=== PATIENT | female | born 1965 | race Caucasian/White ===

== ENCOUNTER 2022-01-23 06:10 | Inpatient (IN) | payer BC, SELFPAY ==
[2022-01-23] VITALS (10 sets, daily range): BP systolic 142–189; BP diastolic 77–101; PULSE 63–98; RESP 16–24; TEMP 36.3–36.9; O2SAT 91–98; BMI 31.1; BMI 31.5
--- NOTE | 2022-01-23 06:46 | CRLHL7_ITS ---
For Patients: As a result of the Century Cures Act, medical imaging exams and procedure reports are released immediately into your electronic medical record. You may view this report before your referring provider. If you have questions, please contact your health care provider. INDICATION: Right lower quadrant pain TECHNIQUE: CT abdomen and pelvis without contrast COMPARISON: None. FINDINGS: Kidney/ureters: Right intrarenal calculus measuring 4 mm. Kidneys appear symmetric. No evidence of ureteral calculus or hydronephrosis. Liver/gallbladder/bile ducts: The liver is normal in size, shape and attenuation. Gallbladder surgically absent. No biliary dilatation. Spleen/pancreas/adrenal glands: The spleen, adrenal glands and pancreas are within normal limits. GI tract: Moderately dilated fluid-filled loops of bowel within the left lower to mid abdomen. Although evaluation is limited due to lack of IV contrast suspect transition point within the mid abdomen on series 4, image 33. Is associated swirling and inflammation of the mesentery. Colonic diverticulosis without evidence of acute diverticulitis. Mild fecal retention throughout the colon. The appendix appears unremarkable. Abdominal wall/omentum/peritoneum: No free air or significant free fluid. No mass or inflammation. Lymph nodes: Few mildly prominent right lower quadrant mesenteric lymph nodes which are nonspecific and may be reactive. Pelvis: Unremarkable pelvis. Lower chest: Unremarkable. IMPRESSION: Moderately dilated fluid-filled loops of bowel within the left lower to mid abdomen. Although evaluation is limited due to lack of IV contrast suspect transition point within the mid abdomen. Findings concerning for small bowel obstruction, possibly a closed loop. Colonic diverticulosis without evidence of acute diverticulitis. Nonobstructing right renal calculus. Please note that all CT scans at this facility use dose modulation, iterative reconstruction, and/or weight-based dosing when appropriate to reduce radiation dose to as low as reasonably achievable. Dictated by Azeem Tavera MD @ 01/23/2022 8:09:56 AM (Electronically Signed)
--- NOTE | 2022-01-23 06:49 | ED_ITS ---
HPI - General Adult General Date Seen: 01/23/22 <Reymundo Magallanes MD - Last Filed: 01/23/22 08:34> Chief complaint: Abdominal Pain <Reymundo Magallanes MD - Last Filed: 01/23/22 08:34> Stated complaint: Appendicitis <Reymundo Magallanes MD - Last Filed: 01/23/22 08:34> Time Seen by Provider: 01/23/22 06:33 <Reymundo Magallanes MD - Last Filed: 01/23/22 08:34> Source: patient <Reymundo Magallanes MD - Last Filed: 01/23/22 08:34> Mode of arrival: ambulatory <Reymundo Magallanes MD - Last Filed: 01/23/22 08:34> Limitations: no limitations <Reymundo Magallanes MD - Last Filed: 01/23/22 08:34> History of Present Illness HPI narrative: Patient is a 56-year-old female who was working overnight POST when she had sudden onset of pain at around 2:00 a.m.. This pain was initially generalized but is more severe on her right side. There has been no dysuria. She has vomited several times and has had the dry heaves. No fevers or chills. Her diet yesterday consisted of Doritos and a candy bar. She has had a previous cholecystectomy and tubal ligation. She is not having any acid reflux symptoms. She has never had this type of pain before. <Reymundo Magallanes MD - Last Filed: 01/23/22 08:34> Related Data Home medications: Home Medications Medication Instructions Recorded Confirmed amlodipine 10 mg tablet 10 mg PO DAILY 01/23/22 01/23/22 cetirizine 10 mg tablet 10 mg PO DAILY PRN 01/23/22 01/23/22 epinephrine 0.3 mg/0.3 mL 0.3 ml IM PRN PRN 01/23/22 01/23/22 injection, auto-injector fluticasone propionate 50 2 spray intranasal DAILY 01/23/22 01/23/22 mcg/actuation nasal spray,suspension ibuprofen 600 mg tablet 600 mg PO Q6H PRN 01/23/22 01/23/22 levothyroxine 137 mcg tablet 137 mcg PO DAILY 01/23/22 01/23/22 <Reymundo Magallanes MD - Last Filed: 01/23/22 08:34> Allergies/adverse reactions: Allergies Allergy/AdvReac Type Severity Reaction Status Date / Time Cephalosporins Allergy Severe Anaphylaxis Verified 01/23/22 06:33 iodine Allergy Severe Anaphylaxis Verified 01/23/22 06:33 lemon Allergy Severe Anaphylaxis Verified 01/23/22 06:33 sleetmute Allergy Severe Anaphylaxis Verified 01/23/22 06:33 Penicillins Allergy Severe Anaphylaxis Verified 01/23/22 06:33 tree nut Allergy Severe Anaphylaxis Verified 01/23/22 06:33 cefaclor [From Ceclor] Allergy Unknown Verified 01/23/22 06:33 cefprozil [From Cefzil] Allergy Unknown Verified 01/23/22 06:33 cefuroxime [From Ceftin] Allergy Unknown Verified 01/23/22 06:33 <Reymundo Magallanes MD - Last Filed: 01/23/22 08:34> Review of Systems Narrative: Review of systems is outlined above otherwise noted to be negative. Her other health problems include hypertension and Graves disease. She takes amlodipine and levothyroxine and a 2nd blood pressure medication that she does not recall the name of. <Reymundo Magallanes MD - Last Filed: 01/23/22 08:34> [facility] Medical History: Medical History (Updated 01/23/22 @ 08:19 by Nabil Gilbert MD) Asthma Chronic tonsil and adenoid disease Graves disease Hypertension Motion sickness <Reymundo Magallanes MD - Last Filed: 01/23/22 08:34> Surgical History: Surgical History (Updated 01/23/22 @ 07:12 by Heike Arita RN) H/O hernia repair H/O tubal ligation Hx of cholecystectomy <Reymundo Magallanes MD - Last Filed: 01/23/22 08:34> Social History: Social History Smoking Status: Current every day smoker What tobacco products do you use: cigarettes Smoking packs per day: 0.5 Smoking cigarettes per day: 10.0 Years smoked: 30 Smoking pack-years: 15.00 Do you use any of these nicotine containing products: None Second hand tobacco smoke exposure: No Non-prescribed substance use: denies use service: No <Reymundo Magallanes MD - Last Filed: 01/23/22 08:34> Exam Narrative: Exam Narrative: Vitals noted. HEENT: Conjunctiva clear. Neck is supple without adenopathy. Lungs: Clear to auscultation in all spaulding. No wheezes, rales, rhonchi. Heart: Regular rate and rhythm without murmur. Abdomen: Her abdomen is soft. No guarding, rigidity, rebound. Bowel sounds are normal. No palpable masses. She is very tender but her exam is hard to reproduce. Does seem that the right mid abdomen is the most tender area. Extremities: No cyanosis or edema. Good distal pulses. Skin: No abnormalities noted of the exposed skin. Neurologic: Awake, alert, fully oriented. Neurologic exam is nonfocal. <Reymundo Magallanes MD - Last Filed: 01/23/22 08:34> Const: Vital Signs, click to edit/add: Vital Signs - 24 hr 01/23/22 06:27 01/23/22 08:20 01/23/22 08:40 Temperature 97.7 F 97.4 F L Pulse Rate [Left P ulse Oximeter] 84 78 69 Respiratory Rate 24 16 16 Blood Pressure [Ri ght Upper Arm] 173/101 H 156/80 H 156/80 H Pulse Oximetry 98 98 98 Oxygen Delivery Me thod Room Air Room Air Room Air 01/23/22 09:00 01/23/22 09:20 Temperature 97.4 F L Pulse Rate [Left P ulse Oximeter] 93 98 Respiratory Rate 16 16 Blood Pressure [Ri ght Upper Arm] 142/88 H 142/80 H Pulse Oximetry 97 95 Oxygen Delivery Me thod Room Air Room Air <Reymundo Magallanes MD - Last Filed: 01/23/22 08:34> Vital Signs, click to edit/add: Vital Signs - 24 hr 01/23/22 06:27 01/23/22 08:20 01/23/22 08:40 Temperature 97.7 F 97.4 F L Pulse Rate [Left P ulse Oximeter] 84 78 69 Respiratory Rate 24 16 16 Blood Pressure [Ri ght Upper Arm] 173/101 H 156/80 H 156/80 H Pulse Oximetry 98 98 98 Oxygen Delivery Me thod Room Air Room Air Room Air 01/23/22 09:00 01/23/22 09:20 Temperature 97.4 F L Pulse Rate [Left P ulse Oximeter] 93 98 Respiratory Rate 16 16 Blood Pressure [Ri ght Upper Arm] 142/88 H 142/80 H Pulse Oximetry 97 95 Oxygen Delivery Me thod Room Air Room Air <Nabil Gilbert MD - Last Filed: 01/23/22 10:38> Course Course Hospital Course: Patient is seen and examined. Labs and CT of her abdomen are ordered. IV is established and normal saline at a rate of 500 mL/hour is ordered. She is given fentanyl 50 mcg IV and Zofran 4 mg IV. <Reymundo Magallanes MD - Last Filed: 01/23/22 08:34> Vital Signs Vital signs: Initial Vital Signs Temperature 97.7 F 01/23/22 06:27 Temperature Source Temporal Artery Scan 01/23/22 06:27 Pulse Rate 84 01/23/22 06:27 Respiratory Rate 24 01/23/22 06:27 Blood Pressure 173/101 H 01/23/22 06:27 Blood Pressure Mean 125 01/23/22 06:27 Blood Pressure Position Semi-Fowlers 01/23/22 06:27 Pulse Oximetry 98 01/23/22 06:27 Oxygen Delivery Method 01/23/22 06:27 Vital Signs Temperature 97.7 F 01/23/22 06:27 Pulse Rate 84 01/23/22 06:27 Respiratory Rate 24 01/23/22 06:27 Blood Pressure 173/101 H 01/23/22 06:27 Pulse Oximetry 98 01/23/22 06:27 Oxygen Delivery Method 01/23/22 06:27 Temperature 97.8 F 01/23/22 09:47 Pulse Rate 72 01/23/22 09:47 Respiratory Rate 16 01/23/22 09:47 Blood Pressure 189/81 H 01/23/22 09:47 Pulse Oximetry 96 01/23/22 09:47 Oxygen Delivery Method 01/23/22 09:47 <Reymundo Magallanes MD - Last Filed: 01/23/22 08:34> Initial Vital Signs Temperature 97.7 F 01/23/22 06:27 Temperature Source Temporal Artery Scan 01/23/22 06:27 Pulse Rate 84 01/23/22 06:27 Respiratory Rate 24 01/23/22 06:27 Blood Pressure 173/101 H 01/23/22 06:27 Blood Pressure Mean 125 01/23/22 06:27 Blood Pressure Position Semi-Fowlers 01/23/22 06:27 Pulse Oximetry 98 01/23/22 06:27 Oxygen Delivery Method 01/23/22 06:27 Vital Signs Temperature 97.7 F 01/23/22 06:27 Pulse Rate 84 01/23/22 06:27 Respiratory Rate 24 01/23/22 06:27 Blood Pressure 173/101 H 01/23/22 06:27 Pulse Oximetry 98 01/23/22 06:27 Oxygen Delivery Method 01/23/22 06:27 Temperature 97.8 F 01/23/22 09:47 Pulse Rate 72 01/23/22 09:47 Respiratory Rate 16 01/23/22 09:47 Blood Pressure 189/81 H 01/23/22 09:47 Pulse Oximetry 96 01/23/22 09:47 Oxygen Delivery Method 01/23/22 09:47 <Nabil Gilbert MD - Last Filed: 01/23/22 10:38> Medical Decision Making MDM Narrative Medical decision making narrative: A scald by regarding the patient's CT scan, and she has a probable small- bowel obstruction, question close loop. Left lower abdomen. Her appendix looks normal. Her laboratory studies show an elevated white blood cell count. The patient will be admitted, surgical consult, will talk to the hospitalist. <Nabil Gilbert MD - Last Filed: 01/23/22 10:38> Lab Data Labs: Lab Results 01/23/22 01/23/22 01/23/22 Range/Units 06:45 06:45 08:00 WBC 13.08 H (4.50-11.00) K/uL RBC 4.72 (4.00-5.20) m/uL Hgb 14.1 (12.0-16.0) gm/dL Hct 41.4 (33.0-51.0) % MCV 88 (80-100) fL MCH 30 (26-34) pg MCHC 34 (32-36) gm/dL RDW Coeff of Sukhdev 11.7 (11.5-15.5) % Plt Count 215 (140-440) K/uL Neut % (Auto) 82.4 H (42.0-72.0) % Lymph % (Auto) 11.9 L (20-44) % [place] % (Auto) 5.0 (0.0-11.0) % Eos % (Auto) 0.2 (0.0-7.0) % Baso % (Auto) 0.4 (0.0-3.0) % Neut # (Auto) 10.80 H (1.7-7.0) K/uL Lymph # (Auto) 1.60 (0.90-2.90) K/uL [place] # (Auto) 0.70 (0.00-0.90) K/UL Eos # (Auto) 0.00 (0.00-0.50) K/uL Baso # (Auto) 0.10 (0.00-0.30) K/uL Abs Immat Gran (auto) 0.00 (0.00-0.30) K/uL Imm/Tot Granulo (auto) 0.1 % Sodium 138 (135-149) mmol/L Potassium 3.5 L (3.6-5.1) mmol/L Chloride 104 (96-114) mmol/L Carbon Dioxide 26 (20-32) mmol/L BUN 16 (7-30) mg/dL Creatinine 0.7 (0.5-1.5) mg/dL Estimated Creat Clear 72.66 Estimated GFR 103 ml/min Glucose 133 H (60-115) mg/dL Calcium 9.3 (8.4-10.6) mg/dL Total Bilirubin 0.7 (0.1-1.5) mg/dL Direct Bilirubin 0.1 (0.0-0.5) mg/dL AST 27 (12-35) U/L ALT 25 (4-35) U/L Alkaline Phosphatase 97 (40-150) U/L Total Protein 7.2 (6.0-8.3) g/dL Albumin 4.2 (3.3-5.0) g/dL Urine Color Yellow (Yellow) Urine Appearance Clear (Clear) Urine pH 7.0 (5.0-8.5) Ur Specific [place] 1.025 (1.000-1.030) Urine Protein 2+ A (Negative) Urine Glucose (UA) Negative (Negative) Urine Ketones 3+ A (Negative) Urine Blood 2+ A (Negative) Urine Nitrite Negative (Negative) Urine Bilirubin Negative (Negative) Urine Urobilinogen 0.2 (0.2-1.0) Ur Leukocyte Esterase Negative (Negative) Urine RBC 5-10 A (0-2) Urine WBC 0-2 (0-5) Ur Squamous Epith Cells Few (None-Few) Urine Bacteria None (None) SARS-CoV-2 (PCR) (Negative) Influenza Type A (PCR) (Negative) Influenza Type B (PCR) (Negative) RSV (PCR) (Negative) 01/23/22 Range/Units 08:14 WBC (4.50-11.00) K/uL RBC (4.00-5.20) m/uL Hgb (12.0-16.0) gm/dL Hct (33.0-51.0) % MCV (80-100) fL MCH (26-34) pg MCHC (32-36) gm/dL RDW Coeff of Sukhdev (11.5-15.5) % Plt Count (140-440) K/uL Neut % (Auto) (42.0-72.0) % Lymph % (Auto) (20-44) % [place] % (Auto) (0.0-11.0) % Eos % (Auto) (0.0-7.0) % Baso % (Auto) (0.0-3.0) % Neut # (Auto) (1.7-7.0) K/uL Lymph # (Auto) (0.90-2.90) K/uL [place] # (Auto) (0.00-0.90) K/UL Eos # (Auto) (0.00-0.50) K/uL Baso # (Auto) (0.00-0.30) K/uL Abs Immat Gran (auto) (0.00-0.30) K/uL Imm/Tot Granulo (auto) % Sodium (135-149) mmol/L Potassium (3.6-5.1) mmol/L Chloride (96-114) mmol/L Carbon Dioxide (20-32) mmol/L BUN (7-30) mg/dL Creatinine (0.5-1.5) mg/dL Estimated Creat Clear Estimated GFR ml/min Glucose (60-115) mg/dL Calcium (8.4-10.6) mg/dL Total Bilirubin (0.1-1.5) mg/dL Direct Bilirubin (0.0-0.5) mg/dL AST (12-35) U/L ALT (4-35) U/L Alkaline Phosphatase (40-150) U/L Total Protein (6.0-8.3) g/dL Albumin (3.3-5.0) g/dL Urine Color (Yellow) Urine Appearance (Clear) Urine pH (5.0-8.5) Ur Specific [place] (1.000-1.030) Urine Protein (Negative) Urine Glucose (UA) (Negative) Urine Ketones (Negative) Urine Blood (Negative) Urine Nitrite (Negative) Urine Bilirubin (Negative) Urine Urobilinogen (0.2-1.0) Ur Leukocyte Esterase (Negative) Urine RBC (0-2) Urine WBC (0-5) Ur Squamous Epith Cells (None-Few) Urine Bacteria (None) SARS-CoV-2 (PCR) Negative SARS-CoV-2 (Negative) Influenza Type A (PCR) Negative PCR FLU A (Negative) Influenza Type B (PCR) Negative PCR FLU B (Negative) RSV (PCR) Negative PCR RSV (Negative) <Reymundo Magallanes MD - Last Filed: 01/23/22 08:34> Lab Results 01/23/22 01/23/22 01/23/22 Range/Units 06:45 06:45 08:00 WBC 13.08 H (4.50-11.00) K/uL RBC 4.72 (4.00-5.20) m/uL Hgb 14.1 (12.0-16.0) gm/dL Hct 41.4 (33.0-51.0) % MCV 88 (80-100) fL MCH 30 (26-34) pg MCHC 34 (32-36) gm/dL RDW Coeff of Sukhdev 11.7 (11.5-15.5) % Plt Count 215 (140-440) K/uL Neut % (Auto) 82.4 H (42.0-72.0) % Lymph % (Auto) 11.9 L (20-44) % [place] % (Auto) 5.0 (0.0-11.0) % Eos % (Auto) 0.2 (0.0-7.0) % Baso % (Auto) 0.4 (0.0-3.0) % Neut # (Auto) 10.80 H (1.7-7.0) K/uL Lymph # (Auto) 1.60 (0.90-2.90) K/uL [place] # (Auto) 0.70 (0.00-0.90) K/UL Eos # (Auto) 0.00 (0.00-0.50) K/uL Baso # (Auto) 0.10 (0.00-0.30) K/uL Abs Immat Gran (auto) 0.00 (0.00-0.30) K/uL Imm/Tot Granulo (auto) 0.1 % Sodium 138 (135-149) mmol/L Potassium 3.5 L (3.6-5.1) mmol/L Chloride 104 (96-114) mmol/L Carbon Dioxide 26 (20-32) mmol/L BUN 16 (7-30) mg/dL Creatinine 0.7 (0.5-1.5) mg/dL Estimated Creat Clear 72.66 Estimated GFR 103 ml/min Glucose 133 H (60-115) mg/dL Calcium 9.3 (8.4-10.6) mg/dL Total Bilirubin 0.7 (0.1-1.5) mg/dL Direct Bilirubin 0.1 (0.0-0.5) mg/dL AST 27 (12-35) U/L ALT 25 (4-35) U/L Alkaline Phosphatase 97 (40-150) U/L Total Protein 7.2 (6.0-8.3) g/dL Albumin 4.2 (3.3-5.0) g/dL Urine Color Yellow (Yellow) Urine Appearance Clear (Clear) Urine pH 7.0 (5.0-8.5) Ur Specific [place] 1.025 (1.000-1.030) Urine Protein 2+ A (Negative) Urine Glucose (UA) Negative (Negative) Urine Ketones 3+ A (Negative) Urine Blood 2+ A (Negative) Urine Nitrite Negative (Negative) Urine Bilirubin Negative (Negative) Urine Urobilinogen 0.2 (0.2-1.0) Ur Leukocyte Esterase Negative (Negative) Urine RBC 5-10 A (0-2) Urine WBC 0-2 (0-5) Ur Squamous Epith Cells Few (None-Few) Urine Bacteria None (None) SARS-CoV-2 (PCR) (Negative) Influenza Type A (PCR) (Negative) Influenza Type B (PCR) (Negative) RSV (PCR) (Negative) 01/23/22 Range/Units 08:14 WBC (4.50-11.00) K/uL RBC (4.00-5.20) m/uL Hgb (12.0-16.0) gm/dL Hct (33.0-51.0) % MCV (80-100) fL MCH (26-34) pg MCHC (32-36) gm/dL RDW Coeff of Sukhdev (11.5-15.5) % Plt Count (140-440) K/uL Neut % (Auto) (42.0-72.0) % Lymph % (Auto) (20-44) % [place] % (Auto) (0.0-11.0) % Eos % (Auto) (0.0-7.0) % Baso % (Auto) (0.0-3.0) % Neut # (Auto) (1.7-7.0) K/uL Lymph # (Auto) (0.90-2.90) K/uL [place] # (Auto) (0.00-0.90) K/UL Eos # (Auto) (0.00-0.50) K/uL Baso # (Auto) (0.00-0.30) K/uL Abs Immat Gran (auto) (0.00-0.30) K/uL Imm/Tot Granulo (auto) % Sodium (135-149) mmol/L Potassium (3.6-5.1) mmol/L Chloride (96-114) mmol/L Carbon Dioxide (20-32) mmol/L BUN (7-30) mg/dL Creatinine (0.5-1.5) mg/dL Estimated Creat Clear Estimated GFR ml/min Glucose (60-115) mg/dL Calcium (8.4-10.6) mg/dL Total Bilirubin (0.1-1.5) mg/dL Direct Bilirubin (0.0-0.5) mg/dL AST (12-35) U/L ALT (4-35) U/L Alkaline Phosphatase (40-150) U/L Total Protein (6.0-8.3) g/dL Albumin (3.3-5.0) g/dL Urine Color (Yellow) Urine Appearance (Clear) Urine pH (5.0-8.5) Ur Specific [place] (1.000-1.030) Urine Protein (Negative) Urine Glucose (UA) (Negative) Urine Ketones (Negative) Urine Blood (Negative) Urine Nitrite (Negative) Urine Bilirubin (Negative) Urine Urobilinogen (0.2-1.0) Ur Leukocyte Esterase (Negative) Urine RBC (0-2) Urine WBC (0-5) Ur Squamous Epith Cells (None-Few) Urine Bacteria (None) SARS-CoV-2 (PCR) Negative SARS-CoV-2 (Negative) Influenza Type A (PCR) Negative PCR FLU A (Negative) Influenza Type B (PCR) Negative PCR FLU B (Negative) RSV (PCR) Negative PCR RSV (Negative) <Nabil Gilbert MD - Last Filed: 01/23/22 10:38> Discharge Plan Discharge Clinical Impression: Bowel obstruction <Reymundo Magallanes MD - Last Filed: 01/23/22 08:34> Patient Disposition: Admitted As Inpatient <Reymundo Magallanes MD - Last Filed: 01/23/22 08:34> Condition: Improved <Reymundo Magallanes MD - Last Filed: 01/23/22 08:34>
[2022-01-23 07:00] LABS: Basophils Percent Auto 0.4 % (0.0-3.0); Eosinophils Percent Auto 0.2 % (0.0-7.0); Hematocrit 41.4 % (33.0-51.0); Hemoglobin* 14.1 gm/dL (12.0-16.0); Immature Granulocytes Pct Auto 0.1 %; Lymphocytes Percent Auto 11.9 % (20-44); Mean Corpuscular HGB Conc 34 gm/dL (32-36); Mean Corpuscular Hemoglobin 30 pg (26-34); Mean Corpuscular Volume 88 fL (80-100); Neutrophils Percent Auto 82.4 % (42.0-72.0); Platelet Count* 215 K/uL (140-440); RDW Coefficient of Variation % 11.7 % (11.5-15.5); Red Blood Count 4.72 m/uL (4.00-5.20); White Blood Count* 13.08 K/uL (4.50-11.00)
[2022-01-23 07:03] LABS: Slide Review Reflex No
[2022-01-23] MEDS: 0.9 % SODIUM CHLORIDE 1000 ml 1,000 ML 500 ML IV (07:08)
[2022-01-23] MEDS: fentaNYL 100 MCG/2 ML inj 50 MCG IVP (07:15)
[2022-01-23] MEDS: ONDANSETRON 2 MG/ML inj 4 MG IVP ×3 (07:15→23:38)
--- OUTSIDE RECORDS SUMMARY | 2022-01-23 07:15 | XMS_ITS | Encounter Summary ---
:1965 Author Organization [facility] Address [address] [place] [address] Care Team Providers Name Role Phone Fausto Good P.A.-C. Primary Care Provider [phone] Reason for Visit Reason Comments Hypertension Encounter Details Date Type Department Care Team Description 08/30/2021 Clinical Communication Department of Fausto Lam, Hypertension Medicine, [place] [facility], in [address] [address] [place], [place] [phone] (Work) [phone] Social History Tobacco Use Types Packs/Day Years Used Date Smoking Tobacco: Every Day Cigarettes 0.5 35 S tarted: 02/10/1982 E-cigarettes Smokeless Tobacco: Never Alcohol Use Standard Drinks/Week Comments Yes 0 (1 standard drink = 0.6 oz pure alcoho l) Daily caffeine Alcohol Habits Answer Date Recorded How often do you have a drink containing alcohol? 2-4 times a month 02/16/2021 How many drinks containing alcohol do you have on a 1 or 2 02/16/2021 typical day when you are drinking? How often do you have six or more drinks on one Never 02/16/2021 occasion? Social Isolation Answer Date Recorded In a typical week, how many times do you More than three blue es a week 02/16/2021 talk on the phone with family, friends, or neighbors? How often do you get together with friends Never 02/16/2021 or relatives? How often do you attend pentecostalism or Never 2021 sabianist services? Do you belong to any clubs or No 02/16/2021 organizations such as pentecostalism groups, unions, fraternal or athletic groups, or school groups? How often do you attend meetings of the Never 02/16/2021 clubs or organizations you belong to? Are you now , , , 02/16/2021 , never or living with a partner? Physical Activity Answer Date Recorded On average, how many days per week do you engage in moderate to 5 days 02/16/2021 strenuous exercise (like walking fast, running, jogging, dancing, swimming, biking, or other activities that cause a light or heavy sweat)? On average, how many minutes do you engage in exercise at th is 60 min 02/16/2021 level? Stress Answer Date Recorded Do you feel stress - tense, restless, nervous, or To some ex tent 02/16/2021 anxious, or unable to sleep at night because your mind is troubled all the time - these days? Financial Resource Strain Answer Date Recorded How hard is it for you to pay for the very basics like Somew hat hard 02/16/2021 food, housing, medical care, and heating? Intimate Partner Violence Answer Date Recorded Within the last year, have you been afraid of your partner o r No 02/16/2021 ex-partner? Within the last year, have you been humiliated or emotionall y No 02/16/2021 abused in other ways by your partner or ex-partner? Within the last year, have you been kicked, hit, slapped, or No 02/16/2021 otherwise physically hurt by your partner or ex-partner? Within the last year, have you been raped or forced to have any No 02/16/2021 kind of sexual activity by your partner or ex-partner? Food Insecurity Answer Date Recorded Within the past 12 months, you worried that your food would Never true 02/16/2021 run out before you got money to buy more. Within the past 12 months, the food you bought just didn't N ever true 02/16/2021 last and you didn't have money to get more. Transportation Needs Answer Date Recorded In the past 12 months, has lack of transportation kept you f rom No 02/16/2021 medical appointments or from getting medications? In the past 12 months, has lack of transportation kept you f rom No 02/16/2021 meetings, work, or getting things needed for daily living? Housing Stability Answer Date Recorded In the last 12 months, was there a time when you were not ab le No 02/16/2021 to pay the mortgage or rent on time? In the last 12 months, how many places have you lived? 1 02/16/2021 In the last 12 months, was there a time when you did not hav e a No 02/16/[address] or slept in a care home (including now)? Education Answer Date Recorded What is the highest level of school you have Some college, n o degree 09/27/2018 completed or the highest degree you have received? Sex Assigned at Date Recorded Female 10/01/2017 7:47 AM CDT documented as of this encounter Miscellaneous Notes Telephone Encounter - Francy Dinh - 08/30/2021 12:24 PM CDT Left message for patient to return call to clinic. Does the patient need to speak to nursing? no Action needed: Patient due for one month follow up blood pressure check office visit. Orders in, please assist with scheduling. documented in this encounter Plan of Treatment Not on filedocumented as of this encounter Visit Diagnoses Not on filedocumented in this encounter Additional Health Concerns Assessment Noted Time PHQ-9 Depression Total Score: 7 08/23/2021 2:57 PM CDT documented as of this encounter Care Teams Cabinet Assembler Relationship Specialty Start Date End Date Fausto Good P.A.-C. PCP - General 07/25/[address] [place] [phone] documented as of this encounter
--- OUTSIDE RECORDS SUMMARY | 2022-01-23 07:15 | XMS_ITS | Encounter Summary ---
:1965 Author Organization [facility] Address [address] [place] [address] Care Team Providers Name Role Phone Fausto Good P.A.-C. Primary Care Provider [phone] Reason for Referral Outpatient (Routine) - Pending Review Specialty Diagnoses / Procedures Referred By Contact Refer red To Contact Diagnoses Primary Osteoarthritis Knee Left Asad Eubanks M.D. [facility] Region Procedures ptx-vcff-euxppqpf-elbow arthrocentesis: L knee joint [address] [place] [phone] Referral ID Status Reason Start Date Expiration Date Visits V isits Requested Authorized [id number] Pending 07/18/2021 07/18/2022 1 1 Review Reason for Visit Reason Comments Arthritis Injection Visit Appointment Request (Routine) - Closed Specialty Diagnoses / Procedures Referred By Contact Refer red To Contact Orthopedic Surgery Asad Eubanks M.D. [address] [place] [phone] Referral ID Status Reason Start Date Expiration Date Visits Requ ested Visits Authorized [id number] Closed 06/15/2021 06/15/2022 1 1 Encounter Details Date Type Department Care Team Description 07/18/2021 Office Visit Department of Asad Eubanks Primary Os teoarthritis Orthopedic Surgery eduardo Pandya M.D. Knee Left (Primary Dx) [place], [place] [address] [place] [phone] Social History Tobacco Use Types Packs/Day Years [...] or relatives? How often do you attend anabaptism or Never 2021 anabaptist services? Do you belong to any clubs or No 02/16/2021 organizations such as anabaptism groups, unions, fraternal or athletic groups, or [...] place to sleep or slept in a half-way (including now)? Education Answer Date Recorded What is the highest level of school you have Some college, n o degree 09/27/2018 completed or the highest degree you have received? Sex Assigned at Date Recorded Female 10/01/2017 7:47 AM CDT documented as of this encounter Procedure Notes Asad Eubanks M.D. - 07/18/2021 3:30 PM CDTAssociated Order(s): ttz-bnga-vszugxvo-elbow arthrocentesis: L knee joint Post-Procedure Diagnose(s): Primary Osteoarthritis Knee Left Knee site- L knee joint : injection only Date/Time: 07/18/2021 9:23 AM Performed by: Asad Eubanks M.D. Authorized by: Asad Eubanks M.D. PROCEDURE DETAILS Procedure Location knee Knee site: L knee joint Site prep: patient was prepped and draped in usual sterile fashion Patient position: seated Procedural approach: anterolateral Procedure performed: injection only Needle gauge: 21 G Procedural Medication The following medications were administered at the target site(s) Viscosupplement: 20 mg sodium hyaluronate (viscosup) 10 mg/mL(mw 2.4 -3.6 million) CONSENT Consent obtained: written UNIVERSAL PROTOCOL All relevant documentation and testing were reviewed and available. All required blood products, implants, devices and or special equipment were made available as applicable. Pre-procedure verificationwas conducted and the correct site was marked if required. A fire risk assessment was done as applicable. The procedural time-out to verify correct patient, correct side/site, and procedure was conducted prior to performing the procedure and confirmed in a procedural pause. PRE-PROCEDURE DETAILS Procedure purpose: therapeutic Indications: L knee DJD Appropriate hand hygiene, gown, cap, mask, protective eyewear, sterile gloves, skin preparation, sterile drape, and strict aseptic technique were utilized as applicable for the procedure. Site preparation: chlorhexidine SEDATION / ANESTHESIA Anesthesia method: none POST-PROCEDURE DETAILS Procedure completed successfully: yes Complications: no apparent complications Discharge instructions: ice area as needed for comfort documented in this encounter Plan of Treatment Not on filedocumented as of this encounter Procedures Procedure Name Priority Date/Time Associated Diagnosis Comme nts SD ARTHCS ASP/INJ Routine 07/18/2021 9:23 AM Primary Osteoarth ritis Results for this MJR JT WO US CDT Knee Left procedure are i n the results section. documented in this encounter Results SD ARTHCS ASP/INJ MJR JT WO US (07/18/2021 9:23 AM CDT) Narrative [facility]AL - 07/18/2021 9:23 AM CDT Asad Eubanks M.D. ? 07/18/2021 ??3:09 PM Knee site- L knee joint : injection only Date/Time: 07/18/2021 9:23 AM Performed by: Asad Eubanks M.D. Authorized by: Asad Eubanks M.D. PROCEDURE DETAILS Procedure Location knee Knee site: L knee joint Site prep: patient was prepped and drape d in usual sterile fashion ?? Patient position: seated Procedural approach: anterolateral Procedure performed: injection only Needle gauge: 21 G Procedural Medication The following medications were administe red at the target site(s) Viscosupplement: 20 mg sodium hyaluronat e (viscosup) 10 mg/mL(mw 2.4 -3.6 million) CONSENT Consent obtained: written UNIVERSAL PROTOCOL All relevant documentation and testing w ere reviewed and available. All required blood products, implants, devic es and or special equipment were made available as applicable. Pre-proced ure verification was conducted and the correct site was marked if required. A fire risk assessment was done as applicable. The procedural time-out t o verify correct patient, correct side/site, and procedure was conducted p rior to performing the procedure and confirmed in a procedural pause. PRE-PROCEDURE DETAILS Procedure purpose: therapeutic Indications: L knee DJD Appropriate hand hygiene, gown, cap, mas k, protective eyewear, sterile gloves, skin preparation, sterile drape, and strict aseptic technique were utilized as applicable for the procedure . Site preparation: chlorhexidine SEDATION / ANESTHESIA Anesthesia method: none POST-PROCEDURE DETAILS Procedure completed successfully: yes Complications: no apparent complications ?? Discharge instructions: ice area as need ed for comfort Asad Eubanks M.D. PROCEDURE/MINOR SURGICAL ORD ERABLES Performing Organization Address City/State/ZIP Code Phon e Number [facility] NA documented in this encounter Visit Diagnoses Diagnosis Primary Osteoarthritis Knee Left - Prima ry documented in this encounter Administered Medications Inactive Administered Medications - up to 3 most recent administrations Medication Order MAR Action Action Date Dose Rate Site sodium hyaluronate (viscosup) Given 07/18/2021 9:23 AM CDT 20 mg injection 20 mg (EUFLEXXA) 20 mg, intra-articular, One-Time Injection, Starting on Fri07/18/21 at 0923, For 1 dose documented in this encounter Additional Health Concerns Assessment Noted Time PHQ-9 Depression Total Score: 11 10/28/2018 2:28 PM CD T documented as of this encounter Care Teams Hoop Flaring Machine Operator Relationship Specialty Start Date End Date Fausto Good P.A.-C. PCP - General 07/25/[address] [place] [phone] documented as of this encounter
--- OUTSIDE RECORDS SUMMARY | 2022-01-23 07:15 | XMS_ITS | Encounter Summary ---
:1965 Author Organization [facility] Address [address] [place] [address] Care Team Providers Name Role Phone Fausto Good P.A.-C. Primary Care Provider [phone] Reason for Referral Outpatient (Routine) - Closed Specialty Diagnoses / Procedures Referred By Contact Refer red To Contact Family Medicine Fausto Good P. A.-C. [facility] Region [address] [place] [address] Referral ID Status Reason Start Date Expiration Date Visits Requ ested Visits Authorized [id number] Closed 08/23/2021 08/23/2022 1 1 Outpatient (Routine) - Closed Specialty Diagnoses / Procedures Referred By Contact Refer red To Contact Diagnoses Screening Mammogram Average Risk Patient Fausto Good P.A.-C. [facility] Procedures BI Breast Screening Bilateral with Tomosynthesis [address] [place] [phone] Referral ID Status Reason Start Date Expiration Date Visits Requ ested Visits Authorized [id number] Closed 08/23/2021 08/23/2022 1 1 Reason for Visit Reason Comments Med Refill Needs med refills and runny nose since covid in Outpatient (Routine) - Closed Specialty Diagnoses / Procedures Referred By Contact Refer red To Contact Family Medicine Fausto Good P. A.-C. [facility] Region [address] [place] [phone] Referral ID Status Reason Start Date Expiration Date Visits Requ ested Visits Authorized [id number] Closed 08/25/2020 08/25/2021 1 1 Encounter Details Date Type Department Care Team Description 08/23/2021 Office Visit Department of [facility] Fausto Good Sc reening Mammogram Average Risk Patient (Primary Dx); Medicine, Mariela Gerardo Hypertension Essential Primary; Clinic, in [address] Migraine Headache; [place], [place] Hypothyroidism; [address] [address] Rhinitis Allergic; [place], [place] [phone] General Medica l Examination Adult [address] (Work) [phone] Social History Tobacco Use Types Packs/Day Years [...] or relatives? How often do you attend protestant or Never 2021 mandaen services? Do you belong to any clubs or No 02/16/2021 organizations such as protestant groups, unions, fraternal or athletic groups, or [...] place to sleep or slept in a correction (including now)? Education Answer Date Recorded What is the highest level of school you have Some college, n o degree 09/27/2018 completed or the highest degree you have received? Sex Assigned at Date Recorded Female 10/01/2017 7:47 AM CDT documented as of this encounter Last Filed Vital Signs Vital Sign Reading Time Taken Comments Blood Pressure 153/83 08/23/2021 2:50 PM CDT Pulse 80 08/23/2021 2:48 PM CDT Temperature 36.1 ??C (97 ??F) 08/23/2021 2:48 PM CDT Respiratory Rate - - Oxygen Saturation - - Inhaled Oxygen Concentration - - Weight 84 kg (185 lb 3 oz) 08/23/2021 2:48 PM CDT Height - - Body Mass Index 32.81 03/21/2021 3:59 PM MRI MANAGER documented in this encounter H&P Notes Fausto Good P.A.-C. - 08/23/2021 3:00 PM CDT SUBJECTIVE CHIEF COMPLAINT / REASON FOR VISIT Hannah Kahn is a 56 y.o. female who presents for evaluation of Med Refill (Needs med refills and runny nose since covid in ). HISTORY OF PRESENT ILLNESS Hannah presents today for her yearly history and physical. For the most part she is doing well but he has had some nasal congestion and a sore in her nose that has bothered her for the last few months.She has also had a cough as a result. She does take lisinopril for her hypertension but she has beenon this for couple years in the cough has only been there for the last couple months. She does not have any known allergies. She is due for her mammogram and is due for some blood work as well today that was done prior to the visit. Current Outpatient Medications Medication Sig Dispense Refill ??? amLODIPine (NORVASC) 10 mg tablet Take 1 tablet (10 mg total) by mouth daily. 90 tablet 3 ??? EPINEPHrine 0.3 mg/0.3 mL injection syringe Inject 0.3 mL (0.3 mg total) intramuscularly as needed for anaphylaxis. Inject into the thigh. 1 each 1 ??? cetirizine (ZyrTEC) 10 mg tablet Take 1 tablet (10 mg total) by mouth daily as needed for allergies. 90 tablet 3 ??? fluticasone propionate (FLONASE) 50 mcg/actuation nasal spray Administer 2 sprays into each nostril daily. 48 g 3 ??? ibuprofen (ADVIL,MOTRIN) 600 mg tablet Take 1 tablet (600 mg total) by mouth every 6 (six) hoursas needed for pain or moderate pain or score 4-6 of 10 for up to 14 days. 56 tablet 0 ??? levothyroxine (SYNTHROID, LEVOTHROID) 150 mcg tablet Take 1 tablet (150 mcg total) by mouth daily. 90 tablet 3 ??? lisinopril-hydroCHLOROthiazide (PRINZIDE,ZESTORETIC) 20-12.5 mg per tablet Take 2 tablets by mouth daily. 180 tablet 3 No current facility-administered medications for this visit. Allergies Allergen Reactions ??? Amoxicillin Hives ??? Cefaclor Hives ??? Cefprozil Hives and Anaphylaxis Other reaction(s): Throat Swelling/Closing ??? Cefuroxime Other (see comments) ??? Cephalosporins Hives and Other (see comments) Other reaction(s): Throat Swelling/Closing ??? Iodinated Contrast Media Other (see comments) ??? Iodine Hives and Other (see comments) Other reaction(s): Throat Swelling/Closing ??? Lemon Juice Hives and Other (see comments) Other reaction(s): Throat Swelling/Closing ??? [place] Hives and Other (see comments) Other reaction(s): Throat Swelling/Closing ??? Penicillins Other (see comments) and Hives Other reaction(s): Throat Swelling/Closing ??? Shellfish Containing Products Anaphylaxis ??? Tree Nut Shortness of breath and Hives Other reaction(s): Throat Swelling/Closing [place] nuts- Use these nuts to make nutmeg Patient carries Epinephrine pen. MEDICAL HISTORY Patient Active Problem List Diagnosis ??? Migraine Headache ??? Hypertension Essential Primary ??? Hypothyroidism Past Surgical History: Procedure Laterality Date ??? CHOLECYSTECTOMY N/A Cholecystectomy ??? CHOLECYSTECTOMY ??? DILATATION AND CURETTAGE ??? ENDOMETRIAL THERMAL ABLATION N/A 05/20/2003 Endometrial ablation, thermal, without hysteroscopic guidance.. ??? GALLBLADDER SURGERY ??? HERNIA REPAIR ??? OTHER SURGICAL HISTORY ??? THYROIDECTOMY - TOTAL N/A 11/30/2018 Procedure: THYROIDECTOMY, TOTAL.; Surgeon: Elicia Shah M.D.; Location: [facility] ??? TONSILLECTOMY ??? TONSILLECTOMY AND ADENOIDECTOMY N/A Tonsillectomy and adenoidectomy ??? TUBAL LIGATION Social History Tobacco Use ??? Smoking status: Current Every Day Smoker Packs/day: 0.50 Years: 35.00 Pack years: 17.50 Types: Cigarettes, E-cigarettes Start date: 02/10/1982 ??? Smokeless tobacco: Never Used Substance Use Topics ??? Alcohol use: Yes Types: 6 Cans of beer per week Comment: Daily caffeine ??? Drug use: No Family History Adopted: Yes Problem Relation Age of Onset ??? Heart attack Mother OBJECTIVE Vitals: 08/23/21 1448 08/23/21 1450 BP: (!) 150/91 153/83 BP Location: Left arm Patient Position: Sitting Cuff Size: Regular Large Pulse: 80 Temp: 36.1 ??C Weight: 84 kg Body mass index is 32.81 kg/m??. PHYSICAL EXAMINATION General: Patient appears in no acute distress. ENT: TMs no erythema. Throat no erythema. Nasal mucosa shows no open sores Neck: No lymphadenopathy. No thyroid masses. Heart: Regular rate and rhythm. No murmurs. Lungs: Clear to auscultation. Abdomen: Soft and nontender to palpation. ASSESSMENT / PLAN #1 Screening Mammogram Average Risk Patient Will set her up for her mammogram #2 Hypertension Essential Primary Her blood pressure is elevated am going to double the dose of her lisinopril and keep her on 25 mg of hydrochlorothiazide. I will see her back in a month and recheck her blood pressure at that time #3 Migraine Headache These are quite infrequent. #4 Hypothyroidism Her TSH came back quite elevated at 17.3 and I am going to increase her levothyroxine to 150 mcg daily and recheck this in about six weeks. #5 Rhinitis Allergic I am going to start her on some Zyrtec and Flonase. If her cough persists we will consider switchingher lisinopril at follow-up #6 General Medical Examination Adult She just lost her dog which has made her quite sad she is grieving this but overall has a new puppy and says that she is doing better. She enjoys her job but is applying for advancement position within[employer]arassance. If she has any questions or problems she will let us know I am hopeful that she will beable to increase her exercise level as her energy should improve with the increased dose of levothyroxine. Fausto Good P.A.-C. documented in this encounter Plan of Treatment Scheduled Referrals Name Type Priority Associated Diagnoses Order [facility] Medicine Outpatient Referral Routine Expec brea: office visit 09/23/2021 (clinic) (Approximate), Expires: 11/23/2022 documented as of this encounter Results (ABNORMAL) BI Breast Screening Bilateral with Tomosynthesis (10/03/2021 3:43 PM CDT) Anatomical Region Laterality Modality Breast, Breast Imaging [facility] LOS, Breast Imaging [facility] LOS, [place] [address] Bilateral Mammography Imaging [facility] Specimen (Source) Anatomical Collection Method Collection Time Re ceived Time Location / / Volume Laterality 10/03/2021 4:40 PM CDT Impressions 10/03/2021 4:45 PM CDT Incomplete. ??Need additional imaging evaluation. RECOMMENDATION: ??Additional Imaging Diagnostic imaging evaluation. ASSESSMENT: ??BI-RADS: 0 - Incomplete: N eeds Additional Imaging Evaluation. Narrative 10/03/2021 4:45 PM CDT REVISED REPORT: EXAM: ??BI BREAST SCREENING BILATERAL WI TH TOMOSYNTHESIS Current study was evaluated with a Compu ter Aided Detection (CAD) system. INDICATION: ??Screening mammogram. COMPARISON: ??Prior exam(s) were availab le and reviewed for comparison. DENSITY: ??c. The breast(s) are heteroge neously dense, which may obscure small masses. FINDINGS: Possible focal asymmetry in th e right breast middle depth. ??No mammographic findings of malignancy in the left breast. Procedure Note Eliel Robertson M.B., Latrice Damon - REVISED REPORT: EXAM: BI BREAST SCREENING BILATERAL WITH TOMOSYNTHESIS Current study was evaluated with a Compu ter Aided Detection (CAD) system. INDICATION: Screening mammogram. COMPARISON: Prior exam(s) were available and reviewed for comparison. DENSITY: c. The breast(s) are heterogene ously dense, which may obscure small masses. FINDINGS: Possible focal asymmetry in th e right breast middle depth. No mammographic findings of malignancy in the left breast. IMPRESSION: Incomplete. Need additional imaging eval uation. RECOMMENDATION: Additional Imaging Diagnostic imaging evaluation. ASSESSMENT: BI-RADS: 0 - Incomplete: Nee ds Additional Imaging Evaluation. Fausto Good P.A.-C. IMG BI PROCEDURES (ABNORMAL) S-TSH (Thyroid-Stimulating Hormone - Sensitive) (10/03/2021 2:54 PM CDT) P athologist Signature TSH, Sensitive 0.2 (L) 0.3 - 4.2 10/03/2021 [facility] mIU/L 6:34 PM CDT Specimen Anatomical Collection Method Collection Time Receive d Time (Source) Location / / Volume Laterality Blood (Blood, 10/03/2021 2:54 PM 10/04/19 6:08 Venous) CDT PM CDT Fausto Good P.A.-C. LAB BLOOD ADD-ON Performing Organization Address City/State/ZIP Code Phon e Number [facility]- [address] [place] [address] [place] [address] System in [place] [address] documented in this encounter Visit Diagnoses Diagnosis Screening Mammogram Average Risk Patient - Primary Hypertension Essential Primary Migraine Headache Hypothyroidism Rhinitis Allergic General Medical Examination Adult Screening Mammogram Average Risk Patient documented in this encounter Additional Health Concerns Assessment Noted Time PHQ-9 Depression Total Score: 7 08/23/2021 2:57 PM CDT documented as of this encounter Care Teams Chiropractor Sole Practitioner Relationship Specialty Start Date End Date Fausto Good P.A.-C. PCP - General 07/25/[address] [place] [phone] documented as of this encounter
--- OUTSIDE RECORDS SUMMARY | 2022-01-23 07:15 | XMS_ITS | Clinical Summary ---
:1965 Author Organization [facility] Address [address] [place] [address] Care Team Providers Name Role Phone None, Pcp Primary Care Provider Unavailable Social History Tobacco Use Types Packs/Day Years Used Date Smoking Tobacco: Never Assessed Sex Assigned at Date Recorded Not on file Plan of Treatment Health Maintenance Due Date Last Done Comments CT Colonography 1965 Colonoscopy 1965 Colorectal Cancer Screening 1965 FIT-DNA 1965 Mammogram 1965 Pap Smear 1965 Sigmoidoscopy 1965 iFOBT 1965 COVID-19 Vaccine (3 - 08/18/2020 06/23/2020, 05/26/2020 Booster for Moderna series) Zoster Vaccines (2 of 2) 10/20/2020 08/25/2020 DTaP,Tdap,and Td Vaccines (3 08/25/2030 08/25/2020, 011, - Td or Tdap) 02/18/2000, Additional history exists HPV Vaccines Aged Out No longer eligib le based on patient 's age to complete this topic Pneumococcal Vaccine: Aged Out No longer eligible Pediatrics (0 to 5 Years) based on patient's age and At-Risk Patients (6 to to co mplete this topic 64 Years) Care Teams Revenue Director Relationship Specialty Start Date End Date None, Pcp PCP - General Ore Crusher 11/27/20 [address] [place] [address]
--- OUTSIDE RECORDS SUMMARY | 2022-01-23 07:15 | XMS_ITS | Encounter Summary ---
:1965 Author Organization [facility] Address [address] [place] [address] Care Team Providers Name Role Phone Fausto Good P.A.-C. Primary Care Provider [phone] Encounter Details Date Type Department Care Team Description 10/03/2021 Hospital Encounter Department of Fausto Good Hyp othyroidism Laboratory Medicine in [place], [place] [address] [phone] Social History Tobacco Use Types Packs/Day Years [...] or relatives? How often do you attend jew or Never 2021 anabaptism services? Do you belong to any clubs or No 02/16/2021 organizations such as jew groups, unions, fraternal or athletic groups, or [...] to pay for the very basics like [employer] hat hard 02/16/2021 food, housing, medical care, [...] place to sleep or slept in a nursing home (including now)? Education Answer Date Recorded What is the highest level of school you have Some college, n o degree 09/27/2018 completed or the highest degree you have received? Sex Assigned at Date Recorded Female 10/01/2017 7:47 AM CDT documented as of this encounter Medications at Time of Discharge Medication Sig Dispensed Refills Start Date End Date amLODIPine (NORVASC) Take 1 tablet (10 mg 90 tablet 3 08/23 10 mg tablet total) by mouth daily. cetirizine (ZyrTEC) Take 1 tablet (10 mg 90 tablet 3 2021 10 mg tablet total) by mouth daily as needed for allergies. fluticasone Administer 2 sprays 48 g 3 08/23/2021 propionate (FLONASE) into each nostril 50 mcg/actuation daily. nasal spray lisinopril-hydroCHLOR Take 2 tablets by mouth 180 tablet 3 0 08/23/2021 08/23/2022 Othiazide daily. (PRINZIDE,ZESTORETIC) 20-12.5 mg per tablet EPINEPHrine 0.3 Inject 0.3 mL (0.3 mg 1 each 1 1 10/08/2021 mg/0.3 mL injection total) intramuscularly syringe as needed for anaphylaxis. Inject into the thigh. ibuprofen Take 1 tablet (600 mg 56 tablet 0 04/09/2021 (ADVIL,MOTRIN) 600 mg total) by mouth every 6 tablet (six) hours as needed for pain or moderate pain or score 4-6 of 10 for up to 14 days. levothyroxine Take 1 tablet (150 mcg 90 tablet 3 08/23/2021 10/08/2021 (SYNTHROID, total) by mouth daily. LEVOTHROID) 150 mcg tablet documented as of this encounter Plan of Treatment Not on filedocumented as of this encounter Procedures Procedure Name Priority Date/Time Associated Diagnosis Comme nts THYROID-STIMULATING Routine 10/03/2021 2:54 PM Hypothyroidism Results for this HORMONE-SENSITIVE CDT procedure are in (S-TSH) the results section. documented in this encounter Results (ABNORMAL) S-TSH (Thyroid-Stimulating Hormone - Sensitive) (10/03/2021 2:54 PM CDT) athologist Signature TSH, Sensitive 0.2 (L) 0.3 - 4.2 10/03/2021 [place] mIU/L 6:34 PM CDT Specimen Anatomical Collection Method Collection Time Receive d Time (Source) Location / / Volume Laterality Blood (Blood, 10/03/2021 2:54 PM 10/04/19 6:08 Venous) CDT PM CDT Fausto Good P.A.-C. LAB BLOOD ADD-ON Performing Organization Address City/State/ZIP Code Phon e Number [facility]- [address] [place] [id number] [facility] [place] [address] System in [place] [address] [facility] [place] documented in this encounter Visit Diagnoses Diagnosis Hypothyroidism documented in this encounter Additional Health Concerns Assessment Noted Time PHQ-9 Depression Total Score: 7 08/23/2021 2:57 PM CDT documented as of this encounter Care Teams Business Development Specialist Relationship Specialty Start Date End Date Fausto Good P.A.-C. PCP - General 07/25/16 [address] [place] [phone] documented as of this encounter
--- OUTSIDE RECORDS SUMMARY | 2022-01-23 07:15 | XMS_ITS | Encounter Summary ---
:1965 Author Organization [facility] Address [address] [place] [address] Care Team Providers Name Role Phone Fausto Good P.A.-C. Primary Care Provider [phone] Reason for Referral Outpatient (Routine) - Pending Review Specialty Diagnoses / Procedures Referred By Contact Refer red To Contact Diagnoses Primary Osteoarthritis Knee Left Asad Eubanks M.D. [facility] Procedures ORS Non-Guided aspiration/injection [address] [place] [address] Referral ID Status Reason Start Date Expiration Date Visits V isits Requested Authorized [id number] Pending 06/06/2021 06/06/2022 3 3 Review Encounter Details Date Type Department Care Team Description 06/06/2021 Orders Only Department of Asad Eubanks Primary Os teoarthritis Orthopedic Surgery in Latrice Pandya Knee Left (Primary Dx) [place], [place] [address] [place] [phone] Social History Tobacco Use Types Packs/Day Years [...] or relatives? How often do you attend anglican or Never 2021 cheondoism services? Do you belong to any clubs or No 02/16/2021 organizations such as anglican groups, unions, fraternal or athletic groups, or [...] place to sleep or slept in a assisted (including now)? Education Answer Date Recorded What is the highest level of school you have Some college, n o degree 09/27/2018 completed or the highest degree you have received? Sex Assigned at Date Recorded Female 10/01/2017 7:47 AM CDT documented as of this encounter Plan of Treatment Not on filedocumented as of this encounter Visit Diagnoses Diagnosis Primary Osteoarthritis Knee Left - Prima ry documented in this encounter Additional Health Concerns Assessment Noted Time PHQ-9 Depression Total Score: 11 10/28/2018 2:28 PM CD T documented as of this encounter Care Teams Edge Sawyer Relationship Specialty Start Date End Date Fausto Good P.A.-C. PCP - General 07/25/16 [address] [place] [phone] documented as of this encounter
--- OUTSIDE RECORDS SUMMARY | 2022-01-23 07:15 | XMS_ITS | Encounter Summary ---
:1965 Author Organization [facility] Address [address] [place] [address] Care Team Providers Name Role Phone Fautso Good P.A.-C. Primary Care Provider Reason for Referral Outpatient (Routine) - Closed Specialty Diagnoses / Procedures Referred By Contact Refer red To Contact Diagnoses Screening Mammogram Average Risk Patient Fausto Good P.A.-C. [facility] Region Procedures BI Breast Screening Bilateral with Tomosynthesis [address] [place] [address] Referral ID Status Reason Start Date Expiration Date Visits Requ ested Visits Authorized [id number] Closed 08/23/2021 08/23/2022 1 1 Reason for Visit Outpatient (Routine) - Closed Specialty Diagnoses / Procedures Referred By Contact Refer red To Contact Diagnoses Screening Mammogram Average Risk Patient Fausto Good P.A.-C. [facility] Region Procedures BI Breast Screening Bilateral with Tomosynthesis [address] [place] [address] Referral ID Status Reason Start Date Expiration Date Visits Requ ested Visits Authorized [id number] Closed 08/23/2021 08/23/2022 1 1 Encounter Details Date Type Department Care Team Description 10/03/2021 Hospital Encounter Department of Milli Good Mammogram Radiology in Fausto, P.A.-C. Average Risk Patient Scout Sierra [address] [facility] [address] [address] [facility] [place] [phone] Social History Tobacco Use Types Packs/Day Years [...] or relatives? How often do you attend congregational or Never 2021 sabianism services? Do you belong to any clubs or No 02/16/2021 organizations such as congregational groups, unions, fraternal or athletic groups, or [...] place to sleep or slept in a penitentiary (including now)? Education Answer Date Recorded What [...] 1 tablet (10 mg 90 tablet 3 07/14 /2022 10 mg tablet total) by mouth daily. [...] encounter Procedures Procedure Name Priority Date/Time Associated Comments Diagnosis BI BREAST SCREENING RAD - Routine 10/03/2021 3:43 Screening Resu lts for BILATERAL WITH (most inpatients PM CDT Mammogram Average this procedure TOMOSYNTHESIS and all Risk Patient are in the outpatients) results section. documented in this encounter Results (ABNORMAL) BI Breast Screening Bilateral with Tomosynthesis (10/03/2021 3:43 PM CDT) Anatomical Region Laterality Modality Breast, Breast Imaging RST LOS, Breast Imaging ARZ LOS, Cehtna st Bilateral Mammography Imaging FLA LOS Specimen (Source) Anatomical Collection Method Collection Time [...] Evaluation. Fausto Good P.A.-C. IMG BI PROCEDURES documented in this encounter Visit Diagnoses Diagnosis Screening Mammogram Average Risk Patient documented in this encounter Additional Health Concerns Assessment Noted Time PHQ-9 Depression Total Score: 7 08/23/2021 2:57 PM CDT documented as of this encounter Care Teams Ict Support And Test Engineers Relationship Specialty Start Date End Date Fausto Good P.A.-C. PCP - General 07/25/16 [address] [place] [address] documented as of this encounter
--- OUTSIDE RECORDS SUMMARY | 2022-01-23 07:15 | XMS_ITS | Encounter Summary ---
:1965 Author Organization [facility] Address [address] [place] [id number] Care Team Providers Name Role Phone Fausto Good P.A.-C. Primary Care Provider [phone] Reason for Referral Outpatient (Routine) - Authorized Specialty Diagnoses / Procedures Referred By Contact Refer red To Contact Fausto Good P. A.-C. [facility] Region [address] [place] [address] Referral ID Status Reason Start Date Expiration Date Visits V isits Requested Authorized [id number] Authorized 09/11/2021 09/11/2022 1 1 Encounter Details Date Type Department Care Team Description 09/11/2021 Orders Only [facility] PCP [facility] MNT Fausto Good P.A.-C. [address] [place] [phone] (Wo rk) Social History Tobacco Use Types Packs/Day Years [...] or relatives? How often do you attend yarsanism or Never 2021 jain services? Do you belong to any clubs or No 02/16/2021 organizations such as yarsanism groups, unions, fraternal or athletic groups, or [...] place to sleep or slept in a long term (including now)? Education Answer Date Recorded What is the highest level of school you have Some college, n o degree 09/27/2018 completed or the highest degree you have received? Sex Assigned at Date Recorded Female 10/01/2017 7:47 AM CDT documented as of this encounter Plan of Treatment Scheduled Referrals Name Type Priority Associated Diagnoses [facility] Outpatient Referral Routine Ex pected: visit (clinic) - 09/25/2021, [facility] Region; Expires: BP check; BP check 3 only (RN LPN LVN) documented as of this encounter Visit Diagnoses Not on filedocumented in this encounter Additional Health Concerns Assessment Noted Time PHQ-9 Depression Total Score: 7 08/23/2021 2:57 PM CDT documented as of this encounter Care Teams Hospice Care Consultant Relationship Specialty Start Date End Date Fausto Good P.A.-C. PCP - General 07/25/16 [address] [place] [phone] documented as of this encounter
--- OUTSIDE RECORDS SUMMARY | 2022-01-23 07:15 | XMS_ITS | Encounter Summary ---
:1965 Author Organization [facility] Address [address] [place] [address] Care Team Providers Name Role Phone Fausto Good P.A.-C. Primary Care Provider [phone] Reason for Referral Outpatient (Routine) - Pending Review Specialty Diagnoses / Procedures Referred By Contact Refer red To Contact Diagnoses Primary Osteoarthritis Knee Left Arlene Madera, [facility] Region Procedures usx-mrto-lzjezknu-elbow arthrocentesis: L knee joint [address] [place] [address] Referral ID Status Reason Start Date Expiration Date Visits V isits Requested Authorized [id number] Pending 07/11/2021 07/11/2022 1 1 Review Reason for Visit Reason Comments Pain Appointment Request (Routine) - Closed Specialty Diagnoses / Procedures Referred By Contact Refer red To Contact Orthopedic Surgery Asad Eubanks M.D. [address] [place] [address] Referral ID Status Reason Start Date Expiration Date Visits Requ ested Visits Authorized [id number] Closed 06/15/2021 06/15/2022 1 1 Encounter Details Date Type Department Care Team Description 07/11/2021 Office Visit Department of Arlene Madera Primary O steoarthritis Orthopedic Surgery Humaira Sharma Knee Left (Primary Dx) in [place], [address] [place], [place] [address] [address] [place], [place] [phone] (Work) [phone] Social History Tobacco Use Types Packs/Day Years [...] do you attend anabaptism or Never 2021 sabianism services? Do you [...] documented as of this encounter Procedure Notes Arlene Madera P.A.-C. - 07/11/2021 11:00 AM CDTAssociated Order(s): uni-wrhj-vlkmmvuc-elbow arthrocentesis: L knee joint Post-Procedure Diagnose(s): Primary Osteoarthritis Knee Left Knee site- L knee joint : injection only Date/Time: 07/11/2021 10:45 AM Performed by: Arlene Madera P.A.-C. Authorized by: Arlene Madera P.A.-C. PROCEDURE DETAILS Procedure Location knee Knee site: [...] pause. PRE-PROCEDURE DETAILS Procedure purpose: therapeutic Indications: pain Appropriate hand hygiene, gown, cap, mask, protective eyewear, sterile gloves, skin preparation, sterile drape, and strict aseptic technique were utilized as applicable for the procedure. Site preparation: alcohol SEDATION / ANESTHESIA Anesthesia method: pre-procedure topical application and topical application Topical application type: aerosol cold spray POST-PROCEDURE DETAILS Procedure completed successfully: yes Complications: no apparent complications Discharge instructions: ice area as needed for comfort documented in this encounter Plan of Treatment Not on filedocumented as of this encounter Procedures Procedure Name Priority Date/Time Associated Diagnosis Comme nts WA ARTHCS ASP/INJ Routine 07/11/2021 10:45 Primary Osteoarthri tis Results for this MJR JT WO US AM CDT Knee Left procedure are i n the results section. documented in this encounter Results WA ARTHCS ASP/INJ MJR JT WO US (07/11/2021 10:45 AM CDT) Narrative MMODAL - 07/11/2021 10:45 AM CDT Arlene Madera P.A.-C. ? 07/11/2021 10:47 AM Knee site- L knee joint : injection only Date/Time: 07/11/2021 10:45 AM Performed by: Arlene Madera P.A.- C. Authorized by: Arlene Madera P.A. -C. PROCEDURE DETAILS Procedure Location knee Knee site: [...] pause. PRE-PROCEDURE DETAILS Procedure purpose: therapeutic Indications: pain Appropriate hand hygiene, gown, cap, mas k, protective eyewear, sterile gloves, skin preparation, sterile drape, and strict aseptic technique were utilized as applicable for the procedure . Site preparation: alcohol SEDATION / ANESTHESIA Anesthesia method: pre-procedure topical application and topical application Topical application type: aerosol cold s pray POST-PROCEDURE DETAILS Procedure completed successfully: yes Complications: no apparent complications ?? Discharge instructions: ice area as need ed for comfort Arlene Madera P.A.-C. PROCEDURE/MINOR SURGICAL OR DERABLES Performing Organization Address City/State/ZIP Code Phon e Number MMODAL MMODAL NA documented in this encounter Visit Diagnoses Diagnosis Primary Osteoarthritis Knee Left - Prima ry documented in this encounter Administered Medications Inactive Administered Medications - up to 3 most recent administrations Medication Order MAR Action Action Date Dose Rate Site sodium hyaluronate (viscosup) Given 07/11/2021 10:45 AM CDT 20 m g injection 20 mg ([id number]) 20 mg, intra-articular, One-Time Injection, Starting on Fri07/11/21 at 1045, For 1 dose documented in this encounter Additional Health Concerns Assessment Noted Time PHQ-9 Depression Total Score: 11 10/28/2018 2:28 PM CD T documented as of this encounter Care Teams Mexican Food Maker Relationship Specialty Start Date End Date Fausto Good P.A.-C. PCP - General 07/25/[address] [place] [phone] documented as of this encounter
--- OUTSIDE RECORDS SUMMARY | 2022-01-23 07:15 | XMS_ITS | Encounter Summary ---
:1965 Author Organization [facility] Address [address] [place] [address] Care Team Providers Name Role Phone Fausto Good P.A.-C. Primary Care Provider Reason for Referral Outpatient (Routine) - Authorized Specialty Diagnoses / Procedures Referred By Contact Refer red To Contact Orthopedic Surgery Diagnoses Pain Foot Right Fausto Good [facility] Region [address] [place] [address] Referral ID Status Reason Start Date Expiration Date Visits V isits Requested Authorized [id number] Authorized 10/08/2021 10/08/2022 1 1 Scheduling Instructions Ortho internal referral panel order, alfredo ging before Consult visit Outpatient (Routine) - Closed Specialty Diagnoses / Procedures Referred By Contact Refer red To Contact Diagnoses Pain Foot Right Fausto Good P.A.-C. [facility] Procedures DX Foot Right 3+ Views [address] [place] [address] Referral ID Status Reason Start Date Expiration Date Visits Requ ested Visits Authorized [id number] Closed 10/08/2021 10/08/2022 1 1 Outpatient (Routine) - Authorized Specialty Diagnoses / Procedures Referred By Contact Refer red To Contact Family Medicine Fausto Good P. A.-C. [address] [address] Referral ID Status Reason Start Date Expiration Date Visits V isits Requested Authorized [id number] Authorized 10/08/2021 10/07/2024 1 1 Reason for Visit Reason Comments Hypertension Was seen in August. Levothyrox ine and lisinopril/hydrochlorothiazed were increased. Outpatient (Routine) - Closed Specialty Diagnoses / Procedures Referred By Contact Refer vik To Contact Family Medicine [facility]usto [facility]. [facility].-[facility] [address] [address] Referral ID Status Reason Start Date Expiration Date Visits Requ ested Visits Authorized [id number] Closed 08/23/2021 08/23/2022 1 1 Encounter Details Date Type Department Care Team Description 10/08/2021 Office Visit Department of [facility] Henry Good [facility] Hypertension Essential Primary; Clinic, in [address] Hypothyroidism; [place], [place] Encounter For Screening For Cardiovascular Disorders; [address] [address] Pain Foot Right [place], [place] [phone] (Work) [phone] Social History Tobacco Use Types Packs/Day Years Used Date Smoking Tobacco: Every Day Cigarettes 0.5 35 S tarted: 02/10/1982 E-cigarettes Smokeless Tobacco: Never Tobacco Cessation: Ready to Quit: No; Co unseling Given: Yes Alcohol Use Standard Drinks/Week Comments Yes 0 [...] do you attend congregational or Never 2021 judaism services? Do you belong to any clubs [...] place to sleep or slept in a alf (including now)? Education Answer Date Recorded What is the highest level of school you have Some college, n o degree 09/27/2018 completed or the highest degree you have received? Sex Assigned at Date Recorded Female 10/01/2017 7:47 AM CDT documented as of this encounter Last Filed Vital Signs Vital Sign Reading Time Taken Comments Blood Pressure 115/77 10/08/2021 2:24 PM average of 3 CDT Pulse 79 10/08/2021 2:24 PM CDT Temperature 35.9 ??C (96.7 ??F) 10/08/2021 2:24 PM CDT Respiratory Rate 12 10/08/2021 2:24 PM CDT Oxygen Saturation - - Inhaled Oxygen Concentration - - Weight 81 kg (178 lb 9.2 oz) 10/08/2021 2:24 PM CDT Height 160 cm (5' 2.99) 10/08/2021 2:24 PM CDT Body Mass Index 31.64 10/08/2021 2:24 PM CDT documented in this encounter Progress Notes Fausto Good P.A.-C. - 10/08/2021 3:00 PM CDT SUBJECTIVE CHIEF COMPLAINT / REASON FOR VISIT Hannah Kahn is a 56 y.o. female who presents for evaluation of Hypertension (Was seenin August. Levothyroxine and lisinopril/hydrochlorothiazed were increased.). HISTORY OF PRESENT ILLNESS Hannah presents today for follow-up of a couple different issues. She has hypertension and we recently increased her medication she is tolerating it well her blood pressure is well controlled. She alsohas hypothyroidism. We recently increased to this medication as well but she is a little over supplemented with TSH of 0.2. For the most part she is feeling well. She also recently had her mammogram but does need to get some extra imaging. She has some pain in her foot that is bothered her for quite some time and she would like to look into this further. OBJECTIVE Vitals: 10/08/21 1424 BP: 115/77 BP Location: Right arm Patient Position: Sitting Cuff Size: Large Pulse: 79 Resp: 12 Temp: (!) 35.9 ??C TempSrc: Temporal Weight: 81 kg Height: 160 cm Body mass index is 31.64 kg/m??. PHYSICAL EXAMINATION In general she appears in no acute distress Foot: Her right foot has a prominence that is uncomfortable to the touch on the lateral aspect of her foot. There is no real erythema or cystic lesion in this area but there is a bony prominence. ASSESSMENT / PLAN #1 Screening Cancer Colon I put through colo guard she is overdue for this #2 Hypertension Essential Primary Continue on her current dose of lisinopril hydrochlorothiazide #3 Hypothyroidism I am going to decrease this to 137 mcg daily. I will recheck this again in six months #4 Encounter For Screening For Cardiovascular Disorders Will check a lipid panel at that time as well #5 Pain Foot Right I am going to obtain an x-ray of her foot ever follow-up with Podiatry. If she has questions or problems she will let us know. Total time spent 30 minute Fausto Good P.A.-C. documented in this encounter Plan of Treatment Pending Results Name Type Priority Associated Diagnoses Date/Ti wa Cologuard-Sent Out Lab Lab Routine Screening Cancer C olon 10/09/2021 2:01 AM CDT Scheduled Orders Name Type Priority Associated Diagnoses Order S cheector Cologuard-Sent Out Lab Lab Routine Screening Cancer C olon Expected: 10/09/2021, Expires: 2022 S-TSH Lab Routine Hypertension Essential Expec brea: 04/09/2022 (Thyroid-Stimulating Primary (Approximate), Hormone - Sensitive) Hypothyroid ism Expires: 10/08/2022 Encounter For Screening For Cardiovascular Disorders Lipid Panel Lab Routine Hypertension Essential Expec brea: 04/09/2022 Primary (Approximate), Hypothyroidism Expires: 10/08/2022 Encounter For Screening For Cardiovascular Disorders Basic Metabolic Panel Lab Routine Hypertension Essent ial Expected: 04/09/2022 Primary (Approximate), Hypothyroidism Expires: 01/08/2023 Encounter For Screening For Cardiovascular Disorders Scheduled Referrals Name Type Priority Associated Order Schedule Diagnoses Family Medicine Outpatient Referral Routine Expec brea: office visit 04/09/2022 (clinic) (Approximate), Expires: 01/08/2023 Orthopedic Surgery - Outpatient Referral Routine Pain Foot Rig ht Expected: Podiatry foot non 10/08/2021 surgical consult (Approximat e), (clinic) Expires: 01/08/2023 documented as of this encounter Results DX Foot Right 3+ Views (10/08/2021 3:46 PM CDT) Anatomical Region Laterality Modality Lower Extremity, Foot, Musculoskeletal RST LOS, Right Digital Radiography Musculoskeletal ARZ LOS, Muskuloskeletal FLA LOS Specimen (Source) Anatomical Collection Method Collection Time Re ceived Time Location / / Volume Laterality 10/08/2021 4:13 PM CDT Impressions 10/08/2021 4:14 PM CDT No comparison. Right pes planus and hindfoot valgus with a prominent right plantar calcaneal spur. Degenerative changes at the IP joints of both feet. Right foot is otherwise negative. Specifically, no fracture. Narrative 10/08/2021 4:14 PM CDT EXAM: ??DX FOOT RIGHT 3+ VIEWS Procedure Note Ines Boyle M.D. - 10/08/2021For matting of this note might be different from the original. EXAM: DX FOOT RIGHT 3+ VIEWS IMPRESSION: No comparison. Right pes planus and hind foot valgus with a prominent right plantar calcaneal spur. Degenerative changes at the IP joints of both feet. Right foot is otherwise negative. Specifically, no fracture. Fausto Good P.A.-C. [facility] documented in this encounter Visit Diagnoses Diagnosis Screening Cancer Colon - Primary Hypertension Essential Primary Hypothyroidism Encounter For Screening For Cardiovascul ar Disorders Pain Foot Right Pain Foot Right documented in this encounter Additional Health Concerns Assessment Noted Time PHQ-9 Depression Total Score: 7 08/23/2021 2:57 PM CDT documented as of this encounter Care Teams Relay Mechanic Relationship Specialty Start Date End Date Fausto Good P.A.-C. PCP - General 07/25/[address] [place] [phone] documented as of this encounter
--- OUTSIDE RECORDS SUMMARY | 2022-01-23 07:15 | XMS_ITS | Encounter Summary ---
:1965 Author Organization [facility] Address [address] [place] [address] Care Team Providers Name Role Phone Fausto Good P.A.-C. Primary Care Provider [phone] Reason for Referral Outpatient (Routine) - Pending Review Specialty Diagnoses / Procedures Referred By Contact Refer red To Contact Diagnoses Primary Osteoarthritis Knee Left Asad Eubanks M.D. [facility] [place] [facility] Procedures cuv-hqxd-phwcaqmo-elbow arthrocentesis: L knee joint [address] [place] [address] Referral ID Status Reason Start Date Expiration Date Visits V isits Requested Authorized [id number] Pending 07/02/2021 07/02/2022 1 1 Review Reason for Visit Reason Comments Pain Outpatient (Routine) - Pending Review Specialty Diagnoses / Procedures Referred By Contact Refer red To Contact Diagnoses Primary Osteoarthritis Knee Left Asad Eubanks M.D. [facility] [place] [facility] Procedures ORS Non-Guided aspiration/injection [address] [place] [address] Referral ID Status Reason Start Date Expiration Date Visits V isits Requested Authorized [id number] Pending 06/06/2021 06/06/2022 3 3 Review Encounter Details Date Type Department Care Team Description 07/02/2021 Procedure visit Department of Yeni Eubanks Ost eoarthritis Orthopedic Surgery Asad G, M.D. Knee Left (Primary Dx) in [place], [address] [place], [place] [address] [address] [place], [place] [phone] (Work) [phone] Social History Tobacco Use Types Packs/Day Years [...] or relatives? How often do you attend islam or Never 2021 scientologist services? Do you belong to any clubs or No 02/16/2021 organizations such as islam groups, unions, fraternal or athletic groups, or [...] encounter Procedure Notes Asad Eubanks M.D. - 07/02/2021 2:15 PM CDTAssociated Order(s): egv-kaif-yoximzea-elbow arthrocentesis: L knee joint Post-Procedure Diagnose(s): Primary Osteoarthritis Knee Left Knee site- L knee joint : injection only Date/Time: 07/02/2021 7:03 AM Performed by: Asad Eubanks M.D. Authorized [...] needed for comfort documented in this encounter Miscellaneous Notes Addendum Note - Pilar Schwab, L.P.NFarzana - 07/02/2021 2:15 PM CDT Addended by: PILAR SCHWAB on: 07/02/2021 01:55 PM Modules accepted: Orders documented in this encounter Plan of Treatment Not on filedocumented as of this encounter Procedures Procedure Name Priority Date/Time Associated Diagnosis Comme nts ORS NON-GUIDED Routine 07/02/2021 1:48 PM Primary Osteoarthrit is ASPIRATION/INJECTI CDT Knee Left ON MS ARTHCS ASP/INJ Routine 07/02/2021 7:03 AM Primary Osteoarth ritis Results for this MJR JT WO US CDT Knee Left procedure are i n the results section. documented in this encounter Results MS ARTHCS ASP/INJ MJR JT WO US (07/02/2021 7:03 AM CDT) Narrative MMODAL - 07/02/2021 7:03 AM CDT Asad Eubanks M.D. ? 07/02/2021 ??1:50 PM Knee site- L knee joint : injection only Date/Time: 07/02/2021 7:03 AM Performed by: Asad Eubanks M.D. Authorized [...] Dose Rate Site sodium hyaluronate (viscosup) Given 07/02/2021 7:03 AM CDT 20 mg injection 20 mg (EUFLEXXA) 20 mg, intra-articular, One-Time Injection, Starting on Fri07/02/21 at 0703, For 1 dose documented in this encounter Additional Health Concerns Assessment Noted Time PHQ-9 Depression Total Score: 11 10/28/2018 2:28 PM CD T documented as of this encounter Care Teams Tobacco Checkout Clerk Relationship Specialty Start Date End Date Fausto Good P.A.-C. PCP - General 07/25/[address] [place] [phone] documented as of this encounter
--- OUTSIDE RECORDS SUMMARY | 2022-01-23 07:15 | XMS_ITS | Encounter Summary ---
:1965 Author Organization [facility] Address [address] [place] [address] Care Team Providers Name Role Phone Fausto Good P.A.-C. Primary Care Provider [phone] Reason for Referral Outpatient (Routine) - Closed Specialty Diagnoses / Procedures Referred By Contact Refer red To Contact Diagnoses Pain Foot Right Fausto Good P.A.-C. [facility] [place] [facility] Procedures DX Foot Right 3+ Views [address] [place] [address] Referral ID Status Reason Start Date Expiration Date Visits Requ ested Visits Authorized [id number] Closed 10/08/2021 10/08/2022 1 1 Reason for Visit Outpatient (Routine) - Closed Specialty Diagnoses / Procedures Referred By Contact Refer red To Contact Diagnoses Pain Foot Right Fausto Good P.A.-C. [facility] [place] [facility] Procedures DX Foot Right 3+ Views [address] [place] [address] Referral ID Status Reason Start Date Expiration Date Visits Requ ested Visits Authorized [id number] Closed 10/08/2021 10/08/2022 1 1 Encounter Details Date Type Department Care Team Description 10/08/2021 Hospital Encounter Department of Fausto Good Pai n Foot Right Radiology in [place], [place] [address] [place] [phone] [phone] Social History Tobacco Use Types Packs/Day Years [...] or relatives? How often do you attend mormonism or Never 2021 latter-day services? Do you belong to any clubs or No 02/16/2021 organizations such as mormonism groups, unions, fraternal or athletic groups, or [...] place to sleep or slept in a retirement (including now)? Education Answer Date Recorded What [...] 0.3 mL (0.3 mg 1 each 1 2 10/18/2021 mg/0.3 mL injection total) intramuscularly syringe as needed for anaphylaxis. Inject into the thigh. levothyroxine Take 1 tablet (137 mcg 90 tablet 3 10/08/2021 10/18/2021 (SYNTHROID, total) by mouth daily. LEVOTHROID) 137 mcg tablet documented as of this encounter Plan of Treatment Not on filedocumented as of this encounter Procedures Procedure Name Priority Date/Time Associated Comments Diagnosis DX FOOT RIGHT 3+ RAD - Routine 10/08/2021 3:46 Pain Foot Right Resu lts for this VIEWS (most inpatients PM CDT procedure a re in and all the results outpatients) section. documented in this encounter Results DX Foot Right 3+ [...] fracture. Fausto Good P.A.-C. IMG DIAGNOSTIC IMAGING PROCE YARA documented in this encounter Visit Diagnoses Diagnosis Pain Foot Right documented in this encounter Additional Health Concerns Assessment Noted Time PHQ-9 Depression Total Score: 7 08/23/2021 2:57 PM CDT documented as of this encounter Care Teams Pier Hand Relationship Specialty Start Date End Date Fausto Good P.A.-C. PCP - General 07/25/16 [address] [place] [phone] documented as of this encounter
--- OUTSIDE RECORDS SUMMARY | 2022-01-23 07:15 | XMS_ITS | Encounter Summary ---
:1965 Author Organization [facility] Address [address] [place] [address] Care Team Providers Name Role Phone Fausto Good P.A.-C. Primary Care Provider [phone] Reason for Referral Outpatient (Routine) - Authorized Specialty Diagnoses / Procedures Referred By Contact Refer red To Contact Diagnoses Abnormal Mammogram Fausto Good P.A.-C. [facility] [place] [facility] Procedures BI Ultrasound Breast Focused Right [address] [place] [address] Referral ID Status Reason Start Date Expiration Date Visits V isits Requested Authorized [id number] Authorized 10/04/2021 10/04/2022 1 1 Reason for Visit Outpatient (Routine) - Authorized Specialty Diagnoses / Procedures Referred By Contact Refer red To Contact Diagnoses Abnormal Mammogram Fausto Good P.A.-C. [facility] [place] [facility] Procedures BI Ultrasound Breast Focused Right [address] [place] [address] Referral ID Status Reason Start Date Expiration Date Visits V isits Requested Authorized [id number] Authorized 10/04/2021 10/04/2022 1 1 Encounter Details Date Type Department Care Team Description 10/31/2021 Hospital Encounter Department of Latisha Abnormal Mammogram Radiology in [place], [place] 225 [facility] [address] [place], [place] [phone] Social History Tobacco Use Types Packs/Day Years [...] or relatives? How often do you attend mosque or Never 2021 adventist services? Do you belong to any clubs or No 02/16/2021 organizations such as mosque groups, unions, fraternal or athletic groups, or [...] place to sleep or slept in a fpc (including now)? Education Answer Date Recorded What [...] by mouth daily as needed for allergies. EPINEPHrine 0.3 Inject 0.3 mL (0.3 mg 1 each 1 2 mg/0.3 mL injection total) intramuscularly syringe as needed for anaphylaxis. Inject into the thigh. fluticasone Administer 2 sprays 48 g 3 08/23/2021 propionate (FLONASE) into each nostril 50 mcg/actuation daily. nasal spray levothyroxine Take 1 tablet (137 mcg 90 tablet 3 10/18/2021 (SYNTHROID, total) by mouth daily. LEVOTHROID) 137 mcg tablet lisinopril-hydroCHLOR Take 2 tablets by mouth 180 tablet 3 0 08/23/2021 08/23/2022 Othiazide daily. (PRINZIDE,ZESTORETIC) 20-12.5 mg per tablet documented as of this encounter Plan of Treatment Scheduled Orders Name Type Priority Associated Order Schedule Diagnoses BI Ultrasound Imaging RAD - Routine (most Abnormal Mammogram O nce for 1 Breast Focused inpatients and all Occurre nces starting Right outpatients) 10/31/2021 unti l 10/31/2021 documented as of this encounter Visit Diagnoses Diagnosis Abnormal Mammogram documented in this encounter Additional Health Concerns Assessment Noted Time PHQ-9 Depression Total Score: 7 08/23/2021 2:57 PM CDT documented as of this encounter Care Teams Grocery Store Manager Relationship Specialty Start Date End Date Fausto Good P.A.-C. PCP - General 07/25/[address] [place] [phone] documented as of this encounter
--- OUTSIDE RECORDS SUMMARY | 2022-01-23 07:15 | XMS_ITS | Encounter Summary ---
:1965 Author Organization [facility] Address [address] [place] [address] Care Team Providers Name Role Phone Fausto Good P.A.-C. Primary Care Provider [phone] Encounter Details Date Type Department Care Team Description 10/09/2021 Orders Only Department of Family Fausto Good [facility] Cancer Colon Medicine, [place] [facility], in [address] [address] [place], [place] [phone] (Work) [phone] Social History Tobacco Use Types Packs/Day Years [...] or relatives? How often do you attend tenriism or Never 2021 mormonism services? Do you belong to any clubs or No 02/16/2021 organizations such as tenriism groups, unions, fraternal or athletic groups, or [...] to pay for the very basics like [employer] hat hard 02/16/2021 food, housing, medical care, [...] place to sleep or slept in a long-term (including now)? Education Answer Date Recorded What is the highest level of school you have Some college, n o degree 09/27/2018 completed or the highest degree you have received? Sex Assigned at Date Recorded Female 10/01/2017 7:47 AM CDT documented as of this encounter Plan of Treatment Pending Results Name Type Priority Associated Diagnoses Date/Ti me Santos-Sent Out Lab Lab Routine Screening Cancer C olon 10/09/2021 2:01 AM CDT documented as of this encounter Visit Diagnoses Diagnosis Screening Cancer Colon documented in this encounter Additional Health Concerns Assessment Noted Time PHQ-9 Depression Total Score: 7 08/23/2021 2:57 PM CDT documented as of this encounter Care Teams Core Composer Feeder Relationship Specialty Start Date End Date Fausto Good P.A.-C. PCP - General 07/25/[address] [place] [phone] documented as of this encounter
--- OUTSIDE RECORDS SUMMARY | 2022-01-23 07:15 | XMS_ITS | Clinical Summary ---
:1965 Author Organization [facility] Address [address] [place] [address] Care Team Providers Name Role Phone Fausto Good P.A.-C. Primary Care Provider [phone] Source Comments Patient records contain information from all sites at [facility]. For routine questions regarding patient records, call [phone] during business hours, M-F 8:00 AM - 5:00 PM Central Time. Record requests for emergency care only can be directed to [phone] at any time.[facility] Allergies Active Allergy Reactions Severity Noted Date Comments Amoxicillin Hives 10/09/2006 Cefaclor Hives 10/09/2006 Cefprozil Hives, Anaphylaxis 04/17/2007 Other jerod ction(s): Throat Swelling/Closin g Cefuroxime Other (see comments) 04/17/2007 Cephalosporins Hives, Other (see 04/22/2013 Other re action(s): comments) Throat Swelling/Closin g Iodinated Contrast Media Other (see comments) 04/17/19 11 Iodine Hives, Other (see 04/22/2013 Other reac tion(s): comments) Throat Swelling/Closin g Lemon Juice Hives, Other (see 04/22/2013 Other reac tion(s): comments) Throat Swelling/Closin g [place] Hives, Other (see 04/22/2013 Other reac tion(s): comments) Throat Swelling/Closin g Penicillins Other (see comments), 04/16/2010 Other reaction(s): Hives Throat Swelling/Closin g Shellfish Containing Anaphylaxis 10/09/2006 Products Tree Nut Shortness of breath, 07/08/2009 Other r eaction(s): Hives Throat Swelling/Closin g Welches nuts- ?? Use these nuts to m radha roth Patient carries Epinephrine pen . Medications Medication Sig Dispensed Refills Start Date End Date Status amLODIPine Take 1 tablet (10 mg 90 tablet 3 08/23/2021 Active (NORVASC) 10 mg total) by mouth tablet daily. lisinopril-hydroCHL Take 2 tablets by 180 tablet 3 08/23/2021 Active OROthiazide mouth daily. 3 (PRINZIDE,ZESTORETI C) 20-12.5 mg per tablet cetirizine (ZyrTEC) Take 1 tablet (10 mg 90 tablet 3 2 Active 10 mg tablet total) by mouth daily as needed for allergies. fluticasone Administer 2 sprays 48 g 3 08/23/2021 Active propionate into each nostril (FLONASE) 50 daily. mcg/actuation nasal spray EPINEPHrine 0.3 Inject 0.3 mL (0.3 mg 1 each 1 10/18/2021 Active mg/0.3 mL injection total) syringe intramuscularly as needed for anaphylaxis. Inject into the thigh. levothyroxine Take 1 tablet (137 90 tablet 3 10/18/2021 Active (SYNTHROID, mcg total) by mouth LEVOTHROID) 137 mcg daily. tablet Active Problems Problem Noted Date Hypothyroidism 08/23/2021 Migraine Headache 07/10/2011 Hypertension Essential Primary 08/12/2008 Resolved Problems Problem Noted Date Resolved Date Pain Knee Left 03/21/2021 03/21/2021 Graves' Hyperthyroidism 12/01/2018 08/23/2021 Urticaria Acute 11/10/2017 08/25/2020 Angioedema Acquired Personal History 11/10/2017 Hyperthyroidism 09/26/2017 01/01/2019 Depression Major 02/07/2009 09/26/2017 Hypertension 03/08/2008 09/26/2017 Asthma Mild Intermittent 10/30/2007 09/26/2017 Gastroesophageal Reflux Disease NOS 10/09/200610/11 Encounters Date Type Specialty Care Team Description 10/31/2021 Hospital Encounter Radiology Fausto Good P.A. -C. Abnormal Mammogram 10/31/2021 Hospital Encounter Radiology Fausto Good P.A. -C. Abnormal Mammogram from Last 3 Months Immunizations Name Administration Dates Next Due Influenza (IM) Preservative Free 02/07/2009 PPSV23 10/08/2021 (Deferred: Patient decision), 08/25/2020 RZV (SHINGRIX) 10/08/2021 (Deferred: Patient decision), 08/25/2020 SARS-COV-2 (COVID-19) - MODERNA 06/23/2020, 05/26/2020 SARS-COV-2 (COVID-19) - PFIZER (12 10/08/2021 (Deferred: Pat ient decision) years or older) Td Preservative Free (TENIVAC, 02/18/2000 DECAVAC) Tdap 08/25/2020, 04/16/2010 Family History Patient is adopted Medical History Relation Name Comments Heart attack Mother Relation Name Status Comments Mother Social History Tobacco Use Types Packs/Day Years [...] or relatives? How often do you attend confucianist or Never 2021 shinto services? Do you belong to any clubs or No 02/16/2021 organizations such as confucianist groups, unions, fraternal or athletic groups, or [...] place to sleep or slept in a longterm (including now)? Education Answer Date Recorded What is the highest level of school you have Some college, n o degree 09/27/2018 completed or the highest degree you have received? Sex Assigned at Date Recorded Female 10/01/2017 7:47 AM CDT Last Filed Vital Signs Vital Sign Reading Time Taken Comments Blood Pressure 115/77 10/08/2021 2:24 PM average of 3 CDT Pulse 79 10/08/2021 2:24 PM CDT Temperature 35.9 ??C (96.7 ??F) 10/08/2021 2:24 PM CDT Respiratory Rate 12 10/08/2021 2:24 PM CDT Oxygen Saturation 96% 03/21/2021 3:59 PM THERAPEUTIC MASSAGE TECHNICIAN Inhaled Oxygen Concentration - - Weight 81 kg (178 lb 9.2 oz) 10/08/2021 2:24 PM CDT Height 160 cm (5' 2.99) 10/08/2021 2:24 PM CDT Body Mass Index 31.64 10/08/2021 2:24 PM CDT Plan of Treatment Health Maintenance Due Date Last Done Comments CT Colonography 1965 Cologuard 1965 Colonoscopy 1965 Colorectal Cancer Screening 1965 FIT 1965 HIV Screening 1965 Hepatitis B Vaccines (1 of 3 - 1965 3-dose series) Hepatitis C Screening 1965 COVID-19 Vaccine (3 - Booster for 08/18/2020 06/23/2020, Moderna series) Zoster Vaccines (2 of 2) 10/20/2020 08/25/2020 Pneumococcal vaccine (0-64 years) 08/25/2021 08/25/2020 (2 - PCV) Influenza Vaccine (#1) 2021 02/07/2009 Creatinine Level 08/23/2022 08/23/2021, 03/21/2021, 08/23/2020, Additional history exists Potassium Level 08/23/2022 08/23/2021, 03/21/2021, 08/23/2020, Additional history exists Sodium Level 08/23/2022 08/23/2021, 03/21/2021, 08/23/2020, Additional history exists Thyroid Stimulating Hormone (TSH) 10/03/2022 10/03/2021, , test for thyroid function 08/23/2020, Additional history exists Office Visit for Blood Pressure 10/08/2022 10/08/2021 Check / Re-check Tobacco Cessation counseling 10/08/2022 10/08/2021 Visit: Chronic Disease, age 18+ 10/08/2022 10/08/2021 Mammogram 10/31/2022 10/31/2021, 10/03/2021, 10/26/2018, Additional history exists Cervical Cancer Screening 10/29/2023 10/28/2018, 10/28/2018 , 10/02/2015, Additional history exists Fasting Glucose for Diabetes 08/23/2024 08/23/2021, 022, Screening 08/23/2020, Additional history exists Lipid (Cholesterol) Screening 08/23/2026 08/23/2021, 2018, 10/11/2015, Additional history exists DTaP,Tdap,and Td Vaccines (3 - Td 08/25/2030 08/25/2020, , or Tdap) 02/18/2000 Depression Screening (Annual Completed 08/23/2021 PHQ-2) Medical Devices Implanted Type Area Airplane Pilot Supervisor Device Identifier Shelf Model / Expiration Serial / Date Lot Clp Hrzn Ti 6 Clp Sm Red - [id number] Hardware [facility] App [id number] 07/01/2023 [id number] / Implanted: Qty: 1 on 11/30/2018 by Jj Shah M.D. at [facility] e.g. / pins/screws/ [id number] rods Procedures Procedure Name Priority Date/Time Associated Comments Diagnosis BI BREAST DIAGNOSTIC RAD - Routine 10/31/2021 2:31 Abnormal Res ults for RIGHT WITH (most inpatients PM CDT Mammogram this proced ure TOMOSYNTHESIS and all are in the outpatients) results section. from Last 3 Months Results BI Breast Diagnostic Right with Tomosynthesis (10/31/2021 2:31 PM CDT) Anatomical Region Laterality Modality Breast, Breast Imaging RST LOS, Breast Imaging ARZ LOS, [address] st Right Mammography Imaging FLA LOS Specimen (Source) Anatomical Collection Method Collection Time Re ceived Time Location / / Volume Laterality 10/31/2021 3:12 PM CDT Impressions 10/31/2021 3:13 PM CDT No mammographic findings of malignancy. RECOMMENDATION: ??Annual Screening Mammo gram ASSESSMENT: ??BI-RADS: 1: Negative. Narrative 10/31/2021 3:13 PM CDT EXAM: ??BI BREAST DIAGNOSTIC RIGHT WITH TOMOSYNTHESIS INDICATION: ??Possible focal asymmetry r ight breast middle depth. COMPARISON: ??Studies dating back to DENSITY: ??c. The breast(s) are heteroge neously dense, which may obscure small masses. FINDINGS: ??Possible focal asymmetry res olves into normal overlapping fibroglandular tissue with the benefit of spot compression CC and MLO v iews. No suspicious features on full field ML view. Procedure Note Sha Tolbert M.D. - 10/31/2021Formatt ing of this note might be different from the original. EXAM: BI BREAST DIAGNOSTIC RIGHT WITH TO MOSYNTHESIS INDICATION: Possible focal asymmetry rig ht breast middle depth. COMPARISON: Studies dating back to 2015 DENSITY: c. The breast(s) are heterogene ously dense, which may obscure small masses. FINDINGS: Possible focal asymmetry resol ves into normal overlapping fibroglandular tissue with the benefit of spot compression CC and MLO v iews. No suspicious features on full field ML view. IMPRESSION: No mammographic findings of malignancy. RECOMMENDATION: Annual Screening Mammogr am ASSESSMENT: BI-RADS: 1: Negative. Fausto Good P.A.-C. IMG BI PROCEDURES from Last 3 Months Insurance Payer Benefit Plan Subscriber ID Effective Phone Address Typ e / Group Dates AM TRUST JOHANNA ACEVEDO [id number] 2020-Pres [phone] [address] [employer] ent [address] [place] [address] BLUE [employer] BLUE [id number] 2020-Pres [phone] [address] BLUE SHIELD ACCESS ent [id number] [place] [address] [employer] Workers Comp Self 1965 [address] [place] [phone] Advance Directives For more information, please contact: [phone] Latest Code Status on File Code Status Date Activated Date Inactivated Comments Full Code 11/30/2018 3:12 PM 12/01/2018 12:58 PM Question Answer Comments Full Code: Not Discussed Due to: Patient not available Code Status History Code Status Date Activated Date Inactivated Comments Full Code 11/30/2018 10:02 AM 11/30/2018 3:12 PM Question Answer Comments Full Code: Not Discussed Due to: Patient not available Care Teams Automatic Serging Machine Operator Relationship Specialty Start Date End Date Fausto Good P.A.-C. PCP - General 07/25/16 [address] [place] [phone]
--- OUTSIDE RECORDS SUMMARY | 2022-01-23 07:15 | XMS_ITS | Encounter Summary ---
:1965 Author Organization [facility] Address [address] [place] [address] Care Team Providers Name Role Phone Fausto Good P.A.-C. Primary Care Provider [phone] Encounter Details Date Type Department Care Team Description 08/23/2021 Hospital Encounter Department of Leandra Good Essential Primary; Laboratory Medicine Zahra Lambert Graves' Hyperthyroidism; in [address] Screening Examination Diabetes Mellitus; [place], [place] Encounter For Screening For Cardiovascular Disorders [address] [address] [place], [place] [phone] [address] (Work) [phone] Social History Tobacco Use Types Packs/Day Years [...] do you attend pentecostalism or Never 2021 shinto services? Do you [...] place to sleep or slept in a [facility] (including now)? Education Answer Date Recorded What [...] Name Priority Date/Time Associated Diagnosis Comme nts LIPID PANEL, S Routine 08/23/2021 2:07 Hypertension Essential Results for this PM CDT Primary procedure are in Graves' the results Hyperthyroidism section. Screening Examination Diabetes [facility] s Encounter For Screening For Cardiovascular Disorders THYROID-STIMULATING Routine 08/23/2021 2:07 Hypertension Essen tial Results for this HORMONE-SENSITIVE PM CDT Primary procedure are in (S-TSH) Graves' the results Hyperthyroidism section. Screening Examination Diabetes [facility] s Encounter For Screening For Cardiovascular Disorders COMPREHENSIVE Routine 08/23/2021 2:07 Hypertension Essential R esults for this METABOLIC PANEL, S/P PM CDT Primary procedure are in Graves' the results Hyperthyroidism section. Screening Examination Diabetes [facility] s Encounter For Screening For Cardiovascular Disorders documented in this encounter Results Lipid Panel (08/23/2021 2:07 PM CDT) athologist Signature Triglycerides 59 mg/dL 08/23/2021 OWAT 4:06 PM CDT Comment: ----REFERENCE VALUE---- Normal: <150 mg/dL Borderline High: 150-199 mg/dL High: 200-499 mg/dL Very High: > or =500 mg/dL Cholesterol, Total 172 mg/dL 08/23/2021 4:06 PM CD T OWAT Comment: ----REFERENCE VALUE---- Desirable: < 200 mg/dL Borderline High: 200 - 239 mg/dL High: > or = 240 mg/dL Cholesterol, LDL, Calculated 110 mg/dL 08/23/2021 4:06 PM CDT OWAT Comment: ----REFERENCE VALUE---- Desirable: <100 mg/dL Above Desirable: 100-129 mg/dL Borderline High: 130-159 mg/dL High: 160-189 mg/dL Very High: >=190 mg/dL ----ADDITIONAL INFORMATION---- LDL cholesterol calculated using the Shoemaker/NIH equation. Cholesterol, HDL 50 >=50 mg/dL 08/23/2021 4:06 PM CDT OWAT Cholesterol, Non-HDL, Calculated 122 mg/dL 022 4:06 PM CDT OWAT Comment: ----REFERENCE VALUE---- Desirable: <130 mg/dL Above Desirable: 130-159 mg/dL Borderline High: 160-189 mg/dL High: 190-219 mg/dL Very High: > or =220 mg/dL Fasting (8 HR or more) Yes 08/23/2021 3:30 P M CDT OWAT Specimen Anatomical Collection Method Collection Time Receive d Time (Source) Location / / Volume Laterality Blood (Blood, 08/23/2021 2:07 PM 08/24/19 3:30 Venous) CDT PM CDT Fausto Good P.A.-C. LAB BLOOD ADD-ON Performing Organization Address City/State/ZIP Code Phon e Number [facility]- [address] [place] [address] [place] [address] System in [place] [address] [facility] Comprehensive Metabolic Panel (08/23/2021 2:07 PM CDT) P athologist Signature Potassium, P 4.7 3.6 - 5.2 08/23/2021 OW[facility] mmol/L 4:06 PM CDT Sodium, P 141 135 - 145 08/23/2021 OW[facility] mmol/L 4:06 PM CDT Chloride, P 106 98 - 107 08/23/2021 OW[place] mmol/L 4:06 PM CDT Bicarbonate, P 25 22 - 29 08/23/2021 OW[facility] mmol/L 4:06 PM CDT Anion Gap, P 10 7 - 15 08/23/2021 OWAT 4:06 PM CDT BUN (Blood Urea 16 6 - 21 08/23/2021 OWAT Nitrogen), P mg/dL 4:06 PM CDT Creatinine 0.83 0.59 - 08/23/2021 OW[facility] 1.04 mg/dL 4:06 PM CDT eGFR-Black/Afric >90 >=60 08/23/2021 OW[facility] an Indonesian mL/min/BSA 4:06 PM CDT Comment: ----ADDITIONAL INFORMATION---- Estimated GFR calculated using the 2009 CKD_EPI creatinine equation. eGFR Non-Black/ 80 >=60 mL/min/BSA 4:06 PM CDT OWAT Comment: ----ADDITIONAL INFORMATION---- Estimated GFR calculated using the 2009 CKD_EPI creatinine equation. Calcium, Total, P 9.0 8.6 - 10.0 mg/dL 08/23/2021 4:06 PM CDT OW[facility] Glucose, P 109 70 - 140 mg/dL 08/23/2021 4:06 PM CDT O SOPHIA Protein, Total, P 6.6 6.3 - 7.9 g/dL 08/23/2021 4:06 P M CDT OW[facility] Albumin, P 3.9 3.5 - 5.0 g/dL 08/23/2021 4:06 PM CDT O SOPHIA Aspartate Aminotransferase 20 8 - 43 U/L 08/23/2021 4 :06 PM CDT OW[place] (AST), P Alkaline Phosphatase, P 82 35 - 104 U/L 08/23/2021 4: 06 PM CDT OW[facility] Alanine Aminotransferase (ALT), 15 7 - 45 U/L 022 4:06 PM CDT OWAT P Bilirubin, Total, P 0.4 <=1.2 mg/dL 08/23/2021 4:06 PM CDT OWAT Specimen Anatomical Collection Method Collection Time Receive d Time (Source) Location / / Volume Laterality Blood (Blood, 08/23/2021 2:07 PM 08/24/19 22 3:30 Venous) CDT PM CDT Fausto Good P.A.-C. LAB BLOOD ADD-ON Performing Organization Address City/State/ZIP Code Phon e Number [facility]- [address] [place] [address] [place] [address] System in [place] [address] (ABNORMAL) S-TSH (Thyroid-Stimulating Hormone - Sensitive) (08/23/2021 2:07 PM CDT) P athologist Signature TSH, Sensitive 17.3 (H) 0.3 - 4.2 08/23/2021 OW[facility] mIU/L 4:06 PM CDT Specimen Anatomical Collection Method Collection Time Receive d Time (Source) Location / / Volume Laterality Blood (Blood, 08/23/2021 2:07 PM 08/24/19 3:30 Venous) CDT PM CDT Fausto Good P.A.-C. LAB BLOOD ADD-ON Performing Organization Address City/State/ZIP Code Phon e Number [facility]- [address] [place] [address] [facility] [place] [address] System in [place] [address] documented in this encounter Visit Diagnoses Diagnosis Hypertension Essential Primary Graves' Hyperthyroidism Screening Examination Diabetes Mellitus Encounter For Screening For Cardiovascul ar Disorders documented in this encounter Additional Health Concerns Assessment Noted Time PHQ-9 Depression Total Score: 7 08/23/2021 2:57 PM CDT documented as of this encounter Care Teams Water Softener Servicer Relationship Specialty Start Date End Date Fausto Good P.A.-C. PCP - General 07/25/[address] [place] [phone] documented as of this encounter
--- OUTSIDE RECORDS SUMMARY | 2022-01-23 07:15 | XMS_ITS | Encounter Summary ---
:1965 Author Organization [facility] Address [address] [place] [address] Care Team Providers Name Role Phone None, Pcp Primary Care Provider Unavailable Encounter Details Date Type Department Care Team Description 11/27/2020 [facility] Encounters for blood and uri ne [address] testing [place], [place] [address] Social History Tobacco Use Types Packs/Day Years Used Date Smoking Tobacco: Never Assessed Sex Assigned at Date Recorded Not on file documented as of this encounter Progress Notes Belle Chaudhry MA - 11/27/2020 10:00 AM CDT Ancillary services were performed. documented in this encounter Plan of Treatment Not on filedocumented as of this encounter Visit Diagnoses Diagnosis Encounters for blood and urine testing Laboratory examination, unspecified documented in this encounter Care Teams Solvent Mixer Relationship Specialty Start Date End Date None, Pcp PCP - General Upholstery Covers Inspector 11/27/[address] [place] [phone] documented as of this encounter
--- OUTSIDE RECORDS SUMMARY | 2022-01-23 07:15 | XMS_ITS | Encounter Summary ---
:1965 Author Organization [facility] Address [address] [place] [address] Care Team Providers Name Role Phone Fausto Good P.A.-C. Primary Care Provider [phone] Reason for Referral Outpatient (Routine) - Closed Specialty Diagnoses / Procedures Referred By Contact Refer red To Contact Diagnoses Abnormal Mammogram Fausto Good P.A.-C. [facility] Region Procedures BI Breast Diagnostic Right with Tomosynthesis [address] [place] [address] Referral ID Status Reason Start Date Expiration Date Visits Requ ested Visits Authorized [id number] Closed 10/04/2021 10/04/2022 1 1 Reason for Visit Outpatient (Routine) - Closed Specialty Diagnoses / Procedures Referred By Contact Refer red To Contact Diagnoses Abnormal Mammogram Fausto Good P.A.-C. [facility] Region Procedures BI Breast Diagnostic Right with Tomosynthesis [address] [place] [address] Referral ID Status Reason Start Date Expiration Date Visits Requ ested Visits Authorized [id number] Closed 10/04/2021 10/04/2022 1 1 Encounter Details Date Type Department Care Team Description 10/31/2021 Hospital Encounter Department of Latisha Abnormal Mammogram Radiology in Humaira Lambert [place], [place] [address] [place], [place] STEPAN ALEAXNDER [phone] Social History Tobacco Use Types Packs/Day [...] or relatives? How often do you attend voodoo or Never 2021 orthodox services? Do you belong to any clubs or No 02/16/2021 organizations such as voodoo groups, unions, fraternal or athletic groups, or [...] place to sleep or slept in a usp (including now)? Education Answer Date Recorded What [...] all are in the outpatients) results section. documented in this encounter Results BI Breast Diagnostic Right with Tomosynthesis (10/31/2021 2:31 PM CDT) Anatomical Region Laterality Modality Breast, Breast Imaging RST LOS, Breast Imaging ARZ LOS, [address] Right Mammography Imaging [facility] Specimen (Source) Anatomical Collection Method Collection Time [...] middle depth. COMPARISON: ??Studies dating back to 201 6 DENSITY: ??c. The breast(s) are heteroge neously [...] middle depth. COMPARISON: Studies dating back to 2016 DENSITY: c. The breast(s) are heterogene ously [...] Negative. Fausto Good P.A.-C. IMG BI PROCEDURES documented in this encounter Visit Diagnoses Diagnosis Abnormal Mammogram documented in this encounter Additional Health Concerns Assessment Noted Time PHQ-9 Depression Total Score: 7 08/23/2021 2:57 PM CDT documented as of this encounter Care Teams Skip Load Driver Relationship Specialty Start Date End Date Fausto Good P.A.-C. PCP - General 07/25/[address] [place] [phone] documented as of this encounter
--- OUTSIDE RECORDS SUMMARY | 2022-01-23 07:15 | XMS_ITS | Clinical Summary ---
:1965 Author Organization [facility] [place] [address] Care Team Providers Name Role Phone Fausto Good Unavailable Fausto Good Primary Care Provider Allergies Active Allergy Reactions Severity Noted Date Comments Amoxicillin 04/17/2007 Cefaclor 04/17/2007 Cefuroxime 04/17/2007 Cefprozil Hives, Throat 04/17/2007 Swelling/Closing Cephalosporins Hives, Throat 04/22/2013 Swelling/Closing Iodine Hives, Throat 04/22/2013 Swelling/Closing Lemon Juice Hives, Throat 04/22/2013 Swelling/Closing [place] Hives, Throat 04/22/2013 Swelling/Closing Tree Nut Hives, Throat 04/22/2013 [place] nuts- U se these Swelling/Closing nuts to ashok e nutmeg Penicillins Hives, Throat 04/22/2013 Swelling/Closing Tree Nut Hives, Dyspnea 07/08/2009 Patient haroon es Epinephrine pen . Medications Medication Sig Dispensed Refills Start Date End Date Status amLODIPine (NORVASC) Take 10 mg by mouth 0 Active 10 mg tablet once daily. EPINEPHrine (EPIPEN) Inject 0.3 mg 0 08/25/2020 Active 0.3 mg/0.3 mL intramuscular one injection time if needed. levothyroxine Take 112 mcg by 0 08/25/2020 Active (SYNTHROID) 112 mcg mouth once daily. tablet ibuprofen (ADVIL; Take 1 tablet (600 30 Tablet 0 03/28/2021 Active MOTRIN) 600 mg mg) by mouth every 6 tabletIndications: hours if needed for Complex tear of Pain. Maximum of medial meniscus, 3200 mg in 24 hours. current injury, left knee, initial encounter CrutchIndications: For home use. 2 Each 0 03/28/2021 Active Complex tear of medial meniscus, current injury, left knee, initial encounter traMADoL (ULTRAM) 50 Take 1 tablet (50 15 Tablet 0 03/28/2021 Active mg mg) by mouth every 6 tabletIndications: hours if needed for Complex tear of Pain. medial meniscus, current injury, left knee, initial encounter Active Problems Problem Noted Date Complex tear of medial meniscus, current injury, left knee, initial 03/27/2021 encounter HTN (hypertension) 08/12/2008 Social History Tobacco Use Types Packs/Day Years Used Date Smoking Tobacco: Every Day Cigarettes 0.5 30 Smokeless Tobacco: Never Tobacco Cessation: Ready to Quit: No; Co unseling Given: No Alcohol Use Standard Drinks/Week Comments Yes 0 (1 standard drink = 0.6 oz pure alcoho l) Sex Assigned at Date Recorded Not on file Obstetrics History Last Filed Vital Signs Vital Sign Reading Time Taken Comments Blood Pressure 121/64 03/28/2021 9:00 AM IMAGING ACCOUNT MANAGER Pulse 65 03/28/2021 9:00 AM IMAGING ACCOUNT MANAGER Temperature 36.3 ??C (97.4 ??F) 03/28/2021 8:26 AM IMAGING ACCOUNT MANAGER Respiratory Rate 18 03/28/2021 9:00 AM IMAGING ACCOUNT MANAGER Oxygen Saturation 98% 03/28/2021 9:00 AM IMAGING ACCOUNT MANAGER Inhaled Oxygen Concentration - - Weight 85.8 kg (189 lb 1.6 oz) 03/28/2021 6:11 AM IMAGING ACCOUNT MANAGER Height 159 cm (5' 2.6) 03/16/2021 12:41 PM IMAGING ACCOUNT MANAGER Body Mass Index 33.93 03/16/2021 12:41 PM IMAGING ACCOUNT MANAGER Plan of Treatment Health Maintenance Due Date Last Done Comments Tdap 08/03/1978 Depression screening for age 12+ 1979 HIV for age 15-65 08/03/1982 BMI (ht and wt on same day) for age 18+ 08/03/1985 Hepatitis C screening for age 18-79 08/03/1985 Tetanus booster 1987 Pap test for age 21-65 08/03/1988 Colonoscopy through age 75 08/03/2012 Lipids for age 45-75 08/03/2012 Mammogram for age 45-75 08/03/2012 Zoster (shingles) series for age 50+ (1 of 08/03/2017 2) COVID-19 vaccine series (3 - Booster for 08/18/2020 021, 05/26/2020 Moderna series) Influenza for age 50-64 10/11/2021 Results Not on filefrom Last 3 Months Insurance Payer Benefit Plan / Subscriber ID Effective Dates Phone Addre ss Type Group WC WORKERS COMP WC AMTRUST [id number] 2020-Presen [address] [address] [place] [address] [employer] 02/11/[address] [place] (Work) [place] [address] [employer] Workers Comp Self 1965 [address] Criss,Hannah A (Home) [address] [place] [address] AVE (Work) [place] [address] Advance Directives Latest Code Status on File Code Status Date Activated Date Inactivated Comments Full Code 03/28/2021 5:57 AM 03/28/2021 11:23 AM Question Answer Comments Code Status Discussion: Not Discussed Care Teams Nurse Aide Relationship Specialty Start Date End Date Fausto Good PA PCP - General 10/11/17 Fausto Good PA 04/22/13
--- OUTSIDE RECORDS SUMMARY | 2022-01-23 07:16 | XMS_ITS | Encounter Summary ---
:1965 Author Organization [facility] Address [address] [place] [address] Care Team Providers Name Role Phone Fausto Good P.A.-C. Primary Care Provider [phone] Encounter Details Date Type Department Care Team Description 03/21/2021 Hospital Encounter Department of Latisha Complex Tear Medial Meniscus Current Injury Left Knee Subsequent; Laboratory Medicine Zahra Lambert Preoperative Exam in [address] [facility] [address] [place], [place] [phone] [address] (Work) [phone] Social History Tobacco Use Types Packs/Day Years [...] or relatives? How often do you attend yazidism or Never 2021 sikh services? Do you belong to any clubs or No 02/16/2021 organizations such as yazidism groups, unions, fraternal or athletic groups, or [...] 1 tablet (10 mg 90 tablet 3 08/2508/23/2021 10 mg tablet total) by mouth daily. EPINEPHrine 0.3 mg/0.3 Inject 0.3 mL (0.3 mg 1 each 1 10/08/2021 mL injection syringe total) intramuscularly as needed for anaphylaxis. Inject into the thigh. levothyroxine Take 1 tablet (112 mcg 90 tablet 3 08/25/2020 08/23/2021 (SYNTHROID, total) by mouth daily. LEVOTHROID) 112 mcg tablet lisinopril-hydroCHLORO Take 1 tablet by mouth 90 tablet 3 0 08/25/2020 08/23/2021 thiazide daily. (PRINZIDE,ZESTORETIC) 20-25 mg per tablet traMADoL (ULTRAM) 50 Take 1 tablet (50 mg 30 tablet 0 03/2103/26/2021 mg tabletIndications: total) by mouth every 6 Chronic Pain/Nonacute (six) hours as needed Pain for moderate pain or score 4-6 of 10 Indications: Chronic Pain/Nonacute Pain. documented as of this encounter Plan of Treatment Not on filedocumented as of this encounter Procedures Procedure Name Priority Date/Time Associated Diagnosis Comme nts CBC WITH Routine 03/21/2021 5:07 PM Complex Tear Medial Re sults for this DIFFERENTIAL, B SECURITY FIELD SUPERVISOR Meniscus Current procedur e are in Injury Left Knee the results Subsequent section. Preoperative Exam BASIC METABOLIC Routine 03/21/2021 5:07 PM Complex Tear Medial Results for this PANEL, S/P SECURITY FIELD SUPERVISOR Meniscus Current procedure a re in Injury Left Knee the results Subsequent section. Preoperative Exam documented in this encounter Results CBC with Differential, Blood (03/21/2021 5:07 PM SECURITY FIELD SUPERVISOR) P athologist Signature Hemoglobin 14.1 11.6 - 03/21/2021 FB60 15.0 g/dL 5:25 PM SECURITY FIELD SUPERVISOR Hematocrit 41.7 35.5 - 03/21/2021 FB60 44.9 % 5:25 PM SECURITY FIELD SUPERVISOR Erythrocytes 4.61 3.92 - 03/21/2021 FB60 5.13 5:25 PM SECURITY FIELD SUPERVISOR x10(12)/L MCV 90.5 78.2 - 03/21/2021 FB60 97.9 fL 5:25 PM SECURITY FIELD SUPERVISOR RBC Distrib Width 12.3 12.2 - 03/21/2021 FB60 16.1 % 5:25 PM SECURITY FIELD SUPERVISOR Platelet Count 235 157 - 371 03/21/2021 FB60 x10(9)/L 5:25 PM SECURITY FIELD SUPERVISOR Leukocytes 8.2 3.4 - 9.6 03/21/2021 FB60 x10(9)/L 5:25 PM SECURITY FIELD SUPERVISOR Neutrophils 5.09 1.56 - 03/21/2021 FB60 6.45 5:25 PM SECURITY FIELD SUPERVISOR x10(9)/L Lymphocytes 2.22 0.95 - 03/21/2021 FB60 3.07 5:25 PM SECURITY FIELD SUPERVISOR x10(9)/L Monocytes 0.76 0.26 - 03/21/2021 FB60 0.81 5:25 PM SECURITY FIELD SUPERVISOR x10(9)/L Eosinophils 0.12 0.03 - 03/21/2021 FB60 0.48 5:25 PM SECURITY FIELD SUPERVISOR x10(9)/L Basophils 0.05 0.01 - 03/21/2021 FB60 0.08 5:25 PM SECURITY FIELD SUPERVISOR x10(9)/L Specimen Anatomical Collection Method Collection Time Receive d Time (Source) Location / / Volume Laterality Blood (Blood, 03/21/2021 5:07 PM 02/09/20 22 5:17 Venous) SECURITY FIELD SUPERVISOR PM SECURITY FIELD SUPERVISOR Fausto Good P.A.-C. LAB BLOOD ADD-ON Performing Organization Address City/State/ZIP Code Phon e Number [facility] [address] [place] [address] [facility] [address] [place] [address] System in [place] [address] (ABNORMAL) Basic Metabolic Panel (03/21/2021 5:07 PM SECURITY FIELD SUPERVISOR) P athologist Signature Potassium, P 4.2 3.6 - 5.2 03/21/2021 OW[facility] mmol/L 6:22 PM SECURITY FIELD SUPERVISOR Sodium, P 135 135 - 145 03/21/2021 [facility] mmol/L 6:22 PM SECURITY FIELD SUPERVISOR Chloride, P 97 (L) 98 - 107 03/21/2021 [facility] mmol/L 6:22 PM SECURITY FIELD SUPERVISOR Bicarbonate, P 29 22 - 29 03/21/2021 [facility] mmol/L 6:22 PM SECURITY FIELD SUPERVISOR Anion Gap, P 9 7 - 15 03/21/2021 [place] 6:22 PM SECURITY FIELD SUPERVISOR BUN (Blood Urea 18 6 - 21 03/21/2021 OW[place] Nitrogen), P mg/dL 6:22 PM SECURITY FIELD SUPERVISOR Creatinine 0.73 0.59 - 03/21/2021 OW[facility] 1.04 mg/dL 6:22 PM SECURITY FIELD SUPERVISOR eGFR-Black/Afri >90 >=60 03/21/2021 OWAT can Algerian mL/min/BSA 6:22 PM SECURITY FIELD SUPERVISOR Comment: ----ADDITIONAL INFORMATION---- Estimated GFR calculated using the 2009 CKD_EPI creatinine equation. eGFR Non-Black/ >90 >=60 mL/min/BSA 03/21/2021 6:22 PM SECURITY FIELD SUPERVISOR [facility] Comment: ----ADDITIONAL INFORMATION---- Estimated GFR calculated using the 2009 CKD_EPI creatinine equation. Calcium, Total, P 9.6 8.6 - 10.0 mg/dL 03/21/2021 6:22 PM SECURITY FIELD SUPERVISOR OWAT Glucose, P 112 70 - 140 mg/dL 03/21/2021 6:22 PM SECURITY FIELD SUPERVISOR O SOPHIA Specimen Anatomical Collection Method Collection Time Receive d Time (Source) Location / / Volume Laterality Blood (Blood, 03/21/2021 5:07 PM 03/21/19 5:57 Venous) SECURITY FIELD SUPERVISOR PM SECURITY FIELD SUPERVISOR Fausto Good P.A.-C. LAB BLOOD ADD-ON Performing Organization Address City/State/ZIP Code Phon e Number [facility]- [address] [place] [address] [facility] [place] [address] System in [place] [address] documented in this encounter Visit Diagnoses Diagnosis Complex Tear Medial Meniscus Current Inj ury Left Knee Subsequent Preoperative Exam documented in this encounter Additional Health Concerns Assessment Noted Time PHQ-9 Depression Total Score: 11 10/28/2018 2:28 PM CD T documented as of this encounter Care Teams Operating Room Registered Nurse Relationship Specialty Start Date End Date Fausto Good P.A.-C. PCP - General 07/25/16 [address] [place] [phone] documented as of this encounter
--- OUTSIDE RECORDS SUMMARY | 2022-01-23 07:16 | XMS_ITS | Encounter Summary ---
:1965 Author Organization [facility] Address [address] [place] [address] Care Team Providers Name Role Phone Fausto Good P.A.-C. Primary Care Provider [phone] Reason for Referral Outpatient (Routine) - Closed Specialty Diagnoses / Procedures Referred By Contact Refer red To Contact Orthopedic Surgery Diagnoses Pain [facility]nee [facility] [address] [place] [phone] Referral ID Status Reason Start Date Expiration Date Visits Requ ested Visits Authorized [id number] Closed 12/25/2020 12/25/2021 1 1 Scheduling Instructions Ortho internal referral panel order, alfredo ging before Consult visit RNATIONAL ORGANIZER Encounter Details Date Type Department Care Team Description 12/25/2020 Orders Only Department of Family Fausto Good Pa in Knee Left Medicine, Mariela Gerardo (Primary Dx) Clinic, in [address] [facility] [address] [place], [place] [phone] [phone] (Work) [phone] Social History Tobacco Use Types Packs/Day Years [...] or relatives? How often do you attend buddhist or Never 2021 catholic services? Do you belong to any clubs or No 02/16/2021 organizations such as buddhist groups, unions, fraternal or athletic groups, or [...] Treatment Scheduled Referrals Name Type Priority Associated Order Schedule Diagnoses Orthopedic Surgery - Outpatient Referral Routine Pain Knee Lef t Expected: Knee non surgical 12/25/2020 consult (clinic) (Approximat e), Expires: 12/26/2023 documented as of this encounter Visit Diagnoses Diagnosis Pain Knee Left - Primary documented in this encounter Additional Health Concerns Assessment Noted Time PHQ-9 Depression Total Score: 11 10/28/2018 2:28 PM CD T documented as of this encounter Care Teams Supervisor Blood Relationship Specialty Start Date End Date Fausto Good P.A.-C. PCP - General 07/25/16 [address] [place] [address] documented as of this encounter
--- OUTSIDE RECORDS SUMMARY | 2022-01-23 07:16 | XMS_ITS | Encounter Summary ---
:[address] [facility] Address [address] [place] [address] Care Team Providers Name Role Phone Fausto Good P.A.-C. Primary Care Provider [phone] Reason for Referral Outpatient (Routine) - Pending Review Specialty Diagnoses / Procedures Referred By Contact Refer red To Contact Diagnoses Other Tear Medial Meniscus Current Injury Left Knee Subsequent Asad Eubanks M.D. [facility] Procedures uyx-xuyv-mftvmihz-elbow arthrocentesis: L knee joint [address] [place] [address] Referral ID Status Reason Start Date Expiration Date Visits V isits Requested Authorized [id number] Pending 05/21/2021 05/21/2022 1 1 Review Reason for Visit Reason Comments Follow-up Post-op Swelling Outpatient (Routine) - Closed Specialty Diagnoses / Procedures Referred By Contact Refer red To Contact Orthopedic Surgery Diagnoses left knee pain Asad Eubanks [facility] [place] [facility] M.DFarzana [address] [place] [address] Referral ID Status Reason Start Date Expiration Date Visits Requ ested Visits Authorized [id number] Closed 02/16/2021 02/16/2022 1 1 Encounter Details Date Type Department Care Team Description 05/21/2021 Office Visit Department of Asad Eubanks Other Tear Medial Orthopedic Surgery eduardo Pandya M.D. Meniscus Current [place], [place] [address] Injury Left Knee [address] [place], [place] Subsequent ([place] [id number] Dx) [id number] Social History Tobacco Use Types Packs/Day [...] or relatives? How often do you attend amish or Never 2021 cheondoism services? Do you belong to any clubs or No 02/16/2021 organizations such as amish groups, unions, fraternal or athletic groups, or [...] place to sleep or slept in a detention (including now)? Education Answer Date Recorded What is the highest level of school you have Some college, n o degree 09/27/2018 completed or the highest degree you have received? Sex Assigned at Date Recorded Female 10/01/2017 7:47 AM CDT documented as of this encounter Progress Notes Asad Eubanks M.D. - 05/21/2021 2:45 PM CDT HPI: Hannah returns to clinic almost 8 weeks out from a left knee arthroscopic partial medial and lateralmeniscectomy. Her knee is better but is still quite inflamed. She is still swollen. She has trouble with stairs. Most her pain is medial. PHYSICAL EXAM: Examination of her left knee reveals well-healed surgical incisions. She is neurovascular intact with good range of motion. She has a small effusion. She has tenderness over the medial joint line. ASSESSMENT AND PLAN: Hannah is almost 8 weeks out from a left knee arthroscopic partial medial and lateral meniscectomy. She was noted to have grade 4 changes medially at the time of surgery. We discussed options. She would like to proceed with a cortisone injection today. documented in this encounter Procedure Notes Asad Eubanks M.D. - 05/21/2021 2:45 PM CDTAssociated Order(s): obp-jxcz-bbncxilx-elbow arthrocentesis: L knee joint Post-Procedure Diagnose(s): Other Tear Medial Meniscus Current Injury Left Knee Subsequent Knee site- L knee joint : injection only Date/Time: 05/21/2021 2:33 PM Performed by: Asad Eubanks M.D. Authorized by: Asad Eubanks M.D. PROCEDURE DETAILS Procedure Location knee Knee site: L knee joint Site prep: patient was prepped and draped in usual sterile fashion Patient position: seated Procedural approach: anterolateral Procedure performed: injection only Needle gauge: 21 G Procedural Medication The following medications were administered at the target site(s) Local anesthetic: 8 mL lidocaine 10 mg/mL (1 %) Corticosteroid: 40 mg triamcinolone acetonide 40 mg/mL CONSENT Consent obtained: written UNIVERSAL PROTOCOL All relevant documentation and testing were reviewed and available. All required blood products, implants, devices and or special equipment were made available as applicable. Pre-procedure verificationwas conducted and the correct site was marked if required. A fire risk assessment was done as applicable. The procedural time-out was conducted prior to performing the procedure and confirmed in a procedural pause. PRE-PROCEDURE DETAILS Procedure purpose: therapeutic Indications: Pain Appropriate hand hygiene, gown, cap, mask, protective [...] Name Priority Date/Time Associated Diagnosis Comme nts RI ARTHCS ASP/INJ Routine 05/21/2021 2:33 PM Other Tear Medial Results for this MJR JT WO US CDT Meniscus Current procedure a re in Injury Left Knee the results Subsequent section. documented in this encounter Results RI ARTHCS ASP/INJ MJR JT WO US (05/21/2021 2:33 PM CDT) Narrative MMODAL - 05/21/2021 2:33 PM CDT Asad Eubanks M.D. ? 05/21/2021 ??2:34 PM Knee site- L knee joint : injection only Date/Time: 05/21/2021 2:33 PM Performed by: Asad Eubanks M.D. Authorized by: Asad Eubanks M.D. PROCEDURE DETAILS Procedure Location knee Knee site: L knee joint Site prep: patient was prepped and drape d in usual sterile fashion ?? Patient position: seated Procedural approach: anterolateral Procedure performed: injection only Needle gauge: 21 G Procedural Medication The following medications were administe red at the target site(s) Local anesthetic: 8 mL lidocaine 10 mg/m L (1 %) Corticosteroid: 40 mg triamcinolone acet onide 40 mg/mL CONSENT Consent obtained: written UNIVERSAL PROTOCOL All relevant documentation and testing w ere reviewed and available. All required blood products, implants, devic es and or special equipment were made available as applicable. Pre-proced ure verification was conducted and the correct site was marked if required. A fire risk assessment was done as applicable. The procedural time-out w as conducted prior to performing the procedure and confirmed in a procedu ral pause. PRE-PROCEDURE DETAILS Procedure purpose: therapeutic Indications: Pain Appropriate hand hygiene, gown, cap, mas k, [...] documented in this encounter Visit Diagnoses Diagnosis Other Tear Medial Meniscus Current Injur y Left Knee Subsequent - Primary documented in this encounter Administered Medications Inactive Administered Medications - up to 3 most recent administrations Medication Order MAR Action Action Date Dose Rate Site lidocaine 10 mg/mL (1 %) injection 8 Given 05/21/2021 2:33 PM CD T 8 mL mL (XYLOCAINE) 8 mL, infiltration, One-Time Injection, Starting on Fri05/21/21 at 1433, For 1 dose triamcinolone acetonide injection 40 mg Given 05/21/2021 2:33 PM CDT 40 mg (KENALOG-40) 40 mg, intra-articular, One-Time Injection, Starting on Fri05/21/21 at 1433, For 1 dose documented in this encounter Additional Health Concerns Assessment Noted Time PHQ-9 Depression Total Score: 10/28/2018 2:28 PM CD T documented as of this encounter Care Teams Director Of Business Continuity Relationship Specialty Start Date End Date Fausto Good P.A.-C. PCP - General 07/25/[address] [place] [phone] documented as of this encounter
--- OUTSIDE RECORDS SUMMARY | 2022-01-23 07:16 | XMS_ITS | Encounter Summary ---
:1965 Author Organization [facility] Address [address] [place] [address] Care Team Providers Name Role Phone Fausto Good P.A.-C. Primary Care Provider [phone] Reason for Referral Specialty Diagnoses / Procedures Referred By Contact Refer red To Contact [facility] [address] [place] [address] Referral ID Status Reason Start Date Expiration Date Visits Requ ested Visits Authorized Encounter Details Date Type Department Care Team Description 05/26/[address] [facility] er For COVID-19 Medicine, [facility] Vaccine Immunization [facility], in [facility] (Prim jeremiah Dx) [address] [address] [facility] [phone] Social History Tobacco Use Types Packs/Day Years [...] or relatives? How often do you attend rastafarian or Never 2021 methodist services? Do you belong to any clubs or No 02/16/2021 organizations such as rastafarian groups, unions, fraternal or athletic groups, or [...] Name Type Priority Associated Diagnoses Order S chedule Covid immunization Outpatient Referral Routine Encounter For E xpected: office visit Covid-19 Vaccine 06/23/2020, Subsequent; 28 days Immunization Expires: 05/27/2023 documented as of this encounter Visit Diagnoses Diagnosis Encounter For COVID-19 Vaccine Immunizat ion - Primary documented in this encounter Additional Health Concerns Assessment Noted Time PHQ-9 Depression Total Score: 11 10/28/2018 2:28 PM CD T documented as of this encounter Care Teams Compound Specialist Relationship Specialty Start Date End Date Fausto Good P.A.-C. PCP - General 07/25/16 [address] [place] [address] documented as of this encounter
--- OUTSIDE RECORDS SUMMARY | 2022-01-23 07:16 | XMS_ITS | Encounter Summary ---
:1965 Author Organization [facility] Address [address] [place] [address] Care Team Providers Name Role Phone Fausto Good P.A.-C. Primary Care Provider [phone] Reason for Referral Outpatient (Routine) - Pending Review Specialty Diagnoses / Procedures Referred By Contact Refer red To Contact Diagnoses Complex Tear Medial Meniscus Current Injury Left Knee Subsequent Juwan Hernandez P.A.-C. 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 [address] [place] [address] Referral ID Status Reason Start Date Expiration Date Visits Requ ested Visits Authorized [id number] Closed 02/16/2021 02/16/2022 1 1 Encounter Details Date Type Department Care Team Description 04/09/2021 Office Visit Department of Juwan Hernandez Complex T ear Medial Orthopedic Surgery in [place] Meniscus Current [place], [place] [address] Injury Left Knee [address] [place] Subsequent (Primary [place] [id number] Dx) [id number] Social History Tobacco Use Types [...] or relatives? How often do you attend christianity or Never 2021 mandaen services? Do you belong to any clubs or No 02/16/2021 organizations such as christianity groups, unions, fraternal or athletic groups, or [...] documented as of this encounter Progress Notes Juwan Hernandez P.A.-C. - 04/09/2021 1:00 PM CST PRIMARY CARE PROVIDER Fausto Good P.A.-C. SUBJECTIVE CHIEF COMPLAINT/REASON FOR VISIT Two week postoperative recheck of left knee arthroscopy with partial medial menisectomy and partial lateral menisectomy. HISTORY OF PRESENT ILLNESS Hannah Kahn is a very pleasant 55 y.o. year-old female who presents today for 2 week postop recheck of the above-stated procedure performed by Dr. Eubanks on 03/28/2021. Patient reports that she is doing very well. She has not started physical therapy. Denies any issues with swelling,numbness or tingling. she reports moderate pain. Continues to use her tramadol and prescription strength ibuprofen. She states she is bothered most by sharp pain when she is laying down at night as well as achy pain ascending and descending stairs. No fever chills night sweats, nausea, or vomiting. OBJECTIVE PHYSICAL EXAMINATION GENERAL: This is a well-nourished, well-developed, female. Alert and oriented x3 in no acute distress. Cooperative and responds appropriately to all questions. MUSCULOSKELETAL: Examination of the left knee reveals 2 well-healing, well- approximated, portal incision sites. These are clean, dry, and intact without signs of infection. Neurovascularly intact distally. Capillary refill less than 2 seconds. Demonstrates full knee range of motion. ASSESSMENT / PLAN IMPRESSION/REPORT/PLAN #1 Complex Tear Medial Meniscus Current Injury Left Knee Subsequent Two weeks status post left knee arthroscopy with partial medial menisectomy and partial lateral menisectomy performed by Dr. Eubanks on 03/28/2021. PLAN: Hannah Kahn is doing well. At this point, we did discuss that patient can continue anti-inflammatories such as ibuprofen or Aleve in addition to Tylenol or pain medications. This should allow her to cut down on narcotic pain medications. We did recommend continuing with the icing.She will plan to return to work on 04/16/2021. All questions were answered to the patient's satisfaction. We will plan on seeing patient back in [address] Eubanks. TROSLAG WELDING MACHINE OPERATOR documented in this encounter Procedure Notes Kelley Worley L.P.N. - 04/09/2021 1:00 PM CSTAssociated Order(s): suture removal Post-Procedure Diagnose(s): Complex Tear Medial Meniscus Current Injury Left Knee Subsequent Suture removal Date/Time: 04/09/2021 1:28 PM Performed by: Kelley Worley L.P.N. Authorized by: Juwan Hernandez P.A.-C. Care team members present 1. Kelley Worley L.P.N. PROCEDURE DETAILS Wound appearance: No signs of infection and good approximation of wound edges Number of sutures removed: 2 CONSENT Consent obtained: verbal Consent given by: patient The benefits, risks and alternatives to the procedure and the potential need for sedation or anesthesia as well as the names, roles, and responsibilities of healthcare team members performing significant interventional tasks were discussed with the patient and/or decision maker. UNIVERSAL PROTOCOL All relevant documentation and testing were reviewed and available. All required blood products, implants, devices and or special equipment were made available as applicable. Pre-procedure verificationwas conducted and the correct site was marked if required. A fire risk assessment was done as applicable. The procedural time-out was conducted prior to performing the procedure and confirmed in a procedural pause. PRE PROCEDURE DETAILS Sutures were placed at [facility] facility: no Indicaton: scheduled suture removal Location: Lower extremity Lower extremity location: Knee Knee location: Left knee SEDATION / ANESTHESIA Anesthesia method: none POST PROCEDURE DETAILS Procedure completed successfully: yes Complications: no immediate complications TROSLAG WELDING MACHINE OPERATOR documented in this encounter Plan of Treatment Not on filedocumented as of this encounter Procedures Procedure Name Priority Date/Time Associated Diagnosis Comme nts SUTURE REMOVAL Routine 04/09/2021 1:28 PM Complex Tear Medial Results for this ELECTROSLAG WELDING MACHINE OPERATOR Meniscus Current procedure a re in the Injury Left Knee results sec tion. Subsequent documented in this encounter Results SUTURE REMOVAL (04/09/2021 1:28 PM ELECTROSLAG WELDING MACHINE OPERATOR) Narrative [facility] - 04/09/2021 1:28 PM ELECTROSLAG WELDING MACHINE OPERATOR Kelley Worley L.P.N. ? 04/09/2021 ??1:29 PM Suture removal Date/Time: 04/09/2021 1:28 PM Performed by: Kelley Worley L.P.N. Authorized by: Juwan Hernandez P.A.-C. Care team members present 1. Kelley Worley L.P.N. PROCEDURE DETAILS Wound appearance: ??No signs of infectio n and good approximation of wound edges Number of sutures removed: ??2 CONSENT Consent obtained: verbal Consent given by: patient The benefits, risks and alternatives to the procedure and the potential need for sedation or anesthesia as well as the names, roles, and responsibilities of healthcare team memb ers performing significant interventional tasks were discussed with the patient and/or decision maker. UNIVERSAL PROTOCOL All relevant documentation and testing [...] and confirmed in a procedu ral pause. PRE PROCEDURE DETAILS Sutures were placed at [employer] facility: no ?? Indicaton: scheduled suture removal ?? Location: ??Lower extremity Lower extremity location: ??Knee Knee location: ??Left knee SEDATION / ANESTHESIA Anesthesia method: none POST PROCEDURE DETAILS Procedure completed successfully: yes ?? Complications: no immediate complication s ?? Juwan Hernandez P.A.-C. PROCEDURE/MINOR SURGICAL ORD ERABLES Performing Organization Address City/State/ZIP Code Phon e Number MMODAL MMODAL NA documented in this encounter Visit Diagnoses Diagnosis Complex Tear Medial Meniscus Current Inj ury Left Knee Subsequent - Primary documented in this encounter Additional Health Concerns Assessment Noted Time PHQ-9 Depression Total Score: 11 10/28/2018 2:28 PM CD T documented as of this encounter Care Teams Brick Unloader Tender Relationship Specialty Start Date End Date Fausto Good P.A.-C. PCP - General 07/25/[address] [place] [phone] documented as of this encounter
--- OUTSIDE RECORDS SUMMARY | 2022-01-23 07:16 | XMS_ITS | Encounter Summary ---
:1965 Author Organization [facility] Address [address] [place] [address] Care Team Providers Name Role Phone Fausto Good P.A.-C. Primary Care Provider [phone] Reason for Referral Outpatient (Routine) - Closed Specialty Diagnoses / Procedures Referred By Contact Refer red To Contact Diagnoses Complex Tear Medial Meniscus Current Injury Left Knee Subsequent Preoperative Exam Fausto Good P.A.-C. [facility] [place] [facility] Procedures ECG [address] [place] [address] Referral ID Status Reason Start Date Expiration Date Visits Requ ested Visits Authorized [id number] Closed 03/21/2021 03/21/2022 1 1 PROCESS TECHNICIAN Reason for Visit Outpatient (Routine) - Closed Specialty Diagnoses / Procedures Referred By Contact Refer red To Contact Diagnoses Complex Tear Medial Meniscus Current Injury Left Knee Subsequent Preoperative Exam Fausto Good P.A.-C. [facility] [place] [facility] Procedures ECG [address] [place] [address] Referral ID Status Reason Start Date Expiration Date Visits Requ ested Visits Authorized [id number] Closed 03/21/2021 03/21/2022 1 1 Encounter Details Date Type Department Care Team Description 03/21/2021 Hospital Encounter Department of Latisha Complex Tear Medial Meniscus Current Injury Left Knee Subsequent; Laboratory Medicine Fausto, P.A. -C. Preoperative Exam in [place], [address] [place] [address] [address] [address] [place] [phone] (Work) [phone] Social History Tobacco Use Types Packs/Day Years [...] or relatives? How often do you attend mandaen or Never 2021 hindu services? Do you belong to any clubs or No 02/16/2021 organizations such as mandaen groups, unions, fraternal or athletic groups, or [...] Name Priority Date/Time Associated Diagnosis Comme nts ECG Routine 03/21/2021 5:12 PM Complex Tear Medial Re sults for this WET PROCESS TECHNICIAN Meniscus Current procedure a re in the Injury Left Knee results sec tion. Subsequent Preoperative Exam documented in this encounter Results ECG 12 Lead (03/21/2021 5:12 PM WET PROCESS TECHNICIAN) P athologist Signature Ventricular Rate 58 BPM MUSE ECG/Min [place] Interval 144 ms MUSE QRSD Interval 94 ms MUSE QT Interval 444 ms MUSE QTC Interval 435 ms MUSE P [place] 67 degrees MUSE R [place] 48 degrees MUSE T Wave [place] 21 degrees MUSE Specimen Anatomical Collection Method Collection Time Receive d Time (Source) Location / / Volume Laterality 03/21/2021 5:12 PM 2 5:33 WET PROCESS TECHNICIAN PM WET PROCESS TECHNICIAN Impressions MUSE - 03/21/2021 5:33 PM WET PROCESS TECHNICIAN Sinus bradycardia Low anterior forces No previous ECGs available Reviewed by SUZY Manning Narrative This result has an attachment that is no t available. Procedure Note Humberto Armijo M.D. - 02/09/2022Formatti ng of this note might be different from the original. IMPRESSION: Sinus bradycardia Low anterior forces No previous ECGs available Reviewed by SUZY Manning Fausto Good P.A.-C. ECG ORDERABLES Performing Organization Address City/State/ZIP Code Phon e Number MUSE MUSE NA documented in this encounter Visit Diagnoses Diagnosis Complex Tear Medial Meniscus Current Inj ury Left Knee Subsequent Preoperative Exam documented in this encounter Additional Health Concerns Assessment Noted Time PHQ-9 Depression Total Score: 11 10/28/2018 2:28 PM CD T documented as of this encounter Care Teams Systems Analyst Engineer Relationship Specialty Start Date End Date Fausto Good P.A.-C. PCP - General 07/25/[address] [place] [phone] documented as of this encounter
--- OUTSIDE RECORDS SUMMARY | 2022-01-23 07:16 | XMS_ITS | Encounter Summary ---
:1965 Author Organization [facility] Address [address] [place] [address] Care Team Providers Name Role Phone Fausto Good P.A.-C. Primary Care Provider [phone] Encounter Details Date Type Department Care Team Description 01/03/2021 Orders Only [facility] Fausto Good P.A.-C. [address] [place] [phone] (Wo rk) Social History Tobacco Use [...] or relatives? How often do you attend restoration or Never 2021 sabianist services? Do you belong to any clubs or No 02/16/2021 organizations such as restoration groups, unions, fraternal or athletic groups, or [...] place to sleep or slept in a fci (including now)? Education Answer Date Recorded What [...] documented as of this encounter Care Teams Real Estate Salesperson Relationship Specialty Start Date End Date Fausto Good P.A.-C. PCP - General 07/25/16 [address] [place] [phone] documented as of this encounter
--- OUTSIDE RECORDS SUMMARY | 2022-01-23 07:16 | XMS_ITS | Encounter Summary ---
:1965 Author Organization [facility] Address [address] [place] [address] Care Team Providers Name Role Phone Fausto Good P.A.-C. Primary Care Provider [phone] Encounter Details Date Type Department Care Team Description 06/23/2020 Immunization Department of [facility] Chance Medina For COVID-19 Medicine, Ryland Peña M.D. Vaccine Immunization Building, in [address] [place] [address] [address] [facility] [address] [place], [place] [phone] (Work) [phone] Social History Tobacco Use Types Packs/Day Years [...] or relatives? How often do you attend holiness or Never 2021 restorationism services? Do you belong to any clubs or No 02/16/2021 organizations such as holiness groups, unions, fraternal or athletic groups, or [...] to pay for the very basics like [employer] hat hard 02/16/2021 food, housing, medical care, [...] place to sleep or slept in a [place] (including now)? Education Answer Date Recorded What is the highest level of school you have Some college, n o degree 09/27/2018 completed or the highest degree you have received? Sex Assigned at Date Recorded Female 10/01/2017 7:47 AM CDT documented as of this encounter Plan of Treatment Not on filedocumented as of this encounter Visit Diagnoses Diagnosis Encounter For COVID-19 Vaccine Immunizat ion documented in this encounter Additional Health Concerns Assessment Noted Time PHQ-9 Depression Total Score: 11 10/28/2018 2:28 PM CD T documented as of this encounter Care Teams Repair Welder Relationship Specialty Start Date End Date Fausto Good P.A.-C. PCP - General 07/25/[address] [place] [phone] documented as of this encounter
--- OUTSIDE RECORDS SUMMARY | 2022-01-23 07:16 | XMS_ITS | Encounter Summary ---
:1965 Author Organization [facility] Address [address] [place] [address] Care Team Providers Name Role Phone Fausto Good P.A.-C. Primary Care Provider [phone] Encounter Details Date Type Department Care Team Description 03/28/2021 Orders Only [facility] Pharmacy - Veronica Dhillon [address] [place] [address] Social History Tobacco Use Types Packs/Day Years [...] or relatives? How often do you attend jain or Never 2021 synagogue services? Do you belong to any clubs or No 02/16/2021 organizations such as jain groups, unions, fraternal or athletic groups, or [...] place to sleep or slept in a jail (including now)? Education Answer Date Recorded What [...] documented as of this encounter Care Teams Respiratory Therapy Technician Relationship Specialty Start Date End Date Fausto Good P.A.-C. PCP - General 07/25/[address] [place] [phone] documented as of this encounter
--- OUTSIDE RECORDS SUMMARY | 2022-01-23 07:16 | XMS_ITS | Encounter Summary ---
:1965 Author Organization [facility] Address [address] [place] [address] Care Team Providers Name Role Phone Fausto Good P.A.-C. Primary Care Provider [phone] Reason for Referral Outpatient (Routine) - Closed Specialty Diagnoses / Procedures Referred By Contact Refer red To Contact Family Medicine [facility]. A.-[facility]. [facility] [address] [phone] Referral ID Status Reason Start Date Expiration Date Visits Requ ested Visits Authorized [id number] Closed 08/25/2020 08/25/2021 1 1 Reason for Visit Reason Comments Follow-up lab results Outpatient (Routine) - Closed Specialty Diagnoses / Procedures Referred By Contact Refer red To Contact Family Fausto Campbell P. A.-C. [facility] [address] [phone] Referral ID Status Reason Start Date Expiration Date Visits Requ ested Visits Authorized [id number] Closed 09/30/2019 09/29/2020 1 1 Encounter Details Date Type Department Care Team Description 08/25/2020 Office Visit Department of Ed Lam Essential Primary (Primary Dx); Medicine, Zahra Crow Graves' Hyperthyroidism; Clinic, in [address] Examination Adult; STEPAN Pulliam Migraine Headache; [address] [address] Screening Examination Diabetes Mellitus; STEPAN BUSTILLOS [phone] Encounter For Screening For Cardiovascular Disorders; [phone] (Work) Screening Cancer Colon [phone] Social History Tobacco Use Types Packs/Day Years [...] or relatives? How often do you attend jewish or Never 2021 mormon services? 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 - 08/25/2020 9:30 AM CDT CHIEF COMPLAINT / REASON FOR VISIT Hannah Kahn is a 55 y.o. female who presents for evaluation of Follow-up (lab results). HISTORY OF PRESENT ILLNESS Hannah and physical. She has hypothyroidism and is a little under supplemented. Her TSH is just slightly elevated. For the most part she is doing well she and her bought a new house and has been very happy with this it is kept her busy. 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 Migraine Headache ??? Angioedema Acquired Personal History ??? Hypertension Essential Primary ??? Graves' Hyperthyroidism PAST SURGICAL HISTORY: Past Surgical History: Procedure Laterality Date ??? CHOLECYSTECTOMY N/A Cholecystectomy ??? CHOLECYSTECTOMY ??? DILATATION AND CURETTAGE ??? ENDOMETRIAL THERMAL ABLATION N/A 05/20/2003 Endometrial ablation, thermal, without hysteroscopic guidance.. ??? GALLBLADDER SURGERY ??? HERNIA REPAIR ??? OTHER SURGICAL HISTORY ??? THYROIDECTOMY - TOTAL N/A 11/30/2018 Procedure: THYROIDECTOMY, TOTAL.; Surgeon: Elicia Shah M.D.; Location: [facility] OR ??? TONSILLECTOMY ??? TONSILLECTOMY AND ADENOIDECTOMY N/A Tonsillectomy and adenoidectomy ??? TUBAL LIGATION SOCIAL HISTORY: Social History Tobacco Use ??? Smoking status: Current Every Day Smoker Packs/day: 0.50 Years: 35.00 Pack years: 17.50 Types: Cigarettes, E-cigarettes Start date: 02/10/1982 ??? Smokeless tobacco: Never Used Substance Use Topics ??? Alcohol use: Yes Types: 6 Cans of beer per week Comment: Daily caffeine ??? Drug use: No FAMILY HISTORY: Family History Adopted: Yes Problem Relation Age of Onset ??? Heart attack Mother REVIEW OF SYSTEMS: General: Denies recent fever, weight loss, or extreme fatigue. Eyes: Denies double vision or sudden loss of vision. ENT: Denies sore throat, runny nose, ear pain, or hearing loss. Heart:: Denies chest pain or irregular heartbeats. Respiratory: Denies cough, wheezing, shortness of breath. Digestion: Denies nausea, vomiting, diarrhea or constipation. Genito/Urinary: Denies frequent or painful urination. Skin: Denies rash, sores, excessive bruising, or change of a mole. Nerves/Brain: Denies headache, persistent weakness or numbness. Endocrine: Denies excessive thirst or urination, cold or heat intolerance. Blood: Denies unusual bruising or bleeding or enlarged lymph nodes. MEDICATIONS: Current Outpatient Medications Medication Sig Dispense Refill ??? amLODIPine (NORVASC) 10 mg tablet Take 1 tablet (10 mg total) by mouth daily. 90 tablet 3 ??? cyclobenzaprine (FLEXERIL) 10 mg tablet Take 1 tablet (10 mg total) by mouth 3 (three) times a day as needed for muscle spasms. 30 tablet 11 ??? EPINEPHrine 0.3 mg/0.3 mL injection syringe Inject 0.3 mL (0.3 mg total) intramuscularly as needed for anaphylaxis. Inject into the thigh. 1 each 1 ??? lisinopril-hydroCHLOROthiazide (PRINZIDE,ZESTORETIC) 20-25 mg per tablet Take 1 tablet by mouth daily. 90 tablet 3 ??? levothyroxine (SYNTHROID, LEVOTHROID) 112 mcg tablet Take 1 tablet (112 mcg total) by mouth daily. 90 tablet 3 No current facility-administered medications for this visit. ALLERGIES: Allergies Allergen Reactions ??? Amoxicillin Hives ??? [...] (see comments) Other reaction(s): Throat Swelling/Closing ??? [place] Hives and Other (see comments) Other reaction(s): Throat Swelling/Closing ??? Penicillins Other (see comments) and Hives Other reaction(s): Throat Swelling/Closing ??? Shellfish Containing Products Anaphylaxis ??? Tree Nut Shortness of breath and Hives Other reaction(s): Throat Swelling/Closing [place] nuts- Use these nuts to make nutmeg Patient carries Epinephrine pen. OBJECTIVE Vitals: 08/25/20 0908 BP: 136/78 BP Location: Right arm Patient Position: Sitting Cuff Size: Large Pulse: 84 Temp: 36.2 ??C Weight: 83 kg Body mass index is 32.83 kg/m??. PHYSICAL EXAMINATION General: Patient appears in no acute distress. ENT: TMs no erythema. Throat no erythema. Neck: No lymphadenopathy. No thyroid masses. Heart: Regular rate and rhythm. No murmurs. Lungs: Clear to auscultation. Abdomen: Soft and nontender to palpation. Breasts: No lumps or masses appreciated IMPRESSION / REPORT / PLAN #1 Hypertension Essential Primary Blood pressure is well controlled. Her potassium is just slightly elevated will continue on lisinopril hydrochlorothiazide I will recheck her potassium when I recheck her TSH in 3 months #2 Graves' Hyperthyroidism We will increase her Synthroid to 112 mcg daily. I will recheck this in 3 months #3 General Medical Examination Adult She is maintaining an active lifestyle encouraged her to continue this. Will update her vaccines today and she is also due for her mammogram which we will get set up #4 Migraine Headache These have been stable they seem to be doing quite a bit better. I think this may be secondary to less stress #5 Screening Examination Diabetes Mellitus Will check a metabolic panel again next year #6 Encounter For Screening For Cardiovascular Disorders And a lipid panel #7 Screening Cancer Colon She is due for colon cancer screening Will put through colo guard. Fausto Good P.A.-C. documented in this encounter Plan of Treatment Scheduled Referrals Name Type Priority Associated Diagnoses Order S [facility] Medicine Outpatient Referral Routine Expec brea: office visit 08/25/2021 (clinic) (Approximate), Expires: 08/26/2023 documented as of this encounter Results Lipid Panel (08/23/2021 2:07 PM CDT) P athologist Signature Triglycerides 59 mg/dL 08/23/2021 [place] [...] Organization Address City/State/ZIP Code Phon e Number [facility]- [address] [facility] [place] [address] [facility] [place] [address] System in [place] [address] Comprehensive Metabolic Panel (08/23/2021 2:07 PM CDT) [...] CDT eGFR-Black/Afric >90 >=60 08/23/2021 [place] an Brazilian mL/min/BSA 4:06 PM CDT Comment: ----ADDITIONAL INFORMATION---- [...] P.A.-C. LAB BLOOD ADD-ON Performing Organization Address City/[facility]/ZIP Code Phon e Number [facility]- [address] [place] [id number] [place] [address] System in [place] [address] [place] [address] (ABNORMAL) S-TSH (Thyroid-Stimulating Hormone - Sensitive) (08/23/2021 2:07 PM CDT) P athologist Signature TSH, Sensitive 17.3 (H) 0.3 - 4.2 08/23/2021 [place] mIU/L 4:06 PM CDT Specimen Anatomical Collection Method Collection Time Receive d Time (Source) Location / / Volume Laterality Blood (Blood, 08/23/2021 2:07 PM 08/24/19 3:30 Venous) CDT PM CDT Fausto Good P.A.-C. LAB BLOOD ADD-ON Performing Organization Address City/[facility]/ZIP Code Phon e Number [facility]- [address] [place] [address] [place] [address] System [address] documented in this encounter Visit Diagnoses Diagnosis Hypertension Essential Primary - Primary Graves' Hyperthyroidism General Medical Examination Adult Migraine Headache Screening Examination Diabetes Mellitus Encounter For Screening For Cardiovascul ar Disorders Screening Cancer Colon documented in this encounter Additional Health Concerns Assessment Noted Time PHQ-9 Depression Total Score: 11 10/28/2018 2:28 PM CD T documented as of this encounter Care Teams Downstairs Maid Relationship Specialty Start Date End Date Fausto Good P.A.-C. PCP - General 07/25/[address] [place] [phone] documented as of this encounter
--- OUTSIDE RECORDS SUMMARY | 2022-01-23 07:16 | XMS_ITS | Encounter Summary ---
:1965 Author Organization [facility] Address [address] [place] [address] Care Team Providers Name Role Phone Fausto Good P.A.-C. Primary Care Provider [phone] Reason for Referral Outpatient (Routine) - Closed Specialty Diagnoses / Procedures Referred By Contact Refer red To Contact Diagnoses Complex Tear Medial Meniscus Current Injury Left Knee Subsequent Preoperative Exam Fausto Good P.A.-C. [facility] [place] [facility] Procedures ECG 12 Lead [address] [place] [address] Referral ID Status Reason Start Date Expiration Date Visits Requ ested Visits Authorized [id number] Closed 03/21/2021 03/21/2022 1 1 EY PARTY CHIEF Outpatient (Routine) - Closed Specialty Diagnoses / Procedures Referred By Contact Refer red To Contact Diagnoses Complex Tear Medial Meniscus Current Injury Left Knee Subsequent Preoperative Exam Fausto Good P.A.-C. [facility] [place] [facility] Procedures DX Chest AP or PA and Lateral 2 Views [address] [place] [address] Referral ID Status Reason Start Date Expiration Date Visits Requ ested Visits Authorized [id number] Closed 03/21/2021 03/21/2022 1 1 EY PARTY CHIEF Reason for Visit Reason Comments Pre-op Exam Left knee arthroscopy with Arturo Eubanks on 03/28/21. Outpatient (Routine) - Closed Specialty Diagnoses / Procedures Referred By Contact Refer red To Contact Family Medicine Diagnoses Complex Tear Medial Meniscus Current Injury Left Knee Subsequent Asad Eubanks [facility] [place] Kwon M.D. [address] [place] [address] Referral ID Status Reason Start Date Expiration Date Visits Requ ested Visits Authorized [id number] Closed 02/16/2021 02/16/2022 1 1 Encounter Details Date Type Department Care Team Description 03/21/2021 Office Visit Department of Family Fausto Good Hy pertension Essential Primary (Primary Dx); Medicine, [place] Complex Tear Medial Meniscus Current Inj ury Left Knee Subsequent; Clinic, in [place], [address] [place], [place] [address]eth Graves' Hyperthyroidism; [place], [place] Angioedema Acquired Personal History; [address] [address] Preoperative Exam [place], [place] [phone] (Work) [phone] Social History Tobacco Use Types Packs/Day Years [...] or relatives? How often do you attend mandaeism or Never 2021 gnosticism services? Do you belong to any clubs or No 02/16/2021 organizations such as mandaeism groups, unions, fraternal or athletic groups, or [...] to pay for the very basics like [employer] hat hard 02/16/2021 food, housing, medical care, [...] Sign Reading Time Taken Comments Blood Pressure 127/82 03/21/2021 3:59 PM SURVEY PARTY CHIEF Average Pulse 76 03/21/2021 3:59 PM SURVEY PARTY CHIEF Temperature 36.4 ??C (97.5 ??F) 03/21/2021 3:59 PM SURVEY PARTY CHIEF Respiratory Rate 16 03/21/2021 3:59 PM SURVEY PARTY CHIEF Oxygen Saturation 96% 03/21/2021 3:59 PM SURVEY PARTY CHIEF Inhaled Oxygen Concentration - - Weight 84.8 kg (186 lb 15.2 oz) 03/21/2021 3:59 PM SURVEY PARTY CHIEF Height 160 cm (5' 2.99) 03/21/2021 3:59 PM SURVEY PARTY CHIEF Body Mass Index 33.13 03/21/2021 3:59 PM SURVEY PARTY CHIEF documented in this encounter H&P Notes Fausto Good P.A.-C. - 03/21/2021 4:00 PM CST SUBJECTIVE PREOPERATIVE HISTORY AND PHYSICAL CHIEF COMPLAINT / REASON FOR VISIT Hannah Kahn is a 55 y.o. female who presents for evaluation of Pre-op Exam (Left kneearthroscopy with Dr. Eubanks on 03/28/21.). HISTORY OF PRESENT ILLNESS Hannah presents today for preop history and physical prior to her upcoming knee surgery. She has been struggling with knee pain for the last few months this is a work comp injury. I reviewed her MRI. She is able to walk two city blocks without having shortness of breath or chest pain but is significantly limited by her knee discomfort. Current Outpatient Medications Medication Sig Dispense Refill ??? amLODIPine (NORVASC) 10 mg tablet Take 1 tablet (10 mg total) by mouth daily. 90 tablet 3 ??? EPINEPHrine 0.3 mg/0.3 mL injection syringe Inject 0.3 mL (0.3 mg total) intramuscularly as needed for anaphylaxis. Inject into the thigh. 1 each 1 ??? levothyroxine (SYNTHROID, LEVOTHROID) 112 mcg tablet Take 1 tablet (112 mcg total) by mouth daily. 90 tablet 3 ??? lisinopril-hydroCHLOROthiazide (PRINZIDE,ZESTORETIC) 20-25 mg per tablet Take 1 tablet by mouth daily. 90 tablet 3 ??? traMADoL (ULTRAM) 50 mg tablet Take 1 tablet (50 mg total) by mouth every 6 (six) hours as needed for moderate pain or score 4-6 of 10 Indications: Chronic Pain/Nonacute Pain. 30 tablet 0 No current facility-administered medications for this visit. [...] (see comments) Other reaction(s): Throat Swelling/Closing ??? [place] Hives and Other (see comments) Other reaction(s): Throat Swelling/Closing ??? Penicillins Other (see comments) and Hives Other reaction(s): Throat Swelling/Closing ??? Shellfish Containing Products Anaphylaxis ??? Tree Nut Shortness of breath and Hives Other reaction(s): Throat Swelling/Closing [place] nuts- Use these nuts to make nutmeg Patient carries Epinephrine pen. MEDICAL HISTORY Patient Active Problem List Diagnosis ??? Migraine Headache ??? Angioedema Acquired Personal History ??? Hypertension Essential Primary ??? Graves' Hyperthyroidism Past Surgical History: Procedure Laterality Date ??? CHOLECYSTECTOMY N/A Cholecystectomy ??? CHOLECYSTECTOMY ??? DILATATION AND CURETTAGE ??? ENDOMETRIAL THERMAL ABLATION N/A 05/20/2003 Endometrial ablation, thermal, without hysteroscopic guidance.. ??? GALLBLADDER SURGERY ??? HERNIA REPAIR ??? OTHER SURGICAL HISTORY ??? THYROIDECTOMY - TOTAL N/A 11/30/2018 Procedure: THYROIDECTOMY, TOTAL.; Surgeon: Elicia Shah M.D.; Location: [facility] OR ??? TONSILLECTOMY ??? TONSILLECTOMY AND [...] Onset ??? Heart attack Mother OBJECTIVE Vitals: 03/21/21 1559 BP: 127/82 BP Location: Left arm Patient Position: Sitting Cuff Size: Regular Pulse: 76 Resp: 16 Temp: 36.4 ??C TempSrc: Temporal SpO2: 96% Weight: 84.8 kg Height: 160 cm Body mass index is 33.13 kg/m??. PHYSICAL EXAMINATION General: Patient appears in no acute distress. ENT: TMs no erythema. Throat no erythema. Neck: No lymphadenopathy. No thyroid masses. Heart: Regular rate and rhythm. No murmurs. Lungs: Clear to auscultation. Abdomen: Soft and nontender to palpation. ASSESSMENT / PLAN #1 Complex Tear Medial Meniscus Current Injury Left Knee Subsequent She will follow-up for surgery as scheduled #2 Hypertension Essential Primary Her blood pressure is well controlled. She will continue on her current medical regimen #3 Graves' Hyperthyroidism She will continue on the Synthroid this has been well controlled #4 Angioedema Acquired Personal History She has a history of multiple drug allergies and these are listed in this note. #5 Preoperative Exam She is ASA class two for surgery. Today I checked a CBC metabolic panel chest x- ray and EKG. She is good to go for surgery. Follow-up as scheduled total time spent 30 minutes Jean Marie MaC. EY PARTY CHIEF documented in this encounter Plan of Treatment Not on filedocumented as of this encounter Results ECG 12 Lead (03/21/2021 5:12 PM SURVEY PARTY CHIEF) athologist Signature Ventricular Rate 58 BPM MUSE ECG/Min SD Interval 144 ms MUSE QRSD Interval 94 ms MUSE QT Interval 444 ms MUSE QTC Interval 435 ms MUSE P [place] 67 degrees MUSE R [place] 48 degrees MUSE T Wave [place] 21 degrees MUSE Specimen Anatomical Collection Method Collection Time Receive d Time (Source) Location / / Volume Laterality 03/21/2021 5:12 PM 5:33 SURVEY PARTY CHIEF PM SURVEY PARTY CHIEF Impressions MUSE - 03/21/2021 5:33 PM SURVEY PARTY CHIEF Sinus bradycardia Low anterior forces No previous ECGs available Reviewed by SUZY Manning Narrative This result has an attachment that is no t available. Procedure Note Humberto Armijo M.D. - 03/21/2021Formatti ng of this note might be different from the original. IMPRESSION: Sinus bradycardia Low anterior forces No previous ECGs available Reviewed by SUZY Manning Fausto Good P.A.-C. ECG ORDERABLES Performing Organization Address City/State/ZIP Code Phon e Number MUSE MUSE NA CBC with Differential, Blood (03/21/2021 5:07 PM SURVEY PARTY CHIEF) athologist Signature Hemoglobin 14.1 11.6 - 03/21/2021 FB60 15.0 g/dL 5:25 PM SURVEY PARTY CHIEF Hematocrit 41.7 35.5 - 03/21/2021 FB60 44.9 % 5:25 PM SURVEY PARTY CHIEF Erythrocytes 4.61 3.92 - 03/21/2021 FB60 5.13 5:25 PM SURVEY PARTY CHIEF x10(12)/L MCV 90.5 78.2 - 03/21/2021 FB60 97.9 fL 5:25 PM SURVEY PARTY CHIEF RBC Distrib Width 12.3 12.2 - 03/21/2021 FB60 16.1 % 5:25 PM SURVEY PARTY CHIEF Platelet Count 235 157 - 371 03/21/2021 FB60 x10(9)/L 5:25 PM SURVEY PARTY CHIEF Leukocytes 8.2 3.4 - 9.6 03/21/2021 FB60 x10(9)/L 5:25 PM SURVEY PARTY CHIEF Neutrophils 5.09 1.56 - 03/21/2021 FB60 6.45 5:25 PM SURVEY PARTY CHIEF x10(9)/L Lymphocytes 2.22 0.95 - 03/21/2021 FB60 3.07 5:25 PM SURVEY PARTY CHIEF x10(9)/L Monocytes 0.76 0.26 - 03/21/2021 FB60 0.81 5:25 PM SURVEY PARTY CHIEF x10(9)/L Eosinophils 0.12 0.03 - 03/21/2021 FB60 0.48 5:25 PM SURVEY PARTY CHIEF x10(9)/L Basophils 0.05 0.01 - 03/21/2021 FB60 0.08 5:25 PM SURVEY PARTY CHIEF x10(9)/L Specimen Anatomical Collection Method Collection Time Receive d Time (Source) Location / / Volume Laterality Blood (Blood, 03/21/2021 5:07 PM 03/21/19 22 5:17 Venous) SURVEY PARTY CHIEF PM SURVEY PARTY CHIEF Fausto Good P.A.-C. LAB BLOOD ADD-ON Performing Organization Address City/State/ZIP Code Phon e Number [address] [place] [address] [facility] [address] [place] [address] System [address] (ABNORMAL) Basic Metabolic Panel (03/21/2021 5:07 PM SURVEY PARTY CHIEF) P athologist Signature Potassium, P 4.2 3.6 - 5.2 03/21/2021 [place] mmol/L 6:22 PM SURVEY PARTY CHIEF Sodium, P 135 135 - 145 03/21/2021 [place] mmol/L 6:22 PM SURVEY PARTY CHIEF Chloride, P 97 (L) 98 - 107 03/21/2021 [place] mmol/L 6:22 PM SURVEY PARTY CHIEF Bicarbonate, P 29 22 - 29 03/21/2021 [place] mmol/L 6:22 PM SURVEY PARTY CHIEF Anion Gap, P 9 7 - 15 03/21/2021 [place] 6:22 PM SURVEY PARTY CHIEF BUN (Blood Urea 18 6 - 21 03/21/2021 [place] Nitrogen), P mg/dL 6:22 PM SURVEY PARTY CHIEF Creatinine 0.73 0.59 - 03/21/2021 [place] 1.04 mg/dL 6:22 PM SURVEY PARTY CHIEF eGFR-Black/Afri >90 >=60 03/21/2021 [place] can [place] mL/min/BSA 6:22 PM SURVEY PARTY CHIEF Comment: ----ADDITIONAL INFORMATION---- Estimated GFR calculated using the 2009 CKD_EPI creatinine equation. eGFR Non-Black/ >90 >=60 mL/min/BSA 03/21/2021 6:22 PM SURVEY PARTY CHIEF [place] Comment: ----ADDITIONAL INFORMATION---- Estimated GFR calculated using the 2009 CKD_EPI creatinine equation. Calcium, Total, P 9.6 8.6 - 10.0 mg/dL 03/21/2021 6:22 PM SURVEY PARTY CHIEF [place] Glucose, P 112 70 - 140 mg/dL 03/21/2021 6:22 PM SURVEY PARTY CHIEF O SOPHIA Specimen Anatomical Collection Method Collection Time Receive d Time (Source) Location / / Volume Laterality Blood (Blood, 03/21/2021 5:07 PM 03/21/19 5:57 Venous) SURVEY PARTY CHIEF PM SURVEY PARTY CHIEF Fausto Good P.A.-C. LAB BLOOD ADD-ON Performing Organization Address City/State/ZIP Code Phon e Number [facility]- [address] [place] [address] [facility] [place] [address] System in [place] [address] DX Chest AP or PA and Lateral 2 Views (03/21/2021 4:48 PM SURVEY PARTY CHIEF) Anatomical Region Laterality Modality Chest, Thoracic RST LOS, Thoracic ARZ LOS, Thoracic N/A Digital Radiography FLA LOS Specimen (Source) Anatomical Collection Method Collection Time Re ceived Time Location / / Volume Laterality 03/21/2021 5:01 PM SURVEY PARTY CHIEF Impressions 03/21/2021 5:02 PM SURVEY PARTY CHIEF No evidence of acute cardiopulmonary abnormality. No focal pulmonary consolidation or pleural effusion. Chen l heart size. No pneumothorax. Spondylosis. Narrative 03/21/2021 5:02 PM SURVEY PARTY CHIEF EXAM: DX CHEST AP OR PA AND LATERAL 2 VIEWS Procedure Note Estuardo Gonzalez M.D. - 03/21/2021Formattin g of this note might be different from the original. EXAM: DX CHEST AP OR PA AND LATERAL 2 EWS IMPRESSION: No evidence of acute cardiopulmonary abn ormality. No focal pulmonary consolidation or pleural effusion. Chen l heart size. No pneumothorax. Spondylosis. Fausto Good P.A.-C. IMG DI[facility]NOST[facility] documented in this encounter Visit Diagnoses Diagnosis Hypertension Essential Primary - Primary Complex Tear Medial Meniscus Current Inj ury Left Knee Subsequent Graves' Hyperthyroidism Angioedema Acquired Personal History Preoperative Exam Complex Tear Medial Meniscus Current Inj ury Left Knee Subsequent Preoperative Exam Complex Tear Medial Meniscus Current Inj ury Left Knee Subsequent Preoperative Exam documented in this encounter Additional Health Concerns Assessment Noted Time PHQ-9 Depression Total Score: 11 10/28/2018 2:28 PM CD T documented as of this encounter Care Teams Organ Teacher Relationship Specialty Start Date End Date Fausto Good P.A.-C. PCP - General 07/25/16 [address] [place] [phone] documented as of this encounter
--- OUTSIDE RECORDS SUMMARY | 2022-01-23 07:16 | XMS_ITS | Encounter Summary ---
:1965 Author Organization [facility] Address [address] [place] [address] Care Team Providers Name Role Phone Fausto Good P.A.-C. Primary Care Provider [phone] Encounter Details Date Type Department Care Team Description 01/16/2021 Clinical Communication Department of Asad Eubanks Orthopedic Surgery ny Latrice Pandya [place], [place] [address] [place] [phone] Social History Tobacco Use Types Packs/Day Years [...] or relatives? How often do you attend yarsani or Never 2021 catholic services? Do you belong to any clubs or No 02/16/2021 organizations such as yarsani groups, unions, fraternal or athletic groups, or [...] to pay for the very basics like [employer] hat hard 02/16/2021 food, housing, medical care, [...] this encounter Miscellaneous Notes Telephone Encounter - Elvia Crooks - 01/16/2021 3:15 PM CST Reason for Communication: Belle from [facility] needs a new order for the imagining of left knee with a diagnosis code attached. Please fax new order to [phone]. Thank you. Current Phone Number: Can Nursing/Provider leave a detailed message?: Did the patient refuse triage through Nurse line? (for symptom based concerns): Action Needed: Fax new order Name of Medication (if relevant): Please send all scheduling replies to scheduling pool. REPAIRER documented in this encounter Plan of Treatment Not on filedocumented as of this encounter Visit Diagnoses Not on filedocumented in this encounter Additional Health Concerns Assessment Noted Time PHQ-9 Depression Total Score: 11 10/28/2018 2:28 PM CD T documented as of this encounter Care Teams Floor Nurse Relationship Specialty Start Date End Date Fausto Good P.A.-C. PCP - General 07/25/[address] [place] [phone] documented as of this encounter
--- OUTSIDE RECORDS SUMMARY | 2022-01-23 07:16 | XMS_ITS | Encounter Summary ---
:1965 Author Organization [facility] Address [address] [place] [address] Care Team Providers Name Role Phone Fausto Good P.A.-C. Primary Care Provider [phone] Reason for Visit Outpatient (Routine) - Closed Specialty Diagnoses / Procedures Referred By Contact Refer red To Contact Orthopedic Surgery Diagnoses Pain Knee Left Fausto Good [facility] P.AFarzana-CFarzana [address] [place] [address] Referral ID Status Reason Start Date Expiration Date Visits Requ ested Visits Authorized [id number] Closed 12/25/2020 12/25/2021 1 1 Encounter Details Date Type Department Care Team Description 01/10/2021 Comprehensive Visit Department of Ean Eubanks Kn ee Left Orthopedic Surgery Asad Pandya M.D. (Primary Dx) in [address] [phone] Social History Tobacco Use Types Packs/Day Years [...] or relatives? How often do you attend taoist or Never 2021 mormon services? Do you belong to any clubs or No 02/16/2021 organizations such as taoist groups, unions, fraternal or athletic groups, or [...] place to sleep or slept in a group home (including now)? Education Answer Date Recorded What is the highest level of school you have Some college, n o degree 09/27/2018 completed or the highest degree you have received? Sex Assigned at Date Recorded Female 10/01/2017 7:47 AM CDT documented as of this encounter Consult Notes Juwan Hernandez P.A.-C. - 01/10/2021 3:00 PM CST Workers' Compensation Claim Current date: 01/10/2021 Employer: [employer] Date of Injury: 11/16/2020 Body part(s): Left knee REASON FOR VISIT:left knee pain REFERRING PROVIDER: Fausto Good P.A.-C. HPI: Hannah Kahn is a 55 y.o. female who presents today for evaluation of left knee pain. She reports that she slipped on water at work on 11/16/2020 resulting in left knee pain and right lower extremity bruising. Since that time she has had sharp medial-sided pain with weight-bearing activities. She also reports occasional catching and a feeling of instability. She has tried a cortisone injection on 12/18/2020 which gave her some relief but was very temporary. She has started a new job where she works 1 hour and then has now hour break. She states that her knee is able to tolerate this. Patient denies any recent weight change, fever, chills, night sweats, nausea, vomiting, lightheadedness, dizziness, chest pain or pressure. Please see Orthopedic intake form that is scanned into the EMR for complete list of medication, allergies, past medical history, past family history, past social history, and complete review of systems. VITALS: There were no vitals taken for this visit. PHYSICAL EXAM: General: This is a well-nourished well-developed female. She is alert and oriented x3. She is in no acute distress. She is cooperative and responds appropriately all questions. Musculoskeletal: Pain with palpation along the medial joint line. Positive Apley's compression and Apley's distraction testing. Negative anterior posterior drawer test. Negative valgus and varus stresstesting. Neurovascularly intact distally. Capillary refill less than 2 seconds. ASSESSMENT AND PLAN: 1. Left knee pain, likely medial meniscus tear. Hannah is a very pleasant 55-year-old female who is here today for a work comp injury of her left knee. Given her mechanical symptoms and sharp pains we have recommended proceeding with an MRI of the left knee to evaluate firm medial meniscus tear. We will plan on seeing her back in clinic once the results of this are available. All questions were answered to patient's satisfaction. Total time of visit: 30 minutes, 25 minutes spent on counseling and coordination of care. Answers for HPI/ROS submitted by the patient on 01/09/2021 No general issues: Yes No eye issues: Yes No ENT issues: Yes Swelling in the legs or feet: Yes Pain in the calf muscles when walking: Yes Dry cough: Yes No GI issues: Yes Pain or stiffness in the joints: Yes Joint swelling: Yes No skin issues: Yes No neurologic issues: Yes No mental health issues: Yes No blood/lymph issues: Yes No urinary/reproductive issues: Yes TRUCTION SALES REPRESENTATIVE Associated attestation - Asad Eubanks M.D. - 01/10/2021 3:31 PM CONSTRUCTION SALES REPRESENTATIVE Patient seen and examined with Physician Cable Rigger. Agree with above assessment and plan. documented in this encounter Plan of Treatment Not on filedocumented as of this encounter Visit Diagnoses Diagnosis Pain Knee Left - Primary documented in this encounter Additional Health Concerns Assessment Noted Time PHQ-9 Depression Total Score: 11 10/28/2018 2:28 PM CD T documented as of this encounter Care Teams Drywaller Relationship Specialty Start Date End Date Fausto Good P.A.-C. PCP - General 07/25/[address] [place] [phone] documented as of this encounter
--- OUTSIDE RECORDS SUMMARY | 2022-01-23 07:16 | XMS_ITS | Encounter Summary ---
:1965 Author Organization [facility] Address [address] [place] [address] Care Team Providers Name Role Phone Fausto Good-Edgar Primary Care Provider [phone] Encounter Details Date Type Department Care Team Description 12/12/2020 Orders Only [facility] MNT Fausto Good, Screening Mammogram P.A.-C. Breast Cancer [address] [place] [phone] Social History Tobacco Use Types Packs/Day Years [...] or relatives? How often do you attend methodist or Never 2021 sikhism services? Do you belong to any clubs or No 02/16/2021 organizations such as methodist groups, unions, fraternal or athletic groups, or [...] to pay for the very basics like [employer] hat hard 02/16/2021 food, housing, medical care, [...] of this encounter Visit Diagnoses Diagnosis Screening Mammogram Breast Cancer documented in this encounter Additional Health Concerns Assessment Noted Time PHQ-9 Depression Total Score: 11 10/28/2018 2:28 PM CD T documented as of this encounter Care Teams Boring Mill Operator For Metal Relationship Specialty Start Date End Date Fausto Good P.A.-C. PCP - General 07/25/[address] [place] [phone] documented as of this encounter
--- OUTSIDE RECORDS SUMMARY | 2022-01-23 07:16 | XMS_ITS | Encounter Summary ---
:1965 Author Organization [facility] Address [address] [place] [address] Care Team Providers Name Role Phone Fausto Good P.A.-C. Primary Care Provider [phone] Encounter Details Date Type Department Care Team Description 02/19/2021 Clinical Communication Department of Asad Eubanks Orthopedic Surgery me Latrice Pandya [place], [place] [address] [place] [phone] Social History Tobacco Use Types Packs/Day Years [...] do you attend mandaeism or Never 2021 oriental orthodox services? Do you belong to any [...] to pay for the very basics like [employer] hat hard 02/16/2021 food, housing, medical care, [...] place to sleep or slept in a intermediate (including now)? Education Answer Date Recorded What is the highest level of school you have Some college, n o degree 09/27/2018 completed or the highest degree you have received? Sex Assigned at Date Recorded Female 10/01/2017 7:47 AM CDT documented as of this encounter Miscellaneous Notes Telephone Encounter - Nicole Dobbs R.N. - 02/20/2021 3:08 PM DIRECTOR DIGITAL Called patient and discussed the process of approving surgery through Work Comp and then scheduling.Patient verbalized understanding this information and has no further questions. CTOR DIGITAL Telephone Encounter - Jud Guerrero - 02/20/2021 1:20 PM CST Patient is calling in and stated that the message that was left for her cut off. Patient did say that work comp told her that the surgery has to be scheduled first, so they will know what they are covering. Patient is asking for a call back. CTOR DIGITAL Telephone Encounter - Isatu Jimenez, C.N.Shawna - 02/20/2021 12:08 PM DIRECTOR DIGITAL Patient still doesn't have approval from work comp to schedule surgery at this time. I called patient and let them know we have to wait for this. I informed the patient I will call them to schedule as soon as I see the approval went through, or patient will call me if they hear of their approval first. CTOR DIGITAL Telephone Encounter - Claudette Plaza - 02/19/2021 1:47 PM CST Reason for Communication: Patient calling in and needs to scehdule her surgery with Dr. Eubanks. Please advise and call back after 12 pm as patient works nights. Current Can Nursing/Provider leave a detailed message?: Yes Did the patient refuse triage through Nurse line? (for symptom based concerns): n/a Action Needed: Call back Name of Medication (if relevant): Please send all scheduling replies to scheduling pool. CTOR DIGITAL documented in this encounter Plan of Treatment Not on filedocumented as of this encounter Visit Diagnoses Not on filedocumented in this encounter Additional Health Concerns Assessment Noted Time PHQ-9 Depression Total Score: 11 10/28/2018 2:28 PM CD T documented as of this encounter Care Teams Supply Chain Design Manager Relationship Specialty Start Date End Date Fausto Good P.A.-C. PCP - General 07/25/[address] [place] [phone] documented as of this encounter
--- OUTSIDE RECORDS SUMMARY | 2022-01-23 07:16 | XMS_ITS | Encounter Summary ---
:1965 Author Organization [facility] Address [address] [place] [address] Care Team Providers Name Role Phone Fausto Good P.A.-C. Primary Care Provider [phone] Encounter Details Date Type Department Care Team Description 04/10/2021 Clinical Communication Department of Fausto Lam [facility], Mariela Gerardo [facility], [address] [address] [place], [place] [phone] (Work) [phone] Social History Tobacco Use Types Packs/Day Years [...] or relatives? How often do you attend sabianism or Never 2021 alevism services? Do you belong to any clubs or No 02/16/2021 organizations such as sabianism groups, unions, fraternal or athletic groups, or [...] to pay for the very basics like [employer] hat hard 02/16/2021 food, housing, medical care, [...] this encounter Miscellaneous Notes Telephone Encounter - Lashonda Velarde L.PFarzanaN. - 04/10/2021 11:51 AM CST Paperwork refaxed as requested. PICKLED MEAT Telephone Encounter - Percy Muñoz - 04/10/2021 11:13 AM CST Reason for Communication: Work comp paperwork was faxed yesterday and the last page was unreadable. Please refax paperwork to the number provided on paperwork. Current Phone Number: Can Nursing/Provider leave a detailed message?: Did the patient refuse triage through Nurse line? (for symptom based concerns): Action Needed: Please refax Name of Medication (if relevant): Please send all scheduling replies to scheduling pool. PICKLED MEAT documented in this encounter Plan of Treatment Not on filedocumented as of this encounter Visit Diagnoses Not on filedocumented in this encounter Additional Health Concerns Assessment Noted Time PHQ-9 Depression Total Score: 11 10/28/2018 2:28 PM CD T documented as of this encounter Care Teams Academic Manager Relationship Specialty Start Date End Date Fausto Good P.A.-C. PCP - General 07/25/[address] [place] [phone] documented as of this encounter
--- OUTSIDE RECORDS SUMMARY | 2022-01-23 07:16 | XMS_ITS | Encounter Summary ---
:1965 Author Organization [facility] Address [address] [place] [address] Care Team Providers Name Role Phone Fausto Good P.A.-C. Primary Care Provider [phone] Reason for Referral Outpatient (Routine) - Closed Specialty Diagnoses / Procedures Referred By Contact Refer red To Contact Diagnoses Complex Tear Medial Meniscus Current Injury Left Knee Subsequent Preoperative Exam Fausto Good P.A.-C. [facility] [place] [facility] Procedures DX Chest AP or PA and Lateral 2 Views [address] [place] [address] Referral ID Status Reason Start Date Expiration Date Visits Requ ested Visits Authorized [id number] Closed 03/21/2021 03/21/2022 1 1 MOLDER HAND Reason for Visit Outpatient (Routine) - Closed Specialty Diagnoses / Procedures Referred By Contact Refer red To Contact Diagnoses Complex Tear Medial Meniscus Current Injury Left Knee Subsequent Preoperative Exam Fausto Good P.A.-C. [facility] [place] [facility] Procedures DX Chest AP or PA and Lateral 2 Views [address] [place] [address] Referral ID Status Reason Start Date Expiration Date Visits Requ ested Visits Authorized [id number] Closed 03/21/2021 03/21/2022 1 1 Encounter Details Date Type Department Care Team Description 03/21/2021 Hospital Encounter Department of Latisha Complex Tear Medial Meniscus Current Injury Left Knee Subsequent; Radiology in [facility] Lambert Preoperative Exam Mariela, Brianne [place], [place] [address] [address] STEPAN BUSTILLOS [phone] (Work) [phone] Social History Tobacco Use Types Packs/Day Years [...] or relatives? How often do you attend anabaptist or Never 2021 pentecostal services? Do you belong to any clubs or No 02/16/2021 organizations such as anabaptist groups, unions, fraternal or athletic groups, or [...] Name Priority Date/Time Associated Comments Diagnosis DX CHEST AP OR PA RAD - Routine 03/21/2021 4:48 Complex Tear Result s for this AND LATERAL 2 (most inpatients PM TILE MOLDER HAND Medial Meniscus procedu re are in VIEWS and all Current Injury the results outpatients) Left Knee section. Subsequent Preoperative Exam documented in this encounter Results DX Chest AP or PA and Lateral 2 Views (03/21/2021 4:48 PM TILE MOLDER HAND) Anatomical Region Laterality Modality Chest, Thoracic RST LOS, Thoracic ARZ LOS, Thoracic N/A Digital Radiography FLA LOS Specimen (Source) Anatomical Collection Method Collection Time Re ceived Time Location / / Volume Laterality 03/21/2021 5:01 PM TILE MOLDER HAND Impressions 03/21/2021 5:02 PM TILE MOLDER HAND No evidence of acute cardiopulmonary abnormality. No focal pulmonary consolidation or pleural effusion. Chen l heart size. No pneumothorax. Spondylosis. Narrative 03/21/2021 5:02 PM TILE MOLDER HAND EXAM: DX CHEST AP OR PA AND [...] Spondylosis. Fausto Good P.A.-C. IMG DIAGNOSTIC IMAGING PROCE DURES documented in this encounter Visit Diagnoses Diagnosis Complex Tear Medial Meniscus Current Inj ury Left Knee Subsequent Preoperative Exam documented in this encounter Additional Health Concerns Assessment Noted Time PHQ-9 Depression Total Score: 11 10/28/2018 2:28 PM CD T documented as of this encounter Care Teams Extrusion Press Adjuster Relationship Specialty Start Date End Date Fausto Good P.A.-C. PCP - General 07/25/16 [address] [place] [phone] documented as of this encounter
--- OUTSIDE RECORDS SUMMARY | 2022-01-23 07:16 | XMS_ITS | Encounter Summary ---
:1965 Author Organization [facility] Address [address] [place] [address] Care Team Providers Name Role Phone Fausto Good P.A.-C. Primary Care Provider [phone] Encounter Details Date Type Department Care Team Description 02/08/2021 Clinical Communication Department of Asad Eubanks Orthopedic Surgery ks Latrice Pandya [place], [place] [address] [place] [phone] Social History Tobacco Use Types Packs/Day Years [...] or relatives? How often do you attend temple or Never 2021 yazidi services? Do you belong to any clubs or No 02/16/2021 organizations such as temple groups, unions, fraternal or athletic groups, or [...] to pay for the very basics like [employer] hat hard 02/16/2021 food, housing, medical care, [...] Miscellaneous Notes Telephone Encounter - Lashonda Velarde L.P.NFarzana - 02/08/2021 4:44 PM CST Called and spoke with patient. Given appointment to see Dr. Eubanks on 02/16/21 for results of left knee MRI. SEAT UPHOLSTERER Telephone Encounter - Celsa Richard - 02/08/2021 2:13 PM CST Reason for Communication: Pt called and had an MRI done at [facility] on 01/29, she would like the results Current Can Nursing/Provider leave a detailed message?: yes Did the patient refuse triage through Nurse line? (for symptom based concerns): na Action Needed: Please call back Name of Medication (if relevant): Please send all scheduling replies to scheduling pool. SEAT UPHOLSTERER documented in this encounter Plan of Treatment Not on filedocumented as of this encounter Visit Diagnoses Not on filedocumented in this encounter Additional Health Concerns Assessment Noted Time PHQ-9 Depression Total Score: 11 10/28/2018 2:28 PM CD T documented as of this encounter Care Teams Counter Supervisor Relationship Specialty Start Date End Date Fausto Good P.A.-C. PCP - General 07/25/[address] [place] [phone] documented as of this encounter
--- OUTSIDE RECORDS SUMMARY | 2022-01-23 07:16 | XMS_ITS | Encounter Summary ---
:[address] [facility] Address [address] [place] [address] Care Team Providers Name Role Phone Fausto Good P.A.-C. Primary Care Provider [phone] Reason for Referral Specialty Diagnoses / Procedures Referred By Contact Refer red To Contact Cory James M.D. [facility] [address] [facility] [place] [address] Referral ID Status Reason Start Date Expiration Date Visits Requ ested Visits Authorized Encounter Details Date Type Department Care Team Description 05/12/2020 Orders Only [facility] PCP [facility] Sa josué Neves M.D. [address] [place], [place] [phone] (Wo rk) Social History Tobacco Use Types [...] or relatives? How often do you attend worship or Never 2021 yazdanism services? Do you belong to any clubs or No 02/16/2021 organizations such as worship groups, unions, fraOpternative or athletic groups, or school groups? How [...] Name Type Priority Associated Order Schedule Diagnoses Covid immunization Outpatient Referral Routine Ex pected: office visit Initial 021 (Approximate), Expires: 05/12/2021 documented as of this encounter Visit Diagnoses Not on filedocumented in this encounter Additional Health Concerns Assessment Noted Time PHQ-9 Depression Total Score: 11 10/28/2018 2:28 PM CD T documented as of this encounter Care Teams Buffer Operator Relationship Specialty Start Date End Date Fausto Good P.A.-C. PCP - General 07/25/16 [address] [place] [phone] documented as of this encounter
--- OUTSIDE RECORDS SUMMARY | 2022-01-23 07:16 | XMS_ITS | Encounter Summary ---
:1965 Author Organization [facility] Address [address] [place] [address] Care Team Providers Name Role Phone Fausto Good P.A.-C. Primary Care Provider [phone] Reason for Referral Outpatient (Routine) - Closed Specialty Diagnoses / Procedures Referred By Contact Refer red To Contact Diagnoses Pain Knee Left Fausto Good P.A.-C. [facility] Procedures Large Joint Injection: L knee joint [address] [place] [address] Referral ID Status Reason Start Date Expiration Date Visits Requ ested Visits Authorized [id number] Closed 12/18/2020 12/18/2021 1 1 E ALIGNER Reason for Visit Reason Comments Follow-up [facility]- L leg injured Appointment Request (Routine) - Closed Specialty Diagnoses / Procedures Referred By Contact Refer red To Contact Family Medicine Referral ID Status Reason Start Date Expiration Date Visits Requ ested Visits Authorized [id number] Closed 12/18/2020 12/18/2021 1 1 Encounter Details Date Type Department Care Team Description 12/18/2020 Office Visit Department of Fausto Lam Pa in Knee Left MedicineMariela P.A.-C. (Primary Dx) Clinic, [address] [address] [place], [place] [phone] (Work) [phone] Social History Tobacco Use Types Packs/Day Years [...] or relatives? How often do you attend shinto or Never 2021 zoroastrian services? Do you belong to any clubs or No 02/16/2021 organizations such as shinto groups, unions, fraternal or athletic groups, or [...] Sign Reading Time Taken Comments Blood Pressure 165/95 12/18/2020 3:19 PM FRAME ALIGNER Pulse 80 12/18/2020 3:11 PM FRAME ALIGNER Temperature 36.5 ??C (97.7 ??F) 12/18/2020 3:11 PM FRAME ALIGNER Respiratory Rate - - Oxygen Saturation - - Inhaled Oxygen Concentration - - Weight 84 kg (185 lb 3 oz) 12/18/2020 3:11 PM FRAME ALIGNER Height - - Body Mass Index 33.23 02/15/2019 2:36 PM FRAME ALIGNER documented in this encounter Progress Notes Fausto Good P.A.-C. - 12/18/2020 3:30 PM CST SUBJECTIVE CHIEF COMPLAINT / REASON FOR VISIT Hannah Kahn is a 55 y.o. female who presents for evaluation of Follow-up ([facility]- L leg injured). HISTORY OF PRESENT ILLNESS Hannah presents today with complaints of pain in her left knee. This has been going on now for aboutthe last three weeks. She suffered an injury at work where she tripped and fell. She has been able to walk but walked quite a bit a few days ago and now has increasing discomfort in her knee. OBJECTIVE Vitals: 12/18/20 1511 12/18/20 1519 BP: (!) 174/97 (!) 165/95 BP Location: Left arm Left arm Patient Position: Sitting Sitting Cuff Size: Regular Regular Pulse: 80 Temp: 36.5 ??C Weight: 84 kg Body mass index is 33.23 kg/m??. PHYSICAL EXAMINATION In general she appears in no acute distress. Left knee: No erythema she has some mild swelling. Roel sign was positive with both internal and external rotation. Drawer sign negative. ASSESSMENT / PLAN #1 Pain Knee Left We had a long discussion about this she wants to avoid surgery if at all possible. She has been seenfor this in the emergency room and apparently an x- ray was negative for any fractures. I was unable to view this x-ray today. After some discussion we opted to inject her knee. She realizes that this would delay any potential surgery for couple months. She wants to proceed with this regardless becauseshe wants to avoid further evaluation with MRI and or surgery if necessary. If she has any questionsor problems she will let us know otherwise follow up as needed. She will notify us with her responseto the injection. Please see separate procedure note Fausto Good P.A.-C. E ALIGNER documented in this encounter Procedure Notes Fausto Good P.A.-C. - 12/18/2020 3:30 PM CSTAssociated Order(s): Large Joint Injection: L knee joint Post-Procedure Diagnose(s): Pain Knee Left Knee site- L knee joint : injection only Date/Time: 12/18/2020 5:36 PM Performed by: Fausto Good P.A.-C. Authorized by: Fausto Good P.A.-C. PROCEDURE DETAILS Procedure Location knee Knee site: L knee joint Patient position: supine Procedural approach: superolat Procedure performed: injection only Needle gauge: 22 G, length: 1 1/2 in Procedural Medication The following medications were administered at the target site(s) Local anesthetic: 5 mL lidocaine 10 mg/mL (1 %) Corticosteroid: 40 mg triamcinolone acetonide 40 mg/mL CONSENT Consent obtained: verbal The benefits, risks and alternatives to the [...] procedural pause. PRE-PROCEDURE DETAILS Procedure purpose: therapeutic Site preparation: alcohol and povidone-iodine SEDATION / ANESTHESIA Anesthesia method: none POST-PROCEDURE DETAILS Procedure completed successfully: yes Complications: no apparent complications E ALIGNER documented in this encounter Plan of Treatment Not on filedocumented as of this encounter Procedures Procedure Name Priority Date/Time Associated Diagnosis Comme nts [facility] [facility]THCS ASP/INJ Routine 12/18/2020 5:36 PM Pain Knee Left Re sults for this TREASURER CHANDAN VALERA US FRAME ALIGNER procedure are i n the results section. documented in this encounter Results [facility] [facility]THCS ASP/INJ MJR JT WO US (12/18/2020 5:36 PM FRAME ALIGNER) Narrative MMODAL - 12/18/2020 5:36 PM FRAME ALIGNER Fausto Good P.A.-C. ? 12/18/2020 ??5:39 PM Knee site- L knee joint : injection only Date/Time: 12/18/2020 5:36 PM Performed by: Fausto Good P.A.-C. Authorized by: Fausto Good P.A.-C. PROCEDURE DETAILS Procedure Location knee Knee site: L knee joint Patient position: supine Procedural approach: superolat Procedure performed: injection only Needle gauge: 22 G, length: 1 1/2 in Procedural Medication The following medications were administe red at the target site(s) Local anesthetic: 5 mL lidocaine 10 mg/m L (1 %) Corticosteroid: 40 mg triamcinolone acet onide 40 mg/mL CONSENT Consent obtained: verbal The benefits, risks and alternatives to the [...] ral pause. PRE-PROCEDURE DETAILS Procedure purpose: therapeutic Site preparation: alcohol and povidone-i odine SEDATION / ANESTHESIA Anesthesia method: none POST-PROCEDURE DETAILS Procedure completed successfully: yes Complications: no apparent complications ?? Fausto Good P.A.-C. PROCEDURE/MINOR SURGICAL ORD ERABLES Performing Organization Address City/State/ZIP Code Phon e Number MMODAL MMODAL NA documented in this encounter Visit Diagnoses Diagnosis Pain Knee Left - Primary documented in this encounter Administered Medications Inactive Administered Medications - up to 3 most recent administrations Medication Order MAR Action Action Date Dose Rate Site lidocaine 10 mg/mL (1 %) injection 5 Given 12/18/2020 5:36 PM CS T 5 mL mL (XYLOCAINE) 5 mL, infiltration, One-Time Injection, Starting on 12/18/20 at 1736, For 1 dose triamcinolone acetonide injection 40 mg Given 12/18/2020 5:36 PM FRAME ALIGNER 40 mg (KENALOG-40) 40 mg, intra-articular, One-Time Injection, Starting on Fri12/18/20 at 1736, For 1 dose documented in this encounter Additional Health Concerns Assessment Noted Time PHQ-9 Depression Total Score: 10/28/2018 2:28 PM CD T documented as of this encounter Care Teams Grounds Maintenance Worker Relationship Specialty Start Date End Date Fausto Good P.A.-C. PCP - General 07/25/[address] [place] [phone] documented as of this encounter
--- OUTSIDE RECORDS SUMMARY | 2022-01-23 07:16 | XMS_ITS | Encounter Summary ---
:1965 Author Organization [facility] Address [address] [place] [address] Care Team Providers Name Role Phone Fausto Good P.A.-C. Primary Care Provider [phone] Reason for Referral Outpatient (Routine) - Closed Specialty Diagnoses / Procedures Referred By Contact Refer red To Contact Family Medicine Diagnoses Complex Tear Medial Meniscus Current Injury Left Knee Subsequent Asad Eubanks [facility] [place] [facility] M.D. [address] [place] [address] Referral ID Status Reason Start Date Expiration Date Visits Requ ested Visits Authorized [id number] Closed 02/16/2021 02/16/2022 1 1 IT FRONT OFFICE DEVELOPER Outpatient (Routine) - Closed Specialty Diagnoses / Procedures Referred By Contact Refer red To Contact Orthopedic Surgery Diagnoses left knee pain Asad Eubanks [facility] [place] [facility] M.D. [address] [place] [address] Referral ID Status Reason Start Date Expiration Date Visits Requ ested Visits Authorized [id number] Closed 02/16/2021 02/16/2022 1 1 IT FRONT OFFICE DEVELOPER Outpatient (Routine) - Closed Specialty Diagnoses / Procedures Referred By Contact Refer red To Contact Orthopedic Surgery Diagnoses post op Asad Eubanks [facility] [place] [facility] M.D. [address] [place] [address] Referral ID Status Reason Start Date Expiration Date Visits Requ ested Visits Authorized [id number] Closed 02/16/2021 02/16/2022 1 1 IT FRONT OFFICE DEVELOPER Reason for Visit Reason Comments Work Related Injury DOI 11/16/2020 Papmatthew Santillan's Pain Work Related Injury Appointment Request (Routine) - Closed Specialty Diagnoses / Procedures Referred By Contact Refer red To Contact Orthopedic Surgery Diagnoses n/a [facility] Procedures n/a Referral ID Status Reason Start Date Expiration Date Visits Requ ested Visits Authorized [id number] Closed 02/08/2021 02/08/2022 1 1 Encounter Details Date Type Department Care Team Description 02/16/2021 Office Visit Department of Asad Eubanks Medial Orthopedic Surgery in [place] Meniscus [place], [place] [address] Left Knee [address] [place], [place] Subsequent [place] [address] Dx) [phone] Social History Tobacco Use Types Packs/Day Years [...] do you attend protestant or Never 2021 lutheran services? Do you belong to any clubs [...] place to sleep or slept in a fdc (including now)? Education Answer Date Recorded What is the highest level of school you have Some college, n o degree 09/27/2018 completed or the highest degree you have received? Sex Assigned at Date Recorded Female 10/01/2017 7:47 AM CDT documented as of this encounter Patient Instructions Patient InstructionsChalino Jarvis - 02/16/2021 11:00 AM CST Surgical education was given to the patient today for left knee arthroscopy and meniscal repair to be scheduled with . All questions were answered and the patient verbalized understanding of all information and instructions given including Hibiclens sheet. Surgery scheduling met with patient and scheduled surgery and pre and post op appointments. SMP IT FRONT OFFICE DEVELOPER documented in this encounter Progress Notes Asad Eubanks M.D. - 02/16/2021 11:00 AM CST HPI: Hannah returns to clinic for follow-up of left knee MRI. Please see previous notes for complete details. She reports no changes in recently saw her. PHYSICAL EXAM: She is a healthy-appearing female no acute distress. Examination her left knee reveals benign skin. She has full range of motion. She is ligamentously stable. She has significant tenderness palpation on the medial joint line. She has no lateral tenderness. She has pain with Apley and Roel. IMAGING: MRI demonstrates a subchondral fracture of medial tibial plateau. She also has a radial tear to the posterior horn/root junction of the medial meniscus. She has diffuse grade 2/3 changes in the medial compartment. ASSESSMENT AND PLAN: Hannah is a pleasant 55-year-old female with a significant left knee medial meniscus tear and subchondral fracture of the medial tibial plateau after acute injury at work. This is work comp. I did recommend surgical intervention. Risks, benefits, alternatives to left knee arthroscopic partial medial meniscectomy explained. She expressed understanding this and agreed the decision proceed with surgery.She will need some restricted weight-bearing postoperatively due to the subchondral fracture. IT FRONT OFFICE DEVELOPER documented in this encounter Plan of Treatment Scheduled Referrals Name Type Priority Associated Order Schedule Diagnoses Orthopedic Surgery Outpatient Referral Routine 1 Occurrences Post Op (clinic) starting until 3 Orthopedic Surgery Outpatient Referral Routine 1 Occurrences Post Op (clinic) starting until 2 [facility] Outpatient Referral Routine Complex Tear Me dial Expected: consult (clinic) Meniscus Current 022 Injury Left Knee (Approximat e), Subsequent Expires: 2022 documented as of this encounter Visit Diagnoses Diagnosis Complex Tear Medial Meniscus Current Inj ury Left Knee Subsequent - Primary documented in this encounter Additional Health Concerns Assessment Noted Time PHQ-9 Depression Total Score: 11 10/28/2018 2:28 PM CD T documented as of this encounter Care Teams Insole Doubler Relationship Specialty Start Date End Date Fausto Good P.A.-C. PCP - General 07/25/[address] [place] [phone] documented as of this encounter
--- OUTSIDE RECORDS SUMMARY | 2022-01-23 07:16 | XMS_ITS | Encounter Summary ---
:1965 Author Organization [facility] Address [address] [place] [address] Care Team Providers Name Role Phone Fausto Good P.A.-C. Primary Care Provider [phone] Reason for Visit Reason Comments Med Refill Encounter Details Date Type Department Care Team Description 03/22/2021 Refill Department of Family Medicine, Fausto Aldrich P.A.-C. Med Refill [facility], in [address] [place] [phone] [place] [address] [place] [address] [phone] Social History Tobacco Use Types Packs/Day Years [...] or relatives? How often do you attend episcopal or Never 2021 restorationist services? Do you belong to any clubs or No 02/16/2021 organizations such as episcopal groups, unions, fraternal or athletic groups, or [...] this encounter Miscellaneous Notes Telephone Encounter - Sarita Mcgee L.P.N. - 03/26/2021 10:58 AM POLICY MANAGER Hannah Kahn is eligible for Controlled Substance Prescribing Plan (CSPP). Patient meets the following inclusion criteria: i. Daily use > 3 months ii. Anticipated shelter use If long-term prescribing under the controlled substance plan is something you endorse, you must enroll this patient by completing a CSPP. Name of medication: tramadol Strength: 50 mg Frequency: every 6 hours PRN for moderate pain or score 4-6 of 10 Route: oral Quantity of last refill: 30 Date of last refill: 03-21-21 The patient would like to obtain the script by: ePrescribe to pharmacy A surrogate will cone picker the script. Name: Telephone number to reach patient: See EMR CY MANAGER documented in this encounter Plan of Treatment Not on filedocumented as of this encounter Visit Diagnoses Not on filedocumented in this encounter Additional Health Concerns Assessment Noted Time PHQ-9 Depression Total Score: 11 10/28/2018 2:28 PM CD T documented as of this encounter Care Teams Form Builder Relationship Specialty Start Date End Date Fausto Good P.A.-C. PCP - General 07/25/[address] [place] [phone] documented as of this encounter
--- OUTSIDE RECORDS SUMMARY | 2022-01-23 07:16 | XMS_ITS | Encounter Summary ---
:1965 Author Organization [facility] Address [address] [place] [address] Care Team Providers Name Role Phone Fausto Good P.A.-C. Primary Care Provider Reason for Visit Reason Comments SURGERY DATE Encounter Details Date Type Department Care Team Description 03/05/2021 Clinical Communication Department of Asad Eubanks SURGERY DATE Orthopedic Surgery in [place], [place] [address] [place] [phone] Social History Tobacco Use Types Packs/Day Years [...] or relatives? How often do you attend latter-day or Never 2021 taoist services? Do you belong to any clubs or No 02/16/2021 organizations such as latter-day groups, unions, fraternal or athletic groups, or [...] this encounter Miscellaneous Notes Telephone Encounter - Isatu Jimenez CFarzanaNFarzanaAFarzana - 03/05/2021 11:41 AM MEDICAL CLERICAL ASSISTANT SURGEON: YOVANI PRE-OP: CHRISTINA 03/21/21 SURGERY DATE: 03/28/21 PROCEDURE: LEFT KNEE ARTHROSCOPY, PARTIAL MEDIAL MENISECTOMY COVID TEST: POSITIVE 02/27/21 ANESTHESIA: [facility] WILL CALL THE PATIENT WITH SURGERY TIME CAL CLERICAL ASSISTANT documented in this encounter Plan of Treatment Not on filedocumented as of this encounter Visit Diagnoses Not on filedocumented in this encounter Additional Health Concerns Assessment Noted Time PHQ-9 Depression Total Score: 11 10/28/2018 2:28 PM CD T documented as of this encounter Care Teams Turn Machine Operator Relationship Specialty Start Date End Date Fausto Good P.A.-C. PCP - General 07/25/16 [address] [place] [phone] documented as of this encounter
--- OUTSIDE RECORDS SUMMARY | 2022-01-23 07:16 | XMS_ITS | Encounter Summary ---
:1965 Author Organization [facility] Address [address] [place] [address] Care Team Providers Name Role Phone Fausto Good P.A.-C. Primary Care Provider [phone] Encounter Details Date Type Department Care Team Description 08/23/2020 Hospital Encounter Department of Arabella Good' Hyperthyroidism; Laboratory Medicine Zahra Lambert Hypertension Essential Primary; in [address] [facility] [address] [place], [place] [phone] [phone] (Work) [phone] Social History Tobacco Use Types Packs/Day Years [...] or relatives? How often do you attend restorationist or Never 2021 hoahaoism services? Do you belong to any clubs or No 02/16/2021 organizations such as restorationist groups, unions, fraternal or athletic groups, or [...] to pay for the very basics like [employer] hat hard 02/16/2021 food, housing, medical care, [...] place to sleep or slept in a chcf (including now)? Education Answer Date Recorded What is the highest level of school you have Some college, n o degree 09/27/2018 completed or the highest degree you have received? Sex Assigned at Date Recorded Female 10/01/2017 7:47 AM CDT documented as of this encounter Medications at Time of Discharge Medication Sig Dispensed Refills Start Date End Date amLODIPine (NORVASC) 10 Take 1 tablet (10 mg 90 tablet 3 08/25/2020 mg tablet total) by mouth daily. cyclobenzaprine Take 1 tablet (10 mg 30 tablet 11 09/30/2019 03/21/2021 (FLEXERIL) 10 mg tablet total) by mouth 3 (three) times a day as needed for muscle spasms. EPINEPHrine (EPIPEN) Inject 0.3 mL (0.3 mg 1 each 1 10/1108/25/2020 0.3 mg/0.3 mL injection total) intramuscularly syringe as needed for anaphylaxis. Inject into the thigh. levothyroxine Take 1 tablet (100 mcg 30 tablet 0 07/06/2020 08/25/2020 (SYNTHROID, LEVOTHROID) total) by mouth every 100 mcg tablet morning before breakfast. lisinopril-hydroCHLOROt Take 1 tablet by mouth 90 tablet 3 09/30/2019 08/25/2020 hiazide daily. (PRINZIDE,ZESTORETIC) 20-25 mg per tablet documented as of this encounter Plan of Treatment Not on filedocumented as of this encounter Procedures Procedure Name Priority Date/Time Associated Diagnosis Comme nts THYROID-STIMULATING Routine 08/23/2020 11:02 AM Graves' R esults for this HORMONE-SENSITIVE CDT Hyperthyroidis m procedure are in (S-TSH) Hypertension the results Essential Primar y section. Fatigue BASIC METABOLIC Routine 08/23/2020 11:02 AM Graves' Resul ts for this PANEL, S/P CDT Hyperthyroidism procedure are in Hypertension the results Essential Primar y section. Fatigue documented in this encounter Results (ABNORMAL) S-TSH (Thyroid-Stimulating Hormone - Sensitive) (08/23/2020 11:02 AM CDT) athologist Signature TSH, Sensitive 4.7 (H) 0.3 - 4.2 08/23/2020 [place] mIU/L 1:54 PM CDT Specimen Anatomical Collection Method Collection Time Receive d Time (Source) Location / / Volume Laterality Blood (Blood, 08/23/2020 11:02 08/23/2020 1:23 Venous) AM CDT PM CDT Fausto Good P.A.-C. LAB BLOOD ADD-ON Performing Organization Address City/State/ZIP Code Phon e Number [facility] [address] [place] [address] [place] [address] System in [place] [address] [facility] (ABNORMAL) Basic Metabolic Panel (08/23/2020 11:02 AM CDT) athologist Signature Potassium, P 5.3 (H) 3.6 - 5.2 08/23/2020 [place] mmol/L 1:44 PM CDT Sodium, P 139 135 - 145 08/23/2020 [place] mmol/L 1:44 PM CDT Chloride, P 103 98 - 107 08/23/2020 [place] mmol/L 1:44 PM CDT Bicarbonate, P 27 22 - 29 08/23/2020 [place] mmol/L 1:44 PM CDT Anion Gap, P 9 7 - 15 08/23/2020 [place] 1:44 PM CDT BUN (Blood Urea 25 (H) 6 - 21 08/23/2020 [place] Nitrogen), P mg/dL 1:44 PM CDT Creatinine 0.74 0.59 - 08/23/2020 [place] 1.04 mg/dL 1:44 PM CDT eGFR-Black/Afri >90 >=60 08/23/2020 [place] can [place] mL/min/BSA 1:44 PM CDT Comment: ----ADDITIONAL INFORMATION---- Estimated GFR calculated using the 2009 CKD_EPI creatinine equation. eGFR Non-Black/ >90 >=60 mL/min/BSA 08/23/2020 1:44 PM CDT [facility] Comment: ----ADDITIONAL INFORMATION---- Estimated GFR calculated using the 2009 CKD_EPI creatinine equation. Calcium, Total, P 9.8 8.6 - 10.0 mg/dL 08/23/2020 1:44 PM CDT [place] Glucose, P 109 70 - 140 mg/dL 08/23/2020 1:44 PM CDT O SOPHIA Specimen Anatomical Collection Method Collection Time Receive d Time (Source) Location / / Volume Laterality Blood (Blood, 08/23/2020 11:02 08/23/2020 1:22 Venous) AM CDT PM CDT Fausto Good P.A.-C. LAB BLOOD ADD-ON Performing Organization Address City/State/ZIP Code Phon e Number [facility] [address] [place] [id number] [facility] [place] [address] System in [place] [address] documented in this encounter Visit Diagnoses Diagnosis Graves' Hyperthyroidism Hypertension Essential Primary Fatigue documented in this encounter Additional Health Concerns Assessment Noted Time PHQ-9 Depression Total Score: 11 10/28/2018 2:28 PM CD T documented as of this encounter Care Teams Track Vehicle Repairer Relationship Specialty Start Date End Date Fausto Good P.A.-C. PCP - General 07/25/16 [address] [place] [phone] documented as of this encounter
[2022-01-23 07:17] LABS: Albumin* 4.2 g/dL (3.3-5.0); Chloride* 104 mmol/L (96-114); Potassium* 3.5 mmol/L (3.6-5.1); Sodium* 138 mmol/L (135-149)
--- OUTSIDE RECORDS SUMMARY | 2022-01-23 07:17 | XMS_ITS | Encounter Summary ---
:1965 Author Organization [facility] Address [address] [place] [address] Care Team Providers Name Role Phone Fausto Good P.A.-C. Primary Care Provider [phone] Reason for Visit Reason Onset Date Comments Outpatient COVID-19 Testing 12/02/2019 Encounter Details Date Type Department Care Team Description 12/02/2019 External Outreach Department of Josiah Rosas Infect ion [facility] Internal Medicine in J, D.O. Respiratory ([place], [place] [address] Dx) [address] [place] [phone] Social History Tobacco Use Types Packs/Day [...] or relatives? How often do you attend baptism or Never 2021 latter day services? Do you belong to any clubs or No 02/16/2021 organizations such as baptism groups, unions, fraternal or athletic groups, or [...] place to sleep or slept in a custodial (including now)? Education Answer Date Recorded What is the highest level of school you have Some college, n o degree 09/27/2018 completed or the highest degree you have received? Sex Assigned at Date Recorded Female 10/01/2017 7:47 AM CDT documented as of this encounter Progress Notes Tootie Sifuentes RFarzanaN. - 12/02/2019 12:08 PM CDT Encounter created for the drive-through COVID-19 testing. documented in this encounter Plan of Treatment Not on filedocumented as of this encounter Procedures Procedure Name Priority Date/Time Associated Diagnosis Comme nts SARS CORONAVIRUS-2 Routine 12/02/2019 12:27 PM Infection Upper Results for this RNA, V CDT Respiratory procedure are i n the results section. documented in this encounter Results SARS Coronavirus-2 RNA, V Symptomatic (12/02/2019 12:27 PM CDT) [facility] Method Time Signature SARS-CoV-2 Swab, 12/03/2019 MKTO Specimen Nasopharynx 1:55 AM CDT Source SARS CoV-2 Undetected Undetected 12/03/2019 MKTO RNA, TMA 1:55 AM CDT Comment: SARS-CoV-2 RNA absent. This result does not rule out COVID-19 in the patient, as the sensitivity of the test depends o n the timing of the specimen collection and the quality of the specim en. Result should be correlated with patient's history and clinical presentat ion. ----ADDITIONAL INFORMATION---- This test is performed using the Aptima SARS-CoV-2 assay ([employer] which has received Emergency Use Authori zation (EUA) by the U.S. Food and Drug Administration. Fact sheets for this Emergency Use Autho rization (EUA) assay can be found at the following links: For Healthcare Providers: https://www.fd a.gov/media/790647/download For Patients: https://www.fda.gov/media/ 468430/download Specimen Anatomical Collection Method Collection Time Receive d Time (Source) Location / / Volume Laterality Varies 12/02/2019 12:27 12/02/2019 7:12 (Nasopharynx) PM CDT PM CDT Josiah Rosas D.O. LAB MICROBIOLOGY - GENERAL O RDERABLES Performing Organization Address City/State/ZIP [facility] Phon e Number [facility] [address] [place] [id number] [place] [address] [place] [address] System in [address] documented in this encounter Visit Diagnoses Diagnosis Infection Upper Respiratory - Primary documented in this encounter Additional Health Concerns Infection Onset Date Last Indicated Resolved Time COVID19 Pending 12/02/2019 12/02/2019 12/03/2019 1:56 AM CDT Assessment Noted Time PHQ-9 Depression Total Score: 11 10/28/2018 2:28 PM CD T documented as of this encounter Care Teams Karate Instructor Relationship Specialty Start Date End Date Fausto Good P.A.-C. PCP - General 07/25/[address] [place] [phone] documented as of this encounter
--- OUTSIDE RECORDS SUMMARY | 2022-01-23 07:17 | XMS_ITS | Encounter Summary ---
:1965 Author Organization [facility] Address [address] [place] [address] Care Team Providers Name Role Phone Fausto Good P.A.-C. Primary Care Provider [phone] Encounter Details Date Type Department Care Team Description 10/14/2019 Orders Only [facility] PCP TH MNT Fausto Good, Screening Mammogram P.A.-C. Breast Cancer [address] [place] [phone] Social History Tobacco Use Types Packs/Day Years [...] or relatives? How often do you attend presybeterian or Never 2021 sabianist services? Do you belong to any clubs or No 02/16/2021 organizations such as presybeterian groups, unions, fraternal or athletic groups, or [...] to pay for the very basics like [employer] hat hard 02/16/2021 food, housing, medical care, [...] documented as of this encounter Care Teams Yarder Engineer Relationship Specialty Start Date End Date Fausto Good P.A.-C. PCP - General 07/25/[address] [place] [phone] documented as of this encounter
--- OUTSIDE RECORDS SUMMARY | 2022-01-23 07:17 | XMS_ITS | Encounter Summary ---
:1965 Author Organization [facility] Address [address] [place] [address] Care Team Providers Name Role Phone Fausto Good P.A.-C. Primary Care Provider [phone] Encounter Details Date Type Department Care Team Description 02/15/2019 Orders Only Division of Endocrinology in [facility] ifeoma Rosetta Casey [place], [place] [address] [place] [address] Social History Tobacco Use Types Packs/Day Years [...] do you attend voodoo or Never 2021 worship services? Do you belong to any clubs [...] place to sleep or slept in a senior living (including now)? Education Answer Date Recorded What [...] documented as of this encounter Care Teams Nutritional Chemist Relationship Specialty Start Date End Date Fausto Good P.A.-C. PCP - General 07/25/[address] [place] [phone] documented as of this encounter
--- OUTSIDE RECORDS SUMMARY | 2022-01-23 07:17 | XMS_ITS | Encounter Summary ---
:1965 Author Organization [facility] Address [address] [place] [address] Care Team Providers Name Role Phone Fausto Good P.A.-C. Primary Care Provider [phone] Encounter Details Date Type Department Care Team Description 04/16/2019 Hospital Encounter Department of Arabella Conroy' Hyperthyroidism Laboratory Medicine Latrice Black and Pathology, [address] [place] [address] in [facility] [phone] [place] [phone] [place] [address] (Work) [place], [place] [phone] (Fax) [phone] Social History Tobacco Use Types Packs/Day Years [...] or relatives? How often do you attend adventist or Never 2021 yazidi services? Do you belong to any clubs or No 02/16/2021 organizations such as adventist groups, unions, fraternal or athletic groups, or [...] 1 tablet (10 mg 90 tablet 3 04/10/2020 mg tablet total) by mouth daily. cyclobenzaprine Take 1 tablet (10 mg 30 tablet 11 10/28/2018 09/30/2019 (FLEXERIL) 10 mg tablet total) by mouth 3 (three) times a day as needed for muscle spasms. EPINEPHrine (EPIPEN) Inject 0.3 mL (0.3 mg 1 each 1 10/1108/25/2020 0.3 mg/0.3 mL injection total) intramuscularly syringe as needed for anaphylaxis. Inject into the thigh. levothyroxine Take 1 tablet (100 mcg 90 tablet 3 02/15/2019 02/07/2020 (SYNTHROID, LEVOTHROID) total) by mouth every 100 mcg tablet morning before breakfast. propranolol (INDERAL) Take 0.5 tablets (10 0 07/201908/23/2019 20 mg tablet mg total) by mouth 3 (three) times a day. documented as of this encounter Plan of Treatment Not on filedocumented as of this encounter Procedures Procedure Name Priority Date/Time Associated Diagnosis Comme nts THYROID-STIMULATIN Routine 07/13/2019 1:30 PM Graves' Hyperthy roidism Results for this G CDT procedure are i n HORMONE-SENSITIVE the result s (S-TSH) section. T4 (THYROXINE), Routine 07/13/2019 1:30 PM Graves' Hyperthyroi dism Results for this FREE, S CDT procedure are i n the results section. documented in this encounter Results S-TSH (Thyroid-Stimulating Hormone - Sensitive) (07/13/2019 1:30 PM CDT) athologist Signature TSH, Sensitive 1.0 0.3 - 4.2 07/15/2019 DT mIU/L 7:03 PM CDT Specimen Anatomical Collection Method Collection Time Receive d Time (Source) Location / / Volume Laterality Blood (Blood, 07/13/2019 1:30 PM 07/15/19 20 Venous) CDT 11:13 AM CDT Resulting Agency Comment Mailed In Specimen Sofia Conroy M.D. LAB BLOOD ADD-ON Performing Organization Address [facility] Phon e Number [facility] - [id number] [place] [address] T4 (Thyroxine), Free (07/13/2019 1:30 PM CDT) athologist Signature T4 (Thyroxine), 1.3 0.9 - 1.7 07/15/2019 DT Free, S ng/dL 7:03 PM CDT Specimen Anatomical Collection Method Collection Time Receive d Time (Source) Location / / Volume Laterality Blood (Blood, 07/13/2019 1:30 PM 07/15/19 20 Venous) CDT 11:13 AM CDT Resulting Agency Comment Mailed In Specimen Sofia Conroy M.D. LAB BLOOD ADD-ON Performing Organization Address [facility] Phon e Number [facility] - [phone] [place] [address] documented in this encounter Visit Diagnoses Diagnosis Graves' Hyperthyroidism documented in this encounter Additional Health Concerns Assessment Noted Time PHQ-9 Depression Total Score: 11 10/28/2018 2:28 PM CD T documented as of this encounter Care Teams Strategies Analyst Relationship Specialty Start Date End Date Fausto Good P.A.-C. PCP - General 07/25/[address] [place] [phone] documented as of this encounter
--- OUTSIDE RECORDS SUMMARY | 2022-01-23 07:17 | XMS_ITS | Encounter Summary ---
:1965 Author Organization [facility] Address [address] [place] [address] Care Team Providers Name Role Phone Fausto Good P.A.-C. Primary Care Provider [phone] Encounter Details Date Type Department Care Team Description 01/04/2019 Hospital Encounter Department of Mulu Good Laboratory Medicine eduardo Lambert P.A.-C. [place] [address] [facility] [address] [place] [phone] Social History Tobacco Use Types Packs/Day Years [...] do you attend protestant or Never 2021 mormonism services? Do you [...] to pay for the very basics like [employer] hat hard 02/16/2021 food, housing, medical care, [...] place to sleep or slept in a residential (including now)? Education Answer Date Recorded What is the highest level of school you have Some college, n o degree 09/27/2018 completed or the highest degree you have received? Sex Assigned at Date Recorded Female 10/01/2017 7:47 AM CDT documented as of this encounter Medications at Time of Discharge Medication Sig Dispensed Refills Start Date End Date amLODIPine (NORVASC) 5 Take 1 tablet (5 mg 90 tablet 3 10/1102/15/2019 mg tablet total) by mouth daily. cyclobenzaprine Take 1 tablet (10 mg 30 tablet 11 10/28/2018 09/30/2019 (FLEXERIL) 10 mg total) by mouth 3 tablet (three) times a day as needed for muscle spasms. EPINEPHrine (EPIPEN) Inject 0.3 mL (0.3 mg 1 each 1 10/1108/25/2020 0.3 mg/0.3 mL total) intramuscularly injection syringe as needed for anaphylaxis. Inject into the thigh. ergocalciferol 1 cps 2 days this week 16 capsule 2 9 02/15/2019 (DRISDOL) 50,000 Unit repeat next week x 8 capsule weeks levothyroxine Take 1 tablet (125 mcg 90 tablet 3 12/24/2018 02/15/2019 (SYNTHROID, total) by mouth every LEVOTHROID) 125 mcg morning before tablet breakfast. propranolol (INDERAL) Take 1 tablet (20 mg 0 11/1102/15/2019 20 mg tablet total) by mouth 3 (three) times a day. documented as of this encounter Plan of Treatment Not on filedocumented as of this encounter Procedures Procedure Name Priority Date/Time Associated Diagnosis Comme nts T4 (THYROXINE), Routine 01/01/2019 4:41 AM Graves' Hyperthyroi dism Results for this FREE, S LEVEL VIAL INSPECTOR procedure are i n the results section. documented in this encounter Results T4 (Thyroxine), Free (01/01/2019 4:41 AM LEVEL VIAL INSPECTOR) P athologist Signature T4 (Thyroxine), 1.7 0.9 - 1.7 01/04/2019 [place] Free, S ng/dL 11:19 AM LEVEL VIAL INSPECTOR Comment: Biotin has been identified by the lazarus singh as a potential interfering substance. ??Higher concentr ations of biotin may be found in multivitamins, hair/nail supple ments, and workout supplements. ??If the result does not [facility] clinical observations, repeat testing after patient refrains fr om the use of supplements for at least 12 hours. Specimen Anatomical Collection Method Collection Time Receive d Time (Source) Location / / Volume Laterality Blood (Blood, 01/01/2019 4:41 AM 01/05/20 19 9:57 Venous) LEVEL VIAL INSPECTOR AM LEVEL VIAL INSPECTOR Fausto Good P.A.-C. LAB BLOOD ADD-ON Performing Organization Address City/State/ZIP Code Phon e Number [facility]- [address] [place] [phone] [place] [address] System in [place] [address] documented in this encounter Visit Diagnoses Diagnosis Graves' Hyperthyroidism documented in this encounter Additional Health Concerns Assessment Noted Time PHQ-9 Depression Total Score: 10/28/2018 2:28 PM CD T documented as of this encounter Care Teams Neon Glass Blower Relationship Specialty Start Date End Date Fausto Good P.A.-C. PCP - General 07/25/16 [address] [place] [phone] documented as of this encounter
--- OUTSIDE RECORDS SUMMARY | 2022-01-23 07:17 | XMS_ITS | Encounter Summary ---
:1965 Author Organization [facility] Address [address] [place] [address] Care Team Providers Name Role Phone Fausto Good P.A.-C. Primary Care Provider [phone] Encounter Details Date Type Department Care Team Description 08/23/2019 Orders Only Department of Family Nanci Sanabria APR N, Medicine, [facility], C.N. P. in [facility] [address] [place] [phone] [place] [address] [phone] Social History Tobacco Use Types Packs/Day Years [...] or relatives? How often do you attend buddhism or Never 2021 zoroastrianism services? Do you belong to any clubs or No 02/16/2021 organizations such as buddhism groups, unions, fraternal or athletic groups, or [...] to pay for the very basics like [employer] hat hard 02/16/2021 food, housing, medical care, [...] documented as of this encounter Care Teams Livestock Broker Relationship Specialty Start Date End Date Fausto Good P.A.-C. PCP - General 07/25/[address] [place] [phone] documented as of this encounter
--- OUTSIDE RECORDS SUMMARY | 2022-01-23 07:17 | XMS_ITS | Encounter Summary ---
:1965 Author Organization [facility] Address [address] [place] [address] Care Team Providers Name Role Phone Fausto Good P.A.-C. Primary Care Provider [phone] Reason for Visit Appointment Request (Routine) - Closed Specialty Diagnoses / Procedures Referred By Contact Refer red To Contact Family Medicine Referral ID Status Reason Start Date Expiration Date Visits Requ ested Visits Authorized [id number] Closed 07/12/2019 07/11/2020 1 1 Encounter Details Date Type Department Care Team Description 07/13/2019 Hospital Encounter Department of Fausto Good Gra ves' Disease Laboratory Medicine in [place], [place] [address] [facility] [address] [place] [phone] Social History Tobacco Use Types Packs/Day Years [...] or relatives? How often do you attend christian or Never 2021 latter day services? Do you belong to any clubs or No 02/16/2021 organizations such as christian groups, unions, fraternal or athletic groups, or [...] to sleep or slept in a senior care (including now)? Education Answer Date Recorded What [...] Treatment Scheduled Orders Name Type Priority Associated Diagnoses Order S luisdule Kit Collection Lab Routine Graves' Disease Once for 1 Occurrences starting 07/13/2019 unti l 07/13/2019 documented as of this encounter Visit Diagnoses Diagnosis Graves' Disease documented in this encounter Additional Health Concerns Assessment Noted Time PHQ-9 Depression Total Score: 11 10/28/2018 2:28 PM CD T documented as of this encounter Care Teams Market Research Consultant Relationship Specialty Start Date End Date Fausto Good P.A.-C. PCP - General 07/25/[address] [place] [phone] documented as of this encounter
--- OUTSIDE RECORDS SUMMARY | 2022-01-23 07:17 | XMS_ITS | Encounter Summary ---
:1965 Author Organization [facility] Address [address] [place] [address] Care Team Providers Name Role Phone Fausto Good P.A.-C. Primary Care Provider [phone] Reason for Visit Reason Comments Medication review After surgery Appointment Request (Routine) - Closed Specialty Diagnoses / Procedures Referred By Contact Refer red To Contact Family Medicine Referral ID Status Reason Start Date Expiration Date Visits Requ ested Visits Authorized [id number] Closed 12/28/2018 12/28/2019 1 1 Encounter Details Date Type Department Care Team Description 01/01/2019 Office Visit Department of Family Latisha Graves' Hyperthyroidism (Primary Dx); Medicine, [place] Zahra Lambert [facility], in [address] [place] [phone] [place], [place] [phone] (Work) [phone] Social History Tobacco Use Types Packs/Day Years [...] do you attend mormonism or Never 2021 catholic services? Do you [...] Sign Reading Time Taken Comments Blood Pressure 128/80 01/01/2019 7:59 AM HAND I TUBE BENDER Pulse 74 01/01/2019 7:59 AM HAND I TUBE BENDER Temperature 36.2 ??C (97.2 ??F) 01/01/2019 7:59 AM HAND I TUBE BENDER Respiratory Rate 20 01/01/2019 7:59 AM HAND I TUBE BENDER Oxygen Saturation - - Inhaled Oxygen Concentration - - Weight 76.9 kg (169 lb 8.5 oz) 01/01/2019 7:59 AM HAND I TUBE BENDER Height - - Body Mass Index 31.2 11/30/2018 9:50 AM CDT documented in this encounter Progress Notes Fausto Good P.A.-C. - 01/01/2019 8:00 AM CST CHIEF COMPLAINT / REASON FOR VISIT Hannah Kahn is a 53 y.o. female who presents for evaluation of Medication review (After surgery). HISTORY OF PRESENT ILLNESS Hannah presents today for follow-up of her recent surgical procedure. She had a thyroidectomy secondary to Graves hyperthyroidism. Postoperatively she has done well she has been fatigued but overall she is feeling well. Her blood pressure has been better controlled she would like to wean off of her propranolol. She needs to have her TSH checked as well. She has a follow-up with endocrinology after the 1st of the year. OBJECTIVE Vitals: 01/01/19 0759 BP: 128/80 BP Location: Right arm Patient Position: Sitting Cuff Size: Large Pulse: 74 Resp: 20 Temp: 36.2 ??C TempSrc: Temporal Weight: 76.9 kg Body mass index is 31.2 kg/m??. PHYSICAL EXAM In general she appears in no acute distress Neck: Her surgical scar is healing nicely overall it looks good she is feeling well. Heart: Regular rate rhythm no murmurs Lungs: Clear to auscultation IMPRESSION / REPORT / PLAN #1 Graves' Hyperthyroidism She is doing well postoperatively I will check a TSH today as well as a metabolic panel. Will treat as necessary. Follow-up as scheduled with endocrinology #2 Hypertension Essential Primary Blood pressure is well controlled today she would like to wean off the propranolol. Will continue onthe amlodipine for now we will drop her propranolol to 20 mg once daily for a week and then discontinue it if her blood pressures are higher than 130/80 on average we should restart something else or adjust her amlodipine. She is in agreement with this plan will let us know. Total time spent with her was 25 minutes of which 15 was tymg-ax-cnst coordination of care and counseling Fausto Good P.A.-C. I TUBE BENDER documented in this encounter Miscellaneous Notes Result Encounter Note - Analilia Medina L.P.N. - 01/04/2019 11:57 AM HAND I TUBE BENDER Name of person contacted: Patient Relationship to patient: Not applicable Call back number: [phone] Breakfast Manager: Not applicable Information provided: Patient notified of results and recommendations as listed above by JASON Ma chain person/patient received and understood education/information provided: Yes chain person/patient agreed to the Plan of Care: Yes I TUBE BENDER documented in this encounter Plan of Treatment Not on filedocumented as of this encounter Procedures Procedure Name Priority Date/Time Associated Diagnosis Comme nts THYROID-STIMULATING Routine 01/01/2019 8:41 AM Graves' Re sults for this HORMONE-SENSITIVE HAND I TUBE BENDER Hyperthyroidis m procedure are in (S-TSH) Hypertension the results Essential Primary section. BASIC METABOLIC Routine 01/01/2019 8:41 AM Graves' Result s for this PANEL, S/P HAND I TUBE BENDER Hyperthyroidism procedure are in Hypertension the results Essential Primary section. documented in this encounter Results (ABNORMAL) S-TSH (Thyroid-Stimulating Hormone - Sensitive) (01/01/2019 8:41 AM HAND I TUBE BENDER) Analysis Performed At Patho logist Time Signature TSH, Sensitive <0.01 (L) 0.3 - 4.2 01/01/2019 [place] mIU/L 11:38 AM HAND I TUBE BENDER Comment: Biotin has been identified by the lazarus singh as a potential interfering substance. ??Higher concentr ations of biotin may be found in multivitamins, hair/nail supple ments, and workout supplements. ??If the result does not [facility] clinical observations, repeat testing after patient refrains fr om the use of supplements for at least 12 hours. Specimen Anatomical Collection Method Collection Time Receive d Time (Source) Location / / Volume Laterality Blood (Blood, 01/01/2019 8:41 AM 01/02/20 19 Venous) HAND I TUBE BENDER 11:37 AM HAND I TUBE BENDER Fausto Good P.A.-C. LAB BLOOD ADD-ON Performing Organization Address City/State/ZIP Code Phon e Number [facility] [address] [place] [address] [place] [address] System in [place] [address] (ABNORMAL) Basic Metabolic Panel (01/01/2019 8:41 AM HAND I TUBE BENDER) P athologist Signature Potassium, S 4.6 3.6 - 5.2 01/01/2019 [place] mmol/L 11:53 AM HAND I TUBE BENDER Sodium, S 142 135 - 145 01/01/2019 [place] mmol/L 11:53 AM HAND I TUBE BENDER Chloride, S 103 98 - 107 01/01/2019 [place] mmol/L 11:53 AM HAND I TUBE BENDER Bicarbonate, S 28 22 - 29 01/01/2019 [place] mmol/L 11:53 AM HAND I TUBE BENDER Anion Gap 11 7 - 15 01/01/2019 [place] 11:53 AM HAND I TUBE BENDER BUN (Blood Urea 17 6 - 21 01/01/2019 [place] Nitrogen), S mg/dL 11:53 AM HAND I TUBE BENDER Creatinine 0.61 0.59 - 01/01/2019 [place] 1.04 mg/dL 11:53 AM HAND I TUBE BENDER eGFR-Non >90 >=60 01/01/2019 [place] Black/ mL/min/BSA 11:53 AM HAND I TUBE BENDER Tristanian Comment: ----ADDITIONAL INFORMATION---- Estimated GFR calculated using the 2009 CKD_EPI creatinine equation. eGFR-Black/ >90 >=60 mL/min/BSA 2018 11:53 AM HAND I TUBE BENDER [place] Comment: ----ADDITIONAL INFORMATION---- Estimated GFR calculated using the 2009 CKD_EPI creatinine equation. Calcium, Total, S 9.6 8.6 - 10.0 mg/dL 01/01/2019 11:5 3 AM HAND I TUBE BENDER [place] Glucose, S 148 (H) 70 - 140 mg/dL 01/01/2019 11:53 AM HAND I TUBE BENDER [place] Specimen Anatomical Collection Method Collection Time Receive d Time (Source) Location / / Volume Laterality Blood (Blood, 01/01/2019 8:41 AM 01/02/20 19 Venous) HAND I TUBE BENDER 11:37 AM HAND I TUBE BENDER Fausto Good P.A.-C. LAB BLOOD ADD-ON Performing Organization Address City/State/ZIP Code Phon e Number [facility] [address] [place] [address] [place] [address] System in [place] [address] documented in this encounter Visit Diagnoses Diagnosis Graves' Hyperthyroidism - Primary Hypertension Essential Primary documented in this encounter Additional Health Concerns Assessment Noted Time PHQ-9 Depression Total Score: 11 10/28/2018 2:28 PM CD T documented as of this encounter Care Teams Tentering Machine Feeder Relationship Specialty Start Date End Date Fausto Good P.A.-C. PCP - General 07/25/[address] [place] [phone] documented as of this encounter
--- OUTSIDE RECORDS SUMMARY | 2022-01-23 07:17 | XMS_ITS | Encounter Summary ---
:1965 Author Organization [facility] Address [address] [place] [address] Care Team Providers Name Role Phone Fausto Good P.A.-C. Primary Care Provider [phone] Reason for Visit Reason Comments Med Refill Encounter Details Date Type Department Care Team Description 02/07/2020 Refill Division of Endocrinology in Sofia Dudley M.D. Med Refill [place], [place] [address] [place] [address] [address] [place] [phone] (Wo rk) Social History Tobacco Use Types [...] do you attend christianity or Never 2021 buddhism services? Do you belong to any clubs [...] documented as of this encounter Care Teams Draw Frame Runner Relationship Specialty Start Date End Date Fausto Good P.A.-C. PCP - General 07/25/[address] [place] [phone] documented as of this encounter
--- OUTSIDE RECORDS SUMMARY | 2022-01-23 07:17 | XMS_ITS | Encounter Summary ---
:1965 Author Organization [facility] Address [address] [place] [address] Care Team Providers Name Role Phone Fausto Good P.A.-C. Primary Care Provider [phone] Reason for Visit Reason Comments Establish Care Outpatient (Routine) - Closed Specialty Diagnoses / Procedures Referred By Contact Refer red To Contact Endocrinology Diagnoses Graves' Hyperthyroidism Sofia Conroy M.D. [facility] [address] [place] [address] Referral ID Status Reason Start Date Expiration Date Visits Requ ested Visits Authorized [id number] Closed 12/04/2018 12/04/2019 1 1 Encounter Details Date Type Department Care Team Description 02/15/2019 Office Visit Division of Mulu Conroy Hyperth yroidism Endocrinology in Latrice Black [place], [place] [address] [place] [address] [address] [place] [phone] Social History Tobacco Use Types Packs/Day Years [...] do you attend christianity or Never 2021 orthodox services? Do you belong to any clubs or No 02/16/2021 organizations such as christianity groups, unions, [employer] or athletic groups, or school groups? How [...] Sign Reading Time Taken Comments Blood Pressure 161/90 02/15/2019 2:36 PM DIRECTOR PHYSICAL THERAPY Pulse 65 02/15/2019 2:36 PM DIRECTOR PHYSICAL THERAPY Temperature - - Respiratory Rate - - Oxygen Saturation - - Inhaled Oxygen Concentration - - Weight 78.2 kg (172 lb 6.4 oz) 02/15/2019 2:36 PM DIRECTOR PHYSICAL THERAPY Height 159 cm (5' 2.6) 02/15/2019 2:36 PM DIRECTOR PHYSICAL THERAPY Body Mass Index 30.93 02/15/2019 2:36 PM DIRECTOR PHYSICAL THERAPY documented in this encounter Progress Notes Sofia Conroy M.D. - 02/15/2019 2:30 PM CST SUBJECTIVE CHIEF COMPLAINT/REASON FOR VISIT Status post thyroidectomy for resistant Graves' disease. HISTORY OF PRESENT ILLNESS Patient had surgery by Dr. Shah in November 2018. This was not complicated. Her scar is healing well. Patient is on levothyroxine 125 mcg. She feels more fatigued but had resolutions of tremors, shaking, and palpitations. She continues to have problems with blood pressure, which her primary did not addres s at this point. She is still on propranolol 20 mg 3 times a day and running out of Norvasc 5 mg a day. She has no signs of ophthalmopathy. After 10 weeks on the current dose of levothyroxine, a free thyroxine is 1.6, TSH is 0.06. OBJECTIVE PHYSICAL EXAMINATION Neck: Well-healed surgical scar over neck. Eyes: No evidence of Graves' ophthalmopathy. Vital Signs: Height 159, weight 78, pulse 65, blood pressure 161/90. ASSESSMENT / PLAN #1 Exogenous hyperthyroidism I recommend patient decreases the levothyroxine to 100 mcg a day and a mail-in TSH is obtained in about 2-3 months. #2 Hypertension This is significant, and I will increase patient's amlodipine to 10 mg a day. As she has profound fatigue, propranolol might play a role here, so she will taper down the medication to half tablet 3 times a day for a week and then discontinue it. I suspect she will need an additional antihypertensive agent, and this needs to be followed by her primary physician to add perhaps diuretic if blood pressure is not satisfactory. Patient agrees with the plan. Sofia Conroy M.D. CT CT Job ID: [id number]/carolina CTOR PHYSICAL THERAPY documented in this encounter Plan of Treatment Not on filedocumented as of this encounter Results S-TSH (Thyroid-Stimulating Hormone - Sensitive) (07/13/2019 1:30 PM CDT) P athologist Signature TSH, Sensitive 1.0 0.3 - 4.2 07/15/2019 DTL mIU/L 7:03 PM CDT Specimen Anatomical Collection Method Collection Time Receive d Time (Source) Location / / Volume Laterality Blood (Blood, 07/13/2019 1:30 PM 07/15/19 20 Venous) CDT 11:13 AM CDT Resulting Agency Comment Mailed In Specimen Sofia Conroy M.D. LAB BLOOD ADD-ON Performing Organization Address City/State/ZIP Code Phon e Number [facility] - [address] [place], [place] [address] [place] [address] T4 (Thyroxine), Free (07/13/2019 1:30 PM CDT) P athologist Signature T4 (Thyroxine), 1.3 0.9 - 1.7 07/15/2019 DTL Free, S ng/dL 7:03 PM CDT Specimen Anatomical Collection Method Collection Time Receive d Time (Source) Location / / Volume Laterality Blood (Blood, 07/13/2019 1:30 PM 07/15/19 20 Venous) CDT 11:13 AM CDT Resulting Agency Comment Mailed In Specimen Sofia Conroy M.D. LAB BLOOD ADD-ON Performing Organization Address [facility] Phon e Number [facility] [address] [place], [place] [address] [place] [phone] [place] [address] documented in this encounter Visit Diagnoses Diagnosis Graves' Hyperthyroidism documented in this encounter Additional Health Concerns Assessment Noted Time PHQ-9 Depression Total Score: 11 10/28/2018 2:28 PM CD T documented as of this encounter Care Teams Physical Therapy Coordinator Relationship Specialty Start Date End Date Fausto Good P.A.-C. PCP - General 07/25/[address] [place] [phone] documented as of this encounter
--- OUTSIDE RECORDS SUMMARY | 2022-01-23 07:17 | XMS_ITS | Encounter Summary ---
:1965 Author Organization [facility] Address [address] [place] [address] Care Team Providers Name Role Phone Fausto Godo P.A.-C. Primary Care Provider [phone] Reason for Visit Reason Comments Hypertension Outpatient (Routine) - Closed Specialty Diagnoses / Procedures Referred By Contact Refer red To Contact Fausto Good P. A.-C. [facility] [address] [place] [address] Referral ID Status Reason Start Date Expiration Date Visits Requ ested Visits Authorized [id number] Closed 06/28/2019 06/27/2020 1 1 Encounter Details Date Type Department Care Team Description 08/26/2019 Nurse Only Department of Family Onelia Good P.A.-C. [address] [place] [phone] Hypertension Medicine, [facility], Anaid Regalado, RFarzanaNFarzana in [address] [phone] Social History Tobacco Use Types Packs/Day Years [...] or relatives? How often do you attend pentecostal or Never 2021 gnosticist services? Do you belong to any clubs or No 02/16/2021 organizations such as pentecostal groups, unions, fraternal or athletic groups, or [...] Sign Reading Time Taken Comments Blood Pressure 146/76 08/26/2019 1:25 PM CDT Pulse 72 08/26/2019 1:25 PM CDT Temperature - - Respiratory Rate - - Oxygen Saturation 98% 08/26/2019 1:25 PM CDT Inhaled Oxygen Concentration - - Weight - - Height - - Body Mass Index - - documented in this encounter Progress Notes Anaid Regalado, R.N. - 08/26/2019 1:15 PM CDT The patient is seen today for an blood pressure measurement. The patient is taking their blood pressure medication as prescribed. The patient brought no home readings with them today The patient states they are currently having the following symptoms:patient states that she has had a slight headache but it is not constant. States that last week she noticed her blood vessels were shot. States that she has been under a lot of stress at work. Based on today's readings: The provider will be notified of today's visit and the patient was dismissed. documented in this encounter Plan of Treatment Not on filedocumented as of this encounter Visit Diagnoses Diagnosis Hypertension Essential Primary - Primary documented in this encounter Additional Health Concerns Assessment Noted Time PHQ-9 Depression Total Score: 11 10/28/2018 2:28 PM CD T documented as of this encounter Care Teams Probation And Parole Officer Relationship Specialty Start Date End Date Fausto Good P.A.-C. PCP - General 07/25/[address] [place] [phone] documented as of this encounter
--- OUTSIDE RECORDS SUMMARY | 2022-01-23 07:17 | XMS_ITS | Encounter Summary ---
:1965 Author Organization [facility] Address [address] [place] [address] Care Team Providers Name Role Phone Fausto Good P.A.-C. Primary Care Provider [phone] Reason for Referral Outpatient (Routine) - Closed Specialty Diagnoses / Procedures Referred By Contact Refer red To Contact Fausto Good P. A.-C. [facility] [address] [place] [address] Referral ID Status Reason Start Date Expiration Date Visits Requ ested Visits Authorized [id number] Closed 06/28/2019 06/27/2020 1 1 Encounter Details Date Type Department Care Team Description 06/28/2019 Orders Only RST PCP [facility] MNT Vielka Good P.A.-C. [address] [place] [phone] (Wo rk) Social History Tobacco [...] or relatives? How often do you attend gnosticism or Never 2021 restorationism services? Do you belong to any clubs or No 02/16/2021 organizations such as gnosticism groups, unions, fraternal or athletic groups, or [...] Name Type Priority Associated Diagnoses Order S issa Primary Care nurse Outpatient Referral Routine Ex pected: visit (clinic) - 07/12/2019, [facility] Region; Expires: BP check 06/27/2022 documented as of this encounter Visit Diagnoses Not on filedocumented in this encounter Additional Health Concerns Assessment Noted Time PHQ-9 Depression Total Score: 11 10/28/2018 2:28 PM CD T documented as of this encounter Care Teams Client Representative Relationship Specialty Start Date End Date Fausto Good P.A.-C. PCP - General 07/25/16 [address] [place] [phone] documented as of this encounter
--- OUTSIDE RECORDS SUMMARY | 2022-01-23 07:17 | XMS_ITS | Encounter Summary ---
:1965 Author Organization [facility] Address [address] [place] [address] Care Team Providers Name Role Phone Fausto Good P.A.-C. Primary Care Provider [phone] Encounter Details Date Type Department Care Team Description 01/01/2019 Orders Only Department of [facility] Fausto Good, Medicine, [facility], PSerg Jerez in [facility] 225 [facility] [address] [place] [address] [place], [place] [phone] Social History Tobacco Use Types Packs/Day Years [...] or relatives? How often do you attend adventism or Never 2021 mandaen services? Do you belong to any clubs or No 02/16/2021 organizations such as adventism groups, unions, fraternal or athletic groups, or [...] to pay for the very basics like [employer] hat hard 02/16/2021 food, housing, medical care, [...] documented as of this encounter Care Teams Bead Supervisor Relationship Specialty Start Date End Date Fausto Good P.A.-C. PCP - General 07/25/[address] [place] [phone] documented as of this encounter
--- OUTSIDE RECORDS SUMMARY | 2022-01-23 07:17 | XMS_ITS | Encounter Summary ---
:[address] [facility] Address [address] [place] [address] Care Team Providers Name Role Phone Fausto Good P.A.-C. Primary Care Provider [phone] Reason for Referral Outpatient (Routine) - Closed Specialty Diagnoses / Procedures Referred By Contact Refer red To Contact Endocrinology Diagnoses Graves' Hyperthyroidism Sofia Conroy M.D. [facility] [address] [place] [phone] Referral ID Status Reason Start Date Expiration Date Visits Requ ested Visits Authorized [id number] Closed 12/04/2018 12/04/2019 1 1 Encounter Details Date Type Department Care Team Description 12/04/2018 Orders Only Division of Leigh Rajput Graves' Hype rthyroidism Endocrinology in J, R.N. (Primary Dx) [place], [place] [phone] [place] [address] (Work) [place] [address] Social History Tobacco Use Types Packs/Day Years [...] or relatives? How often do you attend quaker or Never 2021 denominational services? Do you belong to any clubs or No 02/16/2021 organizations such as quaker groups, unions, [place] or athletic groups, or school groups? How [...] Name Type Priority Associated Diagnoses Order S [facility] Endocrinology office Outpatient Routine Graves' Expecte d: visit (clinic) Referral Hyperthyroidism 01/12/2019 (Approximate), Expires: 12/04/2021 documented as of this encounter Results T4 (Thyroxine), Free (02/15/2019 11:05 AM ECOMMERCE MARKETING SPECIALIST) P athologist Signature T4 (Thyroxine), 1.6 0.9 - 1.7 02/15/2019 DTL Free, S ng/dL 12:47 PM ECOMMERCE MARKETING SPECIALIST Specimen Anatomical Collection Method Collection Time Receive d Time (Source) Location / / Volume Laterality Blood (Blood, 02/15/2019 11:05 02/15/2019 Venous) AM ECOMMERCE MARKETING SPECIALIST 11:25 AM ECOMMERCE MARKETING SPECIALIST Sofia Conroy M.D. LAB BLOOD ADD-ON Performing Organization Address City/State/ZIP Code Phon e Number [facility] - [address] [place], [place] [address] [place] [address] [facility] [address] [facility] (ABNORMAL) S-TSH (Thyroid-Stimulating Hormone - Sensitive) (02/15/2019 11:05 AM ECOMMERCE MARKETING SPECIALIST) athologist Signature TSH, Sensitive 0.06 (L) 0.3 - 4.2 02/15/2019 DTL mIU/L 12:47 PM ECOMMERCE MARKETING SPECIALIST Specimen Anatomical Collection Method Collection Time Receive d Time (Source) Location / / Volume Laterality Blood (Blood, 02/15/2019 11:05 02/15/2019 Venous) AM ECOMMERCE MARKETING SPECIALIST 11:25 AM ECOMMERCE MARKETING SPECIALIST Sofia Conroy M.D. LAB BLOOD ADD-ON Performing Organization Address City/State/ZIP Code Phon e Number [address] [place] [id number] [place] [address] [address] [facility] documented in this encounter Visit Diagnoses Diagnosis Graves' Hyperthyroidism - Primary documented in this encounter Additional Health Concerns Assessment Noted Time PHQ-9 Depression Total Score: 11 10/28/2018 2:28 PM CD T documented as of this encounter Care Teams Welding Tester Relationship Specialty Start Date End Date Fausto Good P.A.-C. PCP - General 07/25/[address] [place] [phone] documented as of this encounter
--- OUTSIDE RECORDS SUMMARY | 2022-01-23 07:17 | XMS_ITS | Encounter Summary ---
:1965 Author Organization [facility] Address [address] [place] [address] Care Team Providers Name Role Phone Fausto Good P.A.-C. Primary Care Provider [phone] Reason for Referral Outpatient (Routine) - Closed Specialty Diagnoses / Procedures Referred By Contact Refer red To Contact Family Medicine [facility]usto Good P. A.-C. [facility] [address] [address] Referral ID Status Reason Start Date Expiration Date Visits Requ ested Visits Authorized [id number] Closed 09/30/2019 09/29/2020 1 1 Reason for Visit Reason Comments Follow-up labs 09/26 Hypertension Outpatient (Routine) - Closed Specialty Diagnoses / Procedures Referred By Contact Weston chery To Contact Family Medicine Fausto Good P. A.-C. [facility] [address] [address] Referral ID Status Reason Start Date Expiration Date Visits Requ ested Visits Authorized [id number] Closed 08/26/2019 08/25/2020 1 1 Encounter Details Date Type Department Care Team Description 09/30/2019 Office Visit Department of Family Good Graves' Hyperthyroidism (Primary Dx); Tressa Ward P.A. -C. Hypertension Essential Primary; Clinic, in [address] [place] [address] [place] 300 [facility] [address] [place] [phone] (Work) [phone] Social History Tobacco Use Types Packs/Day Years [...] or relatives? How often do you attend moravian or Never 2021 anabaptism services? Do you belong to any clubs or No 02/16/2021 organizations such as moravian groups, unions, fraternal or athletic groups, or [...] Sign Reading Time Taken Comments Blood Pressure 127/76 09/30/2019 10:35 AM CDT Pulse 79 09/30/2019 10:35 AM CDT Temperature 36.6 ??C (97.9 ??F) 09/30/2019 10:35 AM CDT Respiratory Rate 16 09/30/2019 10:35 AM CDT Oxygen Saturation - - Inhaled Oxygen Concentration - - Weight 81.8 kg (180 lb 3.6 oz) 09/30/2019 10:35 AM CDT Height - - Body Mass Index 32.34 02/15/2019 2:36 PM INFORMATICS COORDINATOR documented in this encounter Progress Notes Fausto Good P.A.-C. - 09/30/2019 11:00 AM CDT CHIEF COMPLAINT / REASON FOR VISIT Hannah Kahn is a 54 y.o. female who presents for evaluation of Follow-up (labs 09/26 )and Hypertension. HISTORY OF PRESENT ILLNESS Hannah presents today to discuss her ongoing fatigue. She struggles with fatigue. She works at a job at [employer] and has seemed dissatisfied with her job for quite some time. I have known her forquite a few years and we have discussed this on many of our visits. She has recent hyperthyroidism and this was treated she continues to be on Synthroid and her TSH has been in the normal range. She recently had some hypertension and her propranolol which had previously been discontinued was restarted. This may certainly contribute to her fatigue but she says that the fatigue was still present prior to increasing the propranolol. She is wanting about other treatment options and what else can be doneabout her ongoing fatigue. OBJECTIVE Vitals: 09/30/19 1035 BP: 127/76 BP Location: Right arm Patient Position: Sitting Cuff Size: Large Pulse: 79 Resp: 16 Temp: 36.6 ??C TempSrc: Temporal Weight: 81.8 kg Body mass index is 32.34 kg/m??. PHYSICAL EXAM In general she appears in no acute distress on No further physical exam was done IMPRESSION / REPORT / PLAN #1 Graves' Hyperthyroidism I reviewed her previous endocrinology notes. Overall this has been doing well her TSH is been good Michael going to recheck this in 3 months and I will see her back #2 Hypertension Essential Primary Her blood pressure is well controlled today. I am going to discontinue the propranolol an increase her lisinopril hydrochlorothiazide in hopes that we will get better control of her blood pressure but by decreasing the beta-blockade hopefully improve her energy level #3 Fatigue We had a long discussion about her fatigue. If her blood pressure is well controlled and her TSH is normal when I see her back I do think we should address her mental health as a possible cause for herfatigue. She is in agreement with this plan will discuss it when I see her back. If she has any questions or problems in the meantime she will let us know. Total time spent with her was 25 minutes of which 15 was [id number] coordination of care and counseling Fausto Good P.A.-C. documented in this encounter Plan of Treatment Scheduled Referrals Name Type Priority Associated Diagnoses Order S [facility] Medicine Outpatient Referral Routine Expec brea: office visit 12/31/2019 (clinic) (Approximate), Expires: 09/29/2022 documented as of this encounter Results (ABNORMAL) S-TSH (Thyroid-Stimulating Hormone [...] Organization Address City/State/ZIP Code Phon e Number [facility] [address] [place] [address] [place] [address] System in [place] [address] (ABNORMAL) Basic Metabolic Panel (08/23/2020 11:02 AM [...] CDT eGFR-Black/Afri >90 >=60 08/23/2020 [place] can Cameroonian mL/min/BSA 1:44 PM CDT Comment: ----ADDITIONAL INFORMATION---- [...] Organization Address City/State/ZIP Code Phon e Number [facility]- [address] [place] [address] [place] [address] System in [place] [address] documented in this encounter Visit Diagnoses Diagnosis Graves' Hyperthyroidism - Primary Hypertension Essential Primary Fatigue documented in this encounter Additional Health Concerns Assessment Noted Time PHQ-9 Depression Total Score: 11 10/28/2018 2:28 PM CD T documented as of this encounter Care Teams Animal Shelter Supervisor Relationship Specialty Start Date End Date Fausto Good P.A.-C. PCP - General 07/25/[address] [place] [phone] documented as of this encounter
--- OUTSIDE RECORDS SUMMARY | 2022-01-23 07:17 | XMS_ITS | Encounter Summary ---
:1965 Author Organization [facility] Address [address] [place] [address] Care Team Providers Name Role Phone Fausto Good P.A.-C. Primary Care Provider [phone] Encounter Details Date Type Department Care Team Description 07/12/2019 Clinical Communication Department of [facility] Fausto Good [facility], Mariela Gerardo [facility], in [address] [address] [place], [place] [phone] [address] (Work) [phone] Social History Tobacco Use Types Packs/Day Years [...] or relatives? How often do you attend episcopalian or Never 2021 sabianist services? Do you belong to any clubs or No 02/16/2021 organizations such as episcopalian groups, unions, fraternal or athletic groups, or [...] to pay for the very basics like interspireSubmitw hat hard 02/16/2021 food, housing, medical care, [...] Notes Telephone Encounter - Elvia Crooks - 07/12/2019 2:01 PM CDT 1. Do you have a pending COVID test because you had symptoms or exposure to someone with COVID or you have tested positive for COVID in the last 30 days? no 2. In the past 14 days, do you, anyone in the household, or anyone you have had prolonged exposure have any of the following? a. Fever = 38.0 C (100.5 F) lasting 24 hours? no b. New symptoms (Specifically: headache, cough, shortness of breath, respiratory distress, sore throat, diarrhea, nausea, vomiting, chills and repeated shaking with chills, myalgia's (muscle aches), loss of smell, or change or loss of taste sensation)? no c. Had close contact with a patient with known or possible COVID-19 in the last 14 days? no Route reply to: Scheduling Contact Number: [phone] documented in this encounter Plan of Treatment Not on filedocumented as of this encounter Visit Diagnoses Not on filedocumented in this encounter Additional Health Concerns Assessment Noted Time PHQ-9 Depression Total Score: 11 10/28/2018 2:28 PM CD T documented as of this encounter Care Teams Space Sciences Director Relationship Specialty Start Date End Date Fausto Good P.A.-C. PCP - General 07/25/16 [address] [place] [phone] documented as of this encounter
--- OUTSIDE RECORDS SUMMARY | 2022-01-23 07:17 | XMS_ITS | Encounter Summary ---
:1965 Author Organization [facility] Address [address] [place] [address] Care Team Providers Name Role Phone Fausto Good P.A.-C. Primary Care Provider [phone] Encounter Details Date Type Department Care Team Description 09/28/2019 Hospital Encounter Department of Leandra Good Laboratory Medicine Zahra Lambert Essential Primary in [address] 300 [facility] [address] [place], [place] [phone] [address] (Work) [phone] Social History Tobacco Use Types Packs/Day Years [...] or relatives? How often do you attend synagogue or Never 2021 jehovah's witness services? Do you belong to any clubs or No 02/16/2021 organizations such as synagogue groups, unions, fraternal or athletic groups, or [...] to pay for the very basics like [employer] hat hard 02/16/2021 food, housing, medical care, [...] 1 tablet by mouth 90 tablet 3 08/26/2019 09/30/2019 hiazide daily. (PRINZIDE,ZESTORETIC) 10-12.5 mg per tablet propranoloL (INDERAL) Take 1 tablet (20 mg 90 tablet 0 08/1009/30/2019 20 mg tablet total) by mouth every 8 (eight) hours. documented as of this encounter Plan of Treatment Not on filedocumented as of this encounter Procedures Procedure Name Priority Date/Time Associated Diagnosis Comme nts BASIC METABOLIC Routine 09/28/2019 10:55 Hypertension Results for this PANEL, S/P AM CDT Essential Primary procedure are in the results section. documented in this encounter Results Basic Metabolic Panel (09/28/2019 10:55 AM CDT) P athologist Signature Potassium, P 4.2 3.6 - 5.2 09/28/2019 [place] mmol/L 1:56 PM CDT Sodium, P 140 135 - 145 09/28/2019 [place] mmol/L 1:56 PM CDT Chloride, P 102 98 - 107 09/28/2019 [place] mmol/L 1:56 PM CDT Bicarbonate, P 28 22 - 29 09/28/2019 [place] mmol/L 1:56 PM CDT Anion Gap, P 10 7 - 15 09/28/2019 [place] 1:56 PM CDT BUN (Blood Urea 17 6 - 21 09/28/2019 [facility] Nitrogen), P mg/dL 1:56 PM CDT Creatinine 0.78 0.59 - 09/28/2019 [facility] 1.04 mg/dL 1:56 PM CDT eGFR-Black/Afric >90 >=60 09/28/2019 [facility] an Danish mL/min/BSA 1:56 PM CDT Comment: ----ADDITIONAL INFORMATION---- Estimated GFR calculated using the 2009 CKD_EPI creatinine equation. eGFR Non-Black/ 88 >=60 mL/min/BSA 1:56 PM CDT [facility] Comment: ----ADDITIONAL INFORMATION---- Estimated GFR calculated using the 2009 CKD_EPI creatinine equation. Calcium, Total, P 9.3 8.6 - 10.0 mg/dL 09/28/2019 1:56 PM CDT [facility] Glucose, P 106 70 - 140 mg/dL 09/28/2019 1:56 PM CDT O SOPHIA Specimen Anatomical Collection Method Collection Time Receive d Time (Source) Location / / Volume Laterality Blood (Blood, 09/28/2019 10:55 09/28/2019 1:10 Venous) AM CDT PM CDT Fausto Good P.A.-C. LAB BLOOD ADD-ON Performing Organization Address City/State/ZIP Code Phon e Number [facility]- [address] [place] [address] [place] [address] [address] [place] [address] documented in this encounter Visit Diagnoses Diagnosis Hypertension Essential Primary documented in this encounter Additional Health Concerns Assessment Noted Time PHQ-9 Depression Total Score: 11 10/28/2018 2:28 PM CD T documented as of this encounter Care Teams Ceo & Board Director Relationship Specialty Start Date End Date Fausto Good P.A.-C. PCP - General 07/25/[address] [place] [phone] documented as of this encounter
--- OUTSIDE RECORDS SUMMARY | 2022-01-23 07:17 | XMS_ITS | Encounter Summary ---
:1965 Author Organization [facility] Address [address] [place] [address] Care Team Providers Name Role Phone Fausto Good P.A.-C. Primary Care Provider [phone] Reason for Visit Reason Comments Med Refill Encounter Details Date Type Department Care Team Description 04/10/2020 Refill Division of Endocrinology in Sofia Dudley M.D. Med Refill [place], [place] [address] [facility] [address] [place] [address] [phone] (Wo rk) Social History Tobacco Use Types [...] or relatives? How often do you attend hinduism or Never 2021 gnosticism services? Do you belong to any clubs or No 02/16/2021 organizations such as hinduism groups, unions, fraternal or athletic groups, or [...] to pay for the very basics like [employer] Store[employer] hat hard 02/16/2021 food, housing, medical care, [...] this encounter Miscellaneous Notes Telephone Encounter - Leigh Rajput R.N. - 04/10/2020 12:55 PM AMBULANCE PARAMEDIC Prescription renewal request did not meet nurse protocol because: patient has not been seen within the past 12 months and medication is not an active prescription Protocol utilized: Prescription Renewal Request for Medications: Division of Endocrinology, Diabetes, Metabolism and Nutrition. LANCE PARAMEDIC Telephone Encounter - Angelina Garvin - 04/10/2020 11:50 AM CST Requesting refills for the following prescriptions-- Did the request come from a pharmacy or the patient? pharmacy Name of the pharmacy: [id number] Preferred Pharmacy Correct in EPIC (yes or no): yes Medication(s) requested: amLODIPine (NORVASC) 10 mg tablet, Take 1 tablet (10 mg total) by mouth daily. - oral Last quantity issued: 90 tablets Patient's Endocrine provider is: Dr. Conroy Thank you Alissa Shaker Tender [phone] PLEASE REPLY TO THE SECRETARIAL POOL WHEN REPLYING TO THIS MESSAGE--p RST END [facility]. Thank you! LANCE PARAMEDIC documented in this encounter Plan of Treatment Not on filedocumented as of this encounter Visit Diagnoses Not on filedocumented in this encounter Additional Health Concerns Assessment Noted Time PHQ-9 Depression Total Score: 11 10/28/2018 2:28 PM CD T documented as of this encounter Care Teams Hydro Excavation Operator Relationship Specialty Start Date End Date Fausto Good P.A.-C. PCP - General 07/25/[address] [place] [phone] documented as of this encounter
--- OUTSIDE RECORDS SUMMARY | 2022-01-23 07:17 | XMS_ITS | Encounter Summary ---
:1965 Author Organization [facility] Address [address] [place] [address] Care Team Providers Name Role Phone Fausto Good P.A.-C. Primary Care Provider [phone] Encounter Details Date Type Department Care Team Description 02/15/2019 Hospital Encounter Department of Arabella Conroy' Hyperthyroidism Laboratory Medicine Latrice Black and Pathology, [address] [place] [address] in [facility] [address] [place] [phone] [place] [address] (Work) [place], [place] [phone] [address] (Fax) [phone] Social History Tobacco Use Types Packs/Day Years [...] do you attend pentecostalism or Never 2021 restorationist services? Do you [...] place to sleep or slept in a snf (including now)? Education Answer Date Recorded What [...] Date/Time Associated Diagnosis Comme nts THYROID-STIMULATIN Routine 02/15/2019 11:05 Graves' Hyperthyro idism Results for this G AM INSTRUCTIONAL SYSTEMS SPECIALIST procedure are i n HORMONE-SENSITIVE the result s (S-TSH) section. T4 (THYROXINE), Routine 02/15/2019 11:05 Graves' Hyperthyroidi sm Results for this FREE, S AM INSTRUCTIONAL SYSTEMS SPECIALIST procedure are i n the results section. documented in this encounter Results T4 (Thyroxine), Free (02/15/2019 11:05 AM INSTRUCTIONAL SYSTEMS SPECIALIST) athologist Signature T4 (Thyroxine), 1.6 0.9 - 1.7 02/15/2019 DTL Free, S ng/dL 12:47 PM INSTRUCTIONAL SYSTEMS SPECIALIST Specimen Anatomical Collection Method Collection Time Receive d Time (Source) Location / / Volume Laterality Blood (Blood, 02/15/2019 11:05 02/15/2019 Venous) AM INSTRUCTIONAL SYSTEMS SPECIALIST 11:25 AM INSTRUCTIONAL SYSTEMS SPECIALIST Sofia Conroy M.D. LAB BLOOD ADD-ON Performing Organization Address City/[facility] Phon e Number [facility] - [address] (ABNORMAL) S-TSH (Thyroid-Stimulating Hormone - Sensitive) (02/15/2019 11:05 AM INSTRUCTIONAL SYSTEMS SPECIALIST) athologist Signature TSH, Sensitive 0.06 (L) 0.3 - 4.2 02/15/2019 DTL mIU/L 12:47 PM INSTRUCTIONAL SYSTEMS SPECIALIST Specimen Anatomical Collection Method Collection Time Receive d Time (Source) Location / / Volume Laterality Blood (Blood, 02/15/2019 11:05 02/15/2019 Venous) AM INSTRUCTIONAL SYSTEMS SPECIALIST 11:25 AM INSTRUCTIONAL SYSTEMS SPECIALIST Sofia Conroy M.D. LAB BLOOD ADD-ON Performing Organization Address City/[facility] Phon e Number [facility] - [address] documented in this encounter Visit Diagnoses Diagnosis Graves' Hyperthyroidism documented in this encounter Additional Health Concerns Assessment Noted Time PHQ-9 Depression Total Score: 11 10/28/2018 2:28 PM CD T documented as of this encounter Care Teams Pbx Inspector Relationship Specialty Start Date End Date Fausto Good P.A.-C. PCP - General 07/25/[address] [place] [phone] documented as of this encounter
--- OUTSIDE RECORDS SUMMARY | 2022-01-23 07:17 | XMS_ITS | Encounter Summary ---
:1965 Author Organization [facility] Address [address] [place] [address] Care Team Providers Name Role Phone Fausto Good P.A.-C. Primary Care Provider [phone] Encounter Details Date Type Department Care Team Description 12/08/2018 Clinical Communication Division of Sofia Conroy, Endocrinology in [place], [place] [address] [facility] [address] [place] [address] [phone] Social History Tobacco Use Types Packs/Day Years [...] or relatives? How often do you attend sabianist or Never 2021 rastafari services? Do you belong to any clubs or No 02/16/2021 organizations such as sabianist groups, unions, fraternal or athletic groups, or [...] to pay for the very basics like [employer] hat hard 02/16/2021 food, housing, medical care, [...] this encounter Miscellaneous Notes Telephone Encounter - Sofia Conroy M.D. - 12/08/2018 10:37 AM CDT Naomi go for beginning of February. [place] Telephone Encounter - Naomi Best - 12/08/2018 10:[address] Conroy, I was looking at scheduling your follow-up appointment with Ms. Jovany Kahn. Looking at the appointments to schedule however, it looks like you entered two return appointments to see her back. The soonest appointment you have entered is to see back on 01/12 (which you're scheduled to be off). Were you planning on coming in to see Ms Jovany Kahn that day? Otherwise, the appointment would probably be pushed out to next year as it looks like you're out of office for most of January. Thanks, ~Naomi documented in this encounter Plan of Treatment Not on filedocumented as of this encounter Visit Diagnoses Not on filedocumented in this encounter Additional Health Concerns Assessment Noted Time PHQ-9 Depression Total Score: 11 10/28/2018 2:28 PM CD T documented as of this encounter Care Teams Rivet Heater Relationship Specialty Start Date End Date Fausto Good P.A.-C. PCP - General 07/25/16 [address] [place] [phone] documented as of this encounter
--- OUTSIDE RECORDS SUMMARY | 2022-01-23 07:17 | XMS_ITS | Encounter Summary ---
:1965 Author Organization [facility] Address [address] [place] [address] Care Team Providers Name Role Phone Fausto Good P.A.-C. Primary Care Provider [phone] Encounter Details Date Type Department Care Team Description 01/04/2019 Orders Only Department of [facility] Arabella Good' Hyperthyroidism Medicine, [place] [facility] (Primary Dx) Clinic, in [address] [address] [place], [place] [phone] (Work) [phone] Social History Tobacco Use Types Packs/Day Years [...] or relatives? How often do you attend latter day or Never 2021 samaritan services? Do you belong to any clubs or No 02/16/2021 organizations such as latter day groups, unions, fraternal or athletic groups, or [...] to pay for the very basics like [employer] hat hard 02/16/2021 food, housing, medical care, [...] on filedocumented as of this encounter Results T4 (Thyroxine), Free (01/01/2019 4:41 AM FINANCIAL SERVICES REP) P athologist Signature T4 (Thyroxine), 1.7 0.9 - 1.7 01/04/2019 [facility] Free, S ng/dL 11:19 AM FINANCIAL SERVICES REP Comment: Biotin has been identified by the lazarus singh as a potential interfering substance. ??Higher concentr ations of biotin may be found in multivitamins, hair/nail supple ments, and workout supplements. ??If the result does not [facility] clinical observations, repeat testing after patient refrains fr om the use of supplements for at least 12 hours. Specimen Anatomical Collection Method Collection Time Receive d Time (Source) Location / / Volume Laterality Blood (Blood, 01/01/2019 4:41 AM 01/05/20 9:57 Venous) FINANCIAL SERVICES REP AM FINANCIAL SERVICES REP Fausto Good P.A.-C. LAB BLOOD ADD-ON Performing Organization Address City/State/ZIP Code Phon e Number [facility]- [address] [place] [address] [place] [address] System in [place] [address] documented in this encounter Visit Diagnoses Diagnosis Graves' Hyperthyroidism - Primary documented in this encounter Additional Health Concerns Assessment Noted Time PHQ-9 Depression Total Score: 11 10/28/2018 2:28 PM CD T documented as of this encounter Care Teams Dye Line Operator Relationship Specialty Start Date End Date Fausto Good P.A.-C. PCP - General 07/25/[address] [place] [phone] documented as of this encounter
--- OUTSIDE RECORDS SUMMARY | 2022-01-23 07:17 | XMS_ITS | Encounter Summary ---
:1965 Author Organization [facility] Address [address] [place] [address] Care Team Providers Name Role Phone Fausto Good P.A.-C. Primary Care Provider [phone] Encounter Details Date Type Department Care Team Description 12/02/2018 Orders Only Division of Rocco Conroy (Primary Endocrinology in Latrice Black Dx) [place], [place] [address] [facility] [address] [place] [phone] [phone] Social History Tobacco Use Types Packs/Day Years [...] do you attend mormonism or Never 2021 sikh services? Do you [...] as of this encounter Visit Diagnoses Diagnosis Hyperthyroidism - Primary documented in this encounter Additional Health Concerns Assessment Noted Time PHQ-9 Depression Total Score: 11 10/28/2018 2:28 PM CD T documented as of this encounter Care Teams Main Line Station Engineer Relationship Specialty Start Date End Date Fausto Good P.A.-C. PCP - General 07/25/[address] [place] [phone] documented as of this encounter
--- OUTSIDE RECORDS SUMMARY | 2022-01-23 07:17 | XMS_ITS | Encounter Summary ---
:1965 Author Organization [facility] Address [address] [place] [address] Care Team Providers Name Role Phone Fausto Good P.A.-C. Primary Care Provider [phone] Reason for Visit Reason Comments Med Refill Encounter Details Date Type Department Care Team Description 12/24/2018 Refill Division of Endocrinology in Sofia Dudley M.D. Med Refill [place], [place] [address] [place] [address] [address] [place] [phone] (Wo rk) Social History Tobacco Use Types [...] do you attend presybeterian or Never 2021 baptist services? Do you belong to any clubs [...] Telephone Encounter - Leigh Rajput R.N. - 12/24/2018 7:51 AM CST Prescription renewal request did not meet nurse protocol because: requested medication not listed inmost recent plan of care. Protocol utilized: Prescription Renewal Request for Medications: Division of Endocrinology, Diabetes, Metabolism and Nutrition. E CUSTODIAN Telephone Encounter - Ameena Grissom - 12/24/2018 7:36 AM CST Requesting refills for the following prescriptions-- Did the request come from a pharmacy or the patient? Pharmacy Name of the pharmacy: [facility] Preferred Pharmacy Correct in EPIC (yes or no): yes Medication(s) requested: Levothyroxine 125mcg Last quantity issued: na Patient's Endocrine provider is: Sofia Conroy MD Thank you, Ameena E CUSTODIAN documented in this encounter Plan of Treatment Not on filedocumented as of this encounter Visit Diagnoses Not on filedocumented in this encounter Additional Health Concerns Assessment Noted Time PHQ-9 Depression Total Score: 10/28/2018 2:28 PM CD T documented as of this encounter Care Teams Belt Fixer Relationship Specialty Start Date End Date Fausto Good P.A.-C. PCP - General 07/25/[address] [place] [phone] documented as of this encounter
--- OUTSIDE RECORDS SUMMARY | 2022-01-23 07:17 | XMS_ITS | Encounter Summary ---
:1965 Author Organization [facility] Address [address] [place] [address] Care Team Providers Name Role Phone Fausto Good P.A.-C. Primary Care Provider [phone] Reason for Visit Reason Comments NOAH Nurse Line Encounter Details Date Type Department Care Team Description 07/16/2019 Clinical Communication Division of NOAH Conroy Nurse [facility] Endocrinology in Latrice Black [place], [place] [address] [facility] [address] [place] [phone] Social History Tobacco Use Types Packs/Day Years [...] do you attend confucianist or Never 2021 yazidi services? Do you [...] this encounter Miscellaneous Notes Telephone Encounter - Estefanía Santos - 07/16/2019 4:08 PM CDT In the past 30 days have you had a swab for COVID that tested positive? no documented in this encounter Plan of Treatment Not on filedocumented as of this encounter Visit Diagnoses Not on filedocumented in this encounter Additional Health Concerns Assessment Noted Time PHQ-9 Depression Total Score: 11 10/28/2018 2:28 PM CD T documented as of this encounter Care Teams Customer Success Intern Relationship Specialty Start Date End Date Fausto Good P.A.-C. PCP - General 07/25/[address] [place] [phone] documented as of this encounter
--- OUTSIDE RECORDS SUMMARY | 2022-01-23 07:18 | XMS_ITS | Encounter Summary ---
:1965 Author Organization [facility] Address [address] [place] [address] Care Team Providers Name Role Phone Fausto Good P.A.-C. Primary Care Provider [phone] Encounter Details Date Type Department Care Team Description 10/19/2018 Clinical Communication Department of Fausto Lam [facility], Mariela Gerardo [facility], in [address] [address] [place], [place] [phone] (Work) [phone] Social History Tobacco Use Types Packs/Day Years Used Date Smoking Tobacco: Every Day Cigarettes 0.5 35 S tarted: 02/10/1982 E-cigarettes Smokeless Tobacco: Never Alcohol Use Standard Drinks/Week Comments Yes 0 (1 standard drink = 0.6 oz pure alcoho l) Alcohol Habits Answer Date Recorded How often [...] do you attend mandaeism or Never 2021 anabaptism services? Do you [...] to pay for the very basics like [employer] hat hard 02/16/2021 food, housing, medical care, [...] this encounter Miscellaneous Notes Telephone Encounter - Courtney Carrion L.P.N. - 10/19/2018 10:14 AM CDT Orders for lab are in, please assist with scheduling them. Thank you. Telephone Encounter - Fausto Good P.A.-C. - 10/19/2018 9:57 AM CDT Orders are in Telephone Encounter - Alley Gannon - 10/19/2018 9:31 AM CDT Reason for Communication: Patient calling to schedule annual physical, mammogram, and colonoscopy. Fine Arts Instructor has assisted patient in scheduling physical and mammogram, and patient stating she would like to wait to set up her colonoscopy until she meets with Fausto for her physical. Patient requesting Fausto please place lab orders (normally done with her physical) so she may have labs done 10-26-2018 when she is at [facility] for her mammogram. Current Can Nursing/Provider leave a detailed message: Yes Did the patient refuse triage through Nurse line? (for symptom based concerns): No. NL does not apply Action Needed: Please place lab orders and contact patient once placed for scheduling Name of Medication (if relevant): N/A documented in this encounter Plan of Treatment Not on filedocumented as of this encounter Results CBC with Differential, Blood (10/26/2018 11:42 AM CDT) P athologist Signature Hemoglobin 14.9 11.6 - 10/26/2018 15.0 g/dL 12:02 PM CDT Hematocrit 43.9 35.5 - 10/26/2018 44.9 % 12:02 PM CDT Erythrocytes 4.89 3.92 - 10/26/2018 5.13 12:02 PM CDT x10(12)/L MCV 89.8 78.2 - 10/26/2018 97.9 fL 12:02 PM CDT RBC Distrib Width 12.5 12.2 - 10/26/2018 16.1 % 12:02 PM CDT Platelet Count 203 157 - 371 10/26/2018 x10(9)/L 12:02 PM CDT Leukocytes 7.6 3.4 - 9.6 10/26/2018 x10(9)/L 12:02 PM CDT Neutrophils 4.17 1.56 - 10/26/2018 6.45 12:02 PM CDT x10(9)/L Lymphocytes 2.51 0.95 - 10/26/2018 3.07 12:02 PM CDT x10(9)/L Monocytes 0.69 0.26 - 10/26/2018 0.81 12:02 PM CDT x10(9)/L Eosinophils 0.17 0.03 - 10/26/2018 0.48 12:02 PM CDT x10(9)/L Basophils 0.04 0.01 - 10/26/2018 0.08 12:02 PM CDT x10(9)/L Specimen Anatomical Collection Method Collection Time Receive d Time (Source) Location / / Volume Laterality Blood (Blood, 10/26/2018 11:42 10/26/2018 Venous) AM CDT 11:51 AM CDT Fausto Roethler P.A.-C. LAB BLOOD ADD-ON Performing Organization Address City/[facility] Phon e Number [facility] [address] [place] [phone] LAB (ABNORMAL) S-TSH (Thyroid-Stimulating Hormone - Sensitive) (10/26/2018 11:42 AM CDT) athologist Signature TSH, Sensitive 5.8 (H) 0.3 - 4.2 10/26/2018 mIU/L 1:13 PM CDT Comment: Biotin has been identified by the lazarus singh as a potential interfering substance. ??Higher concentr ations of biotin may be found in multivitamins, hair/nail supple ments, and workout supplements. ??If the result does not ma tch clinical observations, repeat testing after patient refrains fr om the use of supplements for at least 12 hours. Specimen Anatomical Collection Method Collection Time Receive d Time (Source) Location / / Volume Laterality Blood (Blood, 10/26/2018 11:42 10/26/2018 Venous) AM CDT 11:51 AM CDT Fausto Good P.A.-C. LAB BLOOD ADD-ON Performing Organization Address City/[facility] Code Phon e Number [facility] [address] [place] [id number] LAB Lipid Panel (10/26/2018 11:42 AM CDT) athologist Signature Cholesterol, 182 mg/dL 10/26/2018 Total 1:51 PM CDT Comment: ----REFERENCE VALUE---- Desirable: < 200 Borderline high: 200 - 239 High: > or = 240 Triglycerides 80 mg/dL 10/26/2018 1:51 PM CDT Comment: ----REFERENCE VALUE---- Normal: <150 Borderline high: 150-199 High: 200-499 Very high: > or =500 Cholesterol, HDL, S 56 >=50 mg/dL 10/26/2018 1:51 PM CDT Calculated LDL 110 mg/dL 10/26/2018 1:51 PM CDT Comment: ----REFERENCE VALUE---- Desirable: <100 Above Desirable: 100-129 Borderline high: 130-159 High: 160-189 Very high: > or =190 Cholesterol, Non-HDL, Calculated 126 mg/dL 019 1:51 PM CDT Comment: ----REFERENCE VALUE---- Desirable: <130 Above Desirable: 130-159 Borderline high: 160-189 High: 190-219 Very high: > or =220 Specimen Anatomical Collection Method Collection Time Receive d Time (Source) Location / / Volume Laterality Blood (Blood, 10/26/2018 11:42 10/26/2018 Venous) AM CDT 11:51 AM CDT Fausto Good P.A.-C. LAB BLOOD ADD-ON Performing Organization Address City/State/ZIP Code Phon e Number [facility] [address] [place] [address] LAB (ABNORMAL) Comprehensive Metabolic Panel (10/26/2018 11:42 AM CDT) P athologist Signature Potassium, S 4.4 3.6 - 5.2 10/26/2018 mmol/L 1:51 PM CDT Sodium, S 144 135 - 145 10/26/2018 mmol/L 1:51 PM CDT Chloride, S 105 98 - 107 10/26/2018 mmol/L 1:51 PM CDT Bicarbonate, S 28 22 - 29 10/26/2018 mmol/L 1:51 PM CDT Anion Gap 11 7 - 15 10/26/2018 1:51 PM CDT BUN (Blood Urea 19 6 - 21 10/26/2018 Nitrogen), S mg/dL 1:51 PM CDT Creatinine 0.79 0.59 - 10/26/2018 1.04 mg/dL 1:51 PM CDT eGFR-Non 87 >=60 10/26/2018 Black/ mL/min/BSA 1:51 PM CDT [place]i Comment: ----ADDITIONAL INFORMATION---- Estimated GFR calculated using the 2009 CKD_EPI creatinine equation. eGFR-Black/ >90 >=60 mL/min/BSA 2018 1:51 PM CDT Comment: ----ADDITIONAL INFORMATION---- Estimated GFR calculated using the 2009 CKD_EPI creatinine equation. Calcium, Total, S 9.1 8.6 - 10.0 mg/dL 10/26/2018 1:51 PM CDT Glucose, S 103 70 - 140 mg/dL 10/26/2018 1:51 PM CDT Protein, Total, S 6.8 6.3 - 7.9 g/dL 10/26/2018 1:51 P M CDT Albumin, S 4.1 3.5 - 5.0 g/dL 10/26/2018 1:51 PM CDT Aspartate Aminotransferase 18 8 - 43 U/L 10/26/2018 1 :51 PM CDT (AST), S Alkaline Phosphatase, S 129 (H) 35 - 104 U/L 10/26/2018 1: 51 PM CDT Alanine Aminotransferase (ALT), 20 7 - 45 U/L 019 1:51 PM CDT S Bilirubin, Total, S 0.4 <=1.2 mg/dL 10/26/2018 1:51 PM CDT Specimen Anatomical Collection Method Collection Time Receive d Time (Source) Location / / Volume Laterality Blood (Blood, 10/26/2018 11:42 10/26/2018 Venous) AM CDT 11:51 AM CDT Fausto Good P.A.-C. LAB BLOOD ADD-ON Performing Organization Address City/State/ZIP Code Phon e Number [facility] [address] [place] [phone] LAB documented in this encounter Visit Diagnoses Diagnosis Hyperthyroidism - Primary Screening Examination Diabetes Mellitus Encounter For Screening For Cardiovascul ar Disorders Iron Deficiency Anemia Screening Exam documented in this encounter Additional Health Concerns Assessment Noted Time PHQ-9 Depression Total Score: 7 09/12/2014 2:25 PM CDT documented as of this encounter Care Teams Fitness Teacher Relationship Specialty Start Date End Date Fausto Good P.A.-C. PCP - General 07/25/16 [address] [place] [phone] documented as of this encounter
--- OUTSIDE RECORDS SUMMARY | 2022-01-23 07:18 | XMS_ITS | Encounter Summary ---
:1965 Author Organization [facility] Address [address] [place] [address] Care Team Providers Name Role Phone Fausto Good P.A.-C. Primary Care Provider [phone] Encounter Details Date Type Department Care Team Description 07/16/2018 Hospital Encounter Department of ConroySofia monteiro, Hyper thyroidism Laboratory Medicine in [place], [place] [address] [phone] [phone] Social History Tobacco Use Types Packs/Day Years [...] or relatives? How often do you attend caodaism or Never 2021 jainism services? Do you belong to any clubs or No 02/16/2021 organizations such as caodaism groups, unions, fraternal or athletic groups, or [...] or slept in a [facility] (including now)? Sex Assigned at Date Recorded Female 10/01/2017 7:47 AM CDT documented as of this encounter Medications at Time of Discharge Medication Sig Dispensed Refills Start Date End Date chlorhexidine 2 (two) times a day. 0 03/31/2018 0 10/28/2018 (PERIDEX) 0.12 % mouthwash EPINEPHrine (EPIPEN) Inject 0.3 mL (0.3 mg 1 each 1 12/1110/28/2018 0.3 mg/0.3 mL total) intramuscularly injection syringe as needed for anaphylaxis. Inject into the thigh. EPINEPHrine (EPIPEN) Inject 0.3 mL (0.3 mg 1 each 12/1111/30/2018 0.3 mg/0.3 mL total) intramuscularly injection syringe as needed for anaphylaxis. Inject into the thigh. ibuprofen Take 600 mg by mouth 4 0 03/31/2018 (ADVIL,MOTRIN) 600 mg (four) times a day as tablet needed. methIMAzole Take 2.5 tablets (25 mg 75 tablet 11 05/04/2018 09/30/2018 (TAPAZOLE) 10 mg total) by mouth daily. tablet propranolol (INDERAL) Take 1 tablet (20 mg 270 tablet 3 04/1108/11/2018 20 mg tablet total) by mouth every 8 (eight) hours. documented as of this encounter Plan of Treatment Scheduled Orders Name Type Priority Associated Diagnoses Order S chedule Kit Collection Lab Routine Hyperthyroidism Once for 1 Occurrences starting 07/16/2018 unti l 07/16/2018 documented as of this encounter Visit Diagnoses Diagnosis Hyperthyroidism documented in this encounter Additional Health Concerns Assessment Noted Time PHQ-9 Depression Total Score: 7 09/12/2014 2:25 PM CDT documented as of this encounter Care Teams Broach Grinder Relationship Specialty Start Date End Date Fausto Good P.A.-C. PCP - General 07/25/[address] [place] [phone] documented as of this encounter
--- OUTSIDE RECORDS SUMMARY | 2022-01-23 07:18 | XMS_ITS | Encounter Summary ---
:1965 Author Organization [facility] Address [address] [place] [address] Care Team Providers Name Role Phone Fausto Good P.A.-C. Primary Care Provider [phone] Encounter Details Date Type Department Care Team Description 11/24/2018 Orders Only Division of Endocrinology in Sofia Dudley M.D. [place], [place] [address] [facility] [address] [place] [phone] (Wo rk) Social History Tobacco Use Types [...] do you attend pentecostal or Never 2021 holiness services? Do you belong to any clubs [...] to pay for the very basics like [employer] hat hard 02/16/2021 food, housing, medical care, [...] documented as of this encounter Care Teams Landscape Specialist Relationship Specialty Start Date End Date Fausto Good P.A.-C. PCP - General 07/25/16 [address] [place] [phone] documented as of this encounter
--- OUTSIDE RECORDS SUMMARY | 2022-01-23 07:18 | XMS_ITS | Encounter Summary ---
:1965 Author Organization [facility] Address [address] [place] [address] Care Team Providers Name Role Phone Fausto Good P.A.-C. Primary Care Provider [phone] Encounter Details Date Type Department Care Team Description 11/24/2018 Hospital Encounter Department of ConroySofia monteiro, Hyper thyroidism Laboratory Medicine in [place], [place] [address] [phone] [phone] Social History Tobacco Use Types Packs/Day Years [...] do you attend synagogue or Never 2021 yazidism services? Do you belong to any clubs [...] place to sleep or slept in a skilled nursing (including now)? Education Answer Date Recorded What is the highest level of school you have Some college, n o degree 09/27/2018 completed or the highest degree you have received? Sex Assigned at Date Recorded Female 10/01/2017 7:47 AM CDT documented as of this encounter Medications at Time of Discharge Medication Sig Dispensed Refills Start Date End Date acetaminophen Take 2 tablets (1,000 0 12/01/2018 12/01/2018 (TYLENOL) 500 mg mg total) by mouth tablet every 6 (six) hours. acetaminophen Take 2 tablets (1,000 0 12/01/2018 01/01/2019 (TYLENOL) 500 mg mg total) by mouth tablet every 6 (six) hours as needed for pain. amLODIPine (NORVASC) 5 Take 1 tablet (5 [...] Inject 0.3 mL (0.3 mg 1 each 10/1108/25/2020 0.3 mg/0.3 mL total) intramuscularly injection syringe as needed for anaphylaxis. Inject into the thigh. ergocalciferol 1 cps 2 days this week 16 capsule 2 9 02/15/2019 (DRISDOL) 50,000 Unit repeat next week x 8 capsule weeks levothyroxine Take 1 tablet (125 mcg 50 tablet 0 12/03/2018 12/24/2018 (SYNTHROID, total) by mouth every LEVOTHROID) 125 mcg morning before tablet breakfast. methIMAzole (TAPAZOLE) Take 3 tablets (30 mg 90 tablet 11 12/01/2018 10 mg tablet total) by mouth daily. oxyCODONE (ROXICODONE) Take 1 tablet (5 mg 10 tablet 0 11/1112/01/2018 5 mg immediate release total) by mouth every tabletIndications: 4 (four) hours as Acute Pain needed for mild pain or score 1-3 of 10 Indication: Acute Pain. oxyCODONE (ROXICODONE) Take 1 tablet (5 mg 5 tablet 0 11/1101/01/2019 5 mg immediate release total) by mouth every tabletIndications: 6 (six) hours as Acute Pain needed for severe pain or score 7-10 of 10 Indication: Acute Pain. propranolol (INDERAL Take 1 capsule (120 mg 30 capsule 11 11/30/2018 LA) 120 mg 24 hr total) by mouth daily. capsule propranolol (INDERAL) Take 40 mg by mouth 3 0 12/01/2018 20 mg tablet (three) times a day. propranolol (INDERAL) Take 1 tablet (20 mg 0 11/1102/15/2019 20 mg tablet total) by mouth 3 (three) times a day. sennosides-docusate Take 2 tablets by 60 tablet 9 01/01/2019 sodium (Senna with mouth at bedtime. Docusate Sodium) 8.6-50 mg per tablet documented as of this encounter Plan of Treatment Not on filedocumented as of this encounter Visit Diagnoses Diagnosis Hyperthyroidism documented in this encounter Additional Health Concerns Assessment Noted Time PHQ-9 Depression Total Score: 11 10/28/2018 2:28 PM CD T documented as of this encounter Care Teams Copper Tapper Relationship Specialty Start Date End Date Fausto Good P.A.-C. PCP - General 07/25/[address] [place] [phone] documented as of this encounter
--- OUTSIDE RECORDS SUMMARY | 2022-01-23 07:18 | XMS_ITS | Encounter Summary ---
:1965 Author Organization [facility] Address [address] [place] [address] Care Team Providers Name Role Phone Fausto Good P.A.-C. Primary Care Provider [phone] Reason for Visit Auth/Cert Specialty Diagnoses / Procedures Referred By Contact Refer red To Contact Diagnoses Hyperthyroidism Hyperthyroidism [E05.90] Procedures PA THYROIDECTOMY TOTAL/COMPLETE THYROIDECTOMY - TOTAL Referral ID Status Reason Start Date Expiration Date Visits Requ ested Visits Authorized [id number] 1 1 Encounter Details Date Type Department Care Team Description 11/30/2018 Anesthesia Event [facility] [place] OR Chance Garcia M.D., Ph.D. [address] [place] [phone] 201 [facility] [place] K, SCHOOL LABORATORY TECHNICIAN, ASSOCIATE PROFESSOR OF [employer], DNAP [address] [place] [phone] [place] [phone] Anesthesia Record Procedure Summary Procedure Name Responsible Anesthesia Start Anesthesia Stop Time Anesthesiologist Time THYROIDECTOMYJose Robert T, M.D., 11/30/18 1201 11/30/18 1403 TOTAL. Ph.D. Events Date Time Event Comment 11/30/2018 1150 1201 An Start Machine/Equipmen t Checked Infection Precautions Foll owed Procedure/Site Verified NPO Sta tus Verified Supine Standard ASA Mon itors Applied 1203 In Room 1207 An Induction 1214 An Intubation 1228 Turnover to Proceduralist 1231 Proc Start 1344 Proc Fin 1348 Turnover to ANE Staff 1351 Airway Removal Criteria Met 1351 Extubation/Airway Removed 1353 an stop data 1356 Out of Room 1403 An End I completed my h andoff to the receiving staff during [facility] we 1. Identified the patient 2. Ident ified the responsible provider 3. Revi ewed the pertinent medical history 4. Discussed the surgical course 5. Review ed intra-op anesthesia management and i ssues during anesthesia 6. Set expectati ons for post-procedure period 7. Allowe d opportunity for questions and ac knowledgement of understanding. Name Total fentanyl injection 50 mcg/mL 100 mcg lidocaine 2% (mg) injection 100 mg propofol 10 mg/mL 150 mg propofol 10 mg/mL infusion 479.88 mg succinylcholine 20 mg/mL injection 100 mg phenylephrine 100 mcg/mL injection 400 mcg ePHEDrine PF 5 mg/mL syringe injection 30 mg remifentanil 20 mcg/mL in NaCl 0.9% 100 mL infusion (U LTIVA) 1.92 mg vasopressin 20 Units/mL injection 6 Units dexamethasone 4 mg/mL injection 4 mg droperidol 2.5 mg/mL injection 0.625 mg caffeine-sodium benzoate 250 mg (125 mg caffeine)/mL i njection 250 mg Lactated Ringers Free Drip 1,000 mL Agents No agents on file. Blood No blood administrations on file. Lines, Drains, and Airways Type Details Placement Removal Peripheral IV Placement Date: 11/30/18 1201 by 12/01/18 1035 b y 11/30/18; Placement Brianna Chambers Nizzari, Christina D, Time: 1201; Catheter SCHOOL LABORATORY TECHNICIAN, EMANUEL, DNAP R.N. Size: 20 G; Orientation: Right; Location: Hand; Inserted by: pre-op; Removal Date: 12/01/18; Removal Time: 1035; Removal Reason: Per order ETT Placement Date: 11/30/18 1214 by 11/30/18 1351 b y 11/30/18; Placement Brianna Chambers Swenson, Courtney K, Time: 1214 (created via SCHOOL LABORATORY TECHNICIAN, ASSOCIATE PROFESSOR OF [employer], DNAP SCHOOL LABORATORY TECHNICIAN, C RNA, DNAP procedure documentation); Mask Ventilation: Easy mask; Type: Monitored ETT; Single Lumen Tube Size: 7 mm; Cuffed: Yes; Location: Oral; Removal Date: 11/30/18; Removal Time: 1351 (RETIRED) Incision 11/30/18; 1332; Neck; 11/30/18 1332 by 1418 by 10/31/20 (Removed by [facility] ic-Background background completion Graciela , Trip paulino Automated utility); 1418 (Removed Batch Susan b by background completion utility) documented in this encounter Social History Tobacco Use Types Packs/Day Years [...] or relatives? How often do you attend sikhism or Never 2021 christian services? Do you belong to any clubs or No 02/16/2021 organizations such as sikhism groups, unions, fraternal or athletic groups, or [...] AM CDT documented as of this encounter OR Notes Anesthesia Postprocedure Evaluation - Chance Garcia M.D., Ph.D. - 11/30/2018 2:42 PM CDT Patient: Hannah Kahn Procedure Summary Date: 11/30/18 Room / Location: [place] [address] / [facility] in [place], [place] Anesthesia Start: 1201 Anesthesia Stop: 1403 Procedure: THYROIDECTOMY, TOTAL. (N/A ) Diagnosis: Hyperthyroidism (Hyperthyroidism [E05.90].) Provider: Elicia Shah M.D. Responsible Provider: Chance Garcia M.D., Ph.D. Anesthesia Type: general ASA Status: 2 Anesthesia Type: general Last vitals Vitals Value Taken Time BP 164/68 11/30/2018 2:30 PM Temp 36.4 ??C 11/30/2018 2:02 PM Pulse 84 11/30/2018 2:42 PM Resp 21 11/30/2018 2:42 PM SpO2 95 % 11/30/2018 2:42 PM Vitals shown include unvalidated device data. Please reference Vitals flowsheet for most recent vital signs. Anesthesia Post Evaluation Patient Disposition: general care unit Cardiovascular status: hemodynamics (HR & BP) acceptable Respiratory status: patent airway with spontaneous effort Temperature: normothermic Oxygen requirements: room air Level of consciousness: awake Pain score: pain requiring further management Post Op nausea/vomiting: none Hydration status: euvolemic Comments: Headache Anesthesia Procedure Notes - Brianna Chambers R.N. - 11/30/2018 12:30 PM CDT Associated Order(s): Airway Airway Date/Time: 11/30/2018 12:14 PM Performed by: Brianna Chambers R.N. Authorized by: Chance Garcia M.D., Ph.D. Patient location during procedure: OR / Procedure Area PROCEDURE DETAILS: Mask difficulty assessment: easy mask Final airway type: video laryngoscope Laryngeal Manipulation: no Final best view of glottic structures - Cormack/Lehane Score: grade 1 ETT location: oral VL device: glide scope [place] scope blade size: 3 Adult tube size: 7 Adult ETT distance at teeth/gum: 22 Oral tube type: monitored ETT Cuffed: yes Number of attempt to successful placement: 1 Airway confirmation: bilateral breath sounds, positive ETCO2 and bilateral chest rise Other previous techniques attempted: none PRE PROCEDURE DETAILS: Pre evaluation for airway management: procedure Urgency: elective Preop assessment of probable difficulty: no difficulty anticipated Preoxygenation: bag valve mask SEDATION / ANESTHESIA Anesthesia method: anesthesia POST PROCEDURE DETAILS: Procedure outcome: successful Airway event: no complications Anesthesia Preprocedure Evaluation - Chance Garcia M.D., Ph.D. - 11/30/2018 11:47 AM CDT Preprocedure Anesthesia & H&P Assessment Procedure Summary Date/Time: 11/30/18 1203 Procedure: THYROIDECTOMY, TOTAL. (N/A ) Diagnosis: Hyperthyroidism [E05.90] Pre-op diagnosis: Hyperthyroidism [E05.90]. Location: [place] [address] / [facility] in [place], [place] Provider: Elicia Shah M.D. Pertinent components of the patient's history including current problem list, medical history, surgical history, family history, social history, medications and allergies were reviewed. Present illnessand pre-op diagnosis were confirmed. The planned surgery / procedure was verified with the patient /legal guardian. The patient's general health condition remains unchanged No current facility-administered medications on file prior to encounter. Current Outpatient Medications on File Prior to Encounter Medication Sig Dispense Refill ??? amLODIPine (NORVASC) 5 mg tablet Take 1 tablet (5 mg total) by mouth daily. 90 tablet 3 ??? propranolol (INDERAL) 20 mg tablet Take 40 mg by mouth 3 (three) times a day. ??? cyclobenzaprine (FLEXERIL) 10 mg tablet Take 1 tablet (10 mg total) by mouth 3 (three) times a day as needed for muscle spasms. 30 tablet 11 ??? EPINEPHrine (EPIPEN) 0.3 mg/0.3 mL injection syringe Inject 0.3 mL (0.3 mg total) intramuscularly as needed for anaphylaxis. Inject into the thigh. 1 each 1 ??? methIMAzole (TAPAZOLE) 10 mg tablet Take 3 tablets (30 mg total) by mouth daily. (Patient not taking: Reported on 10/28/2018 ) 90 tablet 11 ??? [DISCONTINUED] EPINEPHrine (EPIPEN) 0.3 mg/0.3 mL injection syringe Inject 0.3 mL (0.3 mg total)intramuscularly as needed for anaphylaxis. Inject into the thigh. 1 each 11 ??? [DISCONTINUED] propranolol (INDERAL LA) 120 mg 24 hr capsule Take 1 capsule (120 mg total) by mouth daily. 30 capsule 11 PROBLEM LIST Relevant Problems CV (+) Hypertension Essential Primary ENDO (+) Hyperthyroidism OBJECTIVE PHYSICAL EXAMINATION Airway (HEENT) Mallampati: I TM Distance: >3 FB Neck ROM: Full Mouth Opening: >3 cm Cardiovascular Rhythm: Regular Rate: Normal Cardiovascular Assessment: cardiovascular normal Functional Capacity: >4 METS Pulmonary Pulmonary Assessment: Clear and non labored General / Constitutional Constitutional Assessment: Normal General State of Health:: healthy appearing and calm Neurological Neurologic Assessment:??alert and alert and oriented x 3 Dental Dental Assessment: dentition intact ASSESSMENT / PLAN ANESTHESIA PLAN ASA: 2 Anesthesia Plan: general Patient seen and allergies reviewed, anesthesia plan and risks discussed directly with patient /legal guardian or through an mold yard crane operator.. Risks/Benefits/Alternatives of Blood transfusion discussed with patient / legal guardian, including an opportunity to ask questions and/or decline some or all transfusion therapies. The patient / legalguardian consented to the use of all blood products, as deemed medically necessary Approval to Proceed: approved for anesthesia documented in this encounter Plan of Treatment Not on filedocumented as of this encounter Procedures Procedure Name Priority Date/Time Associated Comments Diagnosis LDA ANE ENDOTRACHEAL Routine 11/30/2018 12:30 Res ults for this AIRWAY PM CDT procedure are i n the results section. documented in this encounter Results LDA ANE ENDOTRACHEAL AIRWAY (11/30/2018 12:30 PM CDT) Narrative Brianna Chambers R.N. - 11/30/2018 1 2:30 PM CDT Brianna Chambers R.N. ? 11/30/2018 12:33 PM Airway Date/Time: 11/30/2018 12:14 PM Performed by: Brianna Chambers R.N. Authorized by: Chance Garcia M.D., P h.D. Patient location during procedure: OR / Procedure Area PROCEDURE DETAILS: Mask difficulty assessment: easy mask Final airway type: video laryngoscope Laryngeal Manipulation: no ?? Final best view of glottic structures - Cormack/Lehane Score: grade 1 ETT location: oral VL device: glide scope [place] scope blade size: 3 Adult tube size: 7 Adult ETT distance at teeth/gum: 22 Oral tube type: monitored ETT Cuffed: yes Number of attempt to successful placemen t: 1 Airway confirmation: bilateral breath so unds, positive ETCO2 and bilateral chest rise Other previous techniques attempted: non e PRE PROCEDURE DETAILS: Pre evaluation for airway management: pr ocedure Urgency: elective Preop assessment of probable difficulty: no difficulty anticipated Preoxygenation: bag valve mask SEDATION / ANESTHESIA Anesthesia method: anesthesia POST PROCEDURE DETAILS: ? Procedure outcome: successful ?? Airway event: no complications Chance Garcia M.D., Ph.D. ANESTHESIA ORDERABLES documented in this encounter Visit Diagnoses Not on filedocumented in this encounter Administered Medications Inactive Administered Medications - up to 3 most recent administrations Medication Order MAR Action Action Date Dose Rate Site caffeine-sodium benzoate injection Given 11/30/2018 1:49 PM CDT 250 mg As needed, Starting on Fri11/30/18 at 1349, Anesthesia Intra-op dexamethasone injection (DECADRON) Given 11/30/2018 12:20 PM CDT 4 mg As needed, Starting on Fri11/30/18 at 1220, Anesthesia Intra-op droperidol injection (INAPSINE) Given 11/30/2018 1:21 PM CDT 0.625 mg intravenous, As needed, Starting on Fri11/30/18 at 1321, Anesthesia Intra-op ePHEDrine (PF) injection Given 11/30/2018 12:27 PM CDT 10 mg intravenous, As needed, Starting on Fri11/30/18 at 1221, Anesthesia Intra-op Given 11/30/2018 12:24 PM CDT 5 mg Given 11/30/2018 12:21 PM CDT 5 mg fentaNYL injection (SUBLIMAZE) Given 11/30/2018 1:23 PM CDT 50 mcg intravenous, As needed, Starting on Fri11/30/18 at 1256, Anesthesia Intra-op Given 11/30/2018 12:56 PM CDT 50 mcg lactated ringers New Bag 11/30/2018 1:40 PM CDT intravenous, Continuous Infusion: Per Instructions PRN, Starting on Fri11/30/18 at 1204, Anesthesia Intra-op New Bag 11/30/2018 12:04 PM CDT lidocaine (PF) (cardiac) injection Given 11/30/2018 12:09 PM CDT 100 mg intravenous, As needed, Starting on Fri11/30/18 at 1209, Anesthesia Intra-op phenylephrine injection Given 11/30/2018 1:11 PM CDT 100 mcg intravenous, As needed, Starting on Fri11/30/18 at 1218, Anesthesia Intra-op Given 11/30/2018 12:27 PM CDT 100 mcg Given 11/30/2018 12:24 PM CDT 100 mcg propofol 10 mg/mL infusion Rate/Dose 11/30/2018 1:38 50 mcg/kg/min 2 2.3 mL/hr (DIPRIVAN) Change PM CDT intravenous, Continuous Infusion: Per Instructions PRN, Starting on Fri11/30/18 at 1212, Anesthesia Intra-op Rate/Dose Change 11/30/2018 12:37 PM CDT 75 mcg/kg/min 33.5 mL/hr Rate/Dose Change 11/30/2018 12:21 PM CDT 50 mcg/kg/min 22.3 mL/hr propofol injection (DIPRIVAN) Given 11/30/2018 12:11 PM CDT 150 mg intravenous, As needed, Starting on Fri11/30/18 at 1211, Anesthesia Intra-op remifentanil 20 mcg/mL in Rate/Dose 11/30/2018 1:38 0.1 mcg/kg/min 2 2.3 mL/hr NaCl 0.9% 100 mL infusion Change PM CDT (ULTIVA) Continuous Infusion: Per Instructions PRN, Starting on Fri11/30/18 at 1208, Anesthesia Intra-op Rate/Dose Change 11/30/2018 1:20 PM CDT 0.2 mcg/kg/min 44.6 mL/hr New Bag 11/30/2018 12:08 PM CDT 0.3 mcg/kg/min 67 mL/hr succinylcholine (PF) injection (ANECTINE ) Given 11/30/2018 12:12 PM CDT 100 mg intravenous, As needed, Starting on Fri11/30/18 at 1212, Anesthesia Intra-op vasopressin injection (PITRESSIN) Given 11/30/2018 1:38 PM CDT 1 Units As needed, Starting on Fri11/30/18 at 1231, Anesthesia Intra-op Given 11/30/2018 1:30 PM CDT 1 Units Given 11/30/2018 1:12 PM CDT 1 Units documented in this encounter Additional Health Concerns Assessment Noted Time PHQ-9 Depression Total Score: 11 10/28/2018 2:28 PM CD T documented as of this encounter Care Teams Studio Designer Relationship Specialty Start Date End Date Fausto Good P.A.-C. PCP - General 07/25/[address] [place] [phone] documented as of this encounter
--- OUTSIDE RECORDS SUMMARY | 2022-01-23 07:18 | XMS_ITS | Encounter Summary ---
:[address] [facility] Address [address] [place] [address] Care Team Providers Name Role Phone Fausto Good P.A.-C. Primary Care Provider [phone] Reason for Visit Reason Comments Med Refill Encounter Details Date Type Department Care Team Description 08/11/2018 Refill Division of Endocrinology in Sofia Dudley M.D. Med Refill [place], [place] [address] [place] [address] [address] [place] [phone] (Wo rk) Social History Tobacco Use Types [...] or relatives? How often do you attend rastafari or Never 2021 voodoo services? Do you belong to any clubs or No 02/16/2021 organizations such as rastafari groups, unions, fraternal or athletic groups, or [...] place to sleep or slept in a halfway (including now)? Sex Assigned at Date Recorded Female 10/01/2017 7:47 AM CDT documented as of this encounter Miscellaneous Notes Addendum Note - Leigh Rajput R.N. - 08/14/2018 4:12 PM CDT Addended by: LEIGH RAJPUT on: 08/14/2018 04:12 PM Modules accepted: Orders Telephone Encounter - Madelyn Maharaj - 08/14/2018 3:53 PM CDT Pharmacy sent back stating they needed pt's phone number as they didn't have them on file. Faxed back the prescription with her number written in. Got another fax stating the origin of the fax is from an unrecognized sources. Please verify the information below, sign and fax back to authorize the prescription was faxed from your office. Not exactly sure what this means? Telephone Encounter - Leigh Rajput R.N. - 08/11/2018 9:12 AM CDT Prescription renewal request did not meet nurse protocol because: medication is entered as historical mode and is not able to be renewed by protocol. Protocol utilized: Prescription Renewal Request for Medications: Division of Endocrinology, Diabetes, Metabolism and Nutrition. Telephone Encounter - Madelyn Maharaj - 08/11/2018 8:51 AM CDT Requesting refills for the following prescriptions-- Did the request come from a pharmacy or the patient? pharmacy Name of the pharmacy: [facility] Preferred Pharmacy Correct in EPIC (yes or no): yes Medication(s) requested: Propranolol tab 20 mg Last quantity issued: 270 Patient's Endocrine provider is: Dr Conroy Thank you, Johanna documented in this encounter Plan of Treatment Not on filedocumented as of this encounter Visit Diagnoses Not on filedocumented in this encounter Additional Health Concerns Assessment Noted Time PHQ-9 Depression Total Score: 7 09/12/2014 2:25 PM CDT documented as of this encounter Care Teams Hr Manager Relationship Specialty Start Date End Date Fausto Good P.A.-C. PCP - General 07/25/[address] [place] [phone] documented as of this encounter
--- OUTSIDE RECORDS SUMMARY | 2022-01-23 07:18 | XMS_ITS | Encounter Summary ---
:1965 Author Organization [facility] Address [address] [place] [address] Care Team Providers Name Role Phone Fausto Good P.A.-C. Primary Care Provider [phone] Reason for Visit Auth/Cert Specialty Diagnoses / Procedures Referred By Contact Refer red To Contact Diagnoses Hyperthyroidism Hyperthyroidism [E05.90] Procedures AL THYROIDECTOMY TOTAL/COMPLETE THYROIDECTOMY - TOTAL Referral ID Status Reason Start Date Expiration Date Visits Requ ested Visits Authorized [id number] 1 1 Encounter Details Date Type Department Care Team Description 11/30/2018 - Hospital [facility] Dy, Deionn M, Graves' Hypert hyroidism (Primary Dx); 12/01/2018 Encounter Latrice Rangel Hyperthyroidism [facility], [address] [place] [id number] Floor [phone] [address] [facility] (Work) [place], [place] [phone] (Fax) [phone] Social History Tobacco Use Types Packs/Day Years [...] or relatives? How often do you attend religion or Never 2021 catholic services? Do you belong to any clubs or No 02/16/2021 organizations such as religion groups, unions, fraternal or athletic groups, or [...] Sign Reading Time Taken Comments Blood Pressure 155/80 12/01/2018 10:39 AM CDT Pulse 65 12/01/2018 10:39 AM CDT Temperature 36.7 ??C (98.1 ??F) 12/01/2018 10:32 AM CDT Respiratory Rate 18 12/01/2018 8:17 AM CDT Oxygen Saturation 95% 12/01/2018 10:39 AM CDT Inhaled Oxygen Concentration - - Weight 74.4 kg (164 lb 0.4 oz) 11/30/2018 9:50 AM CDT Height 157 cm (5' 1.81) 11/30/2018 9:50 AM CDT Body Mass Index 30.18 11/30/2018 9:50 AM CDT documented in this encounter Discharge Summaries Rochelle Godwin M.B.B.S. - 12/01/2018 10:46 AM CDT DISCHARGE SUMMARY BRIEF OVERVIEW Discharge Provider: Elicia Shah M.D. Primary Care Providers: Fausto Good P.A.-C. (General) [address] [facility] [phone] Primary Care Provider Primary Care Provider Other Providers: None Admission Date: 11/30/2018 Discharge Date: 12/01/2018 PRINCIPAL DIAGNOSIS Hyperthyroidism SECONDARY DIAGNOSES Principal Problem: Hyperthyroidism Active Problems: Graves' Hyperthyroidism Resolved Problems: * No resolved hospital problems. * Surgery Information This Encounter Past Procedures (12/01/2017 to Today) Date Procedures Providers Location 11/30/2018 THYROIDECTOMY, TOTAL. Elicia Shah M.D.Thalji, Nassir M, M.B., Ch.B., Ph.D. RST [facility] OR DISCHARGE DISPOSITION Home or Self Care [1] ACTIVE ISSUES REQUIRING FOLLOW UP No return appointment. If you have any questions or concerns related to your surgery you may contacta member of Dr. Shah's service at during normal business hours. After hours you may contact the [facility] corrugated box machine operator at and ask for a member of Dr. Shah's service. You should have a TSH blood level drawn at six to eight weeks postoperatively, at sixmonths, and yearly thereafter. You may have your primary care physician or petroleum transport driver perform this test and make recommendations based on the result. Please fax the results to our office at . Please also follow up with her petroleum transport driver or PCP regarding your blood pressure medications. Hypocalcemia may occur after surgery. If you should experience new tingling in your fingers or numbness or tingling around your mouth, take two 500 mg calcium tablets. If symptoms don't subside within 30 minutes then take two more 500 mg calcium tablets. If the symptoms persist 30 minutes after the second dose of calcium or become severe, go to your local emergency room for evaluation and a calcium blood test. Please notify Dr. Shah's office. Monitor your incision for signs and symptoms of infection which may include, but are not limited to, increased swelling, pain, drainage, redness, fever, orchills. If development of any of these symptoms should occur, please contact our office or seek medical attention. Remove the Steri-Strips over your incision if they have not come off on their own in 2weeks. Your sutures are under the skin and will dissolve within the next few months. It is a normal part of the healing process for the incision to feel hard and bumpy underneath. The incision may actually look worse as it heals. Everyone heals differently, but within 2 to 3 months the incision shouldbe completely healed. While in the sun, please apply a thin layer of sunscreen to protect the incision and to keep it from turning red. It takes the incision about a year to fade as much as it's going to. Narcotic pain medications (such as Oxycodone and Tramadol) can cause numerous side effects including nausea, constipation, sedation, and confusion. Narcotic pain medication should be used for 5-7 days after surgery. Do not drive while taking narcotic pain medication. A stool softener may be used while taking this medication if you experience constipation. Any sksk-jwr-ixbkrks stool softener or laxative is appropriate (such as Colace, Dulcolax, or Senokot). At any time, acetaminophen (Tylenol) maybe used instead. One gram of Tylenol can be taken safely in most patients every 6 hours, keeping in mind that one is not to exceed 4 grams of Tylenol in a 24 hour period. Please check labels carefully for Tylenol (acetaminophen) combinations that may cause you to exceed the 4 gram per day limit. OUTPATIENT FOLLOW UP Future Appointments Date Time Provider Department Center 01/25/2019 10:00 AM Cam Saleh M.D. [facility] TEST RESULTS PENDING AT DISCHARGE Pending Labs Order Current Status Surgical Pathology, Frozen Lab In process DETAILS OF HOSPITAL STAY REASON FOR ADMISSION Hyperthyroidism Graves' Hyperthyroidism HOSPITAL COURSE PATHOLOGY: PENDING PROCEDURE: The patient was admitted to general surgery floor after she underwent the following procedure: Totalthyroidectomy. POSTOPERATIVE COURSE: The patient tolerated the procedure well. After a brief stay in the post anesthesia care unit, she transferred to the general surgery floor. Her hospital course was uneventful. At the time of dismissal, she was tolerating a general diet without nausea or emesis, her pain was controlled on oral medications, she was ambulating well, and was voiding without problem. CONSULTS ORDERED DURING THIS ADMISSION None CONDITION AT DISCHARGE stable Discharge instructions were provided to the patient and caregiver(s). documented in this encounter Discharge Instructions AttachmentsThe following attachments cannot be sent through Care Everywhere. Oxycodone, Rapid Release (By mouth) (Greenlandic)Levothyroxine (By mouth) (Greenlandic) documented in this encounter Medications at Time of Discharge Medication Sig Dispensed Refills Start Date End Date amLODIPine (NORVASC) 5 Take 1 tablet (5 mg 90 tablet 3 10/1102/15/2019 mg tablet total) by mouth daily. acetaminophen Take 2 tablets (1,000 0 12/01/2018 01/01/2019 (TYLENOL) 500 mg mg total) by mouth tablet every 6 (six) hours as needed for pain. cyclobenzaprine Take 1 tablet (10 mg 30 [...] LEVOTHROID) 125 mcg morning before tablet breakfast. oxyCODONE (ROXICODONE) Take 1 tablet (5 mg 5 tablet 0 11/1101/01/2019 5 mg immediate release total) by mouth every tabletIndications: 6 (six) hours as Acute Pain needed for severe pain or score 7-10 of 10 Indication: Acute Pain. propranolol (INDERAL) Take 1 tablet (20 mg 0 11/1102/15/2019 20 mg tablet total) by mouth 3 (three) times a day. sennosides-docusate Take 2 tablets by 60 tablet 11 9 01/01/2019 sodium (Senna with mouth at bedtime. Docusate Sodium) 8.6-50 mg per tablet documented as of this encounter Progress Notes Rochelle Godwin M.B.BFarzanaS. - 12/01/2018 10:46 AM CDT All clinical parameters were reviewed in detail including vital signs, intake and output, laboratoryvalues, imaging results and recommendations from consulted services. Patient was seen and examined at bedside. No acute events overnight. Voice is normal, no neck hematoma, parathormone is normal as well. Incision clean dry and intact. Pain is well controlled. Tolerating a general diet with adequate bowel and bladder function. Plan is to discharge today with 6 week follow up with TSH with the petroleum transport driver. Levothyroxine will be started on postop day 3. Scripts have been written and provided. Seen and discussed with Dr. Shah who agrees. Elicia Shah M.D. - 12/01/2018 8:25 AM CDT Doing well. Neck incision clean dry and intact. No clinically significant hematoma. Calcium, Total, S Date Value Ref Range Status 12/01/2018 9.0 8.6 - 10.0 mg/dL Final Parathyroid Hormone (PTH), S Date Value Ref Range Status 12/01/2018 27 15 - 65 pg/mL Final Assessment: Stable postoperative course Plan: Discharge home documented in this encounter OR Notes Op Note - Jayant Zapata M.B., Ch.B., Ph.D. - 11/30/2018 12:31 PM CDT FULL OP NOTE Procedure(s): THYROIDECTOMY, TOTAL. Surgeon(s) and Role: * Elicia Shah M.D. - Primary * Jayant Zapata M.B., Ch.B., Ph.D. - Catalyst Operator Gasoline Anesthesia Type General Pre-operative Diagnosis Hyperthyroidism Post-operative Diagnosis Hyperthyroidism Findings Hypervascular, though macroscopically normal thyroid gland. Pyramidal lobe resected. Complications Description of Procedure Patient was brought to the operating room and placed in the supine position. Under general endotracheal anesthesia, a transverse Kenny incision was made. We dissected through the subcutaneous tissue and platysma. The strap muscles were identified and divided in the avascular plane. The strap muscles were retracted laterally. We began on the left side. The superior pole was isolated and the vessels divided using the LigaSure device. The thyroid was rotated medially. The recurrent laryngeal nerve andsuperior and inferior parathyroids were identified and protected throughout the case. The thyroid was dissected off the trachea. A pyramidal lobe was dissected free of the underlying trachea. The procedure was repeated on the contralateral side in a similar fashion. This was sent to Pathology. Hemostasis was obtained. The strap muscles were reapproximated using interrupted 3 Vicryl suture. Platysma was closed using interrupted3-0 Vicryl suture. Skin was closed using running Quill suture. Patient was extubated and transferredto PACU in satisfactory condition. Wound class I Specimens ID Type Source Tests Collected by Time A : Total thyroid Tissue Thyroid SURGICAL PATHOLOGY, [facility] Elicia Shah M.D. 11/30/2018 1321 Drains None Estimated Blood Loss 25 mL Implants Implant Name Type Inv. Item Serial No. Residential Team Leader Lot No. LRB No. Used CLP HRZN TI 6 CLP SM RED - [id number] Hardware e.g. pins/screws/rods CLP HRZN TI 6 CLP SM RED [employer] [id number] N/A 1 CLP HRZN TI 6 CLP SM RED - [id number] Hardware e.g. pins/screws/rods CLP HRZN TI 6 CLP SM RED [employer] [id number] N/A 1 Jeanie Walker, ChFarzanaB., Ph.D. Brief Op Note - Jayant Zapata M.B., Ch.B., Ph.D. - 11/30/2018 12:31 PM CDT BRIEF OP NOTE Procedure(s): THYROIDECTOMY, TOTAL. Surgeon(s) and Role: * Elicia Shah M.D. - Primary * Jayant Zapata M.B., Ch.B., Ph.D. - Catalyst Operator Gasoline Anesthesia Type General Pre-operative Diagnosis Hyperthyroidism Post-operative Diagnosis Hyperthyroidism Findings Hypervascular, though macroscopically normal thyroid gland. Pyramidal lobe resected. Complications None Specimens ID Type Source Tests Collected by Time A : Total thyroid Tissue Thyroid SURGICAL PATHOLOGY, [facility] Elicia Shah M.D. 11/30/2018 1321 Drains None Estimated Blood Loss 25 mL Implants Implant Name Type Inv. Item Serial No. Residential Team Leader Lot No. LRB No. Used CLP HRZN TI 6 CLP SM RED - [id number] Hardware e.g. pins/screws/rods CLP HRZN TI 6 CLP SM RED [employer] [id number] N/A 1 CLP HRZN TI 6 CLP SM RED - [id number] Hardware e.g. pins/screws/rods CLP HRZN TI 6 CLP SM RED [employer] [id number] N/A 1 Jeanie Walker, Ch.B., Ph.D. documented in this encounter Miscellaneous Notes Hospital Course - Rochelle Godwin M.B.B.S. - 12/01/2018 11:07 AM CDT PATHOLOGY: PENDING PROCEDURE: The patient was admitted to general surgery floor after she underwent the following procedure: Totalthyroidectomy. POSTOPERATIVE COURSE: The patient tolerated the procedure well. After a brief stay in the post anesthesia care unit, she transferred to the general surgery floor. Her hospital course was uneventful. At the time of dismissal, she was tolerating a general diet without nausea or emesis, her pain was controlled on oral medications, she was ambulating well, and was voiding without problem. documented in this encounter Plan of Treatment Not on filedocumented as of this encounter Procedures Procedure Name Priority Date/Time Associated Diagnosis Comme nts PARATHYROID HORMONE Routine 12/01/2018 3:21 Resul ts for this (PTH), S AM CDT procedure are i n the results section. CALCIUM, TOT, S/P Routine 12/01/2018 3:21 Results for this AM CDT procedure are i n the results section. ADULT OXYGEN THERAPY Routine 11/30/2018 2:07 PM CDT SURGICAL PATHOLOGY, Routine 11/30/2018 1:21 Hyperthyroidism Re sults for this [facility] PM CDT procedure are i n the results section. THYROIDECTOMY - TOTAL 11/30/2018 11:48 Hyperthyroidism AM CDT documented in this encounter Results PTH (Parathyroid Hormone) (12/01/2018 3:21 AM CDT) athologist Signature Parathyroid 27 15 - 65 12/01/2018 DT Hormone (PTH), S pg/mL 6:58 AM CDT Specimen Anatomical Collection Method Collection Time Receive d Time (Source) Location / / Volume Laterality Blood (Blood, 12/01/2018 3:21 AM 12/02/19 3:48 Venous) CDT AM CDT Jayant Ware, ChFarzanaB., Ph.D. LAB BLOOD ADD-ON Performing Organization Address [facility] Phon e Number [facility] - [address] Calcium, Total (12/01/2018 3:21 AM CDT) athologist [facility] Calcium, Total, 9.0 8.6 - 10.0 12/01/2018 DT S mg/dL 6:52 AM CDT Specimen Anatomical Collection Method Collection Time Receive d Time (Source) Location / / Volume Laterality Blood (Blood, 12/01/2018 3:21 AM 12/02/19 3:48 Venous) CDT AM CDT Jayant Ware, ChFarzanaB., Ph.D. LAB BLOOD ADD-ON Performing Organization Address City/[facility] Phon e Number [facility] - [address] Surgical Pathology, [facility] (11/30/2018 1:21 PM CDT) Component Value Ref Test Analysis Performed Pathologis t Range Method Time At [facility] 12/01/2018 [facility] 4:05 PM CDT Aaron in Mirna Bullard 12/01/2018 [facility] the Hortensiaorgjievski, 4:05 PM Interpretation Latrice-Pathology CDT Fellow Report Prabhakar Conner.B.S. [phone] 12/01/2018 Casey ANDERSEN electronically I verify that I have examined all relevant slides/ma terials 4:05 PM signed by for the specimen(s) and rendered or confirmed the diagnosis. CDT Seen in consultation with Veronica Conroy M.D. [phone] Gross Description A. ??Received fresh labeled total thyroid is a 16 gram 12/01/2018 [facility] thyroid with a 4.3 x 2.5 x 1.6 cm right lobe, a 4.2 x 3.4 x 4:05 PM 1.5 cm left lobe, and a 4.4 x 2.1 x 1 cm isthmus with CDT pyramidal lobe. ??The capsule is inked and margins are taken perpendicularly. ??No masses of nodules identified grossly. Digital Specialist tissue submitted for permanent sections only. ??Grossed by LAB. Block Summary A Total thyroid 12/01/2018 [facility] A1 Right lobe 4:05 PM A2 Left lobe CDT A3 Isthmus Interpretation FINAL DIAGNOSIS 12/01/2018 [facility] A. ??Thyroid, total thyroidectomy: Chronic lymphocytic 4:05 PM thyroiditis with reactive changes (clinical diagnosis of CDT Graves disease). Specimen (Source) Anatomical Collection Method Collection Time Re ceived Time Location / / Volume Laterality Tissue (Thyroid) 11/30/2018 1:21 PM CDT Narrative This result has an attachment that is no t available. Elicia Shah M.D. LAB SURG PATH ORDERABLES Performing Organization Address City/State/ZIP Code Phon e Number [facility] - [address] [place], [place] [address] [facility] [place] [address] [facility] [address] documented in this encounter Visit Diagnoses Diagnosis Hyperthyroidism - Primary Hyperthyroidism Graves' Hyperthyroidism Graves' Hyperthyroidism documented in this encounter Admitting Diagnoses Diagnosis Hyperthyroidism Graves' Hyperthyroidism documented in this encounter Administered Medications Inactive Administered Medications - up to 3 most recent administrations Medication Order MAR Action Action Date Dose Rate Site acetaminophen tablet 1,000 mg Given 11/30/2018 11:34 AM CDT 1,00 0 mg (TYLENOL) 1,000 mg, oral, Once, On 11/30/18 at 1130, For 1 dose, Pre-Op, Community Sports Coordinator, PreOp with sips acetaminophen tablet 1,000 mg (TYLENOL) Given 12/01/2018 6:49 AM CDT 1,000 mg 1,000 mg, oral, Every 6 hours, First dose on Fri11/30/18 at 1800, (not to exceed 4 grams in 24 hours) Given 11/30/2018 11:42 PM CDT 1,000 mg Given 11/30/2018 5:39 PM CDT 1,000 mg caffeine tablet 200 mg Given 11/30/2018 11:47 AM CDT 200 mg 200 mg, oral, Once, On Fri11/30/18 at 1200, For 1 dose, Pre-Op, With sips calcium carbonate chewable tablet Given 12/01/2018 8:1 8 AM CDT 600 mg of calcium 600 mg of calcium (TUMS E-X) 600 mg of calcium, oral, 2 times daily, First dose on Fri11/30/18 at 2100, Doses listed are in mg of elemental calcium. Take with food. 750 mg calcium carbonate contains 300 mg of elemental calcium. Given 11/30/2018 9:21 PM CDT 600 mg of calcium docusate sodium capsule 100 mg (COLACE) Given 12/01/2018 8:18 AM CDT 100 mg 100 mg, oral, 2 times daily, First dose on Fri11/30/18 at 2100, Do NOT crush or chew. Given 11/30/2018 9:21 PM CDT 100 mg fentaNYL injection 25 mcg (SUBLIMAZE) Given 11/30/2018 2:35 PM CDT 25 mcg 25 mcg, intravenous, Every 2 min PRN, For pain 4 or greater (maximum 100 mcg). If max dose of Fentanyl is reached and if pain is greater than 4, discontinue Fentanyl: give Hydromorphone, Starting on Fri11/30/18 at 1407, PACU (only) Given 11/30/2018 2:25 PM CDT 25 mcg Given 11/30/2018 2:23 PM CDT 25 mcg lactated ringers New Bag 11/30/2018 3:13 PM CDT 75 mL/hr 75 mL/hr 75 mL/hr, intravenous, Continuous, Starting on Fri11/30/18 at 1345, PACU & Post-Op Continued from OR 11/30/2018 2:08 PM CDT 75 mL/hr 75 mL/hr nicotine 14 mg/24 hr 1 Medication Applied 11/30/2018 9:49 PM CDT 1 pa tch Right Arm patch (NICODERM CQ) 1 patch, transdermal, Administer over 24 Hours, Every 24 hours, First dose on Fri11/30/18 at 2200 ondansetron (PF) injection 4 mg (ZOFRAN) Given 11/30/2018 11:47 AM CDT 4 mg 4 mg, intravenous, Once as needed, nausea, vomiting, Starting on Fri11/30/18 at 1146, For 1 dose, Pre-Op propranolol tablet 20 mg (INDERAL) Given 12/01/2018 8:18 AM CDT 20 mg 20 mg, oral, 3 times daily, First dose (after last modification) on Fri11/30/18 at 1645 Given 11/30/2018 9:21 PM CDT 20 mg Given 11/30/2018 5:01 PM CDT 20 mg scopolamine base 1 mg Medication Applied 11/30/2018 11:47 AM 1 patch Behind Right over 3 days 1 patch CDT Ear (TRANSDERM SCOP) 1 patch, transdermal, Administer over 72 Hours, Once as needed, nausea, vomiting, Starting on Fri11/30/18 at 1146, For 1 dose, Pre-Op, Contains 1.5 mg to deliver 1 mg/72 hours. sennosides-docusate sodium 8.6-50 mg per Given 11/30/2018 9: 21 PM CDT 2 tablets tablet 2 tablet (SENOKOT-S) 2 tablet, oral, Daily at bedtime, First dose on Fri11/30/18 at 2100, hold for diarrhea documented in this encounter Active and Recently Administered Medications Times are shown in CDT. Scheduled Medication Order 11/29/2018 11/30/2018 12/01/2018 acetaminophen tablet 1,000 mg (TYLENOL) (COMPLETED) 1134 (Given - Provider: Arturo David RLeonela) 1,000 mg, oral, Once, On Fri11/30/18 at 1130, For 1 dose, Pre-Op, Community Sports Coordinator, PreOp with sips acetaminophen tablet 1,000 mg (TYLENOL) 2288 (Given - Provider: Ekaterina Cantu R.N.)6557 (Given - Provider: Arielle Gan R.N.) 0671 (Given - Provider: Arielle Gan RFarzanaNFarzana) 1,000 mg, oral, Every 6 hours, First dos e on Fri11/30/18 at 1800, (not to exceed 4 grams in 24 hours) caffeine tablet 200 mg (COMPLETED) 1147 (Given - Provider: Arturo David RFarzanaNFarzana) 200 mg, oral, Once, On Fri11/30/18 at 1200, For 1 dose, Pre-Op, With sips calcium carbonate chewable tablet 600 mg of calcium (TUMS E- X) 2120 (Given - Provider: Ekaterina Cantu R.N.) 817 (Given - Provider: Deena rivera R.N.) 600 mg of calcium, oral, 2 times daily, First dose on Fri11/30/18 at 2100, Doses listed are in mg of elemental calcium. Take with food. 750 mg calcium carbonate contains 300 mg of elemental calcium. docusate sodium capsule 100 mg (COLACE) 2120 (Given - Provider: Ekaterina Cantu R.N.) 0818 (Given - Provider: Deena rivera R.N.) 100 mg, oral, 2 times daily, First dose on Fri11/30/18 at 2100, Do NOT crush or chew. nicotine 14 mg/24 hr 1 patch (NICODERM CQ) 2148 (Medication Applied - Provider: Ekaterina Cantu R.N.) 1046 (Due: Medication Removed - Provider : Discharge Provider, Automatic - Comment: Time automatically adjusted from order being discontinued) 1 patch, transdermal, Administer over 24 Hours, Every 24 hours, First dose on Fri11/30/18 at 2200 propranolol tablet 20 mg (INDERAL) 1700 (Given - Provider: Ekaterina Cantu R.N.)2120 (Given - Provider: Ekaterina Cantu R.N.) 0818 (Given - Provider: Deena Ying R.N.) 20 mg, oral, 3 times daily, First dose ( after last modification) on Fri11/30/18 at 1645 sennosides-docusate sodium 8.6-50 mg per tablet 2 tablet (SE NOKOT-S) 2120 (Given - Provider: Ekaterina Cantu R.N.) 2 tablet, oral, Daily at bedtime, First dose on Fri11/30/18 at 2100, hold for diarrhea Continuous Medication Order 11/29/2018 11/30/2018 12/01/2018 lactated ringers (CANCELED) 1408 (Contin ued from OR - Provider: Kalie Yoon R.N.)1513 (New Bag - Provider: Angie Flores R.N.) 75 mL/hr, intravenous, Continuous, Start ing on Fri11/30/18 at 1345, PACU & Post-Op PRN Medication Order 11/29/2018 11/30/2018 12/01/2018 cellulose, oxidized 1 X 2 pad (SURGICEL) (CANCELED) 1323 (Given - Provider: Elicia Shah M.D.) As needed, Starting on Fri11/30/18 at 1323, Intra-Op cyclobenzaprine tablet 10 mg (FLEXERIL) 10 mg, oral, 3 times daily PRN, muscle spasms, Starting 11/11 at 1642 droperidol injection 0.625 mg (INAPSINE) 0.625 mg, intravenous, Every 6 hours PRN , nausea, vomiting, Starting Fri11/30/18 at 1512, For 48 hours, Total of 3 doses in 24 hour period. RASS must be -2 or higher to administer. Reassess for nausea or vomiting after at least 10 minutes. I f nausea or vomiting persists administer next ordered antiemetic medications (order for antiemetic medication administration ondansetron then droperidol then promethazine). fentaNYL injection 25 mcg (SUBLIMAZE) (CANCELED) 1421 (Given - Provider: Kalie Yoon R.N.)1423 (Given - Provider: Kalie Yoon R.N.)1425 (Given - Provider: Kaile Yoon R.N.)1435 (Given - Provider: Kalie Yoon R.N.) 25 mcg, intravenous, Every 2 min PRN, Fo r pain 4 or greater (maximum 100 mcg). If max dose of Fentanyl is reached and if pain is greater than 4, discontinue Fentanyl: give Hydromorphone, Starting on Fri11/30/18 at 1407, PACU (only) naloxone injection 0.2 mg (NARCAN) 0.2 mg, intravenous, As needed, respirat ory depression, Starting 11/30/18 at 1512, For respiratory rate less than 8 breaths per minute or RASS score of -3, -4, -5. Apply oxygen to keep oxygen saturations greater than 90% and notify service. ondansetron (PF) injection 4 mg (ZOFRAN) (COMPLETED) 1147 (Given - Provider: Arturo David R.N.) 4 mg, intravenous, Once as needed, nause a, vomiting, Starting on Fri11/30/18 at 1146, For 1 dose, Pre-Op ondansetron (PF) injection 4 mg (ZOFRAN) 4 mg, intravenous, Every 6 hours PRN, na usea, vomiting, Starting Fri11/30/18 at 1512, For 48 hours, Reassess for nausea or vomiting after at least 10 minutes. If nausea or vomiting persists administer next ordered antiemetic medications (ord er for antiemetic medication administration ondansetron then droperidol then promethazine). oxyCODONE IR tablet 10 mg (ROXICODONE) 10 mg, oral, Every 4 hours PRN, moderate pain or score 4-6 of 10, severe pain or score 7-10 of 10, Starting 11/30/18 at 1512 oxyCODONE IR tablet 5 mg (ROXICODONE) 5 mg, oral, Every 4 hours PRN, mild pain or score 1-3 of 10, Starting 11/30/18 at 1512 promethazine injection 6.25 mg (PHENERGAN) 6.25 mg, intravenous, Every 6 hours PRN, nausea, vomiting, Starting 11/30/18 at 1512, For 48 hours, RASS must be -2 or higher to administer. Reassess for nausea/vomiting after at least 10 minutes. I f nausea or vomiting persists administer next ordered antiemetic medications (order for antiemetic medication administration ondansetron then droperidol then promethazine). scopolamine base 1 mg over 3 days 1 patch (TRANSDERM SCOP) 1147 (Medication Applied - Provider: Arturo David R.N.) 1046 (Due: Medication Removed - Provider: Discharge Provider, Automatic - Comment: Time automatically adjusted from order being discontinued) 1 patch, transdermal, Administer over 72 Hours, Once as needed, nausea, vomiting, Starting on 11/30/18 at 1146, For 1 dose, Pre-Op, Contains 1.5 mg to deliver 1 mg/72 hours. documented in this encounter Additional Health Concerns Assessment Noted Time PHQ-9 Depression Total Score: 11 10/28/2018 2:28 PM CD T documented as of this encounter Care Teams Master [employer] Relationship Specialty Start Date End Date Fausto Good P.A.-C. PCP - General 07/25/[address] [place] [phone] documented as of this encounter
--- OUTSIDE RECORDS SUMMARY | 2022-01-23 07:18 | XMS_ITS | Encounter Summary ---
:1965 Author Organization [facility] Address [address] [place] [address] Care Team Providers Name Role Phone Fausto Good P.A.-C. Primary Care Provider Reason for Referral Outpatient (Routine) - Closed Specialty Diagnoses / Procedures Referred By Contact Refer red To Contact Endocrinology Sofia Conroy M.D. [facility] [address] [place] [address] [phone] Referral ID Status Reason Start Date Expiration Date Visits Requ ested Visits Authorized [id number] Closed 07/27/2018 07/27/2019 1 1 Encounter Details Date Type Department Care Team Description 07/23/2018 Orders Only Division of Rocco Baltazar Endocrinology in [place]ina Corbett (Primary Dx) [address] [place] [phone] Social History Tobacco Use Types Packs/Day Years [...] do you attend islam or Never 2021 islam services? Do you belong to any clubs or No 02/16/2021 organizations such as islam groups, unions, fraIntertwine or athletic groups, or school groups? How [...] or slept in a fdc (including now)? Sex Assigned at Date Recorded Female 10/01/2017 7:47 AM CDT documented as of this encounter Plan of Treatment Scheduled Referrals Name Type Priority Associated Order Schedule Diagnoses Endocrinology office Outpatient Referral Routine Expected: visit (clinic) 09/22/2018 (Approximate), Expires: 07/23/2021 documented as of this encounter Results T4 (Thyroxine), Free (09/30/2018 7:39 AM CDT) athologist Signature T4 (Thyroxine), 1.5 0.9 - 1.7 09/30/2018 Free, S ng/dL 8:41 AM CDT Specimen Anatomical Collection Method Collection Time Receive d Time (Source) Location / / Volume Laterality Blood (Blood, 09/30/2018 7:39 AM 10/01/19 7:48 Venous) CDT AM CDT Sofia Conroy M.D. LAB BLOOD ADD-ON Performing Organization Address City/State/ZIP Code Phon e Number [facility] - [address] [place], [place] [address] [facility] (ABNORMAL) S-TSH (Thyroid-Stimulating Hormone - Sensitive) (09/30/2018 7:39 AM CDT) Analysis Performed At Patho logist Time Signature TSH, Sensitive <0.01 (L) 0.3 - 4.2 09/30/2018 mIU/L 8:41 AM CDT Specimen Anatomical Collection Method Collection Time Receive d Time (Source) Location / / Volume Laterality Blood (Blood, 09/30/2018 7:39 AM 10/01/19 19 7:48 Venous) CDT AM CDT Sofia Conroy M.D. LAB BLOOD ADD-ON Performing Organization Address City/State/ZIP Code Phon e Number [facility] - [address] [place] [address] [facility] documented in this encounter Visit Diagnoses Diagnosis Hyperthyroidism - Primary documented in this encounter Additional Health Concerns Assessment Noted Time PHQ-9 Depression Total Score: 7 09/12/2014 2:25 PM CDT documented as of this encounter Care Teams Director Of Emergency Nursing Relationship Specialty Start Date End Date Fausto Good P.A.-C. PCP - General 07/25/[address] [place] [phone] documented as of this encounter
--- OUTSIDE RECORDS SUMMARY | 2022-01-23 07:18 | XMS_ITS | Encounter Summary ---
:1965 Author Organization [facility] Address [address] [place] [address] Care Team Providers Name Role Phone Fausto Good P.A.-C. Primary Care Provider Encounter Details Date Type Department Care Team Description 10/26/2018 Hospital Encounter Department of Sheng Good; Laboratory Medicine Zahra Lambert Screening Examination Diabetes Mellitus; in [place], [address] [place] [address] Encounter For Screening For Cardiovascul ar Disorders; [place], [place] Iron Deficiency Anemia Scree brian Exam [address] [address] [place], [place] [phone] (Work) [phone] Social History Tobacco Use Types Packs/Day Years [...] do you attend adventist or Never 2021 anabaptism services? Do you [...] End Date amLODIPine (NORVASC) Take 1 tablet (2.5 mg 30 tablet 09/1110/28/2018 2.5 mg tablet total) by mouth daily. chlorhexidine 2 (two) times a day. 0 03/31/2018 0 10/28/2018 (PERIDEX) 0.12 % mouthwash EPINEPHrine (EPIPEN) Inject 0.3 mL (0.3 mg 1 each 12/1110/28/2018 0.3 mg/0.3 mL total) intramuscularly injection syringe as needed for anaphylaxis. Inject into the thigh. EPINEPHrine (EPIPEN) Inject 0.3 mL (0.3 mg 1 each 12/1111/30/2018 0.3 mg/0.3 mL total) intramuscularly injection syringe as needed for anaphylaxis. Inject into the thigh. ibuprofen Take 600 mg by mouth 4 0 03/31/2018 (ADVIL,MOTRIN) 600 mg (four) times a day as tablet needed. methIMAzole Take 3 tablets (30 mg 90 tablet 09/30/2018 (TAPAZOLE) 10 mg total) by mouth daily. tablet propranolol (INDERAL Take 1 capsule (120 mg 30 capsule 11 11/30/2018 LA) 120 mg 24 hr total) by mouth daily. capsule documented as of this encounter Plan of Treatment Not on filedocumented as of this encounter Procedures Procedure Name Priority Date/Time Associated Diagnosis Comme nts LIPID PANEL, S Routine 10/26/2018 11:42 Hyperthyroidism Results for this AM CDT Screening Examination proced ure are in Diabetes Mellitu s the results Encounter For section. Screening For Cardiovascular Disorders Iron Deficiency Anemia Screening Exam CBC WITH Routine 10/26/2018 11:42 Hyperthyroidism Results for this DIFFERENTIAL, B AM CDT Screening Examination pro cedure are in Diabetes Mellitu s the results Encounter For section. Screening For Cardiovascular Disorders Iron Deficiency Anemia Screening Exam THYROID-STIMULATING Routine 10/26/2018 11:42 Hyperthyroi dism Results for this HORMONE-SENSITIVE AM CDT Screening Examination p rocedure are in (S-TSH) Diabetes Mellitu s the results Encounter For section. Screening For Cardiovascular Disorders Iron Deficiency Anemia Screening Exam COMPREHENSIVE Routine 10/26/2018 11:42 Hyperthyroidism Results for this METABOLIC PANEL, S/P AM CDT Screening Examinatio n procedure are in Diabetes Mellitu s the results Encounter For section. Screening For Cardiovascular Disorders Iron Deficiency Anemia Screening Exam documented in this encounter Results CBC [...] P.A.-C. LAB BLOOD ADD-ON Performing Organization Address [facility] Phon e Number [facility] [address] [place] [address] LAB (ABNORMAL) S-TSH (Thyroid-Stimulating Hormone - Sensitive) (10/26/2018 11:42 AM CDT) athologist Signature TSH, Sensitive 5.8 (H) 0.3 - 4.2 10/26/2018 mIU/L 1:13 PM CDT Comment: Biotin has been identified by the lazarus singh as a potential interfering substance. ??Higher concentr ations of biotin may be found in multivitamins, hair/nail supple ments, and workout supplements. ??If the result does not [facility] clinical observations, repeat testing after patient refrains fr om the use of supplements for at least 12 hours. Specimen Anatomical Collection Method Collection Time Receive d Time (Source) Location / / Volume Laterality Blood (Blood, 10/26/2018 11:42 10/26/2018 Venous) AM CDT 11:51 AM CDT Fausto Good P.A.-C. LAB BLOOD ADD-ON Performing Organization Address [facility] Phon e Number [facility] [address] [place] [phone] LAB Lipid Panel (10/26/2018 11:42 AM CDT) [...] Organization Address City/State/ZIP Code Phon e Number [facility] [address] [place] [address] LAB (ABNORMAL) Comprehensive Metabolic Panel (10/26/2018 11:42 AM CDT) athologist Signature Potassium, S 4.4 3.6 - [...] >=60 10/26/2018 Black/ mL/min/BSA 1:51 PM CDT Sammarinese Comment: ----ADDITIONAL INFORMATION---- Estimated GFR calculated using [...] Organization Address City/State/ZIP Code Phon e Number [facility] [address] [place] [address] LAB documented in this encounter Visit Diagnoses Diagnosis Hyperthyroidism Screening Examination Diabetes Mellitus Encounter For Screening For Cardiovascul ar Disorders Iron Deficiency Anemia Screening Exam documented in this encounter Additional Health Concerns Assessment Noted Time PHQ-9 Depression Total Score: 7 09/12/2014 2:25 PM CDT documented as of this encounter Care Teams Compressor Battery Pellets Relationship Specialty Start Date End Date Fausto Good P.A.-C. PCP - General 07/25/[address] [place] [phone] documented as of this encounter
--- OUTSIDE RECORDS SUMMARY | 2022-01-23 07:18 | XMS_ITS | Encounter Summary ---
:1965 Author Organization [facility] Address [address] [place] [address] Care Team Providers Name Role Phone Fausto Good P.A.-C. Primary Care Provider [phone] Reason for Visit Auth/Cert Specialty Diagnoses / Procedures Referred By Contact Refer red To Contact Diagnoses Hyperthyroidism Hyperthyroidism [E05.90] Procedures AZ THYROIDECTOMY TOTAL/COMPLETE THYROIDECTOMY - TOTAL Referral ID Status Reason Start Date Expiration Date Visits Requ ested Visits Authorized [id number] 1 1 Encounter Details Date Type Department Care Team Description 11/30/2018 Surgery [facility] OR Elicia Shah M.D. THYROIDECTOMY, TOTAL. [address] [place] [address] [place], [place] [phone] (Wo rk) Social History Tobacco Use Types [...] do you attend caodaism or Never 2021 worship services? Do you [...] Sign Reading Time Taken Comments Blood Pressure 164/68 11/30/2018 2:30 PM CDT Pulse 96 11/30/2018 2:30 PM CDT Temperature 36.4 ??C (97.5 ??F) 11/30/2018 2:02 PM CDT Respiratory Rate 17 11/30/2018 2:30 PM CDT Oxygen Saturation 93% 11/30/2018 2:30 PM CDT Inhaled Oxygen Concentration - - Weight 74.4 kg (164 lb 0.4 oz) 11/30/2018 9:50 AM CDT Height 157 cm (5' 1.81) 11/30/2018 9:50 AM CDT Body Mass Index 30.18 11/30/2018 9:50 AM CDT documented in this encounter Discharge Summaries Rochelle Godwin M.B.B.S. - 12/01/2018 10:46 AM CDT DISCHARGE SUMMARY BRIEF OVERVIEW Discharge Provider: Elicia Shah M.D. Primary Care Providers: Fausto Good P.ANathan (General) [address] [place] [phone] Primary Care Provider Primary Care Provider Other [...] hours. After hours you may contact the [facility], [facility] kick press operator at and ask for a member of Dr. Shah's service. You should have a TSH blood level drawn at six to eight weeks postoperatively, at sixmonths, and yearly thereafter. You may have your primary care physician or manager bakery perform this test and make recommendations based on the result. Please fax the results to our office at . Please also follow up with her manager bakery or PCP regarding your blood pressure medications. [...] this medication if you experience constipation. Any [id number]-ipsrkem stool softener or laxative is appropriate (such [...] 01/25/2019 10:00 AM Cam Saleh M.D. [facility] BPFKO TEST RESULTS PENDING AT DISCHARGE Pending [...] Care Everywhere. Oxycodone, Rapid Release (By mouth) (Moldovan)Levothyroxine (By mouth) (Moldovan) documented in this encounter Medications at Time [...] of this encounter Progress Notes Rochelle Godwin M.B.B.S. - 12/01/2018 10:46 AM CDT All clinical [...] week follow up with TSH with the manager bakery. Levothyroxine will be started on postop day [...] * Jayant Zapata M.B., Ch.B., Ph.D. - Satellite Communications Engineer Anesthesia Type General Pre-operative Diagnosis Hyperthyroidism Post-operative [...] Implant Name Type Inv. Item Serial No. Basic Combatant Swimmer Lot No. LRB No. Used CLP HRZN TI 6 CLP SM RED - [id number] Hardware e.g. pins/screws/rods CLP HRZN TI 6 CLP SM RED [employer] [id number] N/A 1 CLP HRZN TI 6 CLP SM RED - [id number] Hardware e.g. pins/screws/rods CLP HRZN TI 6 CLP SM RED [employer] [id number] N/A 1 Jeanie Walker, Ch.B., Ph.D. Brief Op Note - Jayant Zapata M.B., Ch.B., Ph.D. - 11/30/2018 12:31 PM CDT BRIEF OP NOTE Procedure(s): THYROIDECTOMY, TOTAL. Surgeon(s) and Role: * Elicia Shah M.D. - Primary * Jayant Zapata M.B., Ch.B., Ph.D. - Satellite Communications Engineer Anesthesia Type General Pre-operative Diagnosis Hyperthyroidism Post-operative Diagnosis Hyperthyroidism Findings Hypervascular, though macroscopically normal thyroid gland. Pyramidal lobe resected. Complications None Specimens ID Type Source Tests Collected by Time A : Total thyroid Tissue Thyroid SURGICAL PATHOLOGY, [facility] Elicia Shah M.D. 11/30/2018 1321 Drains None Estimated Blood Loss 25 mL Implants Implant Name Type Inv. Item Serial No. Basic Combatant Swimmer Lot No. LRB No. Used CLP HRZN TI 6 CLP SM RED - [id number] Hardware e.g. pins/screws/rods CLP HRZN TI 6 CLP SM RED [employer] [id number] N/A 1 CLP HRZN TI 6 CLP SM RED - [id number] Hardware e.g. pins/screws/rods CLP HRZN TI 6 CLP SM RED [employer] [id number] N/A 1 Jeanie Walker, Ch.B., Ph.D. documented [...] Signature Parathyroid 27 15 - 65 12/01/2018 DTL Hormone (PTH), S pg/mL 6:58 AM CDT Specimen Anatomical Collection Method Collection Time Receive d Time (Source) Location / / Volume Laterality Blood (Blood, 12/01/2018 3:21 AM 12/02/19 19 3:48 Venous) CDT AM CDT Jayant Ware Ch.B., Ph.D. LAB BLOOD ADD-ON Performing Organization Address [facility] Phon e Number [facility] - [address] [place] [address] Calcium, Total (12/01/2018 3:21 AM CDT) athologist [facility] Calcium, Total, 9.0 8.6 - 10.0 12/01/2018 DTL S mg/dL 6:52 AM CDT Specimen Anatomical Collection Method Collection Time Receive d Time (Source) Location / / Volume Laterality Blood (Blood, 12/01/2018 3:21 AM 12/02/19 19 3:48 Venous) CDT AM CDT Jayant Ware Ch.B., Ph.D. LAB BLOOD ADD-ON Performing Organization Address City/[facility] Phon e Number [facility] - [address] [place] [address] Laboratories-[facility] [address] [facility] Surgical Pathology, Frozen Lab (11/30/2018 1:21 PM CDT) Component Value Ref Test Analysis Performed Pathologis t Range Method Time At [facility] 12/01/2018 METH 4:05 PM CDT Participated in Mirna Bullard 12/01/2018 Frank 4:05 PM Noah Pollard-Pathology CDT Fellow Report Prabhakar Conner.B.S. [phone] 12/01/2018 Caesy ANDERSEN electronically I verify that I have examined all relevant slides/ma terials 4:05 PM signed by for the specimen(s) and rendered or confirmed the diagnosis. CDT Seen in consultation with Veronica Conroy M.D. [phone] Gross Description A. ??Received fresh labeled total [...] perpendicularly. ??No masses of nodules identified grossly. Dimension Mill Worker tissue submitted for permanent sections only. ??Grossed [...] Organization Address City/State/ZIP Code Phon e Number [facility] - [address] [place], [place] [address] [facility] [place] [address] Laboratories-[facility] [address] documented in this encounter Visit Diagnoses Diagnosis Hyperthyroidism - Primary Hyperthyroidism Graves' Hyperthyroidism Hyperthyroidism documented in this encounter Admitting Diagnoses Diagnosis Hyperthyroidism Graves' Hyperthyroidism documented in this encounter Administered Medications Inactive Administered Medications - up to 3 most recent administrations Medication Order MAR Action Action Date Dose Rate Site acetaminophen tablet 1,000 mg Given 11/30/2018 11:34 AM CDT 1,00 0 mg (TYLENOL) 1,000 mg, oral, Once, On 11/30/18 at 1130, For 1 dose, Pre-Op, Table Tender Sludge, PreOp with sips acetaminophen tablet 1,000 mg [...] 9:21 PM CDT 600 mg of calcium cellulose, oxidized 1 X 2 pad (SURGICE L) Given 11/30/2018 1:23 PM CDT 1 each As needed, Starting on Fri11/30/18 at 1323, Intra-Op docusate sodium capsule 100 mg (COLACE) Given [...] 12/01/2018 acetaminophen tablet 1,000 mg (TYLENOL) (COMPLETED) 3653 (Given - Provider: Arturo David R.N.) 1,000 mg, oral, Once, On Fri11/30/18 at 1130, For 1 dose, Pre-Op, Table Tender Sludge, PreOp with sips acetaminophen tablet 1,000 mg (TYLENOL) 3256 (Given - Provider: Ekaterina Cantu R.N.)2342 (Given - Provider: Arielle Gan R.N.) 0649 (Given - Provider: Arielle Gan R.N.) 1,000 mg, oral, Every 6 hours, First dos e on Fri11/30/18 at 1800, (not to exceed 4 grams in 24 hours) caffeine tablet 200 mg (COMPLETED) 1147 (Given - Provider: Marcelina PradoNFarzana) 200 mg, oral, Once, On Fri11/30/18 at 1200, For 1 dose, Pre-Op, With sips calcium carbonate chewable tablet 600 mg of calcium (TUMS E- X) 2120 (Given - Provider: Ekaterina Cantu R.N.) 08 (Given - Provider: Deena rivera R.N.) 600 [...] Provider: Kalie Yoon R.N.)1425 (Given - Provider: Kalie Yoon R.N.)1435 (Given - Provider: Kalie Yoon R.N.) 25 mcg, intravenous, Every 2 min PRN, Fo r pain 4 or greater (maximum 100 mcg). If max dose of Fentanyl is reached and if pain is greater than 4, discontinue Fentanyl: give Hydromorphone, Starting on Fri11/30/18 at 1407, PACU (only) naloxone injection 0.2 mg (NARCAN) 0.2 mg, intravenous, As needed, respirat ory depression, Starting Fri11/30/18 at 1512, For respiratory rate less than [...] documented as of this encounter Care Teams Student Support Advisor Relationship Specialty Start Date End Date Fausto Good P.A.-C. PCP - General 07/25/[address] [place] [phone] documented as of this encounter
--- OUTSIDE RECORDS SUMMARY | 2022-01-23 07:18 | XMS_ITS | Encounter Summary ---
:1965 Author Organization [facility] Address [address] [place] [address] Care Team Providers Name Role Phone Fausto Good P.A.-C. Primary Care Provider [phone] Encounter Details Date Type Department Care Team Description 11/20/2018 Hospital Encounter Department of ConroySofia monteiro, Hyper thyroidism Laboratory Medicine in [place], [place] [address] [phone] Social History Tobacco Use Types Packs/Day Years [...] or relatives? How often do you attend catholic or Never 2021 mu-ism services? Do you belong to any clubs or No 02/16/2021 organizations such as catholic groups, unions, fraternal or athletic groups, or [...] needed for anaphylaxis. Inject into the thigh. methIMAzole (TAPAZOLE) Take 3 tablets (30 mg 90 tablet 12/01/2018 10 mg tablet total) by mouth daily. propranolol (INDERAL Take 1 capsule (120 mg 30 capsule 11 11/30/2018 [place]) 120 mg 24 hr total) by mouth daily. capsule documented as of this encounter Miscellaneous Notes Result Encounter Note - Sofia Conroy M.D. - 11/20/2018 2:00 PM CDT Please call the patient that her vitamin-D is very low at 10. [place] [address] units of vitamin-D to take 2 doses 1 dose today 1 dose tomorrow and then start on [address] Shah will have to follow calcium closely after surgery.Thanks, Sofia Conroy documented in this encounter Plan of Treatment Not on filedocumented as of this encounter Procedures Procedure Name Priority Date/Time Associated Diagnosis Comme nts 25-HYDROXYVITAMIN Routine 11/20/2018 2:04 PM Hyperthyroidism R esults for this D2 AND D3, S CDT procedure are i n the results section. T3 Routine 11/20/2018 2:04 PM Hyperthyroidism Result s for this (TRIIODOTHYRONINE), CDT procedur e are in FREE, S the results section. THYROID-STIMULATING Routine 11/20/2018 2:04 PM Hyperthyroidism Results for this HORMONE-SENSITIVE CDT procedure are in (S-TSH) the results section. T4 (THYROXINE), Routine 11/20/2018 2:04 PM Hyperthyroidism Res ults for this FREE, S CDT procedure are i n the results section. CALCIUM, TOT, S/P Routine 11/20/2018 2:04 PM Hyperthyroidism R esults for this CDT procedure are i n the results section. documented in this encounter Results (ABNORMAL) 25-Hydroxyvitamin D2 and D3 (11/20/2018 2:04 PM CDT) P athologist Signature 25-Hydroxy D2 <4.0 ng/mL 11/24/2018 [facility] 11:59 AM CDT 25-Hydroxy D3 10 ng/mL 11/24/2018 [facility] 11:59 AM CDT 25-Hydroxy D 10 (L) ng/mL 11/24/2018 [facility] Total 11:59 AM CDT Comment: Interpretation: 10-19 ng/mL (mild to mod erate deficiency) ----REFERENCE VALUE---- 25-HYDROXY D TOTAL (D2+D3) Optimum level s in the healthy population are 20-50, patients with bone disease may benefit from higher levels within this r emerita. ----ADDITIONAL INFORMATION---- This test was developed and its performa nce characteristics determined by [facility] in a manner consistent with CLIA requirements. This test has not been cleared or approved by the U.S. Sonal d and Drug Administration. Specimen Anatomical Collection Method Collection Time Receive d Time (Source) Location / / Volume Laterality Blood (Blood, 11/20/2018 2:04 PM 11/24/19 19 9:24 Venous) CDT AM CDT Sofia Conroy M.D. LAB BLOOD ADD-ON Performing Organization Address City/State/ZIP Code Phon e Number [facility] [address] [place], [place] [address] [place] [address] [place] [address] Laboratory Medicine and Pathology [address] [place] Calcium (11/20/2018 2:04 PM CDT) P athologist Signature Calcium, Total, 9.6 8.6 - 10.0 11/21/2018 [place] S mg/dL 9:50 AM CDT Specimen Anatomical Collection Method Collection Time Receive d Time (Source) Location / / Volume Laterality Blood (Blood, 11/20/2018 2:04 PM 11/21/19 19 5:54 Venous) CDT PM CDT Sofia Conroy M.D. LAB BLOOD ADD-ON Performing Organization Address City/State/ZIP Code Phon e Number [facility] [address] [place] [address] [place] [address] System in [place] [address] (ABNORMAL) S-TSH (Thyroid-Stimulating Hormone - Sensitive) (11/20/2018 2:04 PM CDT) Analysis Performed At Patho logist Time Signature TSH, Sensitive <0.01 (L) 0.3 - 4.2 11/21/2018 [place] mIU/L 9:41 AM CDT Comment: Biotin has been identified by the lazarus singh as a potential interfering substance. ??Higher concentr ations of biotin may be found in multivitamins, hair/nail supple ments, and workout supplements. ??If the result does not [facility] clinical observations, repeat testing after patient refrains fr om the use of supplements for at least 12 hours. Specimen Anatomical Collection Method Collection Time Receive d Time (Source) Location / / Volume Laterality Blood (Blood, 11/20/2018 2:04 PM 11/21/19 19 5:54 Venous) CDT PM CDT Sofia Conroy M.D. LAB BLOOD ADD-ON Performing Organization Address City/State/ZIP Code Phon e Number [facility] [address] [place] [address] [place] [address] System in [place] [address] (ABNORMAL) T3 (Triiodothyronine), Free (11/20/2018 2:04 PM CDT) P athologist Signature T3 6.6 (H) 2.8 - 4.4 11/21/2018 [facility] (Triiodothyron pg/mL 10:27 AM CDT ine), Free, S Specimen Anatomical Collection Method Collection Time Receive d Time (Source) Location / / Volume Laterality Blood (Blood, 11/20/2018 2:04 PM 11/22/19 19 9:06 Venous) CDT AM CDT Sofia Conroy M.D. LAB BLOOD ADD-ON Performing Organization Address City/State/ZIP Code Phon e Number [facility] [address] [place], [place] [address] [place], [place] [address]. [place] [address] Laboratory Medicine and Pathology [address] [place] (ABNORMAL) T4 (Thyroxine), Free (11/20/2018 2:04 PM CDT) P athologist Signature T4 3.1 (H) 0.9 - 1.7 11/20/2018 [facility] (Thyroxine), ng/dL 6:18 PM CDT Free, S Comment: Biotin has been identified by the lazarus singh as a potential interfering substance. ??Higher concentr ations of biotin may be found in multivitamins, hair/nail supple ments, and workout supplements. ??If the result does not [facility] clinical observations, repeat testing after patient refrains fr om the use of supplements for at least 12 hours. Specimen Anatomical Collection Method Collection Time Receive d Time (Source) Location / / Volume Laterality Blood (Blood, 11/20/2018 2:04 PM 11/21/19 19 5:54 Venous) CDT PM CDT Sofia Conroy M.D. LAB BLOOD ADD-ON Performing Organization Address City/State/ZIP Code Phon e Number [facility]- [address] [place] [address] [place] [address] System in [place] [address] documented in this encounter Visit Diagnoses Diagnosis Hyperthyroidism documented in this encounter Additional Health Concerns Assessment Noted Time PHQ-9 Depression Total Score: 11 10/28/2018 2:28 PM CD T documented as of this encounter Care Teams Stockroom Worker Relationship Specialty Start Date End Date Fausto Good P.A.-C. PCP - General 07/25/16 [address] [place] [address] documented as of this encounter
--- OUTSIDE RECORDS SUMMARY | 2022-01-23 07:18 | XMS_ITS | Encounter Summary ---
:1965 Author Organization [facility] Address [address] [place] [address] Care Team Providers Name Role Phone Fausto Good P.A.-C. Primary Care Provider [phone] Encounter Details Date Type Department Care Team Description 09/28/2018 Orders Only [facility] PCP TH MNT Fausto Good, Screening Mammogram P.A.-C. Breast Cancer [address] [place] [phone] Social History Tobacco Use Types Packs/Day Years [...] do you attend restoration or Never 2021 faith services? Do you belong to any clubs [...] on filedocumented as of this encounter Results BI Breast Screening Bilateral with Tomosynthesis (10/26/2018 11:19 AM CDT) Anatomical Region Laterality Modality Breast, Breast Imaging [facility] LOS, Breast Imaging ARZ LOS, [place] [address] Bilateral Mammography Imaging [facility] Specimen (Source) Anatomical Collection Method Collection Time Re ceived Time Location / / Volume Laterality 10/26/2018 11:40 AM CDT Impressions 10/26/2018 11:40 AM CDT Negative. RECOMMENDATION: ??Annual Screening Mammo gram ASSESSMENT: ??BI-RADS: 1: Negative. Narrative 10/26/2018 11:40 AM CDT EXAM: ??BI BREAST SCREENING BILATERAL WITH TOMOSYNTHESIS Current study was evaluated with a Compu ter Aided Detection (CAD) system. INDICATION: ??Screening mammogram. COMPARISON: ??Prior exam(s) were availab le and reviewed for comparison. DENSITY: ??c. The breast(s) are heteroge neously dense, which may obscure small masses. FINDINGS: ??No mammographic findings of malignancy. Procedure Note Romario Snell M.D. - 10/26/2018Forma tting of this note might be different from the original. EXAM: BI BREAST SCREENING BILATERAL WITH TOMOSYNTHESIS Current study was evaluated with a Compu ter Aided Detection (CAD) system. INDICATION: Screening mammogram. COMPARISON: Prior exam(s) were available and reviewed for comparison. DENSITY: c. The breast(s) are heterogene ously dense, which may obscure small masses. FINDINGS: No mammographic findings of ma lignancy. IMPRESSION: Negative. RECOMMENDATION: Annual Screening Mammogr am ASSESSMENT: BI-RADS: 1: Negative. Fausto Good P.A.-C. IMG BI PROCEDURES documented in this encounter Visit Diagnoses Diagnosis Screening Mammogram Breast Cancer Screening Mammogram Breast Cancer documented in this encounter Additional Health Concerns Assessment Noted Time PHQ-9 Depression Total Score: 7 09/12/2014 2:25 PM CDT documented as of this encounter Care Teams Legal Aide Relationship Specialty Start Date End Date Fausto Good P.A.-C. PCP - General 07/25/[address] [place] [phone] documented as of this encounter
--- OUTSIDE RECORDS SUMMARY | 2022-01-23 07:18 | XMS_ITS | Encounter Summary ---
:1965 Author Organization [facility] Address [address] [place] [address] Care Team Providers Name Role Phone Fausto Good P.A.-C. Primary Care Provider [phone] Encounter Details Date Type Department Care Team Description 09/30/2018 Hospital Encounter Department of Sofia Conroy, Jd thyroidism Laboratory Medicine and [facility], [address] [address] [place] [address] [place], [place] (Work) [address] [phone] Social History Tobacco Use Types Packs/Day Years [...] do you attend adventism or Never 2021 anabaptism services? Do you [...] place to sleep or slept in a prison (including now)? Education Answer Date Recorded What [...] Take 1 capsule (120 mg 30 capsule 11/30/2018 [place]) 120 mg 24 hr total) by mouth daily. capsule documented as of this encounter Miscellaneous Notes Result Encounter Note - Sofia Conroy M.D. - 09/30/2018 11:59 PM CDT Patient's thyrotropin receptor antibodies are 2.95 still elevated although not as high as last year. documented in this encounter Plan of Treatment Not on filedocumented as of this encounter Procedures Procedure Name Priority Date/Time Associated Diagnosis Comme nts THYROTROPIN RECEPTOR Routine 09/30/2018 10:47 Hyperthyroidism Results for this AB, S AM CDT procedure are i n the results section. T3 Routine 09/30/2018 10:47 Hyperthyroidism Results for this (TRIIODOTHYRONINE), AM CDT procedur e are in TOT, S the results section. documented in this encounter Results (ABNORMAL) Thyrotropin Receptor Antibody (09/30/2018 10:47 AM CDT) [facility] gist Method Time Signature Thyrotropin 2.95 (H) 0.00 - 09/30/2018 Receptor Ab, S 1.75 IU/L 5:01 PM CDT Comment: ----ADDITIONAL INFORMATION---- At a decision limit of 1.75 IU/L, this a ssay has 97% sensitivity and 99% specificity for detection of Graves' disease. In healthy individuals and in patients with thyroid disease without diagnosis of Graves' disease, th e upper limit of anti-TSHR values are 1.22 IU/L and 1.58 IU/L, respectively (97.5th percenti les). Specimen Anatomical Collection Method Collection Time Receive d Time (Source) Location / / Volume Laterality Blood (Blood, 09/30/2018 10:47 09/30/2018 3:16 Venous) AM CDT PM CDT Sofia Conroy M.D. LAB BLOOD ADD-ON Performing Organization Address City/State/ZIP Code Phon e Number [facility] [address] [place], [place] [address] [facility] T3 (Triiodothyronine), Total (09/30/2018 10:47 AM CDT) athologist Signature T3 140 80 - 200 09/30/2018 (Triiodothyroni ng/dL 12:02 PM CDT ne), Total, S Specimen Anatomical Collection Method Collection Time Receive d Time (Source) Location / / Volume Laterality Blood (Blood, 09/30/2018 10:47 09/30/2018 Venous) AM CDT 11:05 AM CDT Sofia Conroy M.D. LAB BLOOD ADD-ON Performing Organization Address City/State/ZIP Code Phon e Number [facility] [address] [place], [place] [address] [employer] [facility] [employer] [facility] documented in this encounter Visit Diagnoses Diagnosis Hyperthyroidism documented in this encounter Additional Health Concerns Assessment Noted Time PHQ-9 Depression Total Score: 7 09/12/2014 2:25 PM CDT documented as of this encounter Care Teams Aboriginal Community Council Member Relationship Specialty Start Date End Date Fausto Good P.A.-C. PCP - General 07/25/16 [address] [place] [address] documented as of this encounter
--- OUTSIDE RECORDS SUMMARY | 2022-01-23 07:18 | XMS_ITS | Encounter Summary ---
:1965 Author Organization [facility] Address [address] [place] [address] Care Team Providers Name Role Phone Fausto Good P.A.-C. Primary Care Provider [phone] Reason for Visit Reason Comments Annual Exam weight gain from med Outpatient (Routine) - Closed Specialty Diagnoses / Procedures Referred By Contact Refer red To Contact Family Medicine Fausto Good P. A.-C. [address] [phone] Referral ID Status Reason Start Date Expiration Date Visits Requ ested Visits Authorized [id number] Closed 09/26/2017 09/26/2018 1 1 Encounter Details Date Type Department Care Team Description 10/28/2018 Comprehensive Visit Department of Danny Good (Primary Dx); Family MedicineFausto Hypertensio n Essential [facility] Acquired Personal History; in [address] Screening Cancer Colon; [place], [place] General Medical Examination Adult; [address] [address] Pap Smear Examination; [place], [place] [phone] Pain Low Back [address] (Work) [phone] Social History Tobacco Use Types Packs/Day Years [...] do you attend temple or Never 2021 buddhism services? Do you belong to any clubs or No 02/16/2021 organizations such as temple groups, unions, fraFashionStake or athletic groups, or school groups? How [...] Sign Reading Time Taken Comments Blood Pressure 138/80 10/28/2018 2:23 PM CDT Pulse 68 10/28/2018 2:23 PM CDT Temperature 36.5 ??C (97.7 ??F) 10/28/2018 2:23 PM CDT Respiratory Rate - - Oxygen Saturation - - Inhaled Oxygen Concentration - - Weight 79 kg (174 lb 2.6 oz) 10/28/2018 2:23 PM CDT Height - - Body Mass Index 31.49 09/30/2018 9:17 AM CDT documented in this encounter H&P Notes Fausto Good P.A.-C. - 10/28/2018 2:30 PM CDT CHIEF COMPLAINT / REASON FOR VISIT Hannah Kahn is a 53 y.o. female who presents for evaluation of Annual Exam (weight gain from [facility]). HISTORY OF PRESENT ILLNESS Hannah presents today for her yearly medication review. She has a longstanding history of hyperthyroidism she has been treating this with methimazole through her public address announcer in [place]. She has recently increase the dose and now is hypothyroid she has been gaining weight she feels poorly she would like to proceed with further definitive treatment either iodine treatment verses surgery. She does realize this is a little higher risk but I do think this is probably her best moved given the complications that she has had. She has a history of other severe allergies and has an EpiPen she has migraines that flare up about once a month. She has hypertension that is been pretty well controlled she recently was started on amlodipine at 2.5 mg she is marginally controlled today so we will increase that dose a bit. PAST MEDICAL HISTORY: Patient Active Problem List Diagnosis ??? Migraine Headache ??? Hyperthyroidism ??? Urticaria Acute ??? Angioedema Acquired Personal History ??? Hypertension Essential Primary PAST SURGICAL HISTORY: Past Surgical History: Procedure Laterality Date ??? CHOLECYSTECTOMY N/A Cholecystectomy ??? DILATATION AND CURETTAGE ??? ENDOMETRIAL THERMAL ABLATION N/A 05/20/2003 Endometrial ablation, thermal, without hysteroscopic guidance.. ??? GALLBLADDER SURGERY ??? HERNIA REPAIR ??? OTHER SURGICAL HISTORY ??? TONSILLECTOMY ??? TONSILLECTOMY AND ADENOIDECTOMY N/A Tonsillectomy and adenoidectomy ??? TUBAL LIGATION SOCIAL HISTORY: Social History Tobacco Use ??? Smoking status: Current Every Day Smoker Packs/day: 0.50 Years: 35.00 Pack years: 17.50 Types: Cigarettes, E-cigarettes Start date: 02/10/1982 ??? Smokeless tobacco: Never Used Substance Use Topics ??? Alcohol use: Yes Types: 6 Cans of beer per week Frequency: 2-3 times a week Drinks per session: 1 or 2 Binge frequency: Never ??? Drug use: No FAMILY HISTORY: Family [...] Outpatient Medications Medication Sig Dispense Refill ??? EPINEPHrine (EPIPEN) 0.3 mg/0.3 mL injection syringe Inject 0.3 mL (0.3 mg total) intramuscularly as needed for anaphylaxis. Inject into the thigh. 1 each 1 ??? propranolol (INDERAL [place]) 120 mg 24 hr capsule Take 1 capsule (120 mg total) by mouth daily. 30 capsule 11 ??? amLODIPine (NORVASC) 5 mg tablet Take [...] into the thigh. 1 each 11 ??? methIMAzole (TAPAZOLE) 10 mg tablet Take 3 tablets (30 mg total) by mouth daily. (Patient not taking: Reported on 10/28/2018 ) 90 tablet 11 Current Facility-Administered Medications Medication Dose Route Frequency Provider Last Rate Last Dose ??? EPINEPHrine 0.3 mg/0.3 mL injection 0.3 mg (EPIPEN) 0.3 mg intramuscular Once Sofia Conroy M.D. ALLERGIES: Allergies Allergen Reactions ??? Amoxicillin Hives [...] (see comments) Other reaction(s): Throat Swelling/Closing ??? Tribe Hives and Other (see comments) Other reaction(s): Throat Swelling/Closing ??? Penicillins Other (see comments) and Hives Other reaction(s): Throat Swelling/Closing ??? Shellfish Containing Products Anaphylaxis ??? Tree Nut Shortness of breath and Hives Other reaction(s): Throat Swelling/Closing Llano nuts- Use these nuts to make nutmeg Patient carries Epinephrine pen. OBJECTIVE Vitals: 10/28/18 1423 BP: 138/80 BP Location: Right arm Patient Position: Sitting Cuff Size: Large Pulse: 68 Temp: 36.5 ??C Weight: 79 kg Body mass index is 31.49 kg/m??. PHYSICAL EXAMINATION General: Patient appears in no acute distress. ENT: TMs no erythema. Throat no erythema. Neck: No lymphadenopathy. No thyroid masses. Heart: Regular rate and rhythm. No murmurs. Lungs: Clear to auscultation. Breasts: Symmetrical. No lumps appreciated. No axillary lymph nodes palpable. Abdomen: Soft and nontender to palpation. Genitalia: Normal external female genitalia. Pap smear was obtained. Bimanual exam showed no cervical motion tenderness. IMPRESSION / REPORT / PLAN #1 Hyperthyroidism She is going to follow up with her public address announcer she is thinking that she wants to go ahead and have surgery she is going to continue on the methimazole for now her but she has had a pretty significant weight gain and her TSH has climbed up quite a bit over the last month. She will discuss this further with her public address announcer #2 Hypertension Essential Primary Blood pressure is marginally controlled I will increase her amlodipine to 5 mg daily. #3 Angioedema Acquired Personal History I renewed her EpiPen #4 Screening Cancer Colon I called in colo guard for her today #5 General Medical Examination Adult She does not get much exercise she does not eat many vegetables. She has room for improvement in these areas. For now her biggest concern is of her thyroid and hopefully we can get this taken care of. I said I would be happy to manage her Synthroid following her definitive treatment #6 Pap Smear Examination I will notify when I get the results of her Pap smear #7 Pain Low Back She has chronic back pain that flares up occasionally she has found benefit from Flexeril I renewed this for her today Fausto Good P.A.-C. documented in this encounter Plan of Treatment Not on filedocumented as of this encounter Procedures Procedure Name Priority Date/Time Associated Diagnosis Comme nts THINPREP W/HPV Routine 10/28/2018 3:19 PM Pap Smear Results for this CO-TEST SCREEN CDT Examination procedure are in the results section. HPV WITH Routine 10/28/2018 3:19 PM Results f or this GENOTYPING, PCR, CDT procedure a re in THINPREP the results section. documented in this encounter Results HPV with Genotyping, PCR, ThinPrep (10/28/2018 3:19 PM CDT) athologist Signature HPV with Negative Negative 10/29/2018 Genotyping, 1:47 PM CDT ThinPrep, PCR Comment: Negative for high risk HPV by nucleic ac id amplification. ??The following high risk HPV types were not detected: 16, 18, 31, 33, 35, 39, 45, 51, 52, 56, 58, 59, 66, and 68 Specimen Anatomical Collection Method Collection Time Receive d Time (Source) Location / / Volume Laterality Varies 10/28/2018 3:19 PM 9 8:43 CDT AM CDT Fausto Good P.A.-C. LAB MICROBIOLOGY - GENERAL O RDERABLES Performing Organization Address City/State/ZIP Code Phon e Number [facility] [address] [place] [address] LAB ThinPrep w/HPV Co-Test Screen (10/28/2018 3:19 PM CDT) Component Value Ref Test Analysis Performed Pathologis t Range Method Time At Signature 11/02/2018 2:57 PM CDT Report EMILY Levine(ASCP) 11/02/2018 electronically I verify that I have examined all relevant slides/ma terials 2:57 PM signed by for the specimen(s) and rendered or confirmed the diagnosis. CDT Gross Description Received specimen 11/02/2018 in a ThinPrep 2:57 PM vial. CDT Pap Test Source Cervical/Endocervi 11/02/2018 neto 2:57 PM CDT Clinical History Pap 10/02/2015 11/02/2018 2:57 PM CDT Menstrual amenorrhea 11/02/2018 Status(LMP, PM, 2:57 PM ) CDT Hormone None/Not known 11/02/2018 Therapy/Contracep 2:57 PM tives CDT Interpretation Cervical/Endocervical ??(ThinPrep): 11/02/2018 Satisfactory for Evaluation 2:57 PM Negative for Intraepithelial Lesion or Malignancy CDT High Risk HPV: ??Negative Negative for High Risk HPV by nucleic acid amplification. The following High Risk HPV types were not detected: 16, 18, 31, 33, 35, 39, 45, 51, 52, 56, 58, 59, 66, and 68. Specimen Anatomical Collection Method Collection Time Receive d Time (Source) Location / / Volume Laterality Varies 10/28/2018 3:19 PM 9 8:43 (Cervix/Endocerv CDT AM CDT ix) Narrative This result has an attachment that is no t available. Fausto Good P.A.-C. LAB PAP PATHDX ORDERABLES Performing Organization Address City/State/[facility] Phon e Number [place] [id number] [place] [address] CYTOLOGY documented in this encounter Visit Diagnoses Diagnosis Hyperthyroidism - Primary Hypertension Essential Primary Angioedema Acquired Personal History Screening Cancer Colon General Medical Examination Adult Pap Smear Examination Pain Low Back Unspecified documented in this encounter Additional Health Concerns Assessment Noted Time PHQ-9 Depression Total Score: 11 10/28/2018 2:28 PM CD T documented as of this encounter Care Teams Clerk Specialist Relationship Specialty Start Date End Date Fausto Good P.A.-C. PCP - General 07/25/16 [address] [place] [phone] documented as of this encounter
--- OUTSIDE RECORDS SUMMARY | 2022-01-23 07:18 | XMS_ITS | Encounter Summary ---
:1965 Author Organization [facility] Address [address] [place] [address] Care Team Providers Name Role Phone Fausto Good P.A.-C. Primary Care Provider [phone] Reason for Visit Appointment Request (Routine) - Closed Specialty Diagnoses / Procedures Referred By Contact Refer red To Contact Family Medicine Referral ID Status Reason Start Date Expiration Date Visits Requ ested Visits Authorized [id number] Closed 07/15/2018 07/15/2019 1 Encounter Details Date Type Department Care Team Description 07/16/2018 Hospital Encounter Department of Laboratory Sofia Conroy, Medicine in [place] [address] [phone] Social History Tobacco Use Types Packs/Day Years [...] do you attend pentecostal or Never 2021 church services? Do you belong to any clubs [...] or slept in a retirement (including now)? Sex Assigned at Date Recorded [...] Inject 0.3 mL (0.3 mg 1 each 11 12/1111/30/2018 0.3 mg/0.3 mL total) intramuscularly injection [...] documented as of this encounter Care Teams Senior Java Ui Developer Relationship Specialty Start Date End Date Fausto Good P.A.-C. PCP - General 07/25/[address] [place] [phone] documented as of this encounter
--- OUTSIDE RECORDS SUMMARY | 2022-01-23 07:18 | XMS_ITS | Encounter Summary ---
:1965 Author Organization [facility] Address [address] [place] [address] Care Team Providers Name Role Phone Fausto Good P.A.-C. Primary Care Provider [phone] Encounter Details Date Type Department Care Team Description 10/26/2018 Hospital Encounter Department of Milli Good Mammogram Radiology in [place] [facility] [place], [place] 225 [facility] [address] [place] [phone] Social History Tobacco Use Types Packs/Day Years [...] or relatives? How often do you attend uatsdin or Never 2021 taoism services? Do you belong to any clubs or No 02/16/2021 organizations such as uatsdin groups, unions, fraternal or athletic groups, or [...] to pay for the very basics like [employer] hat hard 02/16/2021 food, housing, medical care, [...] Diagnosis BI BREAST SCREENING RAD - Routine 10/26/2018 11:19 Screening Res ults for BILATERAL WITH (most inpatients AM CDT Mammogram Breast this procedure TOMOSYNTHESIS and all Cancer are in the outpatients) results section. documented in this encounter Results BI Breast Screening Bilateral with Tomosynthesis (10/26/2018 11:19 AM CDT) Anatomical Region Laterality Modality Breast, Breast Imaging RST LOS, Breast Imaging ARZ LOS, [address] Bilateral Mammography Imaging FLA LOS Specimen (Source) Anatomical Collection Method Collection Time Re ceived Time Location / / Volume Laterality 10/26/2018 11:40 AM CDT Impressions 10/26/2018 11:40 AM CDT Negative. RECOMMENDATION: ??Annual Screening Mammo gram ASSESSMENT: ??BI-RADS: 1: Negative. Narrative 10/26/2018 11:40 AM CDT EXAM: ??BI BREAST SCREENING BILATERAL WITH TOMOSYNTHESIS Current study was evaluated with a [employer] English Aided Detection (CAD) system. INDICATION: ??Screening mammogram. [...] TOMOSYNTHESIS Current study was evaluated with a [employer] English Aided Detection (CAD) system. INDICATION: Screening mammogram. [...] documented as of this encounter Care Teams Moss Gatherer Relationship Specialty Start Date End Date Fausto Good P.A.-C. PCP - General 07/25/[address] [place] [phone] documented as of this encounter
--- OUTSIDE RECORDS SUMMARY | 2022-01-23 07:18 | XMS_ITS | Encounter Summary ---
:1965 Author Organization [facility] Address [address] [place] [address] Care Team Providers Name Role Phone Fausto Good P.A.-C. Primary Care Provider [phone] Reason for Visit Outpatient (Routine) - Closed Specialty Diagnoses / Procedures Referred By Contact Refer red To Contact Endocrinology Sofia Conroy M.D. [facility] [address] [place] [address] Referral ID Status Reason Start Date Expiration Date Visits Requ ested Visits Authorized [id number] Closed 07/27/2018 07/27/2019 1 1 Encounter Details Date Type Department Care Team Description 09/30/2018 Office Visit Division of Rocco Conroy (Primary Endocrinology in [place]) [place], [place] [address] [facility] [address] [place] [address] [phone] Social History Tobacco Use Types Packs/Day Years [...] or relatives? How often do you attend mormon or Never 2021 yazidi services? Do you belong to any clubs or No 02/16/2021 organizations such as mormon groups, unions, [employer] or athletic groups, or school groups? How [...] Sign Reading Time Taken Comments Blood Pressure 163/90 09/30/2018 9:17 AM CDT Pulse 72 09/30/2018 9:17 AM CDT Temperature - - Respiratory Rate - - Oxygen Saturation - - Inhaled Oxygen Concentration - - Weight 77 kg (169 lb 12.1 oz) 09/30/2018 9:17 AM CDT Height 158.4 cm (5' 2.36) 09/30/2018 9:17 AM CDT Body Mass Index 30.69 09/30/2018 9:17 AM CDT documented in this encounter Progress Notes Sofia Conroy M.D. - 09/30/2018 10:45 AM CDT SUBJECTIVE CHIEF COMPLAINT/REASON FOR VISIT Graves' disease. HISTORY OF PRESENT ILLNESS Mrs. Kahn comes back for followup. She had significant hyperthyroidism diagnosed last summer 2017. No Graves' ophthalmopathy. Her free thyroxine was 3.1, suppressed TSH, and TRAb antibodies were 5.8. She had symptoms of tremor, palpitations, sweating, insomnia, weight loss. She chose to be treatedwith antithyroid medications, although she had a rash while on methimazole which had resolved, and she wanted to continue this. Her initial dosages of methimazole were between 30 to 40 mg; now she is on 25 mg, quite a high dose. Despite this we had never basically had a normal TSH, but a completely normal free T4 was seen. Her symptoms have improved, but she gained about 30 pounds. She has no signs of eye tearing, double vision, or pain in her eyes or photophobia. She has no more tremor but still has intermittent problems with insomnia. Her blood pressure is much higher than it used to be, and on multiple occasions is over 160/90. She is on propranolol 20 mg 3 times a day. Today's blood tests showed TSH less than 0.01 with a free T4 of 1.5 which is higher than on the previously same dose of methimazole 25 mg when free T4 was at 1.0. OBJECTIVE PHYSICAL EXAMINATION General: Patient in no apparent distress. Alert, oriented x3. Vitals: Height 158.4. Weight 77 kg. Pulse 72. Blood pressure 163/90. Thyroid : About 25-30 g. Eyes : Extraocular muscles intact. No proptosis, chemosis, lid lag, or conjunctival injection. Neuro: No evidence of fine tremor. No evidence of hyperreflexia. Heart : Regular rate and rhythm. Palms: No evidence of hyperperspiration. ASSESSMENT / PLAN #1 Persistent Graves' disease We have difficulties to control the patient's hyperthyroidism. It is better than it was before, but her thyroid tests have not normalized despite a rather high dose of methimazole of 25 mg for almost ayear. I discussed with her that I can increase her dose of methimazole currently to 30 mg, but I would be very concerned to use such a high dose for long-term treatment. Therefore I discussed her otheroptions including I-131 therapy or surgical options. I discussed the pros and contras of both of these therapies, and she wants to think about it for a month. I will check her T3 levels and TRAb antibodies. I discussed that iodine therapy works in about 85% of patients but it can be associated with exa cerbation of eye disease, especially when the patient smokes, which she smokes about 3 cigarettes a week, and if the T3 levels are high. We would need to give probably this patient prophylactically some glucocorticoids after iodine therapy. It would make her hypothyroid eventually; that would be a goal. Surgical therapy would not be associated with increased risk of Graves' eye disease, but surgery is related with side effects of anesthesia, postsurgical hypoparathyroidism, and laryngeal nerve injury and also requires lifelong therapy with thyroid hormone. The patient will think about her options and let me know. #2 Hypertension The patient is not as hyperthyroid to explain her hypertension worsening. Therefore, I will increaseher Inderal to Inderal XL 120 mg once a day, and I am adding Norvasc 2.5 mg a day. I encouraged her to follow up with her primary physician to adjust the dose so we have normalization of blood pressures. Questions answered. CT CT Job ID: [id number] documented in this encounter Plan of Treatment Not on filedocumented as of this encounter Results (ABNORMAL) Thyrotropin Receptor Antibody (09/30/2018 10:47 AM CDT) [facility] Method Time Signature Thyrotropin 2.95 (H) 0.00 [...] Address City/State/ZIP Code Phon e Number [facility] [address] [place], [place] [address] [address] [facility] T3 (Triiodothyronine), Total (09/30/2018 10:47 AM CDT) P athologist Signature T3 140 80 - 200 09/30/2018 (Triiodothyroni ng/dL 12:02 PM CDT ne), Total, S Specimen Anatomical Collection Method Collection Time Receive d Time (Source) Location / / Volume Laterality Blood (Blood, 09/30/2018 10:47 09/30/2018 Venous) AM CDT 11:05 AM CDT Sofia Conroy M.D. LAB BLOOD ADD-ON Performing Organization Address City/State/ZIP Code Phon e Number [facility] - [address] [place] [address] 05 [facility] documented in this encounter Visit Diagnoses Diagnosis Hyperthyroidism - Primary documented in this encounter Additional Health Concerns Assessment Noted Time PHQ-9 Depression Total Score: 7 09/12/2014 2:25 PM CDT documented as of this encounter Care Teams Purchase Price Analyst Relationship Specialty Start Date End Date Fausto Good P.A.-C. PCP - General 07/25/16 [address] [place] [phone] documented as of this encounter
--- OUTSIDE RECORDS SUMMARY | 2022-01-23 07:18 | XMS_ITS | Encounter Summary ---
:1965 Author Organization [facility] Address [address] [place] [address] Care Team Providers Name Role Phone Fausto Good P.A.-C. Primary Care Provider Encounter Details Date Type Department Care Team Description 06/21/2018 Hospital Encounter Department of Sofia Conroy, Jd thyroidism Laboratory Medicine and [facility], [address] [phone] [place] [address] [place], [place] (Work) [phone] Social History Tobacco Use Types Packs/Day Years [...] do you attend buddhism or Never 2021 oriental orthodox services? Do [...] or slept in a prison (including now)? Sex Assigned at Date Recorded [...] (eight) hours. documented as of this encounter Miscellaneous Notes Result Encounter Note - Sofia Conroy M.D. - 06/21/2018 11:59 PM CDT Please inform the patient that free T4 is 1.0 but TSH is again down to 0.04 how much methimazole issue on now. How much was she a month ago? Th DE documented in this encounter Plan of Treatment Not on filedocumented as of this encounter Procedures Procedure Name Priority Date/Time Associated Diagnosis Comme nts THYROID-STIMULATING Routine 07/16/2018 1:15 PM Hyperthyroidism Results for this HORMONE-SENSITIVE CDT procedure are in (S-TSH) the results section. T4 (THYROXINE), Routine 07/16/2018 1:15 PM Hyperthyroidism Res ults for this FREE, S CDT procedure are i n the results section. documented in this encounter Results (ABNORMAL) S-TSH (Thyroid-Stimulating Hormone - Sensitive) (07/16/2018 1:15 PM CDT) athologist Signature TSH, Sensitive 0.04 (L) 0.3 - 4.2 07/18/2018 mIU/L 2:27 PM CDT Specimen Anatomical Collection Method Collection Time Receive d Time (Source) Location / / Volume Laterality Blood (Blood, 07/16/2018 1:15 PM 07/19/19 Venous) CDT 12:01 PM CDT Resulting Agency Comment Mailed In Specimen Sofia Conroy M.D. LAB BLOOD ADD-ON Performing Organization Address City/[facility]/ZIP Code Phon e Number [facility] - [address] T4 (Thyroxine), Free (07/16/2018 1:15 PM CDT) athologist Signature T4 (Thyroxine), 1.0 0.9 - 1.7 07/18/2018 Free, S ng/dL 2:27 PM CDT Specimen Anatomical Collection Method Collection Time Receive d Time (Source) Location / / Volume Laterality Blood (Blood, 07/16/2018 1:15 PM 07/19/19 Venous) CDT 12:01 PM CDT Resulting Agency Comment Mailed In Specimen Sofia Conroy M.D. LAB BLOOD ADD-ON Performing Organization Address City/[facility] Phon e Number [facility] - [address] documented in this encounter Visit Diagnoses Diagnosis Hyperthyroidism documented in this encounter Additional Health Concerns Assessment Noted Time PHQ-9 Depression Total Score: 7 09/12/2014 2:25 PM CDT documented as of this encounter Care Teams Software Integrator Relationship Specialty Start Date End Date Fausto Good P.A.-C. PCP - General 07/25/[address] [place] [phone] documented as of this encounter
--- OUTSIDE RECORDS SUMMARY | 2022-01-23 07:18 | XMS_ITS | Encounter Summary ---
:1965 Author Organization [facility] Address [address] [place] [address] Care Team Providers Name Role Phone Fausto Good P.A.-C. Primary Care Provider [phone] Reason for Visit Outpatient (Routine) - Closed Specialty Diagnoses / Procedures Referred By Contact Refer red To Contact General Surgery Diagnoses Hyperthyroidism Sofia Conroy M.D. [facility] [address] [place] [phone] Referral ID Status Reason Start Date Expiration Date Visits Requ ested Visits Authorized [id number] Closed 11/03/2018 11/03/2019 1 1 Encounter Details Date Type Department Care Team Description 11/23/2018 Comprehensive Visit Division of Breast, Dy, Ean Peña M.D. [address] [place] [phone] Hyperthyroidism Endocrine, Metabolic, Sofia Conroy M.D. [address] [place] [phone] and Gastrointestinal Surgery in [place], [place] [address] [place] [phone] Social History Tobacco Use Types Packs/Day [...] do you attend temple or Never 2021 taoism services? Do you [...] documented as of this encounter Progress Notes Sofia Conroy M.D. - 11/23/2018 3:00 PM CDT SUBJECTIVE Followup visit, CHIEF COMPLAINT/REASON FOR VISIT Graves' disease resistant to treatment. ASSESSMENT / PLAN I saw the patient about a month ago and talked about the pluses and minuses of continuation medications, antithyroid, versus proceeding with I-131 ablation or surgery. After thinking through it, patient chose to have a surgical option. When I saw her in September, she had a free thyroxine within normal levels, slightly low TSH. When she was seen by her primary physician about 2 weeks ago, her TSH was 5.8, so he advised her to discontinue the 25 mg of Tapazole. She has been off it for about 2 weeks per her report, and her levels of thyroid showed thyrotoxicosis again. TSH is less than 0.01, free T4 3.1, T3 of 6.6. She feels anxious and has had some palpitations. Calcium is 9.6. Patient met with Dr. Shah who discussed with her the risk and benefits of thyroidectomy, the risk of hypoparathyroidism, and lifelong replacement with thyroid hormone. She also has mild Graves' ophthalmopathy. At this point, I need her to restart methimazole at 30 mg a day, continue propranolol at 120 mg a day. She is allergicto iodine so she will not use Lugol solution. I would prefer that the surgery is scheduled in a few weeks if before surgery she has still palpitation, does not feel well, then the surgery will need to be postponed further. I discussed the issue with the patient and also with Dr. Shah. I will plan to check vitamin D levels, In the meantime, patient was advised to take 1000 mg of calcium extra and 1000 in ternational units of vitamin D. Blood pressure today was 138/80, pulse 60 as of 10/28. Cardiovascular examination normal in September 2018. Patient should also continue Norvasc, and this was increased to 5 mg a day per her physician. CT CT Job ID: [id number] documented in this encounter Consult Notes Elicia Shah M.D. - 11/23/2018 3:00 PM CDT SUBJECTIVE REASON FOR CONSULT Hannah Kahn is a 53 y.o. female who presents for evaluation of No chief complaint on file. She was referred by Sofia Conroy M.D.. HISTORY OF PRESENT ILLNESS Ms. Jovany Kahn was referred for surgical consultation regarding Graves' Disease. The patient's relevant symptoms include symptoms of hyperthyroidism. She denies history of previous radiation exposure. Relevant family history includes nothing of significance. The patient denies a history of previous neck surgery. Vocal fold evaluation was not performed. The following portions of the patient's history were reviewed and updated as appropriate: allergies,current medications, family history, medical history, social history, surgical history and problem list. Does not want POSADA. REVIEW OF SYSTEMS Pertinent items are noted in HPI; all other review of systems was negative. OBJECTIVE PHYSICAL EXAM General appearance: alert, oriented, and no acute distress. Neck is soft and supple. Diagnostics TSH, Sensitive, S Date Value Ref Range Status 11/20/2018 <0.01 (L) 0.3 - 4.2 mIU/L Final Comment: Biotin has been identified by the java xml developer as a potential interfering substance. Higher concentrations of biotin may be found in multivitamins, hair/nail supplements, and workout supplements. If the result does not match clinical observations, repeat testing after patient refrains from the use of supplements for at least 12 hours. Calcium, Total, S Date Value Ref Range Status 11/20/2018 9.6 8.6 - 10.0 mg/dL Final Cervical ultrasound: not done Not done ASSESSMENT / PLAN We recommend total thyroidectomy. Allergic to SSKI . Will continue on propranolol. Restart methimazole. Risk, benefits and alternatives were discussed with the patient. Risks discussed included, but not limited to recurrent laryngeal nerve injury, hypoparathyroidism, bleeding, infection, failure to cure,and the potential need for thyroid hormone replacement. Today, I personally spent 30 minutes with the patient, of which greater than 50% of the time was spent in patient education, counseling, and coordination of care as described above. documented in this encounter Plan of Treatment Not on filedocumented as of this encounter Visit Diagnoses Diagnosis Hyperthyroidism documented in this encounter Additional Health Concerns Assessment Noted Time PHQ-9 Depression Total Score: 10/28/2018 2:28 PM CD T documented as of this encounter Care Teams Daytime Caregiver Relationship Specialty Start Date End Date Fausto Good P.A.-C. PCP - General 07/25/[address] [place] [phone] documented as of this encounter
--- OUTSIDE RECORDS SUMMARY | 2022-01-23 07:18 | XMS_ITS | Encounter Summary ---
:1965 Author Organization [facility] Address [address] [place] [address] Care Team Providers Name Role Phone Fausto Good P.A.-C. Primary Care Provider [phone] Encounter Details Date Type Department Care Team Description 07/23/2018 Comprehensive Visit Department of Cam Saleh Graves Disease Ophthalmology eduardo Morris M.D. Personal History [place], [place] [address] (Primary Dx) [address] [place] [phone] Social History Tobacco Use Types Packs/Day Years [...] do you attend adventism or Never 2021 amish services? Do you belong to any clubs [...] to pay for the very basics like [employer] hat hard 02/16/2021 food, housing, medical care, [...] slept in a skilled nursing (including now)? Sex Assigned at Date Recorded Female 10/01/2017 7:47 AM CDT documented as of this encounter Progress Notes Cam Saleh M.D. - 07/23/2018 1:00 PM CDT Hannah Lovecomb was seen today for No chief complaint on file. #1 Graves Disease No I131 give Treated with methimazole, inderal RTc 6 months 10-2 d-15 #2 [place] Mild Comp ref documented in this encounter Plan of Treatment Not on filedocumented as of this encounter Visit Diagnoses Diagnosis Graves Disease Personal History - Primar y documented in this encounter Additional Health Concerns Assessment Noted Time PHQ-9 Depression Total Score: 7 09/12/2014 2:25 PM CDT documented as of this encounter Care Teams Registered Nurse Maternity Relationship Specialty Start Date End Date Fausto Good P.A.-C. PCP - General 07/25/[address] [place] [phone] documented as of this encounter
[2022-01-23 07:19] LABS: Creatinine* 0.7 mg/dL (0.5-1.5); Est. Creatinine Clearance* 72.66; Estimated Glomerular Filt Rate 103 ml/min
--- OUTSIDE RECORDS SUMMARY | 2022-01-23 07:19 | XMS_ITS | Encounter Summary ---
:1965 Author Organization [facility] Address [address] [place] [address] Care Team Providers Name Role Phone Fausto Good P.A.-C. Primary Care Provider [phone] Encounter Details Date Type Department Care Team Description 05/11/2018 Hospital Encounter Department of Sofia Conroy, Jd thyroidism Laboratory Medicine and M.DFarzana Pathology, [address] [address] [place] [address] [place], [place] (Work) [phone] Social History Tobacco Use Types Packs/Day Years [...] or relatives? How often do you attend congregation or Never 2021 restorationist services? Do you belong to any clubs or No 02/16/2021 organizations such as congregation groups, unions, fraternal or athletic groups, or [...] (eight) hours. documented as of this encounter Progress Notes Sofia Conroy M.D. - 05/11/2018 11:59 PM CDT Please document that tests are much better TSH is 0.3 free thyroxine is just below normal at 0.7. How much methimazole is she taking daily now? Th DE documented in this encounter Plan of Treatment Not on filedocumented as of this encounter Procedures Procedure Name Priority Date/Time Associated Diagnosis Comme nts T3 Routine 06/08/2018 11:01 Hyperthyroidism Results for this (TRIIODOTHYRONINE), AM CDT procedur e are in TOT, S the results section. THYROID-STIMULATING Routine 06/08/2018 11:01 Hyperthyroidism R esults for this HORMONE-SENSITIVE AM CDT procedure are in (S-TSH) the results section. T4 (THYROXINE), Routine 06/08/2018 11:01 Hyperthyroidism Resul ts for this FREE, S AM CDT procedure are i n the results section. documented in this encounter Results (ABNORMAL) T4 (Thyroxine), Free (06/08/2018 11:01 AM CDT) Patholo gist Method Time Signature T4 0.7 (L) 0.9 - 1.7 06/09/2018 [facility] (Thyroxine), ng/dL 11:20 AM CDT LABORATORIES - Free, S [facility] Specimen Anatomical Collection Method Collection Time Receive d Time (Source) Location / / Volume Laterality Blood (Blood, 06/08/2018 11:01 06/09/2018 7:33 Venous) AM CDT AM CDT Resulting Agency Comment Mailed In Specimen Sofia Conroy M.D. LAB BLOOD ADD-ON Performing Organization Address City/[facility]/ZIP Code Phon e Number [facility] LABORATORIES - 200 [place], [place] [address] [facility] T3 (Triiodothyronine), Total (06/08/2018 11:01 AM CDT) P athologist Signature T3 98 80 - 200 06/09/2018 [facility] (Triiodothyron ng/dL 11:20 AM CDT LABORATORIES - ine), Total, S [facility] Specimen Anatomical Collection Method Collection Time Receive d Time (Source) Location / / Volume Laterality Blood (Blood, 06/08/2018 11:01 06/09/2018 7:33 Venous) AM CDT AM CDT Resulting Agency Comment Mailed In Specimen Sofia Conroy M.D. LAB BLOOD ADD-ON Performing Organization Address City/State/ZIP Code Phon e Number [facility] LABORATORIES - 200 [place] [address] 05 [facility] S-TSH (Thyroid-Stimulating Hormone - Sensitive) (06/08/2018 11:01 AM CDT) P athologist Signature TSH, Sensitive 0.3 0.3 - 4.2 06/09/2018 [facility] mIU/L 11:18 AM CDT LABORATORIES - [facility] Specimen Anatomical Collection Method Collection Time Receive d Time (Source) Location / / Volume Laterality Blood (Blood, 06/08/2018 11:01 06/09/2018 7:33 Venous) AM CDT AM CDT Resulting Agency Comment Mailed In Specimen Sofia Conroy M.D. LAB BLOOD ADD-ON Performing Organization Address City/[facility]/ZIP Code Phon e Number [facility] LABORATORIES - [address] documented in this encounter Visit Diagnoses Diagnosis Hyperthyroidism documented in this encounter Additional Health Concerns Assessment Noted Time PHQ-9 Depression Total Score: 7 09/12/2014 2:25 PM CDT documented as of this encounter Care Teams Yarding And Folding Machine Operator Relationship Specialty Start Date End Date Fausto Good P.A.-C. PCP - General 07/25/[address] [place] [phone] documented as of this encounter
--- OUTSIDE RECORDS SUMMARY | 2022-01-23 07:19 | XMS_ITS | Encounter Summary ---
:1965 Author Organization [facility] Address [address] [place] [address] Care Team Providers Name Role Phone Fausto Good P.A.-C. Primary Care Provider [phone] Encounter Details Date Type Department Care Team Description 03/20/2018 Hospital Encounter Department of Sofia Conroy, Jd thyroidism Laboratory Medicine and M.DFarzana Pathology, [address] [address] [place] [address] [place], [place] (Work) [address] [phone] Social History Tobacco Use Types Packs/Day Years [...] do you attend pentecostal or Never 2021 jew services? Do you belong to any clubs [...] place to sleep or slept in a mcc (including now)? Sex Assigned at Date Recorded Female 10/01/2017 7:47 AM CDT documented as of this encounter Medications at Time of Discharge Medication Sig Dispensed Refills Start Date End Date EPINEPHrine (EPIPEN) Inject 0.3 mL (0.3 mg 1 each 12/1110/28/2018 0.3 mg/0.3 mL total) intramuscularly injection syringe as needed for anaphylaxis. Inject into the thigh. EPINEPHrine (EPIPEN) Inject 0.3 mL (0.3 mg 1 each 12/1111/30/2018 0.3 mg/0.3 mL total) intramuscularly injection syringe as needed for anaphylaxis. Inject into the thigh. methIMAzole Take 4 tablets (20 mg 270 tablet 3 01/19/2018 (TAPAZOLE) 5 mg total) by mouth daily. tablet propranolol Take 0.5 tablets (10 mg 270 tablet 3 12/22/2017 05/04/2018 (INDERAL) 20 mg total) by mouth every 8 tablet (eight) hours. documented as of this encounter Progress Notes Sofia Conroy M.D. - 03/20/2018 11:59 PM CST Her thyroid is again overactive , how much methimazole is she on? We might need to do the radioactive ablation. Please have her come for a 30 min visit FridayMay 04. Thanks, DE documented in this encounter Plan of Treatment Not on filedocumented as of this encounter Procedures Procedure Name Priority Date/Time Associated Diagnosis Comme nts ASPARTATE Routine 04/20/2018 12:31 Hyperthyroidism Results for this AMINOTRANSFERASE (AST), PM CDT proc edure are in S/P the results section. THYROID-STIMULATING Routine 04/20/2018 12:31 Hyperthyroidism R esults for this HORMONE-SENSITIVE PM CDT procedure are in (S-TSH) the results section. T4 (THYROXINE), FREE, S Routine 04/20/2018 12:31 Hyperthyroidi sm Results for this PM CDT procedure are i n the results section. ALKALINE PHOSPHATASE, Routine 04/20/2018 12:31 Hyperthyroidism Results for this S/P PM CDT procedure are i n the results section. documented in this encounter Results (ABNORMAL) T4 (Thyroxine), Free (04/20/2018 12:31 PM CDT) [facility] Method Time Signature T4 1.8 (H) 0.9 - 1.7 04/22/2018 [facility] (Thyroxine), ng/dL 1:56 PM CDT LABORATORIES - [facility], [facility] Specimen Anatomical Collection Method Collection Time Receive d Time (Source) Location / / Volume Laterality Blood (Blood, 04/20/2018 12:31 04/22/2018 Venous) PM CDT 12:39 PM CDT Resulting Agency Comment Mailed In Specimen Sofia Conroy M.D. LAB BLOOD ADD-ON Performing Organization Address City/[facility] Code Phon e Number [facility] LABORATORIES - [address] (ABNORMAL) S-TSH (Thyroid-Stimulating Hormone - Sensitive) (04/20/2018 12:31 PM CDT) [facility] Method Time Signature TSH, Sensitive <0.01 (L) 0.3 - 4.2 04/22/2018 [facility] mIU/L 1:56 PM CDT LABORATORIES - [facility] Specimen Anatomical Collection Method Collection Time Receive d Time (Source) Location / / Volume Laterality Blood (Blood, 04/20/2018 12:31 04/22/2018 Venous) PM CDT 12:39 PM CDT Resulting Agency Comment Mailed In Specimen Sofia Conroy M.D. LAB BLOOD ADD-ON Performing Organization Address City/[facility] Phon e Number [facility] LABORATORIES - [address] [place] [address] [facility] (ABNORMAL) Alkaline phosphatase (04/20/2018 12:31 PM CDT) [facility] Method Time Signature Alkaline 119 (H) 35 - 104 04/22/2018 [facility] Phosphatase, S U/L 1:56 PM CDT LABORATORIES - [facility] Specimen Anatomical Collection Method Collection Time Receive d Time (Source) Location / / Volume Laterality Blood (Blood, 04/20/2018 12:31 04/22/2018 Venous) PM CDT 12:39 PM CDT Resulting Agency Comment Mailed In Specimen Sofia Conroy M.D. LAB BLOOD ADD-ON Performing Organization Address City/[facility] Phon e Number [facility] LABORATORIES - [address] [place] [address] [facility] AST (04/20/2018 12:31 PM CDT) [facility] Method Time Signature Aspartate 18 8 - 43 04/22/2018 [facility] Aminotransferase U/L 1:56 PM CDT LABORATORIE S - (AST), S [facility] Specimen Anatomical Collection Method Collection Time Receive d Time (Source) Location / / Volume Laterality Blood (Blood, 04/20/2018 12:31 04/22/2018 Venous) PM CDT 12:39 PM CDT Resulting Agency Comment Mailed In Specimen Sofia Conroy M.D. LAB BLOOD ADD-ON Performing Organization Address City/[facility] Code Phon e Number [facility] LABORATORIES - [address] documented in this encounter Visit Diagnoses Diagnosis Hyperthyroidism documented in this encounter Additional Health Concerns Assessment Noted Time PHQ-9 Depression Total Score: 7 09/12/2014 2:25 PM CDT documented as of this encounter Care Teams Unemployment Inspector Relationship Specialty Start Date End Date Fausto Good P.A.-C. PCP - General 07/25/[address] [place] [phone] documented as of this encounter
--- OUTSIDE RECORDS SUMMARY | 2022-01-23 07:19 | XMS_ITS | Encounter Summary ---
:1965 Author Organization [facility] Address [address] [place] [address] Care Team Providers Name Role Phone Fausot Good P.A.-C. Primary Care Provider [phone] Encounter Details Date Type Department Care Team Description 12/25/2017 Orders Only Department of [facility] Fausto Good, Medicine, [facility], PSerg Jerez in [facility] [address] [facility] [address] [place] [address] [place], [place] [phone] Social History Tobacco Use Types Packs/Day Years [...] do you attend adventism or Never 2021 shinto services? Do you [...] to pay for the very basics like [employer] hat hard 02/16/2021 food, housing, medical care, [...] or slept in a penitentiary (including now)? Sex Assigned at Date Recorded Female 10/01/2017 7:47 AM CDT documented as of this encounter Plan of Treatment Not on filedocumented as of this encounter Visit Diagnoses Not on filedocumented in this encounter Additional Health Concerns Assessment Noted Time PHQ-9 Depression Total Score: 7 09/12/2014 2:25 PM CDT documented as of this encounter Care Teams Egg Grader Relationship Specialty Start Date End Date Fausto Good P.A.-C. PCP - General 07/25/[address] [place] [phone] documented as of this encounter
--- OUTSIDE RECORDS SUMMARY | 2022-01-23 07:19 | XMS_ITS | Encounter Summary ---
:1965 Author Organization [facility] Address [address] [place] [address] Care Team Providers Name Role Phone Fausto Good P.A.-C. Primary Care Provider [phone] Reason for Visit Reason Onset Date Comments epi pen request 12/25/2017 Encounter Details Date Type Department Care Team Description 12/25/2017 Clinical Communication Department of estefania Lam [facility], [place] [facility] [address] [address] [place], [place] [phone] (Work) [phone] Social History Tobacco Use Types Packs/Day Years [...] do you attend restorationist or Never 2021 gnosticist services? Do you [...] or slept in a half-way (including now)? Sex Assigned at Date Recorded Female 10/01/2017 7:47 AM CDT documented as of this encounter Miscellaneous Notes Telephone Encounter - Karlee Miller R.N. - 12/25/2017 3:07 PM CST SUBJECTIVE CHIEF COMPLAINT / REASON FOR CALL epi pen request INFORMATION DISCUSSED Informed patient that Rx was refilled and sent to [facility], that is what is listed as her only primary pharmacy. Patient would like that changed and asked that the Rx go to [facility]. I updated the pharmacy. Called [facility] and they will request transfer of epi pen prescription. PLAN Disposition/Recommendation: N/A Education: patient/caller able to teach back Caller agreeable to plan of care: yes The following references were used: nursing clinical judgement STICS OPERATIONS MANAGER Telephone Encounter - Fausto Good P.A.-C. - 12/25/2017 2:55 PM LOGISTICS OPERATIONS MANAGER Done STICS OPERATIONS MANAGER Telephone Encounter - Ansley Rogers - 12/25/2017 12:49 PM CST Her EPI-pen in 2011 she would like a replacement sent to her pharmacy. She has had a couple of recent episodes of hives and would be more comfortable having this on hand. She uses [facility]. STICS OPERATIONS MANAGER documented in this encounter Plan of Treatment Not on filedocumented as of this encounter Visit Diagnoses Not on filedocumented in this encounter Additional Health Concerns Assessment Noted Time PHQ-9 Depression Total Score: 7 09/12/2014 2:25 PM CDT documented as of this encounter Care Teams Time Broker Relationship Specialty Start Date End Date Fausto Good P.A.-C. PCP - General 07/25/[address] [place] [phone] documented as of this encounter
--- OUTSIDE RECORDS SUMMARY | 2022-01-23 07:19 | XMS_ITS | Encounter Summary ---
:1965 Author Organization [facility] Address [address] [place] [address] Care Team Providers Name Role Phone Fausto Good P.A.-C. Primary Care Provider [phone] Reason for Visit Outpatient (Routine) - Closed Specialty Diagnoses / Procedures Referred By Contact Refer red To Contact Endocrinology Diagnoses Hyperthyroidism Sofia Conroy M.D. [facility] [address] [place] [phone] Referral ID Status Reason Start Date Expiration Date Visits Requ ested Visits Authorized [id number] Closed 04/23/2018 04/23/2019 1 1 Encounter Details Date Type Department Care Team Description 05/04/2018 Office Visit Division of Endocrinology Sofia Conroy, Hyperthyroidism in [facility] mimi Pollard [address] [facility] [address] [place] [address] [place], [place] [phone] Social History Tobacco Use Types Packs/Day Years [...] do you attend yarsani or Never 2021 jewish services? Do you belong to any clubs or No 02/16/2021 organizations such as yarsani groups, unions, [employer] or athletic groups, or school groups? How [...] Sign Reading Time Taken Comments Blood Pressure 173/93 05/04/2018 11:44 Average of 6 re adings AM CDT Pulse 78 05/04/2018 11:44 Average of 6 re adings AM CDT Temperature - - Respiratory Rate - - Oxygen Saturation - - Inhaled Oxygen - - Concentration Weight 72.2 kg (159 lb 2.8 05/04/2018 11:44 oz) AM CDT Height 158.7 cm (5' 2.48) 05/04/2018 11:44 AM CDT Body Mass Index 28.67 05/04/2018 11:44 AM CDT documented in this encounter Progress Notes Sofia Conroy M.D. - 05/04/2018 12:00 PM CDT SUBJECTIVE HISTORY OF PRESENT ILLNESS The patient is a 52-year-old woman who I follow for Graves' disease. She had decrease in methimazoleseveral months ago to 10 mg a day. However, over the last few weeks has noticed more palpitations and more sleep issues and perhaps more tremor. She has had some hair loss but weight gain, about 10 pounds. Her thyroid tests had improved initially but now there is evidence of hyperthyroidism again. TSHis 0.01, although these never had normalized. Her free T4 used to be at 0.9 and now is 1.8. The patient does not have signs of Graves' ophthalmopathy, but she intermittently smokes. She is on Inderal 10 mg 3 times a day. The patient previously had severe urticaria and we were considering whether this was methimazole related but she wanted to continue it and Allergy approved it. She did not have recurrence of urticaria yet. Alkaline phosphatase is 119, which is better than it was. OBJECTIVE PHYSICAL EXAMINATION Vital Signs: Blood pressure 173/93, pulse 78, height 158, weight 72 kg. Eyes : No proptosis, chemosis, or lid lag. Thyroid : Palpable, about 40 g. Neuro : Minimal amount of fine tremor. Skin : No evidence of increased perspiration. Heart : Regular rate and rhythm. No murmur. ASSESSMENT / PLAN #1 Graves' disease with hyperthyroidism I asked the patient to increase methimazole to 25 mg a day and provided a new prescription. She needs to increase Inderal to 20 mg 3 times a day and follow blood pressure with her primary physician within 2 weeks to see if other adjustments to antihypertensives need to be made. I would recommend that in 6 weeks her thyroid tests are repeated. We can continue antithyroid therapy for now. She understands the risk with liver disease. However, if the patient's thyroid continues to be problematic as far as control after almost 9 months on treatment, she might consider more definitive therapy with iodinetherapy. She understands this. I also advised her to discontinue smoking completely as iodine therapy occasionally might exacerbate eye disease. The thyroid uptake on scan in the past showed findings consistent with Graves' disease but also some ectopic uptake in the inferior aspect of the thyroid which thought possibly might be related to cyst or contamination. Radiologist recommended that at one point we have also an ultrasound of thyroid to check for this issue and I will order it. Six-week recheck recommended. CT CT Job ID: [id number] documented in this encounter Plan of Treatment Not on filedocumented as of this encounter Results (ABNORMAL) T4 (Thyroxine), Free (06/08/2018 11:01 AM CDT) Patholo gist Method Time Signature T4 0.7 (L) 0.9 - 1.7 06/09/2018 [facility] (Thyroxine), ng/dL 11:20 AM CDT LABORATORIES - Free, S [facility] Specimen Anatomical Collection Method Collection Time Receive d Time (Source) Location / / Volume Laterality Blood (Blood, 06/08/2018 11:01 06/09/2018 7:33 Venous) AM CDT AM CDT Resulting Agency Comment Mailed In Specimen Sofia Conroy M.D. LAB BLOOD ADD-ON Performing Organization Address City/[facility]/ZIP Code Phon e Number [facility] LABORATORIES - [address] T3 (Triiodothyronine), Total (06/08/2018 11:01 AM CDT) P athologist Signature T3 98 80 - 200 06/09/2018 [facility] (Triiodothyron ng/dL 11:20 AM CDT LABORATORIES - ine), Total, S [facility] Specimen Anatomical Collection Method Collection Time Receive d Time (Source) Location / / Volume Laterality Blood (Blood, 06/08/2018 11:01 06/09/2018 7:33 Venous) AM CDT AM CDT Resulting Agency Comment Mailed In Specimen Sofia Conroy M.D. LAB BLOOD ADD-ON Performing Organization Address City/[facility]/ZIP Code Phon e Number [facility] LABORATORIES - 200 [place] [address] [facility] S-TSH (Thyroid-Stimulating Hormone - Sensitive) (06/08/2018 11:01 AM CDT) P athologist Signature TSH, Sensitive 0.3 0.3 - 4.2 06/09/2018 [facility] mIU/L 11:18 AM CDT LABORATORIES - [facility] Specimen Anatomical Collection Method Collection Time Receive d Time (Source) Location / / Volume Laterality Blood (Blood, 06/08/2018 11:01 06/09/2018 7:33 Venous) AM CDT AM CDT Resulting Agency Comment Mailed In Specimen Sofia Conroy M.D. LAB BLOOD ADD-ON Performing Organization Address City/State/ZIP Code Phon e Number [facility] LABORATORIES - [address] [place], [place] [address] [facility] documented in this encounter Visit Diagnoses Diagnosis Hyperthyroidism documented in this encounter Additional Health Concerns Assessment Noted Time PHQ-9 Depression Total Score: 7 09/12/2014 2:25 PM CDT documented as of this encounter Care Teams Export Freight Specialist Relationship Specialty Start Date End Date Fausto Good P.A.-C. PCP - General 07/25/[address] [place] [phone] documented as of this encounter
--- OUTSIDE RECORDS SUMMARY | 2022-01-23 07:19 | XMS_ITS | Encounter Summary ---
:1965 Author Organization [facility] Address [address] [place] [address] Care Team Providers Name Role Phone Fausto Good P.A.-C. Primary Care Provider [phone] Encounter Details Date Type Department Care Team Description 01/27/2018 Hospital Encounter Department of Sofia Conroy, Jd thyroidism Laboratory Medicine and M.DFarzana Pathology, [address] [address] [place] [address] [place], [place] (Work) [phone] [phone] Social History Tobacco Use Types Packs/Day Years [...] or relatives? How often do you attend samaritan or Never 2021 roman catholic services? Do you belong to any clubs or No 02/16/2021 organizations such as samaritan groups, unions, fraternal or athletic groups, or [...] or slept in a longterm (including now)? Sex Assigned at Date Recorded [...] encounter Progress Notes Sofia Conroy M.D. - 01/27/2018 11:59 PM CST Please inform the patient that thyroid tests are stable her free thyroxine is normal at 0.9 TSH is still suppressed. She should continue on current dose of methimazole please verify the dose. Had livertests are stable. The same above test should be repeated in approximately 2-3 months. Can she return for an appointment? STOCK FEEDER documented in this encounter Plan of Treatment Not on filedocumented as of this encounter Procedures Procedure Name Priority Date/Time Associated Diagnosis Comme nts ASPARTATE Routine 02/16/2018 9:13 Hyperthyroidism Results f or this AMINOTRANSFERASE (AST), AM LIVESTOCK FEEDER proc edure are in S/P the results section. THYROID-STIMULATING Routine 02/16/2018 9:13 Hyperthyroidism Re sults for this HORMONE-SENSITIVE AM LIVESTOCK FEEDER procedure are in (S-TSH) the results section. T4 (THYROXINE), FREE, S Routine 02/16/2018 9:13 Hyperthyroidis m Results for this AM LIVESTOCK FEEDER procedure are i n the results section. ALKALINE PHOSPHATASE, Routine 02/16/2018 9:13 Hyperthyroidism Results for this S/P AM LIVESTOCK FEEDER procedure are i n the results section. documented in this encounter Results AST (02/16/2018 9:13 AM LIVESTOCK FEEDER) [facility] Method Time Signature Aspartate 18 8 - 43 02/17/2018 [facility] Aminotransferase U/L 10:36 AM LABORATORIES - (AST), S LIVESTOCK FEEDER [facility] Specimen Anatomical Collection Method Collection Time Receive d Time (Source) Location / / Volume Laterality Blood (Blood, 02/16/2018 9:13 AM 02/17/19 9:26 Venous) LIVESTOCK FEEDER AM LIVESTOCK FEEDER Resulting Agency Comment Mailed In Specimen Sofia Conroy M.D. LAB BLOOD ADD-ON Performing Organization Address City/State/ZIP Code Phon e Number [facility] LABORATORIES - [address] (ABNORMAL) Alkaline Phosphatase (02/16/2018 9:13 AM LIVESTOCK FEEDER) [facility] Method Time Signature Alkaline 132 (H) 35 - 104 02/17/2018 [facility] Phosphatase, S U/L 10:36 AM LIVESTOCK FEEDER LABORATORIES - [facility] Specimen Anatomical Collection Method Collection Time Receive d Time (Source) Location / / Volume Laterality Blood (Blood, 02/16/2018 9:13 AM 02/17/19 19 9:26 Venous) LIVESTOCK FEEDER AM LIVESTOCK FEEDER Resulting Agency Comment Mailed In Specimen Sofia Conroy M.D. LAB BLOOD ADD-ON Performing Organization Address City/[facility] Phon e Number [facility]IES - [address] [place] [address] [facility] (ABNORMAL) S-TSH (Thyroid-Stimulating Hormone - Sensitive) (02/16/2018 9:13 AM LIVESTOCK FEEDER) Patholo gist Method Time Signature TSH, Sensitive 0.02 (L) 0.3 - 4.2 02/17/2018 [facility] mIU/L 10:36 AM LIVESTOCK FEEDER LABORATORIES - [facility] Specimen Anatomical Collection Method Collection Time Receive d Time (Source) Location / / Volume Laterality Blood (Blood, 02/16/2018 9:13 AM 02/17/19 9:26 Venous) LIVESTOCK FEEDER AM LIVESTOCK FEEDER Resulting Agency Comment Mailed In Specimen Sofia Conroy M.D. LAB BLOOD ADD-ON Performing Organization Address City/State/ZIP Code Phon e Number [facility]IES - [address] [place] [address] [facility] T4 (Thyroxine), Free (02/16/2018 9:13 AM LIVESTOCK FEEDER) P athologist Signature T4 0.9 0.9 - 1.7 02/17/2018 [facility] (Thyroxine), ng/dL 10:36 AM LIVESTOCK FEEDER LABORATORIES - [facility] Specimen Anatomical Collection Method Collection Time Receive d Time (Source) Location / / Volume Laterality Blood (Blood, 02/16/2018 9:13 AM 02/17/19 19 9:26 Venous) LIVESTOCK FEEDER AM LIVESTOCK FEEDER Resulting Agency Comment Mailed In Specimen Sofia Conroy M.D. LAB BLOOD ADD-ON Performing Organization Address City/[facility]/ZIP Code Phon e Number [facility]IES - [address] documented in this encounter Visit Diagnoses Diagnosis Hyperthyroidism documented in this encounter Additional Health Concerns Assessment Noted Time PHQ-9 Depression Total Score: 7 09/12/2014 2:25 PM CDT documented as of this encounter Care Teams Manufacturing Weaver Relationship Specialty Start Date End Date Fausto Good P.A.-C. PCP - General 07/25/[address] [place] [phone] documented as of this encounter
--- OUTSIDE RECORDS SUMMARY | 2022-01-23 07:19 | XMS_ITS | Encounter Summary ---
:1965 Author Organization [facility] Address [address] [place] [address] Care Team Providers Name Role Phone Fausto Good P.A.-C. Primary Care Provider [phone] Encounter Details Date Type Department Care Team Description 01/07/2018 Orders Only Department of Family [facility] (Primary Medicine, Zahra Crow Dx) Clinic, in [address] [address] [place], [place] [phone] (Work) [phone] Social History Tobacco Use Types Packs/Day Years [...] do you attend christian or Never 2021 taoist services? Do you [...] to pay for the very basics like Trelligencew hat hard 02/16/2021 food, housing, medical care, [...] filedocumented as of this encounter Results (ABNORMAL) S-TSH (Thyroid-Stimulating Hormone - Sensitive) (01/08/2018 12:42 PM FULL TIME STAFF INTERPRETER) Analysis Performed At Patho logist Time Signature TSH, Sensitive <0.01 (L) 0.3 - 4.2 01/08/2018 [facility] mIU/L 6:57 PM FULL TIME STAFF INTERPRETER [facility] LAB Comment: Biotin has been identified by the [...] Location / / Volume Laterality Blood (Blood, 01/08/2018 12:42 01/08/2018 6:57 Venous) PM FULL TIME STAFF INTERPRETER PM FULL TIME STAFF INTERPRETER Fausto Good P.A.-C. LAB BLOOD ADD-ON Performing Organization Address City/State/ZIP Code Phon e Number [facility] [address] [place] [address] LAB documented in this encounter Visit Diagnoses Diagnosis Hyperthyroidism - Primary documented in this encounter Additional Health Concerns Assessment Noted Time PHQ-9 Depression Total Score: 7 09/12/2014 2:25 PM CDT documented as of this encounter Care Teams Unstacker Relationship Specialty Start Date End Date Fausto Good P.A.-C. PCP - General 07/25/[address] [place] [phone] documented as of this encounter
--- OUTSIDE RECORDS SUMMARY | 2022-01-23 07:19 | XMS_ITS | Encounter Summary ---
:1965 Author Organization [facility] Address [address] [place] [address] Care Team Providers Name Role Phone Fausto Good P.A.-C. Primary Care Provider Encounter Details Date Type Department Care Team Description 01/08/2018 Hospital Encounter Department of Fausto Good Hyp erthyroidism Laboratory Medicine in [place], [place] [address] [address] [phone] Social History Tobacco Use Types Packs/Day Years [...] do you attend buddhism or Never 2021 jainism services? Do you [...] to pay for the very basics like JamStarw hat hard 02/16/2021 food, housing, medical care, [...] anaphylaxis. Inject into the thigh. methIMAzole Take 2 tablets (10 mg 270 tablet 3 12/22/2017 (TAPAZOLE) 5 mg total) by mouth daily. tablet propranolol Take 0.5 tablets (10 mg 270 tablet 3 12/22/2017 05/04/2018 (INDERAL) 20 mg total) by mouth every 8 tablet (eight) hours. documented as of this encounter Plan of Treatment Not on filedocumented as of this encounter Procedures Procedure Name Priority Date/Time Associated Diagnosis Comme nts THYROID-STIMULATING Routine 01/08/2018 12:42 Hyperthyroidism R esults for this HORMONE-SENSITIVE PM ASSEMBLER INSULATOR procedure are in (S-TSH) the results section. documented in this encounter Results (ABNORMAL) S-TSH (Thyroid-Stimulating Hormone - Sensitive) (01/08/2018 12:42 PM ASSEMBLER INSULATOR) Analysis Performed At Patho logist Time Signature TSH, Sensitive <0.01 (L) 0.3 - 4.2 01/08/2018 [facility] mIU/L 6:57 PM ASSEMBLER INSULATOR [facility] Comment: Biotin has been identified by the lazarus singh as a potential interfering substance. ??Higher concentr ations of biotin may be found in multivitamins, hair/nail supple ments, and workout supplements. ??If the result does not ma [facility] clinical observations, repeat testing after patient refrains fr om the use of supplements for at least 12 hours. Specimen Anatomical Collection Method Collection Time Receive d Time (Source) Location / / Volume Laterality Blood (Blood, 01/08/2018 12:42 01/08/2018 6:57 Venous) PM ASSEMBLER INSULATOR PM ASSEMBLER INSULATOR Fausto Good P.A.-C. LAB BLOOD ADD-ON Performing Organization Address City/State/ZIP Code Phon e Number [facility] [phone], [place] [address] LAB documented in this encounter Visit Diagnoses Diagnosis Hyperthyroidism documented in this encounter Additional Health Concerns Assessment Noted Time PHQ-9 Depression Total Score: 7 09/12/2014 2:25 PM CDT documented as of this encounter Care Teams Culinary Arts Teacher Relationship Specialty Start Date End Date Fausto Good P.A.-C. PCP - General 07/25/16 [address] [place] [phone] documented as of this encounter
--- OUTSIDE RECORDS SUMMARY | 2022-01-23 07:19 | XMS_ITS | Encounter Summary ---
:1965 Author Organization [facility] Address [address] [place] [address] Care Team Providers Name Role Phone Fausto Good P.A.-C. Primary Care Provider [phone] Encounter Details Date Type Department Care Team Description 12/30/2017 Orders Only Department of Family Fausto Good [facility] Medicine, Mariela Gerardo Primary (Primary Dx) Clinic, in [address] [address] [place], [place] [phone] (Work) [phone] Social History Tobacco Use Types Packs/Day Years [...] or relatives? How often do you attend jehovah's witness or Never 2021 taoist services? Do you belong to any clubs or No 02/16/2021 organizations such as jehovah's witness groups, unions, fraternal or athletic groups, or [...] to pay for the very basics like MOO.COMw hat hard 02/16/2021 food, housing, medical care, [...] or slept in a custodial (including now)? Sex Assigned at Date Recorded Female 10/01/2017 7:47 AM CDT documented as of this encounter Plan of Treatment Not on filedocumented as of this encounter Visit Diagnoses Diagnosis Hypertension Essential Primary - Primary documented in this encounter Additional Health Concerns Assessment Noted Time PHQ-9 Depression Total Score: 7 09/12/2014 2:25 PM CDT documented as of this encounter Care Teams Helmet Binder Relationship Specialty Start Date End Date Fausto Good P.A.-C. PCP - General 07/25/16 [address] [place] [phone] documented as of this encounter
--- OUTSIDE RECORDS SUMMARY | 2022-01-23 07:19 | XMS_ITS | Encounter Summary ---
:1965 Author Organization [facility] Address [address] [place] [address] Care Team Providers Name Role Phone Fausto Good P.A.-C. Primary Care Provider [phone] Encounter Details Date Type Department Care Team Description 01/19/2018 Orders Only Department [facility], Zahra Crow Dx) Clinic, in [address] [address] [place], [place] [phone] (Work) [phone] Social History Tobacco Use Types Packs/Day Years [...] do you attend taoist or Never 2021 scientology services? Do you belong to any clubs [...] to pay for the very basics like IMNw hat hard 02/16/2021 food, housing, medical care, [...] slept in a group home (including now)? Sex Assigned at Date Recorded Female 10/01/2017 7:47 AM CDT documented as of this encounter Plan of Treatment Not on filedocumented as of this encounter Visit Diagnoses Diagnosis Hyperthyroidism - Primary documented in this encounter Additional Health Concerns Assessment Noted Time PHQ-9 Depression Total Score: 7 09/12/2014 2:25 PM CDT documented as of this encounter Care Teams Pilot Plant Operator Helper Relationship Specialty Start Date End Date Fausto Good P.A.-C. PCP - General 07/25/16 [address] [place] [phone] documented as of this encounter
--- OUTSIDE RECORDS SUMMARY | 2022-01-23 07:19 | XMS_ITS | Encounter Summary ---
:1965 Author Organization [facility] Address [address] [place] [address] Care Team Providers Name Role Phone Fausto Good P.A.-C. Primary Care Provider [phone] Reason for Visit Reason Comments Med Refill Encounter Details Date Type Department Care Team Description 01/20/2018 Refill Department of Family Medicine, Fausto Aldrich P.A.-C. Med Refill [facility], in [address] [place] [phone] [place] [address] [place] [address] [phone] Social History Tobacco Use Types Packs/Day Years [...] do you attend mormonism or Never 2021 adventism services? Do you belong to any clubs [...] this encounter Miscellaneous Notes Telephone Encounter - Ansley Baires R.N. - 01/20/2018 9:45 AM CST SUBJECTIVE CHIEF COMPLAINT / REASON FOR CALL Med Refill Patient is requesting the following information: Proper dosage of Methimazole - pharmacy requesting. PLAN The following information was provided: Per result notes - Fausto spoke with endocrinology and they recommend 20 mg daily. Pharmacy notified. They will delete Rx for 15 mg. Education: patient/caller able to teach back The following references were used: provider Fausto Good documentation on 01/19/18. ARY COUNSELOR Telephone Encounter - Nicolette Rapp - 01/20/2018 8:09 AM CST Provider: Fausto Good Pharmacy: [facility] Medication: Methimazole 5 mg, take 3 tablets by mouth daily Communication Please clarify which dose to fill 20 mg or 15 mg ARY COUNSELOR documented in this encounter Plan of Treatment Not on filedocumented as of this encounter Visit Diagnoses Not on filedocumented in this encounter Additional Health Concerns Assessment Noted Time PHQ-9 Depression Total Score: 7 09/12/2014 2:25 PM CDT documented as of this encounter Care Teams Inspector Open Die Relationship Specialty Start Date End Date Fausto Good P.A.-C. PCP - General 07/25/[address] [place] [phone] documented as of this encounter
--- OUTSIDE RECORDS SUMMARY | 2022-01-23 07:19 | XMS_ITS | Encounter Summary ---
:1965 Author Organization [facility] Address [address] [place] [address] Care Team Providers Name Role Phone Fausto Good P.A.-C. Primary Care Provider [phone] Encounter Details Date Type Department Care Team Description 01/06/2018 Clinical Communication Department of Fausto Lam [facility], Juan Gerardo [facility] [place], in [address] [address] [place], [place] [phone] [phone] (Work) [phone] Social History Tobacco Use Types Packs/Day Years [...] do you attend protestant or Never 2021 bahai services? Do you belong to any clubs [...] to pay for the very basics like Robotronica hat hard 02/16/2021 food, housing, medical care, [...] or slept in a fpc (including now)? Sex Assigned at Date Recorded Female 10/01/2017 7:47 AM CDT documented as of this encounter Miscellaneous Notes Telephone Encounter - Courtney Carrion L.P.N. - 01/07/2018 4:32 PM OCCUPATIONAL THERAPY INSTRUCTOR Patient is aware and she is scheduling that for 01/08/18. PATIONAL THERAPY INSTRUCTOR Telephone Encounter - Fausto Good P.A.-C. - 01/07/2018 1:21 PM OCCUPATIONAL THERAPY INSTRUCTOR Done PATIONAL THERAPY INSTRUCTOR Telephone Encounter - Courtney Carrion L.P.N. - 01/06/2018 9:48 AM OCCUPATIONAL THERAPY INSTRUCTOR Fausto, Patient states she has graves disease and states she needs her levels drawn to make sure her levels are therapeutic with her medication dose, or if the medication dose needs to be adjusted? She states they draw her blood for this q 3 months. If you are in agreement, can you put in the lab orders and we can call the patient to have this done prior to the 09 of January? She states she will be without insurance until Feb 2018. Thank you. PATIONAL THERAPY INSTRUCTOR Telephone Encounter - Sarita Rodriguez - 01/06/2018 9:33 AM CST Reason for Communication: Pt will lose health insurance on January 10, so would like labs and whatever else can be done before or on the Current Can Nursing/Provider leave a detailed message: yes Action Needed: please add any active requests and call pt to advise Name of Medication (if relevant): na PATIONAL THERAPY INSTRUCTOR documented in this encounter Plan of Treatment Not on filedocumented as of this encounter Visit Diagnoses Not on filedocumented in this encounter Additional Health Concerns Assessment Noted Time PHQ-9 Depression Total Score: 7 09/12/2014 2:25 PM CDT documented as of this encounter Care Teams Fur Dresser Relationship Specialty Start Date End Date Fausto Good P.A.-C. PCP - General 07/25/[address] [place] [phone] documented as of this encounter
--- OUTSIDE RECORDS SUMMARY | 2022-01-23 07:19 | XMS_ITS | Encounter Summary ---
:1965 Author Organization [facility] Address [address] [place] [address] Care Team Providers Name Role Phone Fausto Good P.A.-C. Primary Care Provider [phone] Reason for Visit Appointment Request (Routine) - Closed Specialty Diagnoses / Procedures Referred By Contact Refer red To Contact Family Medicine Referral ID Status Reason Start Date Expiration Date Visits Requ ested Visits Authorized [id number] Closed 06/05/2018 06/05/2019 1 Encounter Details Date Type Department Care Team Description 06/08/2018 Hospital Encounter Department of Sofia Conroy, Hyper thyroidism Laboratory Medicine in [place], [place] [address] [facility] [address] [place] [phone] [phone] Social History Tobacco Use Types Packs/Day Years [...] or relatives? How often do you attend yazidi or Never 2021 mu-ism services? Do you belong to any clubs or No 02/16/2021 organizations such as yazidi groups, unions, fraternal or athletic groups, or [...] Routine Hyperthyroidism Once for 1 Occurrences starting 06/08/2018 unti l 06/08/2018 documented as of this encounter Visit Diagnoses Diagnosis Hyperthyroidism documented in this encounter Additional Health Concerns Assessment Noted Time PHQ-9 Depression Total Score: 7 09/12/2014 2:25 PM CDT documented as of this encounter Care Teams Cloth Shearing Supervisor Relationship Specialty Start Date End Date Fausto Good P.A.-C. PCP - General 07/25/[address] [place] [phone] documented as of this encounter
--- OUTSIDE RECORDS SUMMARY | 2022-01-23 07:19 | XMS_ITS | Encounter Summary ---
:1965 Author Organization [facility] Address [address] [place] [address] Care Team Providers Name Role Phone Fausto Good P.A.-C. Primary Care Provider [phone] Encounter Details Date Type Department Care Team Description 05/11/2018 Hospital Encounter Department of Conroy, Sofia, Hyper thyroidism Radiology, [facility], in [address] [place] [address] [place], [place] [phone] (Work) [phone] Social History Tobacco Use Types Packs/Day Years [...] do you attend sabianist or Never 2021 yarsanism services? Do you belong to any clubs [...] Progress Notes Sofia Conroy M.D. - 05/11/2018 7:56 AM CDT Please inform the patient that ultrasound of thyroid was consistent with Graves disease no evidence of any suspicious nodules or any nodules at all. documented in this encounter Plan of Treatment Not on filedocumented as of this encounter Procedures Procedure Name Priority Date/Time Associated Diagnosis Comme nts US THYROID RAD - Routine 05/11/2018 7:31 Hyperthyroidism Results for this (most inpatients AM CDT procedure a re in and all the results outpatients) section. documented in this encounter Results US Thyroid (05/11/2018 7:31 AM CDT) Anatomical Region Laterality Modality Head and Neck, Ultrasound RST LOS, Ultrasound ARZ LOS, N/A Ultrasound Ultrasound FLA LOS Specimen (Source) Anatomical Collection Method Collection Time Re ceived Time Location / / Volume Laterality 05/11/2018 7:33 AM CDT Impressions 05/11/2018 7:37 AM CDT IMPRESSION: Diffuse heterogeneity of the thyroid parenchyma and hyperemia may reflect thyroiditis or Graves' disease. No distinct thyroid nodules. No masses or cysts seen in the neck. Narrative 05/11/2018 7:37 AM CDT EXAM: US THYROID COMPARISON: Nuclear medicine thyroid sca n 10/08/2017 FINDINGS: The right thyroid lobe measures: 1.4 cmx 2.0 cmx4.5 cm The left thyroid lobe measures: 1.7 cmx2 .0 cmx5.1 cm The isthmus measures: 3 mm in AP diamete r. Thyroid parenchymal evaluation shows: Di ffuse heterogeneity of the thyroid parenchyma and hyperemia may reflect thy roiditis or Graves' disease. No distinct thyroid nodules. No masses or cysts seen in the neck. Lymph nodes: ??Neck levels 1-7 were surv eyed and demonstrated normal nodes. The thyroid nodule descriptions and christian gories are based on the Thyroid Nodule Care Process Model established by the [facility] [place]. [email or web address] Procedure Note Nayeli Martinez M.D. - 05/11/2018Form atting of this note might be different from the original. EXAM: US THYROID COMPARISON: Nuclear medicine thyroid sca n 10/08/2017 FINDINGS: The right thyroid lobe measures: 1.4 cmx 2.0 cmx4.5 cm The left thyroid lobe measures: 1.7 cmx2 .0 cmx5.1 cm The isthmus measures: 3 mm in AP diamete r. Thyroid parenchymal evaluation shows: Di ffuse heterogeneity of the thyroid parenchyma and hyperemia may reflect thy roiditis or Graves' disease. No distinct thyroid nodules. No masses or cysts seen in the neck. Lymph nodes: Neck levels 1-7 were survey ed and demonstrated normal nodes. The thyroid nodule descriptions and christian gories are based on the Thyroid Nodule Care Process Model established by the [facility] [place]. [email or web address]-[email or web address] IMPRESSION: Diffuse heterogeneity of the thyroid parenchyma and hyperemia may reflect thyroiditis or Graves' disease. No distinct thyroid nodules. No masses or cysts seen in the neck. Sofia Conroy M.D. IMG US PROCEDURES documented in this encounter Visit Diagnoses Diagnosis Hyperthyroidism documented in this encounter Additional Health Concerns Assessment Noted Time PHQ-9 Depression Total Score: 7 09/12/2014 2:25 PM CDT documented as of this encounter Care Teams Roller Shop Utility Worker Relationship Specialty Start Date End Date Fausto Good P.A.-C. PCP - General 07/25/[address] [place] [phone] documented as of this encounter
--- OUTSIDE RECORDS SUMMARY | 2022-01-23 07:19 | XMS_ITS | Encounter Summary ---
:1965 Author Organization [facility] Address [address] [place] [address] Care Team Providers Name Role Phone Fausto Good P.A.-C. Primary Care Provider [phone] Reason for Visit Appointment Request (Routine) - Closed Specialty Diagnoses / Procedures Referred By Contact Refer red To Contact Family Medicine Diagnoses [facility] Region Procedures FAM EST LONG Referral ID Status Reason Start Date Expiration Date Visits Requ ested Visits Authorized [id number] Closed 01/19/2018 01/19/2019 1 1 Encounter Details Date Type Department Care Team Description 02/16/2018 Hospital Encounter Department of Laboratory Sofia Conroy, Medicine in [place] [address] [place] [phone] Social History Tobacco Use Types Packs/Day Years [...] do you attend christianity or Never 2021 taoism services? Do you [...] documented as of this encounter Care Teams Parts Cleaner Relationship Specialty Start Date End Date Fausto Good P.A.-C. PCP - General 07/25/16 [address] [place] [phone] documented as of this encounter
--- OUTSIDE RECORDS SUMMARY | 2022-01-23 07:19 | XMS_ITS | Encounter Summary ---
:1965 Author Organization [facility] Address [address] [place] [address] Care Team Providers Name Role Phone Fausto Good P.A.-C. Primary Care Provider [phone] Reason for Visit Appointment Request (Routine) - Closed Specialty Diagnoses / Procedures Referred By Contact Refer red To Contact Family Medicine Referral ID Status Reason Start Date Expiration Date Visits Requ ested Visits Authorized [id number] Closed 04/20/2018 04/20/2019 1 Encounter Details Date Type Department Care Team Description 04/20/2018 Hospital Encounter Department of Sofia Conroy, Hyper thyroidism Laboratory Medicine in [place], [place] [address] [phone] Social History Tobacco Use Types Packs/Day Years [...] do you attend yazidism or Never 2021 sabianism services? Do you [...] or slept in a long-term (including now)? Sex Assigned at Date Recorded [...] a day as tablet needed. methIMAzole Take 4 tablets (20 mg 270 tablet 3 01/19/2018 (TAPAZOLE) 5 mg total) by mouth daily. tablet propranolol (INDERAL) Take 0.5 tablets (10 mg 270 tablet 3 1 02/21/2017 05/04/2018 20 mg tablet total) by mouth every 8 (eight) hours. documented as of this encounter Plan of Treatment Scheduled Orders Name Type Priority Associated Diagnoses Order S chedule Kit Collection Lab Routine Hyperthyroidism Once for 1 Occurrences starting 04/20/2018 unti l 04/20/2018 documented as of this encounter Visit Diagnoses Diagnosis Hyperthyroidism documented in this encounter Additional Health Concerns Assessment Noted Time PHQ-9 Depression Total Score: 7 09/12/2014 2:25 PM CDT documented as of this encounter Care Teams Concrete Conveyor Operator Relationship Specialty Start Date End Date Fausto Good P.A.-C. PCP - General 07/25/[address] [place] [phone] documented as of this encounter
--- OUTSIDE RECORDS SUMMARY | 2022-01-23 07:19 | XMS_ITS | Encounter Summary ---
:1965 Author Organization [facility] Address [address] [place] [address] Care Team Providers Name Role Phone Fausto Good P.A.-C. Primary Care Provider [phone] Reason for Referral Outpatient (Routine) - Closed Specialty Diagnoses / Procedures Referred By Contact Refer red To Contact Endocrinology Diagnoses Hyperthyroidism Sofia Conroy M.D. [facility] [address] [place] [phone] Referral ID Status Reason Start Date Expiration Date Visits Requ ested Visits Authorized [id number] Closed 04/23/2018 04/23/2019 1 1 Encounter Details Date Type Department Care Team Description 04/23/2018 Orders Only Division of Leigh Rajput Hyperthyroid ism (Primary Endocrinology in [place], [place] [phone] [place] [address] (Work) [place] [phone] Social History Tobacco Use Types [...] or relatives? How often do you attend hindu or Never 2021 jew services? Do you belong to any clubs or No 02/16/2021 organizations such as hindu groups, unions, fraGeneix or athletic groups, or school groups? How [...] or slept in a fci (including now)? Sex Assigned at Date Recorded Female 10/01/2017 7:47 AM CDT documented as of this encounter Plan of Treatment Scheduled Referrals Name Type Priority Associated Diagnoses Order [facility] Endocrinology office Outpatient Routine Hyperthyroidism Expe cted: visit (clinic) Referral 05/04/2018 (Approximate), Expires: 04/23/2021 documented as of this encounter Visit Diagnoses Diagnosis Hyperthyroidism - Primary documented in this encounter Additional Health Concerns Assessment Noted Time PHQ-9 Depression Total Score: 7 09/12/2014 2:25 PM CDT documented as of this encounter Care Teams Automatic Winder Operator Relationship Specialty Start Date End Date Fausto Good P.A.-C. PCP - General 07/25/[address] [place] [phone] documented as of this encounter
[2022-01-23 07:20] LABS: Alanine Aminotransferase* 25 U/L (4-35); Alkaline Phosphatase* 97 U/L (40-150); Aspartate Amino Transferase* 27 U/L (12-35); Bilirubin Direct* 0.1 mg/dL (0.0-0.5); Bilirubin Total* 0.7 mg/dL (0.1-1.5); Blood Urea Nitrogen* 16 mg/dL (7-30); Calcium* 9.3 mg/dL (8.4-10.6); Carbon Dioxide* 26 mmol/L (20-32); Glucose* 133 mg/dL (60-115); Total Protein* 7.2 g/dL (6.0-8.3)
--- OUTSIDE RECORDS SUMMARY | 2022-01-23 07:20 | XMS_ITS | Encounter Summary ---
:1965 Author Organization [facility] Address [address] [place] [address] Care Team Providers Name Role Phone Fausto Good P.A.-C. Primary Care Provider [phone] Reason for Visit Reason Comments Thyroid Problem Outpatient (Routine) - Closed Specialty Diagnoses / Procedures Referred By Contact Refer red To Contact Endocrinology Diagnoses na Sofia Conroy M.D. [facility] [address] [place], [place] [phone] Referral ID Status Reason Start Date Expiration Date Visits Requ ested Visits Authorized [id number] Closed 10/28/2017 10/28/2018 1 1 Encounter Details Date Type Department Care Team Description 12/22/2017 Office Visit Division of Rocco Conroy (Primary Endocrinology in [place]) [place], [place] [address] [facility] [address] [place] [phone] Social History Tobacco Use Types Packs/Day Years [...] do you attend jewish or Never 2021 adventism services? Do you belong to any clubs or No 02/16/2021 organizations such as jewish groups, unions, [employer] or athletic groups, or school groups? How [...] Sign Reading Time Taken Comments Blood Pressure 140/79 12/22/2017 2:05 PM FORENSIC EXAMINER average Pulse 75 12/22/2017 2:05 PM FORENSIC EXAMINER Temperature - - Respiratory Rate - - Oxygen Saturation - - Inhaled Oxygen Concentration - - Weight 71.9 kg (158 lb 8.2 oz) 12/22/2017 2:05 PM FORENSIC EXAMINER Height 158.3 cm (5' 2.32) 12/22/2017 2:05 PM FORENSIC EXAMINER Body Mass Index 28.69 12/22/2017 2:05 PM FORENSIC EXAMINER documented in this encounter Progress Notes Sofia Conroy M.D. - 12/22/2017 4:00 PM CST SUBJECTIVE CHIEF COMPLAINT/REASON FOR VISIT Followup for Graves' disease. HISTORY OF PRESENT ILLNESS The patient started on methimazole therapy. She had very good response, although she developed urticaria, and initially we recommended to discontinue methimazole, but Allergy felt that it was okay to continue, and the patient wanted to continue. She is on methimazole 15 mg a day. She has no more tremor and can sleep at night. Today, she had to wait long for the appointment, but her appointment was at4 p.m. Her liver function tests are normal. CBC was normal in November. Alkaline phosphatase is 147, which is elevated as it is in Graves' disease. The patient's free thyroxine now is at 0.9, previously3.1. TSH is still lagging at 0.01. OBJECTIVE PHYSICAL EXAMINATION General: The patient has no tremor, less anxious. Neck : Small goiter about 30 g. Vital Signs: Blood pressure 140/79. Pulse 75. Weight 71 kg. ASSESSMENT / PLAN #1 Graves' disease We will decrease methimazole to 10 mg a day. We will decrease propranolol to 10 mg 3 times a day andeventually discontinue. I would like to recheck the patient's thyroid tests in 6 weeks. As she does not want to drive here, I will mail it. She could also follow with her primary doctor in regard to this. I discussed with the patient that she might require changes in the methimazole therapy, dependingon the thyroid function tests, and usually patients are at least on treatment for 1 to 2 years. Oncethe medication is discontinued, there is a chance of relapse. I previously recommended to discontinue smoking for the patient. She had an unusual uptake for the Graves' disease, but there was some uptake also extrathyroidally. We did not pursue an ultrasound of the thyroid, as this was most due to Graves' disease, but if needed, an ultrasound will be performed down the road. Questions of the patient answered. CT CT Job ID: [id number] NSIC EXAMINER documented in this encounter Plan of Treatment Not on filedocumented as of this encounter Results AST (02/16/2018 9:13 AM FORENSIC EXAMINER) [facility] Method Time Signature Aspartate 18 8 - 43 02/17/2018 [facility] Aminotransferase U/L 10:36 AM LABORATORIES - (AST), S FORENSIC EXAMINER [facility] Specimen Anatomical Collection Method Collection Time Receive d Time (Source) Location / / Volume Laterality Blood (Blood, 02/16/2018 9:13 AM 02/17/19 19 9:26 Venous) FORENSIC EXAMINER AM FORENSIC EXAMINER Resulting Agency Comment Mailed In Specimen Sofia Conroy M.D. LAB BLOOD ADD-ON Performing Organization Address City/[facility]/ZIP Code Phon e Number [facility] - [address] [place] [phone] [facility] (ABNORMAL) Alkaline Phosphatase (02/16/2018 9:13 AM FORENSIC EXAMINER) [facility] gist Method Time Signature Alkaline 132 (H) 35 - 104 02/17/2018 [facility] Phosphatase, S U/L 10:36 AM FORENSIC EXAMINER LAB[facility]ATOR[facility] Specimen Anatomical Collection Method Collection Time Receive d Time (Source) Location / / Volume Laterality Blood (Blood, 02/16/2018 9:13 AM 02/17/19 9:26 Venous) FORENSIC EXAMINER AM FORENSIC EXAMINER Resulting Agency Comment Mailed In Specimen Sofia Conroy M.D. LAB BLOOD ADD-ON Performing Organization Address [facility]/[place]IP [facility] [place] [facility] - [address] [place] [phone] [facility] (ABNORMAL) S-TSH (Thyroid-Stimulating Hormone - Sensitive) (02/16/2018 9:13 AM FORENSIC EXAMINER) [facility] gist Method Time Signature TSH, Sensitive 0.02 (L) 0.3 - 4.2 02/17/2018 [facility] mIU/L 10:36 AM FORENSIC EXAMINER [facility] Specimen Anatomical Collection Method Collection Time Receive d Time (Source) Location / / Volume Laterality Blood (Blood, 02/16/2018 9:13 AM 02/17/19 9:26 Venous) FORENSIC EXAMINER AM FORENSIC EXAMINER Resulting Agency Comment Mailed In Specimen Sofia Conroy M.D. LAB BLOOD ADD-ON Performing Organization Address City/[facility]/ZIP Code Phon e Number [facility] LABORATORIES - [address] [place] [phone] [facility] T4 (Thyroxine), Free (02/16/2018 9:13 AM FORENSIC EXAMINER) P athologist Signature T4 0.9 0.9 - 1.7 02/17/2018 [facility] (Thyroxine), ng/dL 10:36 AM FORENSIC EXAMINER LABORATORIES [facility], S [facility] Specimen Anatomical Collection Method Collection Time Receive d Time (Source) Location / / Volume Laterality Blood (Blood, 02/16/2018 9:13 AM 02/17/19 19 9:26 Venous) FORENSIC EXAMINER AM FORENSIC EXAMINER Resulting Agency Comment Mailed In Specimen Sofia Conroy M.D. LAB BLOOD ADD-ON Performing Organization Address City/State/ZIP Code Phon e Number [facility] LABORATORIES - [address] [place], [place] [address] [facility]) documented in this encounter Visit Diagnoses Diagnosis Hyperthyroidism - Primary documented in this encounter Additional Health Concerns Assessment Noted Time PHQ-9 Depression Total Score: 7 09/12/2014 2:25 PM CDT documented as of this encounter Care Teams Genetics Teacher Relationship Specialty Start Date End Date Fausto Good P.A.-C. PCP - General 07/25/16 [address] [place] [phone] documented as of this encounter
--- OUTSIDE RECORDS SUMMARY | 2022-01-23 07:20 | XMS_ITS | Encounter Summary ---
:1965 Author Organization [facility] Address [address] [place] [address] Care Team Providers Name Role Phone Fausto Good P.A.-C. Primary Care Provider [phone] Reason for Visit Outpatient (Routine) - Closed Specialty Diagnoses / Procedures Referred By Contact Refer red To Contact Allergy and Immunology Diagnoses Sofia Weller M.D. [facility] [address] [place] [phone] Referral ID Status Reason Start Date Expiration Date Visits Requ ested Visits Authorized [id number] Closed 11/10/2017 11/10/2018 1 1 Encounter Details Date Type Department Care Team Description 11/11/2017 Comprehensive Visit Division of Allergic Sofia Rivera M.D. [address] [place] [phone] Urticaria Acute (Primary Dx); Diseases in Fernanda Wang M.D. [address] [place] [phone] [place], [place] [address] [place] [phone] Social History Tobacco Use Types Packs/Day [...] or relatives? How often do you attend zoroastrianism or Never 2021 hindu services? Do you belong to any clubs or No 02/16/2021 organizations such as zoroastrianism groups, unions, fraOOHLALA [employer] or athletic groups, or school groups? How [...] a [place] [facility] (including now)? Sex Assigned at Date Recorded Female 10/01/2017 7:47 AM CDT documented as of this encounter Consult Notes Arlene Appiah M.D. - 11/11/2017 2:30 PM CDT CHIEF COMPLAINT/REASON FOR VISIT No chief complaint on file. HISTORY OF PRESENT ILLNESS Hannah Kahn is a 52 y.o. female with a past medical history significant for recently diagnosed Graves hyperthyroidism who presents for evaluation of acute urticaria. Patient was recently diagnosed in September with Graves disease secondary to insomnia and 40 pound weight loss. She was started on methimazole and propranolol. During methimazole dose de-escalation, the patient experienced sudden onset acute urticaria 2 weeks ago (10/30/17). She did not have angioedema. She tried Benadryl which did not help. She last had an episode of urticaria 3 days ago and her episodes last for a few hours or up to 5 days. She denies bruising and fevers. She endorses itching, even when she does not have hives. REVIEW OF SYSTEMS All systems were reviewed and negative or non-contributory outside of items mentioned in the HPI. VITAL SIGNS There were no vitals taken for this visit. PHYSICAL EXAMINATION General: Alert, oriented, in no apparent distress HEENT: moist mucous membranes, no oral lesions Thyroid: no thyromegaly, tenderness, or thyroid nodularity noted Cardiac: regular rate and rhythm, no murmurs/rubs/gallops Respiratory: lungs clear to auscultation bilaterally, no wheezing/rhonchi/rales Extremities: no peripheral edema or pretibial edema Skin: no rashes, scattered scratches on extensor surfaces Neuro: no focal motor or sensory deficits appreciated, CN II-XII intact Current Outpatient Prescriptions: ??? methylPREDNISolone (MEDROL DOSEPACK) 4 mg tablet, Follow package directions., Disp: 21 tablet, Rfl: 0 ??? propranolol (INDERAL) 20 mg tablet, Take 1 tablet (20 mg total) by mouth every 8 (eight) hours.,Disp: 90 tablet, Rfl: 1 ASSESSMENT/PLAN Hannah Kahn is a 52 y.o. female with a past medical history significant for recently diagnosed Graves hyperthyroidism who presents for evaluation of acute urticaria. #1 Urticaria Acute More than 2/3 of cases of acute urticaria are self-limited and resolved spontaneously. Will prescribe an antihistamine to get her through the duration of these recurring acute urticarial episodes. Lesslikely DRESS syndrome as no peripheral eosinophilia and normal renal and liver function. -Cetirizine 10 mg daily or Archana once daily (patient will buy over the counter, whichever is less expensive). -Patient will contact our office on Friday 11/17 to follow up. If no urticaria, will discuss with endocrinology about re-initiating methimazole. -If urticaria is present, consider dermatology consult for biopsy. Arlene Appiah MD Primary Care Internal Medicine, PGY1 Fernanda Wang M.D. - 11/11/2017 2:30 PM CDT I agree with the assessment of this patient by Dr. Appiah. I had the opportunity to see the patient today and agree with Dr. Appiah's assessment, history and examination. The impression, report, and plan were made and agreed to by the patient, Dr. Appiah, and myself. Please see Dr. Appiah's note for full details of our discussion. #1 Acute urticaria #2 Hyperthyroidism documented in this encounter Plan of Treatment Not on filedocumented as of this encounter Visit Diagnoses Diagnosis Urticaria Acute - Primary Hives documented in this encounter Additional Health Concerns Assessment Noted Time PHQ-9 Depression Total Score: 7 09/12/2014 2:25 PM CDT documented as of this encounter Care Teams Vaccinator Relationship Specialty Start Date End Date Fausto Good P.A.-C. PCP - General 07/25/[address] [place] [phone] documented as of this encounter
--- OUTSIDE RECORDS SUMMARY | 2022-01-23 07:20 | XMS_ITS | Encounter Summary ---
:1965 Author Organization [facility] Address [address] [place] [address] Care Team Providers Name Role Phone Fausto Good P.A.-C. Primary Care Provider [phone] Reason for Referral Outpatient (Routine) - Closed Specialty Diagnoses / Procedures Referred By Contact Refer red To Contact Endocrinology Diagnoses n/a Sofia Conroy M.D. [facility] [address] [place] [address] Referral ID Status Reason Start Date Expiration Date Visits Requ ested Visits Authorized [id number] Closed 10/01/2017 10/01/2018 1 1 utpatient (Routine) - Closed Specialty Diagnoses / Procedures Referred By Contact Refer red To Contact Diagnoses Hyperthyroidism Sofia Conroy M.D. [facility] Procedures NM Thyroid Uptake and Scan PA THYROID IMG UPTAKE SNGL/MULT HC THYROID IMG UPTAKE SNGL/MULT PA THYROID IMG UPTAKE SNGL/MULT [address] [place], [place] [address] Referral ID Status Reason Start Date Expiration Date Visits Requ ested Visits Authorized [id number] Closed 10/01/2017 10/01/2018 6 6 Reason for Visit Outpatient (Routine) - Closed Specialty Diagnoses / Referred By Contact Referred To Contact Procedures Reproductive Diagnoses Hyperthyroidism [facility] / [address] [place] [address] Referral ID Status Reason Start Date Expiration Date Visits Requ ested Visits Authorized [id number] Closed 09/26/2017 09/26/2018 1 1 Encounter Details Date Type Department Care Team Description 10/01/2017 Comprehensive Visit Division of [facility] in [place], [place] [address] [place] [phone] Social History Tobacco Use Types Packs/Day Years Used Date Smoking Tobacco: Every Day Alcohol Habits Answer Date Recorded How often [...] or relatives? How often do you attend taoism or Never 2021 lutheran services? Do you belong to any clubs or No 02/16/2021 organizations such as taoism groups, unions, fraternal or athletic groups, or [...] minutes do you engage in exercise at is 60 min 02/16/2021 level? Stress Answer [...] slept in a senior care (including now)? Sex Assigned at Date Recorded Female 10/01/2017 7:47 AM CDT documented as of this encounter Consult Notes Sofia Conroy M.D. - 10/01/2017 12:00 AM CDT SUBJECTIVE HISTORY OF PRESENT ILLNESS The patient is a 52-year-old woman who has about a 25-pound weight loss over the last 6 months. She cannot sleep very well at night, wakes up right away. She feels more jittery, weaker muscles. She hassome heat intolerance, increased perspiration. Occasionally has rapid heartbeats. No hypertension. No hair changes. She has hyperdefecation and lack of menstrual periods for the last 2 years status post tubal ligation. She has no symptoms of eye disease. No double vision. No increased tearing or photophobia. She has not had any viral illness and no pain in her neck. The patient does not take Biotene.Has not been exposed to amiodarone or contrast and does not have any other autoimmune diseases. We do not know about family history as adopted. The patient has had some mild tremor. No breast discharge. MEDICAL HISTORY Cholecystectomy. Hernia surgery. Ankle fracture. Tubular ligation. History of propranolol use, discontinued 6 months ago. OBJECTIVE DIAGNOSTICS As a part of evaluation for the insomnia, thyroid tests were obtained in 2015. TSH was normal at 1.7, currently less than 0.01 with a free thyroxine elevated at 3.1. TPO antibody positive more than 800. Creatinine normal. Liver function tests not obtained. VITAL SIGNS Blood pressure 110/72, pulse 92, height 161, weight 73 kg. PHYSICAL EXAMINATION Eyes: Extraocular muscles intact. Pupils equal, reactive to light. Not significant retraction. No proptosis, chemosis, or conjunctiva injections. ENT: Oropharynx clear and no redness. Thyroid: Thyroid diffusely enlarged, about 35 g. Heart: Regular rate and rhythm. No murmur. No rub. Lungs: Clear to auscultation. Abdomen: Soft, nontender. Extremities: No edema. Minimal fine tremor upper extremities. No hyperreflexia. ASSESSMENT / PLAN #1 Hyperthyroidism I discussed with the patient that number 1 on the differential diagnosis would be Graves' disease, less likely thyroiditis. We will need to start more tests, and I would recommend strep antibodies, liver function tests, repeat TSH, test. I would obtain a 24-hour uptake, and we will get a scan. The patient is concerned about nodularities in her thyroid. I do not feel nodularities on physicalexam, but the scan will clarify this issue, and if there are nodularities, whether they are hot; because if this, we would not recommend any biopsies. For the hyperthyroidism of any etiology, I would recommend patient use beta blockers. Propranolol was well-tolerated in past. Will do 20 mg 3 times a day to start out with. I will get a cortisol level as well. We will discuss the management of the etiology of her hyperthyroidism once we have the test available. I spent time explaining Graves' disease to the patient and provided patient educational brochures as well. The patient has seafood allergies and history of asthma, but does not need to use inhalers on a regular basis and tolerated propranolol well in the past. Job ID: [id number] documented in this encounter Plan of Treatment Scheduled Referrals Name Type Priority Associated Order Schedule Diagnoses Endocrinology office Outpatient Referral Routine Expected: visit (clinic) 10/01/2017 (Approximate), Expires: 10/01/2020 documented as of this encounter Results NM Thyroid Uptake and Scan (10/09/2017 7:13 AM CDT) Anatomical Region Laterality Modality Neck, Nuclear Medicine RST LOS N/A Nuclear M edicine Specimen (Source) Anatomical Collection Method Collection Time Re ceived Time Location / / Volume Laterality 10/09/2017 7:16 AM CDT Impressions 10/09/2017 9:55 AM CDT IMPRESSION: ?? 1. ??Homogeneously increased radioiodine uptake throughout the thyroid gland. Findings are compatible with a diagnosis of Graves' disease. 2. ??No nodules identified. 3. ??Faint uptake adjacent to the inferi or pole of the left lobe of the thyroid. This is nonspecific and could represent skin contamination, ectopic thyroid tissue, or less likely, thyroid tissue s eparated from the gland by a large photopenic cyst. ??Correlation with brainerde red thyroid ultrasound will be helpful. Narrative 10/09/2017 9:55 AM CDT EXAM: ??NM THYROID UPTAKE AND SCAN RADIOPHARMACEUTICAL/MEDS: Route: oral sodium iodide I 123 oral solution < 1 mi llicurie (SODIUM IODIDE I-123),958 MICROCURIE TECHNIQUE: Multiple projection planar im ages of the thyroid were obtained at 4 hours after oral administration of radio tracer with thyroid uptake measurements at 4 hours and 24 hours using a gamma ca nona. COMPARISON: ??None available INDICATION: ??Hyperthyroidism FINDINGS: Homogeneous iodine uptake thro ughout the thyroid gland. No focal areas of increased or decreased uptake to sugg est hyperactive or cold nodules. ??Faint uptake inferior and lateral to the infer ior pole of the left lobe. THYROID UPTAKE RESULTS 5-hour = 60.9% (4-hour normal = 3-16%) 22.3-hour = 43.2% (24-hour normal = 8-29 %) Procedure Note Frantz Link M.D. - 10/09/2017Formatti ng of this note might be different from the original. EXAM: NM THYROID UPTAKE AND SCAN RADIOPHARMACEUTICAL/MEDS: Route: oral sodium iodide I 123 oral solution < 1 mi llicurie (SODIUM IODIDE I-123),958 MICROCURIE TECHNIQUE: Multiple projection planar im ages of the thyroid were obtained at 4 hours after oral administration of radio tracer with thyroid uptake measurements at 4 hours and 24 hours using a gamma ca nona. COMPARISON: None available INDICATION: Hyperthyroidism FINDINGS: Homogeneous iodine uptake thro ughout the thyroid gland. No focal areas of increased or decreased uptake to sugg est hyperactive or cold nodules. Faint uptake inferior and lateral to the infer ior pole of the left lobe. THYROID UPTAKE RESULTS 5-hour = 60.9% (4-hour normal = 3-16%) 22.3-hour = 43.2% (24-hour normal = 8-29 %) IMPRESSION: 1. Homogeneously increased radioiodine u ptake throughout the thyroid gland. Findings are compatible with a diagnosis of Graves' disease. 2. No nodules identified. 3. Faint uptake adjacent to the inferior pole of the left lobe of the thyroid. This is nonspecific and could represent skin contamination, ectopic thyroid tissue, or less likely, thyroid tissue s eparated from the gland by a large photopenic cyst. Correlation with ordere d thyroid ultrasound will be helpful. Sofia Conroy M.D. IMG NM PROCEDURES Cortisol (10/01/2017 9:28 AM CDT) P athologist Signature Cortisol AM 12 7 - 25 10/01/2017 [facility] Result mcg/dL 10:55 AM CDT LABORATORIES - [facility] Specimen Anatomical Collection Method Collection Time Receive d Time (Source) Location / / Volume Laterality Blood (Blood, 10/01/2017 9:28 AM 10/02/19 18 9:48 Venous) CDT AM CDT Sofia Conroy M.D. LAB BLOOD ADD-ON Performing Organization Address City/[facility] Phon e Number [facility] LABORATORIES - [address] [place] [phone] [facility] (ABNORMAL) Hepatic Function Panel (10/01/2017 9:28 AM CDT) Component Value Ref Test Analysis Performed At Patholo gist Range Method Time Signature Bilirubin, Total, S 0.5 <=1.2 10/01/2017 [facility] IC mg/dL 10:48 AM LABORATORIES - CDT [facility] Bilirubin, Direct, S <0.2 0.0 - 10/01/2017 [facility] [place] 0.3 10:48 AM LABORATORIES - mg/dL T [facility] Aspartate 22 8 - 43 10/01/2017 [facility] Aminotransferase U/L 10:48 AM LABORATORIES - (AST), S T [facility] Alanine 31 7 - 45 10/01/2017 [facility] Aminotransferase U/L 10:48 AM LABORATORIES - (ALT), S T [facility] Alkaline 127 (H) 39 - 100 10/01/2017 [facility] Phosphatase, S U/L 10:48 AM LABORATORIES - T [facility] Albumin, S 4.0 3.5 - 10/01/2017 [facility] 5.0 g/dL 10:48 AM LABORATORIES - T [facility] Protein, Total, S 6.8 6.3 - 10/01/2017 [facility] 7.9 g/dL 10:48 AM LABORATORIES - T [facility] Specimen Anatomical Collection Method Collection Time Receive d Time (Source) Location / / Volume Laterality Blood (Blood, 10/01/2017 9:28 AM 10/02/19 18 9:48 Venous) CDT AM CDT Sofia Conroy M.D. LAB BLOOD ADD-ON Performing Organization Address City/[facility] Code Phon e Number [facility] LABORATORIES - [address] hCG (Human Chorionic Gonadotropin), Quantitative, (10/01/2017 9:28 AM CDT) P athologist Signature HCG, 0.7 IU/L 10/01/2017 [facility] Quantitative, 10:50 AM CDT LABORATORIES - , S [facility] Comment: ----REFERENCE VALUE---- <5.0 Negative 5.0-25.0 Indeterminate >25.0 Positive Specimen Anatomical Collection Method Collection Time Receive d Time (Source) Location / / Volume Laterality Blood (Blood, 10/01/2017 9:28 AM 10/02/19 18 9:48 Venous) CDT AM CDT Sofia Conroy M.D. LAB BLOOD ADD-ON Performing Organization Address City/[facility]/ZIP Code Phon e Number [facility] LABORATORIES - [address] (ABNORMAL) S-TSH (Thyroid-Stimulating Hormone - Sensitive) (10/01/2017 9:28 AM CDT) [employer] Method Time Signature TSH, Sensitive <0.01 (L) 0.3 - 4.2 10/01/2017 [facility] mIU/L 10:48 AM CDT LABORATORIES - [facility] Specimen Anatomical Collection Method Collection Time Receive d Time (Source) Location / / Volume Laterality Blood (Blood, 10/01/2017 9:28 AM 10/02/19 18 9:48 Venous) CDT AM CDT Sofia Conroy M.D. LAB BLOOD ADD-ON Performing Organization Address City/[facility]/ZIP Code Phon e Number [facility] LABORATORIES - [address] (ABNORMAL) Thyrotropin Receptor Antibody (10/01/2017 9:28 AM CDT) [employer] Method Time Signature Thyrotropin 5.79 (H) 0.00 - 10/01/2017 [facility] Receptor Ab, S 1.75 IU/L 6:32 PM CDT [facility] Comment: ----ADDITIONAL INFORMATION---- At a decision limit [...] Location / / Volume Laterality Blood (Blood, 10/01/2017 9:28 AM 10/02/19 18 2:58 Venous) CDT PM CDT Sofia Conroy M.D. LAB BLOOD ADD-ON Performing Organization Address City/State/ZIP Code Phon e Number [facility] [address] [place] [address] [facility] documented in this encounter Visit Diagnoses Diagnosis Hyperthyroidism Hyperthyroidism documented in this encounter Additional Health Concerns Assessment Noted Time PHQ-9 Depression Total Score: 7 09/12/2014 2:25 PM CDT documented as of this encounter Care Teams Coater Smoking Pipe Relationship Specialty Start Date End Date Fausto Good P.A.-C. PCP - General 07/25/[address] [place] [phone] documented as of this encounter
--- OUTSIDE RECORDS SUMMARY | 2022-01-23 07:20 | XMS_ITS | Encounter Summary ---
:1965 Author Organization [facility] Address [address] [place] [address] Care Team Providers Name Role Phone Fausto Good P.A.-C. Primary Care Provider [phone] Encounter Details Date Type Department Care Team Description 12/22/2017 Hospital Encounter Department of Sofia Conroy, Jd thyroidism Laboratory Medicine and [facility], [address] [address] [place] [address] [place], [place] (Work) [phone] Social History Tobacco Use Types Packs/Day Years [...] do you attend amish or Never 2021 evangelical services? Do you belong to any clubs [...] or slept in a detention (including now)? Sex Assigned at Date Recorded Female 10/01/2017 7:47 AM CDT documented as of this encounter Medications at Time of Discharge Medication Sig Dispensed Refills Start Date End Date methIMAzole (TAPAZOLE) 5 Take 2 tablets (10 270 tablet 3 01/201801/19/2018 mg tablet mg total) by mouth daily. propranolol (INDERAL) 20 Take 0.5 tablets (10 270 tablet 3 1 02/21/2017 05/04/2018 mg tablet mg total) by mouth every 8 (eight) hours. documented as of this encounter Plan of Treatment Not on filedocumented as of this encounter Procedures Procedure Name Priority Date/Time Associated Diagnosis Comme nts HEPATIC FUNCTION Routine 12/22/2017 8:50 AM Hyperthyroidism Re sults for this PANEL, S BLOOD SPLATTER ANALYST procedure are i n the results section. THYROID-STIMULATING Routine 12/22/2017 8:50 AM Hyperthyroidism Results for this HORMONE-SENSITIVE BLOOD SPLATTER ANALYST procedure are in (S-TSH) the results section. T4 (THYROXINE), Routine 12/22/2017 8:50 AM Hyperthyroidism Res ults for this FREE, S BLOOD SPLATTER ANALYST procedure are i n the results section. CREATININE WITH Routine 12/22/2017 8:50 AM Hyperthyroidism Res ults for this EGFR, S/P BLOOD SPLATTER ANALYST procedure are i n the results section. documented in this encounter Results Creatinine with Estimated GFR (12/22/2017 8:50 AM BLOOD SPLATTER ANALYST) Analysis Performed At Patho logis Time Signature Creatinine 0.67 0.59 - 12/22/2017 [facility] 1.04 mg/dL 11:23 AM BLOOD SPLATTER ANALYST LABORATORIES - [facility] eGFR-Non >90 >=60 12/22/2017 [facility] Black/ mL/min/BSA 11:23 AM BLOOD SPLATTER ANALYST LABORATORIES - [facility] Comment: ----ADDITIONAL INFORMATION---- Estimated GFR calculated using the 2009 CKD_EPI creatinine equation. eGFR-Black/ >90 >=60 mL/min/BSA 12/22/2017 11:2 3 [facility] [place] BLOOD SPLATTER ANALYST LABORATORIES [facility] Comment: ----ADDITIONAL INFORMATION---- Estimated GFR calculated using the 2009 CKD_EPI creatinine equation. Specimen Anatomical Collection Method Collection Time Receive d Time (Source) Location / / Volume Laterality Blood (Blood, 12/22/2017 8:50 AM 12/23/19 18 9:10 Venous) BLOOD SPLATTER ANALYST AM BLOOD SPLATTER ANALYST Sofia Conroy M.D. LAB BLOOD ADD-ON Performing Organization Address City/State/ZIP Code Phon e Number [facility] LABORATORIES - [address] [place], [place] [address] [facility] (ABNORMAL) Hepatic Function Panel (12/22/2017 8:50 AM BLOOD SPLATTER ANALYST) Component Value Ref Test Analysis Performed At [facility] gist Range Method Time Signature Bilirubin, Total, S 0.3 <=1.2 12/22/2017 [facility] IC mg/dL 11:23 AM LABORATORIES - [facility] Bilirubin, Direct, S <0.2 0.0 - 12/22/2017 [facility] [place] 0.3 11:23 AM LABORATORIES - mg/dL [facility] Aspartate 26 8 - 43 12/22/2017 [facility] Aminotransferase U/L 11:23 AM LABORATORIES - (AST), S [facility] Alanine 36 7 - 45 12/22/2017 [facility] Aminotransferase U/L 11:23 AM LABORATORIES - (ALT), S [facility] Alkaline 147 (H) 35 - 104 12/22/2017 [facility] Phosphatase, S U/L 11:23 AM LABORATORIES - [facility] Albumin, S 4.1 3.5 - 12/22/2017 [facility] 5.0 g/dL 11:23 AM LABORATORIES - [facility] Protein, Total, S 7.0 6.3 - 12/22/2017 [facility] 7.9 g/dL 11:23 AM LABORATORIES - [facility] Specimen Anatomical Collection Method Collection Time Receive d Time (Source) Location / / Volume Laterality Blood (Blood, 12/22/2017 8:50 AM 12/23/19 18 9:10 Venous) BLOOD SPLATTER ANALYST AM BLOOD SPLATTER ANALYST Sofia Conroy M.D. LAB BLOOD ADD-ON Performing Organization Address City/[facility]/ZIP Code Phon e Number [facility] LABORATORIES - [address] [place] [phone] [facility] (ABNORMAL) S-TSH (Thyroid-Stimulating Hormone - Sensitive) (12/22/2017 8:50 AM BLOOD SPLATTER ANALYST) Patholo gist Method Time Signature TSH, Sensitive <0.01 (L) 0.3 - 4.2 12/22/2017 [facility] mIU/L 11:23 AM BLOOD SPLATTER ANALYST LABORATORIES - [facility] Specimen Anatomical Collection Method Collection Time Receive d Time (Source) Location / / Volume Laterality Blood (Blood, 12/22/2017 8:50 AM 12/23/19 18 9:10 Venous) BLOOD SPLATTER ANALYST AM BLOOD SPLATTER ANALYST Sofia Conroy M.D. LAB BLOOD ADD-ON Performing Organization Address City/[facility]/ZIP Code Phon e Number [facility] LABORATORIES - [address] [place] [address] [facility] T4 (Thyroxine), Free (12/22/2017 8:50 AM BLOOD SPLATTER ANALYST) P athologist Signature T4 0.9 0.9 - 1.7 12/22/2017 [facility] (Thyroxine), ng/dL 11:23 AM BLOOD SPLATTER ANALYST LABORATORIES - [facility], [facility] Specimen Anatomical Collection Method Collection Time Receive d Time (Source) Location / / Volume Laterality Blood (Blood, 12/22/2017 8:50 AM 12/23/19 18 9:10 Venous) BLOOD SPLATTER ANALYST AM BLOOD SPLATTER ANALYST Sofia Conroy M.D. LAB BLOOD ADD-ON Performing Organization Address City/[facility]/ZIP Code Phon e Number [facility] LABORATORIES - [address] [place] [phone] [facility] documented in this encounter Visit Diagnoses Diagnosis Hyperthyroidism documented in this encounter Additional Health Concerns Assessment Noted Time PHQ-9 Depression Total Score: 7 09/12/2014 2:25 PM CDT documented as of this encounter Care Teams [place] Inspector Relationship Specialty Start Date End Date Fausto Good P.A.-C. PCP - General 07/25/16 [address] [place] [phone] documented as of this encounter
--- OUTSIDE RECORDS SUMMARY | 2022-01-23 07:20 | XMS_ITS | Encounter Summary ---
:1965 Author Organization [facility] Address [address] [place] [address] Care Team Providers Name Role Phone Fausto Good P.A.-C. Primary Care Provider [phone] Reason for Referral Outpatient (Routine) - Closed Specialty Diagnoses / Procedures Referred By Contact Refer red To Contact Endocrinology Diagnoses Sofia Khan M.D. [address] [phone] Referral ID Status Reason Start Date Expiration Date Visits Requ ested Visits Authorized [id number] Closed 10/28/2017 10/28/2018 1 1 Reason for Visit Outpatient (Routine) - Closed Specialty Diagnoses / Procedures Referred By Contact Weston red To Contact Endocrinology Diagnoses Sofia Khan M.D. [address] [phone] Referral ID Status Reason Start Date Expiration Date Visits Requ ested Visits Authorized [id number] Closed 10/09/2017 10/09/2018 1 1 Encounter Details Date Type Department Care Team Description 10/28/2017 Office Visit Division of Rocco Conroy (Primary Endocrinology in [place]) [place], [place] [address] [facility] [address] [place] [phone] Social History Tobacco Use Types Packs/Day Years Used Date Smoking Tobacco: Every Day Cigarettes 0.5 35 S tarted: 02/10/1982 E-cigarettes Alcohol Use Standard Drinks/Week Comments Yes 0 [...] or relatives? How often do you attend mu-ism or Never 2021 latter day services? Do you belong to any clubs or No 02/16/2021 organizations such as mu-ism groups, unions, [employer] or athletic groups, or school groups? How [...] encounter Progress Notes Sofia Conroy M.D. - 10/28/2017 12:00 AM CDT SUBJECTIVE CHIEF COMPLAINT/REASON FOR VISIT Followup visit 3. Graves disease. ASSESSMENT / PLAN The patient comes back for followup for Graves disease. She has been treated with methimazole 30 mg daily in addition to propranolol 20 mg 3 times a day for at least 2.5 weeks. She sleeps better. She has no tremor, and anxiety has decreased. The patient has occasionally a sensation of fullness in her chest, but no pain, and she has no nausea. The patient has no eye symptoms. The blood tests were doneas general labs, and no thyroid test was obtained today despite the order placed previously. We havea normal AST, and calcium has normalized. At this point I would recommend to add on free thyroxine levels, decrease methimazole to 20 mg for now pending the thyroxine level and continue propranolol. I would like to see the patient back in 6 weeks. Her weight has stabilized. She is not losing any more. The patient was educated that she might need to stay on methimazole, although fluctuating dosages for 18 to 24 months. I asked her to discontinue smoking, and we would be happy [facility] which will decrease the risk of Graves ophthalmopathy. The patient was also advised to use artificial eye drops and perhaps elevate the head of bed. She does not have signs of ophthalmopathy at this point, though. CT CT Job ID: [id number]/[id number] documented in this encounter Plan of Treatment Scheduled Referrals Name Type Priority Associated Order Schedule Diagnoses Endocrinology office Outpatient Referral Routine Expected: visit (clinic) 12/12/2017 (Approximate), Expires: 10/28/2020 documented as of this encounter Results T4 (Thyroxine), Free (12/22/2017 8:50 AM UNDERGRADUATE INTERN) athologist Signature T4 0.9 0.9 - 1.7 12/22/2017 [facility] (Thyroxine), ng/dL 11:23 AM UNDERGRADUATE INTERN LABORATORIES - Free, S [facility] Specimen Anatomical Collection Method Collection Time Receive d Time (Source) Location / / Volume Laterality Blood (Blood, 12/22/2017 8:50 AM 12/23/19 9:10 Venous) UNDERGRADUATE INTERN AM UNDERGRADUATE INTERN Sofia Conroy M.D. LAB BLOOD ADD-ON Performing Organization Address City/State/ZIP Code Phon e Number [facility] LABORATORIES - [address] [place] [address] 05 [facility] T4 (Thyroxine), Free (10/28/2017 8:52 AM CDT) athologist Signature T4 1.7 0.9 - 1.7 10/28/2017 [facility] (Thyroxine), ng/dL 11:45 AM CDT LABORATORIES - Free, S [facility] Specimen Anatomical Collection Method Collection Time Receive d Time (Source) Location / / Volume Laterality Blood (Blood, 10/28/2017 8:52 AM 10/29/19 18 Venous) CDT 11:17 AM CDT Sofia Conroy M.D. LAB BLOOD ADD-ON Performing Organization Address City/State/ZIP Code Phon e Number [facility] LABORATORIES - [address] [place], [place] [address] [facility] documented in this encounter Visit Diagnoses Diagnosis Hyperthyroidism - Primary documented in this encounter Additional Health Concerns Assessment Noted Time PHQ-9 Depression Total Score: 7 09/12/2014 2:25 PM CDT documented as of this encounter Care Teams Senior Php Web Developer Relationship Specialty Start Date End Date Fausto Good P.A.-C. PCP - General 07/25/[address] [place] [phone] documented as of this encounter
--- OUTSIDE RECORDS SUMMARY | 2022-01-23 07:20 | XMS_ITS | Encounter Summary ---
:1965 Author Organization [facility] Address [address] [place] [address] Care Team Providers Name Role Phone Fausto Good P.A.-C. Primary Care Provider [phone] Encounter Details Date Type Department Care Team Description 11/11/2017 Hospital Encounter Department of Laboratory Sofia Conroy Hives Medicine and Pathology, [address] [place] [phone] [place] [address] [phone] Social History Tobacco Use Types Packs/Day Years [...] do you attend synagogue or Never 2021 sikh services? Do you [...] Sig Dispensed Refills Start Date End Date methylPREDNISolone (MEDROL Follow package 21 tablet 0 11/0511/12/2017 DOSEPACK) 4 mg tablet directions. propranolol (INDERAL) 20 mg Take 1 tablet (20 90 tablet 1 0 10/01/2017 12/08/2017 tablet mg total) by mouth every 8 (eight) hours. documented as of this encounter Plan of Treatment Not on filedocumented as of this encounter Procedures Procedure Name Priority Date/Time Associated Diagnosis Comme nts CBC WITH Routine 11/11/2017 12:13 PM Hives Results for this DIFFERENTIAL, B CDT procedure ar e in the results section. documented in this encounter Results (ABNORMAL) CBC with Differential (11/11/2017 12:13 PM CDT) [facility] Method Time Signature Hemoglobin 13.6 11.6 - 11/11/2017 [facility] 15.0 g/dL 12:44 PM CDT [facility]ATOR[facility] - [facility] Hematocrit 41.6 35.5 - 11/11/2017 [facility] 44.9 % 12:44 PM CDT [facility] Erythrocytes 4.84 3.92 - 11/11/2017 [facility] 5.13 12:44 PM CDT LABORATORIES - x10(12)/L [facility] MCV 86.0 78.2 - 11/11/2017 [facility] 97.9 fL 12:44 PM CDT LABORATORIES [facility] RBC Distrib 12.0 (L) 12.2 - 11/11/2017 [facility] Width 16.1 % 12:44 PM CDT [facility] - [facility] Platelet Count 272 157 - 371 11/11/2017 [facility] x10(9)/L 12:44 PM CDT [facility] Leukocytes 7.6 3.4 - 9.6 11/11/2017 [facility] x10(9)/L 12:44 PM CDT [facility] Neutrophils 4.46 1.56 - 11/11/2017 [facility] 6.45 12:44 PM CDT LABORATORIES - x10(9)/L [facility] Lymphocytes 2.19 0.95 - 11/11/2017 [facility] 3.07 12:44 PM CDT LABORATORIES - x10(9)/L [facility] Monocytes 0.68 0.26 - 11/11/2017 [facility] 0.81 12:44 PM CDT LABORATORIES - x10(9)/L [facility] Eosinophils 0.23 0.03 - 11/11/2017 [facility] 0.48 12:44 PM CDT LABORATORIES - x10(9)/L [facility] Basophils 0.04 0.01 - 11/11/2017 [facility] 0.08 12:44 PM CDT LABORATORIES - x10(9)/L [facility] Specimen Anatomical Collection Method Collection Time Receive d Time (Source) Location / / Volume Laterality Blood (Blood, 11/11/2017 12:13 11/11/2017 Venous) PM CDT 12:40 PM CDT Sofia Conroy M.D. LAB BLOOD ADD-ON Performing Organization Address City/State/ZIP Code Phon e Number [facility] LAB[facility]ATORIES - [address] [place] [address] [facility] documented in this encounter Visit Diagnoses Diagnosis Hives documented in this encounter Additional Health Concerns Assessment Noted Time PHQ-9 Depression Total Score: 7 09/12/2014 2:25 PM CDT documented as of this encounter Care Teams Bag Adjuster Relationship Specialty Start Date End Date Fausto Good P.A.-C. PCP - General 07/25/[address] [place] [phone] documented as of this encounter
--- OUTSIDE RECORDS SUMMARY | 2022-01-23 07:20 | XMS_ITS | Encounter Summary ---
:1965 Author Organization [facility] Address [address] [place] [address] Care Team Providers Name Role Phone Fausto Good P.A.-C. Primary Care Provider [phone] Reason for Referral Outpatient (Routine) - Closed Specialty Diagnoses / Procedures Referred By Contact Refer red To Contact Allergy and Immunology Diagnoses Sofia Weller M.D. [facility] [address] [place] [phone] Referral ID Status Reason Start Date Expiration Date Visits Requ ested Visits Authorized [id number] Closed 11/10/2017 11/10/2018 1 1 Reason for Visit Reason Onset Date Comments Hives 11/07/2017 Encounter Details Date Type Department Care Team Description 11/07/2017 Clinical Communication Division of Sofia Conroy Hi ves Endocrinology in [place], [place] [address] [place] [address] [place] [phone] Social History Tobacco Use Types Packs/Day Years [...] do you attend buddhist or Never 2021 alevism services? Do you [...] this encounter Miscellaneous Notes Telephone Encounter - Anu Baltazar R.N. - 11/10/2017 10:36 AM CDT Send online message Telephone Encounter - Ameena Grissom - 11/07/2017 10:54 AM CDT Patient called Reason for Calling:Hives Detailed Message:Patient was seen earlier this week and she had the hives and was taken off Methimazole for the thought of it was the cause of the hives, while she was here for a full day she was completely clear of hives. When she returned home she immediately broke out in hives. She thinks that it must be something in her house that is causing this reaction. She would like to know if she should restart her Methimazole. Her hives are over her entire body and itchy. Best time to be reached:anytime Contact patient by:phone Phone number: [phone] Thank you, Ameena documented in this encounter Plan of Treatment Scheduled Referrals Name Type Priority Associated Order Schedule Diagnoses Allergy and Outpatient Referral Routine Hives Expected : Immunology - 11/10/2017 Urticaria angioedema (Approx imate), consult (clinic) Expires: 11/10/2020 documented as of this encounter Results (ABNORMAL) CBC with Differential (11/11/2017 12:13 PM CDT) [facility] Method Time Signature Hemoglobin 13.6 11.6 - 11/11/2017 [facility] 15.0 g/dL 12:44 PM CDT [facility] Hematocrit 41.6 35.5 - 11/11/2017 [facility] 44.9 % 12:44 PM CDT [facility] Erythrocytes 4.84 3.92 - 11/11/2017 [facility] 5.13 12:44 PM CDT LABORATORIES - x10(12)/L [facility] MCV 86.0 78.2 - 11/11/2017 [facility] 97.9 fL 12:44 PM CDT [facility] RBC Distrib 12.0 (L) 12.2 - 11/11/2017 [facility] Width 16.1 % 12:44 PM CDT [facility] Platelet Count 272 157 - 371 11/11/2017 [facility] x10(9)/L 12:44 PM CDT [facility] Leukocytes 7.6 3.4 - 9.6 11/11/2017 [facility] x10(9)/L 12:44 PM CDT [facility] Neutrophils 4.46 1.56 - 11/11/2017 [facility] 6.45 12:44 PM CDT LABORATORIES - x10(9)/L [facility] Lymphocytes 2.19 0.95 - 11/11/2017 [facility] 3.07 12:44 PM CDT LABORATORIES - x10(9)/L [facility] Monocytes 0.68 0.26 - 11/11/2017 [facility] 0.81 12:44 PM CDT LABORATORIES - x10(9)/L [facility] Eosinophils 0.23 0.03 - 11/11/2017 [facility] 0.48 12:44 PM CDT LABORATORIES - x10(9)/L [facility] Basophils 0.04 0.01 - 11/11/2017 [facility] 0.08 12:44 PM CDT LABORATORIES - x10(9)/L [facility] Specimen Anatomical Collection Method Collection Time Receive d Time (Source) Location / / Volume Laterality Blood (Blood, 11/11/2017 12:13 11/11/2017 Venous) PM CDT 12:40 PM CDT Sofia Conroy M.D. LAB BLOOD ADD-ON Performing Organization Address City/State/ZIP Code Phon e Number [facility] LAB[facility]ATORIES - [address] [place] [address] 05 [facility] documented in this encounter Visit Diagnoses Diagnosis Hives - Primary Angioedema Acquired Personal History Urticaria documented in this encounter Additional Health Concerns Assessment Noted Time PHQ-9 Depression Total Score: 7 09/12/2014 2:25 PM CDT documented as of this encounter Care Teams Credit Reporter Relationship Specialty Start Date End Date Fausto Good P.A.-C. PCP - General 07/25/16 [address] [place] [phone] documented as of this encounter
--- OUTSIDE RECORDS SUMMARY | 2022-01-23 07:20 | XMS_ITS | Encounter Summary ---
:1965 Author Organization [facility] Address [address] [place] [address] Care Team Providers Name Role Phone Fausto Good P.A.-C. Primary Care Provider [phone] Reason for Visit Reason Comments Med Refill Encounter Details Date Type Department Care Team Description 12/08/2017 Refill Division of Endocrinology in Sofia Dudley M.D. Med Refill [place], [place] [address] [place] [address] [address] [place] [phone] (Wo rk) Social History Tobacco Use Types [...] do you attend islam or Never 2021 samaritan services? Do you [...] documented as of this encounter Care Teams Resolute Professional Relationship Specialty Start Date End Date Fausto Good P.A.-C. PCP - General 07/25/[address] [place] [phone] documented as of this encounter
--- OUTSIDE RECORDS SUMMARY | 2022-01-23 07:20 | XMS_ITS | Encounter Summary ---
:1965 Author Organization [facility] Address [address] [place] [address] Care Team Providers Name Role Phone Fausto Good P.A.-C. Primary Care Provider [phone] Encounter Details Date Type Department Care Team Description 10/01/2017 Hospital Encounter Department of Sofia Conroy, Jd thyroidism Laboratory Medicine and M.DFarzana Pathology, [address] [phone] [place] [address] [place], [place] (Work) [phone] Social History Tobacco Use Types Packs/Day Years [...] or relatives? How often do you attend evangelical or Never 2021 confucianist services? Do you belong to any clubs or No 02/16/2021 organizations such as evangelical groups, unions, fraternal or athletic groups, or [...] Sig Dispensed Refills Start Date End Date propranolol (INDERAL) 20 Take 1 tablet (20 mg 90 tablet 1 0 10/01/2017 12/08/2017 mg tablet total) by mouth every 8 (eight) hours. documented as of this encounter Plan of Treatment Not on filedocumented as of this encounter Procedures Procedure Name Priority Date/Time Associated Diagnosis Comme nts HEPATIC FUNCTION Routine 10/01/2017 9:28 Hyperthyroidism Resul ts for this PANEL, S AM CDT procedure are i n the results section. THYROTROPIN RECEPTOR Routine 10/01/2017 9:28 Hyperthyroidism R esults for this AB, S AM CDT procedure are i n the results section. HUMAN CHORIONIC Routine 10/01/2017 9:28 Hyperthyroidism Result s for this GONADOTROPIN (HCG), AM CDT procedur e are in MYRA, the results section. THYROID-STIMULATING Routine 10/01/2017 9:28 Hyperthyroidism Re sults for this HORMONE-SENSITIVE AM CDT procedure are in (S-TSH) the results section. CORTISOL, S Routine 10/01/2017 9:28 Hyperthyroidism Results f or this AM CDT procedure are i n the results section. documented in this encounter Results Cortisol (10/01/2017 9:28 AM CDT) P athologist Signature Cortisol AM 12 7 - 25 10/01/2017 [facility] Result mcg/dL 10:55 AM CDT LABORATORIES - [facility] Specimen Anatomical Collection Method Collection Time Receive d Time (Source) Location / / Volume Laterality Blood (Blood, 10/01/2017 9:28 AM 10/02/19 18 9:48 Venous) CDT AM CDT Sofia Conroy M.D. LAB BLOOD ADD-ON Performing Organization Address City/State/ZIP Code Phon e Number [facility]ATORIES - [address] [place] [address] [facility] (ABNORMAL) Hepatic Function Panel (10/01/2017 9:28 AM CDT) Component Value Ref Test Analysis Performed At Patholo gist Range Method Time Signature Bilirubin, Total, S 0.5 <=1.2 10/01/2017 [facility] mg/dL 10:48 AM LABORATORIES - T [facility] Bilirubin, Direct, S <0.2 0.0 - 10/01/2017 [facility] 0.3 10:48 AM LABORATORIES - mg/dL CDT [facility] Aspartate 22 8 - 43 10/01/2017 [facility] Aminotransferase U/L 10:48 AM LABORATORIES - (AST), S [facility] Alanine 31 7 - 45 10/01/2017 [facility] Aminotransferase U/L 10:48 AM LABORATORIES - (ALT), S [facility] Alkaline 127 (H) 39 - 100 10/01/2017 [facility] Phosphatase, S U/L 10:48 AM LABORATORIES - [facility] Albumin, S 4.0 3.5 - 10/01/2017 [facility] 5.0 g/dL 10:48 AM LABORATORIES - T [facility] Protein, Total, S 6.8 6.3 - 10/01/2017 [facility] 7.9 g/dL 10:48 AM LABORATORIES - T [facility] Specimen Anatomical Collection Method Collection Time Receive d Time (Source) Location / / Volume Laterality Blood (Blood, 10/01/2017 9:28 AM 10/02/19 18 9:48 Venous) CDT AM CDT Sofia Conroy M.D. LAB BLOOD ADD-ON Performing Organization Address City/State/ZIP Code Phon e Number [facility]IES - [address] [place] [address] [facility] hCG (Human Chorionic Gonadotropin), Quantitative, (10/01/2017 9:28 AM CDT) P athologist Signature HCG, 0.7 IU/L 10/01/2017 [facility] Quantitative, 10:50 AM CDT LABORATORIES - , S [facility] Comment: ----REFERENCE VALUE---- <5.0 Negative 5.0-25.0 Indeterminate >25.0 Positive Specimen Anatomical Collection Method Collection Time Receive d Time (Source) Location / / Volume Laterality Blood (Blood, 10/01/2017 9:28 AM 10/02/19 18 9:48 Venous) CDT AM CDT Sofia Conroy M.D. LAB BLOOD ADD-ON Performing Organization Address City/[facility] Code Phon e Number [facility]IES - [address] [place] [address] [facility] (ABNORMAL) S-TSH (Thyroid-Stimulating Hormone - Sensitive) (10/01/2017 9:28 AM CDT) [facility] Method Time Signature TSH, Sensitive <0.01 (L) 0.3 - 4.2 10/01/2017 [facility] mIU/L 10:48 AM CDT LABORATORIES - [facility] Specimen Anatomical Collection Method Collection Time Receive d Time (Source) Location / / Volume Laterality Blood (Blood, 10/01/2017 9:28 AM 10/02/19 18 9:48 Venous) CDT AM CDT Sofia Conroy M.D. LAB BLOOD ADD-ON Performing Organization Address [facility] Phon e Number [facility] - [address] [place] [address] [facility] (ABNORMAL) Thyrotropin Receptor Antibody (10/01/2017 9:28 AM CDT) [facility] [employer] Method Time Signature Thyrotropin 5.79 (H) 0.00 - 10/01/2017 [facility] Receptor Ab, S 1.75 IU/L 6:32 PM CDT [facility] Comment: ----ADDITIONAL INFORMATION---- At a decision limit [...] M.D. LAB BLOOD ADD-ON Performing Organization Address City/[facility]/ZIP Code Phon e Number [facility] [address] [place] [address] [facility] documented in this encounter Visit Diagnoses Diagnosis Hyperthyroidism documented in this encounter Additional Health Concerns Assessment Noted Time PHQ-9 Depression Total Score: 7 09/12/2014 2:25 PM CDT documented as of this encounter Care Teams Benefit Specialist Relationship Specialty Start Date End Date Fausto Good P.A.-C. PCP - General 07/25/[address] [place] [phone] documented as of this encounter
--- OUTSIDE RECORDS SUMMARY | 2022-01-23 07:20 | XMS_ITS | Encounter Summary ---
:1965 Author Organization [facility] Address [address] [place] [address] Care Team Providers Name Role Phone Fausto Good P.A.-C. Primary Care Provider [phone] Reason for Visit Outpatient (Routine) - Closed Specialty Diagnoses / Procedures Referred By Contact Refer red To Contact Diagnoses Hyperthyroidism Sofia Conroy M.D. [facility] Procedures [place] Thyroid Uptake and Scan [place] THYROID IMG UPTAKE SNGL/MULT HC THYROID IMG UPTAKE SNGL/MULT [place] THYROID IMG UPTAKE SNGL/MULT [address] [place] [address] Referral ID Status Reason Start Date Expiration Date Visits Requ ested Visits Authorized [id number] Closed 10/01/2017 10/01/2018 6 6 Encounter Details Date Type Department Care Team Description 10/09/2017 Hospital Encounter Department of Radiology, Sofia Conroy [facility], in M.D. [place], [place] [address] [facility] [address] [place] [phone] Social History Tobacco Use Types Packs/Day Years [...] do you attend protestant or Never 2021 oriental orthodox services? Do [...] or slept in a alf (including now)? Sex Assigned at Date Recorded Female 10/01/2017 7:47 AM CDT documented as of this encounter Medications at Time of Discharge Medication Sig Dispensed Refills Start Date End Date methIMAzole (TAPAZOLE) 10 Take 3 tablets (30 90 tablet 3 11/05/2017 mg tablet mg total) by mouth daily. propranolol (INDERAL) 20 Take 1 tablet (20 mg 90 tablet 1 0 10/01/2017 12/08/2017 mg tablet total) by mouth every 8 (eight) hours. documented as of this encounter Plan of Treatment Not on filedocumented as of this encounter Procedures Procedure Name Priority Date/Time Associated Diagnosis Comme nts NM THYROID RAD - Routine 10/09/2017 7:13 Hyperthyroidism Results for UPTAKE AND SCAN (most inpatients AM CDT this pro cedure and all are in the outpatients) results section. documented in this encounter Results NM Thyroid Uptake and [...] by a large photopenic cyst. ??Correlation with orde red thyroid ultrasound will be helpful. Narrative [...] helpful. Sofia Conroy M.D. IMG [place] PROCEDURES documented in this encounter Visit Diagnoses Not on filedocumented in this encounter Additional Health Concerns Assessment Noted Time PHQ-9 Depression Total Score: 7 09/12/2014 2:25 PM CDT documented as of this encounter Care Teams Buckram Sewer Relationship Specialty Start Date End Date Fausto Good P.A.-C. PCP - General 07/25/[address] [place] [phone] documented as of this encounter
--- OUTSIDE RECORDS SUMMARY | 2022-01-23 07:20 | XMS_ITS | Encounter Summary ---
:1965 Author Organization [facility] Address [address] [place] [address] Care Team Providers Name Role Phone Fausto Good P.A.-C. Primary Care Provider [phone] Encounter Details Date Type Department Care Team Description 09/29/2017 Abstract DATA ABSTRACTION Provider, Historical Social History Tobacco Use Types Packs/Day Years [...] do you attend hinduism or Never 2021 rastafari services? Do you [...] documented as of this encounter Care Teams Nuclear Auxiliary Operator Relationship Specialty Start Date End Date Fausto Good P.A.-C. PCP - General 07/25/[address] [place] [phone] documented as of this encounter
--- OUTSIDE RECORDS SUMMARY | 2022-01-23 07:20 | XMS_ITS | Encounter Summary ---
:1965 Author Organization [facility] Address [address] [place] [address] Care Team Providers Name Role Phone Fausto Good P.A.-C. Primary Care Provider [phone] Reason for Referral Outpatient (Routine) - Closed Specialty Diagnoses / Procedures Referred By Contact Refer red To Contact Endocrinology Diagnoses Sofia Khan M.D. [address] [phone] Referral ID Status Reason Start Date Expiration Date Visits Requ ested Visits Authorized [id number] Closed 11/03/2017 11/03/2018 1 1 Encounter Details Date Type Department Care Team Description 10/31/2017 Clinical Communication Division of [place] Wills Endocrinology in [place], MFarzanaSFarzanaNFarzana, R.N., [facility] [address] [place] [address] [place] [phone] Social History Tobacco Use Types Packs/Day Years [...] do you attend temple or Never 2021 samaritan services? Do you belong to any clubs or No 02/16/2021 organizations such as temple groups, unions, fraSomany Ceramics or athletic groups, or school groups? How [...] this encounter Miscellaneous Notes Telephone Encounter - [place] Wills R.N., CCRN - 11/03/2017 2:51 PM CDT INFORMATION DISCUSSED Ms. Kahn was contacted to relay instructions from Dr. Kessler to take photographs of her hives that she is experiencing. She was agreeable to this and denied any further questions. PLAN Disposition/Recommendation: self-care appropriate at this time . Education: patient/caller able to teach back Caller agreeable to plan of care: yes The following references were used: nursing clinical judgement and provider Dr. Kessler. Addendum Note - Sofia Kessler M.D. - 11/03/2017 11:29 AM CDT Addended by: SOFIA KESSLER on: 11/03/2017 11:29 AM Modules accepted: Orders Telephone Encounter - Dede Guy - 10/31/2017 4:[address] Kessler, Pt called today on 10/31 and mentioned she noticed hives appear above her left elbow on10/30 then it had spread to her legs, back and stomach today. She had taken some benadryl last night and today to help calm them but it did not to much. I transferred the phone call to Jesus our nurse tohelp her. Telephone Encounter - [place] Wills R.N., MARIA - 10/31/2017 4:19 PM CDT HISTORY OF PRESENT ILLNESS S: Ms. Briceño has called in with complaints of itchy hives over arms and legs. She states that she has had them since yesterday and seems to be getting progressively worse. B: Patient was seen by Dr. Kessler on Saturday 10/28. At that time, patient states she was instructedto decrease her dose of methimazole. That has been the only recent adjustment to her medication regimen. The following portions of the patient's history were reviewed and updated as appropriate: allergies and current medications. ASSESSMENT / PLAN A: Patient is currently denying chest pain, dyspnea, dizziness, or headache. She states that she hasan epi-pen, knows the signs and symptoms of allergic reactions and when to seek emergency care. She does not feel like this is an allergic reaction that she has had in the past. She does endorse takingone capsule of benedryl, twice over the last two days with little relief in symptoms. R: This ghost writer will past along assessment to Dr. Kessler for further recommendations. I reviewed when to seek emergency care. Ms. Briceño would appreciate a phone call with any recommendations. Disposition/Recommendation: self-care appropriate at this time . Education: patient/caller able to teach back Caller agreeable to plan of care: yes The following references were used: nursing clinical judgement documented in this encounter Plan of Treatment Scheduled Referrals Name Type Priority Associated Order Schedule Diagnoses Endocrinology office Outpatient Referral Routine Expected: visit (clinic) 11/05/2017 (Approximate), Expires: 11/03/2020 documented as of this encounter Visit Diagnoses Not on filedocumented in this encounter Additional Health Concerns Assessment Noted Time PHQ-9 Depression Total Score: 7 09/12/2014 2:25 PM CDT documented as of this encounter Care Teams Corporate Travel Coordinator Relationship Specialty Start Date End Date Fausto Good P.A.-C. PCP - General 07/25/[address] [place] [phone] documented as of this encounter
--- OUTSIDE RECORDS SUMMARY | 2022-01-23 07:20 | XMS_ITS | Encounter Summary ---
:1965 Author Organization [facility] Address [address] [place] [address] Care Team Providers Name Role Phone Fausto Good P.A.-C. Primary Care Provider [phone] Encounter Details Date Type Department Care Team Description 10/01/2017 Clinical Communication [facility] [address] [phone] Social History Tobacco Use Types Packs/Day Years [...] or relatives? How often do you attend sikh or Never 2021 holiness services? Do you belong to any clubs or No 02/16/2021 organizations such as sikh groups, unions, fraternal or athletic groups, or [...] or slept in a snf (including now)? Sex Assigned at Date Recorded Female 10/01/2017 7:47 AM CDT documented as of this encounter Miscellaneous Notes Telephone Encounter - Chen Ivan L.P.N. - 10/01/2017 12:07 PM CDT Notified Hannah that they do thyroid uptakes in both [place] and [place] although [place] Ross said thatalma is scheduled for a more in debt testing, twice one day and then follow up the next with more andadvised she keep her [place] appts.... Telephone Encounter - Chen Ivan L.P.N. - 10/01/2017 11:31 AM CDT [place] provider believes that Hannah may Graves disease and want to do further iodine testing...nuclear medicine thyroid dose....and she is questioning if they do that here or [place]??? Telephone Encounter - Maggie Oakes - 10/01/2017 11:23 AM CDT Patient states she was seen in [place] today per a referral Fausto sent. She would like to discussthis with him or his nurse. She states they want her to come back there a few times next week as well. Please call [phone] documented in this encounter Plan of Treatment Not on filedocumented as of this encounter Visit Diagnoses Not on filedocumented in this encounter Additional Health Concerns Assessment Noted Time PHQ-9 Depression Total Score: 7 09/12/2014 2:25 PM CDT documented as of this encounter Care Teams Logistics Solution Manager Relationship Specialty Start Date End Date Fausto Good P.A.-C. PCP - General 07/25/[address] [place] [phone] documented as of this encounter
--- OUTSIDE RECORDS SUMMARY | 2022-01-23 07:20 | XMS_ITS | Encounter Summary ---
:1965 Author Organization [facility] Address [address] [place] [address] Care Team Providers Name Role Phone Fausto Good P.A.-C. Primary Care Provider [phone] Encounter Details Date Type Department Care Team Description 11/13/2017 Clinical Communication Division of Sofia Kessler, Endocrinology in [place], [place] [address] [facility] [address] [place] [phone] Social History Tobacco Use Types Packs/Day Years [...] do you attend congregational or Never 2021 church services? Do you [...] to pay for the very basics like [employer] hat hard 02/16/2021 food, housing, medical care, [...] this encounter Miscellaneous Notes Addendum Note - Sofia Kessler M.D. - 11/19/2017 9:47 AM CDT Addended by: SOFIA KESSLER on: 11/19/2017 09:47 AM Modules accepted: Orders Addendum Note - Leigh Rajput R.N. - 11/18/2017 2:20 PM CDT Addended by: LEIGH RAJPUT on: 11/18/2017 02:20 PM Modules accepted: Orders Telephone Encounter - Leigh Rajput R.N. - 11/18/2017 2:17 PM CDT INFORMATION DISCUSSED I contacted the patient at the request of Dr. Kessler. Patient states that her hives are completelygone. She has resumed methimazole 20 mg. I relayed the message from Dr. Kessler to her that she should only take 15 mg if that is what she would prefer. Or, she can try a cousin of methimazole called PTU. Patient prefers to stay on the Methimazole. She states she need a refill of this medication. Patient has a follow up appointment with Dr. Kessler in December. Patient agrees to plan of care and has no questions. PLAN Disposition/Recommendation: self-care appropriate at this time . Education: patient/caller able to teach back Caller agreeable to plan of care: yes The following references were used: nursing clinical judgement and provider Dr. Kessler Telephone Encounter - Anu Baltazar R.N. - 11/14/2017 10:18 AM CDT INFORMATION DISCUSSED Patient denies iodine therapy. Patient will start back on Methimazole 20 mg daily as discussed with Dr. Kessler on 10/28/17. Let patient know that allergy consult was ok for her to restart methimazole. Patient had no further questions. PLAN Disposition/Recommendation: self-care appropriate at this time . Education: patient/caller able to teach back Caller agreeable to plan of care: yes The following references were used: nursing clinical judgement and provider Dr. Kessler documented in this encounter Plan of Treatment Not on filedocumented as of this encounter Visit Diagnoses Not on filedocumented in this encounter Additional Health Concerns Assessment Noted Time PHQ-9 Depression Total Score: 7 09/12/2014 2:25 PM CDT documented as of this encounter Care Teams Pan Devulcanizer Helper Relationship Specialty Start Date End Date Fausto Good P.A.-C. PCP - General 07/25/[address] [place] [phone] documented as of this encounter
--- OUTSIDE RECORDS SUMMARY | 2022-01-23 07:20 | XMS_ITS | Encounter Summary ---
:1965 Author Organization [facility] Address [address] [place] [address] Care Team Providers Name Role Phone Fausto Good P.A.-C. Primary Care Provider [phone] Reason for Referral Outpatient (Routine) - Closed Specialty Diagnoses / Procedures Referred By Contact Refer red To Contact Endocrinology Diagnoses na Sofia Conroy M.D. [facility] [address] [place] [phone] Referral ID Status Reason Start Date Expiration Date Visits Requ ested Visits Authorized [id number] Closed 10/09/2017 10/09/2018 1 1 Reason for Visit Outpatient (Routine) - Closed Specialty Diagnoses / Procedures Referred By Contact [place] red To Contact Endocrinology Diagnoses n/a Sofia Conroy M.D. [address] [phone] Referral ID Status Reason Start Date Expiration Date Visits Requ ested Visits Authorized [id number] Closed 10/01/2017 10/01/2018 1 1 Encounter Details Date Type Department Care Team Description 10/09/2017 Office Visit Division of Rocco Conroy (Primary Endocrinology in [place]) [place], [place] [address] [facility] [address] [place] [phone] Social History Tobacco Use Types Packs/Day Years [...] do you attend anglican or Never 2021 zoroastrian services? Do you [...] encounter Progress Notes Sofia Conroy M.D. - 10/09/2017 12:00 AM CDT SUBJECTIVE ASSESSMENT / PLAN #1 Graves disease The patient comes back for followup. The 24-hour uptake was elevated initially at 4 hours 61, 24 hours 43. She has positive thyroid receptor antibodies. Free thyroxine is in the mid of 3. She feels slightly better on the propranolol, still has some palpitations, but slept better. She has no eye symptomatology. I discussed with her there is no evidence of any cold nodules in the thyroid, which she wasrelieved about. As her blood pressure today is at 144/85, we could try to increase the propranolol to 40 mg 3 times a day for a while. Next, we discussed the options for treatment of Graves disease including iodine therapy or antithyroid medications. I discussed all the pros and cons of these various t reatments, and patient would prefer to use medication therapy. We discussed the possible side effects, which include granulocytosis, liver function test abnormalities, rash. She will start methimazole 30 mg daily for 5 days, then she will go to 20 mg daily. I will see her back in about 2 weeks to recheck a free thyroxine level and adjust methimazole. She understands she will be on the medication perhaps 18 to 24 months and then if she is in remission, we can try to withdraw her, but there will be a chance of recurrence of the disease. The patient verbalized understanding and would like to proceed. Job ID: [id number]/malika documented in this encounter Plan of Treatment Scheduled Referrals Name Type Priority Associated Order Schedule Diagnoses Endocrinology office Outpatient Referral Routine Expected: visit (clinic) 10/20/2017 (Approximate), Expires: 10/09/2020 documented as of this encounter Visit Diagnoses Diagnosis Hyperthyroidism - Primary documented in this encounter Additional Health Concerns Assessment Noted Time PHQ-9 Depression Total Score: 7 09/12/2014 2:25 PM CDT documented as of this encounter Care Teams Hydraulic Assembler Relationship Specialty Start Date End Date Fausto Good P.A.-C. PCP - General 07/25/[address] [place] [phone] documented as of this encounter
--- OUTSIDE RECORDS SUMMARY | 2022-01-23 07:20 | XMS_ITS | Encounter Summary ---
:1965 Author Organization [facility] Address [address] [place] [address] Care Team Providers Name Role Phone Fausto Good P.A.-C. Primary Care Provider [phone] Reason for Referral Outpatient (Routine) - Closed Specialty Diagnoses / Procedures Referred By Contact Refer red To Contact Diagnoses Hyperthyroidism Sofia Conroy M.D. [facility] Procedures NM Thyroid Uptake and Scan NC THYROID IMG UPTAKE SNGL/MULT HC THYROID IMG UPTAKE SNGL/MULT NC THYROID IMG UPTAKE SNGL/MULT [address] [place] [address] Referral ID Status Reason Start Date Expiration Date Visits Requ ested Visits Authorized [id number] Closed 10/01/2017 10/01/2018 6 6 Reason for Visit Outpatient (Routine) - Closed Specialty Diagnoses / Procedures Referred By Contact Refer red To Contact Diagnoses Hyperthyroidism Sofia Conroy M.D. [facility] Procedures NM Thyroid Uptake and Scan NC THYROID IMG UPTAKE SNGL/MULT HC THYROID IMG UPTAKE SNGL/MULT NC THYROID IMG UPTAKE SNGL/MULT [address] [place] [address] Referral ID Status Reason Start Date Expiration Date Visits Requ ested Visits Authorized [id number] Closed 10/01/2017 10/01/2018 6 6 Encounter Details Date Type Department Care Team Description 10/08/2017 Hospital Encounter Department of Sofia Conroy, Hyper thyroidism Radiology, [facility], in [place], [facility] [address] [place], [place] [address] [facility] [address] [place], [place] [phone] (Work) [phone] Social History Tobacco Use Types Packs/Day Years [...] or relatives? How often do you attend yazdanism or Never 2021 caodaism services? Do you belong to any clubs or No 02/16/2021 organizations such as yazdanism groups, unions, fraternal or athletic groups, or [...] by a large photopenic cyst. Correlation with ghazala peace thyroid ultrasound will be helpful. Sofia Conroy M.D. IMG NM PROCEDURES documented in this encounter Visit Diagnoses Diagnosis Hyperthyroidism documented in this encounter Administered Medications Inactive Administered Medications - up to 3 most recent administrations Medication Order MAR Action Action Date Dose Rate Site sodium iodide I 123 oral Given 10/08/2017 8:37 AM CDT 958 microc uries solution < 1 millicurie (SODIUM IODIDE I-123) 958 microcurie., oral, Once, On Fri10/08/17 at 0845, For 1 dose documented in this encounter Additional Health Concerns Assessment Noted Time PHQ-9 Depression Total Score: 7 09/12/2014 2:25 PM CDT documented as of this encounter Care Teams Dumper Mold Cleaner Relationship Specialty Start Date End Date Fausto Good P.A.-C. PCP - General 07/25/16 [address] [place] [phone] documented as of this encounter
--- OUTSIDE RECORDS SUMMARY | 2022-01-23 07:20 | XMS_ITS | Encounter Summary ---
:1965 Author Organization [facility] Address [address] [place] [address] Care Team Providers Name Role Phone Fausto Good P.A.-C. Primary Care Provider [phone] Reason for Visit Reason Onset Date Comments F/U from [place] 10/28/2017 Encounter Details Date Type Department Care Team Description 10/28/2017 Clinical Communication [facility] in [place], [place] 225 [facility] [address] [place] [phone] Social History Tobacco Use Types Packs/Day [...] or relatives? How often do you attend religious or Never 2021 presybeterian services? Do you belong to any clubs or No 02/16/2021 organizations such as religious groups, unions, fraternal or athletic groups, or [...] Telephone Encounter - Chen Ivan L.P.N. - 10/29/2017 12:46 PM CDT Notified Hannah Telephone Encounter - Fausto Good P.A.-C. - 10/29/2017 11:14 AM CDT With this diagnosis she needs to keep following in Endocrinology. I am sorry she had a bad experience Telephone Encounter - Day Abarca C.M.A. - 10/28/2017 1:28 PM CDT I called patient to inform her Fausto is out today and will be back in clinic tomorrow. She voiced interest in transferring management of her graves disease and thyroid to Fausto. Patient voiced frustration about her appointment. Please call patient when you are back in clinic to discuss. Telephone Encounter - Tana Willard - 10/28/2017 1:02 PM CDT Patient went to see an er registrar in [place] today. She had an unpleasant experience and is sort of lost as to what her next steps are, since they were not fully explained to her. They expected labs to be done before her appointment and so the provider did not nhave as much information. She washoping to get a call from Dr. Lambert. Please call back at [phone] documented in this encounter Plan of Treatment Not on filedocumented as of this encounter Visit Diagnoses Not on filedocumented in this encounter Additional Health Concerns Assessment Noted Time PHQ-9 Depression Total Score: 7 09/12/2014 2:25 PM CDT documented as of this encounter Care Teams Supervisor Printing Shop Relationship Specialty Start Date End Date Fausto Good P.A.-C. PCP - General 07/25/[address] [place] [phone] documented as of this encounter
--- OUTSIDE RECORDS SUMMARY | 2022-01-23 07:20 | XMS_ITS | Encounter Summary ---
:1965 Author Organization [facility] Address [address] [place] [address] Care Team Providers Name Role Phone Fausto Good P.A.-C. Primary Care Provider [phone] Encounter Details Date Type Department Care Team Description 10/28/2017 Lab RST Sofia Cortez M.D. Hyperthyroidism [address] [facility] [address] [place] [address] [place] [phone] (Wo rk) Social History Tobacco Use Types [...] do you attend hindu or Never 2021 jehovah's witness services? Do you belong to any clubs or No 02/16/2021 organizations such as hindu groups, unions, fraternal or athletic groups, or [...] Progress Notes Sofia Conroy M.D. - 10/28/2017 11:40 AM CDT Please inform the patient of free thyroxine is already normal at 1.7. I would recommend to continue methimazole at 20 milligrams a day please have her check free thyroxine in 4 weeks rather than 6 weeks you might need to changed orders. documented in this encounter Plan of Treatment Not on filedocumented as of this encounter Procedures Procedure Name Priority Date/Time Associated Diagnosis Comme nts T4 (THYROXINE), Routine 10/28/2017 8:52 AM Hyperthyroidism Res ults for this FREE, S CDT procedure are i n the results section. documented in this encounter Results T4 (Thyroxine), Free (10/28/2017 8:52 AM CDT) P athologist Signature T4 1.7 0.9 - 1.7 10/28/2017 [facility] (Thyroxine), ng/dL 11:45 AM CDT LABORATORIES - Free, S [facility] Specimen Anatomical Collection Method Collection Time Receive d Time (Source) Location / / Volume Laterality Blood (Blood, 10/28/2017 8:52 AM 10/29/19 18 Venous) CDT 11:17 AM CDT Sofia Conroy M.D. LAB BLOOD ADD-ON Performing Organization Address City/State/ZIP Code Phon e Number [facility]IES - [address] [place], [place] [address] [facility] documented in this encounter Visit Diagnoses Diagnosis Hyperthyroidism documented in this encounter Additional Health Concerns Assessment Noted Time PHQ-9 Depression Total Score: 7 09/12/2014 2:25 PM CDT documented as of this encounter Care Teams Acid Crane Operator Relationship Specialty Start Date End Date Fausto Good P.A.-C. PCP - General 07/25/16 [address] [place] [phone] documented as of this encounter
--- OUTSIDE RECORDS SUMMARY | 2022-01-23 07:20 | XMS_ITS | Encounter Summary ---
:1965 Author Organization [facility] Address [address] [place] [address] Care Team Providers Name Role Phone Fausto Good P.A.-C. Primary Care Provider [phone] Encounter Details Date Type Department Care Team Description 10/28/2017 Hospital Encounter Department of Milli Conroy Cancer Colon; Laboratory Medicine Latrice Black Screening Examination For Thyroid Disord er; and Pathology, [address] [place] [address] Screening Examination Diabetes Mellitus; [place], [place] Iron Defi ciency Anemia Screening Exam; in [place], [phone] Encounter For Screening For Cardiovascul ar Disorders; [place] [phone] Loss Weight [address] [facility] (Work) [place], [place] [phone] (Fax) [phone] Social History Tobacco Use Types Packs/Day Years [...] do you attend mosque or Never 2021 nondenominational services? Do you belong to any clubs [...] slept in a care home (including now)? Sex Assigned at Date [...] Name Priority Date/Time Associated Diagnosis Comme nts HEMOGLOBIN A1C, B Routine 10/28/2017 8:55 Screening Canc er Colon Results for this AM CDT Screening Examination proced ure are in For Thyroid Diso rder the results Screening Examination sectio n. Diabetes Mellitu s Iron Deficiency Anemia Screening Exam Encounter For Screening For Cardiovascular Disorders Loss Weight COMPREHENSIVE Routine 10/28/2017 8:55 Screening Cancer Colon Results for this METABOLIC PANEL, S/P AM CDT Screening Examinatio n procedure are in For Thyroid Diso rder the results Screening Examination sectio n. Diabetes Mellitu s Iron Deficiency Anemia Screening Exam Encounter For Screening For Cardiovascular Disorders Loss Weight documented in this encounter Results (ABNORMAL) Comprehensive Metabolic Panel (10/28/2017 8:55 AM CDT) Analysis Performed At Patho logist Time Signature Potassium, S 4.7 3.6 - 5.2 10/28/2017 [facility] mmol/L 9:46 AM CDT [facility] Sodium, S 141 135 - 145 10/28/2017 [facility] mmol/L 9:46 AM CDT LAB[facility]IES [facility] Chloride, S 104 98 - 107 10/28/2017 [facility] mmol/L 9:46 AM CDT [facility] Bicarbonate, S 27 22 - 29 10/28/2017 [facility] mmol/L 9:46 AM CDT LAB[facility] Anion Gap 10 7 - 15 10/28/2017 [facility] 9:46 AM CDT LAB[facility]IES [facility] BUN (Blood Urea 12 6 - 21 10/28/2017 [facility] Nitrogen), S mg/dL 9:46 AM CDT LAB[facility] Creatinine 0.59 0.59 - 10/28/2017 [facility] 1.04 mg/dL 9:46 AM CDT [facility] eGFR-Non >90 >=60 10/28/2017 [facility] Black/ mL/min/BSA 9:46 CDT LABORATORIES [facility] Comment: ----ADDITIONAL INFORMATION---- Estimated GFR calculated using the 2009 CKD_EPI creatinine equation. eGFR-Black/ >90 >=60 mL/min/BSA 10/28/2017 9:46 [facility] CDT [facility] Comment: ----ADDITIONAL INFORMATION---- Estimated GFR calculated using the 2009 CKD_EPI creatinine equation. Calcium, Total, S 9.6 8.6 - 10.0 10/28/2017 9:46 [facility] mg/dL CDT [facility] Glucose, S 127 70 - 140 10/28/2017 9:46 [facility] mg/dL AM CDT [facility] Protein, Total, S 6.8 6.3 - 7.9 10/28/2017 9:46 [facility] g/dL CDT [facility] Albumin, S 4.1 3.5 - 5.0 10/28/2017 9:46 [facility] g/dL AM CDT [facility] Aspartate 20 8 - 43 U/L 10/28/2017 9:46 [facility] Aminotransferase (AST), AM CDT [facility] Alkaline Phosphatase, S 131 (H) 39 - 100 U/L 10/28/2017 9: 46 [facility] AM CDT LAB[facility]ATORIES [facility] Alanine Aminotransferase 33 7 - 45 U/L 10/28/2017 9:4 6 [facility] (ALT), S AM CDT [facility] - [facility] Bilirubin, Total, S 0.3 <=1.2 mg/dL 10/28/2017 9:46 [facility] AM CDT [facility] - [facility] Specimen Anatomical Collection Method Collection Time Receive d Time (Source) Location / / Volume Laterality Blood (Blood, 10/28/2017 8:55 AM 10/29/19 9:03 Venous) CDT AM CDT Fausto Good P.A.-C. LAB BLOOD ADD-ON Performing Organization Address City/[facility]/ZIP Code Phon e Number [facility] LABORATORIES - [address] [place], [place] [address] [facility] Hemoglobin A1c (10/28/2017 8:55 AM CDT) Analysis Performed At Patho logist Time Signature Hemoglobin A1c, 5.4 4.0 - 5.6 10/28/2017 [facility] B % 9:59 AM CDT [facility] - [facility] Specimen Anatomical Collection Method Collection Time Receive d Time (Source) Location / / Volume Laterality Blood (Blood, 10/28/2017 8:55 AM 10/29/19 9:03 Venous) CDT AM CDT Fausto Good P.A.-C. LAB BLOOD ADD-ON Performing Organization Address City/State/ZIP Code Phon e Number [facility] - [address] [place] [phone] [facility] documented in this encounter Visit Diagnoses Diagnosis Screening Cancer Colon Screening Examination For Thyroid Disord er Screening Examination Diabetes Mellitus Iron Deficiency Anemia Screening Exam Encounter For Screening For Cardiovascul ar Disorders Loss Weight documented in this encounter Additional Health Concerns Assessment Noted Time PHQ-9 Depression Total Score: 7 09/12/2014 2:25 PM CDT documented as of this encounter Care Teams Sleeping Car Service Attendant Relationship Specialty Start Date End Date Fausto Good P.A.-C. PCP - General 07/25/16 [address] [place] [phone] documented as of this encounter
--- OUTSIDE RECORDS SUMMARY | 2022-01-23 07:20 | XMS_ITS | Encounter Summary ---
:1965 Author Organization [facility] Address [address] [place] [address] Care Team Providers Name Role Phone Fausto Good P.A.-C. Primary Care Provider [phone] Reason for Visit Reason Onset Date Comments er f/u 11/04/2017 Encounter Details Date Type Department Care Team Description 11/04/2017 Clinical Communication Department of Fausto Lam er f/elmo Medicine, [place] [facility], in [address] [address] [place], [place] [phone] (Work) [phone] Social History Tobacco Use Types Packs/Day Years [...] do you attend mu-ism or Never 2021 pentecostalism services? Do you belong to any clubs or No 02/16/2021 organizations such as mu-ism groups, unions, fraternal or athletic groups, or [...] slept in a senior living (including now)? Sex Assigned at Date Recorded Female 10/01/2017 7:47 AM CDT documented as of this encounter Miscellaneous Notes Telephone Encounter - Day Abarca C.M.AFarzana - 11/05/2017 10:01 AM CDT I called patient and she had just spoken to VALENTE Siddiqui. Telephone Encounter - Chen Curran L.P.N. - 11/05/2017 9:[address] to scheduled appt now Telephone Encounter - Rocio Yeboah M.D. - 11/04/2017 5:06 PM CDT It is best to wait to see endocrine at the scheduled appointment. Telephone Encounter - Kristal Edouard L.P.NFarzana - 11/04/2017 11:40 AM CDT Patient states that she is miserable and has had hives since last . She has an appt in [place] tomorrow but is wondering about oral steroids. Telephone Encounter - Rajat Ornelas - 11/04/2017 10:33 AM CDT Patient was seen in the er friday for hives. Wants something to help with this. I did offer to set up an appointment, but the patient just wanted to send a note to DR. Good. Patient contact [phone] please advise. documented in this encounter Plan of Treatment Not on filedocumented as of this encounter Visit Diagnoses Not on filedocumented in this encounter Additional Health Concerns Assessment Noted Time PHQ-9 Depression Total Score: 7 09/12/2014 2:25 PM CDT documented as of this encounter Care Teams Electrician Assistant Relationship Specialty Start Date End Date Fausto Good P.A.-C. PCP - General 07/25/[address] [place] [phone] documented as of this encounter
--- OUTSIDE RECORDS SUMMARY | 2022-01-23 07:20 | XMS_ITS | Encounter Summary ---
:1965 Author Organization [facility] Address [address] [place] [address] Care Team Providers Name Role Phone Fausto Good P.A.-C. Primary Care Provider [phone] Reason for Visit Outpatient (Routine) - Closed Specialty Diagnoses / Procedures Referred By Contact Refer red To Contact Diagnoses Hyperthyroidism Sofia Conroy M.D. [facility] Procedures NM Thyroid Uptake and Scan VA THYROID IMG UPTAKE SNGL/MULT HC THYROID IMG UPTAKE SNGL/MULT VA THYROID IMG UPTAKE SNGL/MULT [address] [place] [address] Referral ID Status Reason Start Date Expiration Date Visits Requ ested Visits Authorized [id number] Closed 10/01/2017 10/01/2018 6 6 Encounter Details Date Type Department Care Team Description 10/08/2017 Hospital Encounter Department of Radiology, Sofia Conroy [facility], in M.D. [place], [place] [address] [facility] [address] [place] [phone] Social History Tobacco Use Types Packs/Day Years [...] do you attend voodoo or Never 2021 sikh services? Do you [...] documented as of this encounter Care Teams Grain Combine Driver Relationship Specialty Start Date End Date Fausto Good P.A.-C. PCP - General 07/25/[address] [place] [phone] documented as of this encounter
--- OUTSIDE RECORDS SUMMARY | 2022-01-23 07:20 | XMS_ITS | Encounter Summary ---
:1965 Author Organization [facility] Address [address] [place] [address] Care Team Providers Name Role Phone Fausto Good P.A.-C. Primary Care Provider [phone] Encounter Details Date Type Department Care Team Description 11/03/2017 Documentation Division [place] [address] [facility] [address] [place] [address] [place], [place] [phone] (Wo rk) Social History Tobacco Use Types [...] do you attend restorationist or Never 2021 jainism services? Do you [...] encounter Progress Notes Sofia Conroy M.D. - 11/03/2017 11:24 AM CDT I received a message from our nursing staff which I reviewed on October that patient has been having a rash which had the spread over her body she was taking the Benadryl continue treatment with methimazole over the weekend. On her own she visited the emergency room yes today and was told that this is viral. I recommended to the patient to discontinue for now methimazole it can cause marbin even with a delayed reaction and that she is evaluated evaluated in emergency room for possibility of steroids taper. We will need to see had at the clinic here to reassess had other treatment options for Graves. documented in this encounter Plan of Treatment Not on filedocumented as of this encounter Visit Diagnoses Not on filedocumented in this encounter Additional Health Concerns Assessment Noted Time PHQ-9 Depression Total Score: 7 09/12/2014 2:25 PM CDT documented as of this encounter Care Teams Payroll Technician Relationship Specialty Start Date End Date Fausto Good P.A.-C. PCP - General 07/25/[address] [place] [phone] documented as of this encounter
--- OUTSIDE RECORDS SUMMARY | 2022-01-23 07:20 | XMS_ITS | Encounter Summary ---
:1965 Author Organization [facility] Address [address] [place] [address] Care Team Providers Name Role Phone Fausto Good P.A.-C. Primary Care Provider [phone] Encounter Details Date Type Department Care Team Description 11/05/2017 Ancillary Procedure Department of Endocrinology Social History Tobacco Use Types Packs/Day Years [...] do you attend confucianist or Never 2021 zoroastrian services? Do you [...] Procedure Name Priority Date/Time Associated Comments Diagnosis ENDOCRINOLOGY IMAGE Routine 11/05/2017 1:20 PM Re sults for this EXAM CDT procedure are i n the results section. documented in this encounter Results ENDOCRINOLOGY IMAGE EXAM (11/05/2017 1:20 PM CDT) Specimen (Source) Anatomical Collection Method Collection Time Re ceived Time Location / / Volume Laterality 11/05/2017 1:18 PM CDT Narrative [facility] - 11/05/2017 1:20 PM CDT This order has been created and auto-finalized to support the import of images acquired without order. The clini neto documentation to support these images can be found on the encounter maria t t produced images. Provider Not In System IMG NON RAD IMAGING PROCEDUR ES Performing Organization Address City/State/ZIP Code Phon e Number [facility] documented in this encounter Visit Diagnoses Not on filedocumented in this encounter Additional Health Concerns Assessment Noted Time PHQ-9 Depression Total Score: 7 09/12/2014 2:25 PM CDT documented as of this encounter Care Teams Embossograph Operator Relationship Specialty Start Date End Date Fausto Good P.A.-C. PCP - General 07/25/[address] [place] [phone] documented as of this encounter
--- OUTSIDE RECORDS SUMMARY | 2022-01-23 07:20 | XMS_ITS | Encounter Summary ---
:1965 Author Organization [facility] Address [address] [place] [address] Care Team Providers Name Role Phone Fausto Good P.A.-C. Primary Care Provider [phone] Reason for Visit Reason Comments Other Established Endo Outpatient (Routine) - Closed Specialty Diagnoses / Procedures Referred By Contact Refer red To Contact Endocrinology Diagnoses na Sofia Conroy M.D. [facility] [address] [place], [place] [phone] Referral ID Status Reason Start Date Expiration Date Visits Requ ested Visits Authorized [id number] Closed 11/03/2017 11/03/2018 1 1 Encounter Details Date Type Department Care Team Description 11/05/2017 Office Visit Division of Rocco Conroy (Primary Endocrinology in Latrice Black Dx) [place], [place] [address] [facility] [address] [place] [phone] Social History Tobacco Use Types Packs/Day Years [...] do you attend christian or Never 2021 gnosticism services? Do you belong to any clubs or No 02/16/2021 organizations such as christian groups, unions, fraKARALIT or athletic groups, or school groups? How [...] Sign Reading Time Taken Comments Blood Pressure 152/84 11/05/2017 12:27 PM CDT Pulse 65 11/05/2017 12:27 PM CDT Temperature - - Respiratory Rate - - Oxygen Saturation - - Inhaled Oxygen Concentration - - Weight 68.6 kg (151 lb 3.8 oz) 11/05/2017 12:27 PM CDT Height 158 cm (5' 2.21) 11/05/2017 12:27 PM CDT Body Mass Index 27.48 11/05/2017 12:27 PM CDT documented in this encounter Progress Notes Sofia Conroy M.D. - 11/05/2017 12:00 AM CDT SUBJECTIVE HISTORY OF PRESENT ILLNESS The patient told me that last Friday she developed a rash which was extremely itchy. This rash progressed despite using Benadryl. She was evaluated in the Emergency Room, and it was thought it was viral. I asked her to discontinue methimazole on Friday. Since Friday, the patient still has a generalized rash/urticaria, but it is better. OBJECTIVE PHYSICAL EXAMINATION Thyroid: The patient has no signs of hyperthyroidism; no tremor and no sweating. Extremities: She has a few erythematous rash rounded areas which bleach upon pressure over her upperextremities, lower extremities, neck, face, and some on torso. ASSESSMENT / PLAN #1 Graves disease #2 Allergy to methimazole At this point, we discussed with her options. It would be a consideration to switch to PTU, but she still has quite significant rashes, with itching, despite Benadryl. Therefore, her second option would be iodine therapy. I would recommend 19 mEq iodine-131 next week, 1 week after discontinuation of me thimazole. She is most likely to become hypothyroid and need lifelong thyroid hormone replacement therapy to prevent any progression into Graves ophthalmopathy, I recommended to the patient to discontinue smoking and use artificial tear drops. We should see her back in 6 weeks after the iodine therapy. For now, the patient is to continue atenolol. I also gave her a prescription on medrol Dosepak because of the significant skin rash allergy. CT CT Job ID: [id number] documented in this encounter Plan of Treatment Not on filedocumented as of this encounter Results Creatinine with Estimated GFR (12/22/2017 8:50 AM DISTRICT SALES MANAGER) Analysis Performed At Patho logist Time Signature Creatinine 0.67 0.59 - 12/22/2017 [facility] 1.04 mg/dL 11:23 AM DISTRICT SALES MANAGER LABORATORIES [facility] eGFR-Non >90 >=60 12/22/2017 [facility] Black/ mL/min/BSA 11:23 AM DISTRICT SALES MANAGER LABORATORIES [facility] Comment: ----ADDITIONAL INFORMATION---- Estimated GFR calculated using the 2009 CKD_EPI creatinine equation. eGFR-Black/ >90 >=60 mL/min/BSA 12/22/2017 11:2 3 [facility] Anguillan AM DISTRICT SALES MANAGER LABORATORIES [facility] Comment: ----ADDITIONAL INFORMATION---- Estimated GFR calculated using the 2009 CKD_EPI creatinine equation. Specimen Anatomical Collection Method Collection Time Receive d Time (Source) Location / / Volume Laterality Blood (Blood, 12/22/2017 8:50 AM 12/23/19 18 9:10 Venous) DISTRICT SALES MANAGER AM DISTRICT SALES MANAGER Sofia Conroy M.D. LAB BLOOD ADD-ON Performing Organization Address City/[facility] Code Phon e Number [facility] LABORATORIES - [address] [place] [phone] [facility] (ABNORMAL) Hepatic Function Panel (12/22/2017 8:50 AM DISTRICT SALES MANAGER) Component Value Ref Test Analysis Performed At [facility] [employer] Range Method Time Signature Bilirubin, Total, S 0.3 <=1.2 12/22/2017 [facility] mg/dL 11:23 AM LABORATORIES - [facility] Bilirubin, Direct, S <0.2 0.0 - 12/22/2017 [facility] [place] 0.3 11:23 AM LABORATORIES - mg/dL [facility] Aspartate 26 8 - 43 12/22/2017 [facility] Aminotransferase U/L 11:23 AM LABORATORIES - (AST), S [facility] Alanine 36 7 - 45 12/22/2017 [facility] Aminotransferase U/L 11:23 AM LABORATORIES - (ALT), S [facility] Alkaline 147 (H) 35 - 104 12/22/2017 [facility] Phosphatase, S U/L 11:23 AM [facility]ATORIES - [facility] Albumin, S 4.1 3.5 - 12/22/2017 [facility] 5.0 g/dL 11:23 AM LABORATORIES - [facility] Protein, Total, S 7.0 6.3 - 12/22/2017 [facility] 7.9 g/dL 11:23 AM LABORATORIES - [facility] Specimen Anatomical Collection Method Collection Time Receive d Time (Source) Location / / Volume Laterality Blood (Blood, 12/22/2017 8:50 AM 12/23/19 18 9:10 Venous) DISTRICT SALES MANAGER AM DISTRICT SALES MANAGER Sofia Conroy M.D. LAB BLOOD ADD-ON Performing Organization Address City/[facility] Code Phon e Number [facility] LABORATORIES - [address] [place] [phone] [facility] (ABNORMAL) S-TSH (Thyroid-Stimulating Hormone - Sensitive) (12/22/2017 8:50 AM DISTRICT SALES MANAGER) [facility] [employer] Method Time Signature TSH, Sensitive <0.01 (L) 0.3 - 4.2 12/22/2017 [facility] mIU/L 11:23 AM DISTRICT SALES MANAGER LABORATORIES - [facility] Specimen Anatomical Collection Method Collection Time Receive d Time (Source) Location / / Volume Laterality Blood (Blood, 12/22/2017 8:50 AM 12/23/19 18 9:10 Venous) DISTRICT SALES MANAGER AM DISTRICT SALES MANAGER Sofia Conroy M.D. LAB BLOOD ADD-ON Performing Organization Address City/State/ZIP Code Phon e Number [facility] LABORATORIES - [address] [place], [place] [address] [facility] documented in this encounter Visit Diagnoses Diagnosis Hyperthyroidism - Primary documented in this encounter Additional Health Concerns Assessment Noted Time PHQ-9 Depression Total Score: 7 09/12/2014 2:25 PM CDT documented as of this encounter Care Teams Assembler Lay Ups Relationship Specialty Start Date End Date Fausto Good P.A.-C. PCP - General 07/25/16 [address] [place] [phone] documented as of this encounter
--- OUTSIDE RECORDS SUMMARY | 2022-01-23 07:21 | XMS_ITS | Encounter Summary ---
:1965 Author Organization [facility] Address [address] [place] [address] Care Team Providers Name Role Phone Unavailable Primary Care Provider Unavailable Encounter Details Date Type Department Care Team Description 12/26/2015 Hospital Encounter HX [facility] Sagar Delaney M.D. [address] [place] [address], [address] [place] [address] (Wo rk) Social History Tobacco Use Types Packs/Day Years Used Date Smoking Tobacco: Never Assessed Alcohol Habits Answer Date Recorded How often [...] do you attend episcopal or Never 2021 voodoo services? Do you [...] or slept in a assisted (including now)? Sex Assigned at Date Recorded Female 10/01/2017 7:47 AM CDT documented as of this encounter Last Filed Vital Signs Vital Sign Reading Time Taken Comments Blood Pressure 124/84 12/26/2015 12:24 PM ORDER DISPATCHER CHIEF Pulse - - Temperature - - Respiratory Rate - - Oxygen Saturation - - Inhaled Oxygen Concentration - - Weight 84.9 kg (187 lb 4.5 oz) 12/26/2015 12:24 PM ORDER DISPATCHER CHIEF Height 158 cm (5' 2.21) 12/26/2015 12:24 PM ORDER DISPATCHER CHIEF Body Mass Index 34.03 12/26/2015 12:24 PM ORDER DISPATCHER CHIEF documented in this encounter Procedure Notes Arsh Delaney M.D. - 12/26/2015 12:00 AM CST 1EMG [facility] [employer] Arsh Delaney MD ([phone]). HISTORY/INDICATION Ms. Jovany Kahn is a pleasant 50-year-old female who has a several-month history of bilateral hand paresthesias. SUMMARY Prior to starting the procedure, the patients identity was verified, pertinent available records were reviewed, the nature of the procedure was explained, the appropriate sites of the exam were confirmed directly with the patient, and a pre-procedure pause was performed for final verification of all of the above. Please see nerve conduction and needle electromyographic examination summary data scanned into medical record. Nerve conduction studies showed prolonged medial palmar sensory distal latencies bilaterally. Needleexamination of the right upper extremity and left opponens pollicis was normal. CLINICAL INTERPRETATION 1. There is electrophysiologic evidence of mild median neuropathies at the wrists bilaterally. Thesefindings are consistent with the clinical diagnosis of bilateral carpal tunnel syndrome. Arsh Delaney M.D./[place] Electronically Signed By: ARSH DELANEY MD On: 01/02/2016 01:33 PM Modified by and Electronically Signed by: ARSH DELANEY MD On: 01/02/2016 01:33 PM Source: [facility] MHSDOLBEYNONRADSYS Document Id: [id number] R DISPATCHER CHIEF documented in this encounter Miscellaneous Notes Miscellaneous - Zane Stern L.P.N. - 12/28/2015 9:28 AM CST *General Message Document Contains Addenda Addendum by ANTONY WEST on December 28, 2015 10:26:14 ORDER DISPATCHER CHIEF From: ANTONY WEST ( [place] [employer] Lever Operator) To: Physical Medicine and Rehabilitation Staff; Sent: 12/28/2015 10:26:14 ORDER DISPATCHER CHIEF Subject: RE: *General Message Done as requested. From: ZANE STERN LPN ( Physical Medicine and Rehabilitation Staff) To: [place] [employer] L[employer] Operator; Sent: 12/28/2015 09:28:38 ORDER DISPATCHER CHIEF Subject: *General Message Please call her and schedule her for bilateral carpal tunnel injections on 01/09 at 1:30 pm. Source: [facility] POWERCHART Document Id: [id number] Electronically signed by Aaron [facility] Parcel Post Clerk [id number] at 07/07/2016 8:09 AM CDT Telephone Encounter - Arsh Delaney M.D. - 12/27/2015 12:00 AM CST [id number] I spoke with Ms. Jovany Kahn on the phone today following the EGD she had performed yesterday. This did show electrophysiologic evidence of mild median neuropathies at the wrists bilaterally. I diddiscuss various options for management with her, including the possibility of having her involved in occupational therapy, proceeding with bilateral carpal tunnel corticosteroid injections, or having her meet with a surgeon to consider the possibility of operative management. After discussing options with her, at this point in time, Ms. Jovany Kahn would like to proceed with bilateral carpal tunnel corticosteroid injections as she does not have time to take off to proceed with any type of surgical management and I think that is reasonable based on the results of her EMG and her physical examination findings and symptoms. We will arrange for this to occur for her. She voiced agreement with thisplan. Arsh Delaney M.D./[place] Electronically Signed By: ARSH DELANEY MD On: 01/02/2016 01:33 PM Modified by and Electronically Signed by: ARSH DELANEY MD On: 01/02/2016 01:33 PM Source: [facility] MHSDOLBEYNONRADSYS Document Id: [id number] R DISPATCHER CHIEF Miscellaneous - Arsh Delaney M.D. - 12/26/2015 2:18 PM CST Ambulatory Patient Summary [address] [id number] Visit Information Name: HANNAH DANIELSON [facility] Number: [id number] Current Date: 12/26/2015 14:18:48 Physicians Attending Provider: ARSH DELANEY MD Primary Care Provider: YNES VASQUEZ PA-C HANNAH DANIELSON has been given the following list of follow-up instructions, medicationlist, and patient education materials: Follow-up Instructions Your Medications Here is a list of your medications. It is important to take your medications as directed. Use a pillbox or chart to help remind you to take your medications. Please let your doctor or nurse know if you have problems taking your medications. Medication/Strength How to Take Indications/Special Instructions/Comments/Notes for Patient Medication Changes/Routing cyclobenzaprine (Flexeril 10 mg oral tablet) 1 Tablet(s), Oral, once a day lisinopril-hydrochlorothiazide (lisinopril-hydrochlorothiazide 20 mg-12.5 mg oral tablet) 1 Tablet(s), Oral, once a day (Zestoretic) traMADol (traMADol 50 mg oral tablet) 1 Tablet(s), Oral, every 6 hours as needed for Pain Stop Taking the Following Medications: Medication list as of 12-26-15 14:18 Attention: If you have any medications at home that are not on this list, DO NOT take them until youcontact your provider for clarification. Give a copy of your medication list to your primary care provider. Update your medication list any time medications or doses are changed and carry your medication list at all times in case of emergency. Electronically Signed By: ARSH DELANEY MD Signed On:26-DEC-2015 14:18:36 Your Allergies & Intolerances Substance Reaction Symptoms Category Comments amoxicillin Drug cephalosporins Drug penicillins Drug Ceclor Drug iodine Drug Your Problem List Problem Status Onset Comments Carpal Tunnel Syndrome Active 09/17/2007 Hypertension Active 03/08/2008 Allergic Reaction Active 04/18/2008 Ganglion Cyst Active 01/24/2009 Headache Migraine Active Your Upcoming Appointments Date Time Location Provider 04/10/2016 09:30 [facility] Room 2 04/10/2016 10:00 [facility] Room 1 Attention: Contact your local Clinic if further appointment detail needed. Consider Using Patient Online Services Patient Online Services is a secure online and Mobile application that lets you: ?? View lab and test results ?? View portions of your medical record including clinical notes, immunizations and discharge summaries ?? Request an appointment or medication refill ?? Review your appointment schedule ?? Send secure messages to your care team Its easy to create an account if you dont have one. Go to [email or web address] and click on Create Your Account. Then, follow the directions to complete the online form. Youll be asked for your [facility] number which you can find at the top of this document. Your Goals/Additional instructions: Source: [facility] POWERCHART Document Id: [id number] R DISPATCHER CHIEF Miscellaneous - Arsh Delaney M.D. - 12/26/2015 2:18 PM CST Ambulatory Discharge Medication List [address] [id number] Visit Information Name: HANNAH DANIELSON LUPE [facility] Number: [id number] Current Date: 12/26/2015 14:18:47 Attending Provider: ARSH DELANEY MD Primary Care Provider: YNES VASQUEZ PA-C HANNAH DANIELSON LUPE has been given the following list of medications: Your Medications It is important to take your medications as directed. Use a pill box or chart to help remind you to take your medications. Please let your doctor or nurse know if you have problems taking your medications. Medication/Strength How to Take Indications/Special Instructions/Comments/Notes for Patient Medication Changes/Routing cyclobenzaprine (Flexeril 10 mg oral tablet) 1 Tablet(s), Oral, once a day lisinopril-hydrochlorothiazide (lisinopril-hydrochlorothiazide 20 mg-12.5 mg oral tablet) 1 Tablet(s), Oral, once a day (Zestoretic) traMADol (traMADol 50 mg oral tablet) 1 Tablet(s), Oral, every 6 hours as needed for Pain Stop Taking the Following Medications: Medication list as of 12-26-15 14:18 Attention: If you have any medications at home that are not on this list, DO NOT take them until youcontact your provider for clarification. Give a copy of your medication list to your primary care provider. Update your medication list any time medications or doses are changed and carry your medication list at all times in case of emergency. Electronically Signed By: ARSH DELANEY MD Signed On:26-DEC-2015 14:18:36 Additional Information: Source: [facility] POWERCHART Document Id: [id number] R DISPATCHER CHIEF Miscellaneous - Zane Stern, LFarzanaP.N. - 12/26/2015 12:24 PM CST Adult Concrete Rubber Intake/History Adult Concrete Rubber Intake/History Entered On: 12/26/2015 12:25 ORDER DISPATCHER CHIEF Performed On: 12/26/2015 12:24 ORDER DISPATCHER CHIEF by ZANE STERN LPN Intake Systolic Blood Pressure : 124 mmHg Diastolic Blood Pressure : 84 mmHg NIBP Mean : 97 mmHg BP Location : Right upper extremity Blood Pressure Cuff Size : Regular Height : 158 cm(Converted to: 5 ft 2 inch(es), 62 inch(es)) Actual Weight : 84.95 kg(Converted to: 187 lb 5 oz) Dosing Weight Clinic : 84.95 kg Clinic BSA : 1.93 Body Mass Index : 34.03 kg/m2 ZANE STERN LPN - 12/26/2015 12:24 ORDER DISPATCHER CHIEF General Info Information Given By : Patient Languages : Portuguese Is Patient Female and 13-50 no hysterectomy : Yes Status : Patient denies Are you ? : No ZANE STERN LPN - 12/26/2015 12:24 ORDER DISPATCHER CHIEF Subjective Pain Symptoms : No ZANE STERN LPN - 12/26/2015 12:24 ORDER DISPATCHER CHIEF Dependent Habits Exposure to Tobacco Smoke : Patient smokes Smoking Status : Current every day smoker Tobacco 2A : Yes Tobacco Use/Currently Using : Yes Tobacco Use/Last 30 Days : Yes Tobacco Use/Last 12 months : Yes Type : Cigarettes: Less than 20 per day Tobacco Use/Advised to Quit : Yes ZANE STERN LPN - 12/26/2015 12:24 ORDER DISPATCHER CHIEF Source: [facility] ZenedyCHART Document Id: [id number] ORDER DISPATCHER CHIEF!29 R DISPATCHER CHIEF documented in this encounter Plan of Treatment Not on filedocumented as of this encounter Visit Diagnoses Not on filedocumented in this encounter Additional Health Concerns Assessment Noted Time PHQ-9 Depression Total Score: 7 09/12/2014 2:25 PM CDT documented as of this encounter
--- OUTSIDE RECORDS SUMMARY | 2022-01-23 07:21 | XMS_ITS | Encounter Summary ---
:1965 Author Organization [facility] Address [address] [place] [address] Care Team Providers Name Role Phone Unavailable Primary Care Provider Unavailable Encounter Details Date Type Department Care Team Description 05/27/2016 Hospital Encounter HX [facility] FAMILYPRA Onelia Good P.A.-C. [address] [place] [address] (Wo rk) Social History [...] do you attend yarsani or Never 2021 baptist services? Do you [...] Sign Reading Time Taken Comments Blood Pressure 124/88 05/27/2016 11:44 AM CDT Pulse 88 05/27/2016 11:44 AM CDT Temperature - - Respiratory Rate 12 05/27/2016 11:44 AM CDT Oxygen Saturation - - Inhaled Oxygen Concentration - - Weight 85 kg (187 lb 6.3 oz) 05/27/2016 11:44 AM CDT Height 158 cm (5' 2.21) 05/27/2016 11:44 AM CDT Body Mass Index 34.05 05/27/2016 11:44 AM CDT documented in this encounter Progress Notes Ynes Good P.A.-C. - 05/27/2016 11:35 AM CDT [id number] CHIEF COMPLAINT/REASON FOR VISIT Foot pain and chronic headaches. HISTORY OF PRESENT ILLNESS Kaitlin is a pleasant 42-year-old female who has had plantar fasciitis for about the last 6 months. She has tried a night splint. She has tried different orthotics. She has tried icing and massaging without much success. She also has had chronic migraine headaches. She has tried Imitrex without success. She uses Flexeril rarely. She uses tramadol as needed. She does not really know an exact trigger. She has been trying to find a specific food or anything else that seems to trigger it but she gets at least 1 or 2 a week and they last anywhere from an hour to half a day. VITAL SIGNS Noted in the EMR. PHYSICAL EXAMINATION GENERAL: She appears in no acute distress. HEENT: Pupils equal and round and reactive to light. I tried to do a funduscopic exam but was limited due to pupillary constriction. EXTREMITIES: Foot: Her right heel has discomfort to palpation on the anterior aspect of the heel on the medial portion. IMPRESSION/REPORT/PLAN 1. Plantar fasciitis. We spent a good deal of time today discussing treatment options for this. I actually did a tape procedure on her foot today and this seemed to help with her symptoms. She may continue to do this as necessary. I talked about a myofascial release roller to trial. We also talked about night splints and icing and she will continue to work on these things. If she does not get benefitwith this multitude of different things to try she will let us know and I will set her up to see for consideration of injection. 2. Migraine headaches. We talked about episodic migraines and she definitely seems to have chronic migraine headaches. I am going to give her a trial of some propranolol. She has never tried a beta suraj. We will use 80 mg extended- release once daily and see if this helps with her symptoms. 3. Hypertension. She has a history of hypertension but it has really been well controlled. She has been out of her lisinopril/hydrochlorothiazide for over a month and I am going to add in propranolol so I am going to have her hold her lisinopril/hydrochlorothiazide for now. If there are any further questions or problems she will let us know. Total time spent today with Kaitlin was 30 minutes of which 20 of it was in [id number] coordinationof care and counseling. Ynes Good P.A.-C./[place] Electronically Signed By: NYES GOOD PA-C On: 05/29/2016 08:10 AM Source: [facility] MHSDOLBEYNONRADSYS Document Id: [id number] documented in this encounter Miscellaneous Notes Miscellaneous - Ynes Good P.A.-C. - 05/27/2016 1:24 PM CDT Ambulatory Patient Summary [address] [id number] Visit Information Name: KAITLIN DANIELSON [facility] Number: [id number] Current Date: 05/27/2016 13:24:55 Physicians Attending Provider: YNES GOOD PA-C Primary Care Provider: YNES GOOD PA-C KAITLIN DANIELSON LUPE has been given the following [...] tablet) 1 Tablet(s), Oral, once a day propranolol (propranolol 80 mg oral capsule, extended release) 1 cap, Oral, once a day New Routed [facility] , traMADol (traMADol 50 mg oral tablet) 1 Tablet(s), Oral, every 6 hours as needed for Pain Stop Taking the Following Medications: Medication list as of 05-27-16 13:24 Attention: If you have any medications at home that are not on this list, DO NOT take them until youcontact your provider for clarification. Give a copy of your medication list to your primary care provider. Update your medication list any time medications or doses are changed and carry your medication list at all times in case of emergency. Electronically Signed By: YNES GOOD PA-C Signed On:27-MAY-2016 13:24:48 Your Allergies & Intolerances Substance Reaction Symptoms Category Comments amoxicillin Drug cephalosporins Drug penicillins Drug Ceclor Drug iodine Drug Your Problem List Problem Status Onset Comments Carpal Tunnel Syndrome Active 09/17/2007 Hypertension Active 03/08/2008 Allergic Reaction Active 04/18/2008 Ganglion Cyst Active 01/24/2009 Headache Migraine Active Your Upcoming Appointments Date Time Location Provider 06/26/2016 12:55 [facility] [place] [facility], Aung Aguilar Attention: Contact your local Clinic if further [...] if you dont have one. Go to [email or web address] and click on Create Your Account. Then, follow the directions to complete the online form. Youll be asked for your [facility] number which you can find at the top of this document. Your Goals/Additional instructions: Source: [facility] POWERCHART Document Id: [id number] Miscellaneous - Ynes Good P.A.-C. - 05/27/2016 1:24 PM CDT Ambulatory Discharge Medication List [address] [id number] Visit Information Name: KAITLIN DANIELSON [facility] Number: [id number] Current Date: 05/27/2016 13:24:52 Attending Provider: YNES GOOD PA-C Primary Care Provider: YNES GOOD PA-C KAITLIN DANIELSON [facility] has been given the following [...] tablet) 1 Tablet(s), Oral, once a day propranolol (propranolol 80 mg oral capsule, extended release) 1 cap, Oral, once a day New Routed [facility] , traMADol (traMADol 50 mg oral tablet) 1 Tablet(s), Oral, every 6 hours as needed for Pain Stop Taking the Following Medications: Medication list as of 05-27-16 13:24 Attention: If you have any medications at home that are not on this list, DO NOT take them until youcontact your provider for clarification. Give a copy of your medication list to your primary care provider. Update your medication list any time medications or doses are changed and carry your medication list at all times in case of emergency. Electronically Signed By: YNES GOOD PA-C Signed On:27-MAY-2016 13:24:48 Additional Information: Source: [facility] POWERCHART Document Id: [id number] Miscellaneous - Jana Talamantes L.P.N. - 05/27/2016 11:44 AM CDT Adult Justowriter Operator Intake/History Adult Justowriter Operator Intake/History Entered On: 05/27/2016 11:50 CDT Performed On: 05/27/2016 11:44 CDT by JANA TALAMANTES LPN Intake Chief Complaint : migraine concern and R heel pain Temperature Core : 36.5 DegC(Converted to: 97.7 DegF) Peripheral Pulse Rate : 88 /min Respiratory Rate : 12 /min (LOW) Systolic Blood Pressure : 124 mmHg Diastolic Blood Pressure : 88 mmHg NIBP Mean : 100 mmHg BP Location : Right upper extremity Blood Pressure Cuff Size : Large Height : 158 cm(Converted to: 5 ft 2 inch(es), 62 inch(es)) Actual Weight : 85 kg(Converted to: 187 lb 6 oz) Weight Source : Standing scale Dosing Weight Clinic : 85 kg Clinic BSA : 1.93 Body Mass Index : 34.05 kg/m2 JANA TALAMANTES LPN - 05/27/2016 11:44 CDT General Info Information Given By : Patient Languages : Andorran Is Patient Female and 13-50 no hysterectomy : Yes Status : Patient denies Are you ? : No JANA TALAMANTES LPN - 05/27/2016 11:44 CDT Subjective Pain Symptoms : Yes JANA TALAMANTES LPN - 05/27/2016 11:44 CDT Pain Scale Pain Scale Verbal 0-10 : Open JANA TALAMANTES LPN - 05/27/2016 11:44 CDT Pain Pain Assessment Grid Pain 1 Location : Heel JANA TALAMANTES LPN - 05/27/2016 11:44 CDT Dependent Habits Exposure to Tobacco Smoke : Patient smokes Smoking Status : Current every day smoker Tobacco 2A : Yes Tobacco Use/Currently Using : Yes Tobacco Use/Last 30 Days : Yes Tobacco Use/Last 12 months : Yes Type : Cigarettes: Less than 20 per day Tobacco Use/Advised to Quit : Yes JANA TALAMANTES LPN - 05/27/2016 11:44 CDT Source: [facility] POWERCHART Document Id: [id number]!40 documented in this encounter Plan of Treatment Not on filedocumented as of this encounter Visit Diagnoses Not on filedocumented in this encounter Additional Health Concerns Assessment Noted Time PHQ-9 Depression Total Score: 7 09/12/2014 2:25 PM CDT documented as of this encounter
--- OUTSIDE RECORDS SUMMARY | 2022-01-23 07:21 | XMS_ITS | Encounter Summary ---
:1965 Author Organization [facility] Address [address] [place] [address] Care Team Providers Name Role Phone Unavailable Primary Care Provider Unavailable Encounter Details Date Type Department Care Team Description 04/10/2016 Hospital Encounter HX [facility] Mohan Lawler P.A.-C. [address] [place] [address] (Wo rk) Social History Tobacco Use Types [...] do you attend episcopal or Never 2021 denominational services? Do you [...] Sign Reading Time Taken Comments Blood Pressure - - Pulse - - Temperature - - Respiratory Rate - - Oxygen Saturation - - Inhaled Oxygen Concentration - - Weight - - Height 158 cm (5' 2.21) 04/10/2016 10:03 AM INTAKE MAN Body Mass Index - - documented in this encounter Plan of Treatment Not on filedocumented as of this encounter Procedures Procedure Name Priority Date/Time Associated Comments Diagnosis BI ULTRASOUND BREAST Routine 04/10/2016 10:00 Res ults for this FOCUSED BILATERAL AM INTAKE MAN procedure are in the results section. BI BREAST DIAGNOSTIC Routine 04/10/2016 9:38 AM R esults for this BILATERAL WITH INTAKE MAN procedure are in TOMOSYNTHESIS the results section. documented in this encounter Results BI Ultrasound Breast Focused Bilateral (04/10/2016 10:00 AM INTAKE MAN) Anatomical Region Laterality Modality Breast Bilateral Ultrasound Specimen (Source) Anatomical Collection Method Collection Time Re ceived Time Location / / Volume Laterality 04/10/2016 10:00 AM INTAKE MAN Addenda Addendum by ProviderCarlton M.D. o n 04/10/2016 10:00 AM INTAKE MAN RAD^^^OW US Breast Bilat Limited 04/10/2016 10:00:00 Narrative 04/10/2016 11:38 AM INTAKE MAN Findings ?? impression: Please see today's mammograp hy dictation for ultrasound Procedure Note Keegan Spencer D.O. / ProviderThong M.D. - 07/29/2016 Findings impression: Please see today's mammograp hy dictation for ultrasound Francy Watkins R.V.T., R.D.MFarzanaSFarzana IMG BI PROCEDURES BI Breast Diagnostic Bilateral with Tomosynthesis (04/10/2016 9:38 AM INTAKE MAN) Anatomical Region Laterality Modality Breast Bilateral Mammography Specimen (Source) Anatomical Collection Method Collection Time Re ceived Time Location / / Volume Laterality 04/10/2016 9:38 AM INTAKE MAN Addenda Addendum by ProviderCarlton M.D. o n 04/10/2016 9:38 AM INTAKE MAN RAD^^^OW MA Digital Diag Bilat Mammo w/ Dhaval 04/10/2016 09:38:13 Impressions 04/10/2016 11:37 AM INTAKE MAN 1. Benign findings. ACR code 2 2. Heterogeneously dense breast parenchy ma which lowers the sensitivity for small lesions Narrative 04/10/2016 11:37 AM INTAKE MAN Comparison: 10/11/2015 FINDINGS: Today's examination included b ilateral breast tomography and bilateral whole breast ultrasound There has been no significant change. Breast parenchyma is heterogeneously den se with scattered small asymmetries. Bilateral whole breast ultrasound findin gs are unchanged from before demonstrating multiple subcentimeter cys ts. No worrisome findings. Procedure Note Keegan Spencer D.O. / ProviderThong M.D. - 07/29/2016 Comparison: 10/11/2015 FINDINGS: Today's examination included b ilateral breast tomography and bilateral whole breast ultrasound There has been no significant change. Breast parenchyma is heterogeneously den se with scattered small asymmetries. Bilateral whole breast ultrasound findin gs are unchanged from before demonstrating multiple subcentimeter cys ts. No worrisome findings. IMPRESSION: 1. Benign findings. ACR code 2 2. Heterogeneously dense breast parenchy ma which lowers the sensitivity for small lesions Analilia Le IMG BI PROCEDURES documented in this encounter Visit Diagnoses Not on filedocumented in this encounter Additional Health Concerns Assessment Noted Time PHQ-9 Depression Total Score: 7 09/12/2014 2:25 PM CDT documented as of this encounter
--- OUTSIDE RECORDS SUMMARY | 2022-01-23 07:21 | XMS_ITS | Encounter Summary ---
:1965 Author Organization [facility] Address [address] [place] [address] Care Team Providers Name Role Phone Fausto Good P.A.-C. Primary Care Provider [phone] Reason for Referral Outpatient (Routine) - Closed Specialty Diagnoses / Referred By Contact Referred To Contact Procedures Reproductive Diagnoses [facility] / [address] [place] [phone] Referral ID Status Reason Start Date Expiration Date Visits Requ ested Visits Authorized [id number] Closed 09/26/2017 09/26/2018 1 1 Encounter Details Date Type Department Care Team Description 09/26/2017 Orders Only Department of [facility] Danny Good (Primary Medicine, Hayti Zahra Lambert Dx) Clinic, in [address] [facility] [address] [place], [place] [phone] (Work) [phone] Social History Tobacco Use Types Packs/Day Years [...] do you attend christianity or Never 2021 orthodoxy services? Do you belong to any clubs or No 02/16/2021 organizations such as christianity groups, unions, [employer]Woo! or athletic groups, or school groups? How [...] Type Priority Associated Diagnoses Order S issa Endocrinology - Outpatient Routine Hyperthyroidism Expected: Thyroid disorders Referral 09/26/2017 consult (clinic) (Approximat e), Expires: 09/26/2020 documented as of this encounter Results (ABNORMAL) T4 (Thyroxine), Free (09/29/2017 10:03 AM CDT) P athologist Signature T4 3.1 (H) 0.9 - 1.7 09/29/2017 [facility] (Thyroxine), ng/dL 1:33 PM CDT [facility]- Free, [facility] Comment: Biotin has been identified by the lazarus singh as a potential interfering substance. ??Higher concentr ations of biotin may be found in multivitamins, hair/nail supple ments, and workout supplements. ??If the result does not ma [facility] clinical observations, repeat testing after patient refrains fr om the use of supplements for at least 12 hours. Specimen Anatomical Collection Method Collection Time Receive d Time (Source) Location / / Volume Laterality Blood (Blood, 09/29/2017 10:03 09/29/2017 Venous) AM CDT 12:58 PM CDT Fausto Good P.A.-C. LAB BLOOD ADD-ON Performing Organization Address City/State/ZIP Code Phon e Number [facility] [address] [place] [address] LAB (ABNORMAL) Thyroperoxidase (TPO) Antibodies (09/29/2017 10:03 AM CDT) Component Value Ref Test Analysis Performed At [facility] gist Range Method Time Signature Thyroperoxidase Ab, >800.0 <9.0 09/30/2017 [facility] S (H) IU/mL 8:00 AM CDT [facility] - [facility] Specimen Anatomical Collection Method Collection Time Receive d Time (Source) Location / / Volume Laterality Blood (Blood, 09/29/2017 10:03 09/30/2017 7:10 Venous) AM CDT AM CDT Fausto Good P.A.-C. LAB BLOOD ADD-ON Performing Organization Address City/[facility]/ZIP Code Phon e Number [facility] - [address] [place], [place] [address] [facility] documented in this encounter Visit Diagnoses Diagnosis Hyperthyroidism - Primary documented in this encounter Additional Health Concerns Assessment Noted Time PHQ-9 Depression Total Score: 7 09/12/2014 2:25 PM CDT documented as of this encounter Care Teams Assistant Controller Relationship Specialty Start Date End Date Fausto Good P.A.-C. PCP - General 07/25/[address] [place] [phone] documented as of this encounter
--- OUTSIDE RECORDS SUMMARY | 2022-01-23 07:21 | XMS_ITS | Encounter Summary ---
:1965 Author Organization [facility] Address [address] [place] [address] Care Team Providers Name Role Phone Fausto Good P.A.-C. Primary Care Provider [phone] Encounter Details Date Type Department Care Team Description 12/10/2016 Orders Only Department of Family Fausto Good [facility] Medicine, Mariela Gerardo Diabetes Mellitus Clinic, in [address] [address] [place], [place] [phone] (Work) [phone] Social History Tobacco Use Types Packs/Day Years [...] or relatives? How often do you attend restorationism or Never 2021 mormon services? Do you belong to any clubs or No 02/16/2021 organizations such as restorationism groups, unions, fraternal or athletic groups, or [...] of this encounter Visit Diagnoses Diagnosis Screening Examination Diabetes Mellitus documented in this encounter Additional Health Concerns Assessment Noted Time PHQ-9 Depression Total Score: 7 09/12/2014 2:25 PM CDT documented as of this encounter Care Teams [employer] Delivery Driver Relationship Specialty Start Date End Date Fausto Good P.A.-C. PCP - General 07/25/[address] [place] [phone] documented as of this encounter
--- OUTSIDE RECORDS SUMMARY | 2022-01-23 07:21 | XMS_ITS | Encounter Summary ---
:1965 Author Organization [facility] Address [address] [place] [address] Care Team Providers Name Role Phone Fausto Good P.A.-C. Primary Care Provider [phone] Encounter Details Date Type Department Care Team Description 06/11/2017 Orders Only Department of Family Fausto Good Hy pertension Essential Primary (Primary Dx); Medicine, Mariela Gerardo Screening Mammogram Average Risk Patient Clinic, in [address] [address] [place], [place] [phone] (Work) [phone] Social History Tobacco Use Types Packs/Day Years [...] do you attend adventist or Never 2021 zoroastrian services? Do you [...] or slept in a residential (including now)? Sex Assigned at Date Recorded Female 10/01/2017 7:47 AM CDT documented as of this encounter Plan of Treatment Not on filedocumented as of this encounter Results BI Breast Screening Bilateral (09/26/2017 10:18 AM CDT) Anatomical Region Laterality Modality Breast, Breast Imaging RST LOS Bilateral Mammograp hy Specimen (Source) Anatomical Collection Method Collection Time Re ceived Time Location / / Volume Laterality 09/26/2017 12:27 PM CDT Impressions 09/26/2017 12:29 PM CDT IMPRESSION: ??Negative. RECOMMENDATION: ??Annual Screening Mammo gram ASSESSMENT: ??BI-RADS: 1: Negative. Narrative 09/26/2017 12:29 PM CDT EXAM: ??BI BREAST SCREENING BILATERAL Current study was evaluated with a [employer] Aided Detection (CAD) system. INDICATION: ??Screening mammogram. COMPARISON: ??Prior exams were available for comparison. DENSITY: ??c. The breast(s) are heteroge neously dense, which may obscure small masses. FINDINGS: ??No mammographic findings of malignancy. Procedure Note Kristy Dyson M.D. - 09/26/2017Forma tting of this note might be different from the original. EXAM: BI BREAST SCREENING BILATERAL Current study was evaluated with a [employer] Aided Detection (CAD) system. INDICATION: Screening mammogram. COMPARISON: Prior exams were available f or comparison. DENSITY: c. The breast(s) are heterogene ously dense, which may obscure small masses. FINDINGS: No mammographic findings of ma lignancy. IMPRESSION: Negative. RECOMMENDATION: Annual Screening Mammogr am ASSESSMENT: BI-RADS: 1: Negative. Fausto Good P.A.-C. IMG BI PROCEDURES (ABNORMAL) Glucose, Fasting (09/22/2017 7:59 AM CDT) P athologist Signature Glucose, 115 (H) 70 - 99 09/22/2017 [facility] Fasting, S mg/dL 11:37 AM [facility] Specimen Anatomical Collection Method Collection Time Receive d Time (Source) Location / / Volume Laterality Blood (Blood, 09/22/2017 7:59 AM 09/23/19 18 Venous) CDT 11:03 AM CDT Fausto Good P.A.-C. LAB BLOOD NON ADD-ON Performing Organization Address City/State/ZIP Code Phon e Number [facility] [employer] [address] [place] [address] LAB (ABNORMAL) BMP (Basic Metabolic Panel) (09/22/2017 7:59 AM CDT) Analysis Performed At Patho logist Time Signature Potassium, S 4.4 3.6 - 5.2 09/22/2017 [facility] mmol/L 11:37 AM [facility] Sodium, S 143 135 - 145 09/22/2017 [facility] mmol/L 11:37 AM [facility] Chloride, S 107 98 - 107 09/22/2017 [facility] mmol/L 11:37 AM [facility] Bicarbonate, S 26 22 - 29 09/22/2017 [facility] mmol/L 11:37 AM [facility] Anion Gap 10 7 - 15 09/22/2017 [facility] 11:37 AM [facility] BUN (Blood Urea 21 6 - 21 09/22/2017 [facility] Nitrogen), S mg/dL 11:37 AM [facility] Creatinine 0.55 (L) 0.59 - 09/22/2017 [facility] 1.04 mg/dL 11:37 AM [facility] eGFR-Non >90 >=60 09/22/2017 [facility] Black/ mL/min/BSA 11:37 AM [facility] [place] [facility] Comment: ----ADDITIONAL INFORMATION---- Estimated GFR calculated using the 2009 CKD_EPI creatinine equation. eGFR-Black/ >90 >=60 mL/min/BSA 2017 11:37 [facility] Comment: ----ADDITIONAL INFORMATION---- Estimated GFR calculated using the 2009 CKD_EPI creatinine equation. Calcium, Total, S 10.2 (H) 8.6 - 10.0 mg/dL 09/22/2017 1 1:37 AM [facility] Glucose, S CANCELED mg/dL 09/22/2017 11:03 AM [facility] [place] [facility] Comment: Test not performed. See Fasting Glucose result. Result canceled by the ancillary Specimen Anatomical Collection Method Collection Time Receive d Time (Source) Location / / Volume Laterality Blood (Blood, 09/22/2017 7:59 AM 09/23/19 18 Venous) CDT 11:03 AM CDT Fausto Good P.A.-C. LAB BLOOD ADD-ON Performing Organization Address City/State/ZIP Code Phon e Number [facility] [employer] [address], [place] [address] LAB documented in this encounter Visit Diagnoses Diagnosis Hypertension Essential Primary - Primary Screening Mammogram Average Risk Patient Screening Mammogram Average Risk Patient documented in this encounter Additional Health Concerns Assessment Noted Time PHQ-9 Depression Total Score: 7 09/12/2014 2:25 PM CDT documented as of this encounter Care Teams Cyber Threat Analyst Relationship Specialty Start Date End Date Fausto Good P.A.-C. PCP - General 07/25/[address] [place] [phone] documented as of this encounter
--- OUTSIDE RECORDS SUMMARY | 2022-01-23 07:21 | XMS_ITS | Encounter Summary ---
:1965 Author Organization [facility] Address [address] [place] [address] Care Team Providers Name Role Phone Fausto Good P.A.-C. Primary Care Provider [phone] Encounter Details Date Type Department Care Team Description 09/26/2017 Hospital Encounter Department of Milli Good Mammogram Radiology in [place] [facility] Average Risk Patient [place], [place] [address] [phone] Social History Tobacco Use Types Packs/Day Years [...] do you attend samaritan or Never 2021 restoration services? Do you belong to any clubs [...] Priority Date/Time Associated Comments Diagnosis BI BREAST RAD - Routine 09/26/2017 10:18 Screening Results fo r this SCREENING (most inpatients AM CDT Mammogram Average proced ure are in BILATERAL and all Risk Patient the results outpatients) section. documented in this encounter Results BI [...] BILATERAL Current study was evaluated with a Compu [...] BILATERAL Current study was evaluated with a SkyCacheu ter Aided Detection (CAD) system. INDICATION: Screening [...] documented as of this encounter Care Teams Case Filler Relationship Specialty Start Date End Date Fausto Good P.A.-C. PCP - General 07/25/[address] [place] [phone] documented as of this encounter
--- OUTSIDE RECORDS SUMMARY | 2022-01-23 07:21 | XMS_ITS | Encounter Summary ---
:1965 Author Organization [facility] Address [address] [place] [address] Care Team Providers Name Role Phone Unavailable Primary Care Provider Unavailable Encounter Details Date Type Department Care Team Description 04/05/2015 Hospital Encounter HX [facility] Dann Castrejon M.D. [address] [place], [place] [phone] (Wo rk) Social History Tobacco Use Types [...] do you attend gnosticism or Never 2021 yazidism services? Do you [...] - - Height 158 cm (5' 2.21) 04/05/2015 8:46 AM HOSPITALITY DIRECTOR Body Mass Index - - documented in this encounter Progress Notes Zeferino Walters M.D. - 04/05/2015 8:43 AM CST [id number] The documentation for this visit is available in [employer] IMPRESSION/REPORT/PLAN #1 Myopia and presbyopia both eyes. #2 Cataracts, nuclear both eyes. Early stage. PlaN: U/v protection. Update glasses. F/u one to two years. CE/ref Zeferino Walters M.D./ab Electronically Signed By: ZEFERINO WALTERS MD On: 04/17/2015 07:49 AM Source: [facility] MHSDOLBEYNONRADSYS Document Id: [id number] ITALITY DIRECTOR documented in this encounter Miscellaneous Notes Telephone Encounter - Odalis Rodriguez, L.P.N. - 09/04/2015 4:33 PM CDT needs tramadol refill Document Contains Addenda Addendum by ODALIS RDORIGUEZ LPN on September 05, 2015 09:22:26 CDT prescription faxed to pharmacy and patient called and notified Addendum by SO RICO MD on September 04, 2015 18:06:23 CDT From: SO RICO MD To: MAGALYS Good Nurse; Sent: 09/04/2015 18:06:23 CDT Subject: RE: needs tramadol refill I sent rx for 20 tabs. That's it. She needs pain management reviewed. From: ODALIS RODRIGUEZ LPN (MAGALYS Good Nurse) To: SO RICO MD; Sent: 09/04/2015 16:33:50 CDT ! Subject: needs tramadol refill Caller is: ( x ) Patient ( ) Mother ( ) Father ( ) Spouse ( ) Daughter ( ) Son ( ) Pharmacy ( ) Other: Physician: Patient MRN #: Reason for Call: patient calling stated she has been calling since fri to get medication tramadol 50mg po 1 tab every 6 hours as needed for pain refilled . patient is leaving on 09/04/2014 in the early am and will not return until 09/10/2015 in the evening and is completly out of her medication and stated she is going through withdrawl and can not work with out it. last refill was on 08/10/2015 for 50 tabs. please send prescription to [facility] in [place] patient has a appt scheduled for 11/02/2015with wicho good. call patient when prescription has been faxed Message: Advice/Action: Source used: ( ) Verbalizes understanding of instructions ( ) Instructed to call back if symptoms worsen or do not resolve ( ) Refused to see provider ( ) Appointment Scheduled ( ) OK to leave message on voice mail ( ) Patient told to expect return call: ( ) today ( ) tomorrow ( ) next work day ( ) Patient's email ( ) Patient told physician out of office, will call upon return call on ( ) ( ) Patient told physician out of office, routed to other physician ( ) Other ( ) Call back telephone number ( ) Call back cell phone number ( ) Source: [facility] POWERCHART Document Id: [id number] Electronically signed by Conversion, [facility] Spray Drier Operator Helper [id number] at 07/06/2016 8:29 AM CDT Telephone Encounter - Conversion, Historical Provider Ser - 09/04/2015 8:34 AM CDT *Phone Message Document Contains Addenda Addendum by JANA TALAMANTES LPN on September 13, 2015 11:49:00 CDT notified script faxed to [facility] Addendum by YNES GOOD PA-C on September 13, 2015 11:05:41 CDT From: YNES GOOD PA-C To: MAGALYS Good Nurse; Sent: 09/13/2015 11:05:41 CDT Subject: RE: *Phone Message I called in 50 tabs Addendum by JANA TALAMANTES LPN on September 11, 2015 13:45:55 CDT From: JANA TALAMANTES LPN (MAGALYS Good Nurse) To: YNES GOOD PA-C; Sent: 09/11/2015 13:45:55 CDT Subject: FW: *Phone Message Addendum by JANA TALAMANTES LPN on September 11, 2015 13:45:47 CDT notified Hannah that Ynes would be in morning and I would make sure this is addressed right away, she is scheduled the end of the month to see you, its the only time that works with her schedule.... Addendum by DENISE ÁLVAREZ on September 11, 2015 13:40:43 CDT patient called back- only recieved enough for 5 days- is out -has an appt. for 8-- needs more until appt- knows is out- would like a call today- call her at [phone] Addendum by ODALIS RODRIGUEZ LPN on September 04, 2015 16:46:15 CDT patient requesting medication tramadol Addendum by ELISHA RIVERA on September 04, 2015 12:11:38 CDT Pt calling back. Please call her at [phone] Addendum by JEAN EVANS on September 04, 2015 10:29:23 CDT Patient returned your call, please call again [phone] From: CHENTE ENAMORADO (MAGALYS Good Nurse) To: MAGALYS Good Nurse; Sent: 09/04/2015 08:34:28 CDT Subject: *Phone Message Caller is: ( x ) Patient ( ) Mother ( ) Father ( ) Spouse ( ) Daughter ( ) Son ( ) Pharmacy ( ) Other: Physician: Patient MRN #: Reason for Call: Message: Patient called, she would like a call back as soon as possible - [phone] Advice/Action: Source used: ( ) Verbalizes understanding of instructions ( ) Instructed to call back if symptoms worsen or do not resolve ( ) Refused to see provider ( ) Appointment Scheduled ( ) OK to leave message on voice mail ( ) Patient told to expect return call: ( ) today ( ) tomorrow ( ) next work day ( ) Patient's email ( ) Patient told physician out of office, will call upon return call on ( ) ( ) Patient told physician out of office, routed to other physician ( ) Other ( ) Call back telephone number ( ) Call back cell phone number ( ) Source: [facility] [employer] Document Id: [id number] Miscellaneous - Zeferino Walters M.D. - 04/05/2015 10:12 AM CST Ambulatory Patient Summary [address] [id number] Visit Information Name: HANNAH COONEY [facility] Number: [id number] Current Date: 04/05/2015 10:12:01 Physicians Attending Provider: ZEFERINO WALTERS MD Primary Care Provider: YNES GOOD PA-C HANNAH COONEY has been given the following list of follow-up instructions, medication list, and patient education materials: Follow-up Instructions Your [...] every 6 hours as needed for Pain x 30 day(s) Stop Taking the Following Medications: Medication list as of 04-05-15 10:12 Attention: If you have any medications at home that are not on this list, DO NOT take them until youcontact your provider for clarification. Give a copy of your medication list to your primary care provider. Update your medication list any time medications or doses are changed and carry your medication list at all times in case of emergency. Electronically Signed By: ZEFERINO WALTERS MD Signed On:05-APR-2015 10:11:55 Your Allergies & Intolerances Substance Reaction Symptoms Category Comments amoxicillin Drug cephalosporins Drug penicillins Drug Ceclor Drug iodine Drug Your Problem List Problem Status Onset Comments Carpal Tunnel Syndrome Active 09/17/2007 Hypertension Active 03/08/2008 Allergic Reaction Active 04/18/2008 Ganglion Cyst Active 01/24/2009 Headache Migraine Active Your Upcoming Appointments Date Time Location Provider No Appointments found Attention: Contact your local Clinic if further [...] if you dont have one. Go to [email or web address] and click on Create Your Account. Then, follow the directions to complete the online form. Youll be asked for your [facility] number which you can find at the top of this document. Your Goals/Additional instructions: Source: [facility] POWERCHART Document Id: [id number] ITALITY DIRECTOR Miscellaneous - Zeferino Walters M.D. - 04/05/2015 10:12 AM CST Ambulatory Discharge Medication List [facility] [address] [facility] [place] [id number] Visit Information Name: HANNAH COONEY [facility] Number: [id number] Visit Date: 04/05/2015 10:12:00 Attending Provider: ZEFERINO WALTERS MD Primary Care Provider: YNES GOOD PA-C HANNAH COONEY has been given the following list of [...] every 6 hours as needed for Pain x 30 day(s) Stop Taking the Following Medications: Medication list as of 04-05-15 10:12 Attention: If you have any medications at home that are not on this list, DO NOT take them until youcontact your provider for clarification. Give a copy of your medication list to your primary care provider. Update your medication list any time medications or doses are changed and carry your medication list at all times in case of emergency. Electronically Signed By: ZEFERINO WALTERS MD Signed On:05-APR-2015 10:11:55 Additional Information: Source: [facility] POWERCHART Document Id: [id number] ITALITY DIRECTOR documented in this encounter Plan of Treatment Not on filedocumented as of this encounter Visit Diagnoses Not on filedocumented in this encounter Additional Health Concerns Assessment Noted Time PHQ-9 Depression Total Score: 7 09/12/2014 2:25 PM CDT documented as of this encounter
--- OUTSIDE RECORDS SUMMARY | 2022-01-23 07:21 | XMS_ITS | Encounter Summary ---
:1965 Author Organization [facility] Address [address] [place] [address] Care Team Providers Name Role Phone Unavailable Primary Care Provider Unavailable Encounter Details Date Type Department Care Team Description 10/02/2015 Hospital Encounter HX [facility] FB Fausto Hathaway P.A.-C. [address] [place] [address] (Wo rk) Social History [...] or relatives? How often do you attend lutheran or Never 2021 jehovah's witness services? Do you belong to any clubs or No 02/16/2021 organizations such as lutheran groups, unions, fraternal or athletic groups, or [...] - - Height 158 cm (5' 2.21) 10/02/2015 11:26 AM CDT Body Mass Index - - documented in this encounter Plan of Treatment Not on filedocumented as of this encounter Procedures Procedure Name Priority Date/Time Associated Diagnosis Comme nts BI BREAST SCREENING Routine 10/02/2015 11:54 AM R esults for this BILATERAL CDT procedure are i n the results section. documented in this encounter Results BI Breast Screening Bilateral (10/02/2015 11:54 AM CDT) Anatomical Region Laterality Modality Breast Bilateral Mammography Specimen (Source) Anatomical Collection Method Collection Time Re ceived Time Location / / Volume Laterality 10/02/2015 11:54 AM CDT Addenda Addendum by Provider, Latrice Vincent 10/02/2015 11:54 AM CDT RAD^^^OW MA Mammo Screening w ??CADD 10/02/2015 11:54:00 Impressions 10/02/2015 4:02 PM CDT ??Incomplete. ??Need additional imaging evaluation. RECOMMENDATION: ??The Radiology Departme nt will contact the patient and schedule the indicated additional im aging. ??A separate report will be issued as soon as possible, incl uding final recommendations. BI-RADS ASSESSMENT: ??BI-RADS 0 - NEEDS ADDITIONAL IMAGING EVALUATION The appropriate letter will be sent to t muriel patient. Narrative 10/02/2015 4:02 PM CDT EXAM: MA Mammo Screening w/ CADD INDICATION: screening ? AGE: 50 years-old Computer-aided detection equipment was u sed during interpretation. COMPARISON: Prior examinations dating ba ck to 06/30/2006. DENSITY: ??c. The breasts are heterogeno usly dense, which may obscure small masses. FINDINGS: ??There is a focal asymmetry i n the slightly lower, inner left breast, middle to posterior depth. There are also 2 focal asymmetries in the upper outer right daly ast area and Procedure Note Kristy Dyson M.D. / Provider, Estefania marcum M.D. - 06/15/2016 EXAM: MA Mammo Screening w/ CADD INDICATION: screening AGE: 50 years-old Computer-aided detection equipment was u sed during interpretation. COMPARISON: Prior examinations dating ba ck to 06/30/2006. DENSITY: c. The breasts are heterogenous ly dense, which may obscure small masses. FINDINGS: There is a focal asymmetry in the slightly lower, inner left breast, middle to posterior depth. There are also 2 focal asymmetries in the upper outer right daly ast area and IMPRESSION: Incomplete. Need additional imaging evaluation. RECOMMENDATION: The Radiology Department will contact the patient and schedule the indicated additional im aging. A separate report will be issued as soon as possible, incl uding final recommendations. BI-RADS ASSESSMENT: BI-RADS 0 - NEEDS AD DITIONAL IMAGING EVALUATION The appropriate letter will be sent to t he patient. Claudette Turcios(R), RFarzanaTFarzana(R)(M) IMG BI PROCEDURES documented in this encounter Visit Diagnoses Not on filedocumented in this encounter Additional Health Concerns Assessment Noted Time PHQ-9 Depression Total Score: 7 09/12/2014 2:25 PM CDT documented as of this encounter
--- OUTSIDE RECORDS SUMMARY | 2022-01-23 07:21 | XMS_ITS | Encounter Summary ---
:1965 Author Organization [facility] Address [address] [place] [address] Care Team Providers Name Role Phone Fausto Good P.A.-C. Primary Care Provider [phone] Reason for Visit Reason Onset Date Comments Colonoscopy 09/26/2017 Encounter Details Date Type Department Care Team Description 09/26/2017 Clinical Communication Department of Fausto Lam, Colonoscopy Medicine, [facility], in [address] [address] [place], [place] [phone] [address] (Work) [phone] Social History Tobacco Use Types Packs/Day Years [...] do you attend adventist or Never 2021 hoahaoism services? Do you [...] this encounter Miscellaneous Notes Telephone Encounter - Corie Davis L.P.N. - 10/17/2017 1:59 PM CDT Still has not found yet. Will call once she finds out. Telephone Encounter - Corie Davis L.P.N. - 09/29/2017 11:18 AM CDT Patient is checking with insurance to see if [facility] is in network. Will call back once she finds outto schedule. documented in this encounter Plan of Treatment Not on filedocumented as of this encounter Visit Diagnoses Not on filedocumented in this encounter Additional Health Concerns Assessment Noted Time PHQ-9 Depression Total Score: 7 09/12/2014 2:25 PM CDT documented as of this encounter Care Teams Integrity Engineer Relationship Specialty Start Date End Date Fausto Good P.A.-C. PCP - General 07/25/[address] [place] [address] documented as of this encounter
--- OUTSIDE RECORDS SUMMARY | 2022-01-23 07:21 | XMS_ITS | Encounter Summary ---
:1965 Author Organization [facility] Address [address] [place] [address] Care Team Providers Name Role Phone Unavailable Primary Care Provider Unavailable Encounter Details Date Type Department Care Team Description 10/06/2015 Hospital Encounter HX [facility] Mohan Good P.A.-C. [address] [place] [address] (Wo rk) Social History [...] or relatives? How often do you attend hoahaoism or Never 2021 church services? Do you belong to any clubs or No 02/16/2021 organizations such as hoahaoism groups, unions, fraternal or athletic groups, or [...] - - Height 158 cm (5' 2.21) 10/06/2015 8:01 AM CDT Body Mass Index - - documented in this encounter Plan of Treatment Not on filedocumented as of this encounter Visit Diagnoses Not on filedocumented in this encounter Additional Health Concerns Assessment Noted Time PHQ-9 Depression Total Score: 7 09/12/2014 2:25 PM CDT documented as of this encounter
--- OUTSIDE RECORDS SUMMARY | 2022-01-23 07:21 | XMS_ITS | Encounter Summary ---
:1965 Author Organization [facility] Address [address] [place] [address] Care Team Providers Name Role Phone Unavailable Primary Care Provider Unavailable Encounter Details Date Type Department Care Team Description 10/13/2015 Hospital Encounter HX [facility] Mohan Good P.A.-C. [address] [place] [address] (Wo rk) Social History Tobacco [...] do you attend yazidi or Never 2021 amish services? Do you [...] Sign Reading Time Taken Comments Blood Pressure 114/74 10/13/2015 8:04 AM CDT Pulse 72 10/13/2015 8:04 AM CDT Temperature - - Respiratory Rate 16 10/13/2015 8:04 AM CDT Oxygen Saturation - - Inhaled Oxygen Concentration - - Weight 85 kg (187 lb 6.3 oz) 10/13/2015 8:04 AM CDT Height 158 cm (5' 2.21) 10/13/2015 8:04 AM CDT Body Mass Index 34.05 10/13/2015 8:04 AM CDT documented in this encounter Progress Notes Ynes Good P.A.-C. - 10/13/2015 7:53 AM CDT [id number] CHIEF COMPLAINT/REASON FOR VISIT Follow up of her history and physical exam. HISTORY OF PRESENT ILLNESS Kaitlin is a pleasant 50-year-old female who I recently saw for history and physical. Her Pap smear is not back yet. Her labs came back showing a slightly elevated blood glucose but otherwise no significant abnormalities. Reviewed these today. Her mammogram showed an abnormality. She had an ultrasound and is due for another one in 6 months. She will keep an eye on this. We did a lumbar spine x-ray showing some disc desiccation. She has chronic low back pain. She has got an appointment with Dr. Delaney in over a month. She has been doing lots of work lately and has been under some stress but otherwise feels okay. VITAL SIGNS Noted in the electronic medical record. PHYSICAL EXAMINATION In general, she appears in no acute distress. No further physical examination was done today. IMPRESSION/REPORT/PLAN 1. Elevated fasting blood glucose. We will recheck a hemoglobin A1c next year. We will keep an eye on this. She is going to work on her weight loss and this will hopefully improve with this. It was notsignificantly elevated. I think we can wait and recheck it next year. 2. Hypertension. We renewed her lisinopril/hydrochlorothiazide. She will continue on this. 3. Chronic back pain. I told her I wanted her to try to avoid using the tramadol chronically. We talked about the possibility of Cymbalta versus gabapentin. For now, I am going to wait and see what thinks about her back pain and proceed as necessary. This has been a chronic issue for her. She use to take Flexeril regularly but now has gotten off of that. If there is any further questions orany problems, she will let us know. Otherwise, follow up as scheduled. Ynes Good PA-C/[place] Electronically Signed By: YNES GOOD PA-C On: 10/13/2015 12:41 PM Source: [facility] MHSDOLBEYNONRADSYS Document Id: [id number] documented in this encounter Miscellaneous Notes Miscellaneous - Ynes Good P.A.-C. - 10/13/2015 8:43 AM CDT Ambulatory Patient Summary [address] [id number] Visit Information Name: KAITLIN DANIELSON [facility] Number: [id number] Current Date: 10/13/2015 08:43:04 Physicians Attending Provider: YNES GOOD PA-C Primary Care Provider: YNES GOOD PA-C KAITLIN DANIELSON has been given the following list [...] the Following Medications: Medication list as of 10-13-15 08:43 Attention: If you have any medications at [...] Electronically Signed By: YNES GOOD PA-C Signed On:13-OCT-2015 08:42:54 Your Allergies & Intolerances Substance Reaction Symptoms Category Comments amoxicillin Drug cephalosporins Drug penicillins Drug Ceclor Drug iodine Drug Your Problem List Problem Status Onset Comments Carpal Tunnel Syndrome Active 09/17/2007 Hypertension Active 03/08/2008 Allergic Reaction Active 04/18/2008 Ganglion Cyst Active 01/24/2009 Headache Migraine Active Your Upcoming Appointments Date Time Location Provider 11/27/2015 09:15 [facility] Rhett [facility]OM, Nabil Peña 04/10/2016 09:30 [facility] Mammo [facility] Room 2 04/10/2016 10:00 [facility] Room 1 Attention: Contact your local Clinic [...] if you dont have one. Go to [email or web address] and click on Create Your Account. Then, follow the directions to complete the online form. Youll be asked for your [facility] number which you can find at the top of this document. Your Goals/Additional instructions: Source: [facility] POWERCHART Document Id: [id number] Miscellaneous - Ynes Good P.A.-C. - 10/13/2015 8:43 AM CDT Ambulatory Discharge Medication List [address] [id number] Visit Information Name: KAITLIN DANIELSON [facility] Number: [id number] Visit Date: 10/13/2015 08:43:03 Attending Provider: YNES GOOD PA-C Primary Care Provider: YNES GOOD PA-C AMELIA EVERARDOKAITLIN Gardner has been given the following list of [...] the Following Medications: Medication list as of 10-13-15 08:43 Attention: If you have any medications at [...] Electronically Signed By: YNES GOOD PA-C Signed On:13-OCT-2015 08:42:54 Additional Information: Source: [facility] POWERCHART Document Id: [id number] Miscellaneous - Jana Talamantes L.P.N. - 10/13/2015 8:04 AM CDT Adult Outside Sales Professional Intake/History Adult Outside Sales Professional Intake/History Entered On: 10/13/2015 8:08 CDT Performed On: 10/13/2015 8:04 CDT by JANA TALAMANTES LPN Intake Chief Complaint : f/u with results Temperature Core : 36.4 DegC(Converted to: 97.5 DegF) (LOW) Peripheral Pulse Rate : 72 /min Respiratory Rate : 16 /min Systolic Blood Pressure : 114 mmHg Diastolic Blood Pressure : 74 mmHg NIBP Mean : 87 mmHg BP Location : Left upper extremity Blood Pressure Cuff Size : Large Height : 158 cm(Converted to: 5 ft 2 inch(es), 62 inch(es)) Actual Weight : 85 kg(Converted to: 187 lb 6 oz) Weight Source : Standing scale Dosing Weight Clinic : 85 kg Clinic BSA : 1.93 Body Mass Index : 34.05 kg/m2 JANA TALAMANTES LPN - 10/13/2015 8:04 CDT General Info Information Given By : Patient Languages : Czech Is Patient Female and 13-50 no hysterectomy : Yes Status : Patient denies Are you ? : No JANA TALAMANTES LPN - 10/13/2015 8:04 CDT Subjective Pain Symptoms : No JANA TALAMANTES LPN - 10/13/2015 8:04 CDT Dependent Habits Exposure to Tobacco Smoke : Patient smokes Smoking Status : Current every day smoker Tobacco 2A : Yes Tobacco Use/Currently Using : Yes Tobacco Use/Last 30 Days : Yes Tobacco Use/Last 12 months : Yes Type : Cigarettes: Less than 20 per day Tobacco Use/Advised to Quit : Yes JANA TALAMANTES LPN - 10/13/2015 8:04 CDT Source: [facility] POWERCHART Document Id: [id number] CDT!34 documented in this encounter Plan of Treatment Not on filedocumented as of this encounter Visit Diagnoses Not on filedocumented in this encounter Additional Health Concerns Assessment Noted Time PHQ-9 Depression Total Score: 7 09/12/2014 2:25 PM CDT documented as of this encounter
--- OUTSIDE RECORDS SUMMARY | 2022-01-23 07:21 | XMS_ITS | Encounter Summary ---
:1965 Author Organization [facility] Address [address] [place] [address] Care Team Providers Name Role Phone Unavailable Primary Care Provider Unavailable Encounter Details Date Type Department Care Team Description 03/06/2016 Hospital Encounter HX [facility] Sagar Delaney M.D. [address] [place] [address], [address] [place] [address] (Wo rk) Social History Tobacco [...] do you attend voodoo or Never 2021 orthodoxy services? Do you [...] slept in a long term (including now)? Sex Assigned at Date Recorded Female 10/01/2017 7:47 AM CDT documented as of this encounter Last Filed Vital Signs Vital Sign Reading Time Taken Comments Blood Pressure 118/82 03/06/2016 10:06 AM CHANNEL MACHINE OPERATOR Pulse - - Temperature - - Respiratory Rate - - Oxygen Saturation - - Inhaled Oxygen Concentration - - Weight 85.9 kg (189 lb 6 oz) 03/06/2016 10:06 AM CHANNEL MACHINE OPERATOR Height 158 cm (5' 2.21) 03/06/2016 10:06 AM CHANNEL MACHINE OPERATOR Body Mass Index 34.41 03/06/2016 10:06 AM CHANNEL MACHINE OPERATOR documented in this encounter Procedure Notes Arsh Delaney M.D. - 03/06/2016 12:00 AM CST 1RPT DIAGNOSIS Bilateral carpal tunnel syndrome. HISTORY/INDICATION: Please see my clinical note dated 11/27/2015 as well as my miscellaneous note dated 12/27/2015 for details of the HPI. PROCEDURE PERFORMED: 1. Ultrasound-guided right carpal tunnel corticosteroid injection. 2. Ultrasound-guided left carpal tunnel corticosteroid injection. PATIENT EDUCATION: Ready to learn. No apparent learning barriers were identified. Learning preferences include listening. Explained diagnosis and treatment of plan. The patient expressed understanding of the content. Following denial of allergy and review of potential side effects and complications including but notnecessarily limited to infection, allergic reaction, local tissue breakdown, systemic effects of corticosteroids, elevation of blood glucose, injury to soft tissues and/or nerves and seizure, the patient indicated understanding and agreed to proceed. Signed informed consent was obtained. The use of direct ultrasound visualization of the needle (rather than a non- guided injection) was required to increase patient safety by excluding inadvertent intramuscular or intratendinous placement and minimizing bleeding by avoiding osteochondral or vascular injury from the needle. Additionally, the increased accuracy of placement may increase clinical effectiveness and will allow higher diagnostic specificity when evaluating effectiveness of this injection. DESCRIPTION OF PROCEDURE: Ultrasound-guided right carpal tunnel corticosteroid injection. Prior to starting the procedure, a pause was performed to confirm the patients name, affected area and proposed procedure. The patient was placed in a supine position. Next, an optimal, ultrasound image of the right median nerve at the level of the pisiform was obtained with a 12-5 linear array transducer. A preprocedure image was saved to the hard drive. Following this, the area was prepped with a ChloraPrep scrub x2, then re-examined using the same transducer, a sterile ultrasound transducer cover, and sterile ultrasound transducer gel. Real time ultrasound was used to guide a 27 gauge 1-1/4 inchneedle into the carpal tunnel using an ulnar to radial approach in plane with the transducer. After visualization of the tip in the target area and negative aspiration for blood, 1 mL of Celestone was delivered to the target area while observing injectate flow with real time ultrasonographic imaging. The injectate was delivered without complications. DESCRIPTION OF PROCEDURE: Ultrasound-guided left carpal tunnel corticosteroid injection. Prior to starting the procedure, a pause was performed to confirm the patients name, affected area and proposed procedure. The patient was placed in a supine position. Next, an optimal, ultrasound image of the left median nerve at the level of the pisiform was obtained with a 12-5 linear array transducer. A preprocedure image was saved to the hard drive. Following this, the area was prepped with a ChloraPrep scrub x2, then re-examined using the same transducer, a sterile ultrasound transducer cover,and sterile ultrasound transducer gel. Real time ultrasound was used to guide a 27 gauge 1-1/4 inch needle into the carpal tunnel using an ulnar to radial approach in plane with the transducer. After visualization of the tip in the target area and negative aspiration for blood, 1 mL of Celestone was delivered to the target area while observing injectate flow with real time ultrasonographic imaging. The injectate was delivered without complications. The patient tolerated the procedure well. She was observed for an appropriate amount of time and discharged under her own power. She was given my card and instructed to contact me with any questions pertaining to the injection. She was also instructed that should she experience any fever, chills, excessive redness at the injection site, or numbness or weakness, she should phone me immediately. She was instructed that she should use ice over the area of injection, and limit activity for the rest of the day. ADDITIONAL INSTRUCTIONS: Ms. Jovany Kahn will be in contact with us if she has any difficulty following todays procedure. Otherwise, we will plan on being in contact with her over the phone in two weeks to assess her progress. She voiced agreement and understanding with this plan. Arsh Delaney M.D./[place] Electronically Signed By: ARSH DELANEY MD On: 03/07/2016 01:33 PM Modified by and Electronically Signed by: ARSH DELANEY MD On: 03/07/2016 01:33 PM Source: [facility] [email or web address] Document Id: [id number] NEL MACHINE OPERATOR documented in this encounter Nursing Notes Kristal Stern L.P.N. - 04/15/2016 2:19 PM CST carpal tunnel Patient wants to wait until fall to talk about surgery. Electronically Signed By: KRISTAL STERN LPN On: 04/15/2016 02:20 PM Source: [facility] POWERCHART Document Id: [id number] NEL MACHINE OPERATOR documented in this encounter Miscellaneous Notes Miscellaneous - Kristal Stern L.P.N. - 03/06/2016 10:08 AM CST Reminder Msg Document Contains Addenda Addendum by KRISTAL STERN LPN on April 11, 2016 15:07:29 CHANNEL MACHINE OPERATOR From: KRISTAL STERN LPN ( Physical Medicine and Rehabilitation Staff) To: ARSH DELANEY MD; Sent: 04/11/2016 15:07:29 CHANNEL MACHINE OPERATOR Show up: 04/11/2016 15:07:00 CHANNEL MACHINE OPERATOR Subject: RE: Reminder Msg Spoke with patient. She states that she had relief for a couple of weeks but now pain is the same asbefore injections. Addendum by KRISTAL STERN LPN on March 28, 2016 12:49:44 CHANNEL MACHINE OPERATOR Left message for patient to return call. Addendum by KRISTAL STERN LPN on March 21, 2016 16:15:27 CHANNEL MACHINE OPERATOR Left message for patient to return call. From: KRISTAL STERN LPN To: [facility] Staff; Sent: 03/06/2016 10:08:21 CHANNEL MACHINE OPERATOR Show up: 03/20/2016 10:08:00 CHANNEL MACHINE OPERATOR Subject: Reminder Msg Please Remember to: call patient to see how she is doing after bilateral carpal tunnel injections. PATIENT: ( ) Call Patient ( ) Ask Patient to ( ) ( ) Call Relative ( ) Schedule Patient ( ) ( ) Call for Manager Ambulatory ( ) Follow up on Results ( ) Other: PROVIDER: ( ) Call Physician ( ) Call Pharmacist ( ) Call Lab ( ) Other: Special Instructions: Comments: Source: [facility] POWERCHART Document Id: [id number] Electronically signed by Conversion, [facility] Research Chief Engineer [id number] at 07/23/2016 2:46 AM CDT Miscellaneous - Kristal Stern LFarzanaPFarzanaN. - 03/06/2016 10:06 AM CST Adult Masonry Supervisor Intake/History Adult Masonry Supervisor Intake/History Entered On: 03/06/2016 10:07 CHANNEL MACHINE OPERATOR Performed On: 03/06/2016 10:06 CHANNEL MACHINE OPERATOR by KRISTAL STERN LPN Intake Systolic Blood Pressure : 118 mmHg Diastolic Blood Pressure : 82 mmHg NIBP Mean : 94 mmHg BP Location : Left upper extremity Blood Pressure Cuff Size : Regular Height : 158 cm(Converted to: 5 ft 2 inch(es), 62 inch(es)) Actual Weight : 85.9 kg(Converted to: 189 lb 6 oz) Dosing Weight Clinic : 85.9 kg Clinic BSA : 1.94 Body Mass Index : 34.41 kg/m2 KRISTAL STERN LPN - 03/06/2016 10:06 CHANNEL MACHINE OPERATOR General Info Information Given By : Patient Languages : [place] Is Patient Female and 13-50 no hysterectomy : Yes Status : Patient denies Are you ? : No KRISTAL STERN LPN - 03/06/2016 10:06 CHANNEL MACHINE OPERATOR Subjective Pain Symptoms : No KRISTAL STERN LPN - 03/06/2016 10:06 CHANNEL MACHINE OPERATOR Dependent Habits Exposure to Tobacco Smoke : Patient smokes Smoking Status : Current every day smoker Tobacco 2A : Yes Tobacco Use/Currently Using : Yes Tobacco Use/Last 30 Days : Yes Tobacco Use/Last 12 months : Yes Type : Cigarettes: Less than 20 per day Tobacco Use/Advised to Quit : Yes KRISTAL STERN LPN - 03/06/2016 10:06 CHANNEL MACHINE OPERATOR Source: [facility] POWERCHART Document Id: [id number] CHANNEL MACHINE OPERATOR!29 NEL MACHINE OPERATOR Miscellaneous - Arsh Delaney M.D. - 03/06/2016 9:51 AM CST Ambulatory Patient Summary [address] [id number] Visit Information Name: KAITLIN DANIELSON [facility] Number: [id number] Current Date: 03/06/2016 09:51:09 Physicians Attending Provider: ARSH DELANEY MD Primary Care Provider: YNES VASQUEZ PA-C KAITLIN DANIELSON has been given the [...] the Following Medications: Medication list as of 03-06-16 09:51 Attention: If you have any medications at [...] Electronically Signed By: ARSH DELANEY MD Signed On:06-MAR-2016 09:50:58 Your Allergies & Intolerances Substance Reaction Symptoms Category Comments amoxicillin Drug cephalosporins Drug penicillins Drug Ceclor Drug iodine Drug Your Problem List Problem Status Onset Comments Carpal Tunnel Syndrome Active 09/17/2007 Hypertension Active 03/08/2008 Allergic Reaction Active 04/18/2008 Ganglion Cyst Active 01/24/2009 Headache Migraine Active Your Upcoming Appointments Date Time Location Provider 04/10/2016 09:30 [facility] Mammo [facility] Room 2 04/10/2016 10:00 [facility] Ultrasound [facility] Room 1 Attention: Contact your local [...] if you dont have one. Go to [email or web address] and click on Create Your Account. Then, follow the directions to complete the online form. Youll be asked for your [facility] number which you can find at the top of this document. Your Goals/Additional instructions: Source: [facility] POWERCHART Document Id: [id number] NEL MACHINE OPERATOR Miscellaneous - Arsh Delaney M.D. - 03/06/2016 9:51 AM CST Ambulatory Discharge Medication List [address] [id number] Visit Information Name: KAITLIN DANIELSON [facility] Number: [id number] Current Date: 03/06/2016 09:51:08 Attending Provider: ARSH DELANEY MD Primary Care Provider: YNES VASQUEZ PA-C KAITLIN DANIELSON LUPE has been given [...] the Following Medications: Medication list as of 03-06-16 09:51 Attention: If you have any medications at [...] Electronically Signed By: ARSH DELANEY MD Signed On:06-MAR-2016 09:50:58 Additional Information: Source: [facility] POWERCHART Document Id: [id number] NEL MACHINE OPERATOR documented in this encounter Plan of Treatment Not on filedocumented as of this encounter Visit Diagnoses Not on filedocumented in this encounter Additional Health Concerns Assessment Noted Time PHQ-9 Depression Total Score: 7 09/12/2014 2:25 PM CDT documented as of this encounter
--- OUTSIDE RECORDS SUMMARY | 2022-01-23 07:21 | XMS_ITS | Encounter Summary ---
:1965 Author Organization [facility] Address [address] [place] [address] Care Team Providers Name Role Phone Fausto Good P.A.-C. Primary Care Provider [phone] Reason for Referral Outpatient (Routine) - Closed Specialty Diagnoses / Procedures Referred By Contact Refer red To Contact Family Medicine Fausto Good P. A.-C. [facility] [address] [place] [address] Referral ID Status Reason Start Date Expiration Date Visits Requ ested Visits Authorized [id number] Closed 09/26/2017 09/26/2018 1 1 Reason for Visit Reason Comments Annual Exam can't sleep Appointment Request (Routine) - Closed Specialty Diagnoses / Procedures Referred By Contact Refer vik To Contact Family Medicine Referral ID Status Reason Start Date Expiration Date Visits Requ ested Visits Authorized [id number] Closed 08/25/2017 08/25/2018 1 Encounter Details Date Type Department Care Team Description 09/26/2017 Comprehensive Visit Department of Henry Good Cancer Colon (Primary Dx); Fausto Gallagher Screening [facility] Diabetes Mellitus; in [address] Iron Deficiency Anemia Screening Exam; [place], [place] Encounter For Screening For Cardiovascular Disorders; [address] [address] Loss Weight [place], [place] [phone] (Work) [phone] Social History Tobacco Use Types Packs/Day Years [...] or relatives? How often do you attend cheondoism or Never 2021 faith services? Do you belong to any clubs or No 02/16/2021 organizations such as cheondoism groups, unions, fraternal or athletic groups, or [...] Sign Reading Time Taken Comments Blood Pressure 110/72 09/26/2017 8:52 AM CDT Pulse 92 09/26/2017 8:52 AM CDT Temperature 36.9 ??C (98.4 ??F) 09/26/2017 8:52 AM CDT Respiratory Rate - - Oxygen Saturation - - Inhaled Oxygen Concentration - - Weight 73 kg (160 lb 15 oz) 09/26/2017 8:52 AM CDT Height 161 cm (5' 3.39) 09/26/2017 8:52 AM CDT Body Mass Index 28.16 09/26/2017 8:52 AM CDT documented in this encounter H&P Notes Fausto Good P.A.-C. - 09/26/2017 9:15 AM CDT CHIEF COMPLAINT / REASON FOR VISIT Hannah Kahn is a 52 y.o. female who presents for evaluation of Annual Exam (can't sleep). HISTORY OF PRESENT ILLNESS Hannah presents today for her yearly history and physical. She has some concerns about weight loss she has lost a significant amount of weight over the last year but she has been pretty active she says that she found her biological mother and this has had some stress to her life. She has a stressful job but overall she otherwise has been enjoying think she has been riding motorcycle quite regularly.She was a little concerned about the weight loss and fatigue that she has been experiencing. PAST MEDICAL HISTORY: Patient Active Problem List Diagnosis ??? Gastroesophageal Reflux Disease NOS ??? Migraine Headache PAST SURGICAL HISTORY: Past Surgical History: Procedure Laterality Date ??? CHOLECYSTECTOMY N/A Cholecystectomy ??? ENDOMETRIAL THERMAL ABLATION N/A 05/20/2003 Endometrial ablation, thermal, without hysteroscopic guidance.. ??? TONSILLECTOMY AND ADENOIDECTOMY N/A Tonsillectomy and adenoidectomy SOCIAL HISTORY: Social History Substance Use Topics ??? Smoking status: Current Every Day Smoker ??? Smokeless tobacco: Not on file ??? Alcohol use Not on file FAMILY HISTORY: Family History Problem Relation Age of Onset ??? Adopted: Yes ??? Heart attack Mother REVIEW OF SYSTEMS: [...] or bleeding or enlarged lymph nodes. MEDICATIONS: No current outpatient prescriptions on file. No current facility-administered medications for this visit. ALLERGIES: Allergies Allergen Reactions ??? Amoxicillin Hives ??? Cefaclor Hives ??? Iodinated Contrast- Oral And Iv Dye Other (see comments) ??? Penicillins Other (see comments) ??? Shellfish Containing Products Anaphylaxis VITALS: Vitals: 09/26/17 0852 BP: 110/72 BP Location: Left arm Patient Position: Sitting Cuff Size: Large Pulse: 92 Temp: 36.9 ??C Weight: 73 kg Height: 161 cm Body mass index is 28.16 kg/m??. OBJECTIVE Vitals: 09/26/17 0852 BP: 110/72 BP Location: Left arm Patient Position: Sitting Cuff Size: Large Pulse: 92 Temp: 36.9 ??C Weight: 73 kg Height: 161 cm Body mass index is 28.16 kg/m??. PHYSICAL EXAM GENERAL: Patient appears in no acute distress. ENT: TMs no erythema. Throat no erythema. NECK: No lymphadenopathy. No thyroid masses. HEART: Regular rate and rhythm. No murmurs. LUNGS: Clear to auscultation. BREASTS: Symmetrical. No lumps appreciated. No axillary lymph nodes palpable. ABDOMEN: Soft and nontender to palpation. IMPRESSION / REPORT / PLAN #1 Screening Cancer Colon She is due for colonoscopy she will be ASA class 1 for surgery I am going to have her follow up for surgery as scheduled today's visit will count for her preop and this can be extended until the time of her colonoscopy #2 Screening Examination For Thyroid Disorder Will check a TSH because of her fatigue all notify with results #3 Screening Examination Diabetes Mellitus We did a metabolic panel before this visit will recheck this again next year #4 Iron Deficiency Anemia Screening Exam Will check a CBC because of her fatigue #5 Encounter For Screening For Cardiovascular Disorders Will check a lipid panel when we see her back next year #6 Loss Weight We discussed the many possible etiologies of this and also going to check a C reactive protein todaythis may just be because she has been stressed and has not been eating as much. If this persists or she develops any other associated symptoms she will let us know if she has any questions or problems she will let us know otherwise I will notify when I get her lab results back Fausto Good P.A.-C. documented in this encounter Plan of Treatment Scheduled Referrals Name Type Priority Associated Diagnoses Order S issa Family Medicine Outpatient Referral Routine Expec brea: office visit 09/26/2018 (clinic) (Approximate), Expires: 09/26/2020 documented as of this encounter Procedures Procedure Name Priority Date/Time Associated Diagnosis Comme nts CBC WITH Routine 09/26/2017 10:32 Iron Deficiency Anemia R esults for this DIFFERENTIAL, B AM CDT Screening Exam procedure are in the results section. C-REACTIVE Routine 09/26/2017 10:32 Screening Cance r Colon Results for this PROTEIN, HIGH AM CDT Screening Examination proce dure are in SENSITIVITY, S/P For Thyroid Dis order the results Screening Examination sectio n. Diabetes Mellitu s Iron Deficiency Anemia Screening Exam Encounter For Screening For Cardiovascular Disorders Loss Weight THYROID-STIMULATIN Routine 09/26/2017 10:32 Screening Ca ncer Colon Results for this G AM CDT Screening Examination proced ure are in HORMONE-SENSITIVE For Thyroid Di sorder the results (S-TSH) Screening Examination sectio n. Diabetes Mellitu s Iron Deficiency Anemia Screening Exam Encounter For Screening For Cardiovascular Disorders Loss Weight documented in this encounter Results (ABNORMAL) Comprehensive Metabolic Panel (10/28/2017 8:55 AM CDT) Analysis Performed At Patho logist Time Signature Potassium, S 4.7 3.6 - 5.2 10/28/2017 [facility] mmol/L 9:46 AM CDT LAB[facility]ATOR[facility] - [facility] Sodium, S 141 135 - 145 10/28/2017 [facility] mmol/L 9:46 AM CDT [facility] - [facility] Chloride, S 104 98 - 107 10/28/2017 [facility] mmol/L 9:46 AM CDT [facility] - [facility] Bicarbonate, S 27 22 - 29 10/28/2017 [facility] mmol/L 9:46 AM CDT [facility] - [facility] Anion Gap 10 7 - 15 10/28/2017 [facility] 9:46 AM CDT [facility] - [facility] BUN (Blood Urea 12 6 - 21 10/28/2017 [facility] Nitrogen), S mg/dL 9:46 AM CDT LABORATORIES [facility] Creatinine 0.59 0.59 - 10/28/2017 [facility] 1.04 mg/dL 9:46 AM CDT [facility] - [facility] eGFR-Non >90 >=60 10/28/2017 [facility] Black/ mL/min/BSA 9:46 CDT LABORATORIES [facility] Comment: ----ADDITIONAL INFORMATION---- Estimated GFR calculated using the 2009 CKD_EPI creatinine equation. eGFR-Black/ >90 >=60 mL/min/BSA 10/28/2017 9:46 [facility] CDT [facility] Comment: ----ADDITIONAL INFORMATION---- Estimated GFR calculated using the 2009 CKD_EPI creatinine equation. Calcium, Total, S 9.6 8.6 - 10.0 10/28/2017 9:46 [facility] mg/dL CDT LABORATORIES [facility] Glucose, S 127 70 - 140 10/28/2017 9:46 [facility] mg/dL CDT [facility] Protein, Total, S 6.8 6.3 - 7.9 10/28/2017 9:46 [facility] g/dL CDT [facility] Albumin, S 4.1 3.5 - 5.0 10/28/2017 9:46 [facility] g/dL AM CDT [facility] Aspartate 20 8 - 43 U/L 10/28/2017 9:46 [facility] Aminotransferase (AST), AM CDT LABORA TORIES - S [facility] Alkaline Phosphatase, S 131 (H) 39 - 100 U/L 10/28/2017 9: 46 [facility] CDT [facility] Alanine Aminotransferase 33 7 - 45 U/L 10/28/2017 9:4 6 [facility] (ALT), S CDT [facility] Bilirubin, Total, S 0.3 <=1.2 mg/dL 10/28/2017 9:46 [facility] CDT [facility] Specimen Anatomical Collection Method Collection Time Receive d Time (Source) Location / / Volume Laterality Blood (Blood, 10/28/2017 8:55 AM 10/29/19 18 9:03 Venous) CDT AM CDT Fausto Good P.A.-C. LAB BLOOD ADD-ON Performing Organization Address City/State/ZIP Code Phon e Number [facility] - [address] [place], [place] [address] [facility] Hemoglobin A1c (10/28/2017 8:55 AM CDT) Analysis Performed At Patho logist Time Signature Hemoglobin A1c, 5.4 4.0 - 5.6 10/28/2017 [facility] B % 9:59 AM CDT [facility] - [facility] Specimen Anatomical Collection Method Collection Time Receive d Time (Source) Location / / Volume Laterality Blood (Blood, 10/28/2017 8:55 AM 10/29/19 18 9:03 Venous) CDT AM CDT Fausto Good P.A.-C. LAB BLOOD ADD-ON Performing Organization Address City/State/ZIP Code Phon e Number [facility] LABORATORIES - [address] [place], [place] [address] [facility] (ABNORMAL) CBC with Differential, Blood (09/26/2017 10:32 AM CDT) [facility] Method Time Signature Hemoglobin 14.0 11.6 - 09/26/2017 [facility] 15.0 g/dL 11:07 AM T [employer] [employer] [facility] Hematocrit 42.2 35.5 - 09/26/2017 [facility] 44.9 % 11:07 AM T [employer] [facility] Erythrocytes 4.95 3.92 - 09/26/2017 [facility] 5.13 11:07 AM CDT HEALTH x10(12)/L SYSTEM- [employer] [facility] MCV 85.3 78.2 - 09/26/2017 [facility] 97.9 fL 11:07 AM T [employer] [facility] RBC Distrib Width 12.5 12.2 - 09/26/2017 [facility] 16.1 % 11:07 AM T [facility] [facility] Platelet Count 216 157 - 371 09/26/2017 [facility] x10(9)/L 11:07 AM CDT [facility] [facility] Leukocytes 6.5 3.4 - 9.6 09/26/2017 [facility] x10(9)/L 11:07 AM CDT [employer] [facility] Neutrophils 3.51 1.56 - 09/26/2017 [facility] 6.45 11:07 AM CDT HEALTH x10(9)/L [facility] Lymphocytes 1.94 0.95 - 09/26/2017 [facility] 3.07 11:07 AM CDT HEALTH x10(9)/L [facility]- [facility] Monocytes 0.84 (H) 0.26 - 09/26/2017 [facility] 0.81 11:07 AM CDT HEALTH x10(9)/L SYSTEM- [facility] Eosinophils 0.18 0.03 - 09/26/2017 [facility] 0.48 11:07 AM CDT HEALTH x10(9)/L SYSTEM- [place] [facility] Basophils 0.03 0.01 - 09/26/2017 [facility] 0.08 11:07 AM CDT HEALTH x10(9)/L SYSTEM- [facility] Specimen Anatomical Collection Method Collection Time Receive d Time (Source) Location / / Volume Laterality Blood (Blood, 09/26/2017 10:32 09/26/2017 Venous) AM CDT 10:33 AM CDT Fausto Good P.A.-C. LAB BLOOD ADD-ON Performing Organization Address City/[facility]/ZIP Code Phon e Number [facility] [address] [place] [address] [facility]- [address] [place], [place] [address] [place] [address] [facility] (ABNORMAL) C-Reactive Protein, High Sensitivity (09/26/2017 10:32 AM CDT) Patholo gist Method Time Signature C-Reactive 4.1 (H) <2.0 mg/L 09/27/2017 [facility] Protein, High 12:35 PM CDT LABORATORIES - Sens, S [facility] Comment: Higher risk In adults, increased CRP is associated w ith an increased risk for ischemic cardiovascular events. CRP is an acute phase reactant; consider repeat analysis of CRP in 2-4 weeks to establish baseline value . Specimen Anatomical Collection Method Collection Time Receive d Time (Source) Location / / Volume Laterality Blood (Blood, 09/26/2017 10:32 09/27/2017 8:55 Venous) AM CDT AM CDT Fausto Good P.A.-C. LAB BLOOD ADD-ON Performing Organization Address City/State/ZIP Code Phon e Number [facility] LABORATORIES - [address] [place], [place] [address] [facility] (ABNORMAL) S-TSH (Thyroid-Stimulating Hormone - Sensitive) (09/26/2017 10:32 AM CDT) Analysis Performed At Patho logist Time Signature TSH, Sensitive <0.01 (L) 0.3 - 4.2 09/26/2017 [facility] mIU/L 2:06 PM CDT [facility] Comment: Biotin has been identified by [...] Location / / Volume Laterality Blood (Blood, 09/26/2017 10:32 09/26/2017 1:08 Venous) AM CDT PM CDT Fausto Good P.A.-C. LAB BLOOD ADD-ON Performing Organization Address City/State/ZIP Code Phon e Number [facility] [address] [place] [address] LAB documented in this encounter Visit Diagnoses Diagnosis Screening Cancer Colon - Primary Screening Examination For Thyroid Disord er Screening Examination Diabetes Mellitus Iron Deficiency Anemia Screening Exam Encounter For Screening For Cardiovascul ar Disorders Loss Weight documented in this encounter Additional Health Concerns Assessment Noted Time PHQ-9 Depression Total Score: 7 09/12/2014 2:25 PM CDT documented as of this encounter Care Teams Newsroom Intern Relationship Specialty Start Date End Date Fausto Good P.A.-C. PCP - General 07/25/[address] [place] [phone] documented as of this encounter
--- OUTSIDE RECORDS SUMMARY | 2022-01-23 07:21 | XMS_ITS | Encounter Summary ---
:1965 Author Organization [facility] Address [address] [place] [address] Care Team Providers Name Role Phone Unavailable Primary Care Provider Unavailable Encounter Details Date Type Department Care Team Description 10/11/2015 Hospital Encounter HX [facility] Mohan Good P.A.-C. [address] [place] [phone] (Wo rk) Social History [...] do you attend evangelical or Never 2021 yazidi services? Do you [...] - - Height 158 cm (5' 2.21) 10/11/2015 8:44 AM CDT Body Mass Index - - documented in this encounter Plan of Treatment Not on filedocumented as of this encounter Procedures Procedure Name Priority Date/Time Associated Comments Diagnosis LIPID PANEL, S Routine 10/11/2015 8:50 AM Results for this CDT procedure are i n the results section. THYROID-STIMULATING Routine 10/11/2015 8:50 AM Re sults for this HORMONE-SENSITIVE CDT procedure are in (S-TSH) the results section. COMPREHENSIVE Routine 10/11/2015 8:50 AM Results for this METABOLIC PANEL, S/P CDT procedu re are in the results section. documented in this encounter Results Thyroid-Stimulating Hormone-Sensitive (s-TSH) (10/11/2015 8:50 AM CDT) P athologist Signature TSH 1.73 0.27 - 4.20 POWERCHART (Thyrotropin) MIUL Comment: Biotin has been identified by the lazarus singh as a potential interfering substance. Higher concentrations of biotin may be found in multivitamins, hair/nail supplements, and workout supplements. If the result does not match clinical observat ions, repeat testing after patient refrains from the use of supplements for at least 12 hours. Specimen (Source) Anatomical Collection Method Collection Time Re ceived Time Location / / Volume Laterality Blood 10/11/2015 8:50 AM CDT Fausto Good P.A.-C. LAB BLOOD ADD-ON Performing Organization Address City/State/ZIP Code Phon e Number POWERCHART (ABNORMAL) Lipid Panel (10/11/2015 8:50 AM CDT) athologist Signature Calculated LDL 92 <=129 MGDL POWERCHART Comment: 2014 National Lipid Association recommen dations for LDL-C in adults ages 18 and up: Desirable <100 mg/dL Above desirable 100-129 mg/dL Borderline high 130-159 mg/dL High 160-189 mg/dL Very High 190 mg/dL 2014 National Lipid Association recommen dations for LDL-C in children ages 2 to 17. Acceptable <110 mg/dL Borderline High 110-129mg/dL High 130 mg/dL LDL-C >190mg/dL: The markedly elevated LDL level is suggestive of a genetic condition such as familial hypercholesterolemia(FH) or familial defective apolipoprotein B-100 (FDB). Molecular genetic t esting for FH and FDB is available throelmo [facility]: FH/ADH Genetic Reflex Bailey el (test ADHP). Acquired (non-genetic) causes of markedly increased LDL cholesterol include cholestatic liver disease due to the presence of LpX. If a genetic form of hypercholesterolemia is suspected, family studies including biochemical testing fo r lipids (total cholesterol,triglycerides, LDL cholesterol and HDL cholesterol) are recommended. ??Please contact the laboratory at or the on-line test catalog at [facility] for information about how to order these ernst ts or to speak with a genetic counselor. Further interpretation would require clinical information. Total Cholesterol/HDL Ratio 4.05 PO WERCHART Cholesterol, Total 150 <=199 MGDL POWERCHART Comment: 2013 National Lipid Association recommen dations for Total Cholesterol in adults ages 18 and up: Desirable <200 mg/dL Borderline high 200-239 mg/dL High 240 mg/dL 2014 National Lipid Association recommen dations for Total Cholesterol in children ages 2 to 17. Acceptable <170 mg/dL Borderline High 170-199 mg/dL High 200 mg/dL HX HDL 37 (L) >=50 MGDL POWERCHART Comment: 2014 National Lipid Association recommen dations for HDL-C in adults ages 18 and up: Low <40 mg/dL (Men) Low <50 mg/dL (Women) 2014 National Lipid Association recommen dations for HDL-C in children ages 2 to 17. Low <40 mg/dL Borderline Low 40-45 mg/dL Acceptable >45 mg/dL Triglycerides 106 <=149 MGDL POWERCHART Comment: 2014 National Lipid Association recommen dations for Triglycerides in adults ages 18 and up: Normal <150 mg/dL Borderline High 150-199 mg/dL High 200-499 mg/dL Very High 500 mg/dL 2014 National Lipid Association recommen dations for Triglycerides in children ages 2 to 9. Acceptable <75 mg/dL Borderline High 75-99 mg/dL High 100 mg/dL 2014 National Lipid Association recommen dations for Triglycerides in children ages 10 to 17. Acceptable <90 mg/dL Borderline High 90-129 mg/dL High 130 mg/dL Trigs >400mg/dL: Triglycerides >400 mg/ dL. Calculated LDL cholesterol is not valid. Non-HDL cholesterol may be used for risk assessment when triglycerides are >400mg/dL. HXLDL/HDL 2 POWERCHART Specimen (Source) Anatomical Collection Method Collection Time Re ceived Time Location / / Volume Laterality Blood 10/11/2015 8:50 AM CDT Fausto Good P.A.-C. LAB BLOOD ADD-ON Performing Organization Address City/State/ZIP Code Phon e Number POWERCHART (ABNORMAL) CMP (Comprehensive Metabolic Panel) (10/11/2015 8:50 AM CDT) [facility] gist Method Time Signature Alanine 23 7 - 45 POWERCHART Amniotransferase, LD UNITL Albumin, S 4.2 3.2 - 5.2 POWERCHART GDL Alkaline 84 39 - 100 POWERCHART Phosphatase, S UNITL Aspartate 20 8 - 43 POWERCHART Aminotransferase UNITL (AST), S Sodium, S 140 135 - 145 POWERCHART MMOLL Potassium, S 4.1 3.6 - 5.2 POWERCHART MMOLL Chloride, S 102 98 - 107 POWERCHART MMOLL CO2 Total 27 22 - 29 POWERCHART MMOLL Glucose, Fasting, S 121 (H) 70 - 99 POWERCHART MGDL BUN (Blood Urea 15 6 - 21 POWERCHART Nitrogen), S MGDL Creatinine 0.74 0.60 - POWERCHART 1.10 MGDL Calcium, Total, S 9.7 8.0 - POWERCHART 10.3 MGDL Anion Gap 11 7 - 15 POWERCHART MMOLL HXeGFR (MDRD) >60 >=60 POWERCHART [id number] 2 eGFR Black/ >60 >=60 POWERCHART [place] [id number] 2 Bilirubin, Total, S 0.5 0.1 - 1.0 POWERCHART MGDL Total Protein, S 7.3 6.3 - 7.9 POWERCHART GDL Specimen (Source) Anatomical Collection Method Collection Time Re ceived Time Location / / Volume Laterality Blood 10/11/2015 8:50 AM CDT Fausto Good P.A.-C. LAB BLOOD ADD-ON Performing Organization Address City/State/ZIP Code Phon e Number POWERCHART documented in this encounter Visit Diagnoses Not on filedocumented in this encounter Additional Health Concerns Assessment Noted Time PHQ-9 Depression Total Score: 7 09/12/2014 2:25 PM CDT documented as of this encounter
--- OUTSIDE RECORDS SUMMARY | 2022-01-23 07:21 | XMS_ITS | Encounter Summary ---
:1965 Author Organization [facility] Address [address] [place] [address] Care Team Providers Name Role Phone Unavailable Primary Care Provider Unavailable Encounter Details Date Type Department Care Team Description 10/11/2015 Hospital Encounter HX [facility] Fausto Hathaway P.A.-C. [address] [place] [phone] (Wo rk) Social History [...] do you attend hinduism or Never 2021 baptism services? Do you belong to any clubs [...] Date/Time Associated Comments Diagnosis BI BREAST DIAGNOSTIC Routine 10/11/2015 9:00 AM R esults for this BILATERAL WITH CDT procedure are in TOMOSYNTHESIS the results section. documented in this encounter Results BI Breast Diagnostic Bilateral with Tomosynthesis (10/11/2015 9:00 AM CDT) Anatomical Region Laterality Modality Breast Bilateral Mammography Specimen (Source) Anatomical Collection Method Collection Time Re ceived Time Location / / Volume Laterality 10/11/2015 9:00 AM CDT Addenda Addendum by Provider, Latrice Vincent 10/11/2015 9:00 AM CDT RAD^^^OW [place] Digital Diag Bilat Mammo w/ Dhaval 10/11/2015 09:00:53 Impressions 10/12/2015 9:19 AM CDT CODE: 3-PROBABLY BENIGN. Probable benign-appearing cysts, 6 month follow-up evaluation for verification. Appropriate letter sent. Full field digital mammography is used a nd Computer Aided Detection is performed on the digital mammogram im ages. Narrative 10/12/2015 9:19 AM CDT EXAM: ??[place] Digital Diag Bilat Mammo w/ T jeanine. AGE: ??50 years old. GENDER: ??Female. INDICATION: ??Bilateral Asymmetries COMPARISON: ??10/02/2015, 04/16/2010, 2007, 06/30/2006 FINDINGS: History:-year-old female recalled from [facility] bilateral digital screening mammogram 10/02/2015 which demo nstrated heterogeneously dense breast parenchyma bilaterally. Patient was recalled for focal asymmetry within slightly outer, inner, left breast, middle, posterior de pth. 2 additional focal asymmetries within the upper, outer righ t breast. Bilateral digital diagnostic mammogram demonstrates heterogeneously dense breast parenchyma bilaterally. Persistent multiple rounded and oval-sha ped densities throughout both breasts. Some of the margins are obscure d due to overlying breast parenchyma. Due to relative diffuse appearance, ultr asound evaluation performed of both breasts to further evaluate and characterize the bilateral breast masses. BILATERAL BREAST ULTRASOUND FINDINGS: Ultrasound evaluation of the bilateral b reast and bilateral axilla. RIGHT BREAST ULTRASOUND FINDINGS: 8 O'clock position, 1 cm from center of the right nipple there is a 4 mm x 4 mm x 3 mm circular, hypoechoic, n o discernible internal Doppler blood flow, no appreciable poste rior acoustic shadowing or enhancement area, could represent a poss ible fluid-filled debris within a duct or possible complex cyst. 9:00, 9 cm from the center of the right nipple there is a 9 mm x 6 mm x 4 mm, oval-shaped, circumscribed, hypo echoic focus no internal Doppler blood flow, no appreciable poste rior acoustic shadowing or enhancement could represent a fat lobule within a more dense ridge of breast parenchyma, alternatively complex /complicated cyst less likely solid mass. Recommend 6 month follow-up evaluation. If area remains stable, likely may then resume annual sc reening mammography schedule. LEFT BREAST ULTRASOUND FINDINGS:? 9:00 position, 9 cm from the center of t he left nipple there is a bilobed, probable complicated cystic are a which measures 8 mm x 4 m x 3 mm. No appreciable posterior acoustic shadowing or enhancement, no discernible internal Doppler blood flow, favor probable benign etiology. Recommend 6 month follow-up ultrasound e valuation. If area remains stable, patient may also likely resume a nnual screening mammography schedule. BILATERAL AXILLA: Normal sonographic megan earance of the bilateral axilla. Procedure Note Romario Snell M.D. / ProviderEstefania M.D. - 06/15/2016 EXAM: [facility] Digital Diag Bilat Mammo w/ Jorje o. AGE: [age] years old. GENDER: Female. INDICATION: Bilateral Asymmetries COMPARISON: 10/02/2015, 04/16/2010, 10/30/19 08, 06/30/2006 FINDINGS: History:-[facility] 10/02/2015 which demo nstrated heterogeneously dense breast parenchyma bilaterally. Patient was recalled for focal asymmetry within slightly outer, inner, left breast, middle, posterior de pth. 2 additional focal asymmetries within the upper, outer righ t breast. Bilateral digital diagnostic mammogram demonstrates heterogeneously dense breast parenchyma bilaterally. Persistent multiple rounded and oval-sha ped densities throughout both breasts. Some of the margins are obscure d due to overlying breast parenchyma. Due to relative diffuse appearance, ultr asound evaluation performed of both breasts to further evaluate and characterize the bilateral breast masses. BILATERAL BREAST ULTRASOUND FINDINGS: Ultrasound evaluation of the bilateral b reast and bilateral axilla. RIGHT BREAST ULTRASOUND FINDINGS: 8 O'clock position, 1 cm from center of the right nipple there is a 4 mm x 4 mm x 3 mm circular, hypoechoic, n o discernible internal Doppler blood flow, no appreciable poste rior acoustic shadowing or enhancement area, could represent a poss ible fluid-filled debris within a duct or possible complex cyst. 9:00, 9 cm from the center of the right nipple there is a 9 mm x 6 mm x 4 mm, oval-shaped, circumscribed, hypo echoic focus no internal Doppler blood flow, no appreciable poste rior acoustic shadowing or enhancement could represent a fat lobule within a more dense ridge of breast parenchyma, alternatively complex /complicated cyst less likely solid mass. Recommend 6 month follow-up evaluation. If area remains stable, likely may then resume annual sc reening mammography schedule. LEFT BREAST ULTRASOUND FINDINGS:? 9:00 position, 9 cm from the center of t he left nipple there is a bilobed, probable complicated cystic are a which measures 8 mm x 4 m x 3 mm. No appreciable posterior acoustic shadowing or enhancement, no discernible internal Doppler blood flow, favor probable benign etiology. Recommend 6 month follow-up ultrasound e valuation. If area remains stable, patient may also likely resume a nnual screening mammography schedule. BILATERAL AXILLA: Normal sonographic megan earance of the bilateral axilla. IMPRESSION: CODE: 3-PROBABLY BENIGN. Probable benign-appearing cysts, 6 month follow-up evaluation for verification. Appropriate letter sent. Full field digital mammography is used a nd Computer Aided Detection is performed on the digital mammogram im ages. Capri Turcios(R) IMG BI PROCEDURES documented in this encounter Visit Diagnoses Not on filedocumented in this encounter Additional Health Concerns Assessment Noted Time PHQ-9 Depression Total Score: 7 09/12/2014 2:25 PM CDT documented as of this encounter
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
--- OUTSIDE RECORDS SUMMARY | 2022-01-23 07:21 | XMS_ITS | Encounter Summary ---
:1965 Author Organization [facility] Address [address] [place] [address] Care Team Providers Name Role Phone Unavailable Primary Care Provider Unavailable Encounter Details Date Type Department Care Team Description 10/11/2015 Hospital Encounter HX [facility] Mohan Lawler P.A.-C. [address] [place] [address] (Wo rk) Social History [...] do you attend yarsani or Never 2021 muslim services? Do you belong to any clubs [...] - Height 158 cm (5' 2.21) 10/11/2015 9:19 AM CDT Body Mass Index - - documented in this encounter Plan of Treatment Not on filedocumented as of this encounter Visit Diagnoses Not on filedocumented in this encounter Additional Health Concerns Assessment Noted Time PHQ-9 Depression Total Score: 7 09/12/2014 2:25 PM CDT documented as of this encounter
--- OUTSIDE RECORDS SUMMARY | 2022-01-23 07:21 | XMS_ITS | Encounter Summary ---
:1965 Author Organization [facility] Address [address] [place] [address] Care Team Providers Name Role Phone Fausto Good P.A.-C. Primary Care Provider [phone] Encounter Details Date Type Department Care Team Description 04/05/2015 Historical Ophthalmology [facility] Zeferino Jonas M.D. [address] [place], [place] [phone] (Wo rk) Social History [...] do you attend amish or Never 2021 congregational services? Do you belong to any clubs [...] documented as of this encounter Progress Notes Zeferino Jonas M.D. - 04/05/2015 8:58 AM CST Eye General CHIEF COMPLAINT CE HISTORY OF PRESENT ILLNESS States she can't see at all. She is in her first pair of progressive lenses and has had nothing but problems with them. Feels she shouldn't drive. IMPRESSION / REPORT / PLAN #1 Myopia and presbyopia both eyes. #2 Cataracts, nuclear both eyes. Early stage. PlaN: U/v protection. Update glasses. F/u one to two years. CE/ref DIAGNOSIS #1 Myopia and presbyopia both eyes. #2 Cataracts, nuclear both eyes. Early stage. CDM Reports - EYEGEN Id: [id number] Status: Fnl documented in this encounter Plan of Treatment Not on filedocumented as of this encounter Visit Diagnoses Not on filedocumented in this encounter Additional Health Concerns Assessment Noted Time PHQ-9 Depression Total Score: 7 09/12/2014 2:25 PM CDT documented as of this encounter Care Teams Ruby Engineer Relationship Specialty Start Date End Date Fausto Good P.A.-C. PCP - General 07/25/[address] [place] [phone] documented as of this encounter
--- OUTSIDE RECORDS SUMMARY | 2022-01-23 07:21 | XMS_ITS | Encounter Summary ---
:1965 Author Organization [facility] Address [address] [place] [address] Care Team Providers Name Role Phone Fausto Good P.A.-C. Primary Care Provider [phone] Encounter Details Date Type Department Care Team Description 09/29/2017 Hospital Encounter Department of Fausto Good Hyp erthyroidism Laboratory Medicine in [place], [place] [address] [phone] Social History Tobacco Use Types Packs/Day Years [...] do you attend religion or Never 2021 presybeterian services? Do you [...] Name Priority Date/Time Associated Diagnosis Comme nts THYROPEROXIDASE (TPO) Routine 09/29/2017 10:03 Hyperthyroidism Results for this ABS, S AM CDT procedure are i n the results section. T4 (THYROXINE), FREE, S Routine 09/29/2017 10:03 Hyperthyroidi sm Results for this AM CDT procedure are i n the results section. documented in this encounter Results (ABNORMAL) T4 (Thyroxine), Free (09/29/2017 10:03 AM CDT) P athologist Signature T4 3.1 (H) 0.9 - 1.7 09/29/2017 [facility] (Thyroxine), ng/dL 1:33 PM CDT [facility] LAB Comment: Biotin has been identified by the lazarus singh as a potential interfering substance. ??Higher concentr ations of biotin may be found in multivitamins, hair/nail supple ments, and workout supplements. ??If the result does not ma [facility] clinical observations, repeat testing after patient refrains fr om the use of supplements for at least 12 hours. Specimen Anatomical Collection Method Collection Time Receive d Time (Source) Location / / Volume Laterality Blood (Blood, 09/29/2017 10:03 09/29/2017 Venous) AM CDT 12:58 PM CDT Fausto Good P.A.-C. LAB BLOOD ADD-ON Performing Organization Address City/State/ZIP Code Phon e Number [facility] [place] [address] [place] [address] LAB (ABNORMAL) Thyroperoxidase (TPO) Antibodies (09/29/2017 10:03 AM CDT) Component Value Ref Test Analysis Performed At Patholo gist Range Method Time Signature Thyroperoxidase Ab, >800.0 <9.0 09/30/2017 [facility] (H) IU/mL 8:00 AM CDT [facility] - [facility] Specimen Anatomical Collection Method Collection Time Receive d Time (Source) Location / / Volume Laterality Blood (Blood, 09/29/2017 10:03 09/30/2017 7:10 Venous) AM CDT AM CDT Fausto Good P.A.-C. LAB BLOOD ADD-ON Performing Organization Address City/State/ZIP Code Phon e Number [facility] - [address] [place], [place] [address] [facility] documented in this encounter Visit Diagnoses Diagnosis Hyperthyroidism documented in this encounter Additional Health Concerns Assessment Noted Time PHQ-9 Depression Total Score: 7 09/12/2014 2:25 PM CDT documented as of this encounter Care Teams Invertebrate Paleontologist Relationship Specialty Start Date End Date Fausto Good P.A.-C. PCP - General 07/25/[address] [place] [phone] documented as of this encounter
--- OUTSIDE RECORDS SUMMARY | 2022-01-23 07:21 | XMS_ITS | Encounter Summary ---
:1965 Author Organization [facility] Address [address] [place] [address] Care Team Providers Name Role Phone Unavailable Primary Care Provider Unavailable Encounter Details Date Type Department Care Team Description 04/10/2016 Hospital Encounter HX [facility] Fausto Hathaway P.A.-C. [address] [place] [address] (Wo rk) Social History [...] many times do you More than three lbue es a week 02/16/2021 talk on the phone with family, friends, or neighbors? How often do you get together with friends Never 02/16/2021 or relatives? How often do you attend episcopal or Never 2021 oriental orthodox services? 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
--- OUTSIDE RECORDS SUMMARY | 2022-01-23 07:21 | XMS_ITS | Encounter Summary ---
:1965 Author Organization [facility] Address [address] [place] [address] Care Team Providers Name Role Phone Unavailable Primary Care Provider Unavailable Encounter Details Date Type Department Care Team Description 10/02/2015 Hospital Encounter HX NO MAPPING Everton Good P.A.-C. [address] [place] [address] (Wo rk) Social History [...] or relatives? How often do you attend roman catholic or Never 2021 pentecostal services? Do you belong to any clubs or No 02/16/2021 organizations such as roman catholic groups, unions, fraternal or athletic groups, [...] or slept in a jail (including now)? Sex Assigned at Date Recorded Female 10/01/2017 7:47 AM CDT documented as of this encounter Plan of Treatment Not on filedocumented as of this encounter Visit Diagnoses Not on filedocumented in this encounter Additional Health Concerns Assessment Noted Time PHQ-9 Depression Total Score: 7 09/12/2014 2:25 PM CDT documented as of this encounter
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
--- OUTSIDE RECORDS SUMMARY | 2022-01-23 07:21 | XMS_ITS | Encounter Summary ---
:1965 Author Organization [facility] Address [address] [place] [address] Care Team Providers Name Role Phone Fausto Good P.A.-C. Primary Care Provider [phone] Encounter Details Date Type Department Care Team Description 09/22/2017 Hospital Encounter Department of Leandra Good Laboratory Medicine Zahra Lambert [facility] in [address] [facility] [address] [place], [place] [phone] (Work) [phone] Social History Tobacco Use Types Packs/Day Years [...] or relatives? How often do you attend baptist or Never 2021 faith services? Do you belong to any clubs or No 02/16/2021 organizations such as baptist groups, unions, fraternal or athletic groups, or [...] or slept in a intermediate (including now)? Sex Assigned at Date Recorded Female 10/01/2017 7:47 AM CDT documented as of this encounter Plan of Treatment Not on filedocumented as of this encounter Procedures Procedure Name Priority Date/Time Associated Diagnosis Comme nts GLUCOSE, FASTING, Routine 09/22/2017 7:59 AM Hypertension Resu lts for this S/P CDT [facility] procedure are in the results section. BASIC METABOLIC Routine 09/22/2017 7:59 AM Hypertension Result s for this PANEL, S/P CDT [facility] procedure are in the results section. documented in this encounter Results (ABNORMAL) Glucose, Fasting (09/22/2017 7:59 AM CDT) P athologist Signature Glucose, 115 (H) 70 - 99 09/22/2017 [facility] Fasting, S mg/dL 11:37 AM CDT [facility] Specimen Anatomical Collection Method Collection Time Receive d Time (Source) Location / / Volume Laterality Blood (Blood, 09/22/2017 7:59 AM 09/23/19 18 Venous) CDT 11:03 AM CDT Fausto Good P.A.-C. LAB BLOOD NON ADD-ON Performing Organization Address City/State/ZIP Code Phon e Number [facility] [address] [place] [address] LAB (ABNORMAL) BMP (Basic Metabolic Panel) (09/22/2017 7:59 AM CDT) Analysis Performed At Patho logist Time Signature Potassium, S 4.4 3.6 - 5.2 09/22/2017 [facility] mmol/L 11:37 AM CDT [facility] Sodium, S 143 135 - 145 09/22/2017 [facility] mmol/L 11:37 AM CDT [facility] Chloride, S 107 98 - 107 09/22/2017 [facility] mmol/L 11:37 AM [facility] Bicarbonate, S 26 22 - 29 09/22/2017 [facility] mmol/L 11:37 AM [facility] Anion Gap 10 7 - 15 09/22/2017 [facility] 11:37 AM [facility] BUN (Blood Urea 21 6 - 21 09/22/2017 [facility] Nitrogen), S mg/dL 11:37 AM [facility] Creatinine 0.55 (L) 0.59 - 09/22/2017 [facility] 1.04 mg/dL 11:37 AM [facility] eGFR-Non >90 >=60 09/22/2017 [facility] Black/ mL/min/BSA 11:37 AM [facility] Comment: ----ADDITIONAL INFORMATION---- Estimated GFR calculated using the 2009 CKD_EPI creatinine equation. eGFR-Black/ >90 >=60 mL/min/BSA 2017 11:37 [facility] Comment: ----ADDITIONAL INFORMATION---- Estimated GFR calculated using the 2009 CKD_EPI creatinine equation. Calcium, Total, S 10.2 (H) 8.6 - 10.0 mg/dL 09/22/2017 1 1:37 AM [facility] Glucose, S CANCELED mg/dL 09/22/2017 11:03 AM [facility] [place] [facility] Comment: Test not performed. See Fasting Glucose result. Result canceled by the ancillary Specimen Anatomical Collection Method Collection Time Receive d Time (Source) Location / / Volume Laterality Blood (Blood, 09/22/2017 7:59 AM 09/23/19 18 Venous) CDT 11:03 AM CDT Fausto Good P.A.-C. LAB BLOOD ADD-ON Performing Organization Address City/State/ZIP Code Phon e Number [facility] [address] [place] [address] LAB documented in this encounter Visit Diagnoses Diagnosis Hypertension [facility] documented in this encounter Additional Health Concerns Assessment Noted Time PHQ-9 Depression Total Score: 7 09/12/2014 2:25 PM CDT documented as of this encounter Care Teams Director Medical Economics Relationship Specialty Start Date End Date Fausto Good P.A.-C. PCP - General 07/25/16 [address] [place] [address] documented as of this encounter
--- OUTSIDE RECORDS SUMMARY | 2022-01-23 07:21 | XMS_ITS | Encounter Summary ---
:1965 Author Organization [facility] Address [address] [place] [address] Care Team Providers Name Role Phone Unavailable Primary Care Provider Unavailable Encounter Details Date Type Department Care Team Description 09/12/2014 Hospital Encounter HX [facility] Mohan Vasquez P.A.-C. [address] [place] [address] (Wo rk) Social History Tobacco [...] do you attend lutheran or Never 2021 latter-day services? Do you [...] Sign Reading Time Taken Comments Blood Pressure 166/110 09/12/2014 2:27 PM CDT Pulse 64 09/12/2014 2:17 PM CDT Temperature - - Respiratory Rate 16 09/12/2014 2:17 PM CDT Oxygen Saturation - - Inhaled Oxygen Concentration - - Weight 83.7 kg (184 lb 8.4 oz) 09/12/2014 2:17 PM CDT Height 158.5 cm (5' 2.4) 09/12/2014 2:27 PM CDT Body Mass Index 33.32 09/12/2014 2:17 PM CDT documented in this encounter H&P Notes Ynes Vasquez P.A.-C. - 09/12/2014 1:17 PM CDT [id number] CHIEF COMPLAINT/REASON FOR VISIT History and physical exam. HISTORY OF PRESENT ILLNESS Hannah is a pleasant 49-year-old female who has a history of hypertension but she ran out of her medication quite a while ago and she needs to get it refilled. She also has a history of migraines but they have not bothered her very much once she switched cigarettes. She switched to rolling her own ciga rettes and says it does not bother her as much. She also has a history of anxiety but this has been much better controlled. 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 PAST MEDICAL/SURGICAL HISTORY Reviewed in the electronic medical record. FAMILY HISTORY Reviewed in electronic medical record. She is adopted so she does not know her parents. SYSTEMS REVIEW Pertinent positives include some pain in her left her wrist that has been bothering her for about the last month. She does not recall any specific injury and is wondering if there is anything that should be done about this. VITAL SIGNS Noted in the EMR. PHYSICAL EXAMINATION GENERAL: She appears in no acute distress. Blood pressure elevated 166/110. ENT: TMs no erythema. Throat no erythema. EYES: Pupils equal, round and reactive to light. NECK: No lymphadenopathy. No thyroid masses. HEART: Regular rate and rhythm. No murmurs. LUNGS: Clear to auscultation. ABDOMEN: Soft and nontender to palpation. BREASTS: Symmetrical. No masses appreciated. No axillary lymphadenopathy noted. EXTREMITIES: No lower extremity swelling was noted. IMPRESSION/REPORT/PLAN 1. Health maintenance. She is due for a mammogram. We will set this up. We are going to draw some fasting labs and I will see her back to discuss these. 2. Hypertension. This is out of control currently. We need to get her back on her lisinopril hydrochlorothiazide so I got this set up for her. She is going to check her blood pressure at home a couple times a week and bring these readings in when I see her back. We will do some lab work when I see rosalie and discuss these results. 3. Wrist pain. Today I placed her in a splint. She has some discomfort to palpation along the distalulna. This seems to be more of an overuse injury. There was no numbness or tingling in her fingers. I am going to place her in a wrist splint for the next week and see if this helps alleviate her symptoms. If it does not, she will let us know and we will proceed with further imaging when I see her back. If there are questions or problems in the meantime, she will let us know. 4. Migraines. When she gets migraine headaches, she says tramadol seems to help or Flexeril. This has worked in the past. I gave her a refill of these to use as necessary. If there are questions or problems, she will notify us. Ynes Vasquez PA-C/[place] Electronically Signed By: YNES VASQUEZ PA-C On: 09/14/2014 08:46 AM Source: [facility] MHSDOLBEYNONRADSYS Document Id: [id number] documented in this encounter Nursing Notes Sincere Funes L.PFarzanaNFarzana - 12/08/2014 9:23 AM CDT Panel management call Contacted patient in regards to being due for blood pressure recheck. Patient was to return for labs and f/u office visit. Declined at this time but will come in for blood pressure recheck at a nurse only visit. Will call back to schedule. Electronically Signed By: SINCERE FUNES LPN On: 12/08/2014 09:25 AM Source: [facility] 139shop Document Id: [id number] documented in this encounter Miscellaneous Notes Miscellaneous - Belle Funes R.N. - 09/04/2015 2:40 PM CDT *Medication Refill Msg From: BELLE FUNES RN To: JANA TALAMANTES LPN; Sent: 09/04/2015 14:40:51 CDT Subject: *Medication Refill Msg Caller is: ( ) Patient ( ) Mother ( ) Father ( ) Spouse ( ) Daughter ( ) Son ( ) Pharmacy ( ) Other: Provider: Pharmacy: Name of Medications Needing Refill:pt requested tramadol while ynes was gone - just to let you know - she may need a CSA> Last Refill Date: Additional Information: Last / Future Appointment: Disposition: ( ) Send to Pharmacy ( ) Call to Pharmacy ( ) Patient will sampler pickup Script ( ) Mail Rx to Patient [facility] [employer] Document Id: [id number] Miscellaneous - Belle Funes RLeonela - 09/04/2015 2:39 PM CDT *Medication Refill Msg From: BELLE FUNES RN To: SO RICO MD; Sent: 09/04/2015 14:39:44 CDT Subject: *Medication Refill Msg Caller is: ( ) Patient ( ) Mother ( ) Father ( ) Spouse ( ) Daughter ( ) Son ( ) Pharmacy ( ) Other: Provider: Pharmacy: [facility] fax to [phone] Name of Medications Needing Refill:tramadol 50mg Last Refill Date: Additional Information:see note in emr regarding tramadol on 08-30-15. pt is scheduling an appointment with ynes but will be out prior to getting in. will be out of town for 1 week. Last / Future Appointment: Disposition: ( ) Send to Pharmacy ( ) Call to Pharmacy ( ) Patient will sampler pickup Script ( ) Mail Rx to Patient Source: [facility] 139shop Document Id: [id number] Miscellaneous - Nan Meza L.P.N. - 08/28/2015 2:58 PM CDT *General Message-CSA Document Contains Addenda Addendum by NAN MEZA LPN on August 28, 2015 15:26:04 CDT Sent in ERROR Addendum by DARREN RAHMAN APRN, CNP on August 28, 2015 15:21:31 CDT From: DARREN RAHMAN APRN, CNP To: MAGALYS Rahman Nurse; Sent: 08/28/2015 15:21:31 CDT Subject: RE: *General Message-CSA Send to Ynes. From: NAN MEZA LPN ( Daniele Nurse) To: DARREN RAHMAN APRN, CNP; Sent: 08/28/2015 14:58:29 CDT Subject: *General Message-CSA This patient is eligible for Controlled Substance Prescribing Plan (CSPP). Patient meets the following inclusion criteria: i. Daily use > 3 months ii. 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 Name of medication: _Tramadol HCL Strength: _50 mg Frequency: _Take one tablet by mouth every 6 hours for 30 days as needed for pain. Route: _Orally Quantity of last refill: _50 Date of last refill: _08/10/2015 The patient would like to obtain the script by: [_] Given to patient [_] Patient to sampler pickup [_] supervisor mold yard by someone other than patient. Specific surrogate: _ [_] Mailed to patient [_] Mailed to pharmacy [_] Faxed to pharmacy A surrogate will sampler pickup the script. Name: _ Telephone number to reach patient: _ Source: [facility] 139shop Document Id: [id number] Miscellaneous - Belle Funes RFarzanaN. - 08/08/2015 4:21 PM CDT *Medication Refill Msg Document Contains Addenda Addendum by YNES VASQUEZ PA-C on August 09, 2015 12:11:12 CDT From: YNES VASQUEZ PA-C To: BELLE FUNES RN; Sent: 08/09/2015 12:11:12 CDT Subject: RE: *Medication Refill Msg I gave her 50 with a refill on 06/29 From: BELLE FUNES RN To: YNES VASQUEZ PA-C; Sent: 08/08/2015 16:21:07 CDT Subject: *Medication Refill Msg Caller is: ( ) Patient ( ) Mother ( ) Father ( ) Spouse ( ) Daughter ( ) Son ( ) Pharmacy ( ) Other: Provider: Pharmacy: [facility] fax to [phone] Name of Medications Needing Refill:tramadol HCL 50mg - take one tab po every 6 hours prn/pain Last Refill Date:07-20-15 #50 Additional Information: Last / Future Appointment: Disposition: ( ) Send to Pharmacy ( ) Call to Pharmacy ( ) Patient will sampler pickup Script ( ) Mail Rx to Patient Source: [facility] Document Id: [id number] Tony - Padmini Herrera R.N. - 06/30/2015 11:06 AM CDT tramadol Document Contains Addenda Addendum by JANA TALAMANTES LPN on June 30, 2015 13:55:27 CDT notified script faxed to [facility] Addendum by YNES VASQUEZ PA-C on June 30, 2015 11:36:19 CDT From: YNES VASQUEZ PA-C To: JANA TALAMANTES LPN; Sent: 06/30/2015 11:36:19 CDT Subject: FW: tramadol done From: PADMINI HERRERA RN ([facility] Medication Refill) To: YNES VASQUEZ PA-C; Sent: 06/30/2015 11:06:00 CDT Subject: tramadol Caller is: ( ) Patient ( ) Mother ( ) Father ( ) Spouse ( ) Daughter ( ) Son ( kya/fabrizio ) Pharmacy ( ) Other: Provider: [facility] Pharmacy: Name of Medications Needing Refill: tramadol 50 mg Last Refill Date: 06/13/15 qty 50 Additional Information:1 tab po every 6 hours prn pain...... Last / Future Appointment:09/12/14 Disposition: ( x ) Send to Pharmacy ( ) Call to Pharmacy ( ) Patient will sampler pickup Script ( ) Mail Rxto Patient Source: [facility] POWERCHART Document Id: [id number] Toyn - Belle Funes R.N. - 05/22/2015 4:53 PM CDT *Medication Refill Msg Document Contains Addenda Addendum by JANA TALAMANTES LPN on May 22, 2015 17:06:49 CDT notified Addendum by YNES VASQUEZ PA-C on May 22, 2015 16:58:14 CDT From: YNES VASQUEZ PA-C To: JANA TALAMANTES LPN; Sent: 05/22/2015 16:58:14 CDT Subject: RE: *Medication Refill Msg done From: BELLE FUNES RN ([facility] [place] Medication Refill) To: YNES VASQUEZ PA-C; Sent: 05/22/2015 16:53:49 CDT Subject: *Medication Refill Msg Caller is: ( ) Patient ( ) Mother ( ) Father ( ) Spouse ( ) Daughter ( ) Son ( ) Pharmacy ( ) Other: Provider: Pharmacy: [facility] fax [phone] Name of Medications Needing Refill:tramadol hcl 50mg tab - one tab po every 6 hours prn/pain for 30 days. Last Refill Date:04-30-15 #50 Additional Information: Last / Future Appointment:09-12-14 Disposition: ( ) Send to Pharmacy ( ) Call to Pharmacy ( ) Patient will sampler pickup Script ( ) Mail Rx to Patient Source: [facility] POWERCHART Document Id: [id number] Miscellaneous - Padmini Herrera R.N. - 02/06/2015 3:38 PM CST tramadol Document Contains Addenda Addendum by CLAUDY ANGUIANO LPN on 06 February 2015 16:42:00 SOFTWARE DEVELOPMENT COORDINATOR Rx faxed to pt. kya Hendricksied. Addendum by YNES VASQUEZ PA-C on 06 February 2015 16:31:05 SOFTWARE DEVELOPMENT COORDINATOR From: YNES VASQUEZ PA-C To: MAGALYS Vasquez Nurse; Sent: 02/06/2015 16:31:05 SOFTWARE DEVELOPMENT COORDINATOR Subject: FW: tramadol done From: PADMINI HERRERA RN ( [place] Medication Refill) To: YNES VASQUEZ PA-C; Sent: 02/06/2015 15:38:17 SOFTWARE DEVELOPMENT COORDINATOR Subject: tramadol Caller is: ( ) Patient ( ) Mother ( ) Father ( ) Spouse ( ) Daughter ( ) Son ( kya/fabrizio ) Pharmacy ( ) Other: Provider: [facility] Pharmacy: Name of Medications Needing Refill: tramadol 50 mg Last Refill Date: 01/02/15 qty 50 Additional Information: 1 tab po every 6 hours prn pain Last / Future Appointment: 09/12/14 Disposition: ( x ) Send to Pharmacy ( ) Call to Pharmacy ( ) Patient will sampler pickup Script ( ) Mail Rxto Patient Source: [facility] POWERCHART Document Id: [id number] Miscellaneous - Meche Chiu R.N. - 12/05/2014 3:59 PM CDT *Medication Refill Msg Document Contains Addenda Addendum by LUCILA PATEL CMA on 05 December 2014 16:57:28 CDT Faxed. Patient notified. Addendum by YNES VASQUEZ PA-C on 05 December 2014 16:53:31 CDT From: YNES VASQUEZ PA-C To: MAGALYS Vasquez Nurse; Sent: 12/05/2014 16:53:31 CDT Subject: FW: *Medication Refill Msg done From: MECHE CHIU RN To: YNES VASQUEZ PA-C; Sent: 12/05/2014 15:59:43 CDT Subject: *Medication Refill Msg Caller is: ( ) Patient ( ) Mother ( ) Father ( ) Spouse ( ) Daughter ( ) Son ( ) Pharmacy ( ) Other: Provider: Pharmacy: [facility] Name of Medications Needing Refill: Tramadol 50mg tab Last Refill Date: 11/07/14 #50 Additional Information: Last / Future Appointment: 09/12/14 Disposition: ( ) Send to Pharmacy ( ) Call to Pharmacy ( ) Patient will sampler pickup Script ( ) Mail Rx to Patient Source: [facility] POWERCHART Document Id: [id number] Miscellaneous - Ynes Vasquez P.A.-C. - 09/12/2014 5:58 PM CDT Ambulatory Patient Summary [address] [place], [place] [id number] Visit Information Name: HANNAH COONEY [facility] Number: [id number] Current Date: 09/12/2014 17:58:39 Physicians Attending Provider: YNES VASQUEZ PA-C Primary [...] tablet) 1 Tablet(s), Oral, once a day Routed to [id number] [place] [address] lisinopril-hydrochlorothiazide (lisinopril-hydrochlorothiazide 20 mg-12.5 mg oral tablet) 1 Tablet(s), Oral, once a day (Zestoretic) This is a CHANGE [facility] [address] [place] [address] traMADol (traMADol 50 mg oral tablet) 1 Tablet(s), Oral, every 6 hours as needed for Pain x 30 day(s) New Routed to [facility] Stop Taking the Following Medications: Medication list as of 09-12-14 17:58 Attention: If you have any medications at [...] Electronically Signed By: YNES VASQUEZ PA-C Signed On:12-SEP-2014 17:58:33 Your Allergies & Intolerances Substance Reaction Symptoms Category Comments amoxicillin Drug cephalosporins Drug penicillins Drug Ceclor Drug iodine Drug Your Problem List Problem Status Onset Comments Carpal Tunnel Syndrome Active 09/17/2007 Hypertension Active 03/08/2008 Allergic Reaction Active 04/18/2008 Ganglion Cyst Active 01/24/2009 Headache Migraine Active Your Upcoming Appointments Date Time Location Provider 10/10/2014 09:00 [facility] Mammo [facility] MA Room 1 10/10/2014 09:45 [facility] Lab [facility] Lab 10/24/2014 09[facility] Attention: Contact your local Clinic if further [...] if you dont have one. Go to [email or web address] and click on Create Your Account. Then, follow the directions to complete the online form. Youll be asked for your [facility] number which you can find at the top of this document. Your Goals/Additional instructions: Source: [facility] POWERCHART Document Id: [id number] Miscellaneous - Ynes Vasquez P.A.-C. - 09/12/2014 5:58 PM CDT Ambulatory Discharge Medication List [place] [address] [facility] [place] [id number] Visit Information Name: HANNAH COONEY [facility] Number: [id number] Visit Date: 09/12/2014 17:58:38 Attending Provider: YNES VASQUEZ PA-C Primary Care [...] tablet) 1 Tablet(s), Oral, once a day Routed to [address] [id number] lisinopril-hydrochlorothiazide (lisinopril-hydrochlorothiazide 20 mg-12.5 mg oral tablet) 1 Tablet(s), Oral, once a day (Zestoretic) This is a CHANGE Routed to [address] [address] traMADol (traMADol 50 mg oral tablet) 1 Tablet(s), Oral, every 6 hours as needed for Pain x 30 day(s) New Routed to [facility] Stop Taking the Following Medications: Medication list as of 09-12-14 17:58 Attention: If you have any medications at [...] Electronically Signed By: YNES VASQUEZ PA-C Signed On:12-SEP-2014 17:58:33 Additional Information: Source: [facility] POWERCHART Document Id: [id number] Miscellaneous - Sincere Funes L.PLeonela - 09/12/2014 2:27 PM CDT Ambulatory Vitals Height Weight Ambulatory Vitals Height Weight Entered On: 09/12/2014 14:28 CDT Performed On: 09/12/2014 14:27 CDT by SINCERE FUNES LPN Vitals/Ht/Wt Systolic Blood Pressure : 166 mmHg (>HHI) Diastolic Blood Pressure : 110 mmHg (>HHI) NIBP Mean : 129 mmHg BP Location : Right upper extremity Blood Pressure Cuff Size : Regular Height : 158.5 cm(Converted to: 5 ft 2 inch(es), 62 inch(es)) SINCERE FUNES LPN - 09/12/2014 14:27 CDT Source: [employer] Document Id: [id number] CDT!8 Miscellaneous - Sincere Funes L.P.NFarzaan - 09/12/2014 2:25 PM CDT PHQ-9 PHQ-9 Entered On: 09/12/2014 14:27 CDT Performed On: 09/12/2014 14:25 CDT by SINCERE FUNES LPN PHQ-9 Little interest or pleasure in doing things : Not at all Feeling down, depressed, or hopeless : Not at all Trouble falling or staying asleep, or sleeping too much : Nearly every day Feeling tired or having little energy : More than half the days Poor appetite or overeating : More than half the days Feeling bad about yourself or that you are a failure : Not at all Trouble concentrating on things : Not at all Moving or speaking slowly; restless or fidgety : Not at all Thoughts that you would be better off /hurting self : Not at all PHQ-9 Calculated Score : 7 Problems make work, home, or dealing with others : Not difficult at all SINCERE FUNES LPN - 09/12/2014 14:25 CDT Source: [employer] Document Id: [id number] CDT!13 Miscellnakul - Sincere Funes L.P.N. - 09/12/2014 2:23 PM CDT Health Assessment Health Assessment Entered On: 09/12/2014 14:24 CDT Performed On: 09/12/2014 14:23 CDT by SINCERE FUNES LPN Health Assessment Complete Health Assessment Complete or Modified : Annual Health Assessment Annual Health Assessment Completed : Yes SINCERE FUNES LPN - 09/12/2014 14:23 CDT Nutrition Nutrition Risk Factors by History Adult : None SINCERE FUNES LPN - 09/12/2014 14:23 CDT Functional Current Daily Living Assistance : None SINCERE FUNES LPN - 09/12/2014 14:23 CDT Dependent Habits Tobacco Use/Currently Using : Yes Exposure to Tobacco Smoke : Patient smokes Smoking Status : Current every day smoker SINCERE FUNES LPN - 09/12/2014 14:23 CDT Tobacco Use Grid Type : Cigarettes Cigarette Use Packs/Day : 1.0 SINCERE FUNES LPN - 09/12/2014 14:23 CDT Psychosocial Domestic Abuse Concerns : None Behavioral Health Screen/Safety Assmt : No Protestant Preference : Unknown SINCERE FUNES LPN - 09/12/2014 14:23 CDT Advance Directive Advanced Directives : No Advance Directive Additional Information : No SINCERE FUNES LPN - 09/12/2014 14:23 CDT Educ Needs Learning Style Preference Adult Grid Patient : None Family : None SINCERE FUNES LPN - 09/12/2014 14:23 CDT Source: [employer] Document Id: [id number] CDT!27 Miscellnakul - Sincere Funes L.P.NFarzana - 09/12/2014 2:17 PM CDT Adult Chair Car Attendant Intake/History Adult Chair Car Attendant Intake/History Entered On: 09/12/2014 14:23 CDT Performed On: 09/12/2014 14:17 CDT by SINCERE FUNES LPN Intake Chief Complaint : review PHQ-9/HYPERTENSION Temperature Core : 36.6 DegC(Converted to: 97.9 DegF) Peripheral Pulse Rate : 64 /min Respiratory Rate : 16 /min Systolic Blood Pressure : 170 mmHg (>HHI) Diastolic Blood Pressure : 110 mmHg (>HHI) NIBP Mean : 130 mmHg BP Location : Right upper extremity Blood Pressure Cuff Size : Regular Height : 158.5 cm(Converted to: 5 ft 2 inch(es), 62 inch(es)) Actual Weight : 83.7 kg(Converted to: 184 lb 8 oz) Weight Source : Standing scale Dosing Weight Clinic : 83.7 kg Clinic BSA : 1.92 Body Mass Index : 33.32 kg/m2 SINCERE FUNES LPN - 09/12/2014 14:17 CDT General Info Languages : Italian Is Patient Female and 13-50 no hysterectomy : Yes Status : Patient denies Are you ? : No SINCERE FUNES LPN - 09/12/2014 14:17 CDT Subjective Pain Symptoms : No SINCERE FUNES LPN - 09/12/2014 14:17 CDT Dependent Habits Tobacco Use/Currently Using : Yes Tobacco Use/Advised to Quit : Yes Exposure to Tobacco Smoke : Patient smokes Smoking Status : Current every day smoker SINCERE FUNES LPN - 09/12/2014 14:17 CDT Tobacco Use Grid Type : Cigarettes Cigarette Use Packs/Day : 1.0 SINCERE FUNES LPN - 09/12/2014 14:17 CDT Source: [facility] POWERCHART Document Id: [id number] CDT!33 documented in this encounter Plan of Treatment Not on filedocumented as of this encounter Visit Diagnoses Not on filedocumented in this encounter Additional Health Concerns Assessment Noted Time PHQ-9 Depression Total Score: 7 09/12/2014 2:25 PM CDT documented as of this encounter
--- OUTSIDE RECORDS SUMMARY | 2022-01-23 07:22 | XMS_ITS | Encounter Summary ---
:1965 Author Organization [facility] Address [address] [place] [address] Care Team Providers Name Role Phone Unavailable Primary Care Provider Unavailable Encounter Details Date Type Department Care Team Description 05/02/2008 Hospital Encounter HX NO MAPPING Calderon Farr M.D. Social History Tobacco Use Types Packs/Day Years [...] do you attend islam or Never 2021 jehovah's witness services? Do [...]
--- OUTSIDE RECORDS SUMMARY | 2022-01-23 07:22 | XMS_ITS | Encounter Summary ---
:1965 Author Organization [facility] Address [address] [place] [address] Care Team Providers Name Role Phone Unavailable Primary Care Provider Unavailable Encounter Details Date Type Department Care Team Description 06/10/2012 Hospital Encounter HX [facility] FB NURSE Mohan Lopez P.A.-C. [address] [place] [address] (Wo rk) Social History Tobacco [...] or relatives? How often do you attend orthodoxy or Never 2021 spiritism services? Do you belong to any clubs or No 02/16/2021 organizations such as orthodoxy groups, unions, fraternal or athletic groups, or [...] Sign Reading Time Taken Comments Blood Pressure 132/90 06/10/2012 4:32 PM CDT Pulse 92 06/10/2012 4:25 PM CDT Temperature - - Respiratory Rate 16 06/10/2012 4:25 PM CDT Oxygen Saturation - - Inhaled Oxygen Concentration - - Weight - - Height - - Body Mass Index - - documented in this encounter Miscellaneous Notes Miscellaneous - Courtney Baltazar L.P.N. - 06/10/2012 4:32 PM CDT Ambulatory Vitals Height Weight Ambulatory Vitals Height Weight Entered On: 06/10/2012 16:32 CDT Performed On: 06/10/2012 16:32 CDT by COURTNEY BALTAZAR/Ht/Wt Systolic Blood Pressure : 132 mmHg Diastolic Blood Pressure : 90 mmHg (HI) NIBP Mean : 104 mmHg BP Location : Right upper extremity Blood Pressure Cuff Size : Large COURTNEY BALTAZAR - 06/10/2012 16:32 CDT [facility] Document Id: [id number] CDT!7 Miscellaneous - Courtney Baltazar L.P.N. - 06/10/2012 4:25 PM CDT Ambulatory Vitals Height Weight Ambulatory Vitals Height Weight Entered On: 06/10/2012 16:28 CDT Performed On: 06/10/2012 16:25 CDT by COURTNEY BALTAZARs/Ht/Wt Peripheral Pulse Rate : 92 /min Respiratory Rate : 16 /min Systolic Blood Pressure : 140 mmHg Diastolic Blood Pressure : 90 mmHg (HI) NIBP Mean : 107 mmHg BP Location : Right upper extremity Blood Pressure Cuff Size : Regular COURTNEY BALTAZAR - 06/10/2012 16:25 CDT Source: [facility] MengcaoCHART Document Id: [id number] CDT!9 documented in this encounter Plan of Treatment Not on filedocumented as of this encounter Visit Diagnoses Not on filedocumented in this encounter Additional Health Concerns Assessment Noted Time PHQ-9 Depression Total Score: 10 06/03/2012 4:52 PM CD T documented as of this encounter
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
--- OUTSIDE RECORDS SUMMARY | 2022-01-23 07:22 | XMS_ITS | Encounter Summary ---
:1965 Author Organization [facility] Address [address] [place] [address] Care Team Providers Name Role Phone Unavailable Primary Care Provider Unavailable Encounter Details Date Type Department Care Team Description 07/10/2011 Hospital Encounter HX [facility] Mohan Good P.A.-C. [address] [place] [address] (Wo rk) Social History Tobacco [...] you attend jehovah's witness or Never 2021 mu-ism services? Do you [...] Sign Reading Time Taken Comments Blood Pressure 130/74 07/10/2011 3:32 PM CDT Pulse 80 07/10/2011 3:32 PM CDT Temperature - - Respiratory Rate 20 07/10/2011 3:32 PM CDT Oxygen Saturation - - Inhaled Oxygen Concentration - - Weight 83.5 kg (184 lb 1.4 oz) 07/10/2011 3:32 PM CDT Height 161 cm (5' 3.39) 07/10/2011 3:32 PM CDT Body Mass Index 32.21 07/10/2011 3:32 PM CDT documented in this encounter Progress Notes Ynes Good P.A.-C. - 07/10/2011 12:00 AM CDT [id number] CHIEF COMPLAINT/ REASON FOR VISIT Lump on her right arm and also a medication review. HISTORY OF PRESENT ILLNESS Hannah has a history of migraine headaches, she has a history of depression and she has a history of insomnia for which she has used medications in the past. She has had been following with Dr. Rust in [place] and he had her on citalopram. Her depression did not really seem to respond much to the increase in the citalopram. She was up to 40 milligrams a day. Unfortunately, she lost her insurance so she has been off of this for nearly a year. She also has a history of some occasional headaches that seem to respond nicely to Flexeril. She also has used Midrin in the past. She tried Imitrex at one time but thought it was too expensive so did not get a refill of this. She has problems with insomnia and uses trazodone at night time. She finds this to be helpful for insomnia as well as for her anxiety and depression. She noticed a lump on her right inner arm a couple days ago and it was red, hot and swollen and she made the appointment for today. She said today it seems as though it has improved a fair amount. VITAL SIGNS Vitals are noted in the electronic medical record. PHYSICAL EXAM GENERAL: She appears in no acute distress. On examination of her right arm there is a palpable lump that is approximately 2 cm in diameter underneath the skin. It is tender to the touch. There is no head on the skin from a possible puncture wound. It is freely movable. I did not appreciate any epitrochlear lymph nodes and no axillary lymph nodes are appreciated. HEART: Regular rate and rhythm, no murmurs. LUNGS: Clear to auscultation. IMPRESSION/REPORT/PLAN 1. Lump. This lump in her right inner arm has been improving over the last couple days but given the fact it was red, hot and swollen a couple days ago it certainly may be infectious. I recommend she apply some heat to it. I did not attempt to incise and drain at this time. I think we will continue to monitor it and it should continue to decrease in size and hopefully will completely resolve. If it does not we may need to consider excision of this lesion. 2. Depression. Her PHQ-9 score today was 18. Certainly this is not well controlled. She has many anxiety provoking things in her life. Will switch her from citalopram to Effexor XR and give her 75 milligrams once daily. I will see her back in a month to see how she responds to this medication. I will give her a refill of her trazodone as well which she has used in the past at night time. 3. Migraine headaches. She does not have one now but has had them in the past. I have had a hard time getting Midrin so I am going to switch her to Imitrex which is available as a generic and should not be terribly expensive. Will have her use 25 milligrams at the onset of the headache. She may repeat it one time. If it does not work we will have her increase it to 50 milligrams the next time she develops a headache. 4. Health maintenance. She is due for a complete history and physical. When I see her back in a month will do physical at that time. I also will set up a mammogram to be done in the meantime. She is in agreement with this plan. If there are any further questions or problems she will let us know. ANGELITO/crys Signed [facility] Electronically Signed By: YNES GOOD PA-C On: 07/15/2011 10:33 AM Source: [facility] MHSDOLBEYNONRADSYS Document Id: [id number] documented in this encounter Miscellaneous Notes Miscellaneous - Jana Talamantes L.PLeonela - 07/10/2011 4:54 PM CDT PHQ-9 PHQ-9 Entered On: 07/10/2011 16:55 CDT Performed On: 07/10/2011 16:54 CDT by JANA TALAMANTES PHQ-9 Little interest or pleasure in doing things : Several days Feeling down, depressed, or hopeless : Several days Trouble falling or staying asleep, or sleeping too much : Nearly every day Feeling tired or having little energy : Nearly every day Poor appetite or overeating : Nearly every day Feeling bad about yourself or that you are a failure : Several days Trouble concentrating on things : Nearly every day Moving or speaking slowly; restless or fidgety : Nearly every day Thoughts that you would be better off /hurting self : Not at all PHQ-9 Calculated Score : 18 Problems make work, home, or dealing with others : Very difficult JANA TALAMANTES - 07/10/2011 16:54 CDT Source: [facility] POWERCHART Document Id: [id number] Miscellaneous - Ynes Good P.A.-C. - 07/10/2011 4:18 PM CDT Ambulatory Patient Summary [address] [address] Visit Information Name: HANNAH COONEY Current Date: 07/10/2011 16:18:39 Physicians Attending Provider: YNES GOOD PA-C Primary Care Provider: NOMI RUST MD Your Medications Here is a list of your medications. It is important to take your medications as directed. Use a pillbox or chart to help remind you to take your medications. Please let your doctor or nurse know if you have problems taking your medications. Medication/Strength Dose Route Frequency Indications/Special Instructions/Comments sumatriptan (Imitrex 25 mg oral tablet) 25 mg Oral once as needed for Migraine headache repeat afterone hour if needed trazodone (trazodone 50 mg oral tablet) 50 mg Oral once a day (at bedtime) cyclobenzaprine (Flexeril 10 mg oral tablet) 10 mg Oral once a day venlafaxine (Effexor XR 75 mg oral capsule, extended release) 75 mg Oral once a day Attention: If you have any medications at home that are not on this list, DO NOT take them until youcontact your provider for clarification. Your Allergies & Intolerances Substance Reaction Symptoms Category Comments amoxicillin Drug cephalosporins Drug penicillins Drug Ceclor Drug iodine Drug Your Problem List Problem Status Onset Comments Gastroesophageal Reflux Disease Active 10/09/2006 Carpal Tunnel Syndrome Active 09/17/2007 Hypertension Active 03/08/2008 Allergic Reaction Active 04/18/2008 Ganglion Cyst Active 01/24/2009 Depression Major NOS Active 02/07/2009 Headache Migraine Active Your Upcoming Appointments Date Time Location Reason Provider No Appointments found Your Goals/Additional instructions: Source: [facility] POWERCHART Document Id: [id number] Miscellaneous - Ynes Good P.A.-C. - 07/10/2011 4:18 PM CDT Ambulatory Depart Summary [address] [address] Visit Information Name: HANNAH COONEY Visit Date: 07/10/2011 16:18:38 Attending Provider: YNES GOOD PA-C Primary Care Provider: NOMI RUST MD HANNAH COONEY LUPE has been given the following list of medications: Your Medications It is important to take your medications as directed. Use a pill box or chart to help remind you to take your medications. Please let your doctor or nurse know if you have problems taking your medications. Medication/Strength Dose Route Frequency Indications/Special Instructions/Comments sumatriptan (Imitrex 25 mg oral tablet) 25 mg Oral once as needed for Migraine headache repeat afterone hour if needed trazodone (trazodone 50 mg oral tablet) 50 mg Oral once a day (at bedtime) cyclobenzaprine (Flexeril 10 mg oral tablet) 10 mg Oral once a day venlafaxine (Effexor XR 75 mg oral capsule, extended release) 75 mg Oral once a day Attention: If you have any medications at home that are not on this list, DO NOT take them until youcontact your provider for clarification. Additional Information: Source: [facility] POWERCHART Document Id: [id number] Miscellaneous - Jana Talamantes, BonitaPFarzanaNFarzana - 07/10/2011 3:32 PM CDT Adult Grades 7 And 8 Teacher Intake/History Adult Grades 7 And 8 Teacher Intake/History Entered On: 07/10/2011 15:38 CDT Performed On: 07/10/2011 15:32 CDT by JANA TALAMANTES Intake Chief Complaint : lump on R arm and med check Temperature Core : 37.0C(Converted to: 98.6DegF) Peripheral Pulse Rate : 80/min Respiratory Rate : 20/min Systolic Blood Pressure : 130mmHg Diastolic Blood Pressure : 74mmHg NIBP Mean : 93mmHg BP Location : Left upper extremity Blood Pressure Cuff Size : Large Height : 161cm(Converted to: 5ft 3inch(es), 63.39inch(es)) Actual Weight : 83.5kg(Converted to: 184lb 1oz) Weight Source : Standing scale Dosing Weight Clinic : 83.50kg Clinic BSA : 1.93 Body Mass Index : 32.21kg/m2 JANA TALAMANTES - 07/10/2011 15:32 CDT Subjective Pain Symptoms : Yes JANA TALAMANTES 07/10/2011 15:32 CDT Pain Pain Assessment Grid Pain 1 Location : Upper arm (Comment: lump is tender to the touch [JANA TALAMANTES 07/10/2011 15:32 CDT]) JANA TALAMANTES 07/10/2011 15:32 CDT Dependent Habits Tobacco Use/Currently Using : Yes Exposure to Tobacco Smoke : Patient smokes Smoking Status : Current every day smoker JANA TALAMANTES 07/10/2011 15:32 CDT Tobacco Use Grid Type : Cigarettes Cigarette Use Packs/Day : 1.0 JANA TALAMANTES 07/10/2011 15:32 CDT Allergy Allergies (Active) amoxicillin Estimated Onset Date: Unspecified ; Created By: CHIP GUERRA LPN; Reaction Status: Active ; Category: Drug ; Substance: amoxicillin ; Type: Allergy ; Updated By: CHIP GUERRA LPN; Reviewed Date: 07/10/2011 15:30 CDT Ceclor Estimated Onset Date: Unspecified ; Created By: CHIP GUERRA LPN; Reaction Status: Active ; Category: Drug ; Substance: Ceclor ; Type: Allergy ; Updated By: CHIP GUERRA LPN; Reviewed Date: 07/10/2011 15:30 CDT cephalosporins Estimated Onset Date: Unspecified ; Created By: CHIP GURERA LPN; Reaction Status: Active ; Category: Drug ; Substance: cephalosporins ; Type: Allergy ; Updated By: CHIP GUERRA LPN; Reviewed Date: 07/10/2011 15:30 CDT iodine Estimated Onset Date: Unspecified ; Created By: CHIP GUERRA LPN; Reaction Status: Active ; Category: Drug ; Substance: iodine ; Type: Allergy ; Updated By: CHIP GUERRA LPN; Reviewed Date: 07/10/2011 15:30 CDT penicillins Estimated Onset Date: Unspecified ; Created By: CHIP GUERRA LPN; Reaction Status: Active ; Category: Drug ; Substance: penicillins ; Type: Allergy ; Updated By: CHIP GUERRA LPN; Reviewed Date: 07/10/2011 15:30 CDT [facility] Document Id: [id number] documented in this encounter Plan of Treatment Not on filedocumented as of this encounter Visit Diagnoses Not on filedocumented in this encounter Additional Health Concerns Assessment Noted Time PHQ-9 Depression Total Score: 18 07/10/2011 4:54 PM CD T documented as of this encounter
--- OUTSIDE RECORDS SUMMARY | 2022-01-23 07:22 | XMS_ITS | Encounter Summary ---
:1965 Author Organization [facility] Address [address] [place] [address] Care Team Providers Name Role Phone Unavailable Primary Care Provider Unavailable Encounter Details Date Type Department Care Team Description 04/22/2009 Hospital Encounter [facility] Love Bernard, CIVIL DESIGN SPECIALIST, C.N.P. [address] [place] [address] (Wo rk) Social History Tobacco Use Types [...] do you attend yarsani or Never 2021 buddhism services? Do you [...]
--- OUTSIDE RECORDS SUMMARY | 2022-01-23 07:22 | XMS_ITS | Encounter Summary ---
:1965 Author Organization [facility] Address [address] [place] [address] Care Team Providers Name Role Phone Unavailable Primary Care Provider Unavailable Encounter Details Date Type Department Care Team Description 04/22/2009 Hospital Encounter [facility] Fran Dudley, P.A.-C. [address] [place] [address] (Wo rk) Social History Tobacco Use Types [...] do you attend taoism or Never 2021 taoist services? Do you [...]
--- OUTSIDE RECORDS SUMMARY | 2022-01-23 07:22 | XMS_ITS | Encounter Summary ---
:1965 Author Organization [facility] Address [address] [place] [address] Care Team Providers Name Role Phone Unavailable Primary Care Provider Unavailable Encounter Details Date Type Department Care Team Description 03/16/2008 Hospital Encounter [facility] Hubert Long, EMILIA, C.N.P. Social History Tobacco Use Types Packs/Day Years [...] do you attend congregation or Never 2021 scientologist services? Do you [...]
--- OUTSIDE RECORDS SUMMARY | 2022-01-23 07:22 | XMS_ITS | Encounter Summary ---
:1965 Author Organization [facility] Address [address] [place] [address] Care Team Providers Name Role Phone Unavailable Primary Care Provider Unavailable Encounter Details Date Type Department Care Team Description 04/27/2010 Hospital Encounter [facility]X [facility] Provider, Histor ical Social History Tobacco Use Types Packs/Day Years [...] do you attend lutheran or Never 2021 denominational services? Do you [...] Assessment Noted Time PHQ-9 Depression Total Score: 17 04/16/2010 10:[address] documented as of this encounter
--- OUTSIDE RECORDS SUMMARY | 2022-01-23 07:22 | XMS_ITS | Encounter Summary ---
:1965 Author Organization [facility] Address [address] [place] [address] Care Team Providers Name Role Phone Unavailable Primary Care Provider Unavailable Encounter Details Date Type Department Care Team Description 02/08/2009 Hospital Encounter HX NO MAPPING Provider, Historical Social History Tobacco Use Types [...] do you attend mormonism or Never 2021 faith services? Do you [...] slept in a nursing home (including now)? Sex Assigned at Date Recorded Female 10/01/2017 7:47 AM CDT documented as of this encounter Plan of Treatment Not on filedocumented as of this encounter Visit Diagnoses Not on filedocumented in this encounter
--- OUTSIDE RECORDS SUMMARY | 2022-01-23 07:22 | XMS_ITS | Encounter Summary ---
:1965 Author Organization [facility] Address [address] [place] [address] Care Team Providers Name Role Phone Unavailable Primary Care Provider Unavailable Encounter Details Date Type Department Care Team Description 02/09/2009 Hospital Encounter HX NO MAPPING Provider, Historical [...] do you attend pentecostal or Never 2021 restoration services? Do you [...]
--- OUTSIDE RECORDS SUMMARY | 2022-01-23 07:22 | XMS_ITS | Encounter Summary ---
:1965 Author Organization [facility] Address [address] [place] [address] Care Team Providers Name Role Phone Unavailable Primary Care Provider Unavailable Encounter Details Date Type Department Care Team Description 05/24/2008 Hospital Encounter [facility]X [facility] Mariusz Vela M.D. [address] [place] [address] (Wo rk) Social History Tobacco Use Types [...] do you attend taoist or Never 2021 mu-ism services? Do you [...]
--- OUTSIDE RECORDS SUMMARY | 2022-01-23 07:22 | XMS_ITS | Encounter Summary ---
:1965 Author Organization [facility] Address [address] [place] [address] Care Team Providers Name Role Phone Unavailable Primary Care Provider Unavailable Encounter Details Date Type Department Care Team Description 09/28/2012 Hospital Encounter [facility]X [facility] Moahn Good P.A.-C. [address] [place] [address] (Wo rk) Social History Tobacco [...] or relatives? How often do you attend gnosticist or Never 2021 caodaism services? Do you belong to any clubs or No 02/16/2021 organizations such as gnosticist groups, unions, fraternal or athletic groups, or [...] Sign Reading Time Taken Comments Blood Pressure 130/90 09/28/2012 4:13 PM CDT Pulse 80 09/28/2012 4:13 PM CDT Temperature - - Respiratory Rate 14 09/28/2012 4:13 PM CDT Oxygen Saturation - - Inhaled Oxygen Concentration - - Weight 86 kg (189 lb 9.5 oz) 09/28/2012 4:13 PM CDT Height 160 cm (5' 2.99) 09/28/2012 4:13 PM CDT Body Mass Index 33.59 09/28/2012 4:13 PM CDT documented in this encounter Progress Notes Ynes Good P.A.-C. - 09/28/2012 3:51 PM CDT [id number] CHIEF COMPLAINT/REASON FOR VISIT Abdominal discomfort. HISTORY OF PRESENT ILLNESS Kaitlin is a pleasant 47-year-old female who had sudden onset of abdominal discomfort that occurred about 2 weeks ago. She was seen in the Emergency Room and had a CT scan of her abdomen done. The CT scan of her abdomen showed a nonobstructive 3 to 4 mm stone in the upper pole of the right kidney. Her pain is more so on the left side of her abdomen though. She was treated with Vicodin and was sent home. She says over the last couple of weeks the pain has been gradually improving, but has not gone away. She denies any vaginal discharge. She said she had her period just before this episode. Her periods have always been irregular. We did a Pap smear in June of this and it was normal. She has not had dyspareunia, but her abdominal discomfort does persist. Also on her CT scan she was found have a thickening of her uterus and it was suggested that she obtain a pelvic ultrasound. VITAL SIGNS Noted in the electronic medical record. PHYSICAL EXAMINATION GENERAL: She appears in no acute distress. HEART: Regular rate and rhythm. No murmurs. LUNGS: Clear to auscultation. ABDOMEN: Shows positive bowel sounds. There is a fairly loud abdominal bruits that I heard best around the umbilicus. Her abdomen is soft to palpation with some mild abdominal discomfort just below herumbilicus. She denies any rebound tenderness today. IMPRESSION/REPORT/PLAN Abdominal discomfort: Given her abnormal CT findings, we will set her up for a transvaginal and pelvic ultrasound. She also has this abnormal bruit, which may or may not be related to her discomfort. We will proceed further once the ultrasound is obtained. I did refill her Vicodin because she uses this at nighttime for her discomfort. She denies any pain with urination or abnormalities with her bowels. If she does develop any change in her symptoms or worsening of her symptoms in the meantime she will let us know; otherwise we will notify her when we get the results of her ultrasound. Ynes Good PA-C/becka Electronically Signed By: YNES GOOD PA-C On: 10/01/2012 03:08 PM Source: [facility] [email or web address] Document Id: [id number] documented in this encounter Nursing Notes Sincere Rogers LFarzanaP.N. - 09/01/2014 10:32 AM CDT Panel management call Contacted patient in regards to being due for annual/PHQ-9/HTN and med review with Leatha. Transferred to scheduling. Electronically Signed By: SINCERE ROGERS LPN On: 09/01/2014 10:33 AM Source: [facility] POWERCHART Document Id: [id number] documented in this encounter Miscellaneous Notes Miscellaneous - Ynes Good P.A.-C. - 09/28/2012 5:18 PM CDT Ambulatory Depart Summary [address] [address] Visit Information Name: KAITLIN COONEY [facility] Number: [id number] Visit Date: 09/28/2012 17:18:51 Attending Provider: YNES GOOD PA-C Primary Care Provider: NOMI RUST MD KAITLIN COONEY has been given the following list of medications: Your Medications It is important to take your medications as directed. Use a pill box or chart to help remind you to take your medications. Please let your doctor or nurse know if you have problems taking your medications. Medication/Strength Dose Route Frequency Indications/Special Instructions/Comments/Notes HYDROcodone-acetaminophen (Vicodin 5 mg-500 mg oral tablet) 1 tab(s) Oral every 6 hours as needed for Pain No more than 4,000mg acetaminophen/24hrs *lisinopril-hydrochlorothiazide (lisinopril-hydrochlorothiazide 20 mg-12.5 mg oral tablet) 1 tab(s) Oral once a day (Zestoretic) venlafaxine (Effexor XR 75 mg oral capsule, extended release) 75 mg Oral once a day *lisinopril (lisinopril 10 mg oral tablet) 10 mg Oral once a day *buPROPion (Wellbutrin XL 300 mg/24 hours oral tablet, extended release) 300 mg Oral once a day sumatriptan (Imitrex 25 mg oral tablet) 25 mg Oral once as needed for Migraine headache repeat afterone hour if needed cyclobenzaprine (Flexeril 10 mg oral tablet) 10 mg Oral once a day * You have let us know that you are not taking this medication as listed. Please talk with your primary care provider or the health care provider who prescribed the medication as soon as possible. Attention: If you have any medications at home that are not on this list, DO NOT take them until youcontact your provider for clarification. Additional Information: Source: [facility] POWERCHART Document Id: [id number] Miscellaneous - Ynes Good P.A.-C. - 09/28/2012 5:18 PM CDT Ambulatory Patient Summary [id number] [place] [address] Visit Information Name: KAITLIN COONEY [facility] Number: [id number] Current Date: 09/28/2012 17:18:52 Physicians Attending Provider: YNES GOOD PA-C Primary Care Provider: NOMI RUST MD Your Medications Here is a list of your medications. It is important to take your medications as directed. Use a pillbox or chart to help remind you to take your medications. Please let your doctor or nurse know if you have problems taking your medications. Medication/Strength Dose Route Frequency Indications/Special Instructions/Comments/Notes HYDROcodone-acetaminophen (Vicodin 5 mg-500 mg oral tablet) 1 tab(s) Oral every 6 hours as needed for Pain No more than 4,000mg acetaminophen/24hrs *lisinopril-hydrochlorothiazide (lisinopril-hydrochlorothiazide 20 mg-12.5 mg oral tablet) 1 tab(s) Oral once a day (Zestoretic) venlafaxine (Effexor XR 75 mg oral capsule, extended release) 75 mg Oral once a day *lisinopril (lisinopril 10 mg oral tablet) 10 mg Oral once a day *buPROPion (Wellbutrin XL 300 mg/24 hours oral tablet, extended release) 300 mg Oral once a day sumatriptan (Imitrex 25 mg oral tablet) 25 mg Oral once as needed for Migraine headache repeat afterone hour if needed cyclobenzaprine (Flexeril 10 mg oral tablet) 10 mg Oral once a day * You have let us know that you are not taking this medication as listed. Please talk with your primary care provider or the health care provider who prescribed the medication as soon as possible. Attention: If you have any medications at [...] Upcoming Appointments Date Time Location Reason Provider 10/01/2012 09:30 [facility] Ultrasound abdominal pain, thickened uterus on CT, abd bruit on exam [facility] US Room 1 Your Goals/Additional instructions: Source: [facility] POWERCHART Document Id: [id number] Miscellaneous - Jana Talamantes L.P.N. - 09/28/2012 4:13 PM CDT Adult Keno Writer / Runner Intake/History Adult Keno Writer / Runner Intake/History Entered On: 09/28/2012 16:17 CDT Performed On: 09/28/2012 16:13 CDT by JANA TALAMANTES Intake Systolic Blood Pressure : 130 mmHg Diastolic Blood Pressure : 90 mmHg (HI) NIBP Mean : 103 mmHg BP Location : Left upper extremity Blood Pressure Cuff Size : Large JANA TALAMANTES - 09/28/2012 16:18 CDT Chief Complaint : still has lower L back pain and f/u from er visit Temperature Core : 36.5 DegC(Converted to: 97.7 DegF) Peripheral Pulse Rate : 80 /min Respiratory Rate : 14 /min Height : 160 cm(Converted to: 5 ft 3 inch(es), 62.99 inch(es)) Actual Weight : 86 kg(Converted to: 189 lb 10 oz) Weight Source : Standing scale Dosing Weight Clinic : 86 kg Clinic BSA : 1.96 Body Mass Index : 33.59 kg/m2 JANA TALAMANTES 09/28/2012 16:13 CDT General Info Information Given By : Patient Languages : Romansh JANA TALAMANTES 09/28/2012 16:13 CDT Subjective Pain Symptoms : Yes JANA TALAMANTES 09/28/2012 16:13 CDT Pain Pain Assessment Grid Pain 1 Location : Lower back Intensity : 4 JANA TALAMANTES 09/28/2012 16:13 CDT Dependent Habits Tobacco Use/Currently Using : Yes Exposure to Tobacco Smoke : Patient smokes Smoking Status : Current every day smoker JANA TALAMANTES 09/28/2012 16:13 CDT Tobacco Use Grid Type : Cigarettes Cigarette Use Packs/Day : 1.0 JANA TALAMANTES - 09/28/2012 16:13 CDT Source: [facility] [email or web address] Document Id: [id number] CDT!7 documented in this encounter Plan of Treatment Not on filedocumented as of this encounter Visit Diagnoses Not on filedocumented in this encounter Additional Health Concerns Assessment Noted Time PHQ-9 Depression Total Score: 7 07/01/2012 5:37 PM CDT documented as of this encounter
--- OUTSIDE RECORDS SUMMARY | 2022-01-23 07:22 | XMS_ITS | Encounter Summary ---
:1965 Author Organization [facility] Address [address] [place] [address] Care Team Providers Name Role Phone Unavailable Primary Care Provider Unavailable Encounter Details Date Type Department Care Team Description 04/16/2010 Hospital Encounter HX [facility] Jj Woodward M.D. [address] [place], [place] [phone] (Wo rk) Social History [...] do you attend taoist or Never 2021 congregational services? Do you [...] Date/Time Associated Comments Diagnosis BI BREAST SCREENING Routine 04/16/2010 12:32 Resu lts for this BILATERAL PM SAFE AND VAULT INSTALLER procedure are i n the results section. ZZPATHOLOGY NON-POWER PLANT TECHNICIAN Routine 04/16/2010 12:00 Resu lts for this CYTOLOGY AM SAFE AND VAULT INSTALLER procedure are i n the results section. documented in this encounter Results BI Breast Screening Bilateral (04/16/2010 12:32 PM SAFE AND VAULT INSTALLER) Anatomical Region Laterality Modality Breast Bilateral Mammography Specimen (Source) Anatomical Collection Method Collection Time Re ceived Time Location / / Volume Laterality 04/16/2010 12:32 PM SAFE AND VAULT INSTALLER Narrative 04/17/2010 8:56 AM SAFE AND VAULT INSTALLER Comparison with 10/30/2007, 06/30/2006. Bilateral digital screening mammogram de monstrates heterogeneously dense breast parenchyma bilaterally. ??Breast density diminishes mammographic sensitivity for detection of malignancy. ??In the left upper outer middle depth, there is a small region of asymme tric breast parenchyma. ??Patient will be recalled for additional spot (round p addle) compression views left CC, left MLO and prescheduled for ultrasound pending the results of the left unilateral digital diagnostic mammogram. ??Nothing for malignancy within the right breast. CODE: 0-INCOMPLETE - NEEDS ADDITIONAL IM AGING EVALUATION Appropriate letter sent. Full field digital mammography is used a nd Computer Aided Detection is performed on the digital mammogram image s. FOR RADIOLOGY USE ONLY: ??___Results int o computer ??___Letter written and sent ___2 copies of report made ??___Form to materials scheduler ??___Patient called ___Written in incomplete book ??___Preli minary report to doctor Romario Snell, ?? akg ?D: 0 04/16/2010T: 04/16/2010 12:22 pm M.DFarzana Procedure Note Romario Snell M.D. / Provider, Estefania marcum M.D. - 07/03/2016 Comparison with 10/30/2007, 06/30/2006. Bilateral digital screening mammogram de monstrates heterogeneously dense breast parenchyma bilaterally. Breast de nsity diminishes mammographic sensitivity for detection of malignancy. In the left upper outer middle depth, there is a small region of asymme tric breast parenchyma. Patient will be recalled for additional spot (round p addle) compression views left CC, left MLO and prescheduled for ultrasound pending the results of the left unilateral digital diagnostic mammogram. Nothing for malignancy within the right breast. CODE: 0-INCOMPLETE - NEEDS ADDITIONAL IM AGING EVALUATION Appropriate letter sent. Full field digital mammography is used a nd Computer Aided Detection is performed on the digital mammogram image s. FOR RADIOLOGY USE ONLY: ___Results into computer ___Letter written and sent ___2 copies of report made ___Form to [facility] ___Patient called ___Written in incomplete book ___Prelimi zechariah report to doctor jermaine Carcamo T: 12:22 pm Latrice Desi Turcios(R), R.TFarzana(R)(M) [facility] [place] [facility]EDU RES ZZPATHOLOGY NON-POWER PLANT TECHNICIAN CYTOLOGY (04/16/2010 12:00 AM SAFE AND VAULT INSTALLER) Specimen (Source) Anatomical Location Collection Method / Collectio n Time Received Time / Laterality Volume 04/16/[address] [facility] - 04/26/19 11 10:46 AM CDT PATIENT IMAGES Choose the Image button to view related documents. Historical Provider LAB PATHOLOGY/CYTOLOGY ORDER CHERI Performing Organization Address City/State/ZIP Code Phon e Number [facility] documented in this encounter Visit Diagnoses Not on filedocumented in this encounter Additional Health Concerns Assessment Noted Time PHQ-9 Depression Total Score: 17 04/16/2010 10:[address] documented as of this encounter
--- OUTSIDE RECORDS SUMMARY | 2022-01-23 07:22 | XMS_ITS | Encounter Summary ---
:1965 Author Organization [facility] Address [address] [place] [id number] Care Team Providers Name Role Phone Unavailable Primary Care Provider Unavailable Encounter Details Date Type Department Care Team Description 01/24/2009 Hospital Encounter HX [facility] FAMILYPRA Hubert [...] you attend latter day or Never 2021 methodist services? Do you [...]
--- OUTSIDE RECORDS SUMMARY | 2022-01-23 07:22 | XMS_ITS | Encounter Summary ---
:1965 Author Organization [facility] Address [address] [place] [address] Care Team Providers Name Role Phone Unavailable Primary Care Provider Unavailable Encounter Details Date Type Department Care Team Description 07/01/2012 Hospital Encounter [facility]X [facility] Mohan Good P.A.-C. [address] [place] [address] (Wo rk) Social History Tobacco [...] do you attend taoism or Never 2021 sabianist services? Do you [...] Sign Reading Time Taken Comments Blood Pressure 140/88 07/01/2012 4:16 PM CDT Pulse 76 07/01/2012 4:16 PM CDT Temperature - - Respiratory Rate 16 07/01/2012 4:16 PM CDT Oxygen Saturation - - Inhaled Oxygen Concentration - - Weight 86 kg (189 lb 9.5 oz) 07/01/2012 4:16 PM CDT Height 160 cm (5' 2.99) 07/01/2012 4:16 PM CDT Body Mass Index 33.59 07/01/2012 4:16 PM CDT documented in this encounter Progress Notes Ynes Good P.A.-C. - 07/01/2012 3:54 PM CDT [id number] CHIEF COMPLAINT/REASON FOR VISIT History and physical exam. HISTORY OF PRESENT ILLNESS Hannah is a very pleasant 46-year-old female who I have been following for her hypertension as well as depression. I saw her last month and at that time we adjusted her blood pressure medication. She had previously been on hydrochlorothiazide but has been off of it for sometime because she did not like it. We started on lisinopril and she had her blood pressure checked since then and it continues to be elevated. She also a history of depression that has been persistent. Her Wellbutrin that she had been on did not seem to be doing as much as she would like it to. Her PHQ-9 score a month ago was 10 and today it is 7. She is wondering about possibly trying something else for her symptoms. She does think that the gloomy weather does not really help and she does have quite a stressful job.. PAST MEDICAL/SURGICAL HISTORY Her past medical history is significant for carpal tunnel syndrome that she has been able to treat symptomatically. She has a history of depression as mentioned the HPI. She has history of a ganglion cyst that flares up once in awhile but this is tolerable. She has a remote history of esophageal reflux disease that she tolerates. She has a history of migraine headaches for which she takes Imitrex. She gets migraine headaches about once every other week. She uses Imitrex occasionally but this is expensive so she tries to get by with just pain medications. She also has a history of hypertension as mentioned in the history present illness. Her past surgical history is significant for tonsillectomy and adenoidectomy as a child. She has also had cholecystectomy as well as a ganglion cyst removal. SOCIAL HISTORY She drinks alcohol very infrequently. if at all she smokes 9 cigarettes per day but she is planning to quit on July 11. She does not use illegal drugs. Her diet is very general and could use some improvement. Her exercise level, she walked 4 miles the other day and said she lived through it. She is going to try to exercise more. FAMILY HISTORY Mother and father are unknown because she is adopted. SYSTEMS REVIEW Pertinent positives noted in the HPI all others are negative. VITAL SIGNS Noted in the EMR GENERAL: She appears no acute distress. ENT: TMs nonerythematous. Throat no erythema. NECK: No lymphadenopathy. No thyroid masses. HEART: Regular rate and rhythm, no murmurs. LUNGS: Clear to auscultation. ABDOMEN: Positive bowel sounds, soft and nontender palpation. BREAST: Symmetrical. No masses appreciated. No dimpling, retractions were noted. GENITALIA: Normal external female genitalia. Speculum exam was done and cervix was visualized. Pap smear was obtained. Bimanual exam shows no cervical motion tenderness. No adnexal masses or discomfortwas appreciated. Lower extremities without edema. NEURO exam. Deep tendon reflexes present 2+/4 in the patellar reflexes bilaterally. IMPRESSION/REPORT/PLAN 1. Health maintenance. I will notify her when I get the results of her Pap smear. I discussed her lab work with her which had been drawn prior to this visit and there were no abnormalities noted. She has an excellent lipid profile with an exception of a slightly low HDL. She will set up her mammogram because she had this set up originally and missed the appointment. 2. His depression. Her PHQ-9 score a little better today but she would like to try a different medication. I am going to switch her to Effexor 75 mg daily. I will see her back in a month and see how she does with this. 3. Migraines. These have been chronic. I am going to increase the dose of her antihypertensive whichhopefully will give her some benefit from her migraines as well. Also been found to have some improvement from antidepressants and possibly the Effexor will have an effect on these. If it does not, franklin let us know. 4. Hypertension. I am going to increase her lisinopril to 20 mg and 12.5 of hydrochlorothiazide. Franklin start on this today and I will see back in a month for recheck. She will notify us sooner if she has any further questions or problems. Ynes Good PA-C/noam Electronically Signed By: YNES GOOD PA-C On: 07/02/2012 05:29 PM Source: [facility] MHSDOLBEYNONRADSYS Document Id: [id number] documented in this encounter Nursing Notes Sincere Rogers, L.P.N. - 05/12/2014 1:39 PM CDT Panel management call Contacted patient in regards to being due for annual/PHQ-9 /HTN review with Leatha. Patient transferred to [facility]. Patient disconnected during transfer. PSR will call her back. Electronically Signed By: SINCERE ROGERS LPN On: 05/12/2014 01:41 PM Source: [facility] POWERCHART Document Id: [id number] documented in this encounter Miscellaneous Notes Miscellaneous - Ynes Good P.A.-C. - 07/09/2012 12:49 PM CDT Results Notification Document Contains Addenda Addendum by JANA TALAMANTES on 09 Jul 2012 14:23:27 CDT mailed out From: YNES GOOD PA-C To: JANA TALAMANTES; Sent: 07/09/2012 12:49:49 CDT ! Show up: 07/09/2012 17:49:49 [facility] Subject: Results Notification Actions: Note to Nurse Reminder Comments: please send card of normal results Results: Date Result Name Value 07/01/2012 17:15 Spec Desc-Ross See Comment 07/01/2012 17:15 ThPrep Scrn Accn-Ross [id number] 07/01/2012 17:15 ThPrep Scrn Cyto-Ross See Comment 07/01/2012 17:15 ThPrep Scrn Fnl-Ross See Comment [facility] Document Id: [id number] Electronically signed by [facility] Restaurant Bartender [id number] at 07/10/2016 1:59 PM CDT Miscellaneous - Jana Talamantes, L.P.N. - 07/01/2012 5:37 PM CDT PHQ-9 PHQ-9 Entered On: 07/01/2012 17:38 CDT Performed On: 07/01/2012 17:37 CDT by JANA TALAMANTES PHQ-9 Little interest or pleasure in doing things : Several days Feeling down, depressed, or hopeless : Several days Trouble falling or staying asleep, or sleeping too much : Several days Feeling tired or having little energy : Several days Poor appetite or overeating : Several days Feeling bad about yourself or that you are a failure : Several days Trouble concentrating on things : Several days Moving or speaking slowly; restless or fidgety : Not at all Thoughts that you would be better off /hurting self : Not at all PHQ-9 Calculated Score : 7 JANA TALAMANTES - 07/01/2012 17:37 CDT [facility] Document Id: [id number] CDT!12 Miscellnakul - Jana Talamantes, L.P.N. - 07/01/2012 4:16 PM CDT Adult Marking Machine Operator Intake/History Adult Marking Machine Operator Intake/History Entered On: 07/01/2012 16:19 CDT Performed On: 07/01/2012 16:16 CDT by JANA TALAMANTES Intake Chief Complaint : physical Temperature Core : 36.3 DegC(Converted to: 97.3 DegF) (LOW) Peripheral Pulse Rate : 76 /min Respiratory Rate : 16 /min Systolic Blood Pressure : 140 mmHg Diastolic Blood Pressure : 88 mmHg NIBP Mean : 105 mmHg BP Location : Left upper extremity Blood Pressure Cuff Size : Large Height : 160 cm(Converted to: 5 ft 3 inch(es), 62.99 inch(es)) Actual Weight : 86 kg(Converted to: 189 lb 10 oz) Weight Source : Standing scale Dosing Weight Clinic : 86 kg Clinic BSA : 1.96 Body Mass Index : 33.59 kg/m2 JANA TALAMANTES - 07/01/2012 16:16 CDT General Info Information Given By : Patient Languages : Turkmen JANA TALAMANTES 07/01/2012 16:16 CDT Subjective Pain Symptoms : No JANA TALAMANTES 07/01/2012 16:16 CDT Dependent Habits Tobacco Use/Currently Using : Yes Exposure to Tobacco Smoke : Patient smokes Smoking Status : Current every day smoker JANA TALAMANTES 07/01/2012 16:16 CDT Tobacco Use Grid Type : Cigarettes Cigarette Use Packs/Day : 1.0 JANA TALAMANTES 07/01/2012 16:16 CDT Source: [facility] POWERCHART Document Id: [id number] CDT!30 documented in this encounter Plan of Treatment Not on filedocumented as of this encounter Procedures Procedure Name Priority Date/Time Associated Diagnosis Comme nts THINPREP SCREEN HPV Routine 07/01/2012 5:15 PM Re sults for this REFLEX CDT procedure are i n the results section. documented in this encounter Results Pathology ThinPrep Screen HPV Reflex (07/01/2012 5:15 PM CDT) [facility] Method Time Signature Interpretation [id number] POWERCHART HXThPrep Scrn See Comment POWERCHART [facility] Comment: A. ??ThinPrep Pap Test Screen (Cervical/ Endocervical HPV Reflex): Satisfactory for evaluation. Inadequate endocervical/transformation z one component Negative for intraepithelial lesion or m alignancy. Comment: An inadequate endocervical/lobo sformational zone component is not necessarily an indicati on for immediately repeating the pap. Correlation with the history an d clinical exam are required. HXThPrep Scrn Cyto-Garber See Comment [facility] RCHART Comment: Report electronically signed by EMILY Whitney(ASCP) 07/09/2012 08:24 Interpreted by: EMILY Whitney(ASCP) HX Spec Desc-Garber See Comment POWERCHART Comment: A. ??ThinPrep Pap Test Screen (Cervical/ Endocervical HPV Reflex): Received cloudy specimen in ThinPrep via l. Test Performed by: [place] [address] Manual Lathe Operator: Fausto mederos III, M.D. Specimen (Source) Anatomical Collection Method Collection Time Re ceived Time Location / / Volume Laterality Cervix/Endocervix 07/01/2012 5:15 PM CDT Ynes Good P.A.-C. LAB PAP PATHDX ORDERABLES Performing Organization Address City/State/ZIP Code Phon e Number POWERCHART documented in this encounter Visit Diagnoses Not on filedocumented in this encounter Additional Health Concerns Assessment Noted Time PHQ-9 Depression Total Score: 7 07/01/2012 5:37 PM CDT documented as of this encounter
--- OUTSIDE RECORDS SUMMARY | 2022-01-23 07:22 | XMS_ITS | Encounter Summary ---
:1965 Author Organization [facility] Address [address] [place] [address] Care Team Providers Name Role Phone Unavailable Primary Care Provider Unavailable Encounter Details Date Type Department Care Team Description 06/25/2012 Hospital Encounter HX [facility] Mohan Good P.A.-C. [address] [place] [address] (Wo rk) Social History [...] or relatives? How often do you attend oriental orthodox or Never 2021 druze services? Do you belong to any clubs or No 02/16/2021 organizations such as oriental orthodox groups, unions, fraternal or athletic groups, or [...] Associated Comments Diagnosis LIPID PANEL, S Routine 06/25/2012 2:36 PM Results for this CDT procedure are i n the results section. AUTOMATED Routine 06/25/2012 2:36 PM Results f or this DIFFERENTIAL, B CDT procedure ar e in the results section. CBC WITH DIFFERENTIAL, Routine 06/25/2012 2:36 PM Results for this B CDT procedure are i n the results section. COMPREHENSIVE Routine 06/25/2012 2:36 PM Results for this METABOLIC PANEL, S/P CDT procedu re are in the results section. documented in this encounter Results Automated Differential (06/25/2012 2:36 PM CDT) P athologist Signature Neutro % 62.4 34.0 - POWERCHART 71.1 Lymphocytes % 24.6 19.3 - POWERCHART 51.7 HX Pleasants % 11.3 4.7 - 12.5 POWERCHART HX Eos % 1.2 0.7 - 5.8 POWERCHART HX Baso % 0.5 0.1 - 1.2 POWERCHART Absolute 4.79 1.70 - POWERCHART Neutrophils 7.00 109L Lymphocytes 1.89 0.90 - POWERCHART 2.90 X109L Monocytes 0.87 0.30 - POWERCHART 0.90 X109L Eosinophils 0.09 0.05 - POWERCHART 0.50 X109L Absolute 0.04 0.00 - POWERCHART Basophil 0.30 X109L Specimen Anatomical Collection Method Collection Time Receive d Time (Source) Location / / Volume Laterality Blood 06/25/2012 2:36 PM 3 2:36 CDT PM CDT Fausto Good P.A.-C. LAB BLOOD ADD-ON Performing Organization Address City/State/ZIP Code Phon e Number POWERCHART (ABNORMAL) CBC with Differential (06/25/2012 2:36 PM CDT) [facility] gist Method Time Signature Leukocytes 7.7 3.4 - 10.5 POWERCHART X109L Erythrocytes 4.68 3.90 - POWERCHART 5.03 [id number] Hemoglobin 14.4 12.0 - POWERCHART 15.5 GDL Hematocrit 41.2 34.9 - POWERCHART 44.5 MCV 88.0 82.0 - POWERCHART 98.0 FL Platelet Count 236 150 - 450 POWERCHART X109L HX RDW 11.8 (L) 11.9 - POWERCHART 15.5 HXDifferential? Auto POWERCHART Specimen (Source) Anatomical Collection Method Collection Time Re ceived Time Location / / Volume Laterality Blood 06/25/2012 2:36 PM CDT Fausto Good P.A.-C. LAB BLOOD ADD-ON Performing Organization Address City/State/ZIP Code Phon e Number POWERCHART (ABNORMAL) Lipid Panel (06/25/2012 2:36 PM CDT) [facility] Method Time Signature Cholesterol, 144 0 - 200 POWERCHART Total MGDL HX HDL 37.0 (L) 40.0 - POWERCHART 60.0 MGDL Triglycerides 113 0 - 150 POWERCHART MGDL Calculated LDL 84 0 - 100 POWERCHART MGDL Specimen (Source) Anatomical Collection Method Collection Time Re ceived Time Location / / Volume Laterality Blood 06/25/2012 2:36 PM CDT Fausto Good P.A.-C. LAB BLOOD ADD-ON Performing Organization Address City/State/ZIP Code Phon e Number POWERCHART CMP (Comprehensive Metabolic Panel) (06/25/2012 2:36 PM CDT) [facility] gist Method Time Signature BUN (Blood Urea 8 6 - 20 POWERCHART Nitrogen), S MGDL Creatinine 0.7 0.7 - 1.2 POWERCHART MGDL Potassium, S 4.2 3.5 - 4.8 POWERCHART MMOLL Sodium, S 144 135 - 145 POWERCHART MMOLL Chloride, S 105 100 - 108 POWERCHART MMOLL CO2 Total 28 22 - 29 POWERCHART MMOLL Calcium, Total, S 9.5 8.5 - POWERCHART 10.5 MGDL Albumin, S 3.5 3.5 - 5.0 POWERCHART GMDL Alkaline 97 50 - 130 POWERCHART Phosphatase, S UNITL Aspartate 19 8 - 43 POWERCHART Aminotransferase UNITL (AST), S Alanine 28 9 - 52 POWERCHART Amniotransferase, LD UNITL Bilirubin, Total, S 0.6 0.1 - 1.0 POWERCHART MGDL Total Protein, S 6.6 6.3 - 8.2 POWERCHART MGDL Glucose, Fasting, S 98 70 - 99 POWERCHART MGDL HXeGFR (MDRD) >60 MLMIN POWERCHART eGFR Black/ >60 MLMIN POWERCHART Gambian Specimen (Source) Anatomical Collection Method Collection Time Re ceived Time Location / / Volume Laterality Blood 06/25/2012 2:36 PM CDT Fausto Good P.A.-C. LAB BLOOD ADD-ON Performing Organization Address City/State/ZIP Code Phon e Number POWERCHART documented in this encounter Visit Diagnoses Not on filedocumented in this encounter Additional Health Concerns Assessment Noted Time PHQ-9 Depression Total Score: 10 06/03/2012 4:52 PM CD T documented as of this encounter
--- OUTSIDE RECORDS SUMMARY | 2022-01-23 07:22 | XMS_ITS | Encounter Summary ---
:1965 Author Organization [facility] Address [address] [place] [address] Care Team Providers Name Role Phone Unavailable Primary Care Provider Unavailable Encounter Details Date Type Department Care Team Description 04/06/2008 Hospital Encounter [facility]X [facility] Neris Belcher M.D. [address] [place] [address] (Wo rk) Social History Tobacco [...] many times do you More than three bule es a week 02/16/2021 talk on the phone with family, friends, or neighbors? How often do you get together with friends Never 02/16/2021 or relatives? How often do you attend yarsanism or Never 2021 scientologist services? Do you [...]
--- OUTSIDE RECORDS SUMMARY | 2022-01-23 07:22 | XMS_ITS | Encounter Summary ---
:1965 Author Organization [facility] Address [address] [place] [id number] Care Team Providers Name Role Phone Unavailable Primary Care Provider Unavailable Encounter Details Date Type Department Care Team Description 02/09/2009 Hospital Encounter HX [facility] Aida Castillo M.D. Social History Tobacco Use Types Packs/Day [...] do you attend gnosticist or Never 2021 jain services? Do you [...] or slept in a usp (including now)? Sex Assigned at Date Recorded Female 10/01/2017 7:47 AM CDT documented as of this encounter Plan of Treatment Not on filedocumented as of this encounter Visit Diagnoses Not on filedocumented in this encounter
--- OUTSIDE RECORDS SUMMARY | 2022-01-23 07:22 | XMS_ITS | Encounter Summary ---
:1965 Author Organization [facility] Address [address] [place] [address] Care Team Providers Name Role Phone Unavailable Primary Care Provider Unavailable Encounter Details Date Type Department Care Team Description 04/18/2008 Hospital Encounter HX [facility] Neris Belcher M.D. [address] [place] [address] (Wo rk) Social History Tobacco [...] or relatives? How often do you attend judaism or Never 2021 judaism services? Do you belong to any clubs or No 02/16/2021 organizations such as judaism groups, unions, fraternal or athletic groups, or [...]
--- OUTSIDE RECORDS SUMMARY | 2022-01-23 07:22 | XMS_ITS | Encounter Summary ---
:1965 Author Organization [facility] Address [address] [place] [address] Care Team Providers Name Role Phone Unavailable Primary Care Provider Unavailable Encounter Details Date Type Department Care Team Description 04/27/2010 Hospital Encounter HX [facility] Jj Woodward M.D. [address] [place], [place] [address] (Wo rk) Social History [...] do you attend caodaism or Never 2021 baptism services? Do you [...] Associated Comments Diagnosis BI BREAST DIAGNOSTIC Routine 04/27/2010 10:10 AM Results for this LEFT CDT procedure are i n the results section. documented in this encounter Results BI Breast Diagnostic Left (04/27/2010 10:10 AM CDT) Anatomical Region Laterality Modality Breast Left Mammography Specimen (Source) Anatomical Collection Method Collection Time Re ceived Time Location / / Volume Laterality 04/27/2010 10:10 AM CDT Narrative 04/27/2010 6:32 PM CDT INDICATION Abnormal screening breast. ?? Focal asym metric density on screening. DISCUSSION Left breast diagnostic mammogram. ??With spot compression, the previously mentioned focal asymmetric density likel y resolved. ??However there is heterogeneously dense breast tissue that can obscure small masses. ??Recommend completing the workup with ultrasound. CODE: 0-INCOMPLETE - NEEDS ADDITIONAL IM AGING EVALUATION Please see ultrasound report. Appropriate letter sent. Full field digital mammography is used a nd Computer Aided Detection is performed on the digital mammogram image s. FOR RADIOLOGY USE ONLY: ??___Results int o computer ??___Letter written and sent ___2 copies of report made ??___Form to spares scheduler ??___Patient called ___Written in incomplete book ??___Preli minary report to doctor Latrice Anderson ?D: Procedure Note Reymundo Mustafa M.D. / ProviderCarlton M.D. - 07/03/2016 INDICATION Abnormal screening breast. Focal asymmet cherelle density on screening. DISCUSSION Left breast diagnostic mammogram. With s pot compression, the previously mentioned focal asymmetric density likel y resolved. However there is heterogeneously dense breast tissue that can obscure small masses. Recommend completing the workup with ultrasound. CODE: 0-INCOMPLETE - NEEDS ADDITIONAL IM AGING EVALUATION Please see ultrasound report. Appropriate letter sent. Full field digital mammography is used a nd Computer Aided Detection is performed on the digital mammogram image s. FOR RADIOLOGY USE ONLY: ___Results into computer ___Letter written and sent ___2 copies of report made ___Form to jaquan berrios ___Patient called ___Written in incomplete book ___Prelimi hawky report to doctor Latrice Anderson T: 04/27/2010 10:59 am Eleonora Turcios(R), R.TFarzana(R)(M) IMG BI PROCEDUR ES documented in this encounter Visit Diagnoses Not on filedocumented in this encounter Additional Health Concerns Assessment Noted Time PHQ-9 Depression Total Score: 17 04/16/2010 10:[address] documented as of this encounter
--- OUTSIDE RECORDS SUMMARY | 2022-01-23 07:22 | XMS_ITS | Encounter Summary ---
:1965 Author Organization [facility] Address [address] [place] [address] Care Team Providers Name Role Phone Unavailable Primary Care Provider Unavailable Encounter Details Date Type Department Care Team Description 04/26/2008 Hospital Encounter HX [facility] Neris Belcher M.D. [address] [place] [address] (Wo rk) Social History Tobacco [...] do you attend adventism or Never 2021 church services? Do you [...]
--- OUTSIDE RECORDS SUMMARY | 2022-01-23 07:22 | XMS_ITS | Encounter Summary ---
:1965 Author Organization [facility] Address [address] [place] [address] Care Team Providers Name Role Phone Unavailable Primary Care Provider Unavailable Encounter Details Date Type Department Care Team Description 01/28/2012 Hospital Encounter [facility] Sarita Knight, P.A. [address] [place] [address] [place] [address] (Wo rk) Social History Tobacco Use Types [...] do you attend restorationism or Never 2021 roman catholic services? Do [...] Sign Reading Time Taken Comments Blood Pressure 144/80 01/28/2012 3:11 PM AUTOMOBILE CONTRACT CLERK Pulse 80 01/28/2012 3:11 PM AUTOMOBILE CONTRACT CLERK Temperature - - Respiratory Rate 16 01/28/2012 3:11 PM AUTOMOBILE CONTRACT CLERK Oxygen Saturation - - Inhaled Oxygen Concentration - - Weight 84.8 kg (186 lb 15.2 oz) 01/28/2012 3:11 PM AUTOMOBILE CONTRACT CLERK Height - - Body Mass Index 32.71 08/05/2011 2:21 PM CDT documented in this encounter Progress Notes Edwin George - 01/28/2012 2:57 PM CST [id number] CHIEF COMPLAINT/REASON FOR VISIT Vomiting, diarrhea. HISTORY OF PRESENT ILLNESS The patient states that she has been sick for the past week. She has had some vomiting and diarrhea.She did notice some mucus in her stool the past couple of days. She denies any recent antibiotics. She states that she would have 4 or 5 vomiting bouts per day, she states with every food ingestion. She also states that she does have watery diarrhea, she described, multiple times a day. She states that one day it is better when the other day it is worse. She states on average, she would have 5 or 6 bowel movements. She denies any history of any irritable bowel or celiac sprue. She denied any recurrence of this condition. 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 She denies any blood in the stool. She denies any rash around the rectum. She denies any abdominal pain. Denies any frequency, urgency. Denies any back pain. Denies any flank pain. Denies any other specific concerns or problems. Please refer to EMR for vitals, medications, and allergies. PHYSICAL EXAM GENERAL: This pleasant 46-year-old female in no appreciable distress, alert and awake and responds appropriately to auditory and visual stimuli. LUNGS: Clear to auscultation. No wheezes, rales, or rhonchi. HEENT: Unremarkable. ABDOMEN: Soft. There is some mild diffuse epigastric type tenderness. No appreciable guarding or rebound. No CVA tenderness. IMPRESSION/REPORT/PLAN Unspecified gastroenteritis with some mild vomiting. PLAN: We did send the patient home today with some Zofran 4 mg ODT on an as- needed basis for up to 3days. We are going to check her stool cultures, Giardia, C. diff, and parasites. I did recommend good hydration, avoiding any dairy products or sugary products. I did recommend talking to her PCP if there is no improvement by the end of the week. We did answer all of her questions. Edwin George P.A.-C/krishna Electronically Signed By: EDWIN GEORGE On: 01/31/2012 08:13 AM Source: [facility] MHSDOLBEYNONRADSYS Document Id: [id number] MOBILE CONTRACT CLERK documented in this encounter Miscellaneous Notes Telephone Encounter - Conversion, Historical Provider Ser - 08/15/2014 1:43 PM CDT *Phone Message- Dr. Rocío Rust Document Contains Addenda Addendum by ISRRAEL ROWELL RN on 15 August 2014 14:24:50 CDT S. pt contacted, is wanting a refill of Tramadol for back pain B.. A. has been seen in [facility], Leatha declined to refill due to length of time since last apptFarzana Rust in t is out this week. Pt has not seen another provider in [facility]. R. advised to talk w/ Triage Nurse or to be seen. From: MARIE CHA (CRYSTAL machine repair person [facility]) To: CRYSTAL MARTINmachine repair person Med Located Within [facility]; Sent: 08/15/2014 13:43:24 CDT Subject: *Phone Message- Dr. Rocío Rust Caller is: ( x ) Patient ( ) Mother ( ) Father ( ) Spouse ( ) Daughter ( ) Son ( ) Pharmacy ( ) Other: Physician: Dr. Rocío Rust Patient MRN #: Reason for Call: Message: S: Pt called clinic to talk to nurse B: regarding refill- pharmacy would not fax A: nurse to call back R: Please call pt at [phone] Advice/Action: Source used: ( ) Verbalizes understanding [...] back cell phone number ( ) Source: [facility] [employer] Document Id: [id number] Miscellaneous - Edwin George - 01/28/2012 10:07 PM CST Ambulatory Depart Summary [address] [address] Visit Information Name: HANNAH COONEY [facility] Number: [id number] Visit Date: 01/28/2012 22:07:39 Attending Provider: SARITA MARRERO PA-C Primary Care Provider: NOMI RUST MD HANNAH COONEY has been given the following list of medications: Your Medications It is important to take your medications as directed. Use a pill box or chart to help remind you to take your medications. Please let your doctor or nurse know if you have problems taking your medications. Medication/Strength Dose Route Frequency Indications/Special Instructions/Comments ondansetron (Zofran ODT 4 mg oral tablet, disintegrating) 4 mg Oral every 8 hours hydrochlorothiazide (hydrochlorothiazide 12.5 mg oral tablet) 12.5 mg Oral once a day Please call the clinic to schedule an appointment. buPROPion (Wellbutrin XL 300 mg/24 hours oral tablet, extended release) 300 mg Oral once a day sumatriptan (Imitrex 25 mg oral tablet) 25 mg Oral once as needed for Migraine headache repeat afterone hour if needed trazodone (trazodone 50 mg oral tablet) 50 mg Oral once a day (at bedtime) cyclobenzaprine (Flexeril 10 mg oral tablet) 10 mg Oral once a day Attention: If you have any medications at home that are not on this list, DO NOT take them until youcontact your provider for clarification. Additional Information: Source: [facility] POWERCHART Document Id: [id number] MOBILE CONTRACT CLERK Miscellaneous - Edwin George - 01/28/2012 10:07 PM CST Ambulatory Patient Summary [facility] [address] [place] [address] Visit Information Name: HANNAH COONEY [facility] Number: [id number] Current Date: 01/28/2012 22:07:39 Physicians Attending Provider: SARITA MARRERO PA-C Primary Care Provider: NOMI RUST MD Your Medications Here is a list of your medications. It is important to take your medications as directed. Use a pillbox or chart to help remind you to take your medications. Please let your doctor or nurse know if you have problems taking your medications. Medication/Strength Dose Route Frequency Indications/Special Instructions/Comments ondansetron (Zofran ODT 4 mg oral tablet, disintegrating) 4 mg Oral every 8 hours hydrochlorothiazide (hydrochlorothiazide 12.5 mg oral tablet) 12.5 mg Oral once a day Please call the clinic to schedule an appointment. buPROPion (Wellbutrin XL 300 mg/24 hours oral tablet, extended release) 300 mg Oral once a day sumatriptan (Imitrex 25 mg oral tablet) 25 mg Oral once as needed for Migraine headache repeat afterone hour if needed trazodone (trazodone 50 mg oral tablet) 50 mg Oral once a day (at bedtime) cyclobenzaprine (Flexeril 10 mg oral tablet) 10 mg Oral once a day Attention: If [...] No Appointments found Your Goals/Additional instructions: Source: [employer] Document Id: [id number] MOBILE CONTRACT CLERK Tony - Edwin George - 01/28/2012 4:50 PM CST School or Work Excuse School or Work Excuse Entered On: 01/28/2012 16:51 AUTOMOBILE CONTRACT CLERK Performed On: 01/28/2012 16:50 AUTOMOBILE CONTRACT CLERK by EDWIN GEORGE School or Work Excuse Date Patient Seen : 01/28/2012 AUTOMOBILE CONTRACT CLERK School or Work Restrictions : No Restrictions School Med Procedure Form Completed : N/A Date of Return to School/Work Without Restrictions : 01/30/2012 AUTOMOBILE CONTRACT CLERK Comment : pt may return to work per improvement, please call with questions EDWIN GEORGE - 01/28/2012 16:50 AUTOMOBILE CONTRACT CLERK Source: [employer] Document Id: [id number] MOBILE CONTRACT CLERK Miscellaneous - Issac Ellsworth, R.N. - 01/28/2012 3:11 PM CST Adult Property And Equipment Clerk Intake/History Adult Property And Equipment Clerk Intake/History Entered On: 01/28/2012 15:13 AUTOMOBILE CONTRACT CLERK Performed On: 01/28/2012 15:11 AUTOMOBILE CONTRACT CLERK by ISSAC ELLSWORTH Intake Chief Complaint : vomiting, nausea, body aches, headache and cough Onset of Symptoms : 1 week Temperature Oral : 36.8C(Converted to: 98.2DegF) Peripheral Pulse Rate : 80/min Respiratory Rate : 16/min Systolic Blood Pressure : 144mmHg (HI) Diastolic Blood Pressure : 80mmHg NIBP Mean : 101mmHg BP Location : Right upper extremity Blood Pressure Cuff Size : Regular Actual Weight : 84.8kg(Converted to: 186lb 15oz) Weight Source : Standing scale Dosing Weight Clinic : 84.80kg ISSAC ELLSWORTH - 01/28/2012 15:11 AUTOMOBILE CONTRACT CLERK Subjective Pain Symptoms : No ISSAC ELLSWORTH 01/28/2012 15:11 AUTOMOBILE CONTRACT CLERK Dependent Habits Tobacco Use/Currently Using : Yes Exposure to Tobacco Smoke : Patient smokes Smoking Status : Current every day smoker ISSAC ELLSWORTH 01/28/2012 15:11 AUTOMOBILE CONTRACT CLERK Tobacco Use Grid Type : Cigarettes Cigarette Use Packs/Day : 1.0 ISSAC ELLSWORTH 01/28/2012 15:11 AUTOMOBILE CONTRACT CLERK Allergy Allergies (Active) amoxicillin Estimated Onset Date: Unspecified ; Created By: CHIP GUERRA LPN; Reaction Status: Active ; Category: Drug ; Substance: amoxicillin ; Type: Allergy ; Updated By: CHIP GUERRA LPN; Reviewed Date: 01/28/2012 15:09 AUTOMOBILE CONTRACT CLERK Ceclor Estimated Onset Date: Unspecified ; Created By: CHIP GUERRA LPN; Reaction Status: Active ; Category: Drug ; Substance: Ceclor ; Type: Allergy ; Updated By: CHIP GUERRA LPN; Reviewed Date: 01/28/2012 15:09 AUTOMOBILE CONTRACT CLERK cephalosporins Estimated Onset Date: Unspecified ; Created By: CHIP GUERRA LPN; Reaction Status: Active ; Category: Drug ; Substance: cephalosporins ; Type: Allergy ; Updated By: CHIP GUERRA LPN; Reviewed Date: 01/28/2012 15:09 AUTOMOBILE CONTRACT CLERK iodine Estimated Onset Date: Unspecified ; Created By: CHIP GUERRA LPN; Reaction Status: Active ; Category: Drug ; Substance: iodine ; Type: Allergy ; Updated By: CHIP GUERRA LPN; Reviewed Date: 01/28/2012 15:09 AUTOMOBILE CONTRACT CLERK penicillins Estimated Onset Date: Unspecified ; Created By: CHIP GUERRA LPN; Reaction Status: Active ; Category: Drug ; Substance: penicillins ; Type: Allergy ; Updated By: CHIP GUERRA LPN; Reviewed Date: 01/28/2012 15:09 AUTOMOBILE CONTRACT CLERK Source: [facility] POWERCHART Document Id: [id number] MOBILE CONTRACT CLERK documented in this encounter Plan of Treatment Not on filedocumented as of this encounter Visit Diagnoses Not on filedocumented in this encounter Additional Health Concerns Assessment Noted Time PHQ-9 Depression Total Score: 18 07/10/2011 4:54 PM CD T documented as of this encounter
--- OUTSIDE RECORDS SUMMARY | 2022-01-23 07:22 | XMS_ITS | Encounter Summary ---
:1965 Author Organization [facility] Address [address] [place] [address] Care Team Providers Name Role Phone Unavailable Primary Care Provider Unavailable Encounter Details Date Type Department Care Team Description 10/12/2010 Hospital Encounter [facility]X [facility] Mart Khan D.O. [address] [place] [address] (Wo rk) Social History Tobacco Use Types [...] do you attend hindu or Never 2021 church services? Do you [...] documented as of this encounter Progress Notes Mart Khan D.O. - 10/12/2010 12:00 AM CDT [id number] CHIEF COMPLAINT / REASON FOR VISIT Chest congestion, cough, fever. HISTORY OF PRESENT ILLNESS This is a 45-year-old female that presents to [facility] for evaluation of above symptoms which have been present for approximately 10 days. The symptoms began more with maxillary sinus congestion and then have worsened to the point where they settled into the chest with chest congestion and cough productive of yellowish phlegm. SYSTEMS REVIEW She developed a temperature to 102.9, plugging of the ears with no temperature, chills, nausea, vomiting or diarrhea. ALLERGIES Amoxicillin. Cephalosporins. Iodine. CURRENT MEDICATIONS Aleve 220 mg every 6 hours as needed. Citalopram 20 mg one and one-half tablets daily. Hydrochlorothiazide 12.5 mg daily. Trazodone 50 mg daily. PAST MEDICAL / SURGICAL HISTORY 1) Carpal tunnel syndrome. 2) Depression. 3) GERD. 4) Hypertension. 5) Patient reports that she gets bronchitis approximately twice a year, last treated in June 2010. SOCIAL HISTORY The patient smokes 1 pack per day. VITAL SIGNS TEMP: 37.1 degreesC PULSE: 88 RESP RATE: 20 BLOOD PRESSURE: 118/78 PHYSICAL EXAM GENERAL: Examination reveals a mesomorphic 45-year-old female with an occasional congested cough. ENT: EACs patent. Tympanic membranes bulging with dull cone of light. Nose septum midline with clear rhinorrhea. Oropharynx has mild erythema secondary to smoking. Neck symmetrical, supple with tender submandibular adenopathy. HEART: Regular rate and rhythm. LUNGS: Bilaterally clear to auscultation without rale, rhonchi or wheeze. IMPRESSION / REPORT / PLAN 1) Upper respiratory tract infection. 2) Tobacco dependence. PLAN: Zithromax Z-EPHRAIM with proper dosing reviewed. Robitussin AC 240 mL, 2 teaspoons every 4 hours as needed for cough. The patient expresses some concerns regarding a developing resistance to the antibiotics and we discussed her best preventive measure with regards to recurrent infections is to follow Dr. Nomi Rust' previous recommendations for smoking cessation. Mart Khan D.O. cla Electronically Signed By: MART KHAN DO On: 11/16/2010 09:26 AM Source: [facility] MHSDOLBEYNONRADSYS Document Id: [id number] documented in this encounter Miscellaneous Notes Miscellaneous - Padmini Herrera R.N. - 01/28/2012 3:40 PM CST HCTZ Document Contains Addenda Addendum by NOMI RUST MD on 29 January 2012 19:31:33 PRESSURE STEAMER TENDER From: NOMI RUST MD To: SHILOH ANDINO; Sent: 01/29/2012 19:31:33 PRESSURE STEAMER TENDER Subject: RE: HCTZ done Addendum by NOMI RUST MD on 29 January 2012 19:31:21 PRESSURE STEAMER TENDER Submitted: Order Order: hydrochlorothiazide (hydrochlorothiazide 12.5 mg oral tablet) 1 tab(s) PO Daily Please call the clinic to schedule an appointment. Qty: 90 tab(s) Duration: 90 day(s) Refills: 3 Substitutions Allowed Route To Pharmacy - [id number] Signed by NOMI RUST MD 01/29/2012 19:31:15 Addendum by SHILOH ANDINO on 29 January 2012 07:57:27 PRESSURE STEAMER TENDER From: SHILOH ANDINO To: NOMI RUST MD; Sent: 01/29/2012 07:57:27 PRESSURE STEAMER TENDER Subject: FW: HCTZ From: PADMINI HERRERA To: SHILOH ANDINO; Sent: 01/28/2012 15:40:57 PRESSURE STEAMER TENDER Subject: HCTZ Submitted: Order Order: hydrochlorothiazide (hydrochlorothiazide 12.5 mg oral tablet) 1 tab(s) PO Daily Please call the clinic to schedule an appointment. Qty: 30 tab(s) Refills: 0 Substitutions Allowed Route To Pharmacy - [id number] Signed by PADMINI HERRERA Caller is: ( ) Patient ( ) Mother ( ) Father ( ) Spouse ( ) Daughter ( ) Son ( Olga/Mariela ) Pharmacy ( ) Other: Physician: rosanne Rust Patient MRN #: Reason for Call: Message: Medication on the inactive list....last visit 04/16/10 and no potassium in last 15 months...Last refill 04/01/10...Orders in CPOE for appointment. Advice/Action: Source used: ( ) Verbalizes understanding [...] back cell phone number ( ) Source: [facility] POWERCHART Document Id: [id number] Electronically signed by Aaron [facility] [employer] [id number] at 07/14/2016 3:04 PM CDT Miscellaneous - Maggie Smith, R.N. - 10/12/2010 4:48 PM CDT Adult Inseminator Intake/History Adult Inseminator Intake/History Entered On: 10/12/2010 16:50 CDT Performed On: 10/12/2010 16:48 CDT by MAGGIE SMITH Intake Chief Complaint: chest congestion, coughing, fever up to 102.9, achey, sinus pressure and drainage x10 days Temperature Oral: 37.1C(Converted to: 98.8DegF) Peripheral Pulse Rate: 88/min Respiratory Rate: 20/min Systolic Blood Pressure: 118mmHg Diastolic Blood Pressure: 78mmHg NIBP Mean: 91mmHg BP Location: Right upper extremity Actual Weight: 83.500kg(Converted to: 184lb 1oz) Dosing Weight Clinic: 83.50kg GABRIELA SMITHONI Sharma 10/12/2010 16:48 CDT General Info Information Given By: Patient Preferred Communication Mode: Verbal Languages: Divehi GABRIELA SMITHONI Sharma 10/12/2010 16:48 CDT Subjective Pain Symptoms: Yes GABRIELA SMITHONI Sharma 10/12/2010 16:48 CDT Pain Pain Assessment Grid Pain 1 Location: Lower back (Comment: rates pain 08/19 [TARIK MAGGIE Sharma 10/12/2010 16:48 CDT] ) MAGGIE SMITH Edith 10/12/2010 16:48 CDT Dependent Habits Tobacco Use/Currently Using: Yes Tobacco Use/Advised to Quit: Yes Exposure to Tobacco Smoke: Patient smokes TARIKMAGGIE 10/12/2010 16:48 CDT Tobacco Use Grid Type: Cigarettes Cigarette Use Packs/Day: 1.0 TARIK MAGGIE Sharma 10/12/2010 16:48 CDT Allergy Allergies (Active) amoxicillin Estimated Onset Date: Unspecified ; Created By: CHIP GUERRA LPN; Reaction Status: Active ; Category: Drug ; Substance: amoxicillin ; Type: Allergy ; Updated By: CHIP GUERRA LPN; Reviewed Date: 04/16/2010 9:53 PRESSURE STEAMER TENDER Ceclor Estimated Onset Date: Unspecified ; Created By: CHIP GUERRA LPN; Reaction Status: Active ; Category: Drug ; Substance: Ceclor ; Type: Allergy ; Updated By: CHIP GUERRA LPN; Reviewed Date: 04/16/2010 9:53 PRESSURE STEAMER TENDER cephalosporins Estimated Onset Date: Unspecified ; Created By: CHIP GUERRA LPN; Reaction Status: Active ; Category: Drug ; Substance: cephalosporins ; Type: Allergy ; Updated By: CHIP GUERRA LPN; Reviewed Date: 04/16/2010 9:53 PRESSURE STEAMER TENDER iodine Estimated Onset Date: Unspecified ; Created By: CHIP GUERRA LPN; Reaction Status: Active ; Category: Drug ; Substance: iodine ; Type: Allergy ; Updated By: CHIP GUERRA LPN; Reviewed Date: 04/16/2010 9:53 PRESSURE STEAMER TENDER penicillins Estimated Onset Date: Unspecified ; Created By: CHIP GUERRA LPN; Reaction Status: Active ; Category: Drug ; Substance: penicillins ; Type: Allergy ; Updated By: CHIP GUERRA LPN; Reviewed Date: 04/16/2010 9:52 PRESSURE STEAMER TENDER Source: [facility] [employer] Document Id: [id number] documented in this encounter Plan of Treatment Not on filedocumented as of this encounter Visit Diagnoses Not on filedocumented in this encounter Additional Health Concerns Assessment Noted Time PHQ-9 Depression Total Score: 17 04/16/2010 10:[address] documented as of this encounter
--- OUTSIDE RECORDS SUMMARY | 2022-01-23 07:22 | XMS_ITS | Encounter Summary ---
:1965 Author Organization [facility] Address [address] [place] [address] Care Team Providers Name Role Phone Unavailable Primary Care Provider Unavailable Encounter Details Date Type Department Care Team Description 04/27/[address] [facility] Neris Grubbs M.D. [address] [place] [address] (Wo rk) Social History Tobacco [...] or relatives? How often do you attend muslim or Never 2021 moravian services? Do you belong to any clubs or No 02/16/2021 organizations such as muslim groups, unions, fraternal or athletic groups, or [...] Associated Comments Diagnosis BI ULTRASOUND BREAST Routine 04/27/2010 10:03 AM Results for this FOCUSED LEFT CDT procedure are i n the results section. documented in this encounter Results BI Ultrasound Breast Focused Left (04/27/2010 10:03 AM CDT) Anatomical Region Laterality Modality Breast Left Ultrasound Specimen (Source) Anatomical Collection Method Collection Time Re ceived Time Location / / Volume Laterality 04/27/2010 10:03 AM CDT Narrative 04/27/2010 6:15 PM CDT INDICATION Abnormality on screening. DISCUSSION Left breast ultrasound. ??Comparison wit h mammograms from today and screening mammogram 04/16/2010. ??There are multip le benign-appearing septated cysts throughout the left breast. ??At 1 o'kenny ck and 4 cm from the nipple, there is a cluster of cysts each measuring 2 mm. ??At 1 o'clock and 6 cm from the nipple there is a cluster of cysts with largest 6 mm. ??At 2 o'clock and 5 cm from the nipple there is a cluster of cy sts with largest 4 mm. ??These correspond to the density seen on screen ing mammogram. ??Nothing suspicious. No solid suspicious masses. ??Recommend resuming yearly screening mammography in 1 year from now assuming physical exa m remains normal. ??I discussed results with the patient. CODE: 2-BENIGN Appropriate letter sent. Full field digital mammography is used a nd Computer Aided Detection is performed on the digital mammogram image s. FOR RADIOLOGY USE ONLY: ??___Results int o computer ??___Letter written and sent ___2 copies of report made ??___Form to space scheduler ??___Patient called ___Written in incomplete book ??___Preli minary report to doctor Latrice Anderson ?D: ? THIS IS AN ELEC TRONICALLY VERIFIED REPORT 04/27/2010 6:15 PM: ??Reymundo Mustafa M.D. Procedure Note Reymundo Mustafa M.D. / ProviderCarlton M.D. - 07/03/2016 INDICATION Abnormality on screening. DISCUSSION Left breast ultrasound. Comparison with mammograms from today and screening mammogram 04/16/2010. There are multiple benign-appearing septated cysts throughout the left breast. At 1 o'clock and 4 cm from the nipple, there is a cluster of cysts each measuring 2 mm. At 1 o'clock and 6 cm from the nipple there is a cluster of cysts with largest 6 mm. At 2 o'clock and 5 cm from the nipple there is a cluster of cy sts with largest 4 mm. These correspond to the density seen on screen ing mammogram. Nothing suspicious. No solid suspicious masses. Recommend re suming yearly screening mammography in 1 year from now assuming physical exa m remains normal. I discussed results with the patient. CODE: 2-BENIGN Appropriate letter sent. Full field digital mammography is used a nd Computer Aided Detection is performed on the digital mammogram image s. FOR RADIOLOGY USE ONLY: ___Results into computer ___Letter written and sent ___2 copies of report made ___Form to jaquan berrios ___Patient called ___Written in incomplete book ___Prelimi nary report to doctor Reymundo Mustafa M.D. daa T: 04/27/2010 11:03 am THIS IS AN ELECTRONICALLY VERIFIED REPORT 04/27/2010 6:15 PM: Reymundo Mustafa M.D. Historical Provider IMG BI PROCEDURES documented in this encounter Visit Diagnoses Not on filedocumented in this encounter Additional Health Concerns Assessment Noted Time PHQ-9 Depression Total Score: 17 04/16/2010 10:[address] documented as of this encounter
--- OUTSIDE RECORDS SUMMARY | 2022-01-23 07:22 | XMS_ITS | Encounter Summary ---
:1965 Author Organization [facility] Address [address] [place] [address] Care Team Providers Name Role Phone Unavailable Primary Care Provider Unavailable Encounter Details Date Type Department Care Team Description 06/03/2012 Hospital Encounter HX [facility] Mohan Good P.A.-C. [address] [place] [address] (Wo rk) Social History Tobacco [...] do you attend mandaen or Never 2021 yazidi services? Do you [...] Sign Reading Time Taken Comments Blood Pressure 134/88 06/03/2012 3:57 PM CDT Pulse 88 06/03/2012 3:57 PM CDT Temperature - - Respiratory Rate 14 06/03/2012 3:57 PM CDT Oxygen Saturation - - Inhaled Oxygen Concentration - - Weight 84 kg (185 lb 3 oz) 06/03/2012 3:57 PM CDT Height 160 cm (5' 2.99) 06/03/2012 3:57 PM CDT Body Mass Index 32.81 06/03/2012 3:57 PM CDT documented in this encounter Progress Notes Ynes Good P.A.-C. - 06/03/2012 3:23 PM CDT [id number] CHIEF COMPLAINT/REASON FOR VISIT Cough x 3 weeks. HISTORY OF PRESENT ILLNESS Kaitlin is a pleasant 46-year-old female who has had a cough for the last three weeks that has been bothering her. I have seen her in the past for problems with depression and her depression has been fairly well-controlled on the Wellbutrin although she still as problems with sleeping. She also has a history of hypertension that has not been very well controlled. She has been off hydrochlorothiazide now for a few months. VITAL SIGNS Noted in the electronic medical record. PHYSICAL EXAM GENERAL: She appears in no acute distress. Her oxygen saturation was 98%. ENT: TMs nonerythematous. Throat no erythema. NECK: No lymphadenopathy. No thyroid masses. HEART: Regular rate and rhythm, no murmurs. LUNGS: Clear to auscultation. IMPRESSION/REPORT/PLAN 1. Cough. Likely this is an infectious cause. I encouraged her to quit smoking. Since her symptoms have been present for three weeks I will treat her for an atypical bacteria with Zithromax, take a Z-Terell as directed. If her symptoms worsen or do not improve she will let us know. 2. Hypertension. Her blood pressure is elevated at 134/88 today. I rechecked it and got it actually higher at 146/90. I talked about restarting her hydrochlorothiazide but she said it often made her urinate quite frequently and she felt thirsty all the time. I am going to start her instead on lisinopril 10 mg a day to take one tablet once daily. I will have her come in to get blood pressure checks weekly over the next month and I will see her back for a physical in a month. If there are questions orproblems in the meantime let us know. 3. Depression. She will continue on her Wellbutrin for now and I will see her back in a month to discuss this further. Her PHQ-9 score was done today but it was 10, which is not yet in the optimal range. 4. Health maintenance. She will come back for a physical exam. We will do some screening lab work atthat time. She is also due for mammogram which we will set up as well. If there are any questions orproblems in the meantime she will let us know, otherwise I will see her back in a month for a recheck. Ynes Good PA-C/crys Electronically Signed By: YNES GOOD PA-C On: 06/04/2012 05:21 PM Source: [facility] MHSDOLBEYNONRADSYS Document Id: [id number] documented in this encounter Miscellaneous Notes Miscellaneous - Jana Talamantes, L.P.N. - 06/03/2012 4:52 PM CDT PHQ-9 PHQ-9 Entered On: 06/03/2012 16:52 CDT Performed On: 06/03/2012 16:52 CDT by JANA TALAMANTES PHQ-9 Little interest or pleasure in doing things : More than half the days Feeling down, depressed, or hopeless : [...] Not at all PHQ-9 Calculated Score : 10 JANA TALAMANTES - 06/03/2012 16:52 CDT Source: [facility] Document Id: [id number] CDT!12 Tony - Ynes Good P.A.-C. - 06/03/2012 4:36 PM CDT School or Work Excuse School or Work Excuse Entered On: 06/03/2012 16:36 CDT Performed On: 06/03/2012 16:36 CDT by YNES GOOD PA-C School or Work Excuse Date Patient Seen : 06/03/2012 CDT Date of Return to School/Work Without Restrictions : 06/04/2012 CDT Comment : Kaitlin was seen in the clinic today YNES GOOD PA-C - 06/03/2012 16:36 CDT Source: [facility] Document Id: [id number] CDT!5 Tony - Ynes Good P.A.-C. - 06/03/2012 4:34 PM CDT Ambulatory Patient Summary [address] [address] Visit Information Name: KAITLIN COONEY LUPE [facility] Number: [id number] Current Date: 06/03/2012 16:34:56 Physicians Attending Provider: YNES GOOD PA-C Primary Care Provider: NOMI RUST MD Your Medications Here is a list of your medications. It is important to take your medications as directed. Use a pillbox or chart to help remind you to take your medications. Please let your doctor or nurse know if you have problems taking your medications. Medication/Strength Dose Route Frequency Indications/Special Instructions/Comments lisinopril (lisinopril 10 mg oral tablet) 10 mg Oral once a day azithromycin (Zithromax Z-Terell 250 mg oral tablet) 2 tablets on day 1, then 1 tablet on days 2-5 Oralas directed for 5 Days buPROPion (Wellbutrin XL 300 mg/24 hours oral [...] No Appointments found Your Goals/Additional instructions: Source: [facility] POWERCHART Document Id: [id number] Miscellaneous - Ynes Good P.A.-C. - 06/03/2012 4:34 PM CDT Ambulatory Depart Summary [address] [address] Visit Information Name: KAITLIN COONEY [facility] Number: [id number] Visit Date: 06/03/2012 16:34:56 Attending Provider: YNES GOOD PA-C Primary Care [...] medications. Medication/Strength Dose Route Frequency Indications/Special Instructions/Comments lisinopril (lisinopril 10 mg oral tablet) 10 mg Oral once a day azithromycin (Zithromax Z-Terell 250 mg oral tablet) 2 tablets on day 1, then 1 tablet on days 2-5 Oralas directed for 5 Days buPROPion (Wellbutrin XL 300 mg/24 hours oral [...] your provider for clarification. Additional Information: Source: [facility] POWERCHART Document Id: [id number] Miscellaneous - Jana Talamantes, L.P.N. 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 Day Trader Intake/History Entered On: 06/03/2012 16:02 CDT Performed On: 06/03/2012 15:57 CDT by JANA TALAMANTES Intake Chief Complaint : cough and cold forever can't breath Temperature Core : 36.7 DegC(Converted to: 98.1 DegF) Peripheral Pulse Rate : 88 /min Respiratory Rate : 14 /min Systolic Blood Pressure : 134 mmHg Diastolic Blood Pressure : 88 mmHg NIBP Mean : 103 mmHg BP Location : Left upper extremity Blood Pressure Cuff Size : Large SpO2 : 98 % Height : 160 cm(Converted to: 5 ft 3 inch(es), 62.99 inch(es)) Actual Weight : 84 kg(Converted to: 185 lb 3 oz) Weight Source : Standing scale Dosing Weight Clinic : 84 kg Clinic BSA : 1.93 Body Mass Index : 32.81 kg/m2 JANA TALAMANTES 06/03/2012 15:57 CDT General Info Information Given By : Patient Languages : Kyrgyz JANA TALAMANTES 06/03/2012 15:57 CDT Subjective Pain Symptoms : Yes JANA TALAMANTES 06/03/2012 15:57 CDT Pain Pain Assessment Grid Pain 1 Location : Chest (Comment: feels tight and head hurts [JANA TALAMANTES 06/03/2012 15:57 CDT] ) JANA TALAMANTES 06/03/2012 15:57 CDT Dependent Habits Tobacco Use/Currently Using : Yes Exposure to Tobacco Smoke : Patient smokes Smoking Status : Current every day smoker JAAN TALAMANTES 06/03/2012 15:57 CDT Tobacco Use Grid Type : Cigarettes Cigarette Use Packs/Day : 1.0 JANA TALAMANTES 06/03/2012 15:57 CDT Source: [place] Document Id: [id number] CDT!35 documented in this encounter Plan of Treatment Not on filedocumented as of this encounter Visit Diagnoses Not on filedocumented in this encounter Additional Health Concerns Assessment Noted Time PHQ-9 Depression Total Score: 10 06/03/2012 4:52 PM CD T documented as of this encounter
--- OUTSIDE RECORDS SUMMARY | 2022-01-23 07:22 | XMS_ITS | Encounter Summary ---
:1965 Author Organization [facility] Address [address] [place] [address] Care Team Providers Name Role Phone Unavailable Primary Care Provider Unavailable Encounter Details Date Type Department Care Team Description 10/01/2012 Hospital Encounter HX [facility] Mohan Lawler P.A.-C. [address] [place] [address] (Wo rk) Social History Tobacco [...] do you attend adventist or Never 2021 yazidism services? Do you [...] Priority Date/Time Associated Diagnosis Comme nts US AORTA Routine 10/01/2012 9:00 AM Results f or this CDT procedure are i n the results section . documented in this encounter Results US Aorta (10/01/2012 9:00 AM CDT) Anatomical Region Laterality Modality Abdomen, Pelvis N/A Ultrasound Specimen (Source) Anatomical Collection Method Collection Time Re ceived Time Location / / Volume Laterality 10/01/2012 9:00 AM CDT Impressions 10/01/2012 10:27 AM CDT Negative abdominal aorta Narrative 10/01/2012 10:27 AM CDT EXAM: US Abdominal Aorta INDICATION: abdominal bruit COMPARISON: None. FINDINGS: No evidence for aortic aneurys m. Maximum aortic diameter is 2.3 CM. Both iliac arteries measure approximatel y 1.0 CM. Procedure Note Keegan Spencer D.O. / ProviderThong M.D. - 06/28/2016 EXAM: US Abdominal Aorta INDICATION: abdominal bruit COMPARISON: None. FINDINGS: No evidence for aortic aneurys m. Maximum aortic diameter is 2.3 CM. Both iliac arteries measure approximatel y 1.0 CM. IMPRESSION: Negative abdominal aorta Palomo Haynes Jr., R.D.M.S. IMG US PROCEDURES documented in this encounter Visit Diagnoses Not on filedocumented in this encounter Additional Health Concerns Assessment Noted Time PHQ-9 Depression Total Score: 7 07/01/2012 5:37 PM CDT documented as of this encounter
--- OUTSIDE RECORDS SUMMARY | 2022-01-23 07:22 | XMS_ITS | Encounter Summary ---
:1965 Author Organization [facility] Address [address] [place] [address] Care Team Providers Name Role Phone Unavailable Primary Care Provider Unavailable Encounter Details Date Type Department Care Team Description 10/01/2012 Hospital Encounter HX [facility] Mohan Lawler P.A.-C. [address] [place] [address] (Wo rk) Social History Tobacco [...] or relatives? How often do you attend confucianism or Never 2021 samaritan services? Do you belong to any clubs or No 02/16/2021 organizations such as confucianism groups, unions, fraternal or athletic groups, or [...] Procedure Name Priority Date/Time Associated Comments Diagnosis US PELVIS TRANSVAGINAL Routine 10/01/2012 8:30 AM Results for this AND TRANSABDOMINAL CDT procedure are in the results section. documented in this encounter Results US Pelvis Transvaginal and Transabdominal (10/01/2012 8:30 AM CDT) Anatomical Region Laterality Modality Pelvis N/A Ultrasound Specimen (Source) Anatomical Collection Method Collection Time Re ceived Time Location / / Volume Laterality 10/01/2012 8:30 AM CDT Impressions 10/01/2012 10:31 AM CDT Nonvisualization left ovary. Otherwise negative pelvic ultrasound Narrative 10/01/2012 10:31 AM CDT EXAM: US Pelvic And Endovaginal INDICATION: abdominal pain, thickened ut erus on CT, abd bruit on exam COMPARISON: None. FINDINGS: Uterus measures 9.3 x 5.5 x 7. 1 CM. Endometrial thickness is normal at 3 mm. Right ovary measures 3.0 1.7 x 2.0 CM. T here is normal blood flow. Cyst or dominant follicle measuring 2 CM . There is nonvisualization of the left ov jeremiah. Several small nabothian cysts. Procedure Note Keegan Spencer D.O. / Provider, Thong saucedo M.D. - 06/28/2016 EXAM: US Pelvic And Endovaginal INDICATION: abdominal pain, thickened ut erus on CT, abd bruit on exam COMPARISON: None. FINDINGS: Uterus measures 9.3 x 5.5 x 7. 1 CM. Endometrial thickness is normal at 3 mm. Right ovary measures 3.0 1.7 x 2.0 CM. T here is normal blood flow. Cyst or dominant follicle measuring 2 CM . There is nonvisualization of the left ov jeremiah. Several small nabothian cysts. IMPRESSION: Nonvisualization left ovary. Otherwise negative pelvic ultrasound Palomo Haynes Jr., RKevinMFarzanaS. IMG US PROCEDURES documented in this encounter Visit Diagnoses Not on filedocumented in this encounter Additional Health Concerns Assessment Noted Time PHQ-9 Depression Total Score: 7 07/01/2012 5:37 PM CDT documented as of this encounter
--- OUTSIDE RECORDS SUMMARY | 2022-01-23 07:22 | XMS_ITS | Encounter Summary ---
:1965 Author Organization [facility] Address [address] [place] [address] Care Team Providers Name Role Phone Unavailable Primary Care Provider Unavailable Encounter Details Date Type Department Care Team Description 02/07/2009 Hospital Encounter [facility] Neris Belcher M.D. [address] [place] [address] (Wo rk) Social History Tobacco [...] do you attend episcopal or Never 2021 judaism services? Do you [...]
--- OUTSIDE RECORDS SUMMARY | 2022-01-23 07:22 | XMS_ITS | Encounter Summary ---
:1965 Author Organization [facility] Address [address] [place] [address] Care Team Providers Name Role Phone Unavailable Primary Care Provider Unavailable Encounter Details Date Type Department Care Team Description 04/16/2010 Hospital Encounter [facility] Neris Rust M.D. [address] [place] [address] (Wo rk) Social History Tobacco [...] do you attend episcopalian or Never 2021 adventist services? Do you [...] AM CDT documented as of this encounter H&P Notes Nomi Rust M.D. - 04/16/2010 12:00 AM CST [id number] HISTORY OF PRESENT ILLNESS Hannah is in today for preventive care update. She is doing reasonably well. She does have some depression. She feels like her depression is not very well controlled right now. I did a PHQ-9, and she actually scores 17, which would confirm that. We discussed increasing her dose of her citalopram, and she is willing to do that. She denies any suicidal thought or ideation. Her other big issue is that she is having some chronic problems with her left knee. She has pain as well as a locking feeling. This sounds very suspicious for meniscal tear. She has had no recent injury to the knee. CURRENT MEDICATIONS Citalopram 30 mg daily. Hydrochlorothiazide 12.5 mg daily. ALLERGIES Penicillin. Amoxicillin. Ceclor. SYSTEMS REVIEW HEAD, EYES, ENT: Negative. CARDIAC: Negative. RESPIRATORY: Negative. GI: Negative. : Negative. MUSCULOSKELETAL: Remarkable for left knee pain, as above. PAST MEDICAL / SURGICAL HISTORY 1) Depression. 2) Tonsillectomy and adenoidectomy. 3) Status post PE tubes. 4) Status post tubal ligation. 5) Status post hernia repair. 6) Status post left ankle surgery. 7) Status post cholecystectomy. SOCIAL HISTORY The patient is . She is living alone. 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 HABITS: Smoking: One-half pack per day. Advised to quit. Alcohol: None. Caffeine: Five per day. FAMILY HISTORY Notable for both parents with hypertension. Mother also with depression. VITAL SIGNS Per [facility] EMR. PHYSICAL EXAM EYES: PERRLA. EOMI. ENT: TMs are clear. Throat without erythema or exudate. Neck is supple. No palpable lymphadenopathy. BREASTS: Without palpable masses or tenderness. No axillary adenopathy. HEART: Regular rate and rhythm. No murmurs or gallops noted. LUNGS: Clear. ABDOMEN: Soft and nontender. No guarding, rebound, or masses. PELVIS: Normal female external genitalia, vagina, and cervix. Pap smear is obtained. Uterus, on bimanual exam, is midline and mobile. No adnexal masses. RECTUM: Normal. EXTREMITIES: Patient uses all symmetrically, with no abnormalities. Examination of the left knee does reveal some tenderness focally along the joint line medially. Roel test is otherwise negative. No other abnormalities noted. NEURO: Without focal deficits. SKIN: No worrisome lesions noted. IMPRESSION/REPORT/PLAN 1) Depression with less than ideal control. 2) Left knee pain, suspicious for meniscal tear. 3) Status post tonsillectomy and adenoidectomy. 4) Status post ear tube replacement. 5) Status post tubal ligation. 6) Status post hernia repair. 7) Status post ankle surgery. 8) Status post cholecystectomy. PLAN: I am going to increase her citalopram to 40 mg daily. I will leave her other medications the same. I am also going to schedule her for an MRI of the left knee. I will notify her of the results and manage accordingly. I will check labs today too. We will get her scheduled for a mammogram. This will bring her up to date with all preventive care measures. Nomi Rust M.D. agb Electronically Signed By: NOMI RUST MD On: 04/20/2010 10:32 Source: [facility] MHSDOLBEYNONRADSYS Document Id: [id number] LIEUTENANT documented in this encounter Miscellaneous Notes Miscellaneous - Nomi Rust M.D. - 04/16/2010 4:09 PM CST Results Notification Document Contains Addenda Addendum by MERCEDES FLOOD on 16 April 2010 17:43:49 DESK LIEUTENANT PT NOTIFIED. From: NOMI RUST MD To: CRYSTAL Ye Nurse Pool Sent: 04/16/2010 16:09:54 DESK LIEUTENANT ! Show up: 04/16/2010 16:09:00 DESK LIEUTENANT Subject: Results Notification Actions: Notify patient of results Due Date/Time: 04/16/2010 16:09:00 DESK LIEUTENANT Source: [facility] POWERCHART Document Id: [id number] Electronically signed by Conversion, [facility] Supervisor [id number] at 07/14/2016 6:12 PM CDT Miscellaneous - Mercedes Madera C.MFarzanaAFarzana - 04/16/2010 10:47 AM CST MRI Screening Questionnaire MRI Screening Questionnaire Entered On: 04/16/2010 10:50 DESK LIEUTENANT Performed On: 04/16/2010 10:47 DESK LIEUTENANT by MERCEDES FLOOD MRI Questionnaire Previous MRI, CT, or X-rays Done: Yes Location of previous MRI, CTor X-ray: [facility] 04/16/10 MERCEDES FLOOD - 04/16/2010 10:47 DESK LIEUTENANT MRI/Pacemaker Pacemaker: No Automated Internal Cardiac Defibrillator: No Brain aneurysm clips: No Cochlear implant: No Implants with a magnet: No Internal electrodes/wires: No Neurostimulator/Biostimulator: No [place] cristhian catheter: No MERCEDES FLOOD - 04/16/2010 10:47 DESK LIEUTENANT Age 65 or Older: No Current Nephrotoxic Med: No Diabetes (document medication): No Glucophage*: No History of Kidney/Liver Transplant: No History of Renal Disease: No Receiving Dialysis: No MERCEDES FLOOD - 04/16/2010 10:47 DESK LIEUTENANT MRI.Intravascular Coil, Filter or Stent Intravascular Coil, Filter or Stent: No Drug Infusion Pump: No External Pain Control Device: No Intravascular Catheter/Port: No Carotid Aneurysm Clip: No Magnetic/Elec/Mech Activated Implant: No Prosthesis/Metal Implanted Surgical: No Metal Fragments in Body: No Bullets/BB's/Shrapnel in Body: No Tatoos/Perm Make-Up/Body Jewelry: Yes Hearing Aids/Dentures/Partial Plates: No Eye Surgery/Implant: No Inner Ear Surgery/Implant: No Transdermal Med or EKG Patches: No Shunt: No Penile Implant: No Breast Tissue Compressor Station Chief Engineer/Implant: No : No (document number of weeks in Comment): No MERCEDES FLOOD - 04/16/2010 10:47 DESK LIEUTENANT Claustrophobic: No Pain/Unable to Lay Still: Yes Metal In or Removed from Eyes Ever: No Form Completed: Yes MERCEDES FLOOD - 04/16/2010 10:47 DESK LIEUTENANT Source: [facility] [employer] Document Id: [id number] DESK LIEUTENANT!45 LIEUTENANT Miscellaneous - Nomi Rust M.D. - 04/16/2010 10:41 AM CST Ambulatory Patient Summary [address] [address] Visit Information Name: HANNAH CISNEROS LUPE Current Date: 04/16/2010 10:41:21 Primary Care Provider: NOMI RUST MD [id number] Your Medications Here is a list of your medications. It is important to take your medications as directed. Use a pillbox or chart to help remind you to take your medications. Please let your doctor or nurse know if you have problems taking your medications. Medication/Strength Dose Route Frequency Indications/Special Instructions/Comments citalopram (citalopram 40 mg oral tablet) 40 mg Oral once a day citalopram (citalopram 20 mg oral tablet) 30 mg Oral once a day APPT: 04-16-10 cyclobenzaprine (Flexeril 10 mg oral tablet) 10 mg Oral once a day APAP/dichloralphenazone/isometheptene (Midrin) 1 tablet Oral four times a day as needed for Headache hydrochlorothiazide (hydrochlorothiazide) 12.5 mg Oral once a day trazodone (trazodone 50 mg oral tablet) 1 tab(s) Oral once a day Your Allergies & Intolerances Substance Reaction Symptoms Category Comments amoxicillin Drug cephalosporins Drug penicillins Drug Ceclor Drug iodine Drug Your Problem List Problem Status Onset Comments Esophageal Reflux Active 10/09/2006 Carpal Tunnel Syndrome Active 09/17/2007 Unspecified Essential Hypertension Active 03/08/2008 Allergy, Unspecified, Not Elsewhere Classified Active 04/18/2008 Ganglion, Unspecified Active 01/24/2009 Major Depressive Disorder, Single Episode, Unspecified Degree Active 02/07/2009 Your Recommendations We want to make sure you get the tests, immunizations, and guidance you need to stay healthy. Here is a customized list of recommendations, based on information we have in your medical record. Your doctor may have additional recommendations for you, based on your personal medical history and risk factors. You can help us by calling us to make an appointment when you are due for your tests. Additional information regarding recommendations: Test/Treatment Last Done Next Due Additional Information Depression: PHQ-9 every 6 months 04/16/2010 10/16/2010 Screening Pap Smear every 3 years Women 21-65 02/07/2009 02/07/2012 Checks for signs of cancer of the cervix. Your Upcoming Appointments Date Time Location Reason Provider 04/16/2010 11:15 [facility] Your Goals/Additional instructions: Source: [facility] POWERCHART Document Id: [id number] Miscellaneous - Nomi Rust M.D. - 04/16/2010 10:41 AM CST Ambulatory Depart Summary [address] [address] Visit Information Name: HANNAH CISNEROS Current Date: 04/16/2010 10:41:20 Primary Care Provider: NOMI RUST MD [id number] HANNAH CISNEROS has been given the following list of medications: Your Medications It is important to take your medications as directed. Use a pill box or chart to help remind you to take your medications. Please let your doctor or nurse know if you have problems taking your medications. Medication/Strength Dose Route Frequency Indications/Special Instructions/Comments citalopram (citalopram 40 mg oral tablet) 40 mg Oral once a day citalopram (citalopram 20 mg oral tablet) 30 mg Oral once a day APPT: 04-16-10 cyclobenzaprine (Flexeril 10 mg oral tablet) 10 mg Oral once a day APAP/dichloralphenazone/isometheptene (Midrin) 1 tablet Oral four times a day as needed for Headache hydrochlorothiazide (hydrochlorothiazide) 12.5 mg Oral once a day trazodone (trazodone 50 mg oral tablet) 1 tab(s) Oral once a day Additional Information: Yes - Current list of reconciled medications is provided and explained to the patient and/or family, guardian/caregiver. Source: [facility] POWERCHART Document Id: [id number] Electronically signed by Aaron [facility] Supervisor [id number] at 07/14/2016 6:12 PM CDT Miscellnakul - Nomi Rust M.D. - 04/16/2010 10:12 AM CST PHQ-9 PHQ-9 Entered On: 04/16/2010 10:13 DESK LIEUTENANT Performed On: 04/16/2010 10:12 DESK LIEUTENANT by NOMI RUST MD PHQ-9 Little interest or pleasure in doing things: Several days Feeling down, depressed, or hopeless: Nearly every day Trouble falling or staying asleep, or sleeping too much: Nearly every day Feeling tired or having little energy: Nearly every day Poor appetite or overeating: Nearly every day Feeling bad about yourself or that you are a failure: More than half the days Trouble concentrating on things: Several days Moving or speaking slowly; restless or fidgety: Several days Thoughts that you would be better off /hurting self: Not at all PHQ-9 Calculated Score: 17 Problems make work, home, or dealing with others: Very difficult NOMI RUST MD - 04/16/2010 10:12 DESK LIEUTENANT Source: [facility] [employer] Document Id: [id number] DESK LIEUTENANT!13 LIEUTENANT Miscellaneous - Aaron, Carlton Provider Ser - 04/16/2010 9:49 AM DESK LIEUTENANT Adult Facialist Intake/History Adult Facialist Intake/History Entered On: 04/16/2010 9:52 DESK LIEUTENANT Performed On: 04/16/2010 9:49 DESK LIEUTENANT by CHIP GUERRA LPN Intake Chief Complaint: annual physical Temperature Oral: 36.7C(Converted to: 98.1DegF) Peripheral Pulse Rate: 76/min Respiratory Rate: 16/min Systolic Blood Pressure: 116mmHg Diastolic Blood Pressure: 72mmHg NIBP Mean: 87mmHg BP Location: Right upper extremity Height: 160.00cm(Converted to: 5ft 3in, 62.99in) Actual Weight: 84.300kg(Converted to: 185lb 14oz) Dosing Weight Clinic: 84.30kg Clinic BSA: 1.94 Body Mass Index: 33kg/m2 CHIP GUERRA LPN - 04/16/2010 9:49 DESK LIEUTENANT Subjective Pain Symptoms: No CHIP GUERRA LPN - 04/16/2010 9:49 DESK LIEUTENANT Dependent Habits Tobacco Use/Currently Using: Yes CHIP GUERRA LPN - 04/16/2010 9:49 DESK LIEUTENANT Tobacco Use Grid Type: Cigarettes Cigarette Use Packs/Day: 0.5 CHIP GUERRA LPN - 04/16/2010 9:49 DESK LIEUTENANT [facility]ies [facility] Document Id: [id number] DESK LIEUTENANT!23 Miscellaneous - Conversion, Historical Provider Ser - 04/16/2010 9:49 AM DESK LIEUTENANT Health Assessment Health Assessment Entered On: 04/16/2010 9:52 DESK LIEUTENANT Performed On: 04/16/2010 9:49 DESK LIEUTENANT by CHIP GUERRA LPN Nutrition Nutrition Risk Factors by History Adult: None CHIP GUERRA LPN - 04/16/2010 9:49 DESK LIEUTENANT Functional Current Daily Living Assistance: None CHIP GUERRA LPN - 04/16/2010 9:49 DESK LIEUTENANT Dependent Habits Tobacco Use/Currently Using: Yes CHIP GUERRA LPN - 04/16/2010 9:49 DESK LIEUTENANT Psychosocial Domestic Concerns: None CHIP GUERRA LPN - 04/16/2010 9:49 DESK LIEUTENANT Advance Directive Advanced Directives: No CHIP GUERRA LPN - 04/16/2010 9:49 DESK LIEUTENANT Educ Needs Learning Style Preference Adult Grid Patient: None Family: None CHIP GUERRA LPN - 04/16/2010 9:49 DESK LIEUTENANT Source: [facility] Document Id: [id number] DESK LIEUTENANT!15 documented in this encounter Plan of Treatment Not on filedocumented as of this encounter Procedures Procedure Name Priority Date/Time Associated Diagnosis Comme nts DX KNEE LEFT 3 Routine 04/16/2010 11:15 AM Result s for this VIEWS DESK LIEUTENANT procedure are i n the results section. documented in this encounter Results DX Knee Left 3 Views (04/16/2010 11:15 AM DESK LIEUTENANT) Anatomical Region Laterality Modality Lower Extremity, Knee Left Radiographic Imagi ng Specimen (Source) Anatomical Collection Method Collection Time Re ceived Time Location / / Volume Laterality 04/16/2010 11:15 AM DESK LIEUTENANT Narrative 04/16/2010 12:00 PM DESK LIEUTENANT Left knee. INDICATION Knee pain, pre MRI evaluation. FINDINGS Mild medial joint space narrowing. ??No appreciable fractures. ??Normal mineralization. ??Normal alignment. ??Le ft knee otherwise negative for acute findings. Romario Snell, ?? olu ?D: 0 04/16/2010T: 04/16/2010 12:00 pm M.D. ? THIS IS AN ELEC TRONICALLY VERIFIED REPORT 04/16/2010 12:00 PM: ??Casey Carcamo Procedure Note Romario Snell M.D. / Provider, Estefania marcum M.D. - 07/03/2016 Left knee. INDICATION Knee pain, pre MRI evaluation. FINDINGS Mild medial joint space narrowing. No ap preciable fractures. Normal mineralization. Normal alignment. Left k nee otherwise negative for acute findings. olu Carcamo T: 12:00 pm M.D. THIS IS AN ELECTRONICALLY VERIFIED REPORT 04/16/2010 12:00 PM: Srinivasan Carcamo Historical Provider IMG DIAGNOSTIC IMAGING PROCE DURES documented in this encounter Visit Diagnoses Not on filedocumented in this encounter Additional Health Concerns Assessment Noted Time PHQ-9 Depression Total Score: 17 04/16/2010 10:[address] documented as of this encounter
--- OUTSIDE RECORDS SUMMARY | 2022-01-23 07:23 | XMS_ITS | Encounter Summary ---
:1965 Author Organization [facility] Address [address] [place] [address] Care Team Providers Name Role Phone Unavailable Primary Care Provider Unavailable Encounter Details Date Type Department Care Team Description 07/04/2003 Hospital Encounter [facility] Saurabh Lozada W, P.A. [address] [place] [address] (Wo rk) Social History Tobacco Use Types [...] do you attend restoration or Never 2021 pentecostal services? Do you [...]
--- OUTSIDE RECORDS SUMMARY | 2022-01-23 07:23 | XMS_ITS | Encounter Summary ---
:1965 Author Organization [facility] Address [address] [place] [address] Care Team Providers Name Role Phone Unavailable Primary Care Provider Unavailable Encounter Details Date Type Department Care Team Description 10/30/2003 Hospital Encounter [facility] Provider, Nd michelle Social History Tobacco Use Types Packs/Day Years [...] do you attend tenriism or Never 2021 buddhist services? Do you belong to any clubs [...]
--- OUTSIDE RECORDS SUMMARY | 2022-01-23 07:23 | XMS_ITS | Encounter Summary ---
:1965 Author Organization [facility] Address [address] [place] [address] Care Team Providers Name Role Phone Unavailable Primary Care Provider Unavailable Encounter Details Date Type Department Care Team Description 05/16/2003 Hospital Encounter [facility] Neris Belcher M.D. [address] [place] [address] (Wo rk) Social History Tobacco [...] do you attend hoahaoism or Never 2021 taoism services? Do you [...]
--- OUTSIDE RECORDS SUMMARY | 2022-01-23 07:23 | XMS_ITS | Encounter Summary ---
:1965 Author Organization [facility] Address [address] [place] [address] Care Team Providers Name Role Phone Unavailable Primary Care Provider Unavailable Encounter Details Date Type Department Care Team Description 06/19/2005 Hospital Encounter [facility] Peña M.D. [address] [place], [place] [address] (Wo rk) Social History Tobacco Use Types [...] do you attend christianity or Never 2021 samaritan services? Do you [...]
--- OUTSIDE RECORDS SUMMARY | 2022-01-23 07:23 | XMS_ITS | Encounter Summary ---
:1965 Author Organization [facility] Address [address] [place] [address] Care Team Providers Name Role Phone Unavailable Primary Care Provider Unavailable Encounter Details Date Type Department Care Team Description 06/30/2006 Hospital Encounter [facility] Neris Belcher M.D. [address] [place] [address] (Wo rk) Social History Tobacco [...] or relatives? How often do you attend bahai or Never 2021 yazidism services? Do you belong to any clubs or No 02/16/2021 organizations such as bahai groups, unions, fraternal or athletic groups, or [...]
--- OUTSIDE RECORDS SUMMARY | 2022-01-23 07:23 | XMS_ITS | Encounter Summary ---
:1965 Author Organization [facility] Address [address] [place] [address] Care Team Providers Name Role Phone Unavailable Primary Care Provider Unavailable Encounter Details Date Type Department Care Team Description 05/05/2002 Hospital Encounter [facility] Moi Villafuerte M.D. [address] [place], [place] [address] (Wo rk) Social History Tobacco Use Types [...] do you attend anabaptism or Never 2021 jew services? Do you [...]
--- OUTSIDE RECORDS SUMMARY | 2022-01-23 07:23 | XMS_ITS | Encounter Summary ---
:1965 Author Organization [facility] Address [address] [place] [address] Care Team Providers Name Role Phone Unavailable Primary Care Provider Unavailable Encounter Details Date Type Department Care Team Description 04/23/2002 Hospital Encounter [facility] Provider, Md michelle Social History Tobacco Use Types Packs/Day [...] or relatives? How often do you attend faith or Never 2021 gnosticism services? Do you belong to any clubs or No 02/16/2021 organizations such as faith groups, unions, fraternal or athletic groups, or [...]
--- OUTSIDE RECORDS SUMMARY | 2022-01-23 07:23 | XMS_ITS | Encounter Summary ---
:1965 Author Organization [facility] Address [address] [place] [address] Care Team Providers Name Role Phone Unavailable Primary Care Provider Unavailable Encounter Details Date Type Department Care Team Description 10/30/2007 Hospital Encounter [facility] Neris Belcher M.D. [address] [place] [address] (Wo rk) Social History Tobacco [...] do you attend baptism or Never 2021 yarsanism services? Do you [...]
--- OUTSIDE RECORDS SUMMARY | 2022-01-23 07:23 | XMS_ITS | Encounter Summary ---
:1965 Author Organization [facility] Address [address] [place] [address] Care Team Providers Name Role Phone Unavailable Primary Care Provider Unavailable Encounter Details Date Type Department Care Team Description 05/05/2003 Hospital Encounter [facility] Ginger Reyna M.D. [address] [place], [place] [address] (Wo rk) Social History Tobacco Use Types [...] do you attend mormon or Never 2021 nondenominational services? Do you belong to any clubs or No 02/16/2021 organizations such as mormon groups, unions, fraternal or athletic groups, or [...]
--- OUTSIDE RECORDS SUMMARY | 2022-01-23 07:23 | XMS_ITS | Encounter Summary ---
:1965 Author Organization [facility] Address [address] [place] [address] Care Team Providers Name Role Phone Unavailable Primary Care Provider Unavailable Encounter Details Date Type Department Care Team Description 04/21/2003 Hospital Encounter [facility] Neris Belcher M.D. [address] [place] [address] (Wo rk) Social History Tobacco [...] do you attend yazidism or Never 2021 rastafarian services? Do you belong to any clubs [...]
--- OUTSIDE RECORDS SUMMARY | 2022-01-23 07:23 | XMS_ITS | Encounter Summary ---
:1965 Author Organization [facility] Address [address] [place] [address] Care Team Providers Name Role Phone Unavailable Primary Care Provider Unavailable Encounter Details Date Type Department Care Team Description 07/19/2005 Hospital Encounter [facility] Neris Belcher M.D. [address] [place] [address] (Wo rk) Social History Tobacco [...] or relatives? How often do you attend orthodox or Never 2021 baptist services? Do you belong to any clubs or No 02/16/2021 organizations such as orthodox groups, unions, fraternal or athletic groups, [...]
--- OUTSIDE RECORDS SUMMARY | 2022-01-23 07:23 | XMS_ITS | Encounter Summary ---
:1965 Author Organization [facility] Address [address] [place] [address] Care Team Providers Name Role Phone Unavailable Primary Care Provider Unavailable Encounter Details Date Type Department Care Team Description 04/05/2004 Hospital Encounter [facility] Romario Allred M.D. [address] [place] [address] (Wo rk) Social History Tobacco [...] do you attend taoist or Never 2021 jainism services? Do you [...]
--- OUTSIDE RECORDS SUMMARY | 2022-01-23 07:23 | XMS_ITS | Encounter Summary ---
:1965 Author Organization [facility] Address [address] [place] [address] Care Team Providers Name Role Phone Unavailable Primary Care Provider Unavailable Encounter Details Date Type Department Care Team Description 05/14/2005 Hospital Encounter [facility] MRI Provider, Historic al Social History Tobacco Use Types Packs/Day Years [...] do you attend voodoo or Never 2021 sabianist services? Do you [...] or slept in a correction (including now)? Sex Assigned at Date Recorded Female 10/01/2017 7:47 AM CDT documented as of this encounter Plan of Treatment Not on filedocumented as of this encounter Visit Diagnoses Not on filedocumented in this encounter
--- OUTSIDE RECORDS SUMMARY | 2022-01-23 07:23 | XMS_ITS | Encounter Summary ---
:1965 Author Organization [facility] Address [address] [place] [address] Care Team Providers Name Role Phone Unavailable Primary Care Provider Unavailable Encounter Details Date Type Department Care Team Description 01/01/2003 Hospital Encounter [facility] Albino Conde D.OFarzana Social History Tobacco Use Types Packs/Day Years [...] or relatives? How often do you attend denominational or Never 2021 buddhist services? Do you belong to any clubs or No 02/16/2021 organizations such as denominational groups, unions, fraternal or athletic groups, or [...]
--- OUTSIDE RECORDS SUMMARY | 2022-01-23 07:23 | XMS_ITS | Encounter Summary ---
:1965 Author Organization [facility] Address [address] [place] [address] Care Team Providers Name Role Phone Unavailable Primary Care Provider Unavailable Encounter Details Date Type Department Care Team Description 11/25/2006 Hospital Encounter [facility] Provider, Ar michelle Social History Tobacco Use Types Packs/Day [...] do you attend christianity or Never 2021 tenriism services? Do you belong to any clubs [...]
--- OUTSIDE RECORDS SUMMARY | 2022-01-23 07:23 | XMS_ITS | Encounter Summary ---
:1965 Author Organization [facility] Address [address] [place] [address] Care Team Providers Name Role Phone Unavailable Primary Care Provider Unavailable Encounter Details Date Type Department Care Team Description 03/11/2006 Hospital Encounter [facility] Dann Castrejon M.D. [address] [place], [place] [phone] (Wo rk) Social History [...] or relatives? How often do you attend alevism or Never 2021 yazidism services? Do you belong to any clubs or No 02/16/2021 organizations such as alevism groups, unions, fraternal or athletic groups, or [...]
--- OUTSIDE RECORDS SUMMARY | 2022-01-23 07:23 | XMS_ITS | Encounter Summary ---
:1965 Author Organization [facility] Address [address] [place] [address] Care Team Providers Name Role Phone Unavailable Primary Care Provider Unavailable Encounter Details Date Type Department Care Team Description 06/21/2002 Hospital Encounter [facility] Saurabh Lozada W, P.A. [address] [place] [address] (Wo rk) Social History Tobacco [...] do you attend taoism or Never 2021 yarsanism services? Do you [...]
--- OUTSIDE RECORDS SUMMARY | 2022-01-23 07:23 | XMS_ITS | Encounter Summary ---
:1965 Author Organization [facility] Address [address] [place] [address] Care Team Providers Name Role Phone Unavailable Primary Care Provider Unavailable Encounter Details Date Type Department Care Team Description 11/13/2005 Hospital Encounter [facility]X [facility] Dann Castrejon M.D. [address] [place], [place] [phone] (Wo rk) Social History [...] do you attend bahai or Never 2021 mormonism services? Do you [...]
--- OUTSIDE RECORDS SUMMARY | 2022-01-23 07:23 | XMS_ITS | Encounter Summary ---
:1965 Author Organization [facility] Address [address] [place] [address] Care Team Providers Name Role Phone Unavailable Primary Care Provider Unavailable Encounter Details Date Type Department Care Team Description 05/20/2003 Hospital Encounter [facility]X [facility] Ginger Reyna M.D. [address] [place], [place] [address] (Wo rk) Social History [...] do you attend cheondoism or Never 2021 restorationism services? Do you [...]
--- OUTSIDE RECORDS SUMMARY | 2022-01-23 07:23 | XMS_ITS | Encounter Summary ---
:1965 Author Organization [facility] Address [address] [place] [address] Care Team Providers Name Role Phone Unavailable Primary Care Provider Unavailable Encounter Details Date Type Department Care Team Description 12/01/2001 Hospital Encounter [facility]er[facility] Belcher M.[facility] [address] [place] [address] (Wo rk) Social History Tobacco [...] do you attend yarsanism or Never 2021 nondenominational services? Do you [...]
--- OUTSIDE RECORDS SUMMARY | 2022-01-23 07:23 | XMS_ITS | Encounter Summary ---
:1965 Author Organization [facility] Address [address] [place] [address] Care Team Providers Name Role Phone Unavailable Primary Care Provider Unavailable Encounter Details Date Type Department Care Team Description 11/04/2007 Hospital Encounter HX NO MAPPING Provider, Historical [...] or relatives? How often do you attend scientology or Never 2021 yarsanism services? Do you belong to any clubs or No 02/16/2021 organizations such as scientology groups, unions, fraternal or athletic groups, or [...]
--- OUTSIDE RECORDS SUMMARY | 2022-01-23 07:23 | XMS_ITS | Encounter Summary ---
:1965 Author Organization [facility] Address [address] [place] [address] Care Team Providers Name Role Phone Unavailable Primary Care Provider Unavailable Encounter Details Date Type Department Care Team Description 05/20/2005 Hospital Encounter [facility] Neris Belcher M.D. [address] [place] [address] (Wo rk) Social History Tobacco [...] do you attend yazidism or Never 2021 spiritism services? Do you [...]
--- OUTSIDE RECORDS SUMMARY | 2022-01-23 07:23 | XMS_ITS | Encounter Summary ---
:1965 Author Organization [facility] [place] [facility] Address [address] [place] [address] Care Team Providers Name Role Phone Unavailable Primary Care Provider Unavailable Encounter Details Date Type Department Care Team Description 05/26/2002 Hospital Encounter [facility] Provider, [...] do you attend baptist or Never 2021 adventist services? Do you [...]
--- OUTSIDE RECORDS SUMMARY | 2022-01-23 07:23 | XMS_ITS | Encounter Summary ---
:1965 Author Organization [facility] Address [address] [place] [address] Care Team Providers Name Role Phone Unavailable Primary Care Provider Unavailable Encounter Details Date Type Department Care Team Description 03/08/2008 Hospital Encounter [facility]X [facility] Hubert [...] do you attend confucianism or Never 2021 pentecostalism services? Do you [...]
--- OUTSIDE RECORDS SUMMARY | 2022-01-23 07:23 | XMS_ITS | Encounter Summary ---
:1965 Author Organization [facility] Address [address] [place] [address] Care Team Providers Name Role Phone Unavailable Primary Care Provider Unavailable Encounter Details Date Type Department Care Team Description 06/02/2005 Hospital Encounter [facility] Saurabh Lozada W, P.A. [address] [place] [address] (Wo rk) Social History Tobacco [...] do you attend hindu or Never 2021 episcopal services? Do you belong to any clubs [...]
--- OUTSIDE RECORDS SUMMARY | 2022-01-23 07:23 | XMS_ITS | Encounter Summary ---
:1965 Author Organization [facility] Address [address] [place] [address] Care Team Providers Name Role Phone Unavailable Primary Care Provider Unavailable Encounter Details Date Type Department Care Team Description 11/21/2005 [facility] [address] [place] [address] (Wo rk) Social History Tobacco [...] do you attend worship or Never 2021 mormon services? Do you belong to any clubs or No 02/16/2021 organizations such as worship groups, unions, fraternal or athletic groups, or [...]
--- OUTSIDE RECORDS SUMMARY | 2022-01-23 07:23 | XMS_ITS | Encounter Summary ---
:1965 Author Organization [facility] Address [address] [place] [address] Care Team Providers Name Role Phone Unavailable Primary Care Provider Unavailable Encounter Details Date Type Department Care Team Description 09/17/2007 Hospital Encounter [facility] Neris Belcher M.D. [address] [place] [address] (Wo rk) Social History Tobacco [...] do you attend zoroastrianism or Never 2021 synagogue services? Do you belong to any clubs or No 02/16/2021 organizations such as zoroastrianism groups, unions, fraternal or athletic groups, or [...]
--- OUTSIDE RECORDS SUMMARY | 2022-01-23 07:23 | XMS_ITS | Encounter Summary ---
:1965 Author Organization [facility] Address [address] [place] [address] Care Team Providers Name Role Phone Unavailable Primary Care Provider Unavailable Encounter Details Date Type Department Care Team Description 01/26/2007 Hospital [facility] Neris Belcher M.D. [address] [place] [address] (Wo rk) Social History Tobacco [...] do you attend lutheran or Never 2021 anabaptist services? Do you [...]
--- OUTSIDE RECORDS SUMMARY | 2022-01-23 07:23 | XMS_ITS | Encounter Summary ---
:1965 Author Organization [facility] Address [address] [place] [address] Care Team Providers Name Role Phone Unavailable Primary Care Provider Unavailable Encounter Details Date Type Department Care Team Description 03/06/2007 Hospital Encounter [facility]X [facility] Dann Castrejon M.D. [address] [place], [place] [phone] (Wo rk) Social History [...] do you attend religious or Never 2021 church services? Do you [...]
--- OUTSIDE RECORDS SUMMARY | 2022-01-23 07:23 | XMS_ITS | Encounter Summary ---
:1965 Author Organization [facility] Address [address] [place] [address] Care Team Providers Name Role Phone Unavailable Primary Care Provider Unavailable Encounter Details Date Type Department Care Team Description 04/02/2005 Hospital Encounter [facility] Neris Belcher M.D. [address] [place] [address] (Wo rk) Social History Tobacco [...] do you attend voodoo or Never 2021 hoahaoism services? Do you [...]
--- OUTSIDE RECORDS SUMMARY | 2022-01-23 07:23 | XMS_ITS | Encounter Summary ---
:1965 Author Organization [facility] Address [address] [place] [address] Care Team Providers Name Role Phone Unavailable Primary Care Provider Unavailable Encounter Details Date Type Department Care Team Description 12/21/2001 Hospital Encounter [facility]X [facility] Ginger Reyna M.D. [address] [place], [place] [address] (Wo rk) Social History [...] do you attend presybeterian or Never 2021 uatsdin services? Do you belong to any clubs [...]
--- OUTSIDE RECORDS SUMMARY | 2022-01-23 07:23 | XMS_ITS | Encounter Summary ---
:1965 Author Organization [facility] Address [address] [place] [address] Care Team Providers Name Role Phone Unavailable Primary Care Provider Unavailable Encounter Details Date Type Department Care Team Description 09/01/2007 Hospital Encounter [facility]X [facility] Chapis Henriquez P.A. [address] [place] [address] (Wo rk) Social History Tobacco Use Types [...] do you attend samaritan or Never 2021 gnosticist services? Do you [...]
--- OUTSIDE RECORDS SUMMARY | 2022-01-23 07:24 | XMS_ITS | Encounter Summary ---
:[address] [facility] Address [address] [place] [address] Care Team Providers Name Role Phone Unavailable Primary Care Provider Unavailable Encounter Details Date Type Department Care Team Description 07/29/2000 Hospital [facility]eris Belcher M.[facility]. [address] [place] [address] (Wo rk) Social History Tobacco [...] do you attend mormon or Never 2021 yazidism services? Do you [...]
--- OUTSIDE RECORDS SUMMARY | 2022-01-23 07:24 | XMS_ITS | Encounter Summary ---
:1965 Author Organization [facility] Address [address] [place] [address] Care Team Providers Name Role Phone Unavailable Primary Care Provider Unavailable Encounter Details Date Type Department Care Team Description 07/08/2000 Hospital Encounter [facility] Nacho Johns M.D. Social History Tobacco Use Types Packs/Day [...] do you attend denominational or Never 2021 islam services? Do you [...]
--- OUTSIDE RECORDS SUMMARY | 2022-01-23 07:24 | XMS_ITS | Encounter Summary ---
:1965 Author Organization [facility] Address [address] [place] [address] Care Team Providers Name Role Phone Unavailable Primary Care Provider Unavailable Encounter Details Date Type Department Care Team Description 08/12/2000 Hospital Encounter [facility]X [facility] Dann Castrejon M.D. [address] [place], [place] [phone] (Wo rk) Social History [...] do you attend orthodox or Never 2021 christianity services? Do you belong to any clubs [...]
--- OUTSIDE RECORDS SUMMARY | 2022-01-23 07:24 | XMS_ITS | Encounter Summary ---
:1965 Author Organization [facility] Address [address] [place] [address] Care Team Providers Name Role Phone Unavailable Primary Care Provider Unavailable Encounter Details Date Type Department Care Team Description 01/19/2001 Hospital Encounter [facility]X [facility] Provider, Wy michelle Social History Tobacco Use Types Packs/Day [...] do you attend pentecostalism or Never 2021 spiritism services? Do you [...]
--- OUTSIDE RECORDS SUMMARY | 2022-01-23 07:24 | XMS_ITS | Encounter Summary ---
:1965 Author Organization [facility] Address [address] [place] [address] Care Team Providers Name Role Phone Unavailable Primary Care Provider Unavailable Encounter Details Date Type Department Care Team Description 02/04/2001 Hospital Encounter [facility] Provider, [place] michelle Social History Tobacco Use Types Packs/Day [...] do you attend zoroastrianism or Never 2021 cheondoism services? Do you [...]
--- OUTSIDE RECORDS SUMMARY | 2022-01-23 07:24 | XMS_ITS | Encounter Summary ---
:1965 Author Organization [facility] Address [address] [place] [address] Care Team Providers Name Role Phone Unavailable Primary Care Provider Unavailable Encounter Details Date Type Department Care Team Description 05/14/2001 Hospital Encounter [facility] Rik Gonzalez D.O. [address] [place], [place] [address] (Wo rk) Social History Tobacco Use Types [...] do you attend anabaptist or Never 2021 latter day services? Do [...]
--- OUTSIDE RECORDS SUMMARY | 2022-01-23 07:24 | XMS_ITS | Encounter Summary ---
:1965 Author Organization [facility] Address [address] [place] [address] Care Team Providers Name Role Phone Unavailable Primary Care Provider Unavailable Encounter Details Date Type Department Care Team Description 08/05/2000 Hospital Encounter [facility]X [facility] Dann Castrejon M.D. [address] [place], [place] [phone] (Wo rk) Social History [...] do you attend islam or Never 2021 sabianist services? Do you [...]
--- OUTSIDE RECORDS SUMMARY | 2022-01-23 07:24 | XMS_ITS | Encounter Summary ---
:1965 Author Organization [facility] Address [address] [place] [address] Care Team Providers Name Role Phone Unavailable Primary Care Provider Unavailable Encounter Details Date Type Department Care Team Description 08/07/2000 Hospital Encounter [facility]X [facility] SURGERY Nacho [...] do you attend caodaism or Never 2021 mosque services? Do you belong to any clubs [...]
--- OUTSIDE RECORDS SUMMARY | 2022-01-23 07:24 | XMS_ITS | Encounter Summary ---
:1965 Author Organization [facility] Address [address] [place] [address] Care Team Providers Name Role Phone Unavailable Primary Care Provider Unavailable Encounter Details Date Type Department Care Team Description 08/12/2000 Hospital Encounter [facility]X [facility] SURGERY Nacho [...] or relatives? How often do you attend jainism or Never 2021 restorationism services? Do you belong to any clubs or No 02/16/2021 organizations such as jainism groups, unions, fraternal or athletic groups, or [...]
--- OUTSIDE RECORDS SUMMARY | 2022-01-23 07:24 | XMS_ITS | Encounter Summary ---
:1965 Author Organization [facility] Address [address] [place] [address] Care Team Providers Name Role Phone Unavailable Primary Care Provider Unavailable Encounter Details Date Type Department Care Team Description 07/04/2000 Hospital [facility] Neris Belcher M.D. [address] [place] [address] (Wo rk) Social History Tobacco [...] do you attend restorationist or Never 2021 lutheran services? Do you [...]
--- OUTSIDE RECORDS SUMMARY | 2022-01-23 07:24 | XMS_ITS | Encounter Summary ---
:1965 Author Organization [facility] Address [address] [place] [address] Care Team Providers Name Role Phone Unavailable Primary Care Provider Unavailable Encounter Details Date Type Department Care Team Description 05/21/2000 Hospital Encounter [facility]X [facility] Neris Belcher M.D. [address] [place] [address] (Wo rk) Social History Tobacco [...] do you attend yarsani or Never 2021 yazidism services? Do you [...]
--- OUTSIDE RECORDS SUMMARY | 2022-01-23 07:24 | XMS_ITS | Encounter Summary ---
:1965 Author Organization [facility] Address [address] [place] [address] Care Team Providers Name Role Phone Unavailable Primary Care Provider Unavailable Encounter Details Date Type Department Care Team Description 02/18/2000 Hospital Encounter [facility] Neris Belcher M.D. [address] [place] [address] (Wo rk) Social History Tobacco [...] do you attend uatsdin or Never 2021 latter-day services? Do you [...]
--- OUTSIDE RECORDS SUMMARY | 2022-01-23 07:24 | XMS_ITS | Encounter Summary ---
:1965 Author Organization [facility] Address [address] [place] [address] Care Team Providers Name Role Phone Unavailable Primary Care Provider Unavailable Encounter Details Date Type Department Care Team Description 12/31/2000 Hospital Encounter [facility] Emmett Freeman M.D. [address] [place], [place] [address] (Wo rk) Social History Tobacco Use Types [...] do you attend uatsdin or Never 2021 hindu services? Do you [...]
--- OUTSIDE RECORDS SUMMARY | 2022-01-23 07:24 | XMS_ITS | Encounter Summary ---
:1965 Author Organization [facility] Address [address] [place] [address] Care Team Providers Name Role Phone Unavailable Primary Care Provider Unavailable Encounter Details Date Type Department Care Team Description 04/18/2000 Hospital Encounter [facility] Saurabh Lozada W, P.A. [address] [place] [address] (Wo rk) Social History Tobacco [...] do you attend pentecostalism or Never 2021 bahai services? Do you [...]
--- OUTSIDE RECORDS SUMMARY | 2022-01-23 07:24 | XMS_ITS | Encounter Summary ---
:1965 Author Organization [facility] Address [address] [place] [address] Care Team Providers Name Role Phone Unavailable Primary Care Provider Unavailable Encounter Details Date Type Department Care Team Description 01/28/2001 Hospital En[facility] Neris Belcher M.D. [address] [place] [address] (Wo rk) Social History Tobacco [...] do you attend pentecostal or Never 2021 sikh services? Do you [...]
--- OUTSIDE RECORDS SUMMARY | 2022-01-23 07:24 | XMS_ITS | Encounter Summary ---
:1965 Author Organization [facility] Address [address] [place] [address] Care Team Providers Name Role Phone Unavailable Primary Care Provider Unavailable Encounter Details Date Type Department Care Team Description 05/20/2001 Hospital Encounter [facility]X [facility] Neris Belcher M.D. [address] [place] [address] (Wo rk) Social History Tobacco [...] do you attend anabaptist or Never 2021 congregational services? Do you [...]
--- NOTE | 2022-01-23 08:03 | PC.NURSE ---
walked to bathroom. In a lot of pain.
[2022-01-23] MEDS: MORPHINE 4 MG/ML INJ IVP (08:19)
[2022-01-23 08:27] LABS: Appearance Urine Clear (Clear); Bilirubin Urine Negative (Negative); Blood Urine 2+ (Negative); Color Urine Yellow (Yellow); Glucose Urine Negative (Negative); Ketones Urine 3+ (Negative); Leukocyte Esterase Urine Negative (Negative); Nitrite Urine Negative (Negative); Protein Urine 2+ (Negative); Specific Gravity Urine 1.025 (1.000-1.030); Urobilinogen Urine 0.2 (0.2-1.0)
[2022-01-23 08:50] LABS: Squamous Epithelial Cell Urine Few (None-Few); WBC Urine 0-2 (0-5)
[2022-01-23 08:56] LABS: PCR FLU A Negative PCR FLU A (Negative); PCR FLU B Negative PCR FLU B (Negative); PCR RSV Negative PCR RSV (Negative)
[2022-01-23 09:01] LABS: SARS PCR* Negative SARS-CoV-2 (Negative)
[2022-01-23] MEDS: 0.9 % SODIUM CHLORIDE 500 ML 500 ML IV (09:13)
[2022-01-23] MEDS: HYDROmorphone 0.5 mg/0.5 ml inj 1 MG IVP (09:14)
--- NOTE | 2022-01-23 09:42 | ED.NURSE ---
Report given to Nyasia on M/S. All belongings sent with patient. Went by w/c to room 262. All questions answered.
[2022-01-23] MEDS: SODIUM CHLORIDE 0.9 % (FLUSH) 10 ML SYRINGE 5 ML IVF ×4 (10:39→16:24)
[2022-01-23] MEDS: HYDROmorphone 0.5 mg/0.5 ml inj IVP ×5 (11:42→23:44)
--- NOTE | 2022-01-23 11:59 | P.IMHP_ITS ---
Hospitalist- H&P: HPI History of Present Illness Date Seen: 01/23/22 Chief complaint: Appendicitis Narrative: Hannah Kahn is a 56 year old female who presented to the emergency room this morning for right lower quadrant abdominal pain. Pain began this morning around 2am (patient was at work at the time); became worse throughout her shift. She had nausea and quite a bit of dry heaving, no diarrhea. Last BM was approximately 11pm last night, harder than typical but otherwise normal. After work, she came to the emergency room thinking she had appendicitis. CT scan findings below: IMPRESSION: Moderately dilated fluid-filled loops of bowel within the left lower to mid abdomen. Although evaluation is limited due to lack of IV contrast suspect transition point within the mid abdomen. Findings concerning for small bowel obstruction, possibly a closed loop. Colonic diverticulosis without evidence of acute diverticulitis. Nonobstructing right renal calculus. Please note that all CT scans at this facility use dose modulation, iterative reconstruction, and/or weight-based dosing when appropriate to reduce radiation dose to as low as reasonably achievable. Hannah received fentanyl, morphine, and Dilaudid in the emergency room. Her pain improved, she had no further nausea or dry heaving. She is admitted to the hospital for medical management of SBO. Patient has had a cholecystectomy, tubal ligation, and hernia repair. She has also had a thyroidectomy for Graves disease, has known hypothyroidism that has been difficult to manage with PCP. She is a 1/2 pack per day smoker, lives with locally. Requests full code status. Review of Systems Status of ROS: Reports: 10 or more systems reviewed and unremarkable except as noted in History and below PFSH PFS Medical History Asthma Chronic tonsil and adenoid disease Graves disease Hypertension Hypothyroidism (acquired) Motion sickness Surgical History H/O hernia repair H/O tubal ligation History of thyroidectomy Hx of cholecystectomy Social History (Updated 01/23/22 @ 12:09 by Sangeeta Wahl MD) Narrative: Patient is , would be medical decision maker if needed. She has 3 adult sons. Works at [employer], overnight shifts. 1/2 [id number] smoker, rare ETOH. Smoking Status: Current every day smoker What tobacco products do you use: cigarettes Smoking packs per day: 0.5 Smoking cigarettes per day: 10.0 Years smoked: 30 Smoking pack-years: 15.00 Do you use any of these nicotine containing products: None Second hand tobacco smoke exposure: No Non-prescribed substance use: denies use service: No Meds Home Medications and Allergies Home Medications Medication Instructions Recorded Confirmed Type amlodipine 10 mg tablet 10 mg PO DAILY 01/23/22 01/23/22 History cetirizine 10 mg tablet 10 mg PO DAILY PRN 01/23/22 01/23/22 History epinephrine 0.3 mg/0.3 mL 0.3 ml IM PRN PRN 01/23/22 01/23/22 History injection, auto-injector fluticasone propionate 50 2 spray intranasal DAILY 01/23/22 01/23/22 History mcg/actuation nasal spray,suspension ibuprofen 600 mg tablet 600 mg PO Q6H PRN 01/23/22 01/23/22 History levothyroxine 137 mcg tablet 137 mcg PO DAILY 01/23/22 01/23/22 History Allergies Allergy/AdvReac Type Severity Reaction Status Date / Time Cephalosporins Allergy Severe Anaphylaxis Verified 01/23/22 06:33 iodine Allergy Severe Anaphylaxis Verified 01/23/22 06:33 lemon Allergy Severe Anaphylaxis Verified 01/23/22 06:33 [place] Allergy Severe Anaphylaxis Verified 01/23/22 06:33 Penicillins Allergy Severe Anaphylaxis Verified 01/23/22 06:33 tree nut Allergy Severe Anaphylaxis Verified 01/23/22 06:33 cefaclor [From Ceclor] Allergy Unknown Verified 01/23/22 06:33 cefprozil [From Cefzil] Allergy Unknown Verified 01/23/22 06:33 cefuroxime [From Ceftin] Allergy Unknown Verified 01/23/22 06:33 Exam Narrative: Exam Narrative: GEN: Alert And oriented, nontoxic in appearance, sitting in hospital bed comfortably HEENT: Normal external ears, EOMIs bilaterally, no scleral icterus CV: RRR, soft systolic murmur without concerning features R: LCTA bilaterally without concerning wheezing, rales, or rhonchi, air movement adequate Ab: soft without rebound or guarding, no concerning masses. Tolerates palpation well, although is uncomfortable during exam. Bowel sounds decreased throughout Ext: wwp, no concerning edema Skin: Petechiae around bilateral eyes from recent dry heaving, no other concerning skin lesions or rashes on exposed skin Neuro: Nonfocal Psych: Appropriate Const: Vital Signs, click to edit/add: Vital Signs - 24 hr 01/23/22 06:27 01/23/22 08:20 01/23/22 08:40 Temperature 97.7 F 97.4 F L Pulse Rate [Left P ulse Oximeter] 84 78 69 Respiratory Rate 24 16 16 Blood Pressure [Le ft Arm] Blood Pressure [Ri ght Upper Arm] 173/101 H 156/80 H 156/80 H Pulse Oximetry 98 98 98 Oxygen Delivery Me thod Room Air Room Air Room Air 01/23/22 09:00 01/23/22 09:20 01/23/22 09:47 Temperature 97.4 F L 97.8 F Pulse Rate [Left P ulse Oximeter] 93 98 72 Respiratory Rate 16 16 16 Blood Pressure [Le ft Arm] 189/81 H Blood Pressure [Ri ght Upper Arm] 142/88 H 142/80 H Pulse Oximetry 97 95 96 Oxygen Delivery Me thod Room Air Room Air Room Air Hospitalist - H&P: Result Labs Labs: Short CBC 01/23/22 Range/Units 06:45 WBC 13.08 H (4.50-11.00) K/uL Hgb 14.1 (12.0-16.0) gm/dL Hct 41.4 (33.0-51.0) % Plt Count 215 (140-440) K/uL BMP 01/23/22 06:45 Sodium 138 Potassium 3.5 L Chloride 104 Carbon Dioxide 26 BUN 16 Creatinine 0.7 Glucose 133 H Calcium 9.3 Liver Function 01/23/22 Range/Units 06:45 Total Bilirubin 0.7 (0.1-1.5) mg/dL Direct Bilirubin 0.1 (0.0-0.5) mg/dL AST 27 (12-35) U/L ALT 25 (4-35) U/L Alkaline Phosphatase 97 (40-150) U/L Albumin 4.2 (3.3-5.0) g/dL Urine 01/23/22 Range/Units 08:00 Urine Color Yellow (Yellow) Urine Appearance Clear (Clear) Urine pH 7.0 (5.0-8.5) Ur Specific [place] 1.025 (1.000-1.030) Urine Protein 2+ A (Negative) Urine Glucose (UA) Negative (Negative) Assessment and Plan Assessment and plan (1) Bowel obstruction: Problem comment: - noted on admission imaging 01/23/22 Status: Acute (2) Tobacco use: Problem comment: - 02/11 ppd Status: Acute (3) Hypothyroidism (acquired): Problem comment: - s/p thyroidectomy for Graves disease Status: Acute Plan - NPO status - General surgery referral - Nicotine replacement - SCDs and ambulation for prophylaxis
[2022-01-23] MEDS: PANTOPRAZOLE SODIUM 40 MG INJ IVP (12:33)
[2022-01-23] MEDS: LACTATED RINGERS 1000 ML 1,000 ML 125 ML IV ×2 (12:40→20:31)
[2022-01-23 13:48] LABS: Thyroid Stimulating Hormone* 0.801 uIU/mL (0.270-4.20)
--- NOTE | 2022-01-23 14:48 | PC.NURSE ---
Pt up independently/SBA to BR. Passed small amount of gas x1 in BR. States last BM was evening of 01/22. Rates abdominal pain 5-9/10, see MAR for medication administration with occasional relief.
--- NOTE | 2022-01-23 15:09 | P.GSCN_ITS ---
History of Present Illness Consult details Date Seen: 01/23/22 Consult date: 01/23/22 Narrative: The patient is a 56-year-old female who presents to the emergency department with abdominal pain which started abruptly at 2:00 a.m.. The pain was mainly on the right side also it is somewhat located in the periumbilical region. She has never had anything like this before. She was at work when this happened. She was having vomiting as well as dry heaves. This was so significant that she broke capillaries in her face. The pain is slightly better however it is fairly constant. Nothing seems to make it better. Her last bowel movement was sometime yesterday and she had a small amount of flatus last night. Review of Systems Status of ROS: Reports: 10 or more systems reviewed and unremarkable except as noted in History and below PFSH [facility] Medical History Asthma Chronic tonsil and adenoid disease Graves disease Hypertension Hypothyroidism (acquired) Motion sickness Surgical History H/O hernia repair H/O tubal ligation History of thyroidectomy Hx of cholecystectomy Social History (Updated 01/23/22 @ 12:09 by Sangeeta Wahl MD) Narrative: Patient is , would be medical decision maker if needed. She has 3 adult sons. Works at [employer], overnight shifts. 1/2 [id number] smoker, rare ETOH. Smoking Status: Current every day smoker What tobacco products do you use: cigarettes Smoking packs per day: 0.5 Smoking cigarettes per day: 10.0 Years smoked: 30 Smoking pack-years: 15.00 Do you use any of these nicotine containing products: None Second hand tobacco smoke exposure: No How often do you have a drink containing alcohol: monthly or less AUDIT-C Alcohol total score: 1 Non-prescribed substance use: denies use service: No Meds Home Medications and Allergies Home Medications Medication Instructions Recorded Confirmed Type amlodipine 10 mg tablet 10 mg PO DAILY 01/23/22 01/23/22 History cetirizine 10 mg tablet 10 mg PO DAILY PRN 01/23/22 01/23/22 History epinephrine 0.3 mg/0.3 mL 0.3 ml IM PRN PRN 01/23/22 01/23/22 History injection, auto-injector fluticasone propionate 50 2 spray intranasal DAILY 01/23/22 01/23/22 History mcg/actuation nasal spray,suspension ibuprofen 600 mg tablet 600 mg PO Q6H PRN 01/23/22 01/23/22 History levothyroxine 137 mcg tablet 137 mcg PO DAILY 01/23/22 01/23/22 History Allergies Allergy/AdvReac Type Severity Reaction Status Date / Time Cephalosporins Allergy Severe Anaphylaxis Verified 01/23/22 06:33 iodine Allergy Severe Anaphylaxis Verified 01/23/22 06:33 lemon Allergy Severe Anaphylaxis Verified 01/23/22 06:33 [place] Allergy Severe Anaphylaxis Verified 01/23/22 06:33 Penicillins Allergy Severe Anaphylaxis Verified 01/23/22 06:33 tree nut Allergy Severe Anaphylaxis Verified 01/23/22 06:33 cefaclor [From Ceclor] Allergy Unknown Verified 01/23/22 06:33 cefprozil [From Cefzil] Allergy Unknown Verified 01/23/22 06:33 cefuroxime [From Ceftin] Allergy Unknown Verified 01/23/22 06:33 Exam Narrative: Exam Narrative: General appearance: Alert, cooperative, mild distress Eyes: PERRLA, eye lids clear, and sclera white HENT Head: Normocephalic Ears: External ears normal Pulmonary: Breathing nonlabored on room air Cardiovascular Heart: Regular rate Extremities: warm and well perfused Gastrointestinal Abdominal: Scars consistent with surgical history. No hernias. Patient is moderately tender in the abdomen. She does not have peritoneal signs. Skin: Normal skin color, texture, and turgor. No rashes or lesions. Neurologic: No focal deficits Psychiatric: Alert, oriented, cooperative, normal affect. Const: Vital Signs, click to edit/add: Vital Signs - 24 hr 01/23/22 06:27 01/23/22 08:20 01/23/22 08:40 Temperature 97.7 F 97.4 F L Pulse Rate [Left P ulse Oximeter] 84 78 69 Respiratory Rate 24 16 16 Blood Pressure [Le ft Arm] Blood Pressure [Ri ght Upper Arm] 173/101 H 156/80 H 156/80 H Pulse Oximetry 98 98 98 Oxygen Delivery Me thod Room Air Room Air Room Air 01/23/22 09:00 01/23/22 09:20 01/23/22 09:47 Temperature 97.4 F L 97.8 F Pulse Rate [Left P ulse Oximeter] 93 98 72 Respiratory Rate 16 16 16 Blood Pressure [Le ft Arm] 189/81 H Blood Pressure [Ri ght Upper Arm] 142/88 H 142/80 H Pulse Oximetry 97 95 96 Oxygen Delivery Me thod Room Air Room Air Room Air 01/23/22 11:51 Temperature Pulse Rate [Left P ulse Oximeter] Respiratory Rate 16 Blood Pressure [Le ft Arm] Blood Pressure [Ri ght Upper Arm] Pulse Oximetry 96 Oxygen Delivery Me thod Room Air Results Labs Labs: Abnormal lab results 01/23/22 01/23/22 01/23/22 Range/Units 06:45 06:45 08:00 WBC 13.08 H (4.50-11.00) K/uL Neut % (Auto) 82.4 H (42.0-72.0) % Lymph % (Auto) 11.9 L (20-44) % Neut # (Auto) 10.80 H (1.7-7.0) K/uL Potassium 3.5 L (3.6-5.1) mmol/L Glucose 133 H (60-115) mg/dL Urine Protein 2+ A (Negative) Urine Ketones 3+ A (Negative) Urine Blood 2+ A (Negative) Urine RBC 5-10 A (0-2) Diabetes panel 01/23/22 Range/Units 06:45 Sodium 138 (135-149) mmol/L Potassium 3.5 L (3.6-5.1) mmol/L Chloride 104 (96-114) mmol/L Carbon Dioxide 26 (20-32) mmol/L BUN 16 (7-30) mg/dL Creatinine 0.7 (0.5-1.5) mg/dL Glucose 133 H (60-115) mg/dL Calcium 9.3 (8.4-10.6) mg/dL AST 27 (12-35) U/L ALT 25 (4-35) U/L Alkaline Phosphatase 97 (40-150) U/L Total Protein 7.2 (6.0-8.3) g/dL Albumin 4.2 (3.3-5.0) g/dL Thyroid panel 01/23/22 Range/Units 06:45 TSH 0.801 (0.270-4.20) uIU/mL Calcium panel 01/23/22 Range/Units 06:45 Calcium 9.3 (8.4-10.6) mg/dL Albumin 4.2 (3.3-5.0) g/dL Pituitary panel 01/23/22 01/23/22 Range/Units 06:45 06:45 Sodium 138 (135-149) mmol/L Potassium 3.5 L (3.6-5.1) mmol/L Chloride 104 (96-114) mmol/L Carbon Dioxide 26 (20-32) mmol/L BUN 16 (7-30) mg/dL Creatinine 0.7 (0.5-1.5) mg/dL Glucose 133 H (60-115) mg/dL Calcium 9.3 (8.4-10.6) mg/dL TSH 0.801 (0.270-4.20) uIU/mL Adrenal panel 01/23/22 Range/Units 06:45 Sodium 138 (135-149) mmol/L Potassium 3.5 L (3.6-5.1) mmol/L Chloride 104 (96-114) mmol/L Carbon Dioxide 26 (20-32) mmol/L BUN 16 (7-30) mg/dL Creatinine 0.7 (0.5-1.5) mg/dL Glucose 133 H (60-115) mg/dL Calcium 9.3 (8.4-10.6) mg/dL Total Bilirubin 0.7 (0.1-1.5) mg/dL AST 27 (12-35) U/L ALT 25 (4-35) U/L Alkaline Phosphatase 97 (40-150) U/L Total Protein 7.2 (6.0-8.3) g/dL Albumin 4.2 (3.3-5.0) g/dL All other labs normal. Imaging Abdomen CT scan report/results: report reviewed and image reviewed Additional studies: INDICATION: Right lower quadrant pain TECHNIQUE: CT abdomen and pelvis without contrast COMPARISON: None. FINDINGS: Kidney/ureters:? Right intrarenal calculus measuring 4 mm. Kidneys appear symmetric. No evidence of ureteral calculus or hydronephrosis. Liver/gallbladder/bile ducts:? The liver is normal in size, shape and attenuation. Gallbladder surgically absent. No biliary dilatation. Spleen/pancreas/adrenal glands:? The spleen, adrenal glands and pancreas are within normal limits. GI tract:? Moderately dilated fluid-filled loops of bowel within the left lower to mid abdomen. Although evaluation is limited due to lack of IV contrast suspect transition point within the mid abdomen on series 4, image 33. Is associated swirling and inflammation of the mesentery. Colonic diverticulosis without evidence of acute diverticulitis. Mild fecal retention throughout the colon. The appendix appears unremarkable. Abdominal wall/omentum/peritoneum:? No free air or significant free fluid. No mass or inflammation. Lymph nodes: Few mildly prominent right lower quadrant mesenteric lymph nodes which are nonspecific and may be reactive. Pelvis: Unremarkable pelvis. Lower chest: Unremarkable. IMPRESSION: Moderately dilated fluid-filled loops of bowel within the left lower to mid abdomen. Although evaluation is limited due to lack of IV contrast suspect transition point within the mid abdomen. Findings concerning for small bowel obstruction, possibly a closed loop. Colonic diverticulosis without evidence of acute diverticulitis. Nonobstructing right renal calculus. Please note that all CT scans at this facility use dose modulation, iterative reconstruction, and/or weight-based dosing when appropriate to reduce radiation dose to as low as reasonably achievable. Dictated by Azeem Tavera MD @ 01/23/2022 8:09:56 AM Assessment and Plan Assessment and plan (1) Bowel obstruction: Problem comment: - noted on admission imaging 01/23/22 Status: Acute (2) Tobacco use: Problem comment: - 12 ppd Status: Acute Plan The patient is a 56-year-old female who presents with abdominal pain concerning for small bowel obstruction. I reviewed the imaging with the radiologist because of concern for closed loop obstruction. The radiologist that I discussed this with did not think that there was not a significant mesenteric swirl and was less concerned about closed loop obstruction. The patient however does have fairly proved this to paid it seems somewhat uncomfortable. Unfortunately because of her anaphylaxis from [place] [address] give her CT scan with contrast. Her white blood cell count is elevated which is also concerning. I talked to the patient about bowel obstruction and the management. I am going to obtain repeat labs and a lactate as well as a CRP. If these labs remain elevated then we may have to go to the OR for exploration. If not then I would consider Gastrografin challenge. I explained this to the patient and I will follow up on her labs and reassess.
[2022-01-23 15:35] LABS: Lactate* 0.6 mmol/L (0.5-1.9)
[2022-01-23 15:42] LABS: Basophils Absolute Auto 0.03 K/uL (0.00-0.30); Basophils Percent Auto 0.3 % (0.0-3.0); Eosinophils Absolute Auto 0.01 K/uL (0.00-0.50); Eosinophils Percent Auto 0.1 % (0.0-7.0); Hematocrit 41.1 % (33.0-51.0); Hemoglobin* 13.7 gm/dL (12.0-16.0); Immature Granulocytes Abs Auto 0.01 K/uL (0.00-0.30); Immature Granulocytes Pct Auto 0.1 %; Lymphocytes Percent Auto 12.1 % (20-44); Mean Corpuscular HGB Conc 33 gm/dL (32-36); Mean Corpuscular Hemoglobin 30 pg (26-34); Mean Corpuscular Volume 89 fL (80-100); Monocytes Percent Auto 7.2 % (0.0-11.0); Neutrophils Percent Auto 80.2 % (42.0-72.0); Platelet Count* 212 K/uL (140-440); RDW Coefficient of Variation % 11.8 % (11.5-15.5); White Blood Count* 9.49 K/uL (4.50-11.00)
[2022-01-23 15:48] LABS: Slide Review Reflex No
[2022-01-23 15:59] LABS: C Reactive Protein* 0.5 mg/dL (0.5-1.0)
[2022-01-23] MEDS: NICOTINE 7 MG PATCH 1 PATCH TRANSDERMA (16:23)
--- NOTE | 2022-01-23 23:26 | PC.NURSE ---
Shift note: Pt c/o ongoing nausea, zofran given IVP. 150cc emesis this evening. Rates abdominal pain 6-8/10, Dilaudid given IVP PRN and patient verbalizes some relief. Walked around unit x2 and patient encouraged to continue ambulating regularly. BP's 170-180 systolically, Dr. Olea updated and pt home BP meds restarted.
[2022-01-23] MEDS: AMLODIPINE 10 MG TABLET PO (23:38)
--- NOTE | 2022-01-24 01:28 | PC.NURSE ---
patient vomiting X3, call placed to [facility] provider
--- NOTE | 2022-01-24 02:00 | PC.NURSE ---
Dr Sparrow updated on patient, see new orders.
[2022-01-24] MEDS: PROCHLORPERAZINE 5 MG/ML VIAL IVP ×3 (02:04→14:29)
[2022-01-24 03:00] VITALS: BP 170/82; PULSE 80; RESP 16; TEMP 36.9; O2SAT 94
[2022-01-24] MEDS: LACTATED RINGERS 1000 ML 1,000 ML 125 ML IV ×3 (03:33→23:22)
--- NOTE | 2022-01-24 05:15 | PC.NURSE ---
patient nausea resolved after Compazine, see EMAR for meds given, patient able to fall asleep after nausea resolved. up ad daniel, pain well managed, patient reports passing some flatus at the start of shift, bowels hypoactive.
[2022-01-24] MEDS: LEVOTHYROXINE 112 MCG TABLET PO (05:57)
[2022-01-24] MEDS: LEVOTHYROXINE 25 MCG TABLET PO (05:57)
[2022-01-24] MEDS: HYDROmorphone 0.5 mg/0.5 ml inj IVP ×3 (06:00→13:32)
[2022-01-24 06:31] LABS: Basophils Absolute Auto 0.02 K/uL (0.00-0.30); Basophils Percent Auto 0.2 % (0.0-3.0); Eosinophils Absolute Auto 0.02 K/uL (0.00-0.50); Eosinophils Percent Auto 0.2 % (0.0-7.0); Immature Granulocytes Abs Auto 0.05 K/uL (0.00-0.30); Immature Granulocytes Pct Auto 0.5 %; Lymphocytes Percent Auto 17.3 % (20-44); Mean Corpuscular HGB Conc 33 gm/dL (32-36); Mean Corpuscular Hemoglobin 30 pg (26-34); Mean Corpuscular Volume 90 fL (80-100); Monocytes Percent Auto 6.5 % (0.0-11.0); Neutrophils Percent Auto 75.3 % (42.0-72.0); Platelet Count* 207 K/uL (140-440); RDW Coefficient of Variation % 11.8 % (11.5-15.5); Red Blood Count 4.67 m/uL (4.00-5.20); White Blood Count* 9.95 K/uL (4.50-11.00)
[2022-01-24 06:33] LABS: Slide Review Reflex No
[2022-01-24 06:47] LABS: Chloride* 106 mmol/L (96-114); Sodium* 139 mmol/L (135-149)
[2022-01-24 06:48] LABS: Potassium* 4.1 mmol/L (3.6-5.1)
[2022-01-24 06:50] LABS: Carbon Dioxide* 30 mmol/L (20-32); Creatinine* 0.6 mg/dL (0.5-1.5); Est. Creatinine Clearance* 84.78; Estimated Glomerular Filt Rate 107 ml/min
[2022-01-24 06:51] LABS: Blood Urea Nitrogen* 11 mg/dL (7-30); Calcium* 8.9 mg/dL (8.4-10.6); Glucose* 103 mg/dL (60-115)
[2022-01-24 07:00] VITALS: BP 156/83; PULSE 71; RESP 14; TEMP 36.9; O2SAT 91
[2022-01-24] MEDS: SODIUM CHLORIDE 0.9 % (FLUSH) 10 ML SYRINGE 5 ML IVF ×5 (08:12→14:29)
[2022-01-24] MEDS: AMLODIPINE 10 MG TABLET PO (09:30)
--- NOTE | 2022-01-24 09:31 | CRLHL7_ITS ---
For Patients: As a result of the Century Cures Act, medical imaging exams and procedure reports are released immediately into your electronic medical record. You may view this report before your referring provider. If you have questions, please contact your health care provider. Indication: Follow-up small bowel obstruction. Technique: Portable supine view of the abdomen Comparison: The compliance technician image of the CT dated January 23, 2022. Findings: A few prominent loops of mid abdominal small bowel are noted. Nonspecific finding on this single-view study. No free air. Surgical changes in the right upper quadrant and the pelvis. Impression: A few prominent loops of mid abdominal small bowel are noted. Dictated by Massimo Devi MD @ 01/24/2022 10:30:23 AM (Electronically Signed)
[2022-01-24 10:30] LABS: C Reactive Protein* 0.8 mg/dL (0.5-1.0)
[2022-01-24 10:35] LABS: Lactate* 0.6 mmol/L (0.5-1.9)
[2022-01-24 11:00] VITALS: BP 190/95; PULSE 65; RESP 16; TEMP 36.9; O2SAT 93
[2022-01-24] MEDS: PANTOPRAZOLE SODIUM 40 MG INJ IVP (11:59)
[2022-01-24] MEDS: ONDANSETRON 2 MG/ML inj 4 MG IVP ×2 (11:59→17:26)
--- NOTE | 2022-01-24 12:17 | PM.GSPN ---
Subjective Subjective Date Seen: 01/24/22 Interval history: Overnight Hannah had a significant amount of vomiting. She states that she feels better from a nausea standpoint and her pain seems somewhat better though she tells me at the time of my exam it is 7 on a 10. She states that the pain is worse when she sits up. It feels better when she is laying flat. No fevers or tachycardia. She is not passing flatus. Exam Narrative: Exam Narrative: General: Alert and oriented. Appears uncomfortable CV: Regular rate and rhythm Pulmonary: Breathing nonlabored on room air Abdomen: Soft. She does not have guarding and she is much less tender today on exam. She did not have peritoneal signs with movement and actually sat up easily in bed without seeming to have discomfort. Const: Vital Signs, click to edit/add: Vital Signs - 24 hr 01/23/22 15:00 01/23/22 15:00 01/23/22 15:00 Temperature 98.5 F Pulse Rate [Left P ulse Oximeter] 79 79 Respiratory Rate 16 16 16 Blood Pressure [Le ft Arm] 189/96 H Pulse Oximetry 92 92 Oxygen Delivery Me thod Room Air Room Air 01/23/22 19:00 01/23/22 23:00 01/23/22 23:00 Temperature 98 F Pulse Rate [Left P ulse Oximeter] 63 63 Respiratory Rate 16 16 16 Blood Pressure [Le ft Arm] 175/77 H Pulse Oximetry 91 [address] [facility] Air 01/23/22 23:00 01/24/22 03:00 01/24/22 07:00 Temperature 98.3 F 98.4 F 98.4 F Pulse Rate [Left P ulse Oximeter] 67 80 71 Respiratory Rate 16 16 14 Blood Pressure [Le ft Arm] 177/94 H 170/82 H 156/83 H Pulse Oximetry 93 94 91 Oxygen Delivery In thod Room Air Room Air Room Air 01/24/22 07:00 01/24/22 07:00 01/24/22 11:00 Temperature 98.4 F Pulse Rate [Left P ulse Oximeter] 71 65 Respiratory Rate 14 14 16 Blood Pressure [Le ft Arm] 190/95 H Pulse Oximetry 91 93 Oxygen Delivery In thod Room Air Room Air Labs/Imaging Labs Labs: White blood cell count remains normal with a left shift however. Lactate is normal as well as CRP. Imaging Imaging: X-ray shows prominent dilated loops of bowel in the mid abdomen. Progress Note: A&P Assessment and plan (1) Tobacco use: Problem details: - 02/11 ppd Status: Acute (2) Bowel obstruction: Problem details: - noted on admission imaging 01/23/22 Status: Acute Plan The patient is a 56-year-old female with abdominal pain and possible bowel obstruction versus ileitis. Initial CT was concern for possible closed loop obstruction, however further discussion with Radiology this seemed less likely. Labs are all improved/stable. She seems to feel a little bit better, however I am still quite concerned about her pain. We will continue to follow her and examine her and if her symptoms change you may need to consider exploration. I would like to consider Gastrografin but she has had nausea and this may not be tolerated well. I will see how she is on repeat exam today and if she is feeling better we may try a Gastrografin challenge.
[2022-01-24 15:00] VITALS: BP 176/84; PULSE 63; RESP 16; TEMP 36.8; O2SAT 93
--- NOTE | 2022-01-24 15:19 | PM.IMPN1 ---
Progress Note: A&P Assessment and plan (1) Bowel obstruction: Problem details: - noted on admission imaging 01/23/22 - continue NPO status, appreciate input from General surgery Status: Acute (2) Tobacco use: Problem details: - 1/2 ppd Status: Acute (3) Hypothyroidism (acquired): Problem details: - s/p thyroidectomy for Graves disease - TSH within normal limits on admission Status: Acute Plan - continue NPO status - SCDs and ambulation for prophylaxis - continue IV PPI Subjective Date Seen: 01/24/22 Interval history: Hannah did have some bilious vomiting overnight, better this morning. Pain is controlled with pain medications. She has no concerns for the hospitalist team. Exam Narrative: Exam Narrative: GEN: Alert and oriented, appears ill but nontoxic in appearance, laying comfortably in bed HEENT: Normal external ears, EOMIs bilaterally, no scleral icterus CV: RRR, No concerning murmurs, rubs, or gallops R: LCTA bilaterally without concerning wheezing, rales, or rhonchi Abdomen: Mild distension, tolerates palpation, hypoactive bowel sounds Ext: wwp, no concerning edema Skin: No concerning skin lesions or rashes on exposed skin Neuro: Nonfocal Psych: Appropriate Const: Vital Signs, click to edit/add: Vital Signs - 24 hr 01/23/22 19:00 01/23/22 23:00 01/23/22 23:00 Temperature 98 F Pulse Rate [Left P ulse Oximeter] 63 63 Respiratory Rate 16 16 16 Blood Pressure [Le ft Arm] 175/77 H Pulse Oximetry 91 93 Oxygen Delivery Me thod Room Air Room Air 01/23/22 23:00 01/24/22 03:00 01/24/22 07:00 Temperature 98.3 F 98.4 F 98.4 F Pulse Rate [Left P ulse Oximeter] 67 80 71 Respiratory Rate 16 16 14 Blood Pressure [Le ft Arm] 177/94 H 170/82 H 156/83 H Pulse Oximetry 93 94 91 Oxygen Delivery Me thod Room Air Room Air Room Air 01/24/22 07:00 01/24/22 07:00 01/24/22 11:00 Temperature 98.4 F Pulse Rate [Left P ulse Oximeter] 71 65 Respiratory Rate 14 14 16 Blood Pressure [Le ft Arm] 190/95 H Pulse Oximetry 91 93 Oxygen Delivery Me thod Room Air Room Air 01/24/22 15:00 Temperature 98.3 F Pulse Rate [Left P ulse Oximeter] 63 Respiratory Rate 16 Blood Pressure [Le ft Arm] 176/84 H Pulse Oximetry 93 Oxygen Delivery Me thod Room Air Labs Labs: Laboratory Results - last 24 hr 01/23/22 01/23/22 01/23/22 15:29 15:29 15:29 WBC 9.49 RBC 4.60 Hgb 13.7 Hct 41.1 MCV 89 MCH 30 MCHC 33 RDW Coeff of Sukhdev 11.8 Plt Count 212 Neut % (Auto) 80.2 H Lymph % (Auto) 12.1 L [place] % (Auto) 7.2 Eos % (Auto) 0.1 Baso % (Auto) 0.3 Neut # (Auto) 7.60 H Lymph # (Auto) 1.10 [place] # (Auto) 0.70 Eos # (Auto) 0.01 Baso # (Auto) 0.03 Abs Immat Gran (auto) 0.01 Imm/Tot Granulo (auto) 0.1 Sodium Potassium Chloride Carbon Dioxide BUN Creatinine Estimated Creat Clear Estimated GFR Glucose Lactate 0.6 Calcium C-Reactive Protein 0.5 01/24/22 01/24/22 01/24/22 05:54 05:54 10:30 WBC 9.95 RBC 4.67 Hgb 14.0 Hct 42.0 MCV 90 MCH 30 MCHC 33 RDW Coeff of Sukhdev 11.8 Plt Count 207 Neut % (Auto) 75.3 H Lymph % (Auto) 17.3 L [place] % (Auto) 6.5 Eos % (Auto) 0.2 Baso % (Auto) 0.2 Neut # (Auto) 7.50 H Lymph # (Auto) 1.70 [place] # (Auto) 0.60 Eos # (Auto) 0.02 Baso # (Auto) 0.02 Abs Immat Gran (auto) 0.05 Imm/Tot Granulo (auto) 0.5 Sodium 139 Potassium 4.1 Chloride 106 Carbon Dioxide 30 BUN 11 Creatinine 0.6 Estimated Creat Clear 84.78 Estimated GFR 107 Glucose 103 Lactate 0.6 Calcium 8.9 C-Reactive Protein 0.8
--- NOTE | 2022-01-24 18:19 | PC.NURSE ---
Addendum entered by Adilene Landaverde RN 01/24/22 19:34: Patient had large amount of loose stool at end of shift. Original Note: End of Shift: Patient pleasant and cooperative. Patient hypertensive but vitally stable, lungs clear, BS hypoactive, IV running LR at 125. Patient has rated pain at most 7/10, dilauded 1mg has been given x3 this shift. Patient is nauseous throughout day, an anti-emetic has been given when due even though they are PRN. Patient has had no emesis, and successfully drank all Gastrografin. Abdomen tender with activity and palpation, slightly distended but not firm. Patient not passing gas. Patient independent in room.
[2022-01-24 19:00] VITALS: BP 175/95; PULSE 90; RESP 18; TEMP 36.7; O2SAT 92
[2022-01-24 23:00] VITALS: BP 176/84; PULSE 91; RESP 18; TEMP 36.8; O2SAT 91
[2022-01-25 03:00] VITALS: BP 181/79; PULSE 80; RESP 18; O2SAT 91
[2022-01-25] MEDS: LEVOTHYROXINE 25 MCG TABLET PO (05:36)
[2022-01-25] MEDS: LEVOTHYROXINE 112 MCG TABLET PO (05:36)
--- NOTE | 2022-01-25 06:23 | PC.NURSE ---
: pt pleasant and cooperative. Pt c/o stomach cramping, aqua K pack applied, offered relief. Pt was having frequent loose stools, they stopped 12/15 PM. Pt states she has to be ?cleared out?. Pt woke and is feeling much better, no c/o nausea or pain. Pt said she is ready to go home. BP elevated. Pt said her BP is normally 120s/80s but she hasn?t been taking her Lisinopril/HCTZ because it makes her ?pee too much? and she can't get sleep when she has to get up frequently to urinate. she said her got her lisinopril/HCTZ refilled in Sep and hasnt really touched it since. Pt has been getting Amlodipine since admission to floor.
[2022-01-25 06:42] LABS: Lactate* 0.8 mmol/L (0.5-1.9)
[2022-01-25 06:58] LABS: Basophils Absolute Auto 0.05 K/uL (0.00-0.30); Basophils Percent Auto 0.6 % (0.0-3.0); Eosinophils Absolute Auto 0.15 K/uL (0.00-0.50); Eosinophils Percent Auto 1.9 % (0.0-7.0); Hematocrit 41.2 % (33.0-51.0); Hemoglobin* 13.7 gm/dL (12.0-16.0); Immature Granulocytes Abs Auto 0.01 K/uL (0.00-0.30); Immature Granulocytes Pct Auto 0.1 %; Lymphocytes Absolute Auto 1.83 K/uL (0.90-2.90); Lymphocytes Percent Auto 23.4 % (20-44); Mean Corpuscular HGB Conc 33 gm/dL (32-36); Mean Corpuscular Hemoglobin 30 pg (26-34); Mean Corpuscular Volume 90 fL (80-100); Monocytes Percent Auto 9.6 % (0.0-11.0); Neutrophils Absolute Auto 5.04 K/uL (1.7-7.0); Neutrophils Percent Auto 64.4 % (42.0-72.0); Platelet Count* 192 K/uL (140-440); RDW Coefficient of Variation % 11.6 % (11.5-15.5); Red Blood Count 4.59 m/uL (4.00-5.20); White Blood Count* 7.83 K/uL (4.50-11.00)
[2022-01-25 07:04] LABS: Chloride* 106 mmol/L (96-114); Sodium* 139 mmol/L (135-149)
[2022-01-25 07:05] LABS: Potassium* 3.8 mmol/L (3.6-5.1); Slide Review Reflex No
[2022-01-25 07:07] LABS: Creatinine* 0.5 mg/dL (0.5-1.5); Est. Creatinine Clearance* 101.73; Estimated Glomerular Filt Rate 111 ml/min
[2022-01-25 07:08] LABS: Blood Urea Nitrogen* 8 mg/dL (7-30); Calcium* 8.6 mg/dL (8.4-10.6); Carbon Dioxide* 28 mmol/L (20-32); Glucose* 84 mg/dL (60-115)
[2022-01-25 07:11] LABS: C Reactive Protein* 0.9 mg/dL (0.5-1.0)
[2022-01-25 08:00] VITALS: BP 170/99; PULSE 87; RESP 16; TEMP 36.9; O2SAT 94; O2SAT 99
[2022-01-25] MEDS: lisinopriL 20 MG TABLET 40 MG PO (10:00)
[2022-01-25] MEDS: AMLODIPINE 10 MG TABLET PO (10:01)
--- NOTE | 2022-01-25 10:25 | P.DS_ITS ---
DS: Providers Provider Date Seen: 01/25/22 Date of admission: 01/23/22 11:51 Primary care physician: Fausto Good PA-C Admitting Clinician: Sangeeta Wahl MD Attending Physician on discharge: Sangeeta Wahl MD Date of Discharge: 01/25/22 DS: Diagnosis Discharge Diagnosis (1) Bowel obstruction: Status: Acute Problem details: - noted on admission imaging 01/23/22 - + BM 01/25 with resolution of abdominal pain, tolerated clear liquid diet (2) Hypothyroidism (acquired): Status: Acute Problem details: - s/p thyroidectomy for Graves disease - TSH within normal limits on admission (3) Tobacco use: Status: Acute Problem details: - 1/2 ppd, tolerated nicotine patch during stay (4) Essential hypertension: Status: Acute Problem details: - blood pressure noted to be elevated throughout hospital stay. Patient on amlodipine, also has a Rx for lisinopril-HCTZ 20-12.5, not taking this 2/2 polyuria - while here, added lisinopril 40 mg, recommend close outpatient follow-up DS: Summary Hospital Course Hospital Course: Pleasant 52 year 6-year-old female, admitted to the hospital on 01/23/2022 for SBO. Patient did well with bowel rest; did not require NG tube placement. General s urgery followed patient as well. On hospital day 2, patient was given Gastrografin, subsequently started having BMs and had resolution of abdominal pain. She tolerated a clear liquid diet on 01/25 and was requesting discharge home after being seen by Nutrition team. Comorbidities include postoperative hypothyroidism, tobacco use, and essential hypertension, see above for details. Status at Discharge Functional status at discharge: independent ambulation Overall status at discharge: patient is progressing back to baseline Time Spent with Patient Time attestation: Total time spent providing and/or coordinating discharge services: Time spent: Greater than 30 minutes Specific discharge activities: Medication reconciliation, specialty consultation, care coordination, documentation Exam Narrative: Exam Narrative: GEN: Alert and sitting comfortably in bed, answering questions appropriately and nontoxic in appearance HEENT: Normal external ears, EOMIs bilaterally CV: RRR, No concerning murmurs, rubs, or gallops R: LCTA bilaterally without concerning wheezing, rales, or rhonchi, air movement adequate Abdomen: Soft, nontender, normal bowel sounds throughout Ext: wwp, no concerning edema Skin: No concerning skin lesions or rashes on exposed skin Neuro: Nonfocal Psych: Appropriate Const: Vital Signs, click to edit/add: Vital Signs - 24 hr 01/24/22 11:00 01/24/22 15:00 01/24/22 15:00 Temperature 98.4 F 98.3 F Pulse Rate [Left P ulse Oximeter] 65 63 63 Respiratory Rate 16 16 16 Blood Pressure [Le ft Arm] 190/95 H 176/84 H Pulse Oximetry 93 93 Oxygen Delivery Me thod Room Air Room Air 01/24/22 15:00 01/24/22 19:00 01/24/22 23:00 Temperature 98.1 F Pulse Rate [Left P ulse Oximeter] 90 91 Respiratory Rate 16 18 18 Blood Pressure [Le ft Arm] 175/95 H Pulse Oximetry 93 92 Oxygen Delivery Me thod Room Air Room Air 01/24/22 23:00 01/24/22 23:00 01/25/22 03:00 Temperature 98.3 F Pulse Rate [Left P ulse Oximeter] 91 80 Respiratory Rate 18 18 18 Blood Pressure [Le ft Arm] 176/84 H 181/79 H Pulse Oximetry 91 91 91 Oxygen Delivery Me thod Room Air Room Air Room Air DS: Data Data Completed and Pending Labs on day of discharge: Labs from last 24 hours 01/25/22 01/25/22 01/25/22 05:55 05:55 05:55 WBC 7.83 RBC 4.59 Hgb 13.7 Hct 41.2 MCV 90 MCH 30 MCHC 33 RDW Coeff of Sukhdev 11.6 Plt Count 192 Neut % (Auto) 64.4 Lymph % (Auto) 23.4 [place] % (Auto) 9.6 Eos % (Auto) 1.9 Baso % (Auto) 0.6 Neut # (Auto) 5.04 Lymph # (Auto) 1.83 [place] # (Auto) 0.80 Eos # (Auto) 0.15 Baso # (Auto) 0.05 Sodium 139 Potassium 3.8 Chloride 106 Carbon Dioxide 28 BUN 8 Creatinine 0.5 Estimated Creat Clear 101.73 Estimated GFR 111 Glucose 84 Lactate 0.8 Calcium 8.6 C-Reactive Protein 0.9 01/24/22 01/24/22 10:30 05:54 WBC RBC Hgb Hct MCV MCH MCHC RDW Coeff of Sukhdev Plt Count Neut % (Auto) Lymph % (Auto) [place] % (Auto) Eos % (Auto) Baso % (Auto) Neut # (Auto) Lymph # (Auto) [place] # (Auto) Eos # (Auto) Baso # (Auto) Sodium Potassium Chloride Carbon Dioxide BUN Creatinine Estimated Creat Clear Estimated GFR Glucose Lactate 0.6 Calcium C-Reactive Protein 0.8 Discharge Plan Discharge Disposition: Home, Self-Care Date of Admission: 01/23/22 11:51 Consulting Providers: Etelvina Lara Primary Care Provider: Fausto Good Condition: Improved Anticipated Discharge Date/Time: 01/25/22 10:20 Discharge Medications: New lisinopril 20 mg Tablet 40 mg PO DAILY Qty: 60 0RF Rx Instructions: may substitute for 40mg tabs nicotine 7 mg/24 hr Patch 24 Hour 1 patch transdermal Q24H PRNQty: 14 0RF Rx Instructions: 30 Continued amlodipine 10 mg tablet 10 mg PO DAILY Label Comments: TAKE 1 TABLET BY MOUTH ONCE A DAY epinephrine 0.3 mg/0.3 mL auto-injector 0.3 ml IM PRN PRN Label Comments: INJECT 0.3 ML (0.3 MG TOTAL) INTRAMUSCULARLY NEEDED FOR ANAPHYLAXIS. INJECT INTO THE THIGH. ibuprofen 600 mg tablet 600 mg PO Q6H PRN Label Comments: TAKE 1 TABLET (600 MG TOTAL) BY MOUTH EVERY 6 (SIX) HOURS NEEDED FOR PAIN OR MODERATE PAIN OR SCORE 4-6 OF 10 FOR UP TO 14 DAYS. levothyroxine 137 mcg tablet 137 mcg PO DAILY Label Comments: TAKE 1 TABLET (137 MCG) BY MOUTH DAILY. fluticasone propionate 50 mcg/actuation spray,suspension 2 spray INTRANASAL DAILY Label Comments: INSTILL 2 SPRAYS IN EACH NOSTRIL DAILY cetirizine 10 mg tablet 10 mg PO DAILY PRN Label Comments: TAKE ONE TABLET(10MG) BY MOUTH DAILY NEEDED FOR ALLERGIES Discharge Orders: Discharge Order (Routine); Ordered 01/25/22 Ordered By: Sangeeta Wahl Patient Education: Lisinopril (By mouth), Nicotine (Absorbed through the skin), Bowel Obstruction (DC) Additional Instructions: If you'd like to stay on the Nicotine patches, I sent some to [facility]. For your BP, continue the Amlodipine and add in Lisinopril 40mg daily (new Rx sent to [facility]). Stop your Lisinopril-HCTZ. See your PCP next week for hospital f/u and BP check. Activity Level: No Restrictions Diet Detail: Full liquids today, advance as tolerated Follow Up Appointments: Fausto Good PA-C [Primary Care Provider] - 02/07/22 9:40 am Forms: [facility] [employer] [facility] Info Instructions
--- NOTE | 2022-01-25 10:46 | NUTR.NU ---
RDN with nursing request for diet education related to low fiber diet. Patient was admitted with SBO. She agreed to visit with RDN without designated caregiver present. She reports that she has Hx of Graves' Diseae and gongora snot tolerate any carbohydrates including grain, dairy, and fruit products. She eats pizza, pot roasts with cooked potatoes and carrots/celery, and eggs with hashbrowns. Patient was provided diet education on a low fiber diet. Discussed foods to include and foods to avoid until MD recommends advancing to potentially high fiber (or per MD recommendations). Verbal and written information as well as sample menus provided on both diets from AND [facility].Patient verbalized understanding.?RDN's contact information was provided and patient was encouraged to contact RDN with questions.
--- NOTE | 2022-01-25 10:55 | PM.GSPN ---
Subjective Subjective Date Seen: 01/25/22 Interval history: The patient drank Gastrografin yesterday however repeat x-ray was not obtained because she began stooling and her pain completely went away. She is tolerating clear liquids without difficulty. Exam Narrative: Exam Narrative: General: No acute distress Abdomen: Soft, nontender, nondistended Const: Vital Signs, click to edit/add: Vital Signs - 24 hr 01/24/22 11:00 01/24/22 15:00 01/24/22 15:00 Temperature 98.4 F 98.3 F Pulse Rate [Left P ulse Oximeter] 65 63 63 Respiratory Rate 16 16 16 Blood Pressure [Le ft Arm] 190/95 H 176/84 H Pulse Oximetry 93 93 Oxygen Delivery Me thod Room Air Room Air 01/24/22 15:00 01/24/22 19:00 01/24/22 23:00 Temperature 98.1 F Pulse Rate [Left P ulse Oximeter] 90 91 Respiratory Rate 16 18 18 Blood Pressure [Le ft Arm] 175/95 H Pulse Oximetry 93 92 Oxygen Delivery Me thod Room Air Room Air 01/24/22 23:00 01/24/22 23:00 01/25/22 03:00 Temperature 98.3 F Pulse Rate [Left P ulse Oximeter] 91 80 Respiratory Rate 18 18 18 Blood Pressure [Le ft Arm] 176/84 H 181/79 H Pulse Oximetry 91 91 91 Oxygen Delivery Me thod Room Air Room Air Room Air Progress Note: A&P Assessment and plan (1) Tobacco use: Problem details: - 1/2 ppd, tolerated nicotine patch during stay Status: Acute (2) Essential hypertension: Problem details: - blood pressure noted to be elevated throughout hospital stay. Patient on amlodipine, also has a Rx for lisinopril-HCTZ 20-12.5, not taking this 2/2 polyuria - while here, added lisinopril 40 mg, recommend close outpatient follow-up Status: Acute (3) Hypothyroidism (acquired): Problem details: - s/p thyroidectomy for Graves disease - TSH within normal limits on admission Status: Acute (4) Ileitis: Status: Acute Plan The patient is a 56-year-old female with abdominal pain and possible small-bowel obstruction versus ileitis. She has now completely resolved after giving Gastrografin. I think it is fine for her to discharge with a soft diet. I told her she can advance her diet as tolerated once she feels completely back to normal. She does not need any surgical follow-up.
--- NOTE | 2022-01-25 15:09 | PC.NURSE ---
shift note: pt up indept in room. elevated BP. pt asymptomatic. Dr. Wahl notified of BP. orders to increase lisinopril. Pt states she had med loose BM x3. IV dc'd intact Rt AC. Roller Varnisher notified for consult on low fiber diet. Dc instructions reviewed and copies sent with pt at fl. Belongings sent with pt at fl.
== END 2022-01-25 12:00 | disposition home or self-care (01) | DRG 247 ==
LOC: ED 08:19 → MEDSURG 09:36
PROVIDERS: Family Medicine; Surgery; Admitting Provider Family Medicine; Emergency Provider Family Medicine; PCP Physician Assistant; Visit Provider Family Medicine
DX: K56.609 Unspecified intestinal obstruction, unspecified as to partial versus complete obstruction (principal); I10 Essential (primary) hypertension; E89.0 Postprocedural hypothyroidism; E05.00 Thyrotoxicosis with diffuse goiter without thyrotoxic crisis or storm; K52.9 Noninfective gastroenteritis and colitis, unspecified; F17.210 Nicotine dependence, cigarettes, uncomplicated; J45.909 Unspecified asthma, uncomplicated; Z90.49 Acquired absence of other specified parts of digestive tract
CPT/HCPCS: 36415; 74018; 74176; 80048; 80076; 81003; 81015; 83605; 84443; 85025; 86140; 87502; 87634; 87635; 99285; A9270; C9113; J0780; J1170; J2270; J2405; J3010; J7030; J7120; S4990